=== PATIENT | female | born 1945 | race African-American/Black ===

== ENCOUNTER 2017-06-13 10:01 | Emergency (ER) | payer MEDICARE, MEDICAID, SELFPAY ==
[2017-06-13 10:26] VITALS: BP 194/104; PULSE 96; RESP 18; TEMP 37.4; O2SAT 98; BMI 28.9
--- NOTE | 2017-06-13 10:35 | HMH.EDUTC ---
[facility] [place] Disposition Clinical Impression: Muscle spasm Disposition: Home, Self-Care Condition on Discharge: Good Instructions: DI for Muscle Spasm Additional Instructions: *Ibuprofen monae 6 hours with meal as needed for pain/inflammation *Not additional anti-inflammatory like motrin, aleve, advil with the above amount of ibuprofen. You can still take Tylenol every 4 hours as needed if you need something else for pain *Ice 20 minutes every 2 hours for the first 48 hours after the initial injury followed by moist heat every 20 minutes 3-4 times a day to affected area *Muscle relaxer every 8 hours as needed for muscle spasms but remember, it WILL cause drowsiness You cannot take it and drive, operate machinery or care for small children. *Keep this area active, no movement leads to more stiffness, However take it easy and avoid heavy lifting pushing or pulling Follow up with family doctor in 24-48 hours if no improvement or worsening of symptoms Straight to ER if any life threatening problems such as chest pain, short of breath or any signs of heart problems Return if needed Take medication as prescribed Prescriptions: Methocarbamol [Robaxin 500mg Tab] 500 mg PO BID PRN #30 tab PRN Reason: Muscle Spasm Referrals: Emmanuelle Hackett MD [Primary Care Provider] - Time of Disposition: 11:23 Medical Decision Making - Medical Records Medical records reviewed: Yes: I reviewed the patient's medical records. - Marek Inquiry Pt receiving controlled substance: No Marek was queried for this patient: No Vital Signs: 06/13/17 10:26 Temperature 99.3 F Temperature Source Temporal Artery Scan Pulse Rate [Right Brachial] 96 H Respiratory Rate 18 Blood Pressure [Right Arm] 194/104 Blood Pressure Mean [Right Arm] 134 Blood Pressure Source [Right Arm] Automatic Cuff Blood Pressure Position [Right Arm] Sitting 02 Sat by Pulse Oximetry 98 Oxygen Delivery Method Room Air - Lab Data Lab results reviewed: Yes: I reviewed the patient's lab results. - Reevaluation(s) Time: 11:04 Reevaluation #1: Discussed treatment options and medication with pharmacist and agreed with recommendation of Robaxin 500mg bid [facility] [place] HPI - General Stated complaint: pain in neck area Time Seen by Provider: 06/13/17 10:30 Mode of Arrival: Family Vehicle Source of Information: Patient Limitations: No Limitations Description of Symptoms (Recalled from Triage Doc. by RN): C/O PAIN LEFT SIDE OF NECK X 4 DAYS HEENT Symptoms (Recalled from RN notes): No Resp Symptoms (Recalled from RN notes): No Skin Symptoms (Recalled from RN notes): No MS Symptoms (Recalled from RN notes): Yes Functional Status (Recalled from RN notes): N/A - History of Present Illness Provider Complaint: Patient state that she was recently moving furniture and feels like she may have pulled something in her left neck and shoulder area State that it hurts when she tries to turn her head or move that muscle in her shoulder area. State that she has tried heat pad and aspercreame but not helped and thinks she may need a little something stronger - Related Data Home Medications Medication Instructions Recorded Confirmed Aspirin [Aspir 81] 81 mg PO DAILY 06/13/17 06/13/17 Ferrous Sulfate [Iron] 325 mg PO BID 06/13/17 06/13/17 Levothyroxine Sodium 125 mcg PO DAILY 06/13/17 06/13/17 [Levothyroxine 125mcg (0.125mg) Tab] Lisinopril [Lisinopril 20mg Tab] 20 mg PO DAILY 06/13/17 06/13/17 Metformin HCl [Metformin 500mg 500 mg PO TID 06/13/17 06/13/17 Tablet] Simvastatin [Simvastatin] 10 mg PO DAILY 06/13/17 06/13/17 Verapamil HCl 120 mg PO DAILY 06/13/17 06/13/17 cloNIDine HCl [cloNIDine 0.1mg 0.1 mg PO BID 06/13/17 06/13/17 Tablet] glipiZIDE [Glipizide ER] 10 mg PO BID 06/13/17 06/13/17 hydroCHLOROthiazide [HCTZ 25mg 25 mg PO DAILY 06/13/17 06/13/17 tab] Previous Rx's Medication Instructions Recorded Methocarbamol [Robaxin 500mg Tab] 500 mg PO BID PRN #30 tab 06/13/17
--- NOTE | 2017-06-13 10:46 | ED_ITS ---
[facility] [place] Clinical Impression: Muscle spasm Disposition: Home, Self-Care Condition on Discharge: Good Instructions: DI for Muscle Spasm Additional Instructions: *Ibuprofen monae 6 hours with meal as needed for pain/inflammation *Not additional anti-inflammatory like motrin, aleve, advil with the above amount of ibuprofen. You can still take Tylenol every 4 hours as needed if you need something else for pain *Ice 20 minutes every 2 hours for the first 48 hours after the initial injury followed by moist heat every 20 minutes 3-4 times a day to affected area *Muscle relaxer every 8 hours as needed for muscle spasms but remember, it WILL cause drowsiness You cannot take it and drive, operate machinery or care for small children. *Keep this area active, no movement leads to more stiffness, However take it easy and avoid heavy lifting pushing or pulling Follow up with family doctor in 24-48 hours if no improvement or worsening of symptoms Straight to ER if any life threatening problems such as chest pain, short of breath or any signs of heart problems Return if needed Take medication as prescribed Prescriptions: Methocarbamol [Robaxin 500mg Tab] 500 mg PO BID PRN #30 tab PRN Reason: Muscle Spasm Referrals: Emmanuelle Hackett MD [Primary Care Provider] - Time of Disposition: 11:23 Medical Decision Making - Medical Records Medical records reviewed: Yes: I reviewed the patient's medical records. - Marek Inquiry Pt receiving controlled substance: No Marek was queried for this patient: No Vital Signs: 06/13/17 10:26 Temperature 99.3 F Temperature Source Temporal Artery Scan Pulse Rate [Right Brachial] 96 H Respiratory Rate 18 Blood Pressure [Right Arm] 194/104 Blood Pressure Mean [Right Arm] 134 Blood Pressure Source [Right Arm] Automatic Cuff Blood Pressure Position [Right Arm] Sitting 02 Sat by Pulse Oximetry 98 Oxygen Delivery Method Room Air - Lab Data Lab results reviewed: Yes: I reviewed the patient's lab results. - Reevaluation(s) Time: 11:04 Reevaluation #1: Discussed treatment options and medication with pharmacist and agreed with recommendation of Robaxin 500mg bid [facility] [place] - General Stated complaint: pain in neck area Time Seen by Provider: 06/13/17 10:30 Mode of Arrival: Family Vehicle Source of Information: Patient Limitations: No Limitations Description of Symptoms (Recalled from Triage Doc. by RN): C/O PAIN LEFT SIDE OF NECK X 4 DAYS HEENT Symptoms (Recalled from RN notes): No Resp Symptoms (Recalled from RN notes): No Skin Symptoms (Recalled from RN notes): No MS Symptoms (Recalled from RN notes): Yes Functional Status (Recalled from RN notes): N/A - History of Present Illness Provider Complaint: Patient state that she was recently moving furniture and feels like she may have pulled something in her left neck and shoulder area State that it hurts when she tries to turn her head or move that muscle in her shoulder area. State that she has tried heat pad and aspercreame but not helped and thinks she may need a little something stronger - Related Data Home Medications Medication Instructions Recorded Confirmed Aspirin [Aspir 81] 81 mg PO DAILY 06/13/17 06/13/17 Ferrous Sulfate [Iron] 325 mg PO BID 06/13/17 06/13/17 Levothyroxine Sodium 125 mcg PO DAILY 06/13/17 06/13/17 [Levothyroxine 125mcg (0.125mg) Tab] Lisinopril [Lisinopril 20mg Tab] 20 mg P
[2017-06-13 11:26] VITALS: BP 175/88
[2017-06-13 11:28] VITALS: BP 175/88; PULSE 88; RESP 20; TEMP 37.2; O2SAT 97
== END 2017-06-13 11:30 | disposition home or self-care (01) ==
PROVIDERS: Emergency Provider Nurse Practitioner; PCP Family Medicine
DX: M62.838 Other muscle spasm (principal); M54.2 Cervicalgia; I10 Essential (primary) hypertension; E11.9 Type 2 diabetes mellitus without complications; Z79.84 Long term (current) use of oral hypoglycemic drugs
CPT/HCPCS: G0463; 99201

== ENCOUNTER → 2017-09-13 13:50 | Outpatient (CLI) | payer MEDICARE, MEDICAID, SELFPAY ==
[2017-09-13 15:24] LABS: Free Thyroxine Index 3.5 ug/dL (5.93-13.13); T4 (Thyroxine) 9.4 ug/dl (4.7-13.3); Thyroid Stimulating Hormone 0.58 uIU/ml (0.358-3.740); Triiodothryronine (T3) Uptake 37 % (31-39)
[2017-09-15 07:23] LABS: Thyroid Peroxidase Antibodies 10 IU/mL (0-34)
[2017-09-16 06:03] LABS: Triiodothyronine (T3) Free 2.6 pg/mL (2.0-4.4)
== END ==
PROVIDERS: PCP Family Medicine; Visit Provider Otolaryngology
DX: E03.9 Hypothyroidism, unspecified (principal)
CPT/HCPCS: 36415; 84436; 84443; 84479; 84481; 86376

== ENCOUNTER → 2017-09-17 14:17 | Outpatient (CLI) | payer MEDICARE, MEDICAID, SELFPAY ==
--- NOTE | 2017-09-17 14:19 | US_ITS ---
ULTRASOUND THYROID HISTORY:. Follow-up thyroidectomy COMPARISON: Previous thyroid ultrasound, preoperative 03-09-14 PROCEDURE: Multiple sagittal and transverse ultrasound images of the thyroid. FINDINGS: The patient has had the thyroid totally removed in 2014. No recurrent thyroid mass or nodule evident.. The generous tracheal shadow dominates of midline with vascular structures flank to the right and left. No recurrent mass evident by ultrasound survey. Consider CT neck further evaluate the palpable areas developed IMPRESSION: Total thyroidectomy 2014. Total Removed 2014 as per patient. No evident nor appreciable recurrent nodules or masses.
== END ==
PROVIDERS: PCP Family Medicine; Visit Provider Otolaryngology
DX: E03.9 Hypothyroidism, unspecified (principal)
CPT/HCPCS: 76536

== ENCOUNTER 2017-12-22 23:29 | Observation (INO) ==
[2017-12-22 23:43] LABS: Basophils % 0.5 % (0.1-2.0); Eosinophils # 0.2 K/mm3 (0.0-0.4); Hematocrit 37.4 % (37.0-47.0); Hemoglobin 12.2 g/dL (12.2-16.2); Lymphocytes # 3.1 K/mm3 (0.7-4.5); Lymphocytes % 34.3 K/mm3 (10-50); Mean Corpuscular HGB Conc 32.7 g/dL (31.8-35.4); Mean Corpuscular Volume 88.6 fl (81-99); Mean Platelet Volume 7.8 fl (7.4-10.4); Monocytes # 0.8 K/mm3 (0.1-1.0); Monocytes % 9.2 % (1.7-9.3); Neutrophils # 4.9 K/mm3 (1.8-7.8); Platelet Count 363 K/mm3 (142-424); Red Blood Count 4.22 M/mm3 (4.20-5.40); Red Cell Distribution Width 14.8 % (11.5-17.5)
[2017-12-22 23:56] LABS: Anion Gap 14.6 mEq/L (5-15); Blood Urea Nitrogen 29 mg/dL (7-18); Calcium 9.4 mg/dL (8.5-10.1); Carbon Dioxide 28 mmol/L (21.0-32.0); Chloride 103 mmol/L (98-107); Glucose 96 mg/dL (74-106); Potassium 3.6 mmoL/L (3.5-5.1); Sodium 142 mmol/L (136-145)
[2017-12-23 00:18] LABS: Microscopic, Urine URINE MICROSCOPIC (MICROSCOPIC)
[2017-12-23 00:19] LABS: Appearance,Urine CLEAR (Clear); Bilirubin,Urine Negative (Negative); Blood, Urine Negative (Negative); Color,Urine YELLOW (Yellow); Glucose,Urine (UA) Negative (Negative); Ketones,Urine Negative (Negative); Leukocyte Esterase,Urine Negative (Negative); Protein,Urine Negative (Negative); Urobilinogen,Urine 0.2 EU/dl (0.2)
[2017-12-23 00:26] LABS: Squamous Epithelial Cell,Urine Occasional #/hpf (0-5); WBC,Urine Occasional #/hpf (0-3)
[2017-12-23 00:27] LABS: Bacteria,Urine Trace /lpf
--- NOTE | 2017-12-23 01:30 | Emergency Department Note ---
ED Disposition Clinical Impression: Hypertensive emergency, Renal insufficiency Chest pain Qualifiers: Chest pain type: precordial pain Qualified Code(s): R07.2 - Precordial pain Disposition: Admitted as Observation Condition on Discharge: Good Referrals: Emmanuelle Hackett MD [Primary Care Provider] - - Critical Care Critical Care Time: No Attestation: On 12/22/17, the high probability of a clinically significant, sudden or life threatening deterioration of the following system(s) required my full and direct attention, intervention and personal management. The time I documented below is in addition to time spent performing reported procedures but includes the following listed in this critical care notation. Medical Decision Making - Medical Records Medical records reviewed: Yes: I reviewed the patient's medical records. - Marek Inquiry Pt receiving controlled substance: No Vital Signs: 12/22/17 23:30 12/22/17 23:38 12/23/17 00:00 Temperature 98.6 F 98.5 F Temperature Source Oral Oral Pulse Rate [Right] 94 H 67 73 Respiratory Rate 20 15 15 Blood Pressure [Right Arm] 250/130 H 221/115 H 227/101 H Blood Pressure Mean [Right Arm] 170 150 143 Blood Pressure Source [Right Arm] Manual Cuff/ Doppler Automatic Cuff Blood Pressure Position [Right Arm] Supine 02 Sat by Pulse Oximetry 98 99 100 Oxygen Delivery Method Room Air Room Air Room Air 12/23/17 00:12 12/23/17 00:13 12/23/17 00:37 Temperature Temperature Source Pulse Rate [Right] 65 65 69 Respiratory Rate 20 20 15 Blood Pressure [Right Arm] 233/108 H 230/108 H 224/116 H Blood Pressure Mean [Right Arm] 149 148 152 Blood Pressure Source [Right Arm] Manual Cuff/ Auscultation Manual Cuff/ Auscultation Blood Pressure Position [Right Arm] Sitting 02 Sat by Pulse Oximetry 100 97 97 Oxygen Delivery Method Room Air Room Air Room Air 12/23/17 00:52 12/23/17 01:17 Temperature Temperature Source Pulse Rate [Right] 59 L 61 Respiratory Rate 15 Blood Pressure [Right Arm] 221/120 H 199/99 H Blood Pressure Mean [Right Arm] 153 132 Blood Pressure Source [Right Arm] Blood Pressure Position [Right Arm] 02 Sat by Pulse Oximetry 98 100 Oxygen Delivery Method - Lab Data Lab results reviewed: Yes: I reviewed the patient's lab results. Lab Results 12/22/17 23:30: WBC 9.0, RBC 4.22, Hgb 12.2, Hct 37.4, MCV 88.6, MCH 29.0, MCHC 32.7, RDW 14.8, Plt Count 363, MPV 7.8, Neut % (Auto) 54.0, Lymph % (Auto) 34.3, [place] % (Auto) 9.2, Eos % (Auto) 2.0, Baso % (Auto) 0.5, Neut # (Auto) 4.9, Lymph # (Auto) 3.1, [place] # (Auto) 0.8, Eos # (Auto) 0.2, Baso # (Auto) 0.0 12/22/17 23:30: Sodium 142, Potassium 3.6, Chloride 103, Carbon Dioxide 28, Anion Gap 14.6, BUN 29 H, Creatinine 1.52 H, Estimated Creat Clear 35, Estimated GFR 34 L, Est GFR ( Amer) 41 L, Glucose 96, Calcium 9.4, Troponin I < 0.02 12/23/17 00:15: Urine Color Yellow, Urine Appearance Clear, Urine pH 7.0, Ur Specific [place] 1.010, Urine Protein Negative, Urine Glucose (UA) Negative, Urine Ketones Negative, Urine Blood Negative, Urine Nitrate Negative, Urine Bilirubin Negative, Urine Urobilinogen 0.2, Ur Leukocyte Esterase Negative, Urine WBC Occasional, Ur Squamous Epith Cells Occasional, Urine Bacteria Trace Result diagrams: 12/22/17 23:30 12/22/17 23:30 Orders (Tests/Meds): ED MEDICATIONS Discontinued Medications Generic Name Dose Route Start Last Admin Trade Name Maria Teresa PRN Reason Stop Dose Admin Aspirin 243 mg 12/22/17 23:35 12/22/17 23:37 Aspirin 81mg Chewable Tablet PO 12/22/17 23:36 243 mg ONCE ONE Administration Lisinopril 20 mg 12/23/17 00:59 12/23/17 01:00 Zestril 20mg Tab PO 12/23/17 01:00 20 mg ONCE ONE Administration Metoprolol Tartrate 2.5 mg 12/23/17 00:02 12/23/17 00:03 Metoprolol Tartrate 5mg/5ml Vial IV 12/23/17 00:03 2.5 mg ONCE ONE Administration Metoprolol Tartrate 2.5 mg 12/23/17 00:37 12/23/17 00:38 Metoprolol Tartrate 5mg/5ml Vial IV 12/23/17 00:38 2.5 mg ONCE ONE Administration Nitroglycerin 1 gm 12/22/17 23:35 12/22/17 23:37 Nitroglycerin 1 Inch Oint Udp TD 12/22/17 23:36 1 gm ONCE ONE Administration ORDERS Category Date Time Status CT head/brain wo con Stat Cat Scan 12/23/17 00:10 Taken XR chest 2V Stat Exams 12/22/17 23:35 Taken Urinalysis-Acute [Urinalysis and Microscopic] Stat Lab 12/23/17 00:15 Ordered 12-lead EKG Request [ECG Request by /Breanne] Stat Y 12/22/17 23:35 Ordered - Radiology Data #1 Image(s): Chest Image Reviewed: Yes I reviewed the patient's radiology image Preliminary Findings: Normal/NAD - CT Data CT Scan: Head Time Received: 01:34 Preliminary Findings: Normal/NAD - ECG Data Tracing #1 Normal Sinus Rhythm: Yes Ischemic changes: non-specific ST-T wave changes Chest Pain HPI - General Chief Complaint: Chest Pain Stated Complaint: Chest pain Time Seen by Provider: 12/23/17 00:00 Mode of Arrival: Ambulatory Source of Information: Patient, Relative, Medical Record Limitations: No Limitations Description of Symptoms (Recalled from ER Triage Doc. by RN): Midsternal CP that radiates to left side, denies any other s/s. - History of Present Illness HPI narrative: pt with lt sided chest pain with rad to back which started tonight and reported as new - pt has diabetes and htn - no recent card cath and had shlomo gxt 04/24 complaint: chest pain indicative of cardiac Onset (ago): hour(s) Duration: constant Activity at onset: during rest Pain location: left chest Severity: moderate Associated symptoms: nausea Risk Factors for CAD: Hypertension, Family Hx of CAD, Diabetes Treatments prior to or on arrival for Cardiac Chest Pain: none - MICHAEL Score Non-Stemi Age of patient: 65 yrs or more Number of risk factors for CAD: Presence of 3 or more Prior coronary artery stenosis(seen in coronary angiography): Less than 50% ST-Segment deviation on ECG (more than 1 min): Absent Prior aspirin intake: ASA intake in the last 7 days Severe anginal chest pain: No or one episode in last 24 hours Elevated cardiac markers(CK-MB or troponin): Absent Non-Stemi Risk Score: 3 - Related Data Prior Cardiac Testing/Procedures: Stress Test On Oral Contraceptives: No Home Medications Medication Instructions Recorded Confirmed Aspirin [Aspir 81] 81 mg PO DAILY 06/13/17 12/22/17 Ferrous Sulfate [Iron] 325 mg PO BID 06/13/17 12/22/17 Levothyroxine Sodium 125 mcg PO DAILY 06/13/17 12/22/17 [Levothyroxine 125mcg (0.125mg) Tab] Lisinopril [Lisinopril 20mg Tab] 20 mg PO DAILY 06/13/17 12/22/17 Metformin HCl [Glucophage 500mg 500 mg PO TID 06/13/17 12/22/17 Tablet] Simvastatin 10 mg PO DAILY 06/13/17 12/22/17 Verapamil HCl 120 mg PO DAILY 06/13/17 12/22/17 hydroCHLOROthiazide [HCTZ 25mg 25 mg PO DAILY 06/13/17 12/22/17 tab] cloNIDine HCl [cloNIDine 0.2mg 0.2 mg PO BID 12/22/17 12/22/17 Tablet] glipiZIDE [Glipizide] 10 mg PO BID 12/22/17 12/22/17 Previous Rx's Medication Instructions Recorded Methocarbamol [Robaxin 500mg Tab] 500 mg PO BID PRN #30 tab 06/13/17 Allergies Allergy/AdvReac Type Severity Reaction Status Date / Time No Known Allergies Allergy Verified 09/23/17 13:57 [facility] History I have reviewed the patient's past medical history: Yes Medical History: Reports:: Diabetes Mellitus Type 2 - Social History Smoking Status: Never smoker Alcohol Intake: never Substance Use Type: denies use - Psychiatric History Expresses thoughts of harming self/others: None Suicide Plan Description: No Plan Family Hx:: Hyperlipidemia, Hypertension ROS Obtained: Yes All systems reviewed & no additional complaints - Constitutional Constitutional: Denies fever(s) - Eyes Eyes: Denies change in vision - ENT Ears, Nose, Mouth, and Throat: Denies sore throat - Cardiovascular Cardiovascular: Reports chest pain, Denies dyspnea - Respiratory Respiratory: No cough - Gastrointestinal Gastrointestingal: Denies: abdominal pain - Genitourinary Female Genitourinary: Denies hematuria - Musculoskeletal Musculoskeletal: Denies joint pain - Integumentary/Breasts Skin/Breast: Denies rash - Neurologic Neurologic: Denies seizure-like activity Physical Exam - General General appearance: alert - Head Head exam: normocephalic - Eye Eye exam: Present: PERRL, EOMI - ENT ENT exam: Present: mucous membranes dry - Neck Neck exam: Present: trachea midline - Respiratory Respiratory exam: Present: normal lung sounds bilaterally. Absent: respiratory distress - Cardiovascular Cardiovascular exam: Present: regular rate, systolic murmur, +S4 - Abdominal Exam Abdominal exam: Present: soft - Extremities Exam Extremities exam: Absent: calf tenderness - Neurological Exam Neurological exam: Present: alert, oriented X3, CN II-XII intact - Psychiatric Psychiatric exam: Present: normal affect - Skin Skin exam: Absent: rash
[2017-12-23 02:16] LABS: T4 (Thyroxine) 10.4 ug/dl (4.7-13.3); Thyroid Stimulating Hormone 0.62 uIU/ml (0.358-3.740)
[2017-12-23 05:24] LABS: Basophils % 0.4 % (0.1-2.0); Eosinophils # 0.2 K/mm3 (0.0-0.4); Eosinophils % 2.1 % (0.1-12.0); Hematocrit 37.1 % (37.0-47.0); Hemoglobin 11.9 g/dL (12.2-16.2); Lymphocytes # 2.2 K/mm3 (0.7-4.5); Lymphocytes % 27.6 K/mm3 (10-50); Mean Corpuscular Hemoglobin 28.7 pg (27.0-31.2); Mean Corpuscular Volume 89.6 fl (81-99); Mean Platelet Volume 7.6 fl (7.4-10.4); Monocytes # 0.6 K/mm3 (0.1-1.0); Monocytes % 7.9 % (1.7-9.3); Neutrophils # 4.8 K/mm3 (1.8-7.8); Neutrophils % 61.9 % (37.0-80.0); Platelet Count 348 K/mm3 (142-424); Red Blood Count 4.13 M/mm3 (4.20-5.40); Red Cell Distribution Width 14.8 % (11.5-17.5); White Blood Count 7.8 K/mm3 (4.8-10.8)
[2017-12-23 06:38] LABS: Anion Gap 17.8 mEq/L (5-15); Calcium 9.2 mg/dL (8.5-10.1); Potassium 3.8 mmoL/L (3.5-5.1)
--- NOTE | 2017-12-23 07:14 | History & Physical Report ---
*Admission Date: 12/23/17 *Chief complaint: Chest pain *History of present illness: 72-year-old female with history of diabetes, hypertension, chronic kidney disease stage III presented to the emergency department after onset of chest pain described as being in the upper left pectoral area radiating into the shoulder blade and down the left arm. Patient was found to be hypertensive with a systolic pressure of 230. She was treated with metoprolol, clonidine. Blood pressures were brought down to the low 200s and 190s. Initial EKG and cardiac enzymes were unremarkable. Patient was admitted for serial enzymes as well as further treatment of her hypertensive emergency. Since admission to the floor patient's chest pain has resolved. She admits she feels an aching pain in the left shoulder blade still. There is no pain radiating down the left arm. Patient has a long history of hypertension that has been difficult to control. She has undergone prior cardiac catheterizations in 2005 and 2007 as well as Lexiscan stress test in 2017. She has never been found to have significant obstructive coronary disease. She is also a diabetic. Her last A1c was 6.4. 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 [facility] [place] History I have reviewed the patient's past medical history: Yes Medical History: Reports:: Diabetes Mellitus Type 2, Hypertension Denies:: Cancer, MRSA Other Medical History: Reports: Anemia, Arthritis, Thyroid Disease Other Surgeries: Yes: Colonoscopy, Colostomy, Hysterectomy-Total, Thyroidectomy Amputation: No Fractures: No - *Social History Educational Level: Attended High School Smoking Status: Never smoker Alcohol Intake: never Substance Use Type: denies use Occupational Status: retired Housing: house - Psychiatric History Expresses thoughts of harming self/others: None Suicide Plan Description: No Plan *Family Hx:: Cancer, Heart Attack, Hyperlipidemia, Hypertension Review of Systems - Review of Systems Review of systems:: pertinent systems reviewed and negative unless documented below - *Neurologic Denies seizure-like activity Meds Home Medications Medication Instructions Recorded Confirmed Type Aspirin [Aspir 81] 81 mg PO DAILY 06/13/17 12/22/17 History Ferrous Sulfate [Iron] 325 mg PO BID 06/13/17 12/22/17 History Levothyroxine Sodium 112 mcg PO DAILY 06/13/17 12/23/17 History [Levothyroxine 125mcg (0.125mg) Tab] Lisinopril [Lisinopril 20mg Tab] 20 mg PO DAILY 06/13/17 12/22/17 History Metformin HCl [Glucophage 500mg 500 mg PO TID 06/13/17 12/22/17 History Tablet] Simvastatin 10 mg PO DAILY 06/13/17 12/22/17 History Verapamil HCl 120 mg PO DAILY 06/13/17 12/22/17 History hydroCHLOROthiazide [HCTZ 25mg 25 mg PO DAILY 06/13/17 12/22/17 History tab] cloNIDine HCl [cloNIDine 0.2mg 0.2 mg PO BID 12/22/17 12/22/17 History Tablet] glipiZIDE [Glipizide] 10 mg PO BID 12/22/17 12/22/17 History Allergies Allergy/AdvReac Type Severity Reaction Status Date / Time No Known Allergies Allergy Verified 09/23/17 13:57 Exam Vital signs and Labs for Last 24 Hours: Temp Pulse Resp BP Pulse Ox 98.2 F 62 17 196/86 H 100 12/23/17 04:04 12/23/17 04:04 12/23/17 04:04 12/23/17 04:04 12/23/17 04:04 Laboratory Results - last 24 hr 12/22/17 23:30: WBC 9.0, RBC 4.22, Hgb 12.2, Hct 37.4, MCV 88.6, MCH 29.0, MCHC 32.7, RDW 14.8, Plt Count 363, MPV 7.8, Neut % (Auto) 54.0, Lymph % (Auto) 34.3, [place] % (Auto) 9.2, Eos % (Auto) 2.0, Baso % (Auto) 0.5, Neut # (Auto) 4.9, Lymph # (Auto) 3.1, [place] # (Auto) 0.8, Eos # (Auto) 0.2, Baso # (Auto) 0.0 12/22/17 23:30: Sodium 142, Potassium 3.6, Chloride 103, Carbon Dioxide 28, A nion Gap 14.6, BUN 29 H, Creatinine 1.52 H, Estimated Creat Clear 35, Estimated GFR 34 L, Est GFR ( Amer) 41 L, Glucose 96, Calcium 9.4, Troponin I < 0.02 12/23/17 00:00: TSH 0.62, Thyroxine (T4) 10.4 12/23/17 00:15: Urine Color Yellow, Urine Appearance Clear, Urine pH 7.0, Ur Specific [place] 1.010, Urine Protein Negative, Urine Glucose (UA) Negative, Urine Ketones Negative, Urine Blood Negative, Urine Nitrate Negative, Urine Bilirubin Negative, Urine Urobilinogen 0.2, Ur Leukocyte Esterase Negative, Urine WBC Occasional, Ur Squamous Epith Cells Occasional, Urine Bacteria Trace 12/23/17 04:49: Troponin I 0.04 12/23/17 04:49: WBC 7.8, RBC 4.13 L, Hgb 11.9 L, Hct 37.1, MCV 89.6, MCH 28.7, MCHC 32.0, RDW 14.8, Plt Count 348, MPV 7.6, Neut % (Auto) 61.9, Lymph % (Auto) 27.6, [place] % (Auto) 7.9, Eos % (Auto) 2.1, Baso % (Auto) 0.4, Neut # (Auto) 4.8, Lymph # (Auto) 2.2, [place] # (Auto) 0.6, Eos # (Auto) 0.2, Baso # (Auto) 0.0 12/23/17 04:49: Sodium 144, Potassium 3.8, Chloride 104, Carbon Dioxide 26, Anion Gap 17.8 H, BUN 25 H, Creatinine 1.42 H, Estimated Creat Clear 38, Estimated GFR 37 L, Est GFR ( Amer) 44 L, Glucose 52 L D, Calcium 9.2 I & O for Last 24 hours: Intake & Output 12/20/17 12/21/17 12/22/17 12/23/17 11:59 11:59 11:59 11:59 Intake Total 138 / 138 Output Total 300 / 300 Balance -162 / -162 Weight 143 lb 9.005 oz - Constitutional no acute distress - *Routine Neck Exam Present: full ROM. Absent: JVD, carotid bruit - *Routine Respiratory Exam Present: CTA bilaterally - *Routine Cardiovascular Exam Present: RRR, Normal S1, Normal S2 - *Routine Abdominal Exam Present: soft. Absent: mass - *Routine Extremities Exam Absent: edema Assessment and Plan (1) Hypertensive emergency Current visit: Yes Status: Acute Category: Medical Code(s): I16.1 - Hypertensive emergency (2) Stage III chronic kidney disease Current visit: Yes Status: Acute Category: Medical Code(s): N18.3 - Chronic kidney disease, stage 3 (moderate) (3) Diabetes mellitus type 2 in nonobese Current visit: Yes Status: Acute Category: Medical Code(s): E11.9 - Type 2 diabetes mellitus without complications (4) Chest pain Current visit: Yes Status: Acute Qualifiers: Chest pain type: precordial pain Qualified Code(s): R07.2 - Precordial pain Category: Medical Code(s): R07.9 - Chest pain, unspecified - Assessment and plan all Dx Assessment and Plan for all problems:: 1. Echocardiogram today along with serial troponins 2. Increase verapamil to 3 times daily. Continue clonidine 0.2 mg twice daily. Add isosorbide mononitrate 60 mg. Continue lisinopril 20 mg. Continue HCTZ 25 mg daily.
--- NOTE | 2017-12-23 09:14 | Pharmacy Consult Notes ---
[facility] Pharmacy VTE Monitoring - Patient Demographics Admission date: 12/23/17 Report Date: 12/23/17 Time: 09:14 Allergies/Adverse Reactions: Patient Allergies No Known Allergies Allergy (Verified 09/23/17 13:57) Height: 1.52 m Weight: 65.119 kg Patient Problems: Current Active Problems Chest pain (Acute) Hypertensive emergency (Acute) Renal insufficiency (Acute) Stage III chronic kidney disease (Acute) Diabetes mellitus type 2 in nonobese (Acute) - VTE Risk Labs: VTE Related Lab Results Hgb 11.9 g/dL (12.2-16.2) L 12/23/17 04:49 Hct 37.1 % (37.0-47.0) 12/23/17 04:49 Plt Count 348 K/mm3 (142-424) 12/23/17 04:49 BUN 25 mg/dL (7-18) H 12/23/17 04:49 Creatinine 1.42 mg/dL (0.55-1.02) H 12/23/17 04:49 Estimated Creat Clear 38 mL/min (0-300) 12/23/17 04:49 Was VTE Risk Assessment Performed: Yes VTE Score: 2 VTE Risk Level: Very Low Risk Clinical Trial Participant: No - Prophylaxis VTE Prophylaxis Ordered?: Yes Types of VTE Prophylaxis: TEDS Knee High Location of Applied Device: Bilateral Lower Extremeties
--- NOTE | 2017-12-23 11:40 | Cardiology Report ---
PROCEDURE: 2-D M-mode and color Doppler study INDICATIONS FOR THE TEST: Chest pain X COPD Heart Murmur Tobacco Smoking Palpitations Fatigue Syncope Edema HypertensionXDiabetes Mellitus Rheumatic Fever SOB TOSCANO Obesity HyperlipidemiaX Family History HD Additional History PATIENT INFORMATION HEIGHT: 61 WEIGHT:143 GENDER: Female B/P:227/101 2-D/M-MODE INTERPRETATION: 2-D MEASUREMENTS OBSERVED VALUES IN CMS Right Ventricular Dimension (RVDd) 1.5 Interventricular Septum (Thickness)(IVsd) 1.2 Left Ventricular Internal Dimensions(LVIDd) 5.5 Left Ventricular Posterior Wall (Thickness)(LVPWd) 1.2 Aortic Root 3.0 Aortic Cusp Separation 1.4 Left Atrial Dimensions (LAD) 3.1 2D 1. Left atrium is qualitatively mildly enlarged, left ventricle is normal size, mild concentric left ventricular hypertrophy, visually estimated ejection fraction 50% with no regional wall motion abnormality. 2. The right atrium and right ventricle are normal size and contractility. 3. The aortic valve is minimally thickened and fibrosed. 4. The mitral and tricuspid valve leaflets are minimally thickened. 5. The pulmonic valve is poorly visualized. 6. No significant pericardial effusion noted. DOPPLER INTERROGATION: Doppler interrogation of the aortic, mitral and tricuspid valvular presence of mild mitral and tricuspid regurgitation, tricuspid regurgitation jet velocity is inadequate for calculation of the right ventricular systolic pressure, grade 1 diastolic dysfunction seen with tissue Doppler evidence of raised left atrial pressure. CONCLUSION: 1. Mildly enlarged left atrium, normal left ventricular size, mild concentric left ventricular hypertrophy, visually estimated ejection fraction 50% with no regional wall motion abnormality, grade 1 diastolic dysfunction seen with tissue Doppler evidence of raised left atrial pressure. 2. Mild mitral and tricuspid regurgitation 3. No significant pericardial effusion noted.
[2017-12-24 06:05] LABS: Anion Gap 12.8 mEq/L (5-15); Calcium 8.3 mg/dL (8.5-10.1); Potassium 3.8 mmoL/L (3.5-5.1)
--- NOTE | 2017-12-24 07:13 | Discharge Summary ---
General - General Admission date:: 12/23/17 Discharge date: 12/24/17 HPI HPI: 72-year-old female with history of diabetes, hypertension, chronic kidney disease stage III presented to the emergency department after onset of chest pain described as being in the upper left pectoral area radiating into the shoulder blade and down the left arm. Patient was found to be hypertensive with a systolic pressure of 230. She was treated with metoprolol, clonidine. Blood pressures were brought down to the low 200s and 190s. Initial EKG and cardiac enzymes were unremarkable. Patient was admitted for serial enzymes as well as further treatment of her hypertensive emergency. Since admission to the floor patient's chest pain has resolved. She admits she feels an aching pain in the left shoulder blade still. There is no pain radiating down the left arm. Patient has a long history of hypertension that has been difficult to control. She has undergone prior cardiac catheterizations in 2005 and 2007 as well as Lexiscan stress test in 2017. She has never been found to have significant obstructive coronary disease. She is also a diabetic. Her last A1c was 6.4. Her haunted history tour guide is Dr. Hyman. Hospital Course Hospital Course: Patient's blood pressure was reduced to 200 systolic in the emergency department and patient was admitted for observation, serial troponins, serial blood pressure checks. On the morning of December 23 patient's home medications were restarted and isosorbide 60 mg daily was added. Patient's verapamil was changed to 3 times daily. By the afternoon of December 23 patient's blood pressure had decreased to the 160 systolic. She was monitored overnight and blood pressures remained 160 or less systolic. Patient's chest pain resolved once her blood pressure dropped below 190. Troponins were negative x4. Echocardiogram was performed which showed normal ejection fraction but evidence of grade 1 diastolic dysfunction. Renal function was followed. Creatinine was 1.52 on presentation to the ER. After IV fluids overnight it had decreased to 1.42. By the following morning (December 24) creatinine had risen back to 1.5. Patient was discharged home on December 24 and will follow-up next Wednesday, December 31 with Shelly Munoz APRN. She will have isosorbide 30 mg added to her regimen. Verapamil will be adjusted to 3 times per day. Due to her decreased GFR patient will also need to stop metformin at discharge. She will be continued on her glipizide only. Objective Vital signs: Temp Pulse Resp BP Pulse Ox 97.7 F 66 18 113/61 98 12/24/17 05:30 12/24/17 05:30 12/24/17 05:30 12/24/17 05:30 12/24/17 05:30 Results Labs on day of discharge: Labs from last 24 hours 12/24/17 12/23/17 12/23/17 05:40 20:44 11:50 Sodium 142 Potassium 3.8 Chloride 105 Carbon Dioxide 28 Anion Gap 12.8 BUN 23 H Creatinine 1.52 H Estimated Creat Clear 36 Estimated GFR 34 L Est GFR ( Amer) 41 L Glucose 170 H POC Glucose 242 H 234 H Calcium 8.3 L Troponin I 12/23/17 12/23/17 12/23/17 10:42 07:41 06:24 Sodium Potassium Chloride Carbon Dioxide Anion Gap BUN Creatinine Estimated Creat Clear Estimated GFR Est GFR ( Amer) Glucose POC Glucose 116 H Calcium Troponin I < 0.02 0.03 12/23/17 12/23/17 12/23/17 06:01 05:48 05:38 Sodium Potassium Chloride Carbon Dioxide Anion Gap BUN Creatinine Estimated Creat Clear Estimated GFR Est GFR ( Amer) Glucose POC Glucose 68 L 54 L 53 L Calcium Troponin I DS: Diagnosis - Discharge Diagnosis (1) Hypertensive emergency Status: Acute (2) Stage III chronic kidney disease Status: Chronic (3) Diabetes mellitus type 2 in nonobese Status: Chronic (4) Chest pain Status: Acute (5) Diastolic dysfunction without heart failure Status: Acute Discharge Plan - Patient Discharge Instructions ACTIVITY: Continue current activity DIET: continue same diet - Follow up Plan Follow up with: Shelly Munoz APRN [Nurse Practitioner] - 12/31/17 10:00 am Disposition: Home, Self-[facility] Medications: Home Medications Medication Instructions Recorded Confirmed Type Aspirin [Aspir 81] 81 mg PO DAILY 06/13/17 12/22/17 History Ferrous Sulfate [Iron] 325 mg PO BID 06/13/17 12/22/17 History Levothyroxine Sodium 112 mcg PO DAILY 06/13/17 12/23/17 History [Levothyroxine 125mcg (0.125mg) Tab] Lisinopril [Lisinopril 20mg Tab] 20 mg PO DAILY 06/13/17 12/22/17 History Metformin HCl [Glucophage 500mg 500 mg PO DAILY 06/13/17 12/23/17 History Tablet] Simvastatin 10 mg PO DAILY 06/13/17 12/22/17 History Verapamil HCl 120 mg PO BID 06/13/17 12/23/17 History hydroCHLOROthiazide [HCTZ 25mg 25 mg PO DAILY 06/13/17 12/22/17 History tab] cloNIDine HCl [cloNIDine 0.2mg 0.2 mg PO BID 12/22/17 12/22/17 History Tablet] glipiZIDE [Glipizide] 10 mg PO BID 12/22/17 12/22/17 History Metformin HCl 1,500 mg PO PM 12/23/17 12/23/17 History Prescriptions/Medication Reconciliation: New Verapamil HCl [Verapamil HCl] 120 mg PO TID #90 Isosorbide Mononitrate [Imdur 30mg ER tablet] 30 mg PO DAILY #30 tab.er.24h Continue Ferrous Sulfate [Iron] 325 mg PO BID Lisinopril [Lisinopril 20mg Tab] 20 mg PO DAILY Levothyroxine Sodium [Levothyroxine 125mcg (0.125mg) Tab] 112 mcg PO DAILY Simvastatin 10 mg PO DAILY hydroCHLOROthiazide [HCTZ 25mg tab] 25 mg PO DAILY Aspirin [Aspir 81] 81 mg PO DAILY glipiZIDE [Glipizide] 10 mg PO BID cloNIDine HCl [cloNIDine 0.2mg Tablet] 0.2 mg PO BID Methocarbamol [Robaxin 500mg Tab] 500 mg PO BID PRN #30 tab PRN Reason: Muscle Spasm Discontinued Metformin HCl [Glucophage 500mg Tablet] 500 mg PO DAILY Metformin HCl 1,500 mg PO PM Verapamil HCl 120 mg PO BID
== END 2017-12-24 08:20 | disposition home or self-care (01) ==
LOC: 2ND 23:29 → ER 23:29 → 2ND 12-23 01:57
PROVIDERS: ADMIT Emergency Medicine; ATTEND Family Medicine
CPT/HCPCS: 36415; 70450; 71020; 71046; 80048; 81001; 82962; 84436; 84443; 84484; 85025; 93005; 93306; 96374; 96376; 99285; G0378

== ENCOUNTER → 2018-01-21 06:39 | Outpatient (CLI) | payer MEDICARE, MEDICAID, SELFPAY ==
--- NOTE | 2018-01-21 06:43 | NM_ITS ---
History and Indications: Hypertension, diabetes, hyperlipidemia, family history Procedure: Patient received a 0.4 mg of intravenous Lexiscan, resting heart rate was 49 bpm resting blood pressure 190/86, with Lexiscan maximum heart rate achieved was 94 bpm which is less than 85% of the maximum predicted heart rate and a blood pressure was 154/80. With Lexiscan no symptoms reported. Electrocardiogram: Resting electrocardiogram showed sinus bradycardia, nonspecific ST-T changes, with Lexiscan less than 1.[address] segment depression noted from the baseline EKG, occasional premature ventricular complex present. The EKG portion of the Lexiscan Myoview is nondiagnostic. Cardiac stress and resting SPECT images: Cardiac stress and rest SPECT images were obtained using technetium 99 Myoview 32.2 mCi stress and 10.3 mCi at rest. Gated SPECT further analysis of segmental wall motion and calculation of the ejection fraction also done. Cardiac stress and rest images show a fixed defect in the anterior wall with normal contractility in the gated SPECT is likely secondary to soft tissue attenuation from breast, no reversible ischemia seen. Irregularity ejection fraction 43%, left ventricle is globally hypokinetic. Right ventricle is normal size and contractility. Conclusion: 1. The EKG portion of the Lexiscan Myoview is nondiagnostic. 2. No scintigraphic evidence of reversible ischemia seen, a fixed defect in the anterior wall with normal contractility gated SPECT is likely secondary to soft tissue attenuation from the breast, computer derived ejection fraction is 43% with left ventricle is hypokinetic, right ventricle is normal size and contractility. 3. Abnormal Lexiscan Myoview study.
--- NOTE | 2018-01-21 09:30 | HMH.ITSHM ---
Current Home Medications as stated by this patient Carol Cazares or order entry representative. []asa isosorbide iron glipizide simvastatin levothyroxine lisinopril methocarbamol hydrochlorothiazide
== END ==
PROVIDERS: PCP Family Medicine; Visit Provider Internal Medicine Cardiovascular Disease
DX: E11.9 Type 2 diabetes mellitus without complications (principal); I16.1 Hypertensive emergency; I42.9 Cardiomyopathy, unspecified; I51.89 Other ill-defined heart diseases; M62.838 Other muscle spasm; N18.3 Chronic kidney disease, stage 3 (moderate); N28.9 Disorder of kidney and ureter, unspecified; R07.9 Chest pain, unspecified; R94.31 Abnormal electrocardiogram [ECG] [EKG]
CPT/HCPCS: 78452; 93017; A9502; J2785

== ENCOUNTER → 2018-09-12 14:04 | Outpatient (CLI) | payer MEDICARE, MEDICAID, SELFPAY ==
[2018-09-12 16:53] LABS: Free T4 (Free Thyroxine) 1.24 ng/dl (0.76-1.46); Thyroid Stimulating Hormone 6.97 uIU/ml (0.358-3.740)
[2018-09-14 14:42] LABS: Thyroid Peroxidase Antibodies 9 IU/mL (0-34)
[2018-09-15 18:20] LABS: Thyroid Stimulating Immunoglob <0.10 IU/L (0.00-0.55)
== END ==
PROVIDERS: Visit Provider Otolaryngology
DX: E04.1 Nontoxic single thyroid nodule (principal); Z90.09 Acquired absence of other part of head and neck
CPT/HCPCS: 36415; 84439; 84443; 84445; 86376

== ENCOUNTER → 2018-09-16 10:12 | Outpatient (CLI) | payer MEDICARE, MEDICAID, SELFPAY ==
--- NOTE | 2018-09-16 10:16 | US_ITS ---
US thyroid HISTORY: History of Thyroid disease, prior thyroidectomy ITS.REASON: ho thyroid surgery ORDERING PHYSICIAN: Jesus Dorantes MD PATIENT AGE: 73 years Comparison: 09/17/2017 FINDINGS status post bilateral thyroidectomy. No sonographic visualized residual thyroid tissue evident. No masses within the thyroid bed. IMPRESSION: Status post thyroidectomy as described above
== END ==
PROVIDERS: PCP Family Medicine; Visit Provider Otolaryngology
DX: E04.1 Nontoxic single thyroid nodule (principal); Z90.09 Acquired absence of other part of head and neck
CPT/HCPCS: 76536

== ENCOUNTER → 2019-01-27 10:43 | Outpatient (CLI) | payer MEDICARE, MEDICAID, SELFPAY ==
--- NOTE | 2019-01-27 10:51 | MM_ITS ---
PROCEDURE: MM DIG SCREENING MAMM BI W/CAD CLINICAL INDICATION: SCREENING There is a history of breast cancer patient's paternal aunt. COMPARISON: DMSB DIG MAMM-SCREEN ROB from 12/31/2015 DMDXUAVL DIG MAMM-DX UNI ADD VIEWS-LT from 01/17/2016 DMSB DIG MAMM-SCREEN ROB W/CAD from 12/24/2016 TECHNIQUE: Standard CC and MLO images were obtained. R2 CAD reviewed. FINDINGS: Scattered diffuse fibroglandular densities are seen throughout both breast and the findings are fairly symmetrical bilaterally. There are few benign-appearing microcalcifications in each breast. There is no suspicious lesion and no suspicious microcalcifications. There are fatty replaced nodes in both axilla. IMPRESSION: Fibrofatty parenchyma with no suspicious lesions seen BI-RAD Category: 2 Benign Finding(s) FOLLOW-UP: 1YR 1 Year Follow-up (A letter has been sent to the patient regarding results of the study.) Dictated by: Dr. Addison Wood MD 01/29/2019 10:[address] Addison Wood MD in [place] 01/29/2019 10:28
== END ==
PROVIDERS: PCP Family Medicine; Visit Provider Nurse Practitioner Obstetrics & Gynecology
DX: Z12.31 Encounter for screening mammogram for malignant neoplasm of breast (principal)
CPT/HCPCS: 77067

== ENCOUNTER → 2019-09-15 10:26 | Outpatient (CLI) | payer MEDICARE, MEDICAID, SELFPAY ==
[2019-09-15 11:53] LABS: Free T4 (Free Thyroxine) 2.05 ng/dl (0.78-2.19)
[2019-09-15 12:08] LABS: Thyroid Stimulating Hormone 0.12 uIU/mL (0.465-4.68)
== END ==
PROVIDERS: Visit Provider Otolaryngology
DX: E06.3 Autoimmune thyroiditis (principal)
CPT/HCPCS: 36415; 84439; 84443

== ENCOUNTER → 2019-10-12 08:17 | Outpatient (CLI) | payer MEDICARE, MEDICAID, SELFPAY ==
--- NOTE | 2019-10-12 08:19 | CA_ITS ---
APPROVED REPORT Corporate Security Officer: MAGDY Laterality: Bilateral Study Quality: Good Indications: bilateral carotid bruit,HTN,HLP Doppler Spectral Velocity Analysis dICA (R) 75.60/24.90 cm/s dICA (L) 66.60/19.30 cm/s Luis (R) 101.60/24.80 cm/s Luis (L) 63.40/17.80 cm/s pICA (R) 64.40/19.90 cm/s pICA (L) 50.50/14.20 cm/s dCCA (R) 64.30/16.20 cm/s dCCA (L) 63.10/13.80 cm/s pCCA (R) 58.60/6.00 cm/s pCCA (L) 71.50/12.30 cm/s Vert (R) 57.30/12.50 cm/s Vert (L) 65.20/13.70 cm/s ICA/CCA 1.60 ICA/CCA 1.10 Findings Duplex evaluation demonstrates stenosis of the right proximal internal carotid artery <20% with PSV <140 cm/sec, EDV <100 cm/sec, and IC/CC Ratio <4.0.Duplex evaluation demonstrates stenosis of the left proximal internal carotid artery <20% with PSV <140 cm/sec, EDV <100 cm/sec, and IC/CC Ratio <4.0.Antegrade flow seen bilateral vertebral arteries. Conclusion No increased velocities to suggest hemodynamically significant stenosis in either internal carotid artery. Electronically signed by : Davis Norton MD 10/12/2019 17:18:38
== END ==
PROVIDERS: PCP Family Medicine; Visit Provider Internal Medicine Cardiovascular Disease
DX: R09.89 Other specified symptoms and signs involving the circulatory and respiratory systems (principal)
CPT/HCPCS: 93880

== ENCOUNTER → 2019-10-12 08:56 | Outpatient (CLI) | payer MEDICARE, MEDICAID, SELFPAY ==
[2019-10-12 09:49] LABS: Alanine Aminotransferase 6 U/L (12-78); Albumin Level 4.1 g/dl (3.5-5.0); Alkaline Phosphatase 65 U/L (38-126); Anion Gap 14.4 mEq/L (5-15); Aspartate Amino Transferase 22 U/L (14-36); Bilirubin,Direct 0.1 mg/dl (0.0-0.4); Bilirubin,Indirect 0.2 mg/dL (0.0-0.9); Bilirubin,Total 0.3 mg/dl (0.2-1.3); Bilirubin,Unconjugated 0.2 mg/dL (0.0-1.1); Blood Urea Nitrogen 33 mg/dl (7-17); Calcium 9.9 mg/dl (8.4-10.2); Carbon Dioxide 27 mmol/L (22.0-30.0); Chloride 103 mmol/L (98-107); Chol/HDL Ratio 2.8 (1-3.5); Cholesterol 141 mg/dl (140-200); Estimated Glomerular Filt Rate 32 ml/min (>60); GFR (African American) 38 ML/MIN (>60); Glucose 135 mg/dl (74-100); HDL Cholesterol 50 mg/dl (40-60); Potassium 4.4 mmoL/L (3.5-5.1); Sodium 140 mmol/L (136-145); Total Protein,Serum 6.9 g/dl (6.3-8.2); Triglycerides 87 mg/dl (30-150); VLDL Cholesterol 17 mg/dL (0-40)
[2019-10-12 09:57] LABS: NT Pro Brain Natriuretic Pep. 615 pg/mL (0-125)
[2019-10-12 10:01] LABS: Direct LDL Cholesterol 68.44 mg/dL (100-129)
== END ==
PROVIDERS: Visit Provider Internal Medicine Cardiovascular Disease
DX: R09.89 Other specified symptoms and signs involving the circulatory and respiratory systems (principal); E78.5 Hyperlipidemia, unspecified; R06.00 Dyspnea, unspecified
CPT/HCPCS: 36415; 80048; 80061; 80076; 83880; 93880

== ENCOUNTER → 2019-10-18 09:09 | Outpatient (CLI) | payer MEDICARE, MEDICAID, SELFPAY ==
--- NOTE | 2019-10-18 09:14 | XR_ITS ---
PROCEDURE: XR LUMBAR SPINE MIN 4V CLINICAL INDICATION: LOW BACK PAIN, COMPARISON: CR [id number] LUMBAR SPINE-2 TO 3 VIEWS from 06/02/2013 FINDINGS: No fracture or dislocation. No lytic or blastic change. There is normal mineralization. There is normal alignment. There is mild degenerative disc disease from L1-S1. Facet hypertrophic changes present at L3-L4 L5 and S1. There is mild sclerosis of SI joints. No compression fractures apparent. IMPRESSION: Degenerative changes, no acute finding Dictated b Davis Norton MD 10/18/2019 14:22 Davis Norton MD in [place] 10/18/2019 14:22
== END ==
PROVIDERS: PCP Family Medicine; Visit Provider Family Medicine
DX: M54.5 Low back pain (principal)
CPT/HCPCS: 72110

== ENCOUNTER → 2019-11-09 10:15 | Outpatient (CLI) | payer MEDICARE, MEDICAID, SELFPAY ==
[2019-11-09 11:18] LABS: Anion Gap 13.8 mEq/L (5-15); Blood Urea Nitrogen 55 mg/dl (7-17); Calcium 9.7 mg/dl (8.4-10.2); Carbon Dioxide 29 mmol/L (22.0-30.0); Chloride 100 mmol/L (98-107); Estimated Glomerular Filt Rate 17 ml/min (>60); GFR (African American) 21 ML/MIN (>60); Glucose 117 mg/dl (74-100); Potassium 4.8 mmoL/L (3.5-5.1); Sodium 138 mmol/L (136-145)
[2019-11-09 11:25] LABS: NT Pro Brain Natriuretic Pep. 496 pg/mL (0-125)
== END ==
PROVIDERS: Visit Provider Internal Medicine Cardiovascular Disease
DX: R06.00 Dyspnea, unspecified; E11.9 Type 2 diabetes mellitus without complications; N18.3 Chronic kidney disease, stage 3 (moderate); N28.9 Disorder of kidney and ureter, unspecified; R60.9 Edema, unspecified; R94.31 Abnormal electrocardiogram [ECG] [EKG]; Z79.84 Long term (current) use of oral hypoglycemic drugs
CPT/HCPCS: 36415; 80048; 83880

== ENCOUNTER → 2019-11-16 11:35 | Outpatient (CLI) | payer MEDICARE, MEDICAID, SELFPAY ==
[2019-11-16 12:46] LABS: Anion Gap 16.1 mEq/L (5-15); Blood Urea Nitrogen 54 mg/dl (7-17); Carbon Dioxide 28 mmol/L (22.0-30.0); Chloride 100 mmol/L (98-107); Estimated Glomerular Filt Rate 22 ml/min (>60); GFR (African American) 27 ML/MIN (>60); Glucose 125 mg/dl (74-100); Potassium 5.1 mmoL/L (3.5-5.1); Sodium 139 mmol/L (136-145)
== END ==
PROVIDERS: Visit Provider Internal Medicine Cardiovascular Disease
DX: R06.00 Dyspnea, unspecified (principal); E11.9 Type 2 diabetes mellitus without complications; I10 Essential (primary) hypertension; I51.89 Other ill-defined heart diseases; N18.3 Chronic kidney disease, stage 3 (moderate); N28.9 Disorder of kidney and ureter, unspecified; R60.9 Edema, unspecified; R94.31 Abnormal electrocardiogram [ECG] [EKG]
CPT/HCPCS: 36415; 80048

== ENCOUNTER → 2019-11-23 10:06 | Outpatient (CLI) | payer MEDICARE, MEDICAID, SELFPAY ==
[2019-11-23 11:18] LABS: Anion Gap 16.1 mEq/L (5-15); Blood Urea Nitrogen 45 mg/dl (7-17); Calcium 9.3 mg/dl (8.4-10.2); Carbon Dioxide 27 mmol/L (22.0-30.0); Chloride 102 mmol/L (98-107); Estimated Glomerular Filt Rate 23 ml/min (>60); GFR (African American) 28 ML/MIN (>60); Glucose 121 mg/dl (74-100); Potassium 5.1 mmoL/L (3.5-5.1); Sodium 140 mmol/L (136-145)
== END ==
PROVIDERS: Visit Provider Internal Medicine Cardiovascular Disease
DX: R06.00 Dyspnea, unspecified; R94.31 Abnormal electrocardiogram [ECG] [EKG]; E11.9 Type 2 diabetes mellitus without complications; N18.3 Chronic kidney disease, stage 3 (moderate); N28.9 Disorder of kidney and ureter, unspecified; R60.9 Edema, unspecified; Z79.84 Long term (current) use of oral hypoglycemic drugs
CPT/HCPCS: 36415; 80048

== ENCOUNTER → 2019-12-21 09:49 | Outpatient (CLI) | payer MEDICARE, MEDICAID, SELFPAY ==
[2019-12-21 11:41] LABS: Blood Urea Nitrogen 41 mg/dl (7-17); Calcium 9.3 mg/dl (8.4-10.2); Carbon Dioxide 26 mmol/L (22.0-30.0); Chloride 106 mmol/L (98-107); Estimated Glomerular Filt Rate 24 ml/min (>60); GFR (African American) 30 ML/MIN (>60); Glucose 110 mg/dl (74-100); Sodium 141 mmol/L (136-145)
== END ==
PROVIDERS: Visit Provider Nurse Practitioner Family
DX: E78.5 Hyperlipidemia, unspecified (principal); I10 Essential (primary) hypertension; I11.9 Hypertensive heart disease without heart failure; I25.10 Atherosclerotic heart disease of native coronary artery without angina pectoris; R06.00 Dyspnea, unspecified; R09.89 Other specified symptoms and signs involving the circulatory and respiratory systems; R60.9 Edema, unspecified; R94.31 Abnormal electrocardiogram [ECG] [EKG]
CPT/HCPCS: 36415; 80048

== ENCOUNTER → 2020-01-30 10:35 | Outpatient (CLI) | payer MEDICARE, MEDICAID, SELFPAY ==
--- NOTE | 2020-01-30 10:38 | MM_ITS ---
PROCEDURE: MM DIG SCREENING MAMM BI W/CAD Referring Doctor: Emmanuelle Hackett Patient Age:74Y CLINICAL INDICATION: SCREENING routine screening. No new complaints. No hormones. . Hysterectomy 1992 noted. Family history: Maternal aunt breast cancer but COMPARISON: MG DMSB DIG MAMM-SCREEN ROB from 12/25/2013 MG DMSB DIG MAMM-SCREEN ROB from 12/31/2015 MG DMDXUAVL DIG MAMM-DX UNI ADD VIEWS-LT from 01/17/2016 MG DMSB DIG MAMM-SCREEN ROB W/CAD from 12/24/2016 MG MM DIG SCREENING MAMM BI W/CAD from 01/27/2019 TECHNIQUE: Standard CC and MLO images were obtained. R2 CAD reviewed. Bilateral digital breast tomosynthesis included. FINDINGS: Buhf-bh-dagldyss residual fibroglandular elements. No dominant or suspicious mass. No suspicious new calcifications Right breast no new areas of significant concern Grouping of dense round dermal calcifications medial breast have been seen previously and unchanged left breast: No new areas of concern. Left breast stable appearance with no new areas of concern. Minor areas of asymmetric density appears similar to last year and previous studies IMPRESSION: Stable bilateral mammogram. No new areas of concern Bilateral follow-up 1 year BI-RAD Category: 2 Benign Finding(s) FOLLOW-UP: 1YR 1 Year Follow-up (A letter has been sent to the patient regarding results of the study.) Dictated by: Patrick Garcia MD 02/05/2020 11:09 Patrick Garcia MD in [place] 02/05/2020 11:09
== END ==
PROVIDERS: PCP Family Medicine; Visit Provider Family Medicine
DX: Z12.31 Encounter for screening mammogram for malignant neoplasm of breast (principal)
CPT/HCPCS: 77063; 77067

== ENCOUNTER → 2020-03-26 15:02 | Outpatient (CLI) | payer MEDICARE, MEDICAID, SELFPAY ==
--- NOTE | 2020-03-26 15:16 | US_ITS ---
PROCEDURE: US THYROID CLINICAL INDICATION: thyroid neoplasm thryoid removed in 2015 Follow-up thyroid neoplasm COMPARISON: US THY US thyroid from 09/16/2018 FINDINGS: There has been a prior thyroidectomy. No mass or cyst or fluid collection evident within the thyroid bed. IMPRESSION: Prior thyroidectomy otherwise negative Dictated by: Davis Norton MD 03/27/2020 09:24 Davis Norton MD in [place] 03/27/2020 09:24
[2020-03-26 16:45] LABS: Free T4 (Free Thyroxine) 1.76 ng/dl (0.78-2.19)
[2020-03-26 16:59] LABS: Thyroid Stimulating Hormone 1.54 uIU/mL (0.465-4.68)
== END ==
PROVIDERS: PCP Family Medicine; Visit Provider Otolaryngology
DX: E03.9 Hypothyroidism, unspecified (principal)
CPT/HCPCS: 36415; 76536; 84439; 84443

== ENCOUNTER → 2020-08-20 08:47 | Outpatient (CLI) | payer MEDICARE, MEDICAID, SELFPAY ==
--- NOTE | 2020-08-20 08:48 | CA_ITS ---
APPROVED REPORT EXAM: Comprehensive 2D, Doppler, and color-flow Echocardiogram Senior Credit Analyst: Elizabeth Rand, LATASHA, RVS Ht: 5 ft 0 in Wt: 177lbs BSA: 1.77 HR: 83 bpm BP: 140/60 mmHg Rhythm: Irreguar Indications: Bradycardia, DD, CAD 2D Dimensions IVSd 1.02 cm F: 0.6-1.0 LVEF (Visual) 65.40 % PWd 0.89 cm F: 0.6 - 1.0 LA Volume 64.70 mL LVDd 5.36 cm F: 3.9 - 5.3 LA Volume Index 36.55 mL/m2 (M/F) 16-34 LVDs 3.42 cm F: 2.2 - 3.5 Left Atrium 3.34 cm F: 2.7 - 3.8 LVOT 1.77 cm (M/F) 1.5-2.5 M-Mode Dimensions LA Diam 4.16 cm (1.9-4.0) Ao Diam 2.81 cm (2.0-3.7) EPSs 0.97 cm TAPSE 2.29 (<1.7) LV Diastology E Decel Time 273.00 (160-240 msec) E/A Ratio 1.67 MED E' 7.30 (< 7 cm/sec) MED A' 5.70 cm/s E'/MED E' Ratio 20.15 (>14) LAT E' 7.20 (<10 cm/sec) LAT A' 5.70 cm/s E/LAT E' Ratio 20.43 (>14) Aortic Valve LVOT Max 127.00 (70-110 cm/s) LVOT VTI 31.81 cm AoV Peak Сергей. 290.00 (50-130 cm/s) AO Peak GR. 33.60 mmHg AO Mean GR. 18.40 (<5 mmHg) AO VTI 71.70 (18-25 cm) HERBERTH (VTI) 1.09 (2.5-4.5 cm2) Mitral Valve MV A Velocity 88.00 (40-130 cm/s) E/A Ratio 1.67 MV Decel. Time 273.00 (160-240 ms) Pulmonary Valve PV Peak Velocity 76.00 (50-150 cm/s) Tricuspid Valve TR P. Velocity 368.00 cm/s RAP Estimate 10.00 mmHg RVSP 64.00 mmHg Left Ventricle Left atrium is moderately enlarged, left ventricle is normal size, mild concentric left ventricular hypertrophy, visually estimated ejection fraction 55% with no regional wall motion abnormality, grade 2 diastolic dysfunction seen with tissue Doppler evidence of raise left atrial pressure. Right Ventricle Right atrium and right ventricle are mildly enlarged with normal contractility. Aortic Valve Aortic valve is thickened and calcified, mean gradient across valve is 21 mmHg, valve area is 1.2 cm??? represents moderate aortic stenosis, there is no significant aortic insufficiency. Mitral Valve Mitral valve leaflets are minimally thickened, posterior mitral valve leaflet is redundant, there is no mitral stenosis, there is mild mitral regurgitation. Tricuspid Valve Tricuspid grossly normal, there is mild tricuspid regurgitation, calculated right ventricular systolic pressure 64 mmHg. Pulmonic Valve Pulmonic valve is poorly visualized. Great Vessels Aortic root is normal size. Inferior vena cava is mildly dilated with normal inspiratory collapse. Pericardium No significant pericardial effusion noted. Conclusion 1. Biatrial enlargement, normal left ventricular size, mild concentric left ventricular hypertrophy, visually estimated ejection fraction 55% with no regional wall motion abnormality, grade 2 diastolic dysfunction seen with tissue Doppler evidence of raise left atrial pressure. 2. Thickened and calcified aortic valve with moderate aortic stenosis, valve area is 1.2 cm???, there is no significant aortic insufficiency. 3. Mild mitral and tricuspid regurgitation, calculated right ventricular systolic pressure 64 mmHg. 4. No significant pericardial effusion noted. 5. Inferior vena cava is mildly dilated without significant inspiratory collapse. Electronically signed by : Shahab Yarbrough, 08/20/2020 10:25:44
== END ==
PROVIDERS: PCP Family Medicine; Visit Provider Physician Assistant
DX: E78.2 Mixed hyperlipidemia (principal); I11.9 Hypertensive heart disease without heart failure; I25.10 Atherosclerotic heart disease of native coronary artery without angina pectoris; M79.89 Other specified soft tissue disorders; R06.00 Dyspnea, unspecified; R09.89 Other specified symptoms and signs involving the circulatory and respiratory systems
CPT/HCPCS: 93306

== ENCOUNTER → 2020-09-03 10:22 | Outpatient (CLI) | payer MEDICARE, MEDICAID, SELFPAY ==
[2020-09-03 11:05] LABS: Chloride 110 mmol/L (98-107); Potassium 4.9 mmoL/L (3.5-5.1); Sodium 144 mmol/L (136-145)
[2020-09-03 11:08] LABS: Anion Gap 18.9 mEq/L (5-15); Blood Urea Nitrogen 39 mg/dl (7-17); Calcium 9.5 mg/dl (8.4-10.2); Carbon Dioxide 20 mmol/L (22.0-30.0); Estimated Glomerular Filt Rate 21 ml/min (>60); GFR (African American) 25 ML/MIN (>60)
[2020-09-03 11:18] LABS: NT Pro Brain Natriuretic Pep. 659 pg/mL (0-125)
[2020-09-03 11:20] LABS: Glucose 40 mg/dl (74-100)
== END ==
PROVIDERS: Visit Provider Physician Assistant
DX: R06.02 Shortness of breath; R06.00 Dyspnea, unspecified; I25.10 Atherosclerotic heart disease of native coronary artery without angina pectoris; I11.9 Hypertensive heart disease without heart failure; E78.5 Hyperlipidemia, unspecified; M79.89 Other specified soft tissue disorders; R09.89 Other specified symptoms and signs involving the circulatory and respiratory systems
CPT/HCPCS: 80048; 83880

== ENCOUNTER → 2020-09-17 10:10 | Outpatient (CLI) | payer MEDICARE, MEDICAID, SELFPAY ==
[2020-09-17 10:58] LABS: Chloride 110 mmol/L (98-107); Sodium 139 mmol/L (136-145)
[2020-09-17 11:01] LABS: Anion Gap 14.6 mEq/L (5-15); Blood Urea Nitrogen 50 mg/dl (7-17); Carbon Dioxide 21 mmol/L (22.0-30.0); Estimated Glomerular Filt Rate 16 ml/min (>60); GFR (African American) 19 ML/MIN (>60)
[2020-09-17 11:02] LABS: Calcium 9.1 mg/dl (8.4-10.2); Glucose 129 mg/dl (74-100)
[2020-09-17 11:25] LABS: Potassium 6.6 mmoL/L (3.5-5.1)
[2020-09-17 11:27] LABS: NT Pro Brain Natriuretic Pep. 700 pg/mL (0-125)
== END ==
PROVIDERS: Visit Provider Physician Assistant
DX: I51.89 Other ill-defined heart diseases (principal); R06.02 Shortness of breath; Z51.81 Encounter for therapeutic drug level monitoring; Z79.899 Other long term (current) drug therapy; N18.30 Chronic kidney disease, stage 3 unspecified
CPT/HCPCS: 36415; 80048; 83880

== ENCOUNTER → 2020-09-18 10:18 | Outpatient (CLI) | payer MEDICARE, MEDICAID, SELFPAY ==
[2020-09-18 11:26] LABS: Anion Gap 15.2 mEq/L (5-15); Blood Urea Nitrogen 41 mg/dl (7-17); Calcium 8.8 mg/dl (8.4-10.2); Carbon Dioxide 20 mmol/L (22.0-30.0); Chloride 111 mmol/L (98-107); Estimated Glomerular Filt Rate 20 ml/min (>60); GFR (African American) 24 ML/MIN (>60); Glucose 131 mg/dl (74-100); Potassium 5.2 mmoL/L (3.5-5.1); Sodium 141 mmol/L (136-145)
== END ==
PROVIDERS: Visit Provider Physician Assistant
DX: E87.5 Hyperkalemia (principal)
CPT/HCPCS: 36415; 80048

== ENCOUNTER → 2020-10-03 10:18 | Outpatient (CLI) | payer MEDICARE, MEDICAID, SELFPAY ==
[2020-10-03 11:12] LABS: Anion Gap 14.4 mEq/L (5-15); Blood Urea Nitrogen 56 mg/dl (7-17); Calcium 8.3 mg/dl (8.4-10.2); Carbon Dioxide 23 mmol/L (22.0-30.0); Chloride 106 mmol/L (98-107); Estimated Glomerular Filt Rate 23 ml/min (>60); GFR (African American) 28 ML/MIN (>60); Glucose 136 mg/dl (74-100); Potassium 4.4 mmoL/L (3.5-5.1); Sodium 139 mmol/L (136-145)
== END ==
PROVIDERS: Visit Provider Nurse Practitioner Family
DX: E87.5 Hyperkalemia (principal)
CPT/HCPCS: 36415; 80048

== ENCOUNTER → 2020-10-24 10:13 | Outpatient (CLI) | payer MEDICARE, MEDICAID, SELFPAY ==
[2020-10-24 11:18] LABS: Anion Gap 13.3 mEq/L (5-15); Blood Urea Nitrogen 33 mg/dl (7-17); Calcium 8.8 mg/dl (8.4-10.2); Carbon Dioxide 26 mmol/L (22.0-30.0); Chloride 105 mmol/L (98-107); Estimated Glomerular Filt Rate 23 ml/min (>60); GFR (African American) 28 ML/MIN (>60); Glucose 192 mg/dl (74-100); Potassium 4.3 mmoL/L (3.5-5.1); Sodium 140 mmol/L (136-145)
== END ==
PROVIDERS: Visit Provider Internal Medicine Cardiovascular Disease
DX: E78.5 Hyperlipidemia, unspecified (principal); I11.9 Hypertensive heart disease without heart failure; I25.10 Atherosclerotic heart disease of native coronary artery without angina pectoris; I27.20 Pulmonary hypertension, unspecified; I35.0 Nonrheumatic aortic (valve) stenosis; N18.2 Chronic kidney disease, stage 2 (mild); R06.02 Shortness of breath
CPT/HCPCS: 36415; 80048

== ENCOUNTER → 2021-01-21 10:15 | Outpatient (CLI) | payer MEDICARE, MEDICAID, SELFPAY ==
[2021-01-21 11:16] LABS: Anion Gap 12.1 mEq/L (5-15); Blood Urea Nitrogen 25 mg/dl (7-17); Calcium 9.6 mg/dl (8.4-10.2); Carbon Dioxide 28 mmol/L (22.0-30.0); Chloride 103 mmol/L (98-107); Estimated Glomerular Filt Rate 32 ml/min (>60); GFR (African American) 38 ML/MIN (>60); Glucose 156 mg/dl (74-100); Potassium 4.1 mmoL/L (3.5-5.1); Sodium 139 mmol/L (136-145)
== END ==
PROVIDERS: Visit Provider Internal Medicine Cardiovascular Disease
DX: E78.5 Hyperlipidemia, unspecified (principal); I25.10 Atherosclerotic heart disease of native coronary artery without angina pectoris; I51.89 Other ill-defined heart diseases; M79.89 Other specified soft tissue disorders; R06.00 Dyspnea, unspecified; R09.89 Other specified symptoms and signs involving the circulatory and respiratory systems
CPT/HCPCS: 36415; 80048

== ENCOUNTER → 2021-01-28 10:08 | Outpatient (CLI) | payer MEDICARE, MEDICAID, SELFPAY ==
[2021-01-28 11:17] LABS: Chloride 104 mmol/L (98-107); Sodium 139 mmol/L (136-145)
[2021-01-28 11:18] LABS: Potassium 4.4 mmoL/L (3.5-5.1)
[2021-01-28 11:20] LABS: Blood Urea Nitrogen 29 mg/dl (7-17); Estimated Glomerular Filt Rate 24 ml/min (>60); GFR (African American) 30 ML/MIN (>60)
[2021-01-28 11:21] LABS: Anion Gap 10.4 mEq/L (5-15); Calcium 9.5 mg/dl (8.4-10.2); Carbon Dioxide 29 mmol/L (22.0-30.0); Glucose 129 mg/dl (74-100)
== END ==
PROVIDERS: Urology; Visit Provider Internal Medicine Cardiovascular Disease
DX: E78.5 Hyperlipidemia, unspecified (principal); I11.9 Hypertensive heart disease without heart failure; I25.10 Atherosclerotic heart disease of native coronary artery without angina pectoris; I27.20 Pulmonary hypertension, unspecified; I35.0 Nonrheumatic aortic (valve) stenosis; N18.2 Chronic kidney disease, stage 2 (mild); R06.02 Shortness of breath
CPT/HCPCS: 36415; 80048

== ENCOUNTER → 2021-01-29 11:40 | Outpatient (CLI) | payer MEDICARE, MEDICAID, SELFPAY ==
--- NOTE | 2021-01-29 | CA_ITS ---
APPROVED REPORT Exam: Pharmacologic Technologist: Maria C Mercado Ht: 5 ft 0 in Wt: 177 lbs BSA: 1.77 m2 HR: 80 bpm BP: 208/96 mmHg Indications: Shortness of Air Medical History Medications: Amlodipine,,,,, Lisinopril,,,,, Levothyroxine,,,,, Clonidine,,,,, Isosorbide,,,,, Aspirin,,,,, Simvastatin,,,,, Ferrous sulfate,,,,, Pioglitazone,,,,, Glipizide,,,,, MonONITRATE,,,,, Furosemide,,,,, Stress Test Details Test: LEXISCAN HR Resting HR: 82 bpm Max Heart Rate (APMHR): 147 bpm Max HR Achieved: 110 bpm Target HR (85% APMHR): 124 bpm % of APMHR: 74 Recovery HR: 95 bpm BP Resting BP: 208.0/96.0 mmHg Max BP: 215.0/109.0 mmHg Recovery BP: 197.0/97.0 mmHg ECG Resting ECG: Normal sinus rhythm, PVCs, T wave abnormalities inferiorly and in V6. Clinical Exercise duration: 04:14 min Highest Stage Achieved: Stress ECG Conclusion Symptoms: Shortness of air, malaise, fuzzy headed. No chest pain. Arrhythmias/Ectopy: Occasional PAC, PVC ST-T Changes: No significant changes. Conclusion: Unremarkable Lexiscan stress. Hypertension. Myoview images reported separately. Electronically signed by : Shahab Yarbrough MD 01/29/2021 20:08:37
--- NOTE | 2021-01-29 11:44 | NM_ITS ---
APPROVED REPORT Exam: Nuclear Stress Test Indication: SOB, HTN, DM, High cholesterol, Family history Patient Location: Outpatient Stress Tech: Maria C Mercado [place] Tech:Renetta Baker, ARRT, RT (R)(N) Ht: 5 ft 0 in Wt: 177 lbs Bra Size: 32D HR: 82 bpm BP: 208/96 mmHg BSA: 1.77 m2 History: SOB, HTN, DM, High cholesterol, Family history Procedure: Patient received a 0.4 mg of intravenous Lexiscan, resting heart rate 82 bpm, resting blood pressure 208/96 mmHg, with Lexiscan maximum heart rate achived was 110 bpm which is Less than 85 % of the maximum predicted heart rate and blood pressure was 215/109 mmHg. With Lexiscan, patient denied any complaint of chest pain. Electrocardiogram Resting electrocardiogram showed sinus rhythm, with Lexiscan there is less than 1.[address] segment depression noted from the baseline EKG. The EKG portion of the Lexiscan is nondiagnostic. Cardiac Stress and Resting SPECT Images: Cardiac Stress and Resting SPECT images were obtained using technetium 99m Myoview 31.1 mCi stress and 10.17 mCi at rest. Gated SPECT for analysis of segmental wall motion and calculation of the ejection fraction also done. Cardiac stress and resting SPECT images show uniform myocardial activity without segmental perfusion abnormality, computer derived ejection fraction is 45% with no regional wall motion abnormality, right ventricle is normal size and contractility. Conclusion: 1. The EKG portion of the Lexiscan Myoview is nondiagnostic. 2. No scintigraphic evidence of reversible ischemia seen, computer derived ejection fraction is 45% with no regional wall motion abnormality, right ventricle is normal size and contractility. 3. Normal Lexiscan Myoview study. Electronically signed by : Shahab Yarbrough MD 01/29/2021 21:57:22
--- NOTE | 2021-01-29 13:44 | HMH.ITSHM ---
Current Home Medications as stated by this patient Carol Cazares or maintenance representative. []SIMVASTATIN [PIOGLITAZONE LISINOPRIL LEVOTHYROXINE ISOSORBIDE GLIPIZIDE FUROSEMIDE IRON CLONIDINE AMLODIPINE ASA
== END ==
PROVIDERS: PCP Family Medicine; Visit Provider Urology
DX: R06.02 Shortness of breath; E78.5 Hyperlipidemia, unspecified; I10 Essential (primary) hypertension; I11.9 Hypertensive heart disease without heart failure; I25.10 Atherosclerotic heart disease of native coronary artery without angina pectoris; I27.20 Pulmonary hypertension, unspecified; I35.0 Nonrheumatic aortic (valve) stenosis; N18.2 Chronic kidney disease, stage 2 (mild)
CPT/HCPCS: 78452; 93017; A9502; J2785

== ENCOUNTER 2021-01-29 15:17 | Emergency (ER) | payer MEDICARE, MEDICAID, SELFPAY ==
[2021-01-29] VITALS (26 sets, daily range): BP systolic 129–236; BP diastolic 74–151; PULSE 67–156; RESP 16–23; TEMP 35.4; O2SAT 80–99; BMI 36.6
--- NOTE | 2021-01-29 15:19 | PC.NURSE ---
pt to ed per wheelchair for eval due to c/o sob during stress test. pt would not answer questions, pt assisted to stretcher with 3 staff. while placing pt on vehicle monitor technician she became apneic pulseless cpr started.
--- NOTE | 2021-01-29 15:20 | PC.NURSE ---
cpr started. pt bagged with bvm.
--- NOTE | 2021-01-29 15:22 | PC.NURSE ---
pulse check.no pulse cpr resumed
--- NOTE | 2021-01-29 15:25 | PC.NURSE ---
+pulse. pt apneic continued with assist with bvm
--- NOTE | 2021-01-29 15:30 | PC.NURSE ---
pt intubated per dr drummond with #7.5 ettube at 22corner of mouth. checked with +breath sounds mao. +color change,
--- NOTE | 2021-01-29 15:34 | ECG_ITS ---
APPROVED REPORT Exam: Resting ECG HR:164 bpm ECG Measurements Heart Rate 164 AXES NE 152 P 89 QRSd 100 QRS 18 QT 280 T 168 QTc 462 Conclusion Sinus tachycardia with premature atrial complexes Septal infarct, age undetermined ST & T wave abnormality, consider lateral ischemia Abnormal ECG Electronically signed by : Estuardo Bass MD 01/31/2021 12:13:31
--- NOTE | 2021-01-29 15:39 | PC.NURSE ---
PT Daughter was called
--- NOTE | 2021-01-29 15:51 | XR_ITS ---
PROCEDURE: XR CHEST PORTABLE CLINICAL HISTORY: resp failure, ETT position COMPARISON: CR CXR CHEST(2 VIEWS-NOT PORTABLE) from 01/19/2013 CR CXR2V XR chest 2V from 12/22/2017 FINDINGS: Endotracheal tube is in good position 3 cm above the rabia. A tubular density is noted coming from the abdomen area centrally projecting over the mid aspect and upper aspect of the heart and may represent a femoral venous line with the tip in the pulmonary outflow tract region. Overlying artifact is present from multiple leads and patient's garment. There is near complete whiteout of the right lung with some sparing in the apex and in the lung base. Increased density also present in the left midlung. No evidence of pneumothorax. No acute bony findings. IMPRESSION: Good position of endotracheal tube. Diffuse consolidation of the right lung and left perihilar region. Diffuse bilateral pneumonia is considered. Asymmetric pulmonary edema or pulmonary hemorrhage included in the differential diagnosis. Dictated by: Davis Norton MD 01/29/2021 16:04 Davis Norton MD in [place] 01/29/2021 16:04
--- NOTE | 2021-01-29 15:52 | CT_ITS ---
PROCEDURE INFORMATION: Exam: CT Head Without Contrast Exam date and time: 01/29/2021 3:52 PM Age: 75 years old Clinical indication: Altered mental status/memory loss; Additional info: AMS TECHNIQUE: Imaging protocol: Computed tomography of the head without contrast. Radiation optimization: All CT scans at this facility use at least one of these dose optimization techniques: automated exposure control; mA and/or kV adjustment per patient size (includes targeted exams where dose is matched to clinical indication); or iterative reconstruction. Other technique: STROKE PROTOCOL was implemented. COMPARISON: HEADWO CT head/brain wo con 12/23/2017 12:16 AM FINDINGS: Brain: Age related brain involution is present. No acute intracranial hemorrhage, mass effect, midline shift, or brain herniation. Diffuse subcortical and periventricular white matter hypodensities are most in favor with chronic small vessel disease. Cerebral ventricles: There is ex vacuo ventriculomegaly. Paranasal sinuses: Visualized sinuses are unremarkable. No fluid levels. Mastoid air cells: Visualized mastoid air cells are well aerated. Orbital cavity: Bilateral exophthalmos. Orbits are otherwise unremarkable. Bones/joints: Unremarkable. No acute fracture. Soft tissues: Unremarkable. IMPRESSION: 1. Negative for acute intracranial pathology. 2. Incidental findings as detailed above. ASSESSMENT: ASPECTS ([place] Stroke Program Early CT Score) is 10. COMMENTS: Consider correlation with stroke protocol brain MRI if clinically warranted.
--- NOTE | 2021-01-29 15:56 | HMH.EDGENADL ---
ED Disposition Clinical Impression: Cardiac arrest with pulseless electrical activity, Tachycardia, Hypertensive emergency Respiratory failure with hypoxia Qualifiers: Chronicity: acute Qualified Code(s): J96.01 - Acute respiratory failure with hypoxia Pulmonary edema Qualifiers: Chronicity: acute Qualified Code(s): J81.0 - Acute pulmonary edema Disposition: Xfer Short-Term Hosp Condition on Discharge: Critical - Critical Care Critical Care Time: Yes Attestation: On 01/29/21, the high probability of a clinically significant, sudden or life threatening deterioration of the following system(s) required my full and direct attention, intervention and personal management. The time I documented below is in addition to time spent performing reported procedures but includes the following listed in this critical care notation. Total Critical Care Time: 60 Vital system(s) involved:: Circulatory Failure, Respiratory Failure My critical care processes included: Assessment & monitoring of V/S, Initial and Re-exams, Data Review/Interpretation, Coordinating Care, Medication Orders and management, Documentation Medical Decision Making - Marek Inquiry Pt receiving controlled substance: No Vital Signs: 01/29/21 15:30 01/29/21 15:46 01/29/21 15:53 Pulse Rate 140 H 144 H 148 H Respiratory Rate 18 18 Blood Pressure 220/115 H 236/151 H 222/150 H Blood Pressure Mean 162 171 Blood Pressure Position Sitting 02 Sat by Pulse Oximetry 85 L 87 L Oxygen Delivery Method Mechanical Ventilation 01/29/21 16:00 01/29/21 16:01 01/29/21 16:06 Pulse Rate 75 156 H Respiratory Rate 18 18 22 Blood Pressure 218/144 H 213/142 H Blood Pressure Mean 177 165 Blood Pressure Position 02 Sat by Pulse Oximetry 86 L 92 L 92 L Oxygen Delivery Method Mechanical Ventilation 01/29/21 16:09 01/29/21 16:12 01/29/21 16:16 Pulse Rate 142 H 67 124 H Respiratory Rate 23 18 18 Blood Pressure 129/74 168/93 H 196/106 H Blood Pressure Mean 92 106 128 Blood Pressure Position 02 Sat by Pulse Oximetry 92 L 99 96 Oxygen Delivery Method 01/29/21 16:21 01/29/21 16:26 01/29/21 16:31 Pulse Rate 128 H 136 H 116 H Respiratory Rate 18 18 22 Blood Pressure 185/117 H 196/113 H 187/107 H Blood Pressure Mean 134 140 133 Blood Pressure Position 02 Sat by Pulse Oximetry 90 L 87 L 87 L Oxygen Delivery Method 01/29/21 16:36 01/29/21 16:40 01/29/21 16:46 Pulse Rate 97 H 154 H Respiratory Rate 22 18 Blood Pressure 194/109 H 186/110 H 202/103 H Blood Pressure Mean 140 135 136 Blood Pressure Position 02 Sat by Pulse Oximetry 84 L 95 Oxygen Delivery Method Mechanical Ventilation Mechanical Ventilation 01/29/21 17:06 01/29/21 17:13 01/29/21 17:16 Pulse Rate 78 126 H 120 H Respiratory Rate 16 18 16 Blood Pressure 203/114 H 204/106 H 197/105 H Blood Pressure Mean 144 140 137 Blood Pressure Position 02 Sat by Pulse Oximetry 95 85 L 88 L Oxygen Delivery Method Mechanical Ventilation Mechanical Ventilation Mechanical Ventilation 01/29/21 17:40 01/29/21 17:56 01/29/21 18:07 Pulse Rate 117 H 154 H 123 H Respiratory Rate Blood Pressure 200/117 H 171/120 H 174/102 H Blood Pressure Mean Blood Pressure Position Sitting Sitting Sitting 02 Sat by Pulse Oximetry 80 L 80 L Oxygen Delivery Method 01/29/21 18:15 01/29/21 18:20 01/29/21 18:50 Pulse Rate 110 H 128 H 118 H Respiratory Rate Blood Pressure 168/97 H 172/112 H 151/90 H Blood Pressure Mean Blood Pressure Position Sitting Sitting Sitting 02 Sat by Pulse Oximetry Oxygen Delivery Method 01/29/21 20:01 Pulse Rate Respiratory Rate 20 Blood Pressure Blood Pressure Mean Blood Pressure Position 02 Sat by Pulse Oximetry 97 Oxygen Delivery Method - Lab Data Lab Results 01/29/21 15:47: WBC 11.5 H, RBC 3.67 L, Hgb 11.8 L, Hct 38.3, MCV 104.4 H, MCH 32.0 H, MCHC 30.7 L, RDW 14.9, Plt Count 305, MPV 8.7, Neut % (Auto) 52.4, Lymph
--- NOTE | 2021-01-29 16:00 | PC.NURSE ---
family at bedside
[2021-01-29 16:02] LABS: Basophils # 0.1 K/mm3 (0-0.2); Eosinophils # 0.2 K/mm3 (0.0-0.4); Eosinophils % 1.9 % (0.1-12.0); Hematocrit 38.3 % (37.0-47.0); Hemoglobin 11.8 g/dL (12.2-16.2); Lymphocytes # 4.7 K/mm3 (0.7-4.5); Lymphocytes % 41.1 % (10-50); Mean Corpuscular HGB Conc 30.7 g/dL (31.8-35.4); Mean Corpuscular Volume 104.4 fl (81-99); Mean Platelet Volume 8.7 fl (7.4-10.4); Monocytes # 0.4 K/mm3 (0.1-1.0); Monocytes % 3.7 % (1.7-9.3); Neutrophils % 52.4 % (37.0-80.0); Platelet Count 305 K/mm3 (142-424); Red Blood Count 3.67 M/mm3 (4.20-5.40); Red Cell Distribution Width 14.9 % (11.5-17.5); White Blood Count 11.5 K/mm3 (4.8-10.8)
[2021-01-29 16:08] LABS: Alanine Aminotransferase 16 U/L (12-78); Albumin Level 4.3 g/dl (3.5-5.0); Albumin/Globulin Ratio 1.3 (1.1-1.8); Alkaline Phosphatase 63 U/L (38-126); Anion Gap 22.2 mEq/L (5-15); Aspartate Amino Transferase 40 U/L (14-36); Bilirubin,Total 0.4 mg/dl (0.2-1.3); Blood Urea Nitrogen 23 mg/dl (7-17); Calcium 9.2 mg/dl (8.4-10.2); Carbon Dioxide 17 mmol/L (22.0-30.0); Chloride 106 mmol/L (98-107); Estimated Glomerular Filt Rate 26 ml/min (>60); GFR (African American) 31 ML/MIN (>60); Globulin 3.2 g/dL (1.3-3.2); Glucose 244 mg/dl (74-100); Potassium 3.2 mmoL/L (3.5-5.1); Sodium 142 mmol/L (136-145); Total Protein,Serum 7.5 g/dl (6.3-8.2)
--- NOTE | 2021-01-29 16:13 | ECG_ITS ---
APPROVED REPORT Exam: Resting ECG HR:135 bpm ECG Measurements Heart Rate 135 AXES DC 176 P 67 QRSd 98 QRS 19 QT 300 T 135 QTc 450 Conclusion Sinus tachycardia with fusion complexes Septal infarct, age undetermined ST & T wave abnormality, consider lateral ischemia Abnormal ECG Electronically signed by : Estuardo Bass MD 01/31/2021 12:13:24
--- NOTE | 2021-01-29 16:16 | PC.NURSE ---
Dr Anthony spoke with Dr hirsch
[2021-01-29 16:18] LABS: NT Pro Brain Natriuretic Pep. 1350 pg/mL (0-125)
[2021-01-29 16:19] LABS: Coronavirus 19, PCR Not Detected (NotDetected); Influenza A, PCR Not Detected (NotDetected); Influenza B, PCR Not Detected (NotDetected)
[2021-01-29 16:20] LABS: Troponin I 0.03 ng/ml (0.00-0.034)
--- NOTE | 2021-01-29 16:28 | ECG_ITS ---
APPROVED REPORT Exam: Resting ECG HR:111 bpm ECG Measurements Heart Rate 111 AXES MI 194 P 69 QRSd 104 QRS 10 QT 332 T 114 QTc 451 Conclusion Sinus tachycardia with blocked premature atrial complexes with occasional premature ventricular complexes with junctional escape complexes Septal infarct, age undetermined ST & T wave abnormality, consider lateral ischemia Abnormal ECG Electronically signed by : Estuardo Bass MD 01/31/2021 12:13:16
[2021-01-29 16:51] LABS: Microscopic, Urine URINE MICROSCOPIC (MICROSCOPIC)
[2021-01-29 16:56] LABS: Appearance,Urine CLEAR (Clear); Bilirubin,Urine Negative (Negative); Blood, Urine 1+ (Negative); Color,Urine YELLOW (Yellow); Glucose,Urine (UA) 1+ (Negative); Ketones,Urine Negative (Negative); Leukocyte Esterase,Urine Negative (Negative); Nitrate,Urine Negative (Negative); PH,Urine 6.5 (5.0-8.5); Protein,Urine 2+ (Negative); Urobilinogen,Urine 0.2 EU/dl (0.2)
[2021-01-29 17:00] LABS: ABG Base Excess -14.4 mmol/L (-2.4-2.3); ABG HCO3 13.9 mmhg (22.0-26.0); ABG Oxygen Saturation 78 % (90-100); ABG PCO2 37.1 mmhg (35.0-45.0); ABG PO2 50.7 mmhg (80-100)
--- NOTE | 2021-01-29 17:23 | PC.NURSE ---
Dr Zabala speaking to Dr Thomas
[2021-01-29 17:24] LABS: Bacteria,Urine Trace /lpf
--- NOTE | 2021-01-29 17:24 | XR_ITS ---
PROCEDURE INFORMATION: Exam: XR Chest Exam date and time: 01/29/2021 5:24 PM Age: 75 years old Clinical indication: Other: Dropping 02; Additional info: Dropping o2 sat TECHNIQUE: Imaging protocol: XR of the chest. Views: 1 view. COMPARISON: CR XR CHEST PORTABLE 01/29/2021 3:52 PM FINDINGS: Tubes, catheters and devices: Endotracheal tube located 2.6 cm above the rabia. Lungs: Diffuse bilateral airspace consolidation. This process appears to have worsened slightly on the left compared to the prior examination with slight improvement at the right lung apex. Pleural spaces: Unremarkable. No pleural effusion. No pneumothorax. Heart/Mediastinum: Unremarkable. No cardiomegaly. Bones/joints: Unremarkable. IMPRESSION: Bilateral pneumonia as described.
[2021-01-29 17:44] LABS: ABG PH 7.19 mmol/L (7.35-7.45); Allen's Test Patient Unable; Oxygen 100% %; PEEP 5; Source Right Radial; Tidal Volume 400; Vent Rate 18
[2021-01-29 18:20] LABS: Triiodothryronine (T3) Uptake 31 % (23.5-40.5)
[2021-01-29 18:21] LABS: Free Thyroxine Index 3.9 ug/dL (5.93-13.13); T4 (Thyroxine) 12.6 ug/dl (5.53-11.0)
[2021-01-29 18:34] LABS: Thyroid Stimulating Hormone 3.69 uIU/mL (0.465-4.68)
--- NOTE | 2021-01-29 18:55 | PC.NURSE ---
Dr Thomas called requesting try to transfer pt.
--- NOTE | 2021-01-29 18:55 | PC.NURSE ---
calling [facility] for icu unit transfer
--- NOTE | 2021-01-29 19:01 | PC.NURSE ---
Dr Anthony speaking with [facility]
--- NOTE | 2021-01-29 19:18 | PC.NURSE ---
daughter updated on plan of care
--- NOTE | 2021-01-29 19:43 | PC.NURSE ---
called [facility] [phone], pt placed on waiting list at this time.
--- NOTE | 2021-01-29 19:45 | PC.NURSE ---
Called [facility]. [phone]. Pt placed on waiting list and waiting for call back.
--- NOTE | 2021-01-29 20:00 | PC.NURSE ---
Dr. Anthony speaking to Dr. Escalera at [facility].
--- NOTE | 2021-01-29 20:20 | PC.NURSE ---
pt [facility] [address] CCU bed 4.
[2021-01-29 20:58] LABS: Troponin I 0.26 ng/ml (0.00-0.034)
--- NOTE | 2021-01-29 21:10 | HMH.PHAVTE ---
[facility] Pharmacy VTE Monitoring - Patient Demographics Admission date: 01/29/21 Report Date: 01/29/21 Time: 21:10 Allergies/Adverse Reactions: Patient Allergies No Known Allergies Allergy (Verified 01/23/21 08:50) Height: 1.57 m Weight: 90.718 kg Patient Problems: Current Active Problems Respiratory failure with hypoxia (Acute) Cardiac arrest with pulseless electrical activity (Acute) Tachycardia (Acute) Pulmonary edema (Acute) Hypertensive emergency (Acute) - VTE Risk Labs: VTE Related Lab Results Hgb 11.8 g/dL (12.2-16.2) L 01/29/21 15:47 Hct 38.3 % (37.0-47.0) 01/29/21 15:47 Plt Count 305 K/mm3 (142-424) 01/29/21 15:47 BUN 23 mg/dl (7-17) H 01/29/21 15:47 Creatinine 1.90 mg/dl (0.52-1.04) H 01/29/21 15:47 Clinical Trial Participant: No - Prophylaxis VTE Prophylaxis Ordered?: Yes Types of VTE Prophylaxis: TEDS Knee High
--- NOTE | 2021-01-29 21:18 | HMH.PHAINT ---
home medication list verified using list from [facility]
--- NOTE | 2021-01-29 21:18 | PC.NURSE ---
[facility] [employer] has arrived, RN's at bedside given report.
[2021-02-03 08:50] LABS: Sodium Arterial 136 mmol/L (137-145)
[2021-02-03 08:51] LABS: Chloride, Arterial 106 mmol/L (98-107); Potassium, Arterial 2.4 mmoL/L (3.5-5.1)
[2021-02-03 08:52] LABS: Lactate Arterial 4.6 mmol/L (0.4-2.0); Reflex Lactic Add Lactic Reflex
--- NOTE | 2021-02-03 15:07 | HMH.CARDCON2 ---
History of Present Illness Consult date: 01/29/21 Requesting physician: Edison Anthony Chief complaint: HTN History of present illness: This is a 75 year old female who presented to the ER from the stress test room for HTN. The patient was hypertensive during the stress rest and when she had to lay prone for the second set of images she was having trouble breathing. she was complaining of severe SOB. she became less responsive and was brought to the ER. When brought to the ER she was awake but not verbally responsive. when trying to transfer her from WC to bed in the ER she became unresponsive, pulseless and apneic. CPR was started. PT had PEA. Pt then appeared to be in afib with tachycardia. pt was frothing from the mouth consistent with pulmonary edema. pt was then intubated and put on mechanical ventilation. pt remained very hypertensive. Review of Systems - Review of Systems Review of systems:: pertinent systems reviewed and negative unless documented below - *Cardiovascular Reports shortness of breath, Reports shortness of breath with activity, Denies chest pain, Denies chest pain at rest, Denies chest pain with activity - *Respiratory Reports shortness of breath, Reports shortness of breath with activity [facility] History I have reviewed the patient's past medical history: Yes Medical History: Reports:: Atherosclerotic Heart Disease, Coronary Artery Disease, Diabetes Mellitus Type 2, Hyperlipidemia, Hypertension Denies:: Cancer, Internal Pacemaker, MRSA, Seizures *Have you ever received a pneumonia vaccine?: No *Have you received a flu vaccine this season?: Yes Other Medical History: Reports: Anemia, Arthritis, Thyroid Disease Laterality Cases: Bilateral: Other Other Surgeries: Yes: Cardiac Catheterization, Colonoscopy, Colostomy, Hysterectomy-Total, Thyroidectomy. No: Pacemaker Amputation: No Fractures: No - *Social History Smoking Status: Never smoker Alcohol Intake: never Substance Use Type: denies use *Occupational Status:: retired Housing: house *Travel in the last 8 weeks: None Family Hx:: Cancer, Heart Attack, Hyperlipidemia, Hypertension Meds Home Medications Medication Instructions Recorded Confirmed Type Aspirin [Aspir 81] 81 mg PO DAILY 06/13/17 01/29/21 History pioglitazone 45 mg tablet 45 mg PO DAILY 12/29/18 01/29/21 History glipizide 10 mg tablet, extended 10 mg PO BID tab 03/23/19 01/29/21 History release 24 hr ferrous sulfate 325 mg (65 mg 325 mg PO DAILY tab 10/05/19 01/29/21 History iron) tablet isosorbide mononitrate 60 mg 90 mg PO DAILY tab 08/15/20 01/29/21 History tablet,extended release 24 hr furosemide 40 mg tablet 40 mg PO DAILY tab 09/19/20 01/29/21 History Amlodipine Besylate 2.5 mg PO DAILY 01/29/21 01/29/21 History Levothyroxine Sodium 100 mcg PO DAILY 01/29/21 01/29/21 History [Levothyroxine 100mcg (0.1MG) Tab] Simvastatin 20 mg PO HS 01/29/21 01/29/21 History cloNIDine HCL [Clonidine HCl] 0.3 mg PO BID 01/29/21 01/29/21 History lisinopriL [Lisinopril] 20 mg PO BID 01/29/21 01/29/21 History Allergies Allergy/AdvReac Type Severity Reaction Status Date / Time No Known Allergies Allergy Verified 01/23/21 08:50 Exam Vital signs and Labs for Last 24 Hours: Temp Pulse Resp BP Pulse Ox 95.8 F L 116 H 18 174/99 H 97 01/29/21 21:41 01/29/21 21:41 01/29/21 21:41 01/29/21 21:41 01/29/21 20:01 Laboratory Results - last 24 hr 01/29/21 17:01: ABG Sodium 136 L, ABG Potassium 2.4 L*, ABG Chloride 106, ABG Lactate 4.6 H, Arterial Blood Potassium 2.4 L*, Arterial Blood Chloride 106 Microbiology Reports for the Last 24 Hours: Microbiology 01/29/21 14:00 Sputum - Endotracheal Tube Aspirate Gram Stain - Final 01/29/21 14:00 Sputum - Endotracheal Tube Aspirate Sputum Culture - Final Streptococcus oralis Narrative: EKG is SR with a rate of 164, old septal NE pattern and lateral ST/TWA. - Constit
--- NOTE | 2021-02-03 15:33 | P.PCN_ITS ---
[facility] Procedure Note Procedure Note:: Procedure Date/Time: 01.29.2021 Procedure: Radial arterial line placement Indication: Hypertensive emergency Performed by: Minor Zabala MD Consent: The procedure was performed emergently and permission was implied because of the emergent nature. Procedure summary: Hands were washed prior to starting sterile technique.? A timeout was performed.? Sterile surgical, gown and sterile gloves were used with sterile technique.? The patient was laid supine in the bed.? After an Davis's Test was performed to ensure adequate perfusion, the right wrist was prepped using chlorhexidine scrub and draped in sterile fashion using a sheet drape and sterile towels. The right radial pulse was identified. Anesthesia was achieved using 1% Lidocaine. Using the Radial Aterial Line Kit, a needle was inserted into the radial artery. Arterial blood was seen to pulsate in the flash chamber. The internal guidewire was advanced into the radial artery. The catheter was then advanced over the wire and the needle and guidewire were withdrawn. The catheter was sutured in place. A sterile adhesive dressing was placed over the catheter insertion site. The patient tolerated the procedure well. When the procedure was completed the catheter was connected to the quality assurance monitor and calibrated. Appropriate waveform and blood pressure monitoring was achieved. Estimated blood loss was less than 10 mL. Complications: No apparent complications noted immediately post procedure.
== END 2021-01-29 21:35 | disposition short-term general hospital (02) ==
LOC: ER 18:10 → 2ND 20:13
PROVIDERS: Emergency Provider Emergency Medicine
DX: I46.9 Cardiac arrest, cause unspecified (principal); J96.01 Acute respiratory failure with hypoxia; J81.0 Acute pulmonary edema; I16.1 Hypertensive emergency; I48.0 Paroxysmal atrial fibrillation; I25.10 Atherosclerotic heart disease of native coronary artery without angina pectoris; E11.9 Type 2 diabetes mellitus without complications; R06.09 Other forms of dyspnea
CPT/HCPCS: 31500; 70450; 71045; 78452; 80051; 80053; 81001; 82803; 83605; 83880; 84436; 84443; 84479; 84484; 85025; 87070; 87077; 87186; 87205; 92950; 93005; 93017; 96365; 96375; 99285; A9502; C9803; J0282; J2785; J7060; U0003; U0005

== ENCOUNTER → 2021-05-12 10:54 | Outpatient (POV) | payer MEDICARE, MEDICAID, SELFPAY | PROVIDERS: Visit Provider Internal Medicine Nephrology | DX: Z00.00 Encounter for general adult medical examination without abnormal findings (principal) ==

== ENCOUNTER → 2021-05-26 12:36 | Outpatient (CLI) | payer MEDICARE, MEDICAID, SELFPAY ==
--- NOTE | 2021-05-26 12:42 | US_ITS ---
FINAL REPORT TECHNIQUE: Ultrasound images of the kidneys and bladder were obtained. CLINICAL HISTORY: CKD FINDINGS: The right kidney measures 8 cm in length. It is normal in echogenicity. There is no hydronephrosis. The left kidney measures 8 cm in length. It is normal in echogenicity. There is no hydronephrosis. There is bilateral cortical thinning. The urinary bladder is unremarkable. IMPRESSION: No hydronephrosis. Reviewed, Interpreted and Dictated by Yifan Carl MD Transcribed by Teresa Oneal Authenticated by Yifan Carl MD on 05/26/2021 03:02:12 PM [facility]
== END ==
PROVIDERS: PCP Internal Medicine Cardiovascular Disease; Visit Provider Internal Medicine Nephrology
DX: N18.4 Chronic kidney disease, stage 4 (severe) (principal)
CPT/HCPCS: 76770

== ENCOUNTER → 2021-06-09 13:04 | Outpatient (POV) | payer MEDICARE, MEDICAID, SELFPAY ==
[2021-06-09 14:58] LABS: Basophils % 0.3 % (0.1-2.0); Eosinophils # 0.1 K/mm3 (0.0-0.4); Eosinophils % 1.8 % (0.1-12.0); Hematocrit 34.3 % (37.0-47.0); Lymphocytes # 2.2 K/mm3 (0.7-4.5); Lymphocytes % 27.5 % (10-50); Mean Corpuscular Hemoglobin 29.1 pg (27.0-31.2); Mean Corpuscular Volume 91.1 fl (81-99); Mean Platelet Volume 8.5 fl (7.4-10.4); Monocytes # 0.5 K/mm3 (0.1-1.0); Monocytes % 6.3 % (1.7-9.3); Neutrophils # 5.1 K/mm3 (1.8-7.8); Neutrophils % 64.1 % (37.0-80.0); Platelet Count 367 K/mm3 (142-424); Red Blood Count 3.76 M/mm3 (4.20-5.40); Red Cell Distribution Width 16.1 % (11.5-17.5)
[2021-06-09 15:23] LABS: Creatinine,Urine Random 17 mg/dL (Not Estab.); Microalbumin < 6.000 mg/L (0-16.7)
[2021-06-09 15:52] LABS: Albumin Level 4.1 g/dl (3.5-5.0); Blood Urea Nitrogen 18 mg/dl (7-17); Calcium 8.4 mg/dl (8.4-10.2); Carbon Dioxide 30 mmol/L (22.0-30.0); Chloride 104 mmol/L (98-107); Estimated Glomerular Filt Rate 32 ml/min (>60); GFR (African American) 38 ML/MIN (>60); Glucose 183 mg/dl (74-100); Phosphorous 3.7 mg/dl (2.5-4.5); Sodium 142 mmol/L (136-145)
== END ==
PROVIDERS: Visit Provider Internal Medicine Nephrology
DX: N18.4 Chronic kidney disease, stage 4 (severe) (principal)
CPT/HCPCS: 36415; 80069; 82043; 82570; 85025

== ENCOUNTER → 2022-02-02 13:02 | Outpatient (CLI) | payer MEDICARE, MEDICAID, SELFPAY ==
--- NOTE | 2022-02-02 13:10 | MM_ITS ---
PROCEDURE INFORMATION: Exam: MG Bilateral Screening 3D Mammography Exam date and time: 02/02/2022 1:18 PM Age: 76 years old Clinical indication: Screening examination. A maternal aunt had breast cancer. TECHNIQUE: Imaging protocol: Bilateral Screening tomosynthesis and 2D mammography including computer-aided detection (CAD) when performed. COMPARISON: 1. MG MM DIG SCREENING MAMM BI W/CAD 01/30/2020 11:02 AM 2. MG MM DIG SCREENING MAMM BI W/CAD 01/27/2019 11:14 AM 3. MG DMSB DIG MAMM-SCREEN ROB W/CAD 12/24/2016 9:53 AM 4. MG DMDXUAVL DIG MAMM-DX UNI ADD VIEWS-LT 01/17/2016 3:22 PM MG DMSB DIG MAMM-SCREEN ROB 01/03/2015 9:16 AM FINDINGS: MAMMOGRAPHY: Breast composition: There are scattered areas of fibroglandular density. Mass: No suspicious mass. Architectural distortion: None. Calcifications: No suspicious calcifications. Asymmetric density: None. Skin thickening: None. Axillary adenopathy: None. IMPRESSION: No mammographic evidence of malignancy. Annual screening is recommended unless otherwise clinically indicated. ASSESSMENT: BI-RADS Category 1: Negative
[2022-02-02 15:19] LABS: Albumin Level 3.9 g/dl (3.5-5.0); Anion Gap 19.1 mEq/L (5-15); Blood Urea Nitrogen 37 mg/dl (7-17); Calcium 9.1 mg/dl (8.4-10.2); Carbon Dioxide 26 mmol/L (22.0-30.0); Chloride 99 mmol/L (98-107); Estimated Glomerular Filt Rate 26 ml/min (>60); GFR (African American) 31 ML/MIN (>60); Glucose 228 mg/dl (74-100); Phosphorous 4.2 mg/dl (2.5-4.5); Potassium 4.1 mmoL/L (3.5-5.1); Sodium 140 mmol/L (136-145)
[2022-02-02 15:44] LABS: 25-OH Vitamin D, Total > 126 ng/mL (30-100)
== END ==
PROVIDERS: Internal Medicine Nephrology; PCP Family Medicine; Visit Provider Family Medicine
DX: Z12.31 Encounter for screening mammogram for malignant neoplasm of breast (principal); N18.4 Chronic kidney disease, stage 4 (severe); E55.9 Vitamin D deficiency, unspecified; I10 Essential (primary) hypertension
CPT/HCPCS: 36415; 77063; 77067; 80069; 82306

== ENCOUNTER → 2022-02-09 10:33 | Outpatient (POV) | payer MEDICARE, MEDICAID, SELFPAY | PROVIDERS: Visit Provider Internal Medicine Nephrology | DX: Z00.00 Encounter for general adult medical examination without abnormal findings (principal) ==

== ENCOUNTER → 2022-08-04 10:22 | Outpatient (CLI) | payer MEDICARE, MEDICAID, SELFPAY ==
[2022-08-04 10:57] LABS: Basophils % 0.3 % (0.1-2.0); Eosinophils # 0.2 K/mm3 (0.0-0.4); Eosinophils % 3.3 % (0.1-12.0); Hematocrit 34.1 % (37.0-47.0); Hemoglobin 10.9 g/dL (12.2-16.2); Lymphocytes # 1.5 K/mm3 (0.7-4.5); Lymphocytes % 21.9 % (10-50); Mean Corpuscular Hemoglobin 29.5 pg (27.0-31.2); Mean Corpuscular Volume 92.1 fl (81-99); Monocytes # 0.6 K/mm3 (0.1-1.0); Monocytes % 8.7 % (1.7-9.3); Neutrophils # 4.4 K/mm3 (1.8-7.8); Neutrophils % 65.8 % (37.0-80.0); Platelet Count 329 K/mm3 (142-424); Red Blood Count 3.71 M/mm3 (4.20-5.40); Red Cell Distribution Width 14.4 % (11.5-17.5); White Blood Count 6.8 K/mm3 (4.8-10.8)
[2022-08-04 11:19] LABS: Creatinine,Urine Random 34 mg/dL (Not Estab.); Microalbumin < 6.000 mg/L (0-16.7)
[2022-08-04 11:25] LABS: Chloride 105 mmol/L (98-107); Potassium 4.2 mmoL/L (3.5-5.1); Sodium 140 mmol/L (136-145)
[2022-08-04 11:26] LABS: Albumin Level 3.6 g/dl (3.5-5.0)
[2022-08-04 11:28] LABS: Anion Gap 14.2 mEq/L (5-15); Blood Urea Nitrogen 28 mg/dl (7-17); Carbon Dioxide 25 mmol/L (22.0-30.0); Estimated Glomerular Filt Rate 31 ml/min (>60); GFR (African American) 38 ML/MIN (>60); Phosphorous 4.4 mg/dl (2.5-4.5)
[2022-08-04 11:29] LABS: Calcium 8.4 mg/dl (8.4-10.2); Glucose 172 mg/dl (74-100)
[2022-08-04 12:17] LABS: 25-OH Vitamin D, Total 54.2 ng/mL (30-100)
== END ==
PROVIDERS: PCP Family Medicine; Visit Provider Internal Medicine Nephrology
DX: I10 Essential (primary) hypertension (principal); N18.4 Chronic kidney disease, stage 4 (severe); E67.3 Hypervitaminosis D
CPT/HCPCS: 36415; 80069; 82043; 82306; 82570; 85025

== ENCOUNTER 2022-09-24 02:54 | Observation (INO) | payer MEDICARE, MEDICAID, SELFPAY ==
[2022-09-24] VITALS (11 sets, daily range): BP systolic 103–173; BP diastolic 52–117; PULSE 60–93; RESP 14–20; TEMP 36.5–37.2; O2SAT 97–100; BMI 29.9; BMI 29.1
--- NOTE | 2022-09-24 03:00 | PC.NURSE ---
Dr. Castañeda at [facility]
--- NOTE | 2022-09-24 03:05 | XR_ITS ---
PROCEDURE INFORMATION: Exam: XR Chest Exam date and time: 09/24/2022 4:25 AM Age: 77 years old Clinical indication: Screening exam; Other screening; Additional info: Cva/cad rule out TECHNIQUE: Imaging protocol: Radiologic exam of the chest. Views: 1 view. COMPARISON: CR XR CHEST PORTABLE 01/29/2021 5:44 PM FINDINGS: Lungs: Unremarkable. No consolidation. Pleural spaces: Unremarkable. No pleural effusion. No pneumothorax. Heart/Mediastinum: Unremarkable. No cardiomegaly. Bones/joints: Unremarkable. IMPRESSION: No acute findings.
--- NOTE | 2022-09-24 03:05 | CT_ITS ---
PROCEDURE INFORMATION: Exam: CT Head Without Contrast Exam date and time: 09/24/2022 4:22 AM Age: 77 years old Clinical indication: Injury or trauma; Fall; Additional info: Fall, head trauma TECHNIQUE: Imaging protocol: Computed tomography of the head without contrast. Radiation optimization: All CT scans at this facility use at least one of these dose optimization techniques: automated exposure control; mA and/or kV adjustment per patient size (includes targeted exams where dose is matched to clinical indication); or iterative reconstruction. REPORTING DATA: Count of CT and Cardiac NM exams in prior 12 months: This patient has received 0 known CTs and 0 known cardiac nuclear medicine studies in the 12 months prior to the current study. COMPARISON: CT HEAD/BRAIN WO CON 29/01/2021 16:55 FINDINGS: Brain: Mild chronic brain volume loss and chronic small vessel ischemic changes. Cerebral ventricles: No ventriculomegaly. Paranasal sinuses: Small retention cysts in the paranasal sinuses. Mastoid air cells: Visualized mastoid air cells are well aerated. Bones/joints: Unremarkable. No acute fracture. Soft tissues: Unremarkable. IMPRESSION: No acute intracranial findings.
--- NOTE | 2022-09-24 03:11 | XR_ITS ---
PROCEDURE INFORMATION: Exam: XR Left Hip Exam date and time: 09/24/2022 4:23 AM Age: 77 years old Clinical indication: Injury or trauma; Fall; Blunt trauma (contusions or hematomas); Left; Hip; Additional info: Fall from bed, hip pain TECHNIQUE: Imaging protocol: Radiologic exam of the left hip. Views: 2 or 3 views hip with pelvis when performed. COMPARISON: CR XR LUMBAR SPINE MIN 4V 10/18/2019 9:20 AM FINDINGS: Bones/joints: Unremarkable. No acute fracture. Soft tissues: Unremarkable. IMPRESSION: No acute findings.
--- NOTE | 2022-09-24 03:11 | XR_ITS ---
PROCEDURE INFORMATION: Exam: XR Right Hip Exam date and time: 09/24/2022 4:16 AM Age: 77 years old Clinical indication: Injury or trauma; Fall; Blunt trauma (contusions or hematomas); Right; Hip; Additional info: Fall from bed, hip pain TECHNIQUE: Imaging protocol: Radiologic exam of the right hip. Views: 2 or 3 views hip with pelvis when performed. COMPARISON: CR XR LUMBAR SPINE MIN 4V 02/13/2020 09:20 FINDINGS: Bones/joints: Mild right hip osteoarthrosis. No acute fracture or dislocation. Soft tissues: Mild soft tissue edema overlying the right hip. IMPRESSION: No acute fracture or dislocation.
--- NOTE | 2022-09-24 03:14 | HMH.EDGENADL ---
Discharge Plan Disposition Patient Disposition: Admitted Condition: Fair Clinical Impressions Clinical Impression: Acute non-ST elevation myocardial infarction (NSTEMI), Generalized weakness Acute exacerbation of CHF (congestive heart failure) Qualifiers: Heart failure type: unspecified Qualified Code(s): I50.9 - Heart failure, unspecified Discharge ED Provider: Atilio Castañeda General Adult HPI General Chief complaint: Weakness Stated complaint: ams Time Seen by Provider: 09/24/22 02:55 Mode of Arrival: EMS Source of Information: Patient and Relative Limitations: No Limitations History of Present Illness HPI narrative: This is a 77-year-old female with history of hypertension, hyperlipidemia, diabetes, CKD, CHF, Franklin's hypothyroidism presenting with generalized weakness. Per patient, about 24 hours prior to arrival, she felt as if her sugar had dropped and slid herself out of bed onto the floor. She was there for unknown period of time before neighbor came to her house and helped her get up. Patient states that throughout the day, she has felt generally weak. Daughter came over just shortly prior to arrival and noticed that patient was having difficulty ambulating secondary to generalized weakness, which is not typical. Patient is usually able to ambulate well with walker, but was unable to do that. Because patient lives alone and appears to be weak, patient daughter called EMS to have patient brought to the ER for further evaluation. Patient denies chest pain, nausea, vomiting, fevers, chills, head trauma, neck or back pain, unilateral weakness, bowel or bladder dysfunction, or any other concerns at this time. Related Data Home Medications Medication Instructions Recorded Confirmed aspirin 81 mg tablet,delayed 81 mg PO DAILY Blood thinner 06/13/17 09/24/22 release glipizide 10 mg tablet, extended 10 mg PO BID Diabetes 03/23/19 09/24/22 release 24 hr furosemide 40 mg tablet 40 mg PO DAILY Edema 09/19/20 09/24/22 albuterol 90 mcg/actuation aerosol 90 mcg inhalation DAILY Breathing 04/25/21 09/24/22 inhaler Problems atorvastatin 40 mg tablet 40 mg PO DAILY High Cholesterol 04/25/21 09/24/22 carvedilol 25 mg tablet 25 mg PO BID High Blood Pressure 04/25/21 09/24/22 famotidine 20 mg tablet 20 mg PO DAILY gerd 04/25/21 09/24/22 hydralazine 50 mg tablet 50 mg PO TID High Blood Pressure 04/25/21 09/24/22 torsemide 10 mg tablet 10 mg PO DAILY Fluid 04/25/21 09/24/22 ergocalciferol (vitamin D2) 1,250 1,250 mcg PO Q2W Supplement 05/23/21 09/24/22 mcg (50,000 unit) capsule lisinopril 20 mg tablet 10 mg PO BID High Blood Pressure 11/21/21 09/24/22 amlodipine 10 mg tablet 10 mg PO DAILY High Blood Pressure 05/22/22 09/24/22 clonidine HCl 0.1 mg tablet 0.1 mg PO DAILY High Blood Pressure 05/22/22 09/24/22 levothyroxine 112 mcg tablet 112 mcg PO DAILY thyorid 05/22/22 09/24/22 metformin 500 mg tablet,extended 500 mg PO BID Diabetes 05/22/22 09/24/22 release 24 hr ferrous gluconate 240 mg (27 mg 240 mg PO DAILY Supplement 09/22/22 09/24/22 iron) tablet (Ferate) isosorbide dinitrate 20 mg tablet 20 mg PO TID High Blood Pressure 09/24/22 09/24/22 Allergies Allergy/AdvReac Type Severity Reaction Status Date / Time regadenoson [From Lexiscan] AdvReac Severe cardiac Verified 09/24/22 03:21 arrest [facility] Disclaimer: The information contained in this section may have been updated after the patient was seen, as this information can be updated by other users. Medical History (Updated 09/24/22 @ 04:51 by Atilio Castañeda MD) Abnormal EKG Anemia Arthritis Atherosclerotic heart disease CAD (coronary artery disease) Edema Edema of both lower extremities HLD (hyperlipidemia) HTN (hypertension) T2DM (type 2 diabetes mellitus) Thyroid disease Family History Other Cancer Heart attack Hyperlipidemia Hypertension Social History (Reviewed
--- NOTE | 2022-09-24 03:15 | ECG_ITS ---
APPROVED REPORT Exam: Resting ECG HR:89 bpm ECG Measurements Heart Rate 89 AXES IL 137 P 77 QRSd 81 QRS -9 QT 357 T 80 QTc 404 Conclusion SINUS RHYTHM WITH OCCASIONAL VENTRICULAR PREMATURE COMPLEXES BORDERLINE ECG UNCONFIRMED REPORT Electronically signed by : Estuardo Bass MD 09/24/2022 21:24:23
[2022-09-24 03:27] LABS: Basophils % 0.2 % (0.1-2.0); Eosinophils # 0.2 K/mm3 (0.0-0.4); Eosinophils % 1.9 % (0.1-12.0); Hematocrit 32.5 % (37.0-47.0); Hemoglobin 10.2 g/dL (12.2-16.2); Lymphocytes # 1.4 K/mm3 (0.7-4.5); Lymphocytes % 12.6 % (10-50); Mean Corpuscular HGB Conc 31.5 g/dL (31.8-35.4); Mean Corpuscular Hemoglobin 28.2 pg (27.0-31.2); Mean Corpuscular Volume 89.5 fl (81-99); Mean Platelet Volume 7.2 fl (7.4-10.4); Monocytes # 0.6 K/mm3 (0.1-1.0); Monocytes % 5.1 % (1.7-9.3); Neutrophils % 80.2 % (37.0-80.0); Platelet Count 392 K/mm3 (142-424); Red Blood Count 3.62 M/mm3 (4.20-5.40); Red Cell Distribution Width 14.2 % (11.5-17.5); White Blood Count 11.2 K/mm3 (4.8-10.8)
[2022-09-24 03:37] LABS: Alanine Aminotransferase 14 U/L (12-78); Albumin Level 4.3 g/dl (3.5-5.0); Albumin/Globulin Ratio 1.2 (1.1-1.8); Alkaline Phosphatase 89 U/L (38-126); Aspartate Amino Transferase 28 U/L (14-36); Bilirubin,Total 0.5 mg/dl (0.2-1.3); Blood Urea Nitrogen 26 mg/dl (7-17); Carbon Dioxide 23 mmol/L (22.0-30.0); Chloride 109 mmol/L (98-107); Creatine Kinase 139 U/L (30-135); Creatinine Clearance Estimated 30 mL/min (50-200); Estimated Glomerular Filt Rate 27 ml/min (>60); GFR (African American) 33 ML/MIN (>60); Globulin 3.7 g/dL (1.3-3.2); Glucose 84 mg/dl (74-100); Sodium 144 mmol/L (136-145)
[2022-09-24 03:46] LABS: NT Pro Brain Natriuretic Pep. 1800 pg/mL (0-450)
[2022-09-24 03:50] LABS: Troponin I 0.04 ng/ml (0.00-0.034)
[2022-09-24 03:55] LABS: T4 (Thyroxine) 11.9 ug/dl (5.53-11.0)
--- NOTE | 2022-09-24 04:03 | PC.NURSE ---
Pt ambulatory to bathroom x1 person assist. Urine sample collected. Pt provided with warm blanket and tv remote.
[2022-09-24 04:07] LABS: Microscopic, Urine URINE MICROSCOPIC (MICROSCOPIC)
[2022-09-24 04:08] LABS: Appearance,Urine CLEAR (Clear); Bilirubin,Urine Negative (Negative); Blood, Urine Negative (Negative); Color,Urine YELLOW (Yellow); Glucose,Urine (UA) Negative (Negative); Ketones,Urine TRACE (Negative); Leukocyte Esterase,Urine Negative (Negative); Nitrate,Urine Negative (Negative); Protein,Urine TRACE (Negative); Urobilinogen,Urine 0.2 EU/dl (0.2)
[2022-09-24 04:08] LABS: Thyroid Stimulating Hormone 0.06 uIU/mL (0.465-4.68)
--- NOTE | 2022-09-24 04:24 | PC.NURSE ---
pt transported to xray
[2022-09-24 04:29] LABS: Bacteria,Urine Trace /lpf; WBC,Urine Occasional #/hpf (0-3)
--- NOTE | 2022-09-24 04:41 | PC.NURSE ---
on phone with hospitalist
--- NOTE | 2022-09-24 04:55 | PC.NURSE ---
notified house rn for bed assignment
--- NOTE | 2022-09-24 04:58 | PC.NURSE ---
OBSERVATION ADMISSION TO 207 WITH DX OF CHF AND NSTEMI TO SERVICE OF HOSPITALIST.
--- NOTE | 2022-09-24 05:21 | PC.NURSE ---
pt ambulated to br with assist X1
--- NOTE | 2022-09-24 05:43 | PC.NURSE ---
Report given to Carol Gaffney
--- NOTE | 2022-09-24 05:56 | EXP.HP ---
History of Present Illness *Admission Date: 09/24/22 *Reason for visit:: Weakness *History of present illness: This is a 77-year-old female with history of hypertension, hyperlipidemia, diabetes, CKD, CHF, Franlkin's hypothyroidism presenting with generalized weakness. Per patient, about 24 hours prior to arrival, she felt as if her sugar had dropped and slid herself out of bed onto the floor. She was there for unknown period of time before neighbor came to her house and helped her get up. Patient states that throughout the day, she has felt generally weak. Patient referred to me and has been increasing. Patient admitted for monitor. [facility] Disclaimer: The information contained in this section may have been updated after the patient was seen, as this information can be updated by other users. Medical History (Updated 09/24/22 @ 09:15 by ANA Bruce) Abnormal EKG Anemia Arthritis Atherosclerotic heart disease CAD (coronary artery disease) Edema Edema of both lower extremities HLD (hyperlipidemia) HTN (hypertension) T2DM (type 2 diabetes mellitus) Thyroid disease Troponin level elevated Surgical History (Updated 09/24/22 @ 06:34 by Jannette Padilla RN) H/O right heart catheterization Family History Other Cancer Heart attack Hyperlipidemia Hypertension Social History (Updated 09/24/22 @ 06:42 by Jannette Padilla RN) Smoking Status: Never smoker alcohol intake: never substance use type: denies use current occupational status: retired Travel in the last 8 weeks: Inside the [place] housing: house current occupational exposures/hazards: No caffeine: Yes Review of Systems Review of Systems Review of systems:: pertinent systems reviewed and negative unless documented below Meds Home Medications and Allergies Home Medications Medication Instructions Recorded Confirmed Type glipizide 10 mg tablet, extended 10 mg PO BID Diabetes 03/23/19 09/24/22 History release 24 hr albuterol 90 mcg/actuation aerosol 90 mcg inhalation DAILY Shortness 04/25/21 09/24/22 History inhaler of Breath atorvastatin 40 mg tablet 40 mg PO DAILY Cholesterol 04/25/21 09/24/22 History carvedilol 25 mg tablet 25 mg PO BID Blood Pressure 04/25/21 09/24/22 History famotidine 20 mg tablet 20 mg PO HS GERD 04/25/21 09/24/22 History hydralazine 50 mg tablet 50 mg PO BID Blood Pressure 04/25/21 09/24/22 History torsemide 10 mg tablet 5 mg PO DAILY Fluid 04/25/21 09/24/22 History lisinopril 20 mg tablet 20 mg PO BID Blood Pressure 11/21/21 09/24/22 History amlodipine 10 mg tablet 10 mg PO DAILY Blood Pressure 05/22/22 09/24/22 History levothyroxine 112 mcg tablet 112 mcg PO DAILY Thyroid 05/22/22 09/24/22 History metformin 500 mg tablet,extended 500 mg PO DAILY Diabetes 05/22/22 09/24/22 History release 24 hr ferrous gluconate 240 mg (27 mg 240 mg PO DAILY Supplement 09/22/22 09/24/22 History iron) tablet (Ferate) isosorbide dinitrate 20 mg tablet 20 mg PO TID Blood Pressure 09/24/22 09/24/22 History New Prescriptions to Start Prescriptions: Allergies Allergy/AdvReac Type Severity Reaction Status Date / Time regadenoson [From Orbital Traction] AdvReac Severe cardiac Verified 09/24/22 03:21 arrest Exam Data for Last 24 hours Vital signs and Labs for Last 24 Hours: Temp Pulse Resp BP Pulse Ox O2 Del Method 98.2 F 87 19 149/79 H 97 Room Air 09/24/22 02:54 09/24/22 03:30 09/24/22 03:30 09/24/22 03:30 09/24/22 03:30 09/24/22 03:30 Laboratory Results - last 24 hr 09/24/22 02:55: WBC 11.2 H, RBC 3.62 L, Hgb 10.2 L, Hct 32.5 L, MCV 89.5, MCH 28.2, MCHC 31.5 L, RDW 14.2, Plt Count 392, MPV 7.2 L, Neut % (Auto) 80.2 H, Lymph % (Auto) 12.6, Tyler % (Auto) 5.1, Eos % (Auto) 1.9, Baso % (Auto) 0.2, Neut # (Auto) 9.0 H, Lymph # (Auto) 1.4, Tyler # (Auto) 0.6, Eos # (Auto) 0.2, Baso # (Auto) 0.0, Sodium 144, Potassium 4.0
--- NOTE | 2022-09-24 06:03 | PC.NURSE ---
pt arrived via nayanaer @ 408
--- NOTE | 2022-09-24 06:13 | PC.NURSE ---
Notified [facility] Director that pt had become very somnolent and fatigued- only following some commands. Havin trouble staying awake, wont open eyes. daughter states this is a big change for her based on when she was in the ER. Vital signs stable. NNO at this time.
[2022-09-24 07:23] LABS: Troponin I 0.04 ng/ml (0.00-0.034)
--- NOTE | 2022-09-24 07:57 | PC.NURSE ---
Sugar checked and was 32. amp of d50 given per protocol. Pt immediately started to awaken. Order faxed to pharmacy.
--- NOTE | 2022-09-24 08:22 | HMH.PHAINT1 ---
Pharmacy Intervention Comments: Patient's home medications reviewed and verified with external pharmacy, patient, and patient's daughter. -Jack Saleem, Pharm Student
--- NOTE | 2022-09-24 08:57 | EXP.CARD.CON ---
History of Present Illness History of Present Illness Consult date: 09/24/22 Requesting physician: Salvador Berger Consult reason: shortness of breath Chief complaint: weakness, SOA Additional Medical History:: 1. CAD A. [facility], 02/2018, mild to moderate CAD (proximal LAD, proximal ramus, proximal RCA), EF 55 with LVEDP 20 mmHg, medical management. Singular and normal bilateral renal arteries B. Lexiscan Myoview, 01/29/2021, no ischemia with EF 45% 2. Hypertension/hypertensive heart disease A. Diastolic dysfunction/diastolic heart failure B. Echocardiogram 08/20/2020, biatrial enlargement, normal LV size, mild concentric LVH, EF 55% with no regional WMA, grade 2 DD, thickened and calcified aortic valve with moderate stenosis and valve area 1.2 cm? Mild MR and TR with RVSP of 64 mmHg. 3. Aortic stenosis, moderate A. Echocardiogram, 08/20/2020, HERBERTH of 1.2 cm? consistent with moderate aortic stenosis 4. Carotid artery stenosis A. Less than 20% bilateral stenosis, October 2019 5. Hyperlipidemia A. LDL 68 on 10/12/2019 6. Diabetes mellitus A. Trace proteinuria, 09/24/2022 7. Chronic kidney disease, Stage IV with GFR 27 and creatinine 1.8 on 09/24/2022 A. Chronic anemia with hemoglobin 10-11 B. Renal ultrasound, 05/26/2021, no hydronephrosis with normal kidney 8. Hypothyroidism with prior thyroidectomy in 2014 A. On replacement therapy with TSH of 0.06 on 09/25/2019 9. Chronic small vessel ischemic changes of the brain, CT of the head, 09/24/2022 with no acute change History of present illness: 77-year-old white female admitted through the ER for evaluation of weakness intermittently over the last several days. Patient denies any chest pain, pressure or tightness. Yesterday morning while attempting to get out of bed she was unable to support herself and slid down to the floor. She was able to crawl on all fours to her front door and called her neighbor for help to get up to the couch. Her daughter and granddaughter came later in the evening to help her maneuver around and was unable to help her get up. EMS was contacted and patient was brought to the emergency department for further evaluation. Initial blood work showed glucose at 84 with slightly elevated troponin and BNP of 1800. Patient was given a dose of IV Lasix along with gentle IV fluid due to chronic kidney disease. Chest x-ray did not show overt pulmonary edema but was felt to have cephalization in the periphery. EKG was sinus with no acute ST segment changes. Of note patient relates her metformin was recently reduced due to low blood sugars. Daughter noted that the patient's blood sugar after arriving to the floor last night was in the 30s and patient was experiencing A. Episode of weakness at that time. After being quickly corrected she came back to her baseline status. Cardiology consulted for suspected non-STEMI and heart failure. [facility] Disclaimer: The information contained in this section may have been updated after the patient was seen, as this information can be updated by other users. Medical History (Updated 09/24/22 @ 09:15 by ANA Bruce) Abnormal EKG Anemia Arthritis Atherosclerotic heart disease CAD (coronary artery disease) Edema Edema of both lower extremities HLD (hyperlipidemia) HTN (hypertension) T2DM (type 2 diabetes mellitus) Thyroid disease Troponin level elevated Surgical History (Updated 09/24/22 @ 06:34 by Jannette Padilla, JASS) H/O right heart catheterization Family History Other Cancer Heart attack Hyperlipidemia Hypertension Social History (Updated 09/24/22 @ 06:42 by Jannette Padilla, JASS) Smoking Status: Never smoker alcohol intake: never substance use type: denies use current occupational status: retired Travel in the last 8 weeks: [place] housing[place] house current occupational exposures/hazards: No caffeine: Yes Review o
[2022-09-24 09:42] LABS: Troponin I 0.04 ng/ml (0.00-0.034)
--- NOTE | 2022-09-24 10:17 | PC.NURSE ---
Courtesy Round Patient awake laying in bed with visitor at bedside. Trash and linens emptied. No other needs voiced at this time. Call light within reach
--- NOTE | 2022-09-24 10:44 | HMH.PTEV ---
Physical Therapy Evaluation Rehab PT IP Evaluation Start: 09/24/22 05:55 Freq: ONCE Status: Active Protocol: Document 09/24/22 10:42 LC (Rec: 09/24/22 10:44 LC [id number]) Subjective/History History History 77 yowf adm to [facility] with CHF and NSTEMI. Hx of HTN, DM, HLD , CKD. She reports she lives alone, 1 step to enter the home, and she is generally independent with all ADLs and mobility without AD. Subjective Subjective Pt currently has no c/o other than feeling cold. Rehab PT IP Eval Objective Appearance Patient Behavior Appropriate Patient Orientation Person,Place,Time Difficulty following instructions none Speech Pattern Clear Ambulation Patient Able to Ambulate Yes Ambulation Observation IP General Gait Pattern Observation No Deviations/Normal Ambulation Distance (feet) 40 Ambulation Assistive Device None Ambulation Ability Independent Balance Ability to Arise Able, uses arms to help Sitting Balance Steady, safe Standing Balance Steady, wide stance Dynamic Sitting Balance Ability Good Dynamic Standing Balance Ability Good Transfers Bed Transfer Ability Independent Chair Transfer Ability Independent Sit to Stand Bed Transfer Ability Independent Sit to Stand Chair Transfer Ability Independent ROM All Extremities PT ROM Status WFL MMT All Extremities PT MMT WFL Rehab PT IP prob,goals,plan Problems Date of Evaluation: 09/24/22 Discharge Plan PT Discharge Plan Pt is currently independet with all mobility and is appropriate to return home once medically stable for d/c. G -code Required No Eval Complexity Eval Charge Codes 88224 - High Complexity PHYSICIAN CERTIFICATION: I certify the specified therapy services for Carol Cazares are required, authorized, and reviewed every 30 days.
--- NOTE | 2022-09-24 11:36 | SW/DCPLANNER ---
Addendum entered by Araseli Soto 09/25/22 14:03: Chitra burks/ [facility] stated that services will begin Wednesday09/28/22 for this patient. Original Note: I spoke with this patient regarding plans once medically stable for discharge. PT/OT evaluated patient and recommended home w/ home health services. Patient is agreeable to home health at time of discharge and prefers to use [facility]. Discharge date is unknown at this time. Once ready for discharge patient information/order will be faxed to [facility].
--- NOTE | 2022-09-24 11:57 | HMH.OTEV ---
OT Inpatient Evaluation Rehab OT IP Evaluation Start: 09/24/22 05:55 Freq: ONCE Status: Active Protocol: Document 09/24/22 11:49 YEMI (Rec: 09/24/22 11:56 YEMI [id number]) Rehab OT IP Assessment Subjective History This is a 77-year-old female with history of hypertension, hyperlipidemia, diabetes, CKD, CHF, Franklin's hypothyroidism presenting with generalized weakness. Per patient, about 24 hours prior to arrival, she felt as if her sugar had dropped and slid herself out of bed onto the floor. She was there for unknown period of time before neighbor came to her house and helped her get up. Patient states that throughout the day , she has felt generally weak. Patient referred to me and has been increasing. Patient admitted for monitor. Patient lives alone in 1 story home with 1 REINAL[address]. Patient completed all ADLs and fx'l mobility independently. Patient reported to have a RW for mobility at home when needed. Subjective I can get up. Analysis Patient's fx'l mobility of transfers, bed mobility, and ADLs this date. Patient completed all tasks independently. No LOB noted. Objective Patient Orientation Person,Place,Name,Age,Year Upper Extremity Gross ROM WFL Bed Mobility bed mobility - supine/sit Assist Level Independent Transfer Training Sit/Stand Transfer Assist Level Independent Chair Transfer Ability Independent Chair Transfer Technique Sit to/from Ambulatory Chair Transfer Assistive Devices None Lower Body Dressing Ability Independent Upper Body Dressing Ability Independent Rehab OT IP prob,goals,plan Problems Date of Evaluation: 09/24/22 Rehab Potential Rehab Potential Innapropriate for Skilled Therapy Equipment Needs Assistive Devices None / NA Discharge Plan OT Discharge Plan
[2022-09-24 15:37] LABS: POC Glucose,Bedside 156 (70-110)
[2022-09-24 15:37] LABS: POC Glucose,Bedside 177 (70-110)
[2022-09-24 15:37] LABS: POC Glucose,Bedside 197 (70-110)
[2022-09-24 17:26] LABS: POC Glucose,Bedside 109 (70-110)
--- NOTE | 2022-09-24 19:49 | PC.NURSE ---
Patient has been alert and oriented during shift and remained on room air. Blood sugar stable throughout shift after 1 amp of d50. Patient up to chair for lunch but requested to be back in bed for dinner. Patient able to ambulate with one assist.
[2022-09-24 21:40] LABS: POC Glucose,Bedside 110 (70-110)
[2022-09-25] VITALS: BP 120/59; PULSE 70; RESP 20; TEMP 36.8; O2SAT 99
--- NOTE | 2022-09-25 03:41 | PC.NURSE ---
pt has had c/o right shoulder pain, relieved Tylenol at 0144 - unrelieved - received morphine at 333 - will continue to monitor
--- NOTE | 2022-09-25 03:50 | PC.NURSE ---
pt has slept poorly tonight. denies soa, chest pain, dizziness. ambulated to and from bathroom with standby assist. bed alarm on when family is out of room r/t recent falls hx. 20g RAC NS @ 50. RA. A&Ox4. bed locked and in lowest position with call light in reach.
[2022-09-25 04:00] VITALS: BP 125/63; PULSE 60; PULSE 68; RESP 18; TEMP 37; O2SAT 96
[2022-09-25 05:27] LABS: POC Glucose,Bedside 60 (70-110)
[2022-09-25 05:54] LABS: POC Glucose,Bedside 89 (70-110)
--- NOTE | 2022-09-25 05:59 | PC.NURSE ---
0517 glucose 60. gave 240 ml OJ w/ 1 sugar packet. 0546 glucose 89. pt not symptomatic.
[2022-09-25 07:58] LABS: Hemoglobin A1C 5.6 % (4.0-6.0)
[2022-09-25 08:00] VITALS: BP 99/48; PULSE 57; PULSE 60; RESP 16; TEMP 37; O2SAT 98
--- NOTE | 2022-09-25 08:45 | PC.NURSE ---
TECH NOTE; NOTIFIED NURSE OF BLOOD PRESSURE FOR 0800 VITAL SIGNS Raymundo GAYTAN, SRNA
[2022-09-25 11:03] LABS: POC Glucose,Bedside 219 (70-110)
[2022-09-25 12:00] VITALS: BP 138/72; PULSE 60; RESP 16; TEMP 37.4; O2SAT 100
--- NOTE | 2022-09-25 12:09 | EXP.CARD.PN ---
Subjective Subjective Date: 09/25/22 Time: 12:09 Interval history: 77-year-old black female sitting in bedside chair eating lunch in no acute distress. Patient is anxious to go home. She is feeling better than on admission. Echocardiogram shows preserved ejection fraction and reads there is no evidence of significant aortic stenosis however the echo was reviewed with Dr. Hoyt and there is evidence of moderate aortic stenosis with a valve area of 1.2 cm? which is consistent with previous tracing in 2020. Exam Data for Last 24 hours Vital signs and Labs for Last 24 Hours: Temp Pulse Resp BP Pulse Ox O2 Del Method 98.6 F 60 16 99/48 L 98 Room Air 09/25/22 08:00 09/25/22 08:00 09/25/22 08:00 09/25/22 08:00 09/25/22 08:00 09/25/22 10:00 Laboratory Results - last 24 hr 09/24/22 08:07: POC Glucose 177 H 09/24/22 10:04: POC Glucose 197 H 09/24/22 11:24: POC Glucose 156 H 09/24/22 17:11: POC Glucose 109 09/24/22 21:19: POC Glucose 110 09/25/22 05:17: POC Glucose 60 L 09/25/22 05:46: POC Glucose 89 09/25/22 06:42: Hemoglobin A1c 5.6 09/25/22 10:50: POC Glucose 219 H I & O for Last 24 hours: Intake & Output 09/23/22 09/24/22 09/25/22 09/26/22 11:59 11:59 11:59 11:59 Intake Total 240 / 240 2129 / 2129 Output Total 1000 / 1300 950 / 950 Balance -760 / -1060 1179 / 1179 Weight 148 lb 6 oz 153 lb 4 oz Constitutional Constitutional: no acute distress *Routine Respiratory Exam Respiratory: Present CTA bilaterally *Routine Cardiovascular Exam Cardiovascular: Present RRR and murmur; Absent gallop or rubs *Routine Extremities Exam Extremities: Present edema; Absent cyanosis or clubbing Progress Note: A&P Assessment and plan (1) Generalized weakness: Status: Acute (2) Elevated brain natriuretic peptide (BNP) level: Status: Acute (3) Troponin level elevated: Status: Acute (4) Diabetes mellitus type 2 in nonobese: Status: Chronic (5) Stage III chronic kidney disease: Status: Chronic (6) HLD (hyperlipidemia): Status: Chronic (7) CAD (coronary artery disease): Status: Chronic (8) HTN (hypertension): Status: Chronic (9) Hypothyroidism: Status: Acute Assessment and Plan Assessment and Plan for All Diagnoses:: 1. Episodic weakness likely related to hypoglycemic episodes Defer work-up to hospitalist service 2. Elevated troponin and BNP in the setting of CAD and acute on chronic diastolic congestive heart failure Patient back to baseline after IV diuresis Resume home dose of torsemide Echo shows preserved ejection fraction with moderate aortic stenosis 3. Known aortic stenosis of moderate severity by echo from 2020 Aortic stenosis still moderate by echocardiogram this admission 4. Coronary artery disease Clinically stable at this time Mildly elevated troponin felt secondary to diastolic heart failure 5. CKD, stage IV Patient follows with nephrology 6. Hyperlipidemia Resume statin therapy 7. Lower extremity edema likely related to amlodipine therapy 8. Hypertension Resume home medications of lisinopril, isosorbide, hydralazine, carvedilol Hold amlodipine for now 9. Hypothyroidism with evidence of hyperthyroidism on labs Defer to hospitalist Clinically stable from a cardiac standpoint for discharge home. Home medication recommendations: Torsemide 10 mg 1/2 tablet daily Hydralazine 50 mg twice daily Carvedilol 25 mg twice daily Isosorbide dinitrate 20 mg 3 times daily Atorvastatin 40 mg daily Zestril or lisinopril 10 mg twice daily Discontinue amlodipine due to lower extremity edema Follow-up in our office in 2 weeks.
--- NOTE | 2022-09-25 12:53 | EXP.DC.SUM ---
General Admission date:: 09/24/22 Discharge date: 09/25/22 HPI HPI HPI: This is a 77-year-old female with history of hypertension, hyperlipidemia, diabetes, CKD, CHF, Franklin's hypothyroidism presenting with generalized weakness. Per patient, about 24 hours prior to arrival, she felt as if her sugar had dropped and slid herself out of bed onto the floor. She was there for unknown period of time before neighbor came to her house and helped her get up. Patient states that throughout the day, she has felt generally weak. Patient referred to me and has been increasing. Patient admitted for monitor. Hospital Course Hospital Course Hospital Course: The patient had blood sugars as low as 32 which increased to normal limits after administration of d50w corresponding with resolution of weakness. The patient's a1c was found to 5.6. Her glipizide was discontinued and she is to continue metformin. Her TSH was found to be low at 0.06 and t4 was elevated at 11.9 ng/ml. Her dose of synthroid was decreased from 112mcg daily to 88mcg daily. Cardiology discontinued her amlodipine. She will need to follow up with her PCP in 1 week. Exam Data for Last 24 hours Vital signs and Labs for Last 24 Hours: Temp Pulse Resp BP Pulse Ox O2 Del Method 99.3 F 60 16 138/72 100 Room Air 09/25/22 12:00 09/25/22 12:00 09/25/22 12:00 09/25/22 12:00 09/25/22 12:00 09/25/22 12:00 Laboratory Results - last 24 hr 09/24/22 08:07: POC Glucose 177 H 09/24/22 10:04: POC Glucose 197 H 09/24/22 11:24: POC Glucose 156 H 09/24/22 17:11: POC Glucose 109 09/24/22 21:19: POC Glucose 110 09/25/22 05:17: POC Glucose 60 L 09/25/22 05:46: POC Glucose 89 09/25/22 06:42: Hemoglobin A1c 5.6 09/25/22 10:50: POC Glucose 219 H I & O for Last 24 hours: Intake & Output 09/22/22 09/23/22 09/24/22 09/25/22 23:59 23:59 23:59 23:59 Intake Total 1359 / 1359 1010 / 1010 Output Total 1300 / 1300 850 / 850 Balance 59 / 59 160 / 160 Weight 67.302 kg 69.513 kg Constitutional Constitutional: no acute distress *Routine HEENT Exam Head: Present normocephalic Eye: Present EOMI and PERRL ENT: Present mucous membranes moist *Routine Neck Exam Neck: Present supple; Absent lymphadenopathy *Routine Respiratory Exam Respiratory: Present CTA bilaterally *Routine Cardiovascular Exam Cardiovascular: Present RRR *Routine Abdominal Exam Abdominal: Present soft and normoactive bowel sounds; Absent tenderness *Routine Extremities Exam Extremities: Absent cyanosis, clubbing or edema *Routine Skin Exam Skin: Present warm; Absent rash *Routine Neurological Exam Neurological: Present alert and oriented X3 Results Data Completed and Pending Labs on day of discharge: Labs from last 24 hours 09/25/22 09/25/22 09/25/22 10:50 06:42 05:46 POC Glucose 219 H 89 Hemoglobin A1c 5.6 09/25/22 09/24/22 09/24/22 05:17 21:19 17:11 POC Glucose 60 L 110 109 Hemoglobin A1c 09/24/22 09/24/22 09/24/22 11:24 10:04 08:07 POC Glucose 156 H 197 H 177 H Hemoglobin A1c DS: Diagnosis Discharge Diagnosis (1) Generalized weakness: Status: Acute Code(s): R53.1 - Weakness (2) Elevated brain natriuretic peptide (BNP) level: Status: Acute Code(s): R79.89 - Other specified abnormal findings of blood chemistry (3) Troponin level elevated: Status: Acute Code(s): R77.8 - Other specified abnormalities of plasma proteins (4) Diabetes mellitus type 2 in nonobese: Status: Chronic Code(s): E11.9 - Type 2 diabetes mellitus without complications (5) Stage III chronic kidney disease: Status: Chronic Code(s): N18.3 - Chronic kidney disease, stage 3 (moderate) Qualifiers: Chronic kidney disease stage 3 subtype: stage 3b (GFR 30-44) Qualified Code(s): N18.32 - Chronic kidney disease, stage 3b (6) HLD (hyperlipidemia): Status: Chronic Code(s): E78.5 - Hype
--- NOTE | 2022-09-25 13:37 | HMH.PHAINT1 ---
Pharmacy Intervention Comments: Discharge medications reviewed with patient and patients family member. -levothyroxine switch from 112 to 88mcg. -blood glucose monitor -D/C amlodipine and glipizide -Medications were sent to [facility], PharmD student
--- NOTE | 2022-09-28 14:25 | CARE MANAGER ---
Spoke with patient for post-discharge phone interview, no issues noted.
== END 2022-09-25 14:35 | disposition home health service (06) ==
LOC: ER 04:51 → 2ND 05:33
PROVIDERS: Nurse Practitioner Critical Care Medicine; Admitting Provider Internal Medicine; Emergency Provider Emergency Medicine; PCP Family Medicine; Visit Provider Internal Medicine
DX: I21.4 Non-ST elevation (NSTEMI) myocardial infarction (principal); I35.0 Nonrheumatic aortic (valve) stenosis; E06.3 Autoimmune thyroiditis; E78.2 Mixed hyperlipidemia; I25.10 Atherosclerotic heart disease of native coronary artery without angina pectoris; I50.33 Acute on chronic diastolic (congestive) heart failure; N18.4 Chronic kidney disease, stage 4 (severe); E11.22 Type 2 diabetes mellitus with diabetic chronic kidney disease; I13.10 Hypertensive heart and chronic kidney disease without heart failure, with stage 1 through stage 4 chronic kidney disease, or unspecified chronic kidney disease
CPT/HCPCS: G0378; 36415; 70450; 71045; 73502; 80053; 81001; 82550; 82962; 83036; 83880; 84436; 84443; 84484; 85025; 93005; 93041; 93306; 97163; 97165; 99285

== ENCOUNTER → 2023-02-08 11:58 | Outpatient (CLI) | payer MEDICARE, MEDICAID, SELFPAY ==
[2023-02-08 12:07] LABS: Microscopic, Urine URINE MICROSCOPIC (MICROSCOPIC)
[2023-02-08 12:43] LABS: Basophils % 0.5 % (0.1-2.0); Eosinophils # 0.1 K/mm3 (0.0-0.4); Eosinophils % 1.4 % (0.1-12.0); Hematocrit 32.6 % (37.0-47.0); Hemoglobin 10.5 g/dL (12.2-16.2); Lymphocytes # 0.8 K/mm3 (0.7-4.5); Mean Corpuscular HGB Conc 32.2 g/dL (31.8-35.4); Mean Corpuscular Hemoglobin 28.7 pg (27.0-31.2); Mean Corpuscular Volume 89.1 fl (81-99); Mean Platelet Volume 8.8 fl (7.4-10.4); Monocytes # 0.3 K/mm3 (0.1-1.0); Monocytes % 7.9 % (1.7-9.3); Neutrophils # 3.1 K/mm3 (1.8-7.8); Neutrophils % 71.2 % (37.0-80.0); Platelet Count 247 K/mm3 (142-424); Red Blood Count 3.66 M/mm3 (4.20-5.40); Red Cell Distribution Width 16.1 % (11.5-17.5); White Blood Count 4.3 K/mm3 (4.8-10.8)
[2023-02-08 13:12] LABS: Chloride 106 mmol/L (98-107)
[2023-02-08 13:13] LABS: Sodium 141 mmol/L (136-145)
[2023-02-08 13:15] LABS: Alanine Aminotransferase 14 U/L (12-78); Aspartate Amino Transferase 24 U/L (14-36); Bilirubin,Unconjugated 0.2 mg/dL (0.0-1.1); Blood Urea Nitrogen 16 mg/dl (7-17); Carbon Dioxide 27 mmol/L (22.0-30.0); Estimated Glomerular Filt Rate 34 ml/min (>60); GFR (African American) 41 ML/MIN (>60)
[2023-02-08 13:16] LABS: Albumin Level 3.9 g/dl (3.5-5.0); Alkaline Phosphatase 76 U/L (38-126); Bilirubin,Direct 0.3 mg/dl (0.0-0.4); Bilirubin,Indirect 0.2 mg/dL (0.0-0.9); Bilirubin,Total 0.5 mg/dl (0.2-1.3); Calcium 8.2 mg/dl (8.4-10.2); Chol/HDL Ratio 3.2 (1-3.5); Cholesterol 120 mg/dl (140-200); Glucose 249 mg/dl (74-100); HDL Cholesterol 38 mg/dl (40-60); Magnesium 1.3 mg/dl (1.6-2.3); Total Protein,Serum 6.7 g/dl (6.3-8.2); Triglycerides 52 mg/dl (30-150); VLDL Cholesterol 10 mg/dL (0-40)
[2023-02-08 13:16] LABS: Albumin Level 3.7 g/dl (3.5-5.0); Anion Gap 10.9 mEq/L (5-15); Blood Urea Nitrogen 16 mg/dl (7-17); Calcium 8.1 mg/dl (8.4-10.2); Carbon Dioxide 25 mmol/L (22.0-30.0); Chloride 106 mmol/L (98-107); Estimated Glomerular Filt Rate 37 ml/min (>60); GFR (African American) 44 ML/MIN (>60); Glucose 247 mg/dl (74-100); Phosphorous 3.6 mg/dl (2.5-4.5); Potassium 3.9 mmoL/L (3.5-5.1); Sodium 138 mmol/L (136-145)
[2023-02-08 13:27] LABS: Direct LDL Cholesterol 66.58 mg/dL (100-129)
[2023-02-08 13:29] LABS: Intact Parathyroid Hormone 91.3 pg/mL (7.5-53.5)
[2023-02-08 13:33] LABS: 25-OH Vitamin D, Total 63.9 ng/mL (30-100)
[2023-02-08 13:33] LABS: Free T4 (Free Thyroxine) 1.75 ng/dl (0.78-2.19)
[2023-02-08 14:46] LABS: Appearance,Urine CLEAR (Clear); Bilirubin,Urine Negative (Negative); Blood, Urine Negative (Negative); Color,Urine YELLOW (Yellow); Glucose,Urine (UA) Negative (Negative); Ketones,Urine Negative (Negative); Leukocyte Esterase,Urine Negative (Negative); Nitrate,Urine Negative (Negative); Protein,Urine Negative (Negative); Specific Gravity, Urine 1.015 (1.005-1.030); Urobilinogen,Urine 0.2 EU/dl (0.2)
[2023-02-08 14:54] LABS: Squamous Epithelial Cell,Urine Occasional #/hpf (0-5); WBC,Urine Occasional #/hpf (0-3)
[2023-02-08 15:25] LABS: Creatinine,Urine Random 38 mg/dL (Not Estab.)
[2023-02-08 15:42] LABS: Thyroid Stimulating Hormone 5.22 uIU/mL (0.465-4.68)
== END ==
PROVIDERS: Nurse Practitioner; PCP Family Medicine; Visit Provider Nurse Practitioner
DX: E78.2 Mixed hyperlipidemia (principal); E11.9 Type 2 diabetes mellitus without complications; I11.9 Hypertensive heart disease without heart failure; I25.10 Atherosclerotic heart disease of native coronary artery without angina pectoris; I27.20 Pulmonary hypertension, unspecified; I35.0 Nonrheumatic aortic (valve) stenosis; I50.30 Unspecified diastolic (congestive) heart failure; N18.4 Chronic kidney disease, stage 4 (severe); E78.5 Hyperlipidemia, unspecified; E66.9 Obesity, unspecified; Z68.29 Body mass index [BMI] 29.0-29.9, adult; Z79.84 Long term (current) use of oral hypoglycemic drugs
CPT/HCPCS: 36415; 80048; 80061; 80069; 80076; 81001; 82306; 82570; 83735; 83970; 84155; 84439; 84443; 85025

== ENCOUNTER → 2023-02-12 09:43 | Outpatient (CLI) | payer MEDICARE, MEDICAID, SELFPAY ==
--- NOTE | 2023-02-12 09:50 | MM_ITS ---
PROCEDURE INFORMATION: Exam: MG Bilateral Screening 3D Mammography Exam date and time: 02/12/2023 9:50 AM Age: 77 years old Clinical indication: Screening examination TECHNIQUE: Imaging protocol: Bilateral Screening tomosynthesis and 2D mammography including computer-aided detection (CAD) when performed. COMPARISON: 1. MG MM DIG SCREENING MAMM BI W/CAD 02/02/2022 1:18 PM 2. MG MM DIG SCREENING MAMM BI W/CAD 01/30/2020 11:02 AM FINDINGS: MAMMOGRAPHY: Breast composition: There are scattered areas of fibroglandular density. Mass: None. Architectural distortion: None. Calcifications: No suspicious calcifications. Asymmetric density: None. Skin thickening: None. Axillary adenopathy: None. IMPRESSION: No mammographic evidence of malignancy. Annual screening is recommended unless otherwise clinically indicated. ASSESSMENT: BI-RADS Category 1: Negative
== END ==
PROVIDERS: PCP Family Medicine; Visit Provider Family Medicine
DX: Z12.31 Encounter for screening mammogram for malignant neoplasm of breast (principal)
CPT/HCPCS: 77063; 77067

== ENCOUNTER 2023-08-17 10:15 | Outpatient (CLI) | payer MEDICARE, MEDICAID, SELFPAY ==
--- OUTSIDE RECORDS SUMMARY | 2023-08-17 10:18 | XMS_ITS | Clinical Summary ---
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 Medications No information available. Medications Administered No information available. Allergies, Adverse Reactions, Alerts No information available. Results No information available. Plan of Care No information available. Procedures No information available. Vital Signs No information available. Immunizations No information available. Advance Directives No information available.
[2023-08-17 10:24] LABS: Microscopic, Urine URINE MICROSCOPIC (MICROSCOPIC)
[2023-08-17 11:19] LABS: Appearance,Urine CLEAR (Clear); Bilirubin,Urine Negative (Negative); Blood, Urine Negative (Negative); Color,Urine YELLOW (Yellow); Glucose,Urine (UA) Negative (Negative); Ketones,Urine Negative (Negative); Leukocyte Esterase,Urine Negative (Negative); Nitrate,Urine Negative (Negative); Protein,Urine Negative (Negative); Specific Gravity, Urine <= 1.005 (1.005-1.030); Urobilinogen,Urine 0.2 EU/dl (0.2)
[2023-08-17 11:27] LABS: Hematocrit 31.3 % (37.0-47.0); Mean Corpuscular Volume 90.8 fl (81-99); Platelet Count 329 K/mm3 (142-424); Red Blood Count 3.44 M/mm3 (4.20-5.40); Red Cell Distribution Width 15.4 % (11.5-17.5); White Blood Count 6.5 K/mm3 (4.8-10.8)
[2023-08-17 11:35] LABS: Chloride 101 mmol/L (98-107); Sodium 138 mmol/L (136-145)
[2023-08-17 11:36] LABS: Albumin Level 3.8 g/dl (3.5-5.0); Potassium 4.1 mmoL/L (3.5-5.1)
[2023-08-17 11:38] LABS: Anion Gap 15.1 mEq/L (5-15); Blood Urea Nitrogen 22 mg/dl (7-17); Carbon Dioxide 26 mmol/L (22.0-30.0); Estimated Glomerular Filt Rate 29 ml/min (>60); GFR (African American) 35 ML/MIN (>60); Phosphorous 4.1 mg/dl (2.5-4.5)
[2023-08-17 11:39] LABS: Calcium 8.7 mg/dl (8.4-10.2); Glucose 248 mg/dl (74-100)
[2023-08-17 11:42] LABS: RBC,Urine Occasional #/hpf (0-3)
[2023-08-17 12:27] LABS: Creatinine,Urine Random 28 mg/dL (Not Estab.)
[2023-08-17 12:29] LABS: Microalbumin < 6.000 mg/L (0-16.7)
== END 2023-08-17 23:59 | disposition home or self-care (01) ==
LOC: LAB 10:16
PROVIDERS: PCP Family Medicine; Visit Provider Nurse Practitioner
DX: N18.4 Chronic kidney disease, stage 4 (severe) (principal)
CPT/HCPCS: 36415; 80069; 81001; 82043; 82570; 84156; 85014; 85018; 85048; 85049

== ENCOUNTER 2023-08-23 13:22 | Outpatient (POV) | payer MEDICARE, MEDICAID, SELFPAY ==
--- OUTSIDE RECORDS SUMMARY | 2023-08-23 13:24 | XMS_ITS | Clinical Summary ---
Author Name Unknown Address [address] [place] [address] [address] [place] [address] Phone Organization [facility] Address [address] [place] [address] Phone Care Team Providers Care Scrap Piler Name Role Phone Unavailable Unavailable Conditions or Problems No information available. Medications No information available. Medications Administered No information available. Allergies, Adverse Reactions, Alerts No information available. Results No information available. Plan of Care No information available. Procedures No information available. Vital Signs No information available. Immunizations No information available. Advance Directives No information available.
== END 2023-08-23 23:59 | disposition home or self-care (01) ==
LOC: SC 13:22
PROVIDERS: Visit Provider Nurse Practitioner
DX: Z00.00 Encounter for general adult medical examination without abnormal findings (principal)

== ENCOUNTER 2023-09-06 09:40 | Outpatient (CLI) | payer MEDICARE, MEDICAID, SELFPAY ==
--- NOTE | 2023-09-06 09:41 | CA_ITS ---
APPROVED REPORT EXAM: Comprehensive 2D, Doppler, and color-flow Echocardiogram Custodial Laborer: Cynthia Duncan RDCS Ht: 5 ft 0 in Wt: 137lbs BSA: 1.59 BP: 142/78 mmHg Indications: MURMUR,CAD,HTN,DM,HLP 2D Dimensions LA Volume 67.80 mL LA Volume Index 42.64 mL/m2 (M/F) 16-34 M-Mode Dimensions RVDd 0.88 cm (0.9-2.6) LA Diam 4.11 cm (1.9-4.0) LVDd 5.98 cm (3.5-5.7) LVDs 4.14 cm (3.5-5.7) IVSd 0.94 cm (0.6-1.1) PWd 1.03 cm (0.6-1.1) EF (Teich) 57.50% FS 30.80% EDV (Teich) 178.60 mL ESV (Teich) 75.90 mL LV Diastology E Decel Time 183 (160-240 msec) E/A Ratio 1.5 Aortic Valve HERBERTH Index 1.21 cm2/m2 AoV Peak Сергей. 248.0 (50-130 cm/s) AO Peak GR. 24.50 mmHg AO Mean GR. 12.00 (<5 mmHg) AO VTI 48.4 (18-25 cm) HERBERTH (VTI) 1.97 (2.5-4.5 cm2) Mitral Valve MV E Max Сергей. 121.0 (40-130 cm/s) MV A Velocity 80.0 (40-130 cm/s) E/A Ratio 1.51 MV PHT 54.0 ms Tricuspid Valve TR P. Velocity 376.00 cm/s RAP Estimate 10.00 mmHg RVSP 66.60 mmHg Left Ventricle The left ventricle is normal size. The left ventricular systolic function is normal. The left ventricular ejection fraction is within the normal range. There is increased LV wall thickness. There is normal LV segmental wall motion. The left ventricular diastolic function is normal. LVEF is 60%. Right Ventricle Right ventricle is mildly dilated. The right ventricular systolic function is normal. Atria Left atrium is mildly dilated. Right atrium is moderately dilated. There is no Doppler evidence of interatria shunt. Aortic Valve The aortic valve is mildly thickened. There is aortic sclerosis, but no aortic valvular stenosis. Trace aortic regurgitation. Mitral Valve The mitral valve leaflets are mildly thickened. No evidence of mitral valve stenosis. Mild mitral regurgitation. Tricuspid Valve The tricuspid valve leaflets are thin and pliable. Mild tricuspid regurgitation. RVSP is 40-45 mmHg. Pulmonic Valve The pulmonary valve is normal in structure. Trace pulmonic regurgitation. Great Vessels The aortic root is normal in size. The ascending aorta is not well visualized. IVC is normal in size and collapses >50% with inspiration. Pericardium Trivial, circumferential pericardial effusion is present. No echo indications of tamponade. Other Information Study Quality: Fair Conclusion Normal biventricular systolic function. Mild RV dilation. Biatrial dilation. Aortic sclerosis, but no evidence of aortic stenosis. Mild MR, mild TR. Elevated RVSP 40-45 mmHg. Trivial, circumferential pericardial effusion. Of note, TTE in 2020 had denoted presence of moderate . Subsequent TTEs, including TTE from 09/24/2022 and this current study, demonstrate no evidence of aortic stenosis. Electronically signed by : Miranda Hoyt MD 09/10/2023 15:40:25
--- OUTSIDE RECORDS SUMMARY | 2023-09-06 09:42 | XMS_ITS | Clinical Summary ---
Author Name Unknown Address [address] [place] [address] [address] [place] [address] Phone Organization [facility] Address [address] [facility] [address] [place] [address] Phone Care Team Providers Care Gas Check Pad Maker Name Role Phone Unavailable Unavailable Conditions or Problems No information available. Medications No information available. Medications Administered No information available. Allergies, Adverse Reactions, Alerts No information available. Results No information available. Plan of Care No information available. Procedures No information available. Vital Signs No information available. Immunizations No information available. Advance Directives No information available.
== END 2023-09-06 23:59 | disposition home or self-care (01) ==
LOC: RT 09:41
PROVIDERS: PCP Family Medicine; Visit Provider Nurse Practitioner Family
DX: R01.1 Cardiac murmur, unspecified (principal); I11.0 Hypertensive heart disease with heart failure; I50.33 Acute on chronic diastolic (congestive) heart failure; I35.0 Nonrheumatic aortic (valve) stenosis; I27.20 Pulmonary hypertension, unspecified; I13.0 Hypertensive heart and chronic kidney disease with heart failure and stage 1 through stage 4 chronic kidney disease, or unspecified chronic kidney disease; E11.22 Type 2 diabetes mellitus with diabetic chronic kidney disease; N18.4 Chronic kidney disease, stage 4 (severe)
CPT/HCPCS: 93306

== ENCOUNTER 2024-02-15 10:29 | Outpatient (CLI) | payer MEDICARE, MEDICAID, SELFPAY ==
[2024-02-15 10:40] LABS: Microscopic, Urine URINE MICROSCOPIC (MICROSCOPIC)
[2024-02-15 11:20] LABS: Hematocrit 32.2 % (37.0-47.0); Hemoglobin 10.4 g/dL (12.2-16.2); Mean Corpuscular HGB Conc 32.3 g/dL (31.8-35.4); Mean Corpuscular Hemoglobin 30.4 pg (27.0-31.2); Platelet Count 228 K/mm3 (142-424); Red Blood Count 3.43 M/mm3 (4.20-5.40); Red Cell Distribution Width 17.1 % (11.5-17.5); White Blood Count 3.8 K/mm3 (4.8-10.8)
[2024-02-15 11:40] LABS: Albumin Level 3.9 g/dl (3.5-5.0); Blood Urea Nitrogen 28 mg/dl (7-17); Calcium 8.7 mg/dl (8.4-10.2); Carbon Dioxide 26 mmol/L (22.0-30.0); Chloride 105 mmol/L (98-107); Estimated Glomerular Filt Rate 27 ml/min (>60); GFR (African American) 33 ML/MIN (>60); Glucose 216 mg/dl (74-100); Phosphorous 4.3 mg/dl (2.5-4.5); Potassium 4.2 mmoL/L (3.5-5.1)
[2024-02-15 12:16] LABS: Anion Gap 13.2 mEq/L (5-15); Sodium 140 mmol/L (136-145)
[2024-02-15 12:39] LABS: Appearance,Urine CLEAR (Clear); Bilirubin,Urine Negative (Negative); Blood, Urine Negative (Negative); Color,Urine YELLOW (Yellow); Glucose,Urine (UA) Negative (Negative); Ketones,Urine Negative (Negative); Leukocyte Esterase,Urine Negative (Negative); Nitrate,Urine Negative (Negative); Protein,Urine Negative (Negative); Urobilinogen,Urine 0.2 EU/dl (0.2)
[2024-02-15 12:51] LABS: Bacteria,Urine Trace /lpf; Squamous Epithelial Cell,Urine Occasional #/hpf (0-5)
[2024-02-15 12:54] LABS: Microalbumin/Creatinine Ratio 62.2
[2024-02-15 12:56] LABS: Creatinine,Urine Random 18 mg/dL (Not Estab.)
--- OUTSIDE RECORDS SUMMARY | 2024-02-15 22:59 | XMS_ITS | Encounter Summary ---
Author Organization [facility] Address [address] [place] [address] Care Team Providers Care Planning Technician Name Role Phone Baljeet Hackett MD Primary Care Provider [phone] Encounter Details Date Type Department Care Team (Latest Contact Info) Description 02/08/2023 Travel Social History Tobacco Use Types Packs/Day Years Used Date Smoking Tobacco: Never Passive Smoke Exposure: Never Smokeless Tobacco: Never Alcohol Use Standard Drinks/Week Comments Never 0 (1 standard drink = 0.6 oz pur e alcohol) Comments Unknown Sex and Gender Information Value Date Recorded Sex Assigned at Not on file Legal Sex Female 8:28 PM EDT Gender Identity Not on file Sexual Orientation Not on file documented as of this encounter Plan of Treatment Upcoming Encounters Date Type Department Care Team (Late st Contact Info) Description 02/18/2024 9:40 AM EST Office Visit [facility] [address] [place] [address] Delilah Calderon, AMMONIUM NITRATE NEUTRALIZER [address] [address] documented as of this encounter Visit Diagnoses Not on filedocumented in this encounter Additional Health Concerns Assessment Noted Time A fall risk assessment has been complete d for the patient 02/08/2023 11:44 AM EST A Body Mass Index follow-up plan has been documented for the patient 02/08/2023 11:57 AM EST documented as of this encounter Care Teams Planning Technician Relationship Specialty Start Date End Date Baljeet Hackett MD [address] [place] [address] PCP - General 07/19/20 documented as of this encounter
--- OUTSIDE RECORDS SUMMARY | 2024-02-15 22:59 | XMS_ITS | Encounter Summary ---
Author Organization [facility] Address [address] [place] [address] Care Team Providers Care Toaster Operator Name Role Phone Baljeet Hackett MD Primary Care Provider [phone] Encounter Details Date Type Department Care Team (Latest Contact Info) Description 08/23/2023 Travel Social History Tobacco Use Types Packs/Day [...] Description 02/18/2024 9:40 AM EST Office Visit [facility] [address] [place] [address] Delilah Calderon, ADVISORY SOFTWARE ENGINEER [address] [address] documented as of this encounter Visit Diagnoses Not on filedocumented in this encounter Additional Health Concerns Assessment Noted Time A fall risk assessment has been complete d for the patient 02/08/2023 11:44 AM EST A Body Mass Index follow-up plan has been documented for the patient 08/23/2023 10:36 AM EDT documented as of this encounter Care Teams Toaster Operator Relationship Specialty Start Date End Date Baljeet Hackett MD [address] [place] [address] PCP - General 07/19/20 documented as of this encounter
--- OUTSIDE RECORDS SUMMARY | 2024-02-15 22:59 | XMS_ITS | Clinical Summary ---
Author Organization [facility] Address [address] [place] [address] Care Team Providers Care Prosthetics Assistant Name Role Phone Baljeet Hackett MD Primary Care Provider [phone] Allergies No known active allergies Medications glipiZIDE (Glucotrol) 10 MG tablet Take 10 mg by mouth 2 (two) times a day before meals. Active torsemide (Demadex) 10 MG tablet 0.5 tablets (5 mg) 1 (one) time each day. 2 Active hydrALAZINE (Apresoline) 50 MG tablet Take 1 tablet (50 mg) by mouth 3 (three) times a day. 2 Active carvedilol (Coreg) 25 MG tablet 2 (two) times a day with meals. 2 Active metFORMIN XR (Glucophage-XR) 500 MG 24 hr tablet 2 (two) times a day. 2 Active albuterol 108 (90 Base) MCG/ACT inhaler Inhale 2 puffs every 6 (six) hours if needed for wheezing. Active isosorbide dinitrate (Isordil) 20 MG tablet Take 1 tablet (20 mg) by mouth 3 (three) times a day. 2 Active lisinopril 20 MG tablet Take 0.5 tablets (10 mg) by mouth 2 (two) times a day. 2 Active amLODIPine (Norvasc) 10 MG tabletIndication s:Essential hypertension Take 1 tablet (10 mg) by mouth 1 (one) time each day. 90 tablet 3 3 Active Additional Information Patient not taking.Reported on 02/08/2023 atorvastatin (Lipitor) 40 MG tablet 3 Active amLODIPine (Norvasc) 10 MG tabletIndication s:Essential hypertension Take 1 tablet (10 mg) by mouth 1 (one) time each day. 90 tablet 3 3 Active Additional Information Patient not taking.Reported on 02/08/2023 Ferate 240 (27 Fe) MG tablet 3 Active Contour Next Test test strip USE 1 STRIP TO CHECK GLUCOSE ONCE DAILY 3 Active Microlet Lancets misc USE 1 LANCET TO CHECK GLUCOSE ONCE DAILY DIRECTED 3 Active famotidine (Pepcid) 40 MG tablet 4 Active levothyroxine (Synthroid, Levoxyl) 88 MCG tablet 4 Active Active Problems Problem Noted Date Diagnosed Date Vitamin D deficiency, unspecified 07/13/2023 Iron deficiency anemia, unspecified 07/13/2023 Hypothyroidism, unspecified 07/13/2023 Essential (primary) hypertension 07/13/2023 Type 2 diabetes mellitus without complications 0 07/06/2023 Immunizations Name Administration Dates Next Due Moderna COVID-19 Vaccine (Re d Cap) 12+ years 05/21/2021,05/15/2020,04/17/2020 Td (adult), 5 Lf tetanus tox oid, preservative free, adsorbed 10/28/2006 Tdap 12/01/2011 Family History Medical History Relation Name Comments Heart disease Father Cancer Mother Relation Name Status Comments Father Mother Social History Tobacco Use Types Packs/Day Years Used Date Smoking Tobacco: Never Passive Smoke Exposure: Never Smokeless Tobacco: Never Tobacco Cessation:Counseling Given: Not Answered Alcohol Use Standard Drinks/Week Comments Never 0 (1 standard drink = 0.6 oz pur e alcohol) Comments Unknown Sex and Gender Information Value Date Recorded Sex Assigned at Not on file Legal Sex Female 8:28 PM EDT Gender Identity Not on file Sexual Orientation Not on file Last Filed Vital Signs Vital Sign Reading Time Taken Comments Blood Pressure 120/59 08/23/2023 10:27 AM EDT Pulse 63 08/23/2023 10:27 AM EDT Temperature - - Respiratory Rate 16 02/08/2023 11:36 AM EST Oxygen Saturation 97% 08/23/2023 10:27 AM EDT Inhaled Oxygen Concentration - - Weight 61.7 kg (136 lb) 08/23/2023 10:27 AM EDT Height 149.9 cm (4' 11 ) 09/24/2022 10:57 AM EDT Body Mass Index 27.47 09/24/2022 10:57 AM EDT Plan of Treatment Upcoming Encounters Date Type Department Care Team (Late st Contact Info) Description 02/18/2024 9:40 AM EST Office Visit [facility] [address] [place] [address] Delilah Calderon, SHEEP RANCHER [address] [facility] [address] [place] [address] Health Maintenance Due Date Last Done Comments [facility]-Bone Density Scan 1947 [facility]-Depression Screening 1947 [facility]-Hepatitis C Screening 1945 [facility]-Medicare Annual Wellness (AWV) 1945 [facility]-/Child/Adol SDOH Screenings 1945 [facility]-Pneumococcal Vaccine: 65 + Years (1 of 2 - PCV) 1953 Diabetes: Dental Exam 1957 [facility]- SDOH Screenings 1965 [facility]-Adult SDOH Screenings 1965 [facility]-Zoster Vaccines (1 of 2) 1966 [facility]-Diabetes: Hemoglobin A1C 10/02/2014 04/04/2014 [facility]-DTaP,Tdap,and Td Vaccine s (2 - Td or Tdap) 11/30/2021 12/01/2011, 10/28/2006 [facility]-RSV Vaccine: 60+ Years o r (1 - 1-dose 75+ series) 2022 [id number] Vaccine ( - season) 2023 05/21/2021, 05/15/2020, 04/17/2020 [facility]-Influenza Vaccine (#1) 2023 [facility]-Obesity Intervention Completed 024, 02/08/2023 [facility]-HIB Vaccines Aged Out No longer e ligible based on patient's age to complete this topic [facility]-HPV Vaccines Aged Out No longer e ligible based on patient's age to complete this topic [facility]-Hepatitis A Vaccines Aged Out No longer eligible based on patient's age to complete this topic [facility]-IPV Vaccines Aged Out No longer e ligible based on patient's age to complete this topic [facility]-Rotavirus Vaccines Aged Out No lo nger eligible based on patient's age to complete this topic Procedures Procedure Name Priority Date/Time Associated Diagnosis Comments HEMOGLOBIN A1C Routine 04/04/2014 4:44 PM EST from Last 3 Months or Most Recently Relevant to Health Maintenance Results * (ABNORMAL) Hemoglobin A1c (04/04/2014 4:44 PM EST) Hemoglobin A1c 6.3(H) 4.7 - 6.0 % [facility] Comment: (NOTE) Glycohemoglobin, 0 years and up: ??4.7 - 6.0% . HbA1c assay performed by an ion-exchange chromatography method that is certified traceable to the DCCT. 04/04/2014 4:44 PM EST 04/04/2014 5:35 PM EST us Valentin Batista MD LAB BLOOD ORDERABLES Fin al Result [facility] from Last 3 Months or Most Recently Relevant to Health Maintenance Insurance MEDICARE [place]ICA[place] Care Teams Prosthetics Assistant Relationship Specialty Start Date End Date Baljeet Hackett MD [address] [place] [address] PCP - General 07/19/20
--- OUTSIDE RECORDS SUMMARY | 2024-02-15 22:59 | XMS_ITS | Encounter Summary ---
Author Organization Healthcare Address [address] [place] [address] Care Team Providers Care Shoe Puller Name Role Phone Baljeet Hackett MD Primary Care Provider [phone] Reason for Visit * Reason Comments Follow-up Encounter Details Date Type Department Care Team (Late st Contact Info) Description 08/23/2023 10:20 AM EDT Office Visit [facility] [address] [place] [address] Delilah Calderon, CERTIFIED NURSING ATTENDANT [address] [address] CKD (chronic kidney disease) stage 4, GFR 15-29 ml/min (CMS/HCC) (Primary Dx); Essential hypertension; Chronic kidney disease-mineral and bone disorder; Diabetes mellitus due to underlying condition with diabetic chronic kidney disease, unspecified CKD stage, unspecified whether assisted insulin use (CMS/[facility]) Social History Tobacco Use Types Packs/Day Years [...] on file documented as of this encounter Last Filed Vital Signs Vital Sign Reading Time Taken Comments Blood Pressure 120/59 08/23/2023 10:27 AM EDT Pulse 63 08/23/2023 10:27 AM EDT Temperature - - Respiratory Rate - - Oxygen Saturation 97% 08/23/2023 10:27 AM EDT Inhaled Oxygen Concentration - - Weight 61.7 kg (136 lb) 08/23/2023 10:27 AM EDT Height - - Body Mass Index 27.47 09/24/2022 10:57 AM EDT documented in this encounter Miscellaneous Notes * Progress Notes - Delilah Calderon APRN - 08/23/2023 10:20 AM EDT SUBJECTIVE Carol Cazares is a 78 y.o. female who presents for follow-up. Ms. Cazares is a 77 yo female ho DM2 and HTN here for follow up regarding CKD. She reports DM2 for about 10 years, no known retinopathy or neuropathy. No CAD, no PCI, h/o LHC. No CVA, no CHF. Recent serious illness at [facility] 01/26, pneumonia, required [facility]. No family h/o CKD. No serious infections. No kidney stones. She rarely uses Aleve. She reports compliance using a pill box for the week but has difficulty with understanding the appropriate timing of each medication. No dyspnea, no edema. Has followed Dr. Durham, pharmD closely since last visit, however has declined further since MD visits occur ~monthly. Current Antihypertensive Medication Regimen Current Antihypertensive Medication Regimen Clonidine 0.1mg once daily (stopped) Lisinopril 20mg 1/2 tab (10mg) twice a day Hydralazine 50 mg BID with food (10am, 6:30pm) Carvedilol 25 mg BID - takes with breakfast (10am) and dinner (6:30pm) Isosorbide 20 mg TID - takes at 9am, 3pm, and 8pm Torsemide 10mg 1/2 tab (5mg) daily at 10am Amlodipine 10 mg QAM - (no longer taking) Feels fine, BP at home ~130s/60s No edema Notes she is feeling ok, no concerns. Appetite good, no edema OBJECTIVE Vitals: 08/23/23 1027 BP: 120/59 Pulse: 63 SpO2: 97% PHYSICAL EXAMINATION CONSTITUTIONAL: Conversant, well developed, NAD. EYES: No proptosis or lid-lag. EARS: Normal hearing. RESPIRATORY: Normal respiratory effort. CARDIOVASCULAR: No peripheral edema. EXTREMITIES: No edema. No cyanosis. SKIN: No rash. No lesions. No ulcers. MUSCULOSKELETAL: Normal gait and station. No digital cyanosis. NEURO: Cranial nerves II-XII grossly intact. LAB RESULTS 08/17/23, Na 138, K 4.2, Co2 26, BUN 22, Cr 1.7 egfr 29, Calcium 8.7, albumin 3.8, PO4 4.1 Hgb 10.0 ASSESSMENT/PLAN 1. CKD4, most recent eGFR 29, DM2/HTN,, intermittent NSAIDS all risks 2. HTN, 3. Vitd deficiency, resolved, 4. DM2, on metformin, ok to continue for now -- Patient's BP at goal today. BP at home at goal. BP most recent PCP office good per patient. Encouraged her to keep BP log and return to clinic with her at next visit. Risks of disease progression with uncontrolled HTN reviewed. Patient unclear of most recent A1c, but notes no concern noted from PCP. documented in this encounter Plan of Treatment Upcoming Encounters Date Type Department Care Team (Late st Contact Info) Description 02/18/2024 9:40 AM EST Office Visit [facility] [address] [facility] [address] [place] [address] Delilah Calderon APRN [address] [address] Scheduled Orders Name Type Priority Associated Diagnoses Orde r Schedule Renal Function Panel, Plasma Lab Routine CKD (chronic kidney disease) stage 4, GFR 15-29 ml/min (CMS/HCC) Expected: 08/23/2023 (Approximate), Expires: 02/21/2025 CBC W/O Differential Lab Routine CKD (chronic kidney disease) stage 4, GFR 15-29 ml/min (CMS/HCC) Expected: 08/23/2023 (Approximate), Expires: 02/21/2025 Urinalysis with reflex microscopic (Culture NOT Included) Lab Routine CKD (chronic kidney disease) stage 4, GFR 15-29 ml/min (CMS/HCC) Expected: 08/23/2023 (Approximate), Expires: 02/21/2025 Creatinine, Random, Urine Lab Routine CKD (chronic kidney disease) stage 4, GFR 15-29 ml/min (CMS/HCC) Expected: 08/23/2023 (Approximate), Expires: 02/21/2025 Albumin-creatinine ratio, urine, random Lab Routine CKD (chronic kidney disease) stage 4, GFR 15-29 ml/min (CMS/HCC) Expected: 08/23/2023 (Approximate), Expires: 02/21/2025 Protein, Random, Urine with Creatinine Lab Routine CKD (chronic kidney disease) stage 4, GFR 15-29 ml/min (CMS/HCC) Expected: 08/23/2023 (Approximate), Expires: 02/21/2025 documented as of this encounter Visit Diagnoses Diagnosis CKD (chronic kidney disease) stage 4, GFR 15-29 ml/min (CMS/HCC)- Primary Chronic kidney disease, Stage IV (severe) Essential hypertension Unspecified essential hypertension 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
--- OUTSIDE RECORDS SUMMARY | 2024-02-15 22:59 | XMS_ITS | Encounter Summary ---
Author Organization Healthcare Address [address] [place] [address] Care Team Providers Care Replanting Machine Crew Name Role Phone Baljeet Hackett MD Primary Care Provider [phone] Encounter Details Date Type Department Care Team (Late st Contact Info) Description 02/08/2023 11:40 AM EST Office Visit [facility] [address] [place] [address] Delilah Calderon, ADMIN DIR [address] [address] CKD (chronic kidney disease) stage 4, GFR 15-29 ml/min (CMS/HCC) (Primary Dx); Essential hypertension; Chronic kidney disease-mineral and bone disorder; Diabetes mellitus due to underlying condition with diabetic chronic kidney disease, unspecified CKD stage, unspecified whether manager long term care insulin use (CMS/HCC) Social History Tobacco Use Types Packs/Day Years [...] Sign Reading Time Taken Comments Blood Pressure 150/61 02/08/2023 11:36 AM EST Pulse 74 02/08/2023 11:36 AM EST Temperature - - Respiratory Rate 16 02/08/2023 11:36 AM EST Oxygen Saturation 100% 02/08/2023 11:36 AM EST Inhaled Oxygen Concentration - - Weight 65.3 kg (144 lb) 02/08/2023 11:36 AM EST Height - - Body Mass Index 29.08 09/24/2022 10:57 AM EDT documented in this encounter Miscellaneous Notes * Progress Notes - YumikoDelilahELLA - 02/08/2023 11:40 AM EST SUBJECTIVE Carol Cazares is a 77 y.o. female who presents for follow-up. Ms. Cazares is a 77 yo female ho DM2 and HTN here for follow up regarding CKD. She reports DM2 for about 10 years, no known retinopathy or neuropathy. No CAD, no PCI, h/o LHC. No CVA, no CHF. Recent serious illness at [facility] 01/26, pneumonia, required [facility]. No family h/o [...] at 10am Amlodipine 10 mg QAM - takes at 10am Feels fine, BP at home ~130s/60s No edema Notes she is feeling ok, no concerns. Appetite good, no edema OBJECTIVE Vitals: 02/08/23 1136 BP: (!) 150/61 Pulse: 74 Resp: 16 SpO2: 100% PHYSICAL EXAMINATION CONSTITUTIONAL: Conversant, well developed, NAD. EYES: No proptosis or lid-lag. EARS: Normal hearing. RESPIRATORY: Normal respiratory effort. CARDIOVASCULAR: No peripheral edema. EXTREMITIES: No edema. No cyanosis. SKIN: No rash. No lesions. No ulcers. MUSCULOSKELETAL: Normal gait and station. No digital cyanosis. NEURO: Cranial nerves II-XII grossly intact. LAB RESULTS 08/04/22, Vit D 54.2, Na 140, K 4.2, Co2 25, BUN 28, Cr 1.6 egfr 31, Calcium 8.4, albumin 3.6, PO4 4.4 Hgb 10.9 ASSESSMENT/PLAN 1. CKD4, most recent eGFR 31, DM2/HTN,, intermittent NSAIDS all risks 2. HTN, improved today, following BP at home closely, continue with Dr. Durham phone visits 3. Vitd deficiency, resolved, now hypervitaminosis, hold supplement 4. DM2, on metformin, ok to continue for now -- Patient's BP elevated today, notes she took her medications prior to leaving her house this morning. BP at home at goal. BP most recent PCP office good per patient. Encouraged her to keep BP log and return to clinic with her at next visit. Will have labs today, will call and discuss results as indicated. Risks of disease progression with uncontrolled HTN reviewed. Patient unclear of most recent A1c, but notes no concern noted from PCP. documented in this encounter Plan of Treatment Upcoming Encounters Date Type Department Care Team (Late st Contact Info) Description 02/18/2024 9:40 AM EST Office Visit [place] [id number] [facility] [address] [place] [address] Delilah Calderon APRN [address] [address] documented as of this encounter Visit Diagnoses Diagnosis CKD (chronic kidney disease) stage 4, GFR 15-29 ml/min ([facility])- Primary Chronic kidney disease, Stage IV (severe) Essential hypertension Unspecified essential hypertension 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, unspecified CKD stage, unspecified whether half-way insulin use ([facility]) documented in this encounter Additional Health Concerns Assessment Noted Time A fall risk assessment has been complete d for the patient 02/08/2023 11:44 AM EST A Body Mass Index follow-up plan has been documented for the patient 02/08/2023 11:57 AM EST documented as of this encounter Care Teams Replanting Machine Crew Relationship Specialty Start Date End Date Baljeet Hackett MD [address] [place] [address] PCP - General 07/19/20 documented as of this encounter
--- OUTSIDE RECORDS SUMMARY | 2024-02-15 22:59 | XMS_ITS | Encounter Summary ---
Author Organization Healthcare Address [address] [place] [address] Care Team Providers Care Seam Stay Stitcher Name Role Phone Baljeet Hackett MD Primary Care Provider [phone] Encounter Details Date Type Department Care Team (Late st Contact Info) Description 07/15/2023 Telephone [facility] [address] [address] Meri Wood, RN [facility] Social History Tobacco Use Types Packs/Day Years [...] on file documented as of this encounter Miscellaneous Notes * Telephone Encounter - Meri Wood LPN - 07/15/2023 9:53 AM EDT Mailed out appointment reminder and lab orders. documented in this encounter Plan of Treatment Upcoming Encounters Date Type Department Care Team (Late st Contact Info) Description 02/18/2024 9:40 AM EST Office Visit [facility] [address] [address] Delilah Calderon, [employer]LE [employer] CONSULTANT [address] [address] documented as of this encounter Visit Diagnoses Not on filedocumented in this encounter Additional Health Concerns Assessment Noted Time A fall risk assessment has been complete d for the patient 02/08/2023 11:44 AM EST A Body Mass Index follow-up plan has been documented for the patient 02/08/2023 11:57 AM EST documented as of this encounter Care Teams Seam Stay Stitcher Relationship Specialty Start Date End Date Baljeet Hackett MD [address] [place] [address] PCP - General 07/19/20 documented as of this encounter
--- OUTSIDE RECORDS SUMMARY | 2024-02-15 23:00 | XMS_ITS | Encounter Summary ---
Author Organization [facility] Address [address] [place] [address] Care Team Providers Care Purchase Analyst Name Role Phone Baljeet Hackett MD Primary Care Provider [phone] Reason for Referral * Diagnostic Imaging (Routine) - Closed Specialty Diagnoses / Procedures Referred By Luis M castellanos Referred To Contact Diagnoses Anginal equivalent Procedures Stress Test With Myocardial Perfusion One Day Jg Ferreira PA [facility] [address] [place] [address] Phone: tel: Referral ID Status Reason Start Date Expiration Date Visits Re quested Visits Authorized [id number] Closed 03/31/2016 03/31/2017 1 1 Reason for Visit * Reason Comments Shortness of Breath Encounter Details Date Type Department Care Team (Late st Contact Info) Description 03/31/2016 1:00 PM EST Consult [facility] [address] [place] [address] Sylvie Chairez MD [address] [facility] [address] [facility] [address] [place] [address] Anginal equivalent (Primary Dx); Essential hypertension; Mixed hyperlipidemia Social History Tobacco Use Types Packs/Day Years Used Date Smoking Tobacco: Never Smokeless Tobacco: Never Alcohol Use Standard Drinks/Week Comments No 0 (1 standard drink = 0.6 oz pur e alcohol) Comments Unknown Sex and Gender Information Value Date Recorded Sex Assigned at Not on file Legal Sex Female 11:59 AM EDT Gender Identity Not on file Sexual Orientation Not on file documented as of this encounter Last Filed Vital Signs Vital Sign Reading Time Taken Comments Blood Pressure 148/100 03/31/2016 12:54 PM EST Pulse 84 03/31/2016 12:48 PM EST Temperature - - Respiratory Rate - - Oxygen Saturation - - Inhaled Oxygen Concentration - - Weight 65.8 kg (145 lb) 03/31/2016 12:48 PM EST Height 154.9 cm (5' 1 ) 03/31/2016 12:48 PM EST Body Mass Index 27.4 03/31/2016 12:48 PM EST documented in this encounter Progress Notes * Jg Ferreira PA - 03/31/2016 1:00 PM ESTAssociated Order(s): ECG 12-LEAD [place] [facility] Consultation H&P Carol [place] 1945 VISIT DATE: 03/31/2016 PCP: Baljeet Hackett MD [address] [facility] [address] IDENTIFICATION: A 71 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 CC: Chief Complaint Patient presents with ??? Shortness of Breath PROBLEM LIST: 1. Chest tightness/dyspnea on exertion A. 2004- [facility] x 2, [facility] and [facility], data deficient reportedly normal 2. 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 2015 A1c >7% 3. HTN 4. HLD A. 01/21:163/139/51/84 5. Hypothyroidism secondary to thyroidectomy 2014 6. Iron deficiency anemia 7. Hypokalemia with supplement Past Surgical History Procedure Laterality Date ??? Thyroidectomy ??? Colonoscopy ??? Cardiac catheterization Allergies No Known Allergies Current Medications Current Outpatient Prescriptions: ??? aspirin 81 MG EC tablet, Take 81 mg by mouth Daily., Disp: , Rfl: ??? CloNIDine (CATAPRES) 0.1 MG tablet, 0.1 mg 2 (Two) Times a Day., Disp: , Rfl: 1 ??? glipiZIDE (GLUCOTROL) 10 MG 24 hr tablet, 10 mg 2 (Two) Times a Day., Disp: , Rfl: 0 ??? hydrochlorothiazide (HYDRODIURIL) 25 MG tablet, Take 25 mg by mouth Daily., Disp: , Rfl: 1 ??? IRON PO, Take by mouth 2 (Two) Times a Day., Disp: , Rfl: ??? levothyroxine (SYNTHROID, LEVOTHROID) 100 MCG tablet, Take 100 mcg by mouth Daily., Disp: , Rfl: 0 ??? lisinopril (PRINIVIL,ZESTRIL) 20 MG tablet, Take 20 mg by mouth Daily., Disp: , Rfl: 1 ??? metFORMIN (GLUCOPHAGE) 500 MG tablet, Take 500 mg by mouth 2 (Two) Times a Day With Meals., Disp: , Rfl: 1 ??? potassium chloride (KAYCIEL) 20 MEQ/15ML (10%) solution, 20 mEq Daily., Disp: , Rfl: 1 ??? simvastatin (ZOCOR) 10 MG tablet, Take 10 mg by mouth Every Night., Disp: , Rfl: 0 ??? verapamil (CALAN) 120 MG tablet, Take 120 mg by mouth 2 (Two) Times a Day., Disp: , Rfl: 1 History of Present Illness HPI Patient is a pleasant 71-year-old female with history of dyslipidemia and type 2 diabetes who presents in consultation at the recommendation of Dr. Hackett. She's been having chest tightness nonradiating substernal in location and associated with dyspnea on exertion. No associated nausea or diaphoresis. This is been ongoing for the last 3 months and occurs when walking uphill to pay her rent. Symptoms can last between 5 and 10 minutes before she can fully recover. She has had ischemic evaluationthe past with reportedly normal coronaries in between the years of 2004 and 2007. She has no recentchange in her health history of pneumonia or change in medication dosages. She does not recall her last hemoglobin A1c but knows that it was greater than 7%. She denies orthopnea, PND, palpitations, lower extremity edema. She denies history of CHF, DVT/PE, CVA/TIA, or rheumatic fever. Pt denies any chest pain, dyspnea, dyspnea on exertion, orthopnea, PND, palpitations, lower extremity edema. ROS Review of Systems Constitution: Positive for weakness and malaise/fatigue. Cardiovascular: Positive for chest pain and dyspnea on exertion. All other systems reviewed and are negative. SOCIAL HX Social History Social History ??? Marital status: Unknown Spouse name: N/A ??? Number of children: N/A ??? Years of education: N/A Occupational History ??? Not on file. Social History Main Topics ??? Smoking status: Never Smoker ??? Smokeless tobacco: Never Used ??? Alcohol use No ??? Drug use: No ??? Sexual activity: Defer Other Topics Concern ??? Not on file Social History Narrative ??? No narrative on file FAMILY HX Family History Problem Relation Age of Onset ??? Cancer Mother ??? Heart attack Father Vitals: 03/31/16 1248 03/31/16 1254 BP: 154/100 148/100 BP Location: Right arm Left arm Patient Position: Sitting Sitting Pulse: 84 Weight: 145 lb (65.8 kg) Height: 61 (154.9 cm) PHYSICAL EXAMINATION: Physical Exam Constitutional: She is oriented to person, place, and time. She appears well- developed and well-nourished. No distress. HENT: Head: Normocephalic and atraumatic. Nose: Nose normal. Mouth/Throat: Uvula is midline, oropharynx is clear and moist and mucous membranes are normal. Eyes: Conjunctivae and EOM are normal. Pupils are equal, round, and reactive to light. No scleral icterus. Exophthalmos present Neck: Normal range of motion. Neck supple. No hepatojugular reflux and no JVD present. Carotid bruit is not present. No tracheal deviation present. No thyromegaly present. Cardiovascular: Normal rate, regular rhythm, S1 normal, S2 normal, intact distal pulses and normal pulses. PMI is not displaced. Exam reveals no gallop, no distant heart sounds, no friction rub, no midsystolic click and no opening snap. No murmur heard. Pulses: Radial pulses are 2+ on the right side, and 2+ on the left side. Dorsalis pedis pulses are 2+ on the right side, and 2+ on the left side. Posterior tibial pulses are 2+ on the right side, and 2+ on the left side. Pulmonary/Chest: Effort normal and breath sounds normal. She has no wheezes. She has no rhonchi. She has no rales. Abdominal: Soft. Bowel sounds are normal. She exhibits no mass. There is no tenderness. There is noguarding. Musculoskeletal: She exhibits no edema or tenderness. Lymphadenopathy: She has no cervical adenopathy. Neurological: She is alert and oriented to person, place, and time. Skin: Skin is warm, dry and intact. No rash noted. No cyanosis or erythema. Nails show no clubbing. Psychiatric: She has a normal mood and affect. Her behavior is normal. Nursing note and vitals reviewed. Diagnostic Data: ECG 12 Lead Date/Time: 03/31/2016 2:47 PM Performed by: SYLVIE CHAIREZ Authorized by: SYLVIE CHAIREZ Rhythm: sinus rhythm Clinical impression: normal ECG outside laboratories reviewed and lipid panel as stated above. ASSESSMENT: Diagnosis Plan 1. Anginal equivalent Stress Test With Myocardial Perfusion One Day 2. Essential hypertension 3. Mixed hyperlipidemia PLAN: 1. Anginal equivalent chest pain and dyspnea on exertion in elderly female with multiple risk factors. Normal ECG today in office. Transportation issues to [place] therefore we will set her up for a [facility] stress test at [facility]. Once we receive results we will have further recommendations. 2. Elevated in office today with a record review showing normal pressures at her primary care provider's office visit recently. Continue to monitor and encouraged a low sodium diet and to purchase blood pressure monitor for home monitoring. Continue current regimen otherwise. 3. Elevated triglycerides due to uncontrolled diabetes. I had discussion with her about the importance of dietary discretion of carbohydrates. Continue statin therapy otherwise as her LDL is at goal of less than 100. Follow-up with us in 6 months after stress testing. Scribed for ySlvie Chairez MD by ANA Pascual. 03/31/2016 2:52 PM I, Sylvie Chairez MD, personally performed the services described in this documentation as scribed by the above named individual in my presence, and it is both accurate and complete. 04/02/2016 9:34AM Sylvie Chairez MD, FACC documented in this encounter Plan of Treatment Scheduled Orders Name Type Priority Associated Diagnoses Orde r Schedule Stress Test With Myocardial Perfusion One Day Cardiac Services Routine Anginal equivalent Ordered: 03/31/2016 documented as of this encounter Procedures Procedure Name Priority Date/Time Associated Diagnosis Comments ECG 12-LEAD Routine 04/02/2016 9:34 AM EST Anginal equivalent SCANNED EKG 03/31/2016 documented in this encounter Results * ECG 12-LEAD (04/02/2016 9:34 AM EST) Narrative Sylvie Chairez MD - 04/02/2016 9:34 AM EST Sylvie Chairez MD ? 04/02/2016 ??9:34 AM ECG 12 Lead Date/Time: 03/31/2016 2:47 PM Performed by: SYLVIE CHAIREZ Authorized by: SYLVIE CHAIREZ Rhythm: sinus rhythm Clinical impression: normal ECG us Sylvie Chairez MD ECG ORDERABLES Edited Result - Final * SCANNED EKG (03/31/2016) us Sylvie Chairez MD ECG ORDERABLES Final Result documented in this encounter Visit Diagnoses Diagnosis Anginal equivalent- Primary Essential hypertension Unspecified essential hypertension Mixed hyperlipidemia documented in this encounter Care Teams Purchase Analyst Relationship Specialty Start Date End Date Baljeet Hackett MD [address] [place] [address] PCP - General Family Medicine 02/06/16 documented as of this encounter
--- OUTSIDE RECORDS SUMMARY | 2024-02-15 23:00 | XMS_ITS | Encounter Summary ---
Author Organization [facility] Address [address] [place] [id number] Care Team Providers Care Top Closer Name Role Phone Baljeet Hackett MD Primary Care Provider [phone] Encounter Details Date Type Department Care Team (Late st Contact Info) Description 05/26/2016 External CPT II [facility] Social History Tobacco Use Types Packs/Day Years [...] as of this encounter Plan of Treatment Not on file documented as of this encounter Visit Diagnoses Not on filedocumented in this encounter Care Teams Top Closer Relationship Specialty Start Date End Date Baljeet Hackett MD [address] [place] [id number] PCP - General Family Medicine 02/06/16 documented as of this encounter
--- OUTSIDE RECORDS SUMMARY | 2024-02-15 23:00 | XMS_ITS | Encounter Summary ---
Author Organization [facility] Address [address] [place] [address] Care Team Providers Care Waste Recycler Name Role Phone Baljeet Hackett MD Primary Care Provider [phone] Encounter Details Date Type Department Care Team (Late st Contact Info) Description 04/04/2014 External CPT II TIME STUDY TECHNICIAN - [facility] Social History Tobacco Use Types Packs/Day Years Used Date Smoking Tobacco: Never Assessed Comments Unknown Sex and Gender Information Value Date Recorded Sex Assigned at Not on file Legal Sex Female 11:59 AM EDT Gender Identity Not on file Sexual Orientation Not on file documented as of this encounter Plan of Treatment Not on file documented as of this encounter Visit Diagnoses Not on filedocumented in this encounter Care Teams Waste Recycler Relationship Specialty Start Date End Date Baljeet Hackett MD [address] [place] [address] PCP - General Family Medicine 02/06/16 documented as of this encounter
--- OUTSIDE RECORDS SUMMARY | 2024-02-15 23:00 | XMS_ITS | Referral Summary ---
Author Organization [facility] Address [address] [place] [address] Care Team Providers Care Program Director Air Talent Name Role Phone Unavailable Primary Care Provider Unavailabl e Social History Tobacco Use Types Packs/Day Years Used Date Smoking Tobacco: Never Assessed Comments Unknown Sex and Gender Information Value Date Recorded Sex Assigned at Female 09/02/2021 8:59 PM CDT Legal Sex Female 8:59 PM CDT Gender Identity Female 09/02/2021 8:59 PM CDT Sexual Orientation Not on file Plan of Treatment Not on file
--- OUTSIDE RECORDS SUMMARY | 2024-02-15 23:00 | XMS_ITS | Encounter Summary ---
Author Organization [facility] Address [address] [place] [address] Care Team Providers Care Stamping Die Maker Name Role Phone Baljeet Hackett MD Primary Care Provider [phone] Encounter Details Date Type Department Care Team (Late st Contact Info) Description 10/30/2015 External CPT II DIRECTOR WRITING - [facility] Social History Tobacco Use [...] on filedocumented in this encounter Care Teams Stamping Die Maker Relationship Specialty Start Date End Date Baljeet Hackett MD [address] [place] [address] PCP - General Family Medicine 02/06/16 documented as of this encounter
--- OUTSIDE RECORDS SUMMARY | 2024-02-15 23:00 | XMS_ITS | Encounter Summary ---
Author Organization [facility] Address [address] [place] [address] Care Team Providers Care Food Checkers And Cashiers Supervisor Name Role Phone Baljeet Hackett MD Primary Care Provider [phone] Reason for Visit * Reason Comments Follow-up anginal equivalent Hypertension Encounter Details Date Type Department Care Team (Late st Contact Info) Description 09/29/2016 2:45 PM EDT Office Visit [facility] [address] [facility] [address] [place] [phone] Jayson Chairez MD [facility] [place] [address] Essential hypertension (Primary Dx); Mixed hyperlipidemia; Type 2 diabetes mellitus with hyperglycemia, without long-term current use of insulin Social History Tobacco Use Types Packs/Day Years [...] Sign Reading Time Taken Comments Blood Pressure 180/81 09/29/2016 2:49 PM EDT Pulse 88 09/29/2016 2:49 PM EDT Temperature - - Respiratory Rate - - Oxygen Saturation - - Inhaled Oxygen Concentration - - Weight 68.5 kg (151 lb) 09/29/2016 2:49 PM EDT Height 152.4 cm (5') 09/29/2016 2:49 PM EDT Body Mass Index 29.49 09/29/2016 2:49 PM EDT documented in this encounter Progress Notes * Elizabeth Calderon PA - 09/29/2016 2:45 PM EDT [facility] Office Progress Note Carol Cazares 1945 Visit Date: 09/29/2016 PCP: Baljeet Hackett MD [address] [place] [facility] [place] [address] IDENTIFICATION: 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 Follow-up ??? anginal equivalent ??? Hypertension PROBLEM LIST: 1. Chest tightness/dyspnea on exertion 1. 2004- [facility] x 2, [facility] and [facility], data deficient reportedly normal 2. 04/09/16 [facility]: Normal EKG portion, no evidence of reversible ischemia, fixed defect seen anteriorly which is likely due to breast attenuation, computer derived EF 43% with left ventricular global hypokinesis, LV dilation with stress and rest 2. 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 2015 A1c >7% 3. HTN 4. HLD 1. 01/21:163/139/51/84 5. Hypothyroidism secondary to thyroidectomy 2014 6. Iron deficiency anemia 7. Hypokalemia with supplement Allergies No Known Allergies Current Medications Current [...] levothyroxine (SYNTHROID, LEVOTHROID) 100 MCG tablet, Take 125 mcg by mouth Daily., Disp: , Rfl: [...] , Rfl: 1 History of Present Illness Patient here to follow-up. Chest pain at last visit has subsided and patient had a negative stress test. Still having poor control of diabetes, finding it difficult to limit carbohydrates. Pt denies any chest pain, dyspnea, dyspnea on exertion, orthopnea, PND, palpitations, lower extremity edema, or claudication. ROS: All systems have been reviewed and are negative with the exception of those mentioned in the HPI. OBJECTIVE: Vitals: 09/29/16 1449 BP: 180/81 BP Location: Right arm Patient Position: Sitting Pulse: 88 Weight: 151 lb (68.5 kg) Height: 60 (152.4 cm) 140/78 upon recheck Physical Exam Constitutional: She is oriented to person, place, and time. She appears well- developed and well-nourished. No distress. Neck: Neck supple. No JVD present. Cardiovascular: Normal rate, regular rhythm, normal heart sounds and intact distal pulses. No murmur heard. Pulses: Radial pulses are 2+ on the right side, and 2+ on the left side. Dorsalis pedis pulses are 2+ on the right side, and 2+ on the left side. Posterior tibial pulses are 2+ on the right side, and 2+ on the left side. Pulmonary/Chest: Effort normal and breath sounds normal. She has no wheezes. She has no rales. Abdominal: Soft. Bowel sounds are normal. There is no tenderness. There is no guarding. Musculoskeletal: She exhibits no edema or tenderness. Neurological: She is alert and oriented to person, place, and time. Nursing note and vitals reviewed. Diagnostic Data: Procedures ASSESSMENT: Diagnosis Plan 1. Essential hypertension 2. Mixed hyperlipidemia 3. Type 2 diabetes mellitus with hyperglycemia, without long-term current use of insulin PLAN: 1. Lexiscan Cardiolite negative for reversible ischemia, patient's chest pain symptoms have also subsided. BP was elevated upon arrival but came down significantly upon recheck. Patient states that she checks her blood pressure at the grocery store or even other doctors offices it is better. Continue current antihypertensives 2. Continue statin therapy with simvastatin 3. Poor diabetic control, patient counseled on the importance of portion control and limiting all carbohydrates suite, breads, pasta, and potatoes, corn. Baljeet Hackett MD, thank you for referring Ms. Cazares for evaluation. I have forwarded my electronically generated recommendations to you for review. Please do not hesitate to call with any questions. Scribed for Jayson Chairez MD by Elizabeth Calderon PA-C. 09/29/2016 3:22 PM I, Jayson Chairez MD, personally performed the services described in this documentation as scribed by the above named individual in my presence, and it is both accurate and complete. 09/29/2016 3:32PM Jayson Chairez MD, FACC documented in this encounter Plan of Treatment Not on file documented as of this encounter Visit Diagnoses Diagnosis Essential hypertension- Primary Unspecified essential hypertension Mixed hyperlipidemia Type 2 diabetes mellitus with hyperglycemia, without long-term current use of insulin documented in this encounter Care Teams Food Checkers And Cashiers Supervisor Relationship Specialty Start Date End Date Baljeet Hackett MD [address] [place] [address] PCP - General Family Medicine 02/06/16 documented as of this encounter
--- OUTSIDE RECORDS SUMMARY | 2024-02-15 23:00 | XMS_ITS | Encounter Summary ---
Author Organization [facility] Address [address] [place] [address] Care Team Providers Care Hose Maker Name Role Phone Baljeet Hackett MD Primary Care Provider [phone] Encounter Details Date Type Department Care Team (Late st Contact Info) Description 07/31/2015 External CPT II CONTACT LENS BLOCKER AND CUTTER - [facility] Social History Tobacco Use [...] on filedocumented in this encounter Care Teams Hose Maker Relationship Specialty Start Date End Date Baljeet Hackett MD [address] [place] [address] PCP - General Family Medicine 02/06/16 documented as of this encounter
--- OUTSIDE RECORDS SUMMARY | 2024-02-15 23:00 | XMS_ITS | Encounter Summary ---
Author Organization [facility] Address [address] [place] [address] Care Team Providers Care Anesthesiology Technologist Name Role Phone Baljeet Hackett MD Primary Care Provider [phone] Encounter Details Date Type Department Care Team (Late st Contact Info) Description 11/10/2017 External CPT II MED SURG RN - [facility] Social History Tobacco Use [...] on filedocumented in this encounter Care Teams Anesthesiology Technologist Relationship Specialty Start Date End Date Baljeet Hackett MD [address] [place] [id number] PCP - General Family Medicine 02/06/16 documented as of this encounter
--- OUTSIDE RECORDS SUMMARY | 2024-02-15 23:00 | XMS_ITS | Encounter Summary ---
Author Organization [facility] Address [address] [place] [address] Care Team Providers Care Campus Rep Name Role Phone Baljeet Hackett MD Primary Care Provider [phone] Encounter Details Date Type Department Care Team (Latest Contact Info) Description 06/09/2021 Travel Social History Tobacco Use Types Packs/Day Years Used Date Smoking Tobacco: Never Smokeless Tobacco: Never Alcohol Use Standard Drinks/Week Comments Never 0 (1 standard drink = 0.6 oz pur e alcohol) Comments Unknown Sex and Gender Information Value Date Recorded Sex Assigned at Not on file Legal Sex Female 8:28 PM EDT Gender Identity Not on file Sexual Orientation Not on file COVID-19 Exposure Response Date Recorded In the last month, have you been in contact with someone who was confirmed or suspected to have Coronavirus / COVID-19? No / Unsure 06/09/2021 1:32 PM EDT documented as of this encounter Plan of Treatment Upcoming Encounters Date Type Department Care Team (Late st Contact Info) Description 02/18/2024 9:40 AM EST Office Visit [facility] [address] [place] [address] Delilah Calderon, SAP SD ANALYST [address] [facility] [address] [place] [address] documented as of this encounter Visit Diagnoses Not on filedocumented in this encounter Care Teams Campus Rep Relationship Specialty Start Date End Date Baljeet Hackett MD [address] [place] [address] PCP - General 07/19/20 documented as of this encounter
--- OUTSIDE RECORDS SUMMARY | 2024-02-15 23:00 | XMS_ITS | Encounter Summary ---
Author Organization [facility] Address [address] [place] [address] Care Team Providers Care Software Support Representative Name Role Phone Baljeet Hackett MD Primary Care Provider [phone] Reason for Visit * Reason Comments Follow-up Encounter Details Date Type Department Care Team ([facility] st Contact Info) Description 02/09/2022 11:00 AM EST Office Visit [facility] [address] [place] [address] Robert Hogue MD [address] [address] CKD (chronic kidney disease) stage 4, GFR 15-29 ml/min ([facility]) (Primary Dx); Essential hypertension; Hypervitaminosis D Social History Tobacco Use Types Packs/Day Years Used Date Smoking Tobacco: Never Smokeless Tobacco: Never Tobacco Cessation:Counseling Given: [...] Exposure Response Date Recorded In the last 10 days, have yo u been in contact with someone who was confirmed or suspected to have Coronavirus/COVID-19? No / Unsure 02/09/2022 10:43 AM EST documented as of this encounter Last Filed Vital Signs Vital Sign Reading Time Taken Comments Blood Pressure 121/44 02/09/2022 10:57 AM EST Pulse 66 02/09/2022 10:57 AM EST Temperature - - Respiratory Rate - - Oxygen Saturation - - Inhaled Oxygen Concentration - - Weight 68.4 kg (150 lb 12.8 oz) 022 10:57 AM EST Height - - Body Mass Index - - documented in this encounter Miscellaneous Notes * Progress Notes - Robert Hogue MD - 02/09/2022 11:00 AM EST SUBJECTIVE Carol Cazares is a 76 y.o. female who presents for follow-up. Ms. Cazares is a 76 yo female ho DM2 and HTN here for follow up regarding CKD. She reports DM2 for about 10 years, no known retinopathy or neuropathy. No CAD, no PCI, h/o LHC. No CVA, no CHF. Recent serious illness at [facility] 01/26, pneumonia, required [facility]. No family h/o CKD. No serious infections. No kidney stones. She rarely uses Aleve. She reports compliance using a pill box for the week but has difficulty with understanding the appropriate timing of each medication. No dyspnea, no edema. 06/27 She did not bring BP cuff with her today, not checking at home She did bring meds, some duplicates noted Got renal imaging but not labs, will get after clinic 02/[address] Durham, pharmD closely since last visit Current Antihypertensive Medication Regimen Hydralazine 50 mg BID with food (10am, 6:30pm) Carvedilol 25 mg BID - takes with breakfast (10am) and dinner (6:30pm) Isosorbide 20 mg TID - takes at 9am, 3pm, and 8pm Torsemide 5 mg QAM (1/2 10mg tab) - takes at 10am Amlodipine 10 mg QAM - takes at 10am Clonidine 0.1 mg BID - takes at 10am, 6:30pm Feels fine, brought BP cuff to check, looks great No edema Stopped vitd supplement OBJECTIVE Vitals: 02/09/22 1057 BP: (!) 121/44 Pulse: 66 PHYSICAL EXAMINATION CONSTITUTIONAL: Conversant, well developed, NAD. EYES: No proptosis or lid-lag. EARS: Normal hearing. RESPIRATORY: Normal respiratory effort. CARDIOVASCULAR: No peripheral edema. EXTREMITIES: No edema. No cyanosis. SKIN: No rash. No lesions. No ulcers. MUSCULOSKELETAL: Normal gait and station. No digital cyanosis. NEURO: Cranial nerves II-XII grossly intact. LAB RESULTS Vitamin-D greater than 126 sodium 140 potassium 4.1 bicarbonate 26 urea 37 creatinine 1.9 GFR 26 calcium 9.1 phosphorus 4.2 albumin 3.9 ASSESSMENT/PLAN 1. CKD4, most recent eGFR 26, DM2/HTN, recent acute illness, intermittent NSAIDS all risks 2. HTN, improved today, following BP at home closely, continue with Dr. Durham phone visits 3. Vitd deficiency, resolved, now hypervitaminosis, hold supplement 4. DM2, on metformin, ok to continue for now -- agree with holding vitamind supplement -- no other med changes, continue current regimen RTC 6 mo documented in this encounter Plan of Treatment Upcoming Encounters Date Type Department Care Team (Late st Contact Info) Description 02/18/2024 9:40 AM EST Office Visit [facility] [address] [place] [address] Delilah Calderon, ACID REMOVER [address] [address] documented as of this encounter Visit Diagnoses Diagnosis CKD (chronic kidney disease) stage 4, GFR 15-29 ml/min ([facility])- Primary Chronic kidney disease, Stage IV (severe) Essential hypertension Unspecified essential hypertension Hypervitaminosis D documented in this encounter Care Teams Software Support Representative Relationship Specialty Start Date End Date Baljeet Hackett MD [address] [place] [address] PCP - General 07/19/20 documented as of this encounter
--- OUTSIDE RECORDS SUMMARY | 2024-02-15 23:00 | XMS_ITS | Encounter Summary ---
Author Organization [facility] Address [address] [place] [id number] Care Team Providers Care Photoengraving Helper Name Role Phone Baljeet Hackett MD Primary Care Provider [phone] Encounter Details Date Type Department Care Team (Late st Contact Info) Description 08/12/2016 External CPT II AGRICULTURAL EDUCATION TEACHER - [facility] Social History Tobacco Use [...] on filedocumented in this encounter Care Teams Photoengraving Helper Relationship Specialty Start Date End Date Baljeet Hackett MD [address] [place] [id number] PCP - General Family Medicine 02/06/16 documented as of this encounter
--- OUTSIDE RECORDS SUMMARY | 2024-02-15 23:00 | XMS_ITS | Encounter Summary ---
Author Organization [facility] Address [address] [place] [address] Care Team Providers Care Japanese Tutor Name Role Phone Baljeet Hackett MD Primary Care Provider [phone] Encounter Details Date Type Department Care Team (Late st Contact Info) Description 04/07/2022 Orders Only [facility] [address] [place] [address] Catherine Renteria Essential hypertension (Primary Dx) Social History Tobacco Use Types Packs/Day Years [...] Description 02/18/2024 9:40 AM EST Office Visit [facility] [address] [place] [address] Delilah Calderon, ALLERGY AND IMMUNOLOGY CHIEF [address] [phone] documented as of this encounter Visit Diagnoses Diagnosis Essential hypertension- Primary Unspecified essential hypertension documented in this encounter Care Teams Japanese Tutor Relationship Specialty Start Date End Date Baljeet Hackett MD [address] [place] [address] PCP - General 07/19/20 documented as of this encounter
--- OUTSIDE RECORDS SUMMARY | 2024-02-15 23:00 | XMS_ITS | Encounter Summary ---
Author Organization Healthcare Address [address] [place] [address] Care Team Providers Care Distribution Sales Manager Name Role Phone Baljeet Hackett MD Primary Care Provider Reason for Visit * Reason Comments Consult Encounter Details Date Type Department Care Team ([facility] Contact Info) Description 05/12/2021 11:20 AM EST Consult [facility] [address] [place] [id number] Robert Hogue MD [address] [address] CKD (chronic kidney disease) stage 4, GFR 15-29 ml/min (CMS/HCC) (Primary Dx) Social History Tobacco Use Types [...] have Coronavirus / COVID-19? No / Unsure 05/12/2021 11:07 AM EST documented as of this encounter Last Filed Vital Signs Vital Sign Reading Time Taken Comments Blood Pressure 133/63 05/12/2021 11:20 AM EST Pulse 87 05/12/2021 11:20 AM EST Temperature - - Respiratory Rate - - Oxygen Saturation - - Inhaled Oxygen Concentration - - Weight 68.5 kg (151 lb) 05/12/2021 11:20 AM EST Height - - Body Mass Index - - documented in this encounter Miscellaneous Notes * Progress Notes - Robert Hogue MD - 05/12/2021 11:20 AM EST SUBJECTIVE Carol Cazares presents as a consultation today for advanced CKD. HISTORY OF PRESENT ILLNESS Ms. Cazares is a 76 yo female ho DM2 and HTN here for consultation regarding CKD. She reports DM2 for about 10 years, no known retinopathy or neuropathy. No CAD, no PCI, h/o LHC. No CVA, no CHF. Recent serious illness at [facility] 01/26, pneumonia, required [facility]. No family h/o CKD. No serious infections. No kidney stones. She rarely uses Aleve. She reports compliance using a pill box for the week buthas difficulty with understanding the appropriate timing of each medication. No dyspnea, no edema. Past Medical History: Diagnosis Date ??? Arthritis ??? Coronary artery disease ??? Diabetes mellitus, type 2 (CMS/HCC) ??? Gout ??? Hyperlipidemia ??? Hypertension ??? Hypothyroidism Family History Problem Relation Name Age of Onset ??? Cancer Mother ??? Heart disease Father No past surgical history on file. Social History Tobacco Use ??? Smoking status: Never Smoker ??? Smokeless tobacco: Never Used Substance Use Topics ??? Alcohol use: Never Current Outpatient Medications Medication Sig Dispense Refill ??? albuterol 108 (90 Base) MCG/ACT inhaler Inhale 2 puffs every 6 (six) hours if needed for wheezing. ??? atorvastatin (Lipitor) 40 MG tablet ??? carvedilol (Coreg) 25 MG tablet 2 (two) times a day with meals. ??? cloNIDine (Catapres) 0.1 MG tablet 2 (two) times a day. ??? ergocalciferol 1.25 MG (480[address] UT) capsule 2 (two) times a week. ??? famotidine (Pepcid) 20 MG tablet ??? furosemide (Lasix) 20 MG tablet Take by mouth 1 (one) time each day. ??? glipiZIDE (Glucotrol) 10 MG tablet Take 10 mg by mouth 1 (one) time each day. ??? hydrALAZINE (Apresoline) 50 MG tablet 2 (two) times a day. ??? ISOSORBIDE MONONITRATE ER PO Take 20 mg by mouth 3 (three) times a day. ??? levothyroxine (Synthroid, Levoxyl) 100 MCG tablet ??? metFORMIN XR (Glucophage-XR) 500 MG 24 hr tablet ??? torsemide (Demadex) 10 MG tablet 5 mg 1 (one) time each day. ??? amLODIPine (Norvasc) 2.5 MG tablet Take 2.5 mg by mouth 1 (one) time each day. (Patient not taking: Reported on 05/12/2021) ??? aspirin 81 MG EC tablet Take 81 mg by mouth 1 (one) time each day. (Patient not taking: Reported on 05/12/2021) ??? ferrous sulfate 325 (65 Fe) MG tablet Take 325 mg by mouth 1 (one) time each day with breakfast. (Patient not taking: Reported on 05/12/2021) ??? lisinopril 20 MG tablet Take 20 mg by mouth 2 (two) times a day. (Patient not taking: Reported on 05/12/2021) ??? pioglitazone (Actos) 45 MG tablet Take 45 mg by mouth 1 (one) time each day. (Patient not taking: Reported on 05/12/2021) ??? simvastatin (Zocor) 20 MG tablet Take 20 mg by mouth every night. (Patient not taking: Reportedon 05/12/2021) No current facility-administered medications for this visit. No Known Allergies All medications have been reviewed today. REVIEW OF SYSTEMS Review of Systems Constitutional: Negative. No fever, fatigue, weight loss. Eyes: Negative. No vision changes. HEENT: Negative. No headache, hearing loss, mouth sores. Cardiovascular: Negative. No chest pain or discomfort, lower extremity swelling. Respiratory: Negative. No shortness of breath at rest, cough, hemoptysis. Gastrointestinal: Negative. No heartburn, loss of appetite, nausea, vomiting, bowel disturbance. Genitourinary: Negative. No dysuria, hematuria, incontinence, urinary frequency. Musculoskeletal: Negative. No lower back pain, joint swelling, gait disturbance. Integumentary: Negative. No rash, photosensitivity. Neurological: Negative. No seizure, vertigo, focal weakness, paresthesia. Psychiatric: Negative. No anxiety. No depressed mood. Endocrine: Negative. No polyuria. Libido not decreased. Hematologic/Lymphatic: Negative. No bruising. No prior history of a blood transfusion. OBJECTIVE Vitals: 05/12/21 1120 BP: 133/63 Pulse: 87 PHYSICAL EXAMINATION Physical Exam CONSTITUTIONAL: Conversant, well developed, NAD. EYES: No proptosis or lid-lag. EARS: Normal hearing. No lesions. NECK: supple, no JVD RESPIRATORY: Normal respiratory effort. CARDIOVASCULAR: No peripheral edema. EXTREMITIES: No edema. No cyanosis. SKIN: No rash. No lesions. No ulcers. MUSCULOSKELETAL: Normal gait and station. No digital cyanosis. NEURO: Cranial nerves II-XII grossly intact. Oriented. PSYCH: Pleasant affect, appropriate mood LAB RESULTS 03/29 Hb 8.9 PTH 74 Vitd 10 Ca 7.6 p 3 k 4.5 Cr 1.93 IMAGING REPORT pending ASSESSMENT/PLAN 1. CKD4, most recent eGFR 25, DM2/HTN, recent acute illness, intermittent NSAIDS all risks 2. HTN, on amlodipine/coreg/clonidine/hydralazine/imdur/lisinopril/torsemide, not comfortable with home BP monitoring, will have her bring home BP cuff back to clinic to provide education, no changesfor now; also follows cardiology 3. Vitd deficiency, on supplementation, no changes 4. DM2, likely benefit from sglt2i, on metformin, ok to continue for now -- order renal imaging, repeat labs -- return next month to review and discuss home BP documented in this encounter Plan of Treatment Upcoming Encounters Date Type Department Care Team (Late st Contact Info) Description 02/18/2024 9:40 AM EST Office Visit [facility] [address] [place] [address] Delilah Calderon, PUBLIC RELATIONS PLAYER [address] [address] Scheduled Orders Name Type Priority Associated Diagnoses Orde r Schedule CBC and Differential Lab Routine CKD (chronic kidney disease) stage 4, GFR 15-29 ml/min ([facility]) 1 Occurrences starting 05/12/2021 until 05/12/2022 documented as of this encounter Visit Diagnoses Diagnosis CKD (chronic kidney disease) stage 4, GFR 15-29 ml/min ([facility])- Primary Chronic kidney disease, Stage IV (severe) documented in this encounter Care Teams Distribution Sales Manager Relationship Specialty Start Date End Date Baljeet Hackett MD [address] [place] [address] PCP - General 07/19/20 documented as of this encounter
--- OUTSIDE RECORDS SUMMARY | 2024-02-15 23:00 | XMS_ITS | Encounter Summary ---
Author Organization Healthcare Address [address] [place] [address] Care Team Providers Care Fire Medic Name Role Phone Baljeet Hackett MD Primary Care Provider [phone] Encounter Details Date Type Department Care Team (Latest Contact Info) Description 09/24/2022 10:05 AM EDT Ancillary Procedure [facility] [address] [place] [id number] CAD (coronary artery disease); CHF (congestive heart failure) (CMS/HCC); Edema; Abnormal EKG; HTN (hypertension); DM (diabetes mellitus) (CMS/[facility]); Thyroid disease; Pre-hypertension Social History Tobacco Use Types Packs/Day Years [...] Sign Reading Time Taken Comments Blood Pressure 149/79 09/24/2022 10:57 AM EDT Pulse 87 09/24/2022 10:57 AM EDT Temperature - - Respiratory Rate - - Oxygen Saturation - - Inhaled Oxygen Concentration - - Weight 67.1 kg (148 lb) 09/24/2022 10:57 AM EDT Height 149.9 cm (4' 11 ) 09/24/2022 10:57 AM EDT Body Mass Index 29.89 09/24/2022 10:57 AM EDT documented in this encounter Plan of Treatment Upcoming Encounters Date Type Department Care Team ( Contact Info) Description 02/18/2024 9:40 AM EST Office Visit [facility] [place] [address] [place] [address] Delilah Calderon, ELLA [address] [address] documented as of this encounter Procedures Procedure Name Priority Date/Time Associated Diagnosis Comments ADULT ECHO OUTSIDE READ Routine 09/24/2022 10:57 AM EDT CAD (coronary artery disease) CHF (congestive heart failure) (CMS/HCC) Edema Abnormal EKG HTN (hypertension) DM (diabetes mellitus) (CMS/HCC) Thyroid disease Pre-hypertension documented in this encounter Results * ADULT ECHO OUTSIDE READ (09/24/2022 10:57 AM EDT) BSA 1.62 m2 LILIYA ISCV Height 149.9 LILIYA ISCV Weight 67.1 LILIYA ISCV Heart Rate 67 LILIYA ISCV LVIDd 54 mm LILIYA ISCV IVSd 9 mm LILIYA ISCV LVPWd 10 mm LILIYA ISCV LV RWT 0.35 mm LILIYA ISCV LV EDV(MOD-4ch) 106 mL LILIYA ISCV LV ESV(MOD4ch) 33 mL LILIYA ISCV EF(MOD-sp4) 69 % LILIYA ISCV LV EDV(MOD-2ch) 107 mL LILIYA ISCV LV ESV(MOD2ch) 42 mL LILIYA ISCV EF(MOD-sp2) 61 % LILIYA ISCV EDV(MOD-bp) 107 mL LILIYA ISCV ESV(MOD-bp) 38 mL LILIYA ISCV EF(MOD-bp) 65 % LILIYA ISCV MV E Vmax 128.0 cm/s LILIYA ISCV MV A Vmax 92.0 cm/s LILIYA ISCV MV E/A 1.4 cm/s LILIYA ISCV LV Lat e' Velocity 6.6 cm/s LILIYA ISCV LV Sept e' Сергей 4.6 cm/s LILIYA ISCV Lat E/e' 19.4 LILIYA ISCV Sep E/e' 27.8 LILIYA ISCV Avg E/e' 23.6 LILIYA ISCV TR Vmax 295.0 cm/s LILIYA ISCV LAV(MOD-bp) Indexed 35 mL/m2 LILIYA ISCV LAV(MOD-4ch) 62 mL LILIYA ISCV LAV(MOD-2ch) 50 mL LILIYA ISCV TR Max PG 35 mmHG LILIYA ISCV RVSP 38 mmHg LILIYA ISCV RAP systole 3 mmHg LILIYA ISCV Ao Root Diam 29 mm LILIYA ISCV Baseline Systolic BP 149 LILIYA ISCV Baseline Diastolic BP 79 LILIYA ISCV Anatomical Region Laterality Modality Echocardiography Narrative 09/24/2022 11:56 AM EDT ?Left??Ventricle: The left ventricle is dilated. The left ventricular systolic function is normal. The LVEF is visually estimated at 60 - 65%. The diastolic function is abnormal. There is grade II (moderate) diastolic dysfunction. ?Right??Ventricle: The right ventricle is grossly normal in size. The right ventricular systolic function is normal. The estimated right ventricular systolic pressure is 38 mmHg. ?All cardiac valves were reasonably well visualized with 2D and/or color flow Doppler and there was no significant valve regurgitation or stenosis seen. There is no recent study available for direct [id number] comparison. ?? Left Ventricle The left ventricle is dilated. The left ventricular systolic function is normal. The LVEF is visually estimated at 60 - 65%. The diastolic function is abnormal. There is grade II (moderate) diastolic dysfunction. The left ventricular wall motion is normal. Right Ventricle The right ventricle is grossly normal in size. The right ventricular systolic function is normal. The estimated right ventricular systolic pressure is 38 mmHg. Left Atrium The left atrium is dilated by visual assessment. The interatrial septum is intact with no evidence for an atrial septal defect. Right Atrium The right atrial size is normal. IVC/SVC Based on the IVC size and respiratory variation, the estimated right atrial pressure is 3mmHg. Mitral Valve The mitral valve leaflets are normal in appearance with no evidence of mitral valve prolapse. There is trace mitral regurgitation. There is no mitral stenosis. Tricuspid Valve The tricuspid valve is normal in appearance. There is no tricuspid regurgitation. There is no tricuspid stenosis. Aortic Valve The aortic valve appears to be trileaflet. There is no valvular regurgitation. There is no hemodynamically significant valvular aortic stenosis. Pulmonic Valve The pulmonic valve is normal in appearance. There is trace pulmonic regurgitation. There is no pulmonic stenosis. Pericardium No pericardial effusion. Great Vessels The aortic root is normal in size. The main pulmonary artery is not well visualized. Study Details A complete transthoracic echocardiogram using two-dimensional (2D), m-mode, color and spectral flow Doppler imaging was performed. Overall the study quality was adequate. BP: 149/79 mmHg. Heart Rate: 67 bpm. Heart rate was normal. Height: 149.9 cm. Weight: 67.1 kg. BSA: 1.62 m2. The heart rhythm during this exam was most suggestive of a sinus rhythm. Study Recommendation All cardiac valves were reasonably well visualized with 2D and/or color flow Doppler and there was no significant valve regurgitation or stenosis seen. There is no recent study available for direct [id number] comparison. Parminder PEREZ CV ECHO PROCEDURES Final Result documented in this encounter Visit Diagnoses Diagnosis CAD (coronary artery disease) Coronary atherosclerosis of unspecified type of vessel, [place] or graft CHF (congestive heart failure) (CMS/HCC) Congestive heart failure, unspecified Edema Abnormal EKG Nonspecific abnormal electrocardiogram (ECG) (EKG) HTN (hypertension) Unspecified essential hypertension DM (diabetes mellitus) (CMS/[facility]) Type II or unspecified type diabetes mellitus without mention of complication, not stated as uncontrolled Thyroid disease Unspecified disorder of thyroid Pre-hypertension Elevated blood pressure reading without diagnosis of hypertension documented in this encounter Care Teams Fire Medic Relationship Specialty Start Date End Date Baljeet Hackett MD [address] [place] [address] PCP - General 07/19/20 documented as of this encounter
--- OUTSIDE RECORDS SUMMARY | 2024-02-15 23:00 | XMS_ITS | Encounter Summary ---
Author Organization Healthcare Address [address] [place] [address] Care Team Providers Care Food Or Baggage Handling Rampman Name Role Phone Baljeet Hackett MD Primary Care Provider Encounter Details Date Type Department Care Team (Latest Contact Info) Description 02/09/2022 Travel Social History Tobacco Use Types Packs/Day [...] AM EST documented as of this encounter Plan of Treatment Upcoming Encounters Date Type Department Care Team (Late st Contact Info) Description 02/18/2024 9:40 AM EST Office Visit [facility] [address] [place] [address] Delilah Calderon, DRUG SAFETY ASSOCIATE [address] [facility] [address] [place] [address] documented as of this encounter Visit Diagnoses Not on filedocumented in this encounter Care Teams Food Or Baggage Handling Rampman Relationship Specialty Start Date End Date Baljeet Hackett MD [address] [place] [address] PCP - General 07/19/20 documented as of this encounter
--- OUTSIDE RECORDS SUMMARY | 2024-02-15 23:00 | XMS_ITS | Clinical Summary ---
Author Organization [facility] Address [address] [place] [address] Care Team Providers Care Dragline Mechanic Name Role Phone Baljeet Hackett MD Primary Care Provider [phone] Allergies No known active allergies Medications levothyroxine (SYNTHROID, LEVOTHROID) 100 MCG tablet Take 125 mcg by mouth Daily. 0 03/26/2016 Active hydrochlorothiaz ramirez (HYDRODIURIL) 25 MG tablet Take 25 mg by mouth Daily. 1 03/08/2016 Active metFORMIN (GLUCOPHAGE) 500 MG tablet Take 500 mg by mouth 2 (Two) Times a Day With Meals. 1 03/10/2016 Active verapamil (CALAN) 120 MG tablet Take 120 mg by mouth 2 (Two) Times a Day. 1 03/08/2016 Active lisinopril (PRINIVIL,ZESTRI L) 20 MG tablet Take 20 mg by mouth Daily. 1 03/08/2016 Active glipiZIDE (GLUCOTROL) 10 MG 24 hr tablet 10 mg 2 (Two) Times a Day. 0 03/08/2016 Active simvastatin (ZOCOR) 10 MG tablet Take 10 mg by mouth Every Night. 0 03/08/2016 Active potassium chloride (KAYCIEL) 20 MEQ/15ML (10%) solution 20 mEq Daily. 1 03/26/2016 Active aspirin 81 MG EC tablet Take 81 mg by mouth Daily. Active IRON PO Take by mouth 2 (Two) Times a Day. Active CloNIDine (CATAPRES) 0.2 MG tablet Take 1 tablet by mouth Every 12 (Twelve) Hours. 60 tablet 5 11/02/2017 Active Active Problems No known active problems Family History Medical History Relation Name Comments Heart attack Father Cancer Mother Relation Name Status Comments Father Mother Social History Tobacco Use Types Packs/Day Years Used Date Smoking Tobacco: Never Smokeless Tobacco: Never Alcohol Use Standard Drinks/Week Comments No 0 (1 standard drink = 0.6 oz pur e alcohol) Abuse Screen Answer Date Recorded Unsafe at Home or Work/School Not on file Feels Threatened by Someone? Not on file 11/2022 Does Anyone Keep You from Co ntacting Others or Doint Things Outside the Home? Not on file 12/14/2022 Physical Sign of Abuse Present Not on file 1 Housing Stability Answer Date Recorded Current Living Arrangements Not on file 11/2022 Potentially Unsafe Housing Conditions Not on andreina e 12/14/2022 Family and Community Support Answer Turner e Recorded Help with Day-to-Day Activities Not on file 12/14/2022 Lonely or Isolated Not on file 12/14/2022 Employment Answer Date Recorded Do you want help finding or keeping work or a asha b? Not on file 12/14/2022 Disabilities Answer Date Recorded Concentrating, Remembering, or Making Decisions Difficulty Not on file 12/14/2022 Doing Errands Independently Difficulty Not on fi le 12/14/2022 Education Answer Date Recorded Help with school or training? Not on file Preferred Language Not on file 12/14/2022 Comments Unknown Sex and Gender Information Value Date Recorded Sex Assigned at Not on file Legal Sex Female 11:59 AM EDT Gender Identity Not on file Sexual Orientation Not on file Last Filed Vital Signs Vital Sign Reading Time Taken Comments Blood Pressure 190/102 11/02/2017 1:38 PM EDT Pulse 89 11/02/2017 1:38 PM EDT Temperature - - Respiratory Rate - - Oxygen Saturation - - Inhaled Oxygen Concentration - - Weight 67.1 kg (148 lb) 11/02/2017 1:38 PM EDT Height 152.4 cm (5') 11/02/2017 1:38 PM EDT Body Mass Index 28.9 11/02/2017 1:38 PM EDT Plan of Treatment Health Maintenance Due Date Last Done Comments COLOGUARD 1945 COLON CANCER SCREENING 5 YEAR SIGMOIDOSCOPY 1945 COLONOSCOPY 1947 COLORECTAL CANCER SCREENING 1947 CT COLONOGRAPHY 1947 DXA SCAN 1945 FECAL OCCULT BLOOD TEST 1947 FIT Testing (1 year) 1945 LIPID PANEL 1947 MAMMOGRAM 1947 TDAP/TD VACCINES (1 - Tdap) 1966 ZOSTER VACCINE (1 of 2) 1997 Pneumococcal Vaccine 65+ (1 of 1 - PCV) 02/16/2012 ANNUAL WELLNESS VISIT 09/29/2016 HEPATITIS C SCREENING 09/29/2016 RSV Vaccine - Adults (1 - 1-dose 75+ series) INFLUENZA VACCINE 09/06/2023 COVID-19 Vaccine (1 - 2023-25 season) 2023 Insurance MEDICARE A & B [place]ICAID [place] Care Teams Dragline Mechanic Relationship Specialty Start Date End Date Baljeet Hackett MD [address] [place] [address] PCP - General Family Medicine 02/06/16
--- OUTSIDE RECORDS SUMMARY | 2024-02-15 23:00 | XMS_ITS | Encounter Summary ---
[facility] Organization [facility] Address [address] [place] [id number] Care Team Providers Care Electrical Accessories Ii Assembler Name Role Phone Baljeet Hackett MD Primary Care Provider [phone] Reason for Visit * Reason Onset Date Comments Med Refill 11/02/2017 Encounter Details Date Type Department Care Team (Late st Contact Info) Description 11/02/2017 Refill [facility] [address] [facility] [address] [place] [phone] Felecia Drew, RN Med Refill Social History Tobacco Use Types Packs/Day Years [...] on filedocumented in this encounter Care Teams Electrical Accessories Ii Assembler Relationship Specialty Start Date End Date Baljeet Hackett MD [address] [place] [id number] PCP - General Family Medicine 02/06/16 documented as of this encounter
--- OUTSIDE RECORDS SUMMARY | 2024-02-15 23:00 | XMS_ITS | Encounter Summary ---
[facility] Organization [facility] Address [address] [place] [address] Care Team Providers Care Food Service Name Role Phone Baljeet Hackett MD Primary Care Provider [phone] Encounter Details Date Type Department Care Team (Late st Contact Info) Description 02/09/2017 External CPT II DIRECTOR ENTERPRISE SALES - [facility] Social History Tobacco Use [...] filedocumented in this encounter Care Teams Food Service Relationship Specialty Start Date End Date Baljeet Hackett MD [address] [place] [id number] PCP - General Family Medicine 02/06/16 documented as of this encounter
--- OUTSIDE RECORDS SUMMARY | 2024-02-15 23:00 | XMS_ITS | Encounter Summary ---
Author Organization [facility] Address [address] [place] [address] Care Team Providers Care Hospital Social Worker Name Role Phone Baljeet Hackett MD Primary Care Provider [phone] Encounter Details Date Type Department Care Team (Late st Contact Info) Description 01/16/2015 External CPT II CHERRY PITTER - [facility] Social History Tobacco Use [...] on filedocumented in this encounter Care Teams Hospital Social Worker Relationship Specialty Start Date End Date Baljeet Hackett MD [address] [place] [address] PCP - General Family Medicine 02/06/16 documented as of this encounter
--- OUTSIDE RECORDS SUMMARY | 2024-02-15 23:00 | XMS_ITS | Encounter Summary ---
[facility] Address [address] [place] [id number] Care Team Providers Care Snuff Drier Name Role Phone Baljeet Hackett MD Primary Care Provider [phone] Encounter Details Date Type Department Care Team (Late st Contact Info) Description 05/11/2017 External CPT II ELECTRONIC INDUSTRIAL CONTROLS MECHANIC - [facility] Social History Tobacco Use [...] on filedocumented in this encounter Care Teams Snuff Drier Relationship Specialty Start Date End Date Baljeet Hackett MD [address] [place] [phone] PCP - General Family Medicine 02/06/16 documented as of this encounter
--- OUTSIDE RECORDS SUMMARY | 2024-02-15 23:00 | XMS_ITS | Encounter Summary ---
Author Organization [facility] Address [address] [place] [address] Care Team Providers Care Flex O Writer Operator Name Role Phone Baljeet Hackett MD Primary Care Provider [phone] Reason for Visit * Reason Comments Hypertension Hyperlipidemia Encounter Details Date Type Department Care Team (Late st Contact Info) Description 11/02/2017 1:45 PM EDT Office Visit [facility] [address] [place] [address] Jayson Chairez MD [address] [facility] [address] [place] [address] Coronary artery disease involving elim ira coronary artery of elim ira heart without angina pectoris (Primary Dx); Essential hypertension; Mixed hyperlipidemia; Type 2 diabetes mellitus with [...] Mass Index 28.9 11/02/2017 1:38 PM EDT documented in this encounter Progress Notes * Jayson Chairez MD - 11/02/2017 1:45 PM EDT [facility] Office Progress Note Carol Cazares 1945 Visit Date: 11/02/2017 PCP: Baljeet Hackett MD [address] [facility] [address] IDENTIFICATION: A 72 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 Hypertension ??? Hyperlipidemia PROBLEM LIST: 1. Chest tightness/dyspnea on exertion 1. 2004- [facility] x 2, [facility] and [facility], data deficient reportedly normal 2. 04/09/16 [facility]: Normal EKG portion, no evidence of reversible [...] History of Present Illness Patient here to follow-up.. Still having poor control of diabetes, finding it difficult to limit carbohydrates. Pt denies any chest pain, dyspnea, dyspnea on exertion, orthopnea, PND, palpitations, lower extremity edema, or claudication. ROS: All systems have been reviewed and are negative with the exception of those mentioned in the HPI. OBJECTIVE: Vitals: 11/02/17 1338 BP: (!) 190/102 BP Location: Left arm Patient Position: Sitting Pulse: 89 Weight: 67.1 kg (148 lb) Height: 152.4 cm (60 ) 140/78 upon recheck Physical Exam Constitutional: She [...] Diagnostic Data: Procedures ASSESSMENT: Diagnosis Plan 1. Coronary artery disease involving elim ira coronary artery of elim ira heart without angina pectoris 2. Essential hypertension 3. Mixed hyperlipidemia 4. Type 2 diabetes mellitus with hyperglycemia, without long-term current use of insulin ([facility]) PLAN: 1. .stable angina 2. Continue current antihypertensives w increase of clonidine to 0.2 bid 3. Continue statin therapy with simvastatin 4. Poor diabetic control, patient counseled on the importance of portion control and limiting all carbohydrates suite, breads, pasta, and potatoes, corn. 11/02/2017 1:58 PM Jayson Chairez MD, FACC documented in this encounter Plan of Treatment Not on file documented as of this encounter Visit Diagnoses Diagnosis Coronary artery disease involving elim ira coronary artery of elim ira heart without angina pectoris- Primary Essential hypertension Unspecified essential hypertension Mixed hyperlipidemia Type 2 diabetes mellitus with hyperglycemia, without long-term current use of insulin documented in this encounter Care Teams Flex O Writer Operator Relationship Specialty Start Date End Date Baljeet Hackett MD [address] [place] [address] PCP - General Family Medicine 02/06/16 documented as of this encounter
--- OUTSIDE RECORDS SUMMARY | 2024-02-15 23:00 | XMS_ITS | Encounter Summary ---
Author Organization [facility] Address [address] [place] [address] Care Team Providers Care Account Executive Agribusiness Name Role Phone Baljeet Hackett MD Primary Care Provider [phone] Encounter Details Date Type Department Care Team (Latest Contact Info) Description 05/12/2021 Travel Social History Tobacco Use Types Packs/Day [...] Description 02/18/2024 9:40 AM EST Office Visit [facility] [address] [place] [address] Delilah Calderon, HYBRID CORN BREEDER [address] [facility] [address] [place] [address] documented as of this encounter Visit Diagnoses Not on filedocumented in this encounter Care Teams Account Executive Agribusiness Relationship Specialty Start Date End Date Baljeet Hackett MD [address] [place] [address] PCP - General 07/19/20 documented as of this encounter
--- OUTSIDE RECORDS SUMMARY | 2024-02-15 23:00 | XMS_ITS | Encounter Summary ---
Author Organization [facility] Address [address] [place] [address] Care Team Providers Care Career Technical Supervisor Name Role Phone Baljeet Hackett MD Primary Care Provider [phone] Encounter Details Date Type Department Care Team (Late st Contact Info) Description 05/21/2015 External CPT II STAGE BUILDER - [facility] Social History Tobacco Use [...] on filedocumented in this encounter Care Teams Career Technical Supervisor Relationship Specialty Start Date End Date Baljeet Hackett MD [address] [place] [address] PCP - General Family Medicine 02/06/16 documented as of this encounter
--- OUTSIDE RECORDS SUMMARY | 2024-02-15 23:00 | XMS_ITS | Encounter Summary ---
[facility] Organization [facility] Address [address] [place] [id number] Care Team Providers Care Manual Qa Tester Name Role Phone Baljeet Hackett MD Primary Care Provider [phone] Encounter Details Date Type Department Care Team (Late st Contact Info) Description 06/07/2018 External CPT II PHYSICAL THERAPY NURSE - [facility] Social History Tobacco Use [...] on filedocumented in this encounter Care Teams Manual Qa Tester Relationship Specialty Start Date End Date Baljeet Hackett MD [address] [place] [id number] PCP - General Family Medicine 02/06/16 documented as of this encounter
--- OUTSIDE RECORDS SUMMARY | 2024-02-15 23:00 | XMS_ITS | Encounter Summary ---
Author Organization Healthcare Address [address] [place] [address] Care Team Providers Care Auto Damage Insurance Appraiser Name Role Phone Baljeet Hackett MD Primary Care Provider [phone] Encounter Details Date Type Department Care Team (Late st Contact Info) Description 08/17/2022 Orders Only [facility] [address] [place] [address] Catherine Renteria Essential hypertension Social History Tobacco Use Types Packs/Day Years [...] Description 02/18/2024 9:40 AM EST Office Visit [facility] [address] [place] [address] Delilah Calderon, TRAFFIC INCIDENT MANAGEMENT MANAGER [address] [phone] documented as of this encounter Visit Diagnoses Diagnosis Essential hypertension Unspecified essential hypertension documented in this encounter Care Teams Auto Damage Insurance Appraiser Relationship Specialty Start Date End Date Baljeet Hackett MD [address] [place] [address] PCP - General 07/19/20 documented as of this encounter
--- OUTSIDE RECORDS SUMMARY | 2024-02-15 23:00 | XMS_ITS | Encounter Summary ---
Author Organization [facility] Address [address] [place] [address] Care Team Providers Care Packaging Line Operator Name Role Phone Baljeet Hackett MD Primary Care Provider [phone] Encounter Details Date Type Department Care Team (Late st Contact Info) Description 02/04/2016 External CPT II GREASE PACKER - [facility] Social History Tobacco Use [...] on filedocumented in this encounter Care Teams Packaging Line Operator Relationship Specialty Start Date End Date Baljeet Hackett MD [address] [place] [address] PCP - General Family Medicine 02/06/16 documented as of this encounter
--- OUTSIDE RECORDS SUMMARY | 2024-02-15 23:00 | XMS_ITS | Encounter Summary ---
[facility] Address [address] [place] [id number] Care Team Providers Care Gas Appliance Servicer Name Role Phone Baljeet Hackett MD Primary Care Provider [phone] Encounter Details Date Type Department Care Team (Late st Contact Info) Description 08/11/2017 External CPT II TEENAGE PROGRAM DIRECTOR - [facility] Social History Tobacco Use [...] on filedocumented in this encounter Care Teams Gas Appliance Servicer Relationship Specialty Start Date End Date Baljeet Hackett MD [address] [place] [phone] PCP - General Family Medicine 02/06/16 documented as of this encounter
--- OUTSIDE RECORDS SUMMARY | 2024-02-15 23:00 | XMS_ITS | Encounter Summary ---
Author Organization [facility] Address [address] [place] [address] Care Team Providers Care Handbag Parts Cutter Name Role Phone Baljeet Hackett MD Primary Care Provider [phone] Encounter Details Date Type Department Care Team ([facility] st Contact Info) Description 04/29/2022 Telephone [facility]ph[facility], Bone [facility] Mineral Metabolism [address], [address] [place] [address] Lorelei Durham, PharmD [address] [place] [address] Social History Tobacco Use Types Packs/Day Years [...] encounter Miscellaneous Notes * Telephone Encounter - Lorelei Durham, PharmD - 04/29/2022 10:16 AM EST Spoke with Carol Cazares via telephone to follow-up on home blood pressure readings since last office visit with Dr. Hogue on 02/09/2022. Cuff was validated during visit; however, she states she hasn'tchecked BP at home in the last couple months. Encouraged she resume monitoring a few times per weekto ensure BP within goal range, as BP was low-normal at last visit (121/44). She expressed understanding and is agreeable. She denies any questions or concerns today. Will follow-up via telephone in 4-6 weeks to review home BP log. Lorelei Durham, PharmD, BCACP Clinical Pharmacist [facility] documented in this encounter Plan of Treatment Upcoming Encounters Date Type Department Care Team (Late st Contact Info) Description 02/18/2024 9:40 AM EST Office Visit [facility] [address] [place] [address] Delilah Calderon, LEAD QUALITY TECHNICIAN [address] [address] documented as of this encounter Visit Diagnoses Not on filedocumented in this encounter Care Teams Handbag Parts Cutter Relationship Specialty Start Date End Date Baljeet Hackett MD [address] [place] [address] PCP - General 07/19/20 documented as of this encounter
--- OUTSIDE RECORDS SUMMARY | 2024-02-15 23:00 | XMS_ITS | Encounter Summary ---
Author Organization [facility] Address [address] [place] [address] Care Team Providers Care Cross Country And Track And Field Coach Name Role Phone Baljeet Hackett MD Primary Care Provider [phone] Reason for Visit * Reason Comments Med Refill Encounter Details Date Type Department Care Team (Late st Contact Info) Description 08/07/2022 Refill [facility] [address] [place] [address] Robert Hogue MD [address] [address] Essential hypertension Social History Tobacco Use Types [...] 9:40 AM EST Office Visit [facility] [address] [place] [address] Delilah Calderon APRN [address] [address] documented as of this encounter Visit Diagnoses Diagnosis Essential hypertension Unspecified essential hypertension documented in this encounter Care Teams Cross Country And Track And Field Coach Relationship Specialty Start Date End Date Baljeet Hackett MD [address] [place] [address] PCP - General 07/19/20 documented as of this encounter
--- OUTSIDE RECORDS SUMMARY | 2024-02-15 23:00 | XMS_ITS | Clinical Summary ---
Author Organization [facility] Address [address] [place] [address] Care Team Providers Care Specialty Sales Consultant Name Role Phone Unavailable Primary Care Provider [...]
--- OUTSIDE RECORDS SUMMARY | 2024-02-15 23:00 | XMS_ITS | Encounter Summary ---
Author Organization [facility] Address [address] [place] [address] Care Team Providers Care Formula Maker Name Role Phone Baljeet Hackett MD Primary Care Provider [phone] Encounter Details Date Type Department Care Team (Late Contact Info) Description 07/14/2021 Telephone [facility], Bone & Mineral Metabolism [address] [place] [address] Baljeet Hackett MD [address] [place] [address] Social History Tobacco Use Types Packs/Day Years [...] encounter Miscellaneous Notes * Telephone Encounter - Katelin Stallings - 08/01/2021 2:04 PM EDT Office sent last 2 office notes from Mar 2021. Uploaded into pt chart as requested documented in this encounter Plan of Treatment Upcoming Encounters Date Type Department Care Team (Late Contact Info) Description 02/18/2024 9:40 AM EST Office Visit [facility] [address] [place] [phone] Delilah Calderon, CONFIGURATION MANAGEMENT ANALYST [address] [phone] documented as of this encounter Visit Diagnoses Not on filedocumented in this encounter Care Teams Formula Maker Relationship Specialty Start Date End Date Baljeet Hackett MD [address] [place] [address] PCP - General 07/19/20 documented as of this encounter
--- OUTSIDE RECORDS SUMMARY | 2024-02-15 23:00 | XMS_ITS | Encounter Summary ---
Author Organization [facility] Address [address] [place] [address] Care Team Providers Care Title Searcher Name Role Phone Baljeet Hackett MD Primary Care Provider [phone] Encounter Details Date Type Department Care Team (Late Contact Info) Description 04/10/2021 Orders Only [facility] [address] [place] [address] Catherine Renteria CKD (chronic kidney disease) stage 4, GFR [...] Description 02/18/2024 9:40 AM EST Office Visit [facility] [address] [place] [address] Delilah Calderon, FREIGHT TEAM ASSOCIATE [address] [address] Scheduled Orders Name Type Priority Associated Diagnoses Orde r Schedule Renal Function Panel, Plasma Lab Routine CKD (chronic kidney disease) stage 4, GFR 15-29 ml/min (CMS/HCC) Expected: 05/06/2021 (Approximate), Expires: 04/10/2022 CBC and Differential Lab Routine CKD (chronic kidney disease) stage 4, GFR 15-29 ml/min ([facility]) Expected: 05/06/2021 (Approximate), Expires: 04/10/2022 documented as of this encounter Visit Diagnoses Diagnosis CKD (chronic kidney disease) stage 4, GFR 15-29 ml/min (CMS/HCC)- Primary Chronic kidney disease, Stage IV (severe) documented in this encounter Care Teams Title Searcher Relationship Specialty Start Date End Date Baljeet Hackett MD [address] [place] [address] PCP - General 07/19/20 documented as of this encounter
--- OUTSIDE RECORDS SUMMARY | 2024-02-15 23:00 | XMS_ITS | Encounter Summary ---
Author Organization [facility] Address [address] [place] [address] Care Team Providers Care Duck Operator Name Role Phone Unavailable Primary Care Provider Unavailabl e Encounter Details Date Type Department Care Team (Late st Contact Info) Description 02/05/2021 Historic Encounter [facility] [address] [place] [address] Provider, [facility] Historical Social History Tobacco Use Types Packs/Day Years Used Date Smoking Tobacco: Never Assessed Comments Unknown Sex and Gender Information Value Date Recorded Sex Assigned at Female 09/02/2021 8:59 PM CDT Legal Sex Female 8:59 PM CDT Gender Identity Female 09/02/2021 8:59 PM CDT Sexual Orientation Not on file documented as of this encounter Plan of Treatment Not on file documented as of this encounter Procedures Procedure Name Priority Date/Time Associated Diagnosis Comments CALCIUM IONIZED ([facility] DATA CONV) Routine 02/05/2021 7:21 AM EST documented in this encounter Results * (ABNORMAL) CALCIUM IONIZED ([facility] BK DATA CONV) (02/05/2021 7:21 AM EST) Calcium Ionized 1.07(L) 1.12 - 1.32 mmol/L 02/05/2021 1:19 PM EST [facility] Blood 02/05/2021 7:21 AM EST 02/05/2021 12:35 PM EST us [facility] Historical Provider LAB BLOOD ORDERABLES Fi nal Result [facility] [address] [place], [place] [address] [phone] documented in this encounter Visit Diagnoses Not on filedocumented in this encounter
--- OUTSIDE RECORDS SUMMARY | 2024-02-15 23:00 | XMS_ITS | Encounter Summary ---
Author Organization [facility] Address [address] [place] [address] Care Team Providers Care Lead Systems Engineer Name Role Phone Baljeet Hackett MD Primary Care Provider [phone] Reason for Visit * Reason Comments Follow-up Encounter Details Date Type Department Care Team (Late st Contact Info) Description 06/09/2021 1:20 PM EDT Office Visit [facility] [address] [place] [address] Robert Hogue MD [address] [address] CKD (chronic kidney disease) stage 4, GFR 15-29 ml/min ([facility]) (Primary Dx); Essential hypertension; Vitamin D deficiency Social History Tobacco Use Types Packs/Day Years [...] PM EDT documented as of this encounter Last Filed Vital Signs Vital Sign Reading Time Taken Comments Blood Pressure 174/84 06/09/2021 1:38 PM EDT Pulse 85 06/09/2021 1:38 PM EDT Temperature - - Respiratory Rate - - Oxygen Saturation - - Inhaled Oxygen Concentration - - Weight 66.2 kg (146 lb) 06/09/2021 1:38 PM EDT Height - - Body Mass Index - - documented in this encounter Miscellaneous Notes * Progress Notes - Robert Hogue MD - 06/09/2021 1:20 PM EDT SUBJECTIVE Carol Cazares is a 76 y.o. female who presents for follow-up. Ms. Cazares is a 76 yo female ho DM2 and HTN here for follow up regarding CKD. She reports DM2 for about 10 years, no known retinopathy or neuropathy. No CAD, no PCI, h/o LHC. No CVA, no CHF. Recent serious illness at [facility] 01/26, pneumonia, required [facility]. No [...] but not labs, will get after clinic OBJECTIVE Vitals: 06/09/21 1338 BP: 174/84 Pulse: 85 PHYSICAL EXAMINATION CONSTITUTIONAL: Conversant, well developed, NAD. EYES: No proptosis or lid-lag. EARS: Normal hearing. RESPIRATORY: Normal respiratory effort. CARDIOVASCULAR: No peripheral edema. EXTREMITIES: No edema. No cyanosis. SKIN: No rash. No lesions. No ulcers. MUSCULOSKELETAL: Normal gait and station. No digital cyanosis. NEURO: Cranial nerves II-XII grossly intact. LAB RESULTS 03/29 Hb 8.9 PTH 74 Vitd 10 Ca 7.6 p 3 k 4.5 Cr 1.93 06/27 Creatinine 1.6 Hb 11 UAC negative Renal US right 8cm, left 8cm, bilateral thinnin ASSESSMENT/PLAN 1. CKD4, most recent eGFR 25, [...] on metformin, ok to continue for now ?? -- increase amlodipine to 5mg daily (will attempt renal pharm to discuss home BP monitoring) -- continue vitd replacement -- stopped simvastatin as taking atorvastatin, stopped furosemide as taking torsemide RTC 6 mo documented in this encounter Plan of Treatment Upcoming Encounters Date Type Department Care Team (Late st Contact Info) Description 02/18/2024 9:40 AM EST Office Visit [facility] [address] [place] [address] Delilah Calderon, BALLOON SANDER [address] [address] Scheduled Orders Name Type Priority Associated Diagnoses Orde r Schedule Renal Function Panel, Plasma Lab Routine CKD (chronic kidney disease) stage 4, GFR 15-29 ml/min (CMS/HCC) Essential hypertension Vitamin D deficiency 1 Occurrences starting 06/09/2021 until 06/09/2022 documented as of this encounter Visit Diagnoses Diagnosis CKD (chronic kidney disease) stage 4, GFR 15-29 ml/min (CMS/HCC)- Primary Chronic kidney disease, Stage IV (severe) Essential hypertension Unspecified essential hypertension Vitamin D deficiency documented in this encounter Care Teams Lead Systems Engineer Relationship Specialty Start Date End Date Baljeet Hackett MD [address] [place] [address] PCP - General 07/19/20 documented as of this encounter
--- OUTSIDE RECORDS SUMMARY | 2024-02-15 23:00 | XMS_ITS | Encounter Summary ---
[facility] Address [address] [place] [id number] Care Team Providers Care Vegetable Trimmer Name Role Phone Baljeet Hackett MD Primary Care Provider [phone] Encounter Details Date Type Department Care Team (Late st Contact Info) Description 06/14/2018 External CPT II DITTO MACHINE OPERATOR - [facility] Social History Tobacco Use [...] on filedocumented in this encounter Care Teams Vegetable Trimmer Relationship Specialty Start Date End Date Baljeet Hackett MD [address] [place] [phone] PCP - General Family Medicine 02/06/16 documented as of this encounter
--- OUTSIDE RECORDS SUMMARY | 2024-02-15 23:00 | XMS_ITS | Encounter Summary ---
Author Organization [facility] Address [address] [place] [address] Care Team Providers Care Director Of Infection Prevention Name Role Phone Baljeet Hackett MD Primary Care Provider [phone] Encounter Details Date Type Department Care Team (Late st Contact Info) Description 01/17/2014 External CPT II OLIVER FILTER OPERATOR - [facility] Social History Tobacco [...] on filedocumented in this encounter Care Teams Director Of Infection Prevention Relationship Specialty Start Date End Date Baljeet Hackett MD [address] [place] [address] PCP - General Family Medicine 02/06/16 documented as of this encounter
--- OUTSIDE RECORDS SUMMARY | 2024-02-15 23:00 | XMS_ITS | Encounter Summary ---
Author Organization [facility] Address [address] [place] [phone] Care Team Providers Care Manager Home Improvement Name Role Phone Baljeet Hackett MD Primary Care Provider [phone] Encounter Details Date Type Department Care Team (Late st Contact Info) Description 05/12/2016 External CPT II SHODER FILLER - [facility] Social History Tobacco Use [...] on filedocumented in this encounter Care Teams Manager Home Improvement Relationship Specialty Start Date End Date Baljeet Hackett MD [address] [place] [phone] PCP - General Family Medicine 02/06/16 documented as of this encounter
--- OUTSIDE RECORDS SUMMARY | 2024-02-15 23:00 | XMS_ITS | Encounter Summary ---
Author Organization [employer] Address [address] [place] [address] Care Team Providers Care Saddle Mechanic Name Role Phone Unavailable Primary Care Provider Unavailabl e Encounter Details Date Type Department Care Team (Late st Contact Info) Description 02/10/2021 Transcribed Document [facility] [place] [facility] [place] [address] ProviderDick MD [address] [place] [address] Social History Tobacco Use Types Packs/Day Years Used Date Smoking Tobacco: Never Assessed Comments Unknown Sex and Gender Information Value Date Recorded Sex Assigned at Female 09/02/2021 8:59 PM CDT Legal Sex Female 8:59 PM CDT Gender Identity Female 09/02/2021 8:59 PM CDT Sexual Orientation Not on file documented as of this encounter Miscellaneous Notes * Cerner Conversion Note - Historical ProviderMD - 02/10/2021 12:01 PM CLOTH MERCERIZER BACK TENDER Please Modify Before Signing CLINICAL DOCUMENTATION CLARIFICATION FORM: Dear : Livan David Date / Time: 02/10/2021, 09:01 Please exercise your independent, professional judgment in responding to the clarification form. Clinical indicators are provided on the bottom of this form for your review Please check appropriate box(es) : [ x ] Community-acquired pneumonia [ ] Aspiration pneumonia [ ] Bacterial pneumonia (Please specify organism) [ ] Other Diagnosis [ ] Unable to Determine Physician Signature: Date/Time: For continuity of documentation, please document condition throughout progress notes and discharge summary. Thank You. To be completed by CDI/Coding staff for physician review: Present Clinical Indicators - Signs / Symptoms / Labs Results and Location in Medical Record [ X ] Reasonable to start Zosyn to cover for aspiration pneumonia Documented in Consult note on 01/29/[address] Leti Ge [ X ] Bilateral multifocal pneumonia with bronchitis, CAP vs aspiration vs VAP, usual organisms including Streptococcus, Staphylococcus, gram-negative rods. Less likely Legionella Documented in Consult note on 02/01/[address] Albert Flanagan [ X ] Bilateral infiltrates with consolidation: Probable community-acquired pneumonia Versus aspiration pneumonitis Documented in Progress note on 01/31/[address] Tk [place] [ X ] Shortness of breath Documented in H&P note on 01/29/[address] Bijan Riojas [ X ] Acute respiratory failure, status post intubation/extubation Documented in Discharge summary note on 02/04/[address] Livan David [ X ] Clinical Swallow Evaluation 02/01: Impressions: Signs/Symptoms of Pharyngeal Dysphagia. Documented in clinical swallow evaluation note on 02/01/2021 [ X ] WBC 15.0 Documented in Lab results review on 02/01/2021 Present Risk Factors Results and Location in Medical Record [ X ] Cardiopulmonary arrest Documented in Progress note on 01/30/[address] Skyla David [ X ] Morbid obesity Documented in Discharge summary note on 02/04/[address] Livan David [ X ] Diabetes mellitus Documented in Discharge summary note on 02/04/[address] Livan David [ X ] Hypertension Documented in Discharge summary note on 02/04/[address] Livan David [ X ] Advance age 75 Documented in Discharge summary note on 02/05/[address] Livan David Present Treatments Results and Location in Medical Record [ X ] Consult pulmonary critical care; vent management Documented in H&P note on 01/29/[address] Bijan Riojas [ X ] Doxycycline 100 mg Documented in MAR Summary on 01/30/2021 [ X ] Zosyn 4.5 gm Documented in MAR Summary on 01/30/2021 [ X ] NaCl 250 ml Documented in MAR Summary on 01/30/2021 CDS/Financial Operations Consultant Signature: Sheila Maradiaga Phone #: [phone] EXTN: [id number] Date/Time:02/10/2021, 09:01 This is a permanent part of the Medical Record Q6 2020 [facility] Reviewed: 06/2020 documented in this encounter Plan of Treatment Not on file documented as of this encounter Visit Diagnoses Not on filedocumented in this encounter
--- OUTSIDE RECORDS SUMMARY | 2024-02-15 23:00 | XMS_ITS | Encounter Summary ---
Author Organization Healthcare Address [address] [place] [address] Care Team Providers Care Rig Welder Name Role Phone Baljeet Hackett MD Primary Care Provider [phone] Reason for Visit * Reason Comments Follow-up Encounter Details Date Type Department Care Team (Late st Contact Info) Description 08/10/2022 12:00 PM EDT Office Visit [facility] [address] [place] [address] Delilah Calderon, PLATE MAKER [address] [address] CKD (chronic kidney disease) stage 4, GFR 15-29 ml/min ([facility]) (Primary Dx); Essential hypertension; Hypervitaminosis D Social [...] Sign Reading Time Taken Comments Blood Pressure 128/53 08/10/2022 11:57 AM EDT Pulse 81 08/10/2022 11:57 AM EDT Temperature - - Respiratory Rate - - Oxygen Saturation - - Inhaled Oxygen Concentration - - Weight 68.5 kg (151 lb) 08/10/2022 11:57 AM EDT Height - - Body Mass Index - - documented in this encounter Miscellaneous Notes * Progress Notes - Delilah Calderon, PLATE MAKER - 08/10/2022 12:00 PM EDT SUBJECTIVE Carol Cazares is a 77 y.o. female who presents for follow-up. Ms. Cazares is a 77 yo female ho DM2 and HTN here for follow up regarding CKD. She reports DM2 for about 10 years, no known retinopathy or neuropathy. No CAD, no PCI, h/o LHC. No CVA, no CHF. Recent serious illness at [facility] 01/26, pneumonia, required [facility]. No family h/o [...] concerns. Appetite good, no edema OBJECTIVE Vitals: 08/10/22 1157 BP: 128/53 Pulse: 81 PHYSICAL EXAMINATION CONSTITUTIONAL: Conversant, well developed, NAD. [...] metformin, ok to continue for now -- Agree with discontinuation of Clonidine. Ok to hold vit d for 3 more months. Then would considerrestarting based on lab value. -- no other med changes, continue current regimen RTC 6 mo documented in this encounter Plan of Treatment Upcoming Encounters Date Type Department Care Team (Late st Contact Info) Description 02/18/2024 9:40 AM EST Office Visit [facility] [address] [place] [address] Delilah Calderon APRN [address] [address] documented as of this encounter Visit Diagnoses Diagnosis CKD (chronic kidney disease) stage 4, GFR 15-29 ml/min ([facility])- Primary Chronic kidney disease, Stage IV (severe) Essential hypertension Unspecified essential hypertension Hypervitaminosis D documented in this encounter Care Teams Rig Welder Relationship Specialty Start Date End Date Baljeet Hackett MD [address] [place] [address] PCP - General 07/19/20 documented as of this encounter
--- OUTSIDE RECORDS SUMMARY | 2024-02-15 23:00 | XMS_ITS | Encounter Summary ---
[facility] Address [address] [place] [address] Care Team Providers Care Custom Ski Maker Name Role Phone Baljeet Hackett MD Primary Care Provider [phone] Encounter Details Date Type Department Care Team (Late st Contact Info) Description 11/10/2016 External CPT II QA CONSULTANT - [facility] Social History Tobacco Use [...] on filedocumented in this encounter Care Teams Custom Ski Maker Relationship Specialty Start Date End Date Baljeet Hackett MD [address] [place] [id number] PCP - General Family Medicine 02/06/16 documented as of this encounter
--- OUTSIDE RECORDS SUMMARY | 2024-02-15 23:00 | XMS_ITS | Encounter Summary ---
[facility] Address [address] [place] [id number] Care Team Providers Care Transmitter Engineer Name Role Phone Baljeet Hackett MD Primary Care Provider [phone] Encounter Details Date Type Department Care Team (Late st Contact Info) Description 06/01/2017 External CPT II SLOT FLOOR ATTENDANT - [facility] Social History Tobacco Use [...] on filedocumented in this encounter Care Teams Transmitter Engineer Relationship Specialty Start Date End Date Baljeet Hackett MD [address] [place] [phone] PCP - General Family Medicine 02/06/16 documented as of this encounter
--- OUTSIDE RECORDS SUMMARY | 2024-02-15 23:00 | XMS_ITS | Encounter Summary ---
Author Organization Healthcare Address [address] [place] [address] Care Team Providers Care Glass Melt Operator Name Role Phone Baljeet Hackett MD Primary Care Provider [phone] Encounter Details Date Type Department Care Team (Latest Contact Info) Description 08/10/2022 Travel Social History Tobacco Use Types Packs/Day [...] Description 02/18/2024 9:40 AM EST Office Visit [facility] [address] [place] [address] Delilah Calderon, TETRYL BOILING TUB OPERATOR [address] [address] documented as of this encounter Visit Diagnoses Not on filedocumented in this encounter Care Teams Glass Melt Operator Relationship Specialty Start Date End Date Baljeet Hackett MD [address] [place] [address] PCP - General 07/19/20 documented as of this encounter
--- OUTSIDE RECORDS SUMMARY | 2024-02-15 23:00 | XMS_ITS | Encounter Summary ---
Author Organization Healthcare Address [address] [place] [address] Care Team Providers Care Shift Supervisor Melting Name Role Phone Baljeet Hackett MD Primary Care Provider [phone] Encounter Details Date Type Department Care Team (Late st Contact Info) Description 02/21/2021 Orders Only [facility] [address] [place] [address] Catherine Renteria Stage 3b chronic kidney disease (CMS/HCC) (Primary Dx); Vitamin D deficiency Social History Tobacco Use [...] Description 02/18/2024 9:40 AM EST Office Visit [facility] [address] [place] [address] Delilah Calderon, MAIL READER [address] [address] Scheduled Orders Name Type Priority Associated Diagnoses Orde r Schedule Renal Function Panel, Plasma Lab Routine Stage 3b chronic kidney disease (CMS/HCC) Expected: 03/06/2021 (Approximate), Expires: 02/21/2022 CBC and Differential Lab Routine Stage 3b chronic kidney disease (CMS/HCC) Expected: 03/06/2021 (Approximate), Expires: 02/21/2022 Creatinine, Random, Urine Lab Routine Stage 3b chronic kidney disease (CMS/HCC) Expected: 03/06/2021 (Approximate), Expires: 02/21/2022 Protein, Random, Urine Lab Routine Stage 3b chronic kidney disease (CMS/HCC) Expected: 03/06/2021 (Approximate), Expires: 02/21/2022 Urinalysis with reflex microscopic Lab Routine Stage 3b chronic kidney disease (CMS/HCC) Expected: 03/06/2021 (Approximate), Expires: 02/21/2022 PTH Intact Total Lab Routine Stage 3b chronic kidney disease (CMS/HCC) Expected: 03/06/2021 (Approximate), Expires: 02/21/2022 Vitamin D 25 Hydroxy Lab Routine Stage 3b chronic kidney disease (CMS/HCC) Vitamin D deficiency Expected: 03/06/2021 (Approximate), Expires: 02/21/2022 documented as of this encounter Visit Diagnoses Diagnosis Stage 3b chronic kidney disease (CMS/HCC)- Primary Vitamin D deficiency documented in this encounter Care Teams Shift Supervisor Melting Relationship Specialty Start Date End Date Baljeet Hackett MD [address] [place] [id number] PCP - General 07/19/20 documented as of this encounter
--- OUTSIDE RECORDS SUMMARY | 2024-02-15 23:01 | XMS_ITS | Encounter Summary ---
Author Organization [employer] Address [address] [place] [address] Care Team Providers Care Candy Spreader Helper Name Role Phone Unavailable Primary Care Provider Unavailabl e Encounter Details Date Type Department Care Team (Late st Contact Info) Description 02/04/2021 Transcribed Document [facility] [place] Family Medicine [address] [place] [address] ProviderDick MD [address] [place] [address] Social History Tobacco Use Types [...] Cerner Conversion Note - Historical ProviderMD - 02/04/2021 5:00 PM GLUING PRESSMAN Chart Check - Review Order Profile Entered On: 02/04/2021 16:44 EST Performed On: 02/04/2021 17:00 EST by Donna Boswell RN Chart Check Powerplans Initiated/Discontinued as Appropriate : Yes All Active Orders Reviewed : Yes Donna Boswell RN - 02/04/2021 16:44 EST Electronically signed by [facility] Conversion Chain Offbearer Cerner at 06/22/2022 7:26 PM CDT documented in this encounter Plan of Treatment Not on file documented as of this encounter Visit Diagnoses Not on filedocumented in this encounter
--- OUTSIDE RECORDS SUMMARY | 2024-02-15 23:01 | XMS_ITS | Encounter Summary ---
Author Organization [employer] Address [address] [place] [address] Care Team Providers Care Labor Commissioner Name Role Phone Unavailable Primary Care Provider Unavailabl e Encounter Details Date Type Department Care Team (Late st Contact Info) Description 02/04/2021 Historic Encounter [address] [address] ProviderFredrick Historical Social History Tobacco Use Types Packs/Day [...] Procedure Name Priority Date/Time Associated Diagnosis Comments AUTOMATED DIFFERENTIAL ([facility] DATA CONV) Routine 02/04/2021 5:50 AM EST documented in this encounter Results * (ABNORMAL) AUTOMATED DIFFERENTIAL ([facility] DATA CONV) (02/04/2021 5:50 AM EST) Neut% 73.6(H) 34.0 - 71.0 % 02/04/2021 11:08 AM EST Lymph% 15.3(L) 19.3 - 53.1 % 02/04/2021 11:08 AM EST [place]% 10.2(H) 3.0 - 9.0 % 02/04/2021 11:08 AM EST Eos% 0.1 0.0 - 7.0 % 02/04/2021 11:08 AM EST Baso% 0.1 0.0 - 1.5 % 02/04/2021 11:08 AM EST IG% 0.70(H) 0.00 - 0.60 % 02/04/2021 11:08 AM EST Neut# 6.89(H) 1.56 - 6.13 K/uL 02/04/2021 11:08 AM EST Lymph# 1.43 1.00 - 3.90 x10(3)/uL 02/04/2021 11:08 AM EST [place]# 0.96 0.16 - 1.00 K/uL 02/04/2021 11:08 AM EST Eos# 0.01 0.00 - 0.80 x10(3)/uL 02/04/2021 11:08 AM EST Baso# 0.01 0.00 - 0.20 x10(3)/uL 02/04/2021 11:08 AM EST IG# 0.07(H) 0.00 - 0.05 x10(3)/uL 02/04/2021 11:08 AM EST Blood 02/04/2021 5:50 AM EST 02/04/2021 11:[address] [facility] - 02/04/2021 11:09 AM EST Added by Discern Expert us Sle Historical Provider LAB BLOOD ORDERABLES Fi nal Result Performing Organization Address City/State/[facility] Co de Phone Number [facility] [address] [place] [id number] [phone] documented in this encounter Visit Diagnoses Not on filedocumented in this encounter
--- OUTSIDE RECORDS SUMMARY | 2024-02-15 23:01 | XMS_ITS | Encounter Summary ---
Author Organization [employer] Address [address] [place] [address] Care Team Providers Care Sql Report Writer Name Role Phone Unavailable Primary Care Provider Unavailabl e Encounter Details Date Type Department Care Team (Late st Contact Info) Description 02/05/2021 Historic Encounter [address] [address] Provider, [facility] Historical Social History Tobacco Use Types [...] Procedure Name Priority Date/Time Associated Diagnosis Comments GLUCOSE-POC Routine 02/05/2021 5:53 AM EST documented in this encounter Results * Glucose, Point of Care (02/05/2021 5:53 AM EST) Glucose POC2 105 70 - 110 mg/dL 02/05/2021 10:53 AM EST [facility] Boat Builder And Repairer [id number] 02/05/2021 10:53 AM EST [facility] Device SN [id number] 02/05/2021 10:53 AM EST [facility] Device Comment1 Notified Nurse RBV 02/05/2021 10:53 AM EST [facility] Blood 02/05/2021 5:53 AM EST 02/05/2021 10:55 AM EST [facility] Historical Provider POINT OF CARE TEST ORDE RABLES Final Result [facility] [address] [phone] documented in this encounter Visit Diagnoses Not on filedocumented in this encounter
--- OUTSIDE RECORDS SUMMARY | 2024-02-15 23:01 | XMS_ITS | Encounter Summary ---
Author Organization [employer] Address [address] [place] [address] Care Team Providers Care Botany Technician Name Role Phone Unavailable Primary Care Provider Unavailabl e Encounter Details Date Type Department Care Team (Late st Contact Info) Description 02/05/2021 Transcribed Document [facility] [place] Family Medicine [address] [place] [address] ProviderDick MD [address] [place] [address] Social History Tobacco Use Types [...] Cerner Conversion Note - Historical ProviderMD - 02/05/2021 5:00 AM BLOOD BANK LABORATORY TECHNOLOGIST Chart Check - Review Order Profile Entered On: 02/05/2021 4:47 EST Performed On: 02/05/2021 5:00 EST by Diana Marcelino NON EMP RN - INTERNATIONAL Chart Check Powerplans Initiated/Discontinued as Appropriate : Yes All Active Orders Reviewed : Yes Diana Marcelino NON EMP RN - INTERNATIONAL - 02/05/2021 4:47 EST documented in this encounter Plan of Treatment Not on file documented as of this encounter Visit Diagnoses Not on filedocumented in this encounter
--- OUTSIDE RECORDS SUMMARY | 2024-02-15 23:01 | XMS_ITS | Encounter Summary ---
Author Organization [facility] [employer] [facility] Address [address] [place] [id number] Care Team Providers Care Technical Professional Name Role Phone Unavailable Primary Care Provider Unavailabl e Encounter Details Date Type Department Care Team (Late st Contact Info) Description 02/05/2021 Transcribed Document [facility] [place] [facility] [place] [address] ProviderDick MD Formerly [facility] [place] [address] Social History Tobacco Use Types Packs/Day Years Used Date Smoking Tobacco: Never Assessed Comments Unknown Sex and Gender Information Value Date Recorded Sex Assigned at Female 09/02/2021 8:59 PM CDT Legal Sex Female 8:59 PM CDT Gender Identity Female 09/02/2021 8:59 PM CDT Sexual Orientation Not on file documented as of this encounter Miscellaneous Notes * Cerner Conversion Note - Dick ProviderMD - 02/05/2021 1:26 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 [place] [id number] [address] :1945 Visit Time:01/29/2021 Your Visit Summary Your Care Team Admitting Physician - JAYMIE PAGAN MD-INT Attending Physician - JOLIE PAGAN MD-FAM Primary Care Physician - KULDEEP YOON (REF)LANA Referring Physician - JOLIE PAGAN MD-FAM Your Diagnosis Acute respiratory distress syndrome, Acute respiratory distress syndrome Weakness These Are Your Goals No qualifying data available. Discharge Vitals Temperature 37.3 ??C Heart Rate (Monitored) 65 Respiratory Rate 17 Blood Pressure 153/70 What to do next Instructions From Your Care Team Medical Equipment for Home Use: As provided by [facility] Rehabilitation: As provided by [facility] Discharge Summary: MED Unit at [facility]. RN report # [phone]. Transportation: [facility] wheelchair van at 1430 Follow-Up Appointments Follow Up with Follow up with specialist When Within 1 to 2 weeks Comments nephrology Follow Up with Follow up with specialist When Within 2 to 5 weeks Comments Pulmonary Follow Up with Follow up with specialist When Within 1 to 2 weeks Comments cardiology Follow Up with Follow up with primary care provider When Within 2 to 3 days Medications What How Much When Instructions Next Dose albuterol-ipratropium (DuoNeb 0.5 mg-2.5 mg/ 3 mL inhalation solution) 3 Milliliter(s) Nebulized Inhalation Every Day as needed for Shortness of Breath as needed amLODIPine (amLODIPine 10 mg oral tablet) 1 Tablet(s) Oral Every Day 02/06 in AM atorvastatin (Lipitor 40 mg oral tablet) 1 Tablet(s) Oral At Bedtime 02/05 at bedtime carvedilol (Coreg 25 mg oral tablet) 1 Tablet(s) Oral Two Times A Day 02/05 in PM doxycycline (doxycycline 100 mg injection) 100 Milligram(s) IntraVENous Two Times A Day through then reevaluate per ID enoxaparin (Lovenox) 30 Milligram(s) SubCutaneous Interval Every 24 Hours 02/05 in AM famotidine (Pepcid 20 mg oral tablet) 1 Tablet(s) Oral Every Day 122 in AM hydrALAZINE (hydrALAZINE 50 mg oral tablet) 1 Tablet(s) Oral Every 8 Hours 02/05 at 10 PM hydrOXYzine (hydrOXYzine hydrochloride 10 mg oral tablet) 1 Tablet(s) Oral Every 6 Hours as needed for Anxiety as needed insulin lispro (insulin lispro 100 units/ mL injectable solution) Scale C: SubCutaneous Before Meals and at Bedtime at dinner isosorbide dinitrate (isosorbide dinitrate 10 mg oral tablet) 1 Tablet(s) Oral Every 8 Hours 02/05 at 10 PM lactobacillus acidophilus (lactobacillus acidophilus oral capsule) 1 Capsule(s) Oral Two Times A Day 02/05 in PM piperacillin-tazobactam (Zosyn 2 g-0.25 g intravenous injection) 2.25 Gram(s) IntraVENous Every 8 Hours through predniSONE (predniSONE 10 mg oral tablet) 3 Tablet(s) Oral Every Day Duration: 5 Day(s) 02/06 in AM cloNIDine (clonidine 0.3 mg oral tablet) 1 Tablet(s) Oral Two Times A Day 02/05 in PM furosemide (furosemide 40 mg oral tablet) 1 Tablet(s) Oral Every Day as needed for Other (See Comment) as needed levothyroxine (levothyroxine 100 mcg (0.1 mg) oral tablet) 1 Tablet(s) Oral Every Day 02/06 in AM Take your medications faithfully. Do NOT skip medication. Do NOT stop taking medications without the direction of a physician. Carry a list of your medications with you at all times, and take this medication list with you to your first follow up visit. Report any side effects. Avoid herbal remedies unless discussed with your physician. As part of your treatment plan, your physician may have prescribed a limited course of a controlled substance. This medication may be given to help people with moderate or severe pain or for other medical conditions, but there are risks involved with treatment. Common side effects may include nausea, constipation, drowsiness, sweating, itching, dry mouth, and rash. More serious side effects may include cognitive and motor impairment, like problems with thinking, concentrating, alertness, and movement (e.g. slowed reflexes), and driving and operating heavy machinery can be dangerous. It is important for you to talk to your physician if you have these side effects or questions. These controlled substances can produce physical dependence and be habit-forming if taken for an extended period of time, which means that the body has gotten used to them and may experience withdrawal symptoms if they are abruptly stopped. Withdrawal symptoms can include runny nose, sweating, goose bumps, diarrhea, abdominal cramping, rapid heartbeat, difficulty sleeping, and nervousness. Please dispose of unused and medications per your retail pharmacy guidance. Allergies No Known Allergies Immunizations This Visit No Immunizations Found Education Materials Hypertension, Adult High blood pressure (hypertension) is when the force of blood pumping through the arteries is too strong. The arteries are the blood vessels that carry blood from the heart throughout the body. Hypertension forces the heart to work harder to pump blood and may cause arteries to become narrow or stiff. Untreated or uncontrolled hypertension can cause a heart attack, heart failure, a stroke, kidney disease, and other problems. A blood pressure reading consists of a higher number over a lower number. Ideally, your blood pressure should be below 120/80. The first ( top ) number is called the systolic pressure. It is a measure of the pressure in your arteries as your heart beats. The second ( bottom ) number is called the diastolic pressure. It is a measure of the pressure in your arteries as the heart relaxes. What are the causes? The exact cause of this condition is not known. There are some conditions that result in or are related to high blood pressure. What increases the risk? Some risk factors for high blood pressure are under your control. The following factors may make you more likely to develop this condition: ??? Smoking. ??? Having type 2 diabetes mellitus, high cholesterol, or both. ??? Not getting enough exercise or physical activity. ??? Being overweight. ??? Having too much fat, sugar, calories, or salt (sodium) in your diet. ??? Drinking too much alcohol. Some risk factors for high blood pressure may be difficult or impossible to change. Some of these factors include: ??? Having chronic kidney disease. ??? Having a family history of high blood pressure. ??? Age. Risk increases with age. ??? Race. You may be at higher risk if you are . ??? Gender. Men are at higher risk than women before age 45. After age 65, women are at higher risk than men. ??? Having obstructive sleep apnea. ??? Stress. What are the signs or symptoms? High blood pressure may not cause symptoms. Very high blood pressure (hypertensive crisis) may cause: ??? Headache. ??? Anxiety. ??? Shortness of breath. ??? Nosebleed. ??? Nausea and vomiting. ??? Vision changes. ??? Severe chest pain. ??? Seizures. How is this diagnosed? This condition is diagnosed by measuring your blood pressure while you are seated, with your arm resting on a flat surface, your legs uncrossed, and your feet flat on the floor. The cuff of the blood pressure monitor will be placed directly against the skin of your upper arm at the level of your heart. It should be measured at least twice using the same arm. Certain conditions can cause a difference in blood pressure between your right and left arms. Certain factors can cause blood pressure readings to be lower or higher than normal for a short period of time: ??? When your blood pressure is higher when you are in a health care provider's office than when you are at home, this is called white coat hypertension. Most people with this condition do not need medicines. ??? When your blood pressure is higher at home than when you are in a health care provider's office, this is called masked hypertension. Most people with this condition may need medicines to control blood pressure. If you have a high blood pressure reading during one visit or you have normal blood pressure with other risk factors, you may be asked to: ??? Return on a different day to have your blood pressure checked again. ??? Monitor your blood pressure at home for 1 week or longer. If you are diagnosed with hypertension, you may have other blood or imaging tests to help your health care provider understand your overall risk for other conditions. How is this treated? This condition is treated by making healthy lifestyle changes, such as eating healthy foods, exercising more, and reducing your alcohol intake. Your health care provider may prescribe medicine if lifestyle changes are not enough to get your blood pressure under control, and if: ??? Your systolic blood pressure is above 130. ??? Your diastolic blood pressure is above 80. Your personal target blood pressure may vary depending on your medical conditions, your age, and other factors. Follow these instructions at home: Eating and drinking ??? Eat a diet that is high in fiber and potassium, and low in sodium, added sugar, and fat. An example eating plan is called the DASH (Dietary Approaches to Stop Hypertension) diet. To eat this way: ? Eat plenty of fresh fruits and vegetables. Try to fill one half of your plate at each meal with fruits and vegetables. ? Eat whole grains, such as whole-wheat pasta, brown rice, or whole-grain bread. Fill about one fourth of your plate with whole grains. ? Eat or drink low-fat dairy products, such as skim milk or low-fat yogurt. ? Avoid fatty cuts of meat, processed or cured meats, and poultry with skin. Fill about one fourth of your plate with lean proteins, such as fish, chicken without skin, beans, eggs, or tofu. ? Avoid pre-made and processed foods. These tend to be higher in sodium, added sugar, and fat. ??? Reduce your daily sodium intake. Most people with hypertension should eat less than 1,500 mg of sodium a day. ??? Do not drink alcohol if: ? Your health care provider tells you not to drink. ? You are , may be , or are planning to become . ??? If you drink alcohol: ? Limit how much you use to: ? 0???1 drink a day for women. ? 0???2 drinks a day for men. ? Be aware of how much alcohol is in your drink. In the [place] one drink equals one 12 oz bottle of beer (355 mL), one 5 oz glass of wine (148 mL), or one 1?? oz glass of hard liquor (44 mL). Lifestyle ??? Work with your health care provider to maintain a healthy body weight or to lose weight. Ask what an ideal weight is for you. ??? Get at least 30 minutes of exercise most days of the week. Activities may include walking, swimming, or biking. ??? Include exercise to strengthen your muscles (resistance exercise), such as Pilates or lifting weights, as part of your weekly exercise routine. Try to do these types of exercises for 30 minutes at least 3 days a week. ??? Do not use any products that contain nicotine or tobacco, such as cigarettes, e-cigarettes, and chewing tobacco. If you need help quitting, ask your health care provider. ??? Monitor your blood pressure at home as told by your health care provider. ??? Keep all follow-up visits as told by your health care provider. This is important. Medicines ??? Take wklc-yva-mwpzack and prescription medicines only as told by your health care provider. Follow directions carefully. Blood pressure medicines must be taken as prescribed. ??? Do not skip doses of blood pressure medicine. Doing this puts you at risk for problems and can make the medicine less effective. ??? Ask your health care provider about side effects or reactions to medicines that you should watch for. Contact a health care provider if you: ??? Think you are having a reaction to a medicine you are taking. ??? Have headaches that keep coming back (recurring). ??? Feel dizzy. ??? Have swelling in your ankles. ??? Have trouble with your vision. Get help right away if you: ??? Develop a severe headache or confusion. ??? Have unusual weakness or numbness. ??? Feel faint. ??? Have severe pain in your chest or abdomen. ??? Vomit repeatedly. ??? Have trouble breathing. Summary ??? Hypertension is when the force of blood pumping through your arteries is too strong. If this condition is not controlled, it may put you at risk for serious complications. ??? Your personal target blood pressure may vary depending on your medical conditions, your age, and other factors. For most people, a normal blood pressure is less than 120/80. ??? Hypertension is treated with lifestyle changes, medicines, or a combination of both. Lifestyle changes include losing weight, eating a healthy, low-sodium diet, exercising more, and limiting alcohol. This information is not intended to replace advice given to you by your health care provider. Make sure you discuss any questions you have with your health care provider. Document Revised: 11/02/2018 Document Reviewed: 11/02/2018 [employer] Patient Education ?? 2020 [employer]. Acute Respiratory Distress Syndrome, Adult Acute respiratory distress syndrome (ARDS) is a life-threatening condition. The lungs become swollen and blood vessels leak fluid into the air sacs (alveoli). This prevents the lungs from working well. It also makes it hard to get oxygen into the blood. This can damage other vital organs, such as the heart, kidneys, liver, or brain. You will need intensive care in a hospital. What are the causes? The condition usually develops as a result of a major illness, surgery, injury, or widespread infection (sepsis). Common causes of the condition include: ??? An infection in the blood or lungs. ??? A serious injury to the chest. ??? A serious injury that causes low blood pressure. ??? A major surgery. ??? Breathing in harmful chemicals, smoke, or water. ??? Blood transfusions. ??? Breathing in vomit (aspiration). ??? Inflammation of the pancreas (pancreatitis). What are the signs or symptoms? The main symptoms of this condition are sudden shortness of breath and rapid shallow breathing. Other symptoms may include: ??? A fast or irregular heartbeat. ??? Crackles in the lungs. ??? Skin, lips, or fingernails that look blue (cyanosis). ??? Confusion. ??? Tiredness or loss of energy. ??? Chest pain, particularly while taking a breath. ??? Coughing. ??? Restlessness or anxiety. ??? Fever. This is usually present if there is an underlying infection, such as pneumonia. How is this diagnosed? This condition is diagnosed based on: ??? Medical history, including your symptoms. ??? Physical exam. You may also have other tests, including: ??? A test that measures the percentage of oxygen in your blood (pulse oximetry). This is done with a sensor that is placed on your finger, toe, or earlobe. ??? Blood tests. ??? Chest X-rays or CT scans to look for fluid in the lungs. You may also have tests to rule out other conditions, including: ??? Taking a sample of your sputum to test for infection. ??? Heart tests, such as an echocardiogram or electrocardiogram. These tests check for blood flow and the proper functioning of the heart. ??? Taking a sample of your urine to test for infection or kidney problems. ??? Bronchoscopy. During this test, a thin, flexible tube with a light is passed into the mouth or nose, down the windpipe, and into the lungs. How is this treated? The treatment goal is to support you while your lungs heal and the underlying cause is treated. Treatment may include: ??? Oxygen therapy. ??? Noninvasive ventilation: A device such as a continuous positive airway pressure (CPAP) or bi-level positive airway pressure (BPAP) machine may be used to help you breathe. The device gives you oxygen and pressure through a mask or helmet. ??? Positioning you to lie on your stomach (prone position). ??? A breathing machine (ventilator) may be used to help you breathe. This device gives oxygen and pressure through a tube that is put through your mouth into the windpipe (trachea) to help you breathe. ? If this treatment is needed longer term, a tracheostomy may be placed. A tracheostomy is a breathing tube put through your neck directly into the trachea. ??? Fluid and medicine is given through an IV. ??? Medicines may be given to: ? Help you relax (sedatives). ? Treat blood pressure. ? Treat infection (antibiotics). ? Prevent blood clots (anticoagulants). ? Help get rid of excess fluid (diuretics). ??? In severe cases, extracorporeal life support (ECLS) may be used. This treatment temporarily takes over the function of the heart and lungs, supplying oxygen and removing carbon dioxide. ECLS gives the lungs a chance to rest and recover. Follow these instructions at home: Medicines ??? Take fbpl-wzm-pfiirti and prescription medicines only as told by your health care provider. ??? If you were prescribed an antibiotic medicine, take it as told by your health care provider. Do not stop using the antibiotic even if you start to feel better. ??? If you are taking blood thinners: ? Talk with your health care provider before you take any medicines that contain aspirin or NSAIDs, such as ibuprofen. These medicines increase your risk for dangerous bleeding. ? Take your medicine exactly as told, at the same time every day. ? Avoid activities that could cause injury or bruising, and follow instructions about how to prevent falls. ? Wear a medical alert bracelet or carry a card that lists what medicines you take. Lifestyle ??? Do not use any products that contain nicotine or tobacco, such as cigarettes, e-cigarettes, and chewing tobacco. If you need help quitting, ask your health care provider. ??? Do not drink alcohol if your health care provider tells you not to drink. ??? Rest and return to your normal activities as told by your health care provider. Ask your health care provider what activities are safe for you. ??? It may take a while for you to get back to your normal activities and routine. ? Ask friends and family to help you if daily activities make you tired. ? Attend any physical or pulmonary rehabilitation as told by your health care provider. This can help with muscle weakness and shortness of breath. ? You may feel depressed, anxious or have trouble with memory and concentration. Talk with your health care provider about ways to help you feel better. General instructions ??? Wear compression stockings as told by your health care provider. These stockings help to prevent blood clots and reduce swelling in your legs. ??? Keep all follow-up visits as told by your health care provider. This is important. Where to find more information ??? [place] [employer]: https://www.lung.org/ ??? ARDS Foundation: https://ardsglobal.org/ ??? National Institutes of Health: https://www.nhlbi.nih.gov/ Contact a health care provider if: ??? You become short of breath during activity or while resting. ??? You develop a cough that does not go away. ??? You have a fever. ??? Your symptoms do not get better or they get worse. ??? You become anxious or depressed. Get help right away if: ??? You have trouble breathing. ??? You develop a rapid heart rate. ??? You develop sudden chest pain that does not go away. ??? You develop swelling or pain in one of your legs. ??? You cough up blood. ??? Your skin, lips, or fingernails turn blue. These symptoms may represent a serious problem that is an emergency. Do not wait to see if the symptoms will go away. Get medical help right away. Call your local emergency services (911 in the [place] Do not drive yourself to the hospital. Summary ??? Acute respiratory distress syndrome is a life-threatening condition in which fluid collects in the lungs. This can cause the lungs and other vital organs to fail. ??? The condition usually develops following a major illness, surgery, injury or widespread infection (sepsis). ??? If you were prescribed an antibiotic medicine, take it as told by your health care provider. Do not stop using the antibiotic even if you start to feel better. ??? Do not use any products that contain nicotine or tobacco, such as cigarettes, e-cigarettes, and chewing tobacco. If you need help quitting, ask your health care provider. This information is not intended to replace advice given to you by your health care provider. Make sure you discuss any questions you have with your health care provider. Document Revised: 04/08/2020 Document Reviewed: 03/21/2020 [employer] Patient Education ?? 2020 [employer] Weakness Weakness is a lack of strength. You may feel weak all over your body (generalized), or you may feel weak in one specific part of your body (focal). Common causes of weakness include: ??? Infection and immune system disorders. ??? Physical exhaustion. ??? Internal bleeding or other blood loss that results in a lack of red blood cells (anemia). ??? Dehydration. ??? An imbalance in mineral (electrolyte) levels, such as potassium. ??? Heart disease, circulation problems, or stroke. Other causes include: ??? Some medicines or cancer treatment. ??? Stress, anxiety, or depression. ??? Nervous system disorders. ??? Thyroid disorders. ??? Loss of muscle strength because of age or inactivity. ??? Poor sleep quality or sleep disorders. The cause of your weakness may not be known. Some causes of weakness can be serious, so it is important to see your health care provider. Follow these instructions at home: Activity ??? Rest as needed. ??? Try to get enough sleep. Most adults need 7???8 hours of quality sleep each night. Talk to your health care provider about how much sleep you need each night. ??? Do exercises, such as arm curls and leg raises, for 30 minutes at least 2 days a week or as told by your health care provider. This helps build muscle strength. ??? Consider working with a physical therapist or horse trainer who can develop an exercise plan to help you gain muscle strength. General instructions ??? Take jlku-gmo-ekvowms and prescription medicines only as told by your health care provider. ??? Eat a healthy, well-balanced diet. This includes: ? Proteins to build muscles, such as lean meats and fish. ? Fresh fruits and vegetables. ? Carbohydrates to boost energy, such as whole grains. ??? Drink enough fluid to keep your urine pale yellow. ??? Keep all follow-up visits as told by your health care provider. This is important. Contact a health care provider if your weakness: ??? Does not improve or gets worse. ??? Affects your ability to think clearly. ??? Affects your ability to do your normal daily activities. Get help right away if you: ??? Develop sudden weakness, especially on one side of your face or body. ??? Have chest pain. ??? Have trouble breathing or shortness of breath. ??? Have problems with your vision. ??? Have trouble talking or swallowing. ??? Have trouble standing or walking. ??? Are light-headed or lose consciousness. Summary ??? Weakness is a lack of strength. You may feel weak all over your body or just in one specific part of your body. ??? Weakness can be caused by a variety of things. In some cases, the cause may be unknown. ??? Rest as needed, and try to get enough sleep. Most adults need 7???8 hours of quality sleep each night. ??? Eat a healthy, well-balanced diet. This information is not intended to replace advice given to you by your health care provider. Make sure you discuss any questions you have with your health care provider. Document Revised: 09/28/2018 Document Reviewed: 09/28/2018 [employer] Patient Education ?? 2020 [employer] Acute Respiratory Failure, Adult Acute respiratory failure is a condition that is a medical emergency. It can develop quickly, and it should be treated right away. There are two types of acute respiratory failure: ??? Type I respiratory failure is when the lungs are not able to get enough oxygen into the blood. This causes the blood oxygen level to drop. ??? Type II respiratory failure is when carbon dioxide is not passing from the lungs out of the body. This causes carbon dioxide to build up in the blood. A person may have one type of acute respiratory failure or have both types at the same time. What are the causes? Common causes of type I respiratory failure include: ??? Trauma to the lung, chest, ribs, or tissues around the lung. ??? Pneumonia. ??? Lung diseases, such as pulmonary fibrosis or asthma. ??? Smoke, chemical, or water inhalation. ??? A blood clot in the lungs (pulmonary embolism). ??? A blood infection (sepsis). ??? Heart attack. Common causes of type II respiratory failure include: ??? Stroke. ??? A spinal cord injury. ??? A drug or alcohol overdose. ??? A blood infection (sepsis). ??? Cardiac arrest. What increases the risk? This condition is more likely to develop in people who have: ??? Lung diseases such as asthma or chronic obstructive pulmonary disease (COPD). ??? A condition that damages or weakens the muscles, nerves, bones, or tissues that are involved in breathing, such as myasthenia gravis or Guillain???Crandall?? syndrome. ??? A serious infection. ??? A health problem that blocks the unconscious reflex that is involved in breathing, such as hypothyroidism or sleep apnea. What are the signs or symptoms? Trouble breathing is the main symptom of acute respiratory failure. Symptoms may also include: ??? Fast breathing. ??? Restlessness or anxiety. ??? Breathing loudly (wheezing) and grunting. ??? Fast or irregular heartbeats (palpitations). ??? Confusion or changes in behavior. ??? Feeling tired (fatigue), sleeping more than normal, or being hard to wake. ??? Skin, lips, or fingernails that appear blue (cyanosis). How is this diagnosed? This condition may be diagnosed based on: ??? Your medical history and a physical exam. Your health care provider will listen to your heart and lungs to check for abnormal sounds. ??? Tests to confirm the diagnosis and determine the cause of respiratory failure. These tests may include: ? Measuring the amount of oxygen in your blood (pulse oximetry). The measurement comes from a small device that is placed on your finger, earlobe, or toe. ? Blood tests to measure blood oxygen and carbon dioxide and to look for signs of infection. ? Tests on a sample of the fluid that surrounds the spinal cord (cerebrospinal fluid) or a sample of fluid that is drawn from the windpipe (trachea) to check for infections. ? Chest X-ray. ? Electrocardiogram (ECG) to look at the heart's electrical activity. How is this treated? Treatment for this condition usually takes place in a hospital intensive care unit (ICU). Treatment depends on what is causing the condition. It may include one or more of these treatments: ??? Oxygen may be given through your nose or a face mask. ??? A device such as a continuous positive airway pressure (CPAP) machine or bi-level positive airway pressure (BPAP) machine may be used to help you breathe. The device gives you oxygen and pressure. ??? Breathing treatments, fluids, and other medicines may be given. ??? A ventilator may be used to help you breathe. The machine gives you oxygen and pressure. A tube is put into your mouth and trachea to connect the ventilator. ? If this treatment is needed longer term, a tracheostomy may be placed. A tracheostomy is a breathing tube put through your neck into your trachea. ??? In extreme cases, extracorporeal life support (ECLS) may be used. This treatment temporarily takes over the function of the heart and lungs, supplying oxygen and removing carbon dioxide. ECLS gives the lungs a chance to recover. Follow these instructions at home: Medicines ??? Take fcvc-gqw-tyopvbn and prescription medicines only as told by your health care provider. ??? If you were prescribed an antibiotic medicine, take it as told by your health care provider. Do not stop using the antibiotic even if you start to feel better. ??? If you are taking blood thinners: ? Talk with your health care provider before you take any medicines that contain aspirin or NSAIDs, such as ibuprofen. These medicines increase your risk for dangerous bleeding. ? Take your medicine exactly as told, at the same time every day. ? Avoid activities that could cause injury or bruising, and follow instructions about how to prevent falls. ? Wear a medical alert bracelet or carry a card that lists what medicines you take. General instructions ??? Return to your normal activities as told by your health care provider. Ask your health care provider what activities are safe for you. ??? Do not use any products that contain nicotine or tobacco, such as cigarettes, e-cigarettes, and chewing tobacco. If you need help quitting, ask your health care provider. ??? Do not drink alcohol if: ? Your health care provider tells you not to drink. ? You are , may be , or are planning to become . ??? Wear compression stockings as told by your health care provider. These stockings help to prevent blood clots and reduce swelling in your legs. ??? Attend any physical therapy and pulmonary rehabilitation as told by your health care provider. ??? Keep all follow-up visits as told by your health care provider. This is important. How is this prevented? If you have an infection or a medical condition that may lead to acute respiratory failure, make sure you get proper treatment. Contact a health care provider if: ??? You have a fever. ??? Your symptoms do not improve or they get worse. Get help right away if: ??? You are having trouble breathing. ??? You lose consciousness. ??? You develop a fast heart rate. ??? Your fingers, lips, or other areas turn blue. ??? You are confused. These symptoms may represent a serious problem that is an emergency. Do not wait to see if the symptoms will go away. Get medical help right away. Call your local emergency services (911 in the .[place] Do not drive yourself to the hospital. Summary ??? Acute respiratory failure is a medical emergency. It can develop quickly, and it should be treated right away. ??? Treatment for this condition usually takes place in a hospital intensive care unit (ICU). Treatment may include oxygen, fluids, and medicines. A device may be used to help you breathe, such as a ventilator. ??? Take zmot-jql-cbkxils and prescription medicines only as told by your health care provider. ??? Contact a health care provider if your symptoms do not improve or if they get worse. This information is not intended to replace advice given to you by your health care provider. Make sure you discuss any questions you have with your health care provider. Document Revised: 02/09/2020 Document Reviewed: 02/09/2020 [employer] Patient Education ?? 2020 [employer]. Emergency Awareness and Preventative Care STROKE is an EMERGENCY Every Minute Counts Act FAST and Check for these signs: FACE Does the face look uneven? ARM Does one arm drift down? SPEECH Does their speech sound strange? TIME Call at any sign of stroke Stroke Risk Factors Atrial Fibrillation (irregular heartbeat) Diabetes Family history of stroke Heart Disease Heavy alcohol use High Blood Pressure High Cholesterol Physical inactivity and obesity Smoking Cigarette Smoking The facts are clear, cigarette smoking will shorten your life. Smoking can cause many illnesses along the way. As a healthcare provider, we recommend that you stop smoking. Assistance with quitting is available by contacting 3-511-ZFCQ-NOW. This is a free resource providing counseling, support, and referral. Or you may contact your personal physician. National Suicide Prevention Lifeline: The National Suicide Prevention Lifeline is a national network of local crisis centers that provides free and confidential emotional support to people in suicidal crisis or emotional distress 24 hours a day, 7 days a week. Don't Wait! Stop a Heart Attack Before it Starts What is a heart attack? A heart attack is damage or to a part of the heart from severely decreased or lack of blood flow to the heart. Over time, arteries can become narrow from the buildup of fat and cholesterol, which is called plaque. The plaque can rupture causing a blood clot to form. When the blood clot forms, the artery can become severely narrowed or completely blocked, causing a heart attack. Heart attack is the leading cause of in the [place]. 85% of muscle damage occurs within the first 2 hours. Delay in the recognition of heart attack symptoms increases the chances of . Know the early symptoms of a heart attack: Nausea Feeling of fullness in chest Jaw Pain Pain that travels down one or both arms Fatigue/being tired Anxiety Back Pain Chest pressure, squeezing, or discomfort Shortness of breath Sweating, or a cold sweat Feeling of impending doom There are unusual signs of a heart attack, too! Women, the elderly, and diabetics may present with atypical symptoms: Fainting/dizziness Weakness Confusion Risk Factors for a Heart Attack Some heart disease risk factors, such as age and family history, cannot be changed. Others, like smoking and lack of exercise, can be changed. Smoking High Cholesterol High Blood Pressure Family History Obesity Age Gender (Males are at higher risk) Lack of Exercise Diabetes Diet Stress Excessive Alcohol Intake If you or someone you know is experiencing the signs and symptoms of a heart attack, DON???T DELAY. Call immediately and seek help. If someone collapses, perform CPR! Do not attempt to drive if you are having symptoms of heart attack. Hands-Only CPR Why Hands-Only CPR? Hands-Only CPR has been shown to be as effective as conventional CPR for cardiac arrests that occur outside of a hospital. Survival depends on immediately receiving CPR from someone nearby. How do you perform Hands-Only CPR? There are two easy steps: Call if you see a teen or adult collapse Push hard and fast in the center of the chest at a beat of 100 beats per minute. Save a life! 4 WAYS TO GET AHEAD OF SEPSIS SEPSIS is a MEDICAL EMERGENCY. Time matters! Infections put you and your family at risk for a life-threatening condition called sepsis. Sepsis is the body's extreme response to an infection. It is life-threatening, and without timely treatment, sepsis can rapidly lead to tissue damage, organ failure, and . Sepsis happens when an infection you already have-in your skin, lungs, urinary tract or somewhere else-triggers a chain reaction throughout your body. 1 PREVENT INFECTIONS Take good care of chronic conditions. Talk to your doctor about getting the recommended vaccines. 2 PRACTICE GOOD HYGIENE Wash your hands frequently. Keep cuts or open sores clean and covered until they are healed. 3 KNOW THE SYMPTOMS Confusion or disorientation Shortness of breath High heart rate Fever, shivering, or feeling very cold Extreme pain or discomfort Clammy or sweaty skin 4 ACT FAST Get medical care IMMEDIATELY if you suspect sepsis or if you have an infection that is not getting better or is getting worse. To learn more about sepsis and how to prevent infections, visit www.cdc.gov/sepsis. Test Results Laboratory or Other Results This Visit (last charted value for your 01/29/2021 visit) Blood Gases 02/01/2021 6:31 AM HCO3 Art: 22.1 mmol/L -- Normal range between ( 20.0 and 26.0 ) sO2 Art: >99.1 % -- Normal range between ( 95.0 and 100.0 ) pCO2 Art: 34.8 mmHg -- Normal range between ( 35.0 and 45.0 ) pH Art: 7.41 -- Normal range between ( 7.35 and 7.45 ) pO2 Art: 132.0 mmHg -- Normal range between ( 80.0 and 100.0 ) ABG Num of Draw Attempts: 1 Acceptable Davis's Test Art: Not Applicable BE Art: -2.2 mmol/L Oxygen Flow Rate Art: 3.0 Liter Delivery Device Type Art: Cannula tHb Art: 8.9 Gram/dL -- Normal range between ( 12.0 and 18.0 ) Ventilator Mode Art: N/A Temperature, F Art: 98.6 Deg F FHHb: <2.4 % Art Blood Gas (ABG) Site: Arterial Line 01/31/2021 10:57 AM Comment Art: supine FIO2 Art: 50 Pressure Support Art: 10.0 cmH2O Respiratory Rate Art: 19.0 CPAP/PEEP Art: 5.0 cmH2O PaO2/FiO2 calculated: 390 01/31/2021 6:11 AM Set Rate Art: 16.0 Tidal Volume Set Art: 400.0 mL 01/30/2021 5:57 AM ctO2: 11.7 mmol/L Hematology 02/05/2021 7:21 AM WBC: 9.8 K/uL -- Normal range between ( 4.5 and 10.5 ) RBC: 3.12 Million/uL -- Normal range between ( 3.93 and 5.22 ) Hct: 28.8 % -- Normal range between ( 34.1 and 44.9 ) Hgb: 9.7 g/dL -- Normal range between ( 11.2 and 15.7 ) Platelet Count: 230 K/uL -- Normal range between ( 163 and 369 ) MCH: 31.1 pg -- Normal range between ( 25.6 and 32.2 ) MCHC: 33.7 Gram/dL -- Normal range between ( 32.2 and 36.5 ) MCV: 92.3 fL -- Normal range between ( 79.0 and 94.8 ) Slide Review: No Eos %: 0.7 % -- Normal range between ( 0.0 and 7.0 ) Mcdonough #: 1.39 K/uL -- Normal range between ( 0.16 and 1.00 ) Eos #: 0.07 x10(3)/uL -- Normal range between ( 0.00 and 0.80 ) Mcdonough %: 14.2 % -- Normal range between ( 3.0 and 9.0 ) Baso %: 0.1 % -- Normal range between ( 0.0 and 1.5 ) Baso #: 0.01 x10(3)/uL -- Normal range between ( 0.00 and 0.20 ) RDW: 16.2 % -- Normal range between ( 11.7 and 14.9 ) Neut %: 62.3 % -- Normal range between ( 34.0 and 71.0 ) Neut #: 6.12 K/uL -- Normal range between ( 1.56 and 6.13 ) Lymph %: 21.8 % -- Normal range between ( 19.3 and 53.1 ) Lymph #: 2.14 x10(3)/uL -- Normal range between ( 1.00 and 3.90 ) MPV: 10.9 fL -- Normal range between ( 9.4 and 12.4 ) IG#: 0.09 x10(3)/uL -- Normal range between ( 0.00 and 0.05 ) IG%: 0.90 % -- Normal range between ( 0.00 and 0.60 ) nRBC: 0.070 -- Normal range between ( 0.000 and 0.012 ) 02/03/2021 2:45 AM Band Percent Man: 1 % -- Normal range between ( 5 and 11 ) Hypochromia: 1+ RBC Morphology: Abnormal Mcdonough Percent Man: 6 % -- Normal range between ( 4 and 5 ) Ovalocytes: 1+ Baso Percent Man: 0 % -- Normal range between ( 0 and 1 ) Neutrophil Percent Man: 87 % -- Normal range between ( 50 and 65 ) Eos Percent Man: 0 % -- Normal range between ( 0 and 3 ) Anisocytosis: 1+ Platelet Ct Estimate: Adequate Poikilocytosis: 1+ Lymph Percent Man: 6 % -- Normal range between ( 24 and 44 ) 02/02/2021 3:24 AM Sed Rate Auto: 34 mm/Hr -- Normal range between ( 0 and 30 ) 01/30/2021 0:12 AM Macrocytosis: 1+ Microbiology 02/01/2021 9:49 AM MRSA Surveillance: See Result 01/30/2021 10:46 AM Culture Bronch Wash and Stain: See Result Specimen Source: RLL Micro Comments: sero sang 01/30/2021 8:56 AM SARS-CoV-2 (COVID19 PCR): Negative 01/30/2021 3:30 AM Sputum Culture: See Result 01/30/2021 0:14 AM Blood Culture: See Result General Chemistry 02/05/2021 10:54 AM Glucose POC2: 297 mg/dL -- Normal range between ( 70 and 110 ) Device Comment 1: Device Comment 1 02/05/2021 7:21 AM Creatinine Level: 2.00 mg/dL -- Normal range between ( 0.55 and 1.02 ) Sodium Level: 143 mmol/L -- Normal range between ( 136 and 146 ) Potassium Level: 3.9 mmol/L -- Normal range between ( 3.5 and 5.1 ) Chloride Level: 115 mmol/L -- Normal range between ( 102 and 112 ) Carbon Dioxide Level: 22 mmol/L -- Normal range between ( 21 and 32 ) Anion Gap: 10 -- Normal range between ( 9 and 20 ) Bilirubin Total: 0.5 mg/dL -- Normal range between ( 0.2 and 1.2 ) A/G Ratio: 0.7 -- Normal range between ( 1.1 and 2.5 ) ALT: 19 Units/Liter -- Normal range between ( 13 and 56 ) AST: 21 Units/Liter -- Normal range between ( 5 and 37 ) Globulin: 3.3 Gram/dL -- Normal range between ( 1.5 and 4.5 ) Alk Phos: 40 Units/Liter -- Normal range between ( 27 and 136 ) Bun/Creatinine: 21.0 -- Normal range between ( 8.0 and 20.0 ) Calcium Ionized: 1.07 mmol/L -- Normal range between ( 1.12 and 1.32 ) Calcium Level: 7.9 mg/dL -- Normal range between ( 8.4 and 10.1 ) eGFR : 30 mL/min/1.73m2 eGFR NonAfrican: 24 mL/min/1.73m2 Glucose Level: 109 mg/dL -- Normal range between ( 74 and 106 ) Magnesium Level: 2.0 mg/dL -- Normal range between ( 1.5 and 2.4 ) Blood Urea Nitrogen: 42 mg/dL -- Normal range between ( 7 and 22 ) Protein Total: 5.6 Gram/dL -- Normal range between ( 6.4 and 8.2 ) Albumin Level: 2.3 Gram/dL -- Normal range between ( 3.4 and 5.0 ) 02/04/2021 8:00 AM Lactic Acid Level: 0.9 mmol/L -- Normal range between ( 0.4 and 2.0 ) 02/04/2021 5:50 AM CRP: 1.70 mg/dL -- Normal range between ( 0.00 and 0.30 ) Lactate Dehydrogenase: 264 Units/Liter -- Normal range between ( 84 and 246 ) Phosphorus: 2.5 mg/dL -- Normal range between ( 2.5 and 4.9 ) 01/31/2021 3:19 AM Hgb A1C: 7.7 % eAVG Glucose: 174 mg/dL 01/30/2021 0:12 AM Ammonia Level: 23.0 uMol/L -- Normal range between ( 11.0 and 32.0 ) Body Fluid 01/30/2021 10:46 AM Body Fluid Type: BAL Fl Neutrophils Body Fluid: 95 % -- Normal range between ( 0 and 25 ) Color BF: Yellow Appearance BF: Cloudy UMCs Body Fluid: 3 % Monocytes Body Fluid: 2 % -- Normal range between ( 0 and 65 ) WBC/Nucleated Cells BF: 1213 /uL -- Normal range between ( 0 and 09788 ) RBC Count BF: 1150 /uL -- Normal range between ( 0 and 12150 ) Body Fluid Review for Pathologist: Body Fluid Review for Pathologist Cardiac Specific Markers 01/29/2021 10:54 PM Troponin I Ultra: 0.771 ng/mL -- Normal range between ( 0.015 and 0.045 ) ProBNP: 2987 pg/mL -- Normal range between ( 0 and 125 ) Coagulation 02/04/2021 5:50 AM Fibrinogen Level: 339 mg/dL -- Normal range between ( 220 and 440 ) 01/29/2021 10:54 PM INR: 1.2 -- Normal range between ( 0.9 and 1.2 ) PTT: 31.8 Second(s) -- Normal range between ( 22.0 and 33.0 ) PT: 12.5 Second(s) -- Normal range between ( 9.2 and 12.0 ) Endocrinology 02/04/2021 5:50 AM Procalcitonin: 4.31 ng/mL -- Normal range between ( 0.00 and 2.00 ) 01/30/2021 10:53 AM FT4: 1.69 ng/dL -- Normal range between ( 0.76 and 1.46 ) 01/29/2021 10:54 PM TSH: 1.910 mcInt Units/mL -- Normal range between ( 0.358 and 3.740 ) Infectious Disease 02/02/2021 5:14 PM Legionella Urine Ag: Negative 02/01/2021 9:49 AM Strep pneumoniae Direct Antigen: Negative Computed Tomography 01/30/2021 2:[address] Chest WO: CT Chest WO Diagnostic Radiology 02/05/2021 8:10 AM CR Chest 1 Vw Portable: CR Chest 1 Vw Portable 02/01/2021 8:30 PM CR Abdomen 1 Vw Portable: CR Abdomen 1 Vw Portable Echo 01/30/2021 6:59 AM EC Echo Complete: EC Echo Complete Patient Name:CISCO CAZARES I have received and understand this information and was given the opportunity to ask questions. Patient/Straddle Carrier Operator Name: Patient/Straddle Carrier Operator Signature: Relationship to Patient: Clinician/Hospital Straddle Carrier Operator Signature: Date: documented in this encounter Plan of Treatment Not on file documented as of this encounter Visit Diagnoses Not on filedocumented in this encounter
--- OUTSIDE RECORDS SUMMARY | 2024-02-15 23:01 | XMS_ITS | Encounter Summary ---
Author Organization [employer] [employer] Address [address] [place] [id number] Care Team Providers Care Death Claim Clerk Name Role Phone Unavailable Primary Care Provider Unavailabl e Encounter Details Date Type Department Care Team (Late st Contact Info) Description 02/05/2021 Transcribed Document [facility] [address] [place] [address] ProviderDick MD [address] [place], [place] [id number] Social History Tobacco Use Types Packs/Day Years [...] Conversion Note - Historical ProviderMD - 02/05/2021 1:23 PM [employer] HATCH[employer] MAN Stroke/Warfarin Instructions Entered On: 02/05/2021 13:23 EST Performed On: 02/05/2021 13:23 EST by Donna Boswell RN Stroke/Warfarin Instructions Stroke/TIA Discharge Ins : N/A Warfarin Discharge Ins : N/A Donna Boswell RN - 02/05/2021 13:23 EST documented in this encounter Plan of Treatment Not on file documented as of this encounter Visit Diagnoses Not on filedocumented in this encounter
--- OUTSIDE RECORDS SUMMARY | 2024-02-15 23:01 | XMS_ITS | Encounter Summary ---
Author Organization [employer] [facility] [employer] Address [address] [place] [address] Care Team Providers Care Executive Assistant To General Counsel Name Role Phone Unavailable Primary Care Provider Unavailabl e Encounter Details Date Type Department Care Team (Late st Contact Info) Description 02/05/2021 Historic Encounter [address] [id number] ProviderFredrick Historical Social History Tobacco [...] Priority Date/Time Associated Diagnosis Comments AUTOMATED DIFFERENTIAL ([facility] DATA CONV) Routine 02/05/2021 7:21 AM EST documented in this encounter Results * (ABNORMAL) AUTOMATED DIFFERENTIAL ([facility] DATA CONV) (02/05/2021 7:21 AM EST) Neut% 62.3 34.0 - 71.0 % 02/05/2021 12:41 PM EST Lymph% 21.8 19.3 - 53.1 % 02/05/2021 12:41 PM EST [place]% 14.2(H) 3.0 - 9.0 % 02/05/2021 12:41 PM EST Eos% 0.7 0.0 - 7.0 % 02/05/2021 12:41 PM EST Baso% 0.1 0.0 - 1.5 % 02/05/2021 12:41 PM EST IG% 0.90(H) 0.00 - 0.60 % 02/05/2021 12:41 PM EST Neut# 6.12 1.56 - 6.13 K/uL 02/05/2021 12:41 PM EST Lymph# 2.14 1.00 - 3.90 x10(3)/uL 02/05/2021 12:41 PM EST [place]# 1.39(H) 0.16 - 1.00 K/uL 02/05/2021 12:41 PM EST Eos# 0.07 0.00 - 0.80 x10(3)/uL 02/05/2021 12:41 PM EST Baso# 0.01 0.00 - 0.20 x10(3)/uL 02/05/2021 12:41 PM EST IG# 0.09(H) 0.00 - 0.05 x10(3)/uL 02/05/2021 12:41 PM EST Blood 02/05/2021 7:21 AM EST 02/05/2021 12:35 PM EST Narrative [facility] - 02/05/2021 12:43 PM EST Added by Discern Expert us Sle Historical Provider LAB BLOOD ORDERABLES Fi nal Result Performing Organization Address City/State/[facility] Co de Phone Number [facility] [address] [place] [address], [facility] [phone] documented in this encounter Visit Diagnoses Not on filedocumented in this encounter
--- OUTSIDE RECORDS SUMMARY | 2024-02-15 23:01 | XMS_ITS | Encounter Summary ---
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 No complaints of chest pain or SOA. No new cardiac issues. Health Status Allergies: Allergies (1) Active Reaction No Known Allergies None Documented Current medications: Home Medications (9) Active amLODIPine 2.5 mg oral tablet 2.5 mg = 1 Tab, Oral, Daily clonidine 0.3 mg oral tablet 0.3 mg = 1 Tab, Oral, BID furosemide 40 mg oral tablet 40 mg = 1 Tab, Oral, Daily glipiZIDE 10 mg oral tablet, extended release 10 mg = 1 Tab, Oral, BID With Meals isosorbide mononitrate 60 mg oral tablet, extended release 90 mg = 1.5 Tab, Oral, Daily levothyroxine 100 mcg (0.1 mg) oral tablet 100 mcg = 1 Tab, Oral, Daily lisinopril 20 mg oral tablet 20 mg = 1 Tab, Oral, BID pioglitazone 45 mg oral tablet 45 mg = 1 Tab, Oral, Daily simvastatin 20 mg oral tablet 20 mg = 1 Tab, Oral, At Bedtime , Medications (34) Active Scheduled: (16) #NaCl 0.9% *FLUSH* inj 10 mL 10 mL, IV Push, Q12H amLODIPine 10 mg tab 10 mg 1 Tab, Oral, Daily atorvastatin 40 mg tab 40 mg 1 Tab, Oral, At Bedtime carvedilol 25 mg tab 25 mg 1 Tab, Oral, BID cloNIDine 0.1 mg tab 0.1 mg 1 Tab, Oral, Q8H docusate sodium 100 mg cap 100 mg 1 Cap, Oral, BID doxycycline hyclate + NaCl 0.9% 100 mL 100 mg, IV Piggyback, [id number] enoxaparin 30 mg/0.3 ml inj 30 mg 0.3 mL, SubCutaneous, [id number] famotidine 20 mg tab 20 mg 1 Tab, Oral, Daily insulin lispro 1 unit/0.01 mL inj Scale C:, SubCutaneous, AC and at Bedtime isosorbide MONOnitrate ER 30 mg tab 90 mg 3 Tab, Oral, Daily lactobacillus acidophilus cap 1 Cap, Oral, BID levothyroxine 100 mcg tab 100 mcg 1 Tab, Oral, Daily methylPREDNISolone SUCCinate 40 mg inj 40 mg, IV Push, [id number] piperacillin-tazobactam + NaCl 0.9% 50 mL 2.25 Gram, IV Piggyback, Q8HInt senna 8.6 mg tab 8.6 mg 1 Tab, Oral, BID Continuous: (2) niCARdipine 25 mg + NaCl 0.9% T ITRATE 250 mL 250 mL, IntraVENous NORepinephrine 8 mg + NaCl 0.9% T ITRATE 250 mL 250 mL, IntraVENous PRN: (16) #NaCl 0.9% *FLUSH* inj 10 mL 10 mL, IV Push, See Comment acetaminophen 325 mg tab 650 mg 2 Tab, Oral, Q4H albuterol-ipratropium inh 3 mL 3 mL, Nebulized Inhalation, RT_Daily dextrose 50% 25 g/50 mL inj syr 25 Gram 50 mL, IV Push, Q15Min dextrose 50% 25 g/50 mL inj syr 25 Gram 50 mL, IV Push, Q15Min dextrose 50% 25 g/50 mL inj syr 25 Gram 50 mL, IV Push, Q15Min dextrose 50% 25 g/50 mL inj syr 12.5 Gram 25 mL, IV Push, Q15Min glucagon 1 mg/1 mL inj 1 mg 1 mL, IntraMuscular, Q15Min glucose 4 g tab 16 Gram 4 Tab, Chew, Q15Min glucose 40% gel 15 g 15 Gram 37.5 mL, Oral, Q15Min hydrALAZINE 20 mg/1 mL inj 10 mg 0.5 mL, IV Push, Q3H hydrOXYzine hcl 10 mg tab 10 mg 1 Tab, Oral, Q6H labetalol 100 mg/20 mL inj 10 mg 2 mL, IV Push, Q1H ondansetron 4 mg/2 mL inj 4 mg 2 mL, IV Push, Q4H phenol 1.4% throat spray 1 Prosperity, Oral, Q2H polyethylene glycol 3350 pwd 17 g pkt 17 Gram 1 Packet, Oral, Daily Problem list: Active Problems (1) Hypertension Objective Intake and Output 24 hour intake: Total 420 ml 24 hour output: Total 1,000 ml VS/Measurements Vitals Signs (last 24 hrs) Last Charted Minimum Maximum Temp 97.6 (FEB 04:) 97.6 (FEB 04:) 98.7 (FEB 03 08:00) Apical HR 78 (FEB 03 21:27) 78 (FEB 03 21:27) 85 (FEB 03 13:52) Mon HR 65 (FEB 04:54) 63 (FEB 04:38) 104 (FEB 03 23:10) Resp Rate 18 (FEB 04:54) 17 (FEB 03 10:00) H 48 (FEB 03 15:07) SBP 134 (FEB 04:) 134 (FEB 04:) H 190 (FEB 03 20:13) DBP 83 (FEB 04:) L 55 (FEB 03 23:10) H 118 (FEB 03 17:00) MAP 112 (FEB 04:38) 75 (FEB 03 23:10) 130 (FEB 03 17:00) SpO2 98 (FEB 04 05:54) 97 (FEB 03 20:13) 100 (FEB 03 07:00) General: Alert and oriented, No acute distress. Eye: Pupils are equal, round and reactive to light. HENT: Normocephalic. Neck: Supple, No carotid bruit, No jugular venous distention. Respiratory: Breath sounds are equal, Symmetrical chest wall expansion. Breath sounds: Bilateral, Diminished. Support: Oxygen ( 2 L/min ), Oxygen delivery method ( Nasal cannula ). Cardiovascular: Normal rate, Regular rhythm, S1, S2, Good pulses equal in all extremities, Normal peripheral perfusion. Gastrointestinal: Soft, Normal bowel sounds. Musculoskeletal: No deformity. Integumentary: Warm, Dry, No rash. Neurologic: Alert, Oriented. Psychiatric: Cooperative, Appropriate mood & affect. Results Review FEB 04 05:50 \ L 9.3 / 9.4 231 / L 28.5 \ Radiology Results (Last 48 hours) [id number] -- 01/29/2021 22:07 CR Chest 1 Vw Portable (02/03/2021 07:05) Result: PORTABLE CHEST; HISTORY: Pneumonia.COMPARISON: 1 day prior.FINDINGS: The nasogastric tube has been removed. The right IJ centralline is unchanged in position. The heart is stable in size. There aremild worsening opacities in the right lung. There is a stable appearanceto the left lung. There is no pleural effusion. There is nopneumothorax. IMPRESSION: Mild worsening pneumonia.Images reviewed, interpreted, and dictated by Dr. Austin Contreras.Transcribed by Tricia Peck PA-C.I have personally viewed, interpreted and dictated the examination. Ihave read and agree with the above final transcribed report. ECHO 01/30/2021 Impression: Mild left ventricular hypertrophy. Measured ejection fraction 38%. Mild aortic valve stenosis. Peak/Mean 39/22mmHg Elevated central venous pressure (>15mmHg). No masses or thrombi are seen. Measurements Summary: LVEDd: 5.08 cm LVESd: 4 cm IVSEd: 1.21 cm AO Root:2.76 cm LVPWd: 0.86 cm Impression and Plan IMPRESSION: PEA cardiopulmonary arrest during stress test at [facility] 01/29/21 ROSC unknown (brief per report) Pressor support Initial rhythm atrial fibrillation post cardiopulmonary arrest, now SR. Amio drip Heart failure with reduced EF/systolic dysfunction EF calculated at 38%, unclear etiology Uncontrolled hypertension Acute hypoxic respiratory failure secondary underlying pneumonia plus minus HF Ventilation support - extubated 02/01/21 Bilateral infiltrates TAYLOR PLAN: 02/04/2021 We will add Hydralazine 25mg Q8 and Isosorbide Dinitrate 10mg Q8 with holding parameters for better BP control and for GDT of heart failure. Continue other current cardiac medications. Eventual Ischemic evaluation with [facility] once renal function recovers. 02/03/2021 Blood pressure improving. Keep off nicardipine drip. We will increase her carvedilol to 25 mg p.o. twice daily. Continue withholding REJI inhibitor or ARB in light of her TAYLOR. Continue with other antihypertensive regimen. Plans for ischemic evaluation once kidney function improves. 02/02/2021 Patient remains hypertensive and tachycardic. Possible FVO. Agree with IV diuresis and metolazone. Antihypertensive medications increased this morning by CC. Wean Cardene off. Ischemic evaluation pending clinical course 02/01/2021 We will initiate carvedilol for better blood pressure control as part of guideline directed heart failure therapy. Increase amlodipine for better blood pressure control. Wean off nicardipine once blood pressure under control. Restricted on the use of an REJI inhibitor or ARB in the setting of TAYLOR. Ischemic evaluation once creatinine is stable, possibly on Wednesday. 01/31/2021 Continue critical care support. Wean Levophed. Will consider Ischemic evaluation pending clinical improvement. 01/30/2021 Continue supportive care. Restart/modify home meds when appropriate. Consider coronary assessment when more stable. documented in this encounter Plan of Treatment Not on file documented as of this encounter Visit Diagnoses Not on filedocumented in this encounter
--- OUTSIDE RECORDS SUMMARY | 2024-02-15 23:01 | XMS_ITS | Encounter Summary ---
Author Organization [employer] Address [address] [place] [address] Care Team Providers Care Motorcycle Mechanic Apprentice Name Role Phone Unavailable Primary Care Provider Unavailabl e Encounter Details Date Type Department Care Team (Late st Contact Info) Description 02/05/2021 Transcribed Document [facility] [place] Family Medicine [facility] [place] [address] ProviderDick MD [facility] [place] [address] Social History Tobacco Use Types [...] Conversion Note - Historical ProviderMD - 02/05/2021 10:22 AM 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 02/05/21 awake not in distress Health Status Allergies: Allergic Reactions (Selected) No Known Allergies, Allergies (1) Active Reaction No Known Allergies None Documented Current medications: (Selected) Inpatient Medications Ordered Chloraseptic Menthol 1.4% topical spray: 1 Gillett, Oral, Q2H, PRN: Sore Throat Core mg, Oral, BID Dextrose 50% injection: 12.5 Gram, IV Push, Q15Min, PRN: Other (See Comment) Dextrose 50% injection: 25 Gram, IV Push, Q15Min, PRN: Other (See Comment) Dextrose 50% injection: 25 Gram, IV Push, Q15Min, PRN: Other (See Comment) Dextrose 50% injection: 25 Gram, IV Push, Q15Min, PRN: Other (See Comment) DuoNeb 0.5 mg-2.5 mg/3 mL inhalation solution: 3 mL, Nebulized Inhalation, RT_Daily, PRN: Shortness of Breath Lipitor: 40 mg, Oral, At Bedtime Lovenox: 30 mg, SubCutaneous, [id number] MiraLax: 17 Gram, Oral, Daily, PRN: Constipation Normal Saline Flush: 10 mL, IV Push, Q12H Normal Saline Flush: 10 mL, IV Push, See Comment, PRN: IV Use Pepcid: 20 mg, Oral, Daily Senokot: 8.6 mg, Oral, BID Tylenol: 650 mg, Oral, Q4H, PRN: Fever Zofran: 4 mg, IV Push, Q4H, PRN: Nausea Zosyn + Sodium Chloride 0.9% intravenous solution 50 mL: 2.25 Gram, 16.67 mL/Hr, IV Piggyback, Q8HInt amLODIPine: 10 mg, Oral, Daily calcium gluconate: 2 Gram, IV Piggyback, 1-Time cloNIDine: 0.1 mg, Oral, Q8H docusate sodium: 100 mg, Oral, BID doxycycline + Sodium Chloride 0.9% intravenous solution 100 mL: 100 mg, 50 mL/Hr, IV Piggyback, [id number] glucagon: 1 mg, IntraMuscular, Q15Min, PRN: Other (See Comment) glucose 4 g oral tablet, chewable: 16 Gram, 4 Tab, Chew, Q15Min, PRN: Other (See Comment) glucose 40% oral gel: 15 Gram, 37.5 mL, Oral, Q15Min, PRN: Other (See Comment) hydrALAZINE: 10 mg, IV Push, Q3H, PRN: Hypertension hydrALAZINE: 50 mg, Oral, Q8H hydrOXYzine hydrochloride: 10 mg, Oral, Q6H, PRN: Anxiety insulin lispro sliding scale: Scale C:, SubCutaneous, AC and at Bedtime isosorbide dinitrate: 10 mg, Oral, Q8H labetalol: 10 mg, IV Push, Q1H, PRN: Hypertension lactobacillus acidophilus: 1 Cap, Oral, BID levothyroxine: 100 mcg, Oral, Daily predniSONE: 30 mg, Oral, Daily Documented Medications Documented Coreg 25 mg oral tablet: 1 Tab, Oral, BID, 0 Refill(s) DuoNeb 0.5 mg-2.5 mg/3 mL inhalation solution: 3 mL, Nebulized Inhalation, RT_Daily, PRN: Shortness of Breath, 0 Refill(s) Lipitor 40 mg oral tablet: 1 Tab, Oral, At Bedtime, 0 Refill(s) Lovenox: 30 mg, SubCutaneous, [id number], 0 Refill(s) Pepcid 20 mg oral tablet: 1 Tab, Oral, Daily, 0 Refill(s) amLODIPine 2.5 mg oral tablet: 1 Tab, Oral, Daily, 0 Refill(s) clonidine 0.3 mg oral tablet: 1 Tab, Oral, BID, 0 Refill(s) furosemide 40 mg oral tablet: 1 Tab, Oral, Daily, 0 Refill(s) hydrALAZINE 50 mg oral tablet: 1 Tab, Oral, Q8H, 0 Refill(s) hydrOXYzine hydrochloride 10 mg oral tablet: 1 Tab, Oral, Q6H, PRN: Anxiety, 0 Refill(s) insulin lispro 100 units/mL injectable solution: Scale C:, SubCutaneous, AC and at Bedtime, 0 Refill(s) isosorbide dinitrate 10 mg oral tablet: 1 Tab, Oral, Q8H, 0 Refill(s) lactobacillus acidophilus oral capsule: Oral, BID, 0 Refill(s) levothyroxine 100 mcg (0.1 mg) oral tablet: 1 Tab, Oral, Daily, 60 Tab, 0 Refill(s) predniSONE 10 mg oral tablet: 3 Tab, Oral, Daily, 0 Refill(s), Home Medications (15) Active amLODIPine 2.5 mg oral tablet 2.5 mg = 1 Tab, Oral, Daily clonidine 0.3 mg oral tablet 0.3 mg = 1 Tab, Oral, BID Coreg 25 mg oral tablet 25 mg = 1 Tab, Oral, BID DuoNeb 0.5 mg-2.5 mg/3 mL inhalation solution 3 mL, PRN, Nebulized Inhalation, RT_Daily furosemide 40 mg oral tablet 40 mg = 1 Tab, Oral, Daily hydrALAZINE 50 mg oral tablet 50 mg = 1 Tab, Oral, Q8H hydrOXYzine hydrochloride 10 mg oral tablet 10 mg = 1 Tab, PRN, Oral, Q6H insulin lispro 100 units/mL injectable solution Scale C:, SubCutaneous, AC and at Bedtime isosorbide dinitrate 10 mg oral tablet 10 mg = 1 Tab, Oral, Q8H lactobacillus acidophilus oral capsule , Oral, BID levothyroxine 100 mcg (0.1 mg) oral tablet 100 mcg = 1 Tab, Oral, Daily Lipitor 40 mg oral tablet 40 mg = 1 Tab, Oral, At Bedtime Lovenox 30 mg = 0.3 mL, SubCutaneous, [id number] Pepcid 20 mg oral tablet 20 mg = 1 Tab, Oral, Daily predniSONE 10 mg oral tablet 30 mg = 3 Tab, Oral, Daily , Medications (34) Active Scheduled: (18) #NaCl 0.9% *FLUSH* inj 10 mL 10 mL, IV Push, Q12H amLODIPine 10 mg tab 10 mg 1 Tab, Oral, Daily atorvastatin 40 mg tab 40 mg 1 Tab, Oral, At Bedtime calcium gluconate 2 Gram, IV Piggyback, 1-Time carvedilol 25 mg tab 25 mg 1 Tab, Oral, BID cloNIDine 0.1 mg tab 0.1 mg 1 Tab, Oral, Q8H docusate sodium 100 mg cap 100 mg 1 Cap, Oral, BID doxycycline hyclate + NaCl 0.9% 100 mL 100 mg, IV Piggyback, [id number] enoxaparin 30 mg/0.3 ml inj 30 mg 0.3 mL, SubCutaneous, [id number] famotidine 20 mg tab 20 mg 1 Tab, Oral, Daily hydrALAZINE 50 mg tab 50 mg 1 Tab, Oral, Q8H insulin lispro 1 unit/0.01 mL inj Scale C:, SubCutaneous, AC and at Bedtime isosorbide dinitrate 10 mg tab 10 mg 1 Tab, Oral, Q8H lactobacillus acidophilus cap 1 Cap, Oral, BID levothyroxine 100 mcg tab 100 mcg 1 Tab, Oral, Daily piperacillin-tazobactam + NaCl 0.9% 50 mL 2.25 Gram, IV Piggyback, Q8HInt predniSONE 10 mg tab 30 mg 3 Tab, Oral, Daily senna 8.6 mg tab 8.6 mg 1 Tab, Oral, BID Continuous: (0) PRN: (16) #NaCl 0.9% *FLUSH* inj 10 [...] Push, Q4H phenol 1.4% throat spray 1 Gillett, Oral, Q2H polyethylene glycol 3350 pwd 17 g pkt 17 Gram 1 Packet, Oral, Daily Problem list: Medical Hypertension / SNOMED CT 92188655 / Confirmed At risk for sleep apnea / IMO [id number] / Confirmed, Active Problems (2) At risk for sleep apnea Hypertension Objective VS/Measurements Vitals Signs (last 24 hrs) Last Charted Minimum Maximum Temp 98.6 (FEB 05 06:20) 98.6 (FEB 05 06:20) 99.3 (FEB 04 14:31) Apical HR 70 (FEB 05 06:32) 62 (FEB 05 02:00) 87 (FEB 04 14:54) Mon HR 70 (FEB 05 06:20) 62 (FEB 04 14:31) 71 (FEB 04 21:26) Resp Rate 18 (FEB 05 06:20) 16 (FEB 04 10:26) 18 (FEB 05 02:00) SBP H 179 (FEB 05 06:20) 135 (FEB 05 02:) H 179 (FEB 05:20) DBP 81 (FEB 05:20) L 58 (FEB 05:) 81 (FEB 04 14:31) MAP 127 (FEB 05 06:20) 78 (FEB 05 02:) 136 (FEB 04 14:31) SpO2 100 (FEB 05 08:17) L 93 (FEB 04 10:26) 100 (FEB 04:) General: Alert and oriented, No acute distress. Eye: Pupils are equal, round and reactive to light, Normal conjunctiva. HENT: Normocephalic. Neck: Supple. Respiratory: Lungs are clear to auscultation, Respirations are non-labored. Cardiovascular: Normal rate, Regular rhythm. Gastrointestinal: Soft, Non-tender. Musculoskeletal: Normal range of motion, Normal strength. Integumentary: Warm. Neurologic: Alert, Oriented. Psychiatric: Not cooperative, Not appropriate mood & affect. Results Review FEB 05 07:21 143 H 115 H 42 / H 109 3.9 22 H 2.00 \ FEB 05 07:21 \ L 9.7 / 9.8 230 / L 28.8 \ FEB 05 07:21 143 H 115 H 42 / H 109 3.9 22 H 2.00 \ FEB 05 07:21 \ L 9.7 / 9.8 230 / L 28.8 \ Impression and Plan PEA cardiopulmonary arrest -Occurred at [facility] during a Stress Test with Dr. Zabala -Patient required amio for reported A.Fib after ROSC, now off -Transferred intubated and sedated -Chest CT: Bilateral infiltrates -ECHO 01/30: EF 38%, mild LVH, abnormal systolic function -Cardiology consulted: will continue to follow with more further coronary assessment once more stable. Acute hypoxic respiratory failure requiring intubation with Bilateral Pneumonia Septic Shock -Intubated, arousable to name 01/30 AM. Currently on Precedex, fentanyl, and Norepi -Chest CT 01/30: Bilateral infiltrates with bilateral pleural effusions -COVID negative -Pulm/CC managing vent. -Zosyn, Zyvox, and Doxy -Sputum cultures and Resp PCR sent extubated SOA with exertion -Spoke to daughter 01/30. She states patient had stress test because of SOA with exertion. -Worse in the last 2 weeks prior to stress test. Hypertension -At outside facility patient was in HTN Emergency , was on NTG drip, now off -Patient actually became hypotensive. Will restart at home medicines as tolerated -Patient was on Norvasc, clonidine, Imdur, and lisinopril Unresponsive upon admission -Possibly anoxic brain injury -CT brain at outlying facility -Neurology consulted since patient became responsive there is low concern for anoxic brain injury -Can reconsult Neuro for any issues. Diabetes mellitus 2 -Hold at home oral -Currently on sliding scale. -A1c in the a.m. TAYLOR vs. CKD -Spoke to daughter and she is unaware of her mother having CKD -Will continue to monitor Hypothyroidism -Continue at home Synthroid DVT prophylaxis: Lovenox GI Prophylaxis:Pepcid COVID negative Full Code plan oral steroidsn labs in am extubated awake BP control d/w RN disposition patient weak needs PT/OT SNF today CM for DC plan time spent 40 min documented in this encounter Plan of Treatment Not on file documented as of this encounter Visit Diagnoses Not on filedocumented in this encounter
--- OUTSIDE RECORDS SUMMARY | 2024-02-15 23:01 | XMS_ITS | Encounter Summary ---
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 Name Role Phone Unavailable Primary Care Provider Unavailabl e Encounter Details Date Type Department Care Team (Late st Contact Info) Description 02/04/2021 Historic Encounter [address] [id number] ProviderBronwyn Historical Social History Tobacco Use Types Packs/Day [...] Priority Date/Time Associated Diagnosis Comments GLUCOSE-POC Routine 02/04/2021 4:37 PM EST documented in this encounter Results * (ABNORMAL) Glucose, Point of Care (02/04/2021 4:37 PM EST) Glucose POC2 275(H) 70 - 110 mg/dL 02/04/2021 9:37 PM EST [facility] Printer Maintainer [id number] 02/04/2021 9:37 PM EST [facility] Device SN [id number] 02/04/2021 9:37 PM EST [facility] Device Comment1 Notified Nurse RBV 02/04/2021 9:37 PM EST [facility] Blood 02/04/2021 4:37 PM EST 02/04/2021 9:39 PM EST [facility] Historical Provider POINT OF CARE TEST JEFFREY MERIDA Final Result [facility] [address] [phone] documented in this encounter Visit Diagnoses Not on filedocumented in this encounter
--- OUTSIDE RECORDS SUMMARY | 2024-02-15 23:01 | XMS_ITS | Encounter Summary ---
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 [place] [address] [address] [...] Cardinal Marinelli Discharge Summary: MED Unit at [facility]. RN report # [phone]. Transportation: [facility] wheelchair van at 1430 Follow-Up Appointments [...] Day as needed for Shortness of Breath amLODIPine (amLODIPine 10 mg oral tablet) 1 Tablet(s) Oral Every Day atorvastatin (Lipitor 40 mg oral tablet) 1 Tablet(s) Oral At Bedtime carvedilol (Coreg 25 mg oral tablet) 1 Tablet(s) Oral Two Times A Day doxycycline (doxycycline 100 mg injection) 100 Milligram(s) IntraVENous Two Times A Day through then reevaluate per ID enoxaparin (Lovenox) 30 Milligram(s) SubCutaneous Interval Every 24 Hours famotidine (Pepcid 20 mg oral tablet) 1 Tablet(s) Oral Every Day hydrALAZINE (hydrALAZINE 50 mg oral tablet) 1 Tablet(s) Oral Every 8 Hours hydrOXYzine (hydrOXYzine hydrochloride 10 mg oral tablet) 1 Tablet(s) Oral Every 6 Hours as needed for Anxiety insulin lispro (insulin lispro 100 units/ mL injectable solution) Scale C: SubCutaneous Before Meals and at Bedtime isosorbide dinitrate (isosorbide dinitrate 10 mg oral tablet) 1 Tablet(s) Oral Every 8 Hours lactobacillus acidophilus (lactobacillus acidophilus oral capsule) 1 Capsule(s) Oral Two Times A Day piperacillin-tazobactam (Zosyn 2 g-0.25 g intravenous injection) 2.25 Gram(s) IntraVENous Every 8 Hours through predniSONE (predniSONE 10 mg oral tablet) 3 Tablet(s) Oral Every Day Duration: 5 Day(s) cloNIDine (clonidine 0.3 mg oral tablet) 1 Tablet(s) Oral Two Times A Day furosemide (furosemide 40 mg oral tablet) 1 Tablet(s) Oral Every Day as needed for Other (See Comment) levothyroxine (levothyroxine 100 mcg (0.1 mg) oral tablet) 1 Tablet(s) Oral Every Day Take your medications faithfully. Do NOT skip [...] provider. This is important. Medicines ??? Take euwv-pno-awwcffm and prescription medicines only as told by [...] provider. Document Revised: 11/02/2018 Document Reviewed: 11/02/2018 [employer] Patient Education ?? 2020 [employer]. Acute Respiratory Distress Syndrome, Adult Acute respiratory [...] these instructions at home: Medicines ??? Take kabh-qnf-ctzckso and prescription medicines only as told by [...] important. Where to find more information ??? [place] [employer]: https://www.lung.org/ ??? ARDS Foundation: https://ardsglobal.org/ [...] provider. Document Revised: 04/08/2020 Document Reviewed: 03/21/2020 [employer] Patient Education ?? 2020 [employer] Weakness Weakness is a lack of [...] gain muscle strength. General instructions ??? Take rfjc-fem-qhtwowg and prescription medicines only as told by [...] provider. Document Revised: 09/28/2018 Document Reviewed: 09/28/2018 [employer] Patient Education ?? 2020 [employer] Acute Respiratory Failure, Adult Acute respiratory [...] these instructions at home: Medicines ??? Take mjbd-kna-eovrycr and prescription medicines only as told by [...] breathe, such as a ventilator. ??? Take hklu-cqz-ixextje and prescription medicines only as told by your health care provider. ??? Contact a health care provider if your symptoms do not improve or if they get worse. This information is not intended to replace advice given to you by your health care provider. Make sure you discuss any questions you have with your health care provider. Document Revised: 02/09/2020 Document Reviewed: 02/09/2020 [employer] Patient Education ?? 2020 [employer]. Emergency Awareness and Preventative Care STROKE is [...] Assistance with quitting is available by contacting 3-556-NBDP-NOW. This is a free resource providing counseling, [...] range between ( 0.0 and 7.0 ) [place] #: 1.39 K/uL -- Normal range between ( 0.16 and 1.00 ) Eos #: 0.07 x10(3)/uL -- Normal range between ( 0.00 and 0.80 ) [place] %: 14.2 % -- Normal range between [...] 11 ) Hypochromia: 1+ RBC Morphology: Abnormal [place] Percent Man: 6 % -- Normal range [...] -- Normal range between ( 0 and [address] ) RBC Count BF: 1150 /uL -- Normal range between ( 0 and [address] ) Body Fluid Review for Pathologist: Body [...] was given the opportunity to ask questions. Patient/Condenser Tester Name: Patient/Condenser Tester Signature: Relationship to Patient: Clinician/Hospital Condenser Tester Signature: Date: documented in this encounter Plan of Treatment Not on file documented as of this encounter Visit Diagnoses Not on filedocumented in this encounter
--- OUTSIDE RECORDS SUMMARY | 2024-02-15 23:01 | XMS_ITS | Encounter Summary ---
Author Organization [employer] Address [address] [place] [address] Care Team Providers Care Director Hematology Name Role Phone Unavailable Primary Care Provider Unavailabl e Encounter Details Date Type Department Care Team (Late st Contact Info) Description 02/05/2021 Transcribed Document [facility] [place] [facility] [place] [address] ProviderDick MD [facility] [place] [address] Social History Tobacco Use Types [...] Conversion Note - Historical ProviderMD - 02/05/2021 4:44 PM NEUROPSYCHIATRIC AIDE Discharge Summary, PT Entered On: 02/05/2021 16:46 EST Performed On: 02/05/2021 16:44 EST by ROBERTA HILL, PT Discharge Summary Discharge Summary Provider Notified : Physical Therapy Reason for Discharge : Discharged from hospital Discharged to, Therapy : Unit, [facility] Discharge Summary Comment, PT : pt last had PTx 02/04 and noted to amb 240 ft on 2 L O2 at 99% O2 sats supervision for all mobility 3/3 STGs met 0/2 LTGs met ROBERTA HILL, PT - 02/05/2021 16:44 EST Short Term Goals Mobility/Bed Mobility STG PT Grid Goal #1 Goal #2 Activity : Supine to sit Sit to stand Assist : Supervision or set-up Assist, minimal Equipment : Rail, bed Walker, front wheel Date to Meet : 02/09/2021 EST 02/09/2021 EST Goal Status : Goal met Goal met Date Met : 02/04/2021 EST 02/04/2021 EST ROBERTA HILL, PT - 02/05/2021 16:44 EST ROBERTA HILL, PT - 02/05/2021 16:44 EST Ambulation STG Grid Goal #1 Device : Walker, front wheel Distance : 50'[ Assist : Assist, minimal Date to Meet : 02/09/2021 EST Goal Status : Goal met Date Met : 02/04/2021 EST ROBERTA HILL, PT - 02/05/2021 16:44 EST Residential Goals Mobility/Bed Mobility LTG PT Grid Goal #1 Activity : Sit to stand Assist : Independent, modified Equipment : Walker, front wheel Date to Meet : 02/16/2021 EST Goal Status : Not met ROBERTA HILL, PT - 02/05/2021 16:44 EST Ambulation LTG Grid Goal #1 Device : Walker, front wheel Distance : 375' Assist : Supervision or set-up Date to Meet : 02/16/2021 EST Goal Status : Not met ROBERTA HILL, PT - 02/05/2021 16:44 EST documented in this encounter Plan of Treatment Not on file documented as of this encounter Visit Diagnoses Not on filedocumented in this encounter
--- OUTSIDE RECORDS SUMMARY | 2024-02-15 23:01 | XMS_ITS | Encounter Summary ---
Author Organization [employer] Address [address] [place] [address] Care Team Providers Care Caddy/Caddie Supervisor Name Role Phone Unavailable Primary Care Provider Unavailabl e Encounter Details Date Type Department Care Team (Late st Contact Info) Description 02/05/2021 Historic Encounter [address] [address] ProviderFredrick Historical Social History Tobacco [...] Procedure Name Priority Date/Time Associated Diagnosis Comments CBC W/ AUTO DIFF ([facility] DATA CONV) Routine 02/05/2021 7:21 AM EST documented in this encounter Results * (ABNORMAL) CBC W/ AUTO DIFF ([facility] BKR DATA CONV) (02/05/2021 7:21 AM EST) WBC 9.8 4.5 - 10.5 K/uL 02/05/2021 12:41 PM EST RBC 3.12(L) 3.93 - 5.22 Million/uL 02/05/2021 12:41 PM EST Hgb 9.7(L) 11.2 - 15.7 g/dL 02/05/2021 12:41 PM EST Hct 28.8(L) 34.1 - 44.9 % 02/05/2021 12:41 PM EST MCV 92.3 79.0 - 94.8 fL 02/05/2021 12:41 PM EST MCH 31.1 25.6 - 32.2 pg 02/05/2021 12:41 PM EST MCHC 33.7 32.2 - 36.5 Gram/dL 02/05/2021 12:41 PM EST RDW 16.2(H) 11.7 - 14.9 % 02/05/2021 12:41 PM EST Platelet Count 230 163 - 369 K/uL 02/05/2021 12:41 PM EST MPV 10.9 9.4 - 12.4 fL 02/05/2021 12:41 PM EST Slide Review No 02/05/2021 12:43 PM EST nRBC 0.070(H) 0.000 - 0.012 02/05/2021 12:41 PM EST Blood 02/05/2021 7:21 AM EST 02/05/2021 12:35 PM EST Narrative [facility] - 02/05/2021 12:43 PM EST line draw [facility] Historical Provider LAB BLOOD ORDERABLES Fi nal Result [facility] [address] [phone] documented in this encounter Visit Diagnoses Not on filedocumented in this encounter
--- OUTSIDE RECORDS SUMMARY | 2024-02-15 23:01 | XMS_ITS | Encounter Summary ---
Author Organization [employer] Address [address] [place] [address] Care Team Providers Care Photoengraving Proofer Name Role Phone Unavailable Primary Care Provider Unavailabl e Encounter Details Date Type Department Care Team (Late st Contact Info) Description 02/04/2021 Historic Encounter [facility] [address] [place] [address] Provider, [facility] Historical Social History Tobacco Use Types [...] Procedure Name Priority Date/Time Associated Diagnosis Comments LACTIC ACID LEVEL ([facility] DATA CONV) Routine 02/04/2021 8:00 AM EST documented in this encounter Results * LACTIC ACID LEVEL ([facility] DATA CONV) (02/04/2021 8:00 AM EST) Lactic Acid Level 0.9 0.4 - 2.0 mmol/L 02/04/2021 1:32 PM EST Blood 02/04/2021 8:00 AM EST 02/04/2021 1:10 PM EST [facility] Historical Provider LAB BLOOD ORDERABLES Fi nal Result [facility] [address] [place], [place] [address] [phone] documented in this encounter Visit Diagnoses Not on filedocumented in this encounter
--- OUTSIDE RECORDS SUMMARY | 2024-02-15 23:01 | XMS_ITS | Encounter Summary ---
Author Organization [employer] Address [address] [place] [address] Care Team Providers Care Senior C Developer Name Role Phone Unavailable Primary Care Provider Unavailabl e Encounter Details Date Type Department Care Team (Late st Contact Info) Description 02/04/2021 Historic Encounter [address] [address] ProviderFredrick Historical Social History Tobacco [...] Procedure Name Priority Date/Time Associated Diagnosis Comments CMP COMPREHENSIVE METABOLIC PANEL ([facility] DATA CONV) Routine 02/04/2021 5:50 AM EST documented in this encounter Results * (ABNORMAL) CMP COMPREHENSIVE METABOLIC PANEL ([facility] BK DATA CONV) (02/04/2021 5:50 AM EST) Sodium Level 146 136 - 146 mmol/L 02/04/2021 11:58 AM EST Potassium Level 4.7 3.5 - 5.1 mmol/L 02/04/2021 11:58 AM EST Chloride Level 114(H) 102 - 112 mmol/L 02/04/2021 11:58 AM EST Carbon Dioxide Level 21 21 - 32 mmol/L 02/04/2021 11:58 AM EST Anion Gap 16 9 - 20 02/04/2021 11:58 AM EST Calcium Level 7.8(L) 8.4 - 10.1 mg/dL 02/04/2021 11:58 AM EST Glucose Level 92 74 - 106 mg/dL 02/04/2021 11:58 AM EST Comment: [employer] has become aware of sulfasalazine and sulfapyridine drug interference in the assays ALT, AST, T4, CKMB, glucose, and ammonia. The probability of misinterpretation of results for the assays is remote and would be limited to scenarios where a patient has taken the drug and had a blood sample drawn before clearance of the drug to a level that does not interfere with laboratory testing. Venipuncture should occur prior to administration of the drug. Blood Urea Nitrogen 45(H) 7 - 22 mg/dL 02/04/2021 11:58 AM EST Creatinine Level 2.10(H) 0.55 - 1.02 mg/dL 02/04/2021 11:58 AM EST Bun/Creatinine 21.4(H) 8.0 - 20.0 02/04/2021 11:58 AM EST Albumin Level 2.2(L) 3.4 - 5.0 Gram/dL 02/04/2021 11:58 AM EST Protein, Total 5.4(L) 6.4 - 8.2 Gram/dL 02/04/2021 11:58 AM EST A/G Ratio 0.7(L) 1.1 - 2.5 02/04/2021 11:58 AM EST Alk Phos 38 27 - 136 Units/Lit er 02/04/2021 11:58 AM EST ALT 17 13 - 56 Units/Lit er 02/04/2021 11:58 AM EST Comment: [employer] has become aware of sulfasalazine and sulfapyridine drug interference in the assays ALT, AST, T4, CKMB, glucose, and ammonia. The probability of misinterpretation of results for the assays is remote and would be limited to scenarios where a patient has taken the drug and had a blood sample drawn before clearance of the drug to a level that does not interfere with laboratory testing. Venipuncture should occur prior to administration of the drug. AST 22 5 - 37 Units/Lit er 02/04/2021 11:58 AM EST Comment: [employer] has become aware of sulfasalazine and sulfapyridine drug interference in the assays ALT, AST, T4, CKMB, glucose, and ammonia. The probability of misinterpretation of results for the assays is remote and would be limited to scenarios where a patient has taken the drug and had a blood sample drawn before clearance of the drug to a level that does not interfere with laboratory testing. Venipuncture should occur prior to administration of the drug. Bilirubin, Total 0.5 0.2 - 1.2 mg/dL 02/04/2021 11:58 AM EST Comment: Total bilirubin results may be falsely elevated in patients undergoing treatment with eltrombopag (Promacta). Results should be correlated to clinical symptomology and additional laboratory testing including other markers for liver function, e.g., alanine aminotransferase, aspartate aminotransferase, alkaline phosphatase, and/or lactate dehydrogenase. Globulin 3.2 1.5 - 4.5 Gram/dL 02/04/2021 11:58 AM EST eGFR 28(L) >=60 mL/min/1. 73m2 02/04/2021 11:59 AM EST Comment: GFR <60 suggests chronic kidney disease, if found over 3 month period. GFR <15 indicates renal failure. eGFR NonAfrican 23(L) >=60 mL/min/1. 73m2 02/04/2021 11:59 AM EST Comment: GFR <60 suggests chronic kidney disease, if found over 3 month period. GFR <15 indicates renal failure. Blood 02/04/2021 5:50 AM EST 02/04/2021 11:02 AM EST [facility] Historical Provider LAB BLOOD ORDERABLES Fi nal Result [facility] [address] [phone] documented in this encounter Visit Diagnoses Not on filedocumented in this encounter
--- OUTSIDE RECORDS SUMMARY | 2024-02-15 23:01 | XMS_ITS | Encounter Summary ---
Author Organization [employer] Address [address] [place] [address] Care Team Providers Care Investigator Internal Affairs Name Role Phone Unavailable Primary Care Provider Unavailabl e Encounter Details Date Type Department Care Team (Late st Contact Info) Description 02/04/2021 Transcribed Document [facility] [place] [address] ProviderDick MD [address] [place] [address] Social History Tobacco Use Types [...] Conversion Note - Historical ProviderMD - 02/04/2021 2:00 AM DIRECTOR SEARCH MARKETING STRATEGIES Water Resources Technical Officer Details Entered On: 02/04/2021 3:19 EST Performed On: 02/04/2021 2:00 EST by JOELLEN BURK RN Order Details Transport Mode Order Detail : Stretcher/Gurney Isolation Precautions Order Detail : Standard Precautions Order Detail : N/A Oxygen Order Detail : 1 Nurse Collect Order Detail : 1 Lift/Transfer : Moderate assist Central Line Order Detail : Yes Room Service : Not Appropriate Arterial Line : No Patient Needs Meds Crushed/Liquid : No JOELLEN BURK RN - 02/04/2021 3:19 EST Electronically signed by Parv[facility] Conversion Convenience Recycle Center Tech Cerner at 06/22/2022 7:34 PM CDT documented in this encounter Plan of Treatment Not on file documented as of this encounter Visit Diagnoses Not on filedocumented in this encounter
--- OUTSIDE RECORDS SUMMARY | 2024-02-15 23:01 | XMS_ITS | Encounter Summary ---
Author Organization [employer] Address [address] [place] [address] Care Team Providers Care Wafer Fabricator Name Role Phone Unavailable Primary Care Provider Unavailabl e Encounter Details Date Type Department Care Team (Late st Contact Info) Description 02/04/2021 Transcribed Document [facility] [place] [facility] [place] [address] ProviderDick MD [facility] [place] [address] Social History Tobacco Use Types [...] Conversion Note - Historical ProviderMD - 02/04/2021 4:12 PM MID TEACHER On Going Discharge Planning Entered On: 02/04/2021 16:13 EST Performed On: 02/04/2021 16:12 EST by Wong Teague, TECHNICAL SERVICES ANALYST NON-EXEMPT Care Management Progress Note Discharge Arrangements : Patient Post-Acute Information Patient Name: CISCO CAZARES Gender: Female : 49 Age: 75 Years No Post-Acute Placement(s) Listed No Post-Acute Service(s) Listed No [place] Referral(s) Listed Discharge Options Discussed with Patient : Acute rehabilitation, Home Health, long term Barriers to Discharge Identified : Clinical Condition of Patient Barriers to Discharge Unresolved : Clinical Condition of Patient Patient Offered Choice/Affiliations Explained : Yes Designation of Choice Signed : Yes List/Info Provided Pt/Fam/Support Person : Inpatient rehabilitation facility, [facility] facilities Were Referrals Sent to Post Acute Providers : Yes Is the Patient Meeting Medical Necessity : Yes Physician Agreeable to Move Forward with D/C Plan? : Yes Discharge Plan Comment : SNF vs HH Did you Attend Multidisciplinary Rounds? : Yes Wong Teague TECHNICAL SERVICES ANALYST NON-EXEMPT - 02/04/2021 16:12 EST Narrative Progress Note Narrative Progress Note : Day 6 of 5 ELOS Moderate readmission risk Pt originally wants HH, but now considering [facility] Possible [facility] tomorrow if she accepts [facility] has presented to their MD for review [facility] wheelchair van once approved Pt & daughter were updated CM will continue to follow Wong Teague SOCIAL WORKER NON-EXEMPT - 02/04/2021 16:18 EST Historical Progress Note : HD# 5. elos: 5. RAR: moderate 55 pea arrest during stress test. acute hypoxic resp failure. irene. htn. diabetes. covid 19: negative 01-30 extubated 01-31. bipap 40%/02 2L nc. doxycycline/zosyn iv. solu medrol iv. PT/OT: to chair. ST: taking po. pt resides in [facility]. she lives alone. adl independent. no dme, hh or rehab stays dcp: spoke with Ms. Cazares. discussed rehab: she is agreeable to referrals to [facility]. he ultimate goal would be home with home health. no poa/hcs. single. 1 child. Eunice, daughter, legal next of kin: [phone] spoke with lisseth Moy RN. JANET MADRID, RN-Commercial Lines Manager - 02/03/21 09:27:16 Wong Teague TECHNICAL SERVICES ANALYST NON-EXEMPT - 02/04/2021 16:12 EST documented in this encounter Plan of Treatment Not on file documented as of this encounter Visit Diagnoses Not on filedocumented in this encounter
--- OUTSIDE RECORDS SUMMARY | 2024-02-15 23:01 | XMS_ITS | Encounter Summary ---
Author Organization [employer] Address [address] [place] [address] Care Team Providers Care Receiving And Processing Supervisor Name Role Phone Unavailable Primary Care Provider Unavailabl e Encounter Details Date Type Department Care Team (Late st Contact Info) Description 02/04/[address] [facility] Family Medicine [place] [address] ProviderDick MD [address] [place] [address] Social History Tobacco Use Types Packs/Day [...] Conversion Note - Historical ProviderMD - 02/04/2021 1:06 PM EPILEPSY PHYSICIAN Patient: CISCO CAZARES Age: 75 years Sex: Female : 1945 Associated Diagnoses: None Author: WINSTON NUÑEZ MD-INF Basic Information CC: Sepsis, probable aspiration pneumonia History of Present Illness 75 yo female with h/o T2DM, HLD, hypothyroidism, and HTN who presented to [facility] on 01/29/21 by transfer from [facility] for cardiology evaluation. The patient was getting cardiac stress test at radiology on 01/29/21. She began to complain of shortness of breath and went into PEA arrest. CPR and ACLS were done with pulse regained and afib. The amount of time for the code was not in document accompanying the patient. She was intubated to protect airways and placed on mechanical ventilation. She was placed on nitroglycerin and amiodarone. She was found to have creatinine of 1.9. She was transferred to [facility]. On arrival on 01/29, her Tlow was 91.9. She was on sedated on mechanical ventilation on 100% FiO2. She was weaned from the vent and extubated on 01/31. She is currently on 4L O2 nasal cannula. Her creatinine was 2.3 on arrival and worsened to 2.6 on 01/31 and is now 2.3 on 02/01. Her lactic acid was 5.0 on arrival and is now in normal range of 1.7. Her PCT was 8.38 on arrival. Her WBC was 9700 on arrival and jumped to 21,000 with 84% neutrophils on 01/31 with improvement to 15,000 on 02/01. A CT scan of chest on 01/30 showed extensive diffuse bilateral consolidative opacities with small to moderate bilateral pleural effusion c/w multifocal pneumonia. A COVID-19 PCR was negative. She underwent a bronchoscopy on 01/30 and found to have thickened mucopurulent secretion in bilateral lower lobes and trachea and was diagnosed with severe bronchitis and pneumonia. Cultures from bronch on 01/30 are pending but negative for significant growth to date. An EKG on 01/31 showed sinus rhythm with some marked arrhythmia and 1st degree AV block with QTc 487. A TTE on 01/30 showed LVEF 38% with mild aortic stenosis. She was started on SoluMedrol, IV doxycycline, IV Zyvox, and Zosyn since 01/30. ID was asked by Dr. Praful Davdi on 02/01 to evaluate and manage her antibiotic therapy. The patient is unable to give history secondary to mental status. 02/02/2021 history reviewed. Still with some shortness of breath in the ICU. No high fever, is producing some sputum. Tolerating piperacillin tazobactam and doxycycline along with steroids until 02/06 and reassess. 02/03/2021 history reviewed. Breathing improved. No fever. On piperacillin tazobactam and doxycycline until 02/06 and reassess. Continues on steroids. 02/04/2021 history reviewed. Moved out of the ICU. No fever. On piperacillin tazobactam and doxycycline until 02/06. Review of Systems Constitutional: Weakness, No fever, No chills, No sweats. Eye Ear/Nose/Mouth/Throat Respiratory: Shortness of breath, Cough, No sputum production, No hemoptysis. Cardiovascular: Tachycardia, No chest pain, No palpitations, No bradycardia. Gastrointestinal: No nausea, No vomiting, No diarrhea, No abdominal pain. Genitourinary: No dysuria, No hematuria, No change in urine stream. Hematology/Lymphatics Endocrine Immunologic Musculoskeletal: No back pain, No neck pain, No joint pain, No muscle pain, No claudication, No decreased range of motion. Integumentary: No rash, No abrasions. Neurologic: Alert and oriented X4, No confusion, No headache. Psychiatric: No anxiety, No depression. All other systems. Health Status Current medications: Medications by Classification Antimicrobials piperacillin-tazobactam + Sodium Chloride 0.9% intravenous s - 2.25 Gram, IV Piggyback, Inj, Q8HInt, infuse over 3 Hour(s), order duration: 7 Day(s), Routine doxycycline + Sodium Chloride 0.9% intravenous solution 100 - 100 mg, IV Piggyback, Inj, [id number], infuse over 2 Hour(s), order duration: 7 Day(s), Routine Immunology methylPREDNISolone (methylPREDNISolone sodium succinate) - 40 mg, IV Push, Inj, Daily, Routine Anticoagulant enoxaparin (Lovenox) - 30 mg, SubCutaneous, Inj, [id number] Cardiovascular isosorbide mononitrate - 90 mg, Oral, ER Tab, Daily, Routine carvedilol (Coreg) - 25 mg, Oral, Tab, BID, Routine labetalol - 10 mg, IV Push, Inj, Q1H, PRN for Hypertension, Routine amLODIPine - 10 mg, Oral, Tab, Daily, Routine cloNIDine - 0.1 mg, Oral, Tab, Q8H, Routine atorvastatin (Lipitor) - 40 mg, Oral, Tab, At Bedtime, Routine Respiratory albuterol-ipratropium (DuoNeb 0.5 mg-2.5 mg/3 mL inhalation - 3 mL, Nebulized Inhalation, Inh, RT_Daily, PRN for Shortness of Breath, Routine GI ondansetron (Zofran) - 4 mg, IV Push, Inj, Q4H, PRN for Nausea, Routine famotidine (Pepcid) - 20 mg, Oral, Tab, Daily docusate (docusate sodium) - 100 mg, Oral, Cap, BID polyethylene glycol 3350 (MiraLax) - 17 Gram, Oral, Powder, Daily, PRN for Constipation, Routine senna (Senokot) - 8.6 mg, Oral, Tab, BID lactobacillus acidophilus - 1 Cap, Oral, Cap, BID, Routine Endocrine insulin lispro (insulin lispro sliding scale) - Scale C:, SubCutaneous, Inj, AC and at Bedtime, Routine glucose (Dextrose 50% injection) - 25 Gram, IV Push, Inj, Q15Min, PRN for Other (See Comment), Routine glucose (Dextrose 50% injection) - 25 Gram, IV Push, Inj, Q15Min, PRN for Other (See Comment), Routine glucose (Dextrose 50% injection) - 25 Gram, IV Push, Inj, Q15Min, PRN for Other (See Comment), Routine glucose (Dextrose 50% injection) - 12.5 Gram, IV Push, Inj, Q15Min, PRN for Other (See Comment), Routine glucose (glucose 4 g oral tablet, chewable) - 16 Gram, 4 Tab, Chew, Tab, Q15Min, PRN for Other (See Comment), Routine glucose (glucose 40% oral gel) - 15 Gram 37.5 mL, Oral, Gel, Q15Min, PRN for Other (See Comment), Routine levothyroxine - 100 mcg, Oral, Tab, Daily, Routine Pain Meds acetaminophen (Tylenol) - 650 mg, Oral, Tab, Q4H, PRN for Fever, Routine Sedatives hydrOXYzine (hydrOXYzine hydrochloride) - 10 mg, Oral, Tab, Q6H, PRN for Anxiety, Routine Topical phenol topical (Chloraseptic Menthol 1.4% topical spray) - 1 Era, Oral, Era, Q2H, PRN for Sore Throat, Routine Vitamins sodium chloride (Normal Saline Flush) - 10 mL, IV Push, Inj, Q12H, Routine sodium chloride (Normal Saline Flush) - 10 mL, IV Push, Inj, See Comment, PRN for IV Use, Routine Undefined Medications glucagon - 1 mg, IntraMuscular, Inj, Q15Min, PRN for Other (See Comment), Routine hydrALAZINE - 10 mg, IV Push, Inj, Q3H, PRN for Hypertension, Routine Physical Examination VS/Measurements Vital Measurements 02/04/2021 9:00 EST Oxygen Flow Rate 2 Liter/Min , Vitals Signs (last 24 hrs) Last Charted Minimum Maximum Temp 98.4 (FEB 04 10:07) 97.6 (FEB 04 05:38) 98.7 (FEB 03 16:00) Apical HR 63 (FEB 04 06:45) 63 (FEB 04 06:45) 85 (FEB 03 13:52) Mon HR 67 (FEB 04 10:) 63 (FEB 04 05:38) 104 (FEB 03 23:10) Resp Rate 16 (FEB 04:) 16 (FEB 04:) H 48 (FEB 03 15:07) SBP H 151 (FEB 04 10:) 134 (FEB 04 05:38) H 190 (FEB 03 20:13) DBP H 118 (FEB 04 10:) L 55 (FEB 03 23:10) H 118 (FEB 03 17:00) MAP 131 (FEB 04:) 75 (FEB 03 23:10) 131 (FEB 04 10:) SpO2 L 93 (FEB 04:) L 93 (FEB 04:) 100 (FEB 03 14:00) General: Moderate distress, Alert, not oriented, appears stated age resting in bed in the ICU. Eye: Extraocular movements are intact, Normal conjunctiva. HENT: Normocephalic, Normal hearing, Oral mucosa is moist, No pharyngeal erythema. Neck: Supple, Non-tender, No jugular venous distention, No lymphadenopathy. Respiratory: Respirations are non-labored, Breath sounds are equal, No chest wall tenderness, diminished at lung bases bilaterally with a few crackles. Cardiovascular: No gallop, Normal peripheral perfusion, No edema, tachycardia. Gastrointestinal: Soft, Non-tender, Non-distended, Normal bowel sounds, No organomegaly. Lymphatics: No lymphadenopathy neck, axilla, groin. Musculoskeletal: Normal range of motion, Normal strength, No tenderness, No deformity. Integumentary: Warm, Dry, [place], No rash. Neurologic: Alert, No focal deficits, Not oriented. Cognition and Speech: Speech clear and coherent. Psychiatric: Cooperative, Appropriate mood & affect. Review / Management Results review: Labs (Last four charted values) WBC 9.4 (NOV 30) 7.7 (NOV 29) H 11.6 (NOV ) H 15.0 (NOV ) HB L 9.3 (NOV 30) L 8.4 (NOV 29) L 8.7 (NOV ) L 8.9 (NOV ) HCT L 28.5 (NOV 30) L 26.1 (NOV 29) L 26.3 (NOV 28) L 26.3 (NOV ) Plt 231 (NOV 30) 214 (NOV 29) 233 (NOV ) 216 (NOV ) Na 146 (NOV 30) 144 (NOV ) 146 (NOV ) 141 (NOV ) K 4.7 (NOV ) 4.1 (NOV ) 3.8 (NOV ) 3.7 (NOV ) Cl H 114 (NOV ) H 118 (NOV ) H 118 (NOV ) 112 (NOV ) CO2 21 (NOV ) 21 (NOV ) 21 (NOV ) 23 (NOV ) BUN H 45 (NOV ) H 43 (NOV ) H 35 (NOV ) H 32 (NOV ) Cr H 2.10 (NOV ) H 2.30 (NOV ) H 2.20 (NOV ) H 2.30 (NOV ) Glu R 92 (NOV ) H 143 (NOV ) H 203 (NOV ) H 177 (NOV ) Ca L 7.8 (NOV ) L 7.6 (NOV ) L 7.6 (NOV ) L 7.9 (NOV ) Lactic 0.9 (NOV ) 0.7 (NOV ) 1.2 (NOV ) 1.7 (NOV 25) PT H 12.5 (NOV 24) INR 1.2 (NOV 24) PTT 31.8 (NOV 24) AST 22 (NOV 30) 23 (NOV 29) 28 (NOV 28) 28 (NOV 27) ALT 17 (NOV 30) 14 (NOV 29) 17 (NOV 28) 13 (NOV 27) ALK P 38 (NOV 30) 43 (NOV 29) 53 (NOV 28) 50 (NOV 27) T Bili 0.5 (NOV 30) 0.5 (NOV 29) 0.5 (NOV ) 0.5 (NOV ) PTN L 5.4 (NOV 30) L 5.2 (NOV 29) L 5.8 (NOV ) L 5.5 (FEB 01) ALB L 2.2 (FEB 04) L 2.4 (FEB 03) L 2.6 (FEB 02) L 2.4 (FEB 01) Troponin C 0.771 (JAN 29) , ACC: [id number] ORDER: Culture Blood DATE: 01/29/2021 22:39 SOURCE: Blood SITE: Reports Final 02/04/2021 06:01 No growth at 5 days. Pre 02/03/2021 06:01 No growth at 4 days. Pre 02/02/2021 06:02 No growth at 3 days. Pre 02/01/2021 06:02 No growth at 2 days. Pre 01/31/2021 06:01 No growth at 1 day. Pre 01/30/2021 16:01 Culture less than 24 Hrs old == ACC: [id number] ORDER: Culture Blood DATE: 01/29/2021 22:39 SOURCE: Blood SITE: Reports Final 02/04/2021 06:01 No growth at 5 days. Pre 02/03/2021 06:01 No growth at 4 days. Pre 02/02/2021 06:02 No growth at 3 days. Pre 02/01/2021 06:02 No growth at 2 days. Pre 01/31/2021 06:01 No growth at 1 day. Pre 01/30/2021 16:01 Culture less than 24 Hrs old == ACC: [id number] ORDER: Culture MRSA Surveillance DATE: 02/01/2021 09:11 SOURCE: Nasal SITE: Reports Final 02/02/2021 12:55 No MRSA isolated For Infection Control surveillance only. == ACC: [id number] ORDER: Culture Bronch Wash and Stain DATE: 01/30/2021 10:46 SOURCE: Right Lower Lobe SITE: Reports Final 02/01/2021 09:52 No growth Pre 01/31/2021 07:02 No growth GS 01/30/2021 14:00 No organisms seen. Few White Blood Cells == ACC: [id number] ORDER: Culture Sputum and Stain DATE: 01/29/2021 23:26 SOURCE: Tracheal Aspirate SITE: Reports Final 02/01/2021 09:26 Light respiratory georgina isolated No Staph aureus or MRSA isolated. Pre 01/31/2021 06:54 Light respiratory georgina isolated GS 01/30/2021 06:17 <25 Epithelial cells/LPF >25 WBC/LPF Rare Gram Positive Cocci in pairs == ACC: [id number] ORDER: Culture AFB and Stain DATE: 01/30/2021 10:46 SOURCE: Bronchial Alveolar Lavage SITE: Lung R Reports AFB Stain Concentrate 01/31/2021 14:05 No Acid Fast Bacilli seen == ACC: [id number] ORDER: Culture Fungus DATE: 01/30/2021 10:46 SOURCE: Bronchial Alveolar Lavage SITE: Lung R Reports EMMY 01/30/2021 14:00 No Fungal elements seen == . Impression and Plan 1. Severe sepsis/cardiogenic shock on initial presentation with hypothermia, acute respiratory failure, ARF, lactic acidosis, and elevated procalcitonin after PEA arrest and bilateral pneumonia. 2. Bilateral multifocal pneumonia with bronchitis, CAP vs aspiration vs VAP, usual organisms including Streptococcus, Staphylococcus, gram-negative rods. Less likely Legionella. Covid negative on 01/30. 3. PEA arrest/coded with CPR and ACLS 01/29/21 during stress test. 4. Acute hypoxic respiratory failure/intubated 01/29 and extubated 01/31/21. On 2 L/min on 02/04. 5. Acute renal failure, ATN/pre-renal azotemia after cardiac arrest. 6. Lactic acidosis, likely from cardiogenic shock, and hypoperfusion. 7. Elevated procalcitonin, likely secondary to above. 8. Leukocytosis/neutrophilia, may be steroid induced, was normal value on admission, also related to cardiac arrest. 9. Hypothermia, improved. 10. Anemia, acute ?ABL vs chronic disease. 11. Hypocalcemia. 12. Hypoalbuminemia, mild malnutrition. Slightly worse. 13. Type 2 diabetes mellitus, with increased risk for infection. 14. Essential hypertension, dyslipidemia. 15. Hypothyroidism. Making progress on current regimen. Plan: 1. Diagnostically, follow blood and bronchoscopy cultures, physical examination, imaging, CBC, CMP, ESR, CRP, lactic acid, procalcitonin. Check Legionella and Strep pneumo UAg. Check MRSA surveillance culture. 2. Therapeutically, continue Zosyn renally dosed, doxycycline. Will need at least 7-10 days of antibiotics until 02/06 and then reassess. 3. Continue O2 support, 40% BiPAP on 02/02, worse. 2 L/min on 02/03, 02/04. Plan has been discussed with patient including side effects of medications and line. At increased risk for side effects of abx and line, readmission, and . documented in this encounter Plan of Treatment Not on file documented as of this encounter Visit Diagnoses Not on filedocumented in this encounter
--- OUTSIDE RECORDS SUMMARY | 2024-02-15 23:01 | XMS_ITS | Encounter Summary ---
Author Organization [employer] Address [address] [place] [id number] Care Team Providers Care Master Steam Yacht Name Role Phone Unavailable Primary Care Provider Unavailabl e Encounter Details Date Type Department Care Team (Late st Contact Info) Description 02/05/2021 Historic Encounter [facility] [address] [place] [address] Provider, [facility] Historical Social History Tobacco Use Types Packs/Day [...] Procedure Name Priority Date/Time Associated Diagnosis Comments MAGNESIUM LEVEL ([facility] DATA CONV) Routine 02/05/2021 7:21 AM EST documented in this encounter Results * MAGNESIUM LEVEL ([facility] DATA CONV) (02/05/2021 7:21 AM EST) Magnesium Level 2.0 1.5 - 2.4 mg/dL 02/05/2021 2:23 PM EST Blood 02/05/2021 7:21 AM EST 02/05/2021 12:35 PM EST [facility] Historical Provider LAB BLOOD ORDERABLES Fi nal Result [facility] [address] [place], [place] [address] [phone] documented in this encounter Visit Diagnoses Not on filedocumented in this encounter
--- OUTSIDE RECORDS SUMMARY | 2024-02-15 23:01 | XMS_ITS | Encounter Summary ---
Author Organization [employer] Address [address] [place] [address] Care Team Providers Care Client Program Manager Name Role Phone Unavailable Primary Care Provider Unavailabl e Encounter Details Date Type Department Care Team (Late st Contact Info) Description 02/04/2021 Historic Encounter [facility] [address] [place] [address] Provider, [facility] Historical Social History Tobacco Use Types Packs/Day [...] Priority Date/Time Associated Diagnosis Comments CALCIUM IONIZED ([facility] DATA CONV) Routine 02/04/2021 5:50 AM EST documented in this encounter Results * CALCIUM IONIZED ([facility] DATA CONV) (02/04/2021 5:50 AM EST) Calcium Ionized 1.15 1.12 - 1.32 mmol/L 02/04/2021 11:32 AM EST [facility] Blood 02/04/2021 5:50 AM EST 02/04/2021 11:02 AM EST [facility] Historical Provider LAB BLOOD ORDERABLES Fi nal Result [facility] [address] [phone] documented in this encounter Visit Diagnoses Not on filedocumented in this encounter
--- OUTSIDE RECORDS SUMMARY | 2024-02-15 23:01 | XMS_ITS | Encounter Summary ---
Author Organization [employer] Address [address] [place] [address] Care Team Providers Care Catalogue Illustrator Name Role Phone Unavailable Primary Care Provider Unavailabl e Encounter Details Date Type Department Care Team (Late st Contact Info) Description 02/04/2021 Transcribed Document [facility] [place] [facility] [place] [address] ProviderDick MD [facility] [place] [address] Social History Tobacco Use Types [...] Conversion Note - Historical ProviderMD - 02/04/2021 3:00 AM SUPERVISOR PROPELLANT CHARGE LOADING Nutrition Assessment Entered On: 02/04/2021 11:01 EST Performed On: 02/04/2021 15:23 EST by TAYLOR HERNANDEZ RD, LD Nutrition Assessment Current Nutrition Regimen Comment : 02/04: High f/u. [facility] with pt; [facility]t no teeth, but says she is eating >50% meals. Pt ok with adding Tuyet Glucerna. Pt to go to acute rehab on d/c. 01/31: c/s- EN recs, BMI >40. Pt is a 75 y/o female admitted to an OSH for a stress test. During test, pt became unresponsive and went into PEA. She required intubation and was transferred to this facility. Pt did not undergo hypothermia protocol. Discussed pt with pulmonary this morning. She will have a SBT today with possible extubation. Pt has an OGT. Will place a corpak and start EN if she remains intubated. Pt requiring pressor support. Dx: acute respiratory failure, PEA arrest, TAYLOR, septic shock, acute encephalopathy PMH: DM, HTN, colostomy Labs: BUN 45, Crea 2.1, Alb 2.2, FSB, 87, 94 Meds: docusate, abx, Pepcid, SSI, probiotic, steroid, senna LBM: + (02/02) Skin: No breakdown noted Diet; 60 gram CHO, cardiac PO intake: 40-50% meals Ht: 5'2 Wt: 78.2kg/172#, no new wt (02/04) BMI: 31.5 IBW: 110#, 156% Est nutrient needs: 4298-5064 kcals (14-16 kcal/kg), 90-100g pro (1.2 g/kg ABW vs 2.0 g/kg IBW) TAYLOR HERNANDEZ RD, ELLA - 02/04/2021 15:20 EST Nutrition Assessment Reason : Follow Up TAYLOR HERNANDEZ RD, ELLA - 02/04/2021 11:01 EST Nutrition Diagnoses Oral or Nutrition Support Intake : Inadequate oral intake Oral or Nutr Support Intake Related To : clinical condition Oral or Nutr Support Intake Evidenced by : 40-50% meals Oral or Nutrition Support Intake Status : Active TAYLOR HERNANDEZ RD, ELLA - 02/04/2021 15:20 EST Nutrition Interventions Meals and Snacks : Easy to chew diet Nutrition Supplement Therapy : Commercial beverage TAYLOR HERNANDEZ RD, - 02/04/2021 15:20 EST Nutrition Recommendations Dietitian Recommendations : 1. Encourage po intake. RD to add mech soft to diet order. RD to send Tuyet Glucerna BID. goal: >50% meals/ONS 2. Monitor weight 2x weekly Goal: prevent unintentional wt changes moderate nutrition risk TAYLOR HERNANDEZ RD, - 02/04/2021 15:20 EST documented in this encounter Plan of Treatment Not on file documented as of this encounter Visit Diagnoses Not on filedocumented in this encounter
--- OUTSIDE RECORDS SUMMARY | 2024-02-15 23:01 | XMS_ITS | Encounter Summary ---
Author Organization [employer] Address [address] [place] [address] Care Team Providers Care Middleware Administrator Name Role Phone Unavailable Primary Care Provider Unavailabl e Encounter Details Date Type Department Care Team (Late st Contact Info) Description 02/04/2021 Historic Encounter [facility] [address] [place] [address] Provider, [facility] Historical Social History Tobacco Use Types [...] Procedure Name Priority Date/Time Associated Diagnosis Comments CRP C-REACTIVE PROTEIN ([facility] DATA CONV) Routine 02/04/2021 5:50 AM EST documented in this encounter Results * (ABNORMAL) CRP C-REACTIVE PROTEIN ([facility] DATA CONV) (02/04/2021 5:50 AM EST) CRP 1.70(H) 0.00 - 0.30 mg/dL 02/04/2021 11:58 AM EST Blood 02/04/2021 5:50 AM EST 02/04/2021 11:02 AM EST us [facility] Historical Provider LAB BLOOD ORDERABLES Fi nal Result [facility] [address] [place], [place] [address] [phone] documented in this encounter Visit Diagnoses Not on filedocumented in this encounter
--- OUTSIDE RECORDS SUMMARY | 2024-02-15 23:01 | XMS_ITS | Encounter Summary ---
Author Organization [employer] Address [address] [place] [address] Care Team Providers Care Mail Distribution Clerk Name Role Phone Unavailable Primary Care Provider Unavailabl e Encounter Details Date Type Department Care Team (Late st Contact Info) Description 02/04/2021 Transcribed Document [facility] [place] Family Medicine [address] [place] [address] ProviderDick MD [address] [place] [address] Social History Tobacco Use Types [...] Note - Historical ProviderMD - 02/04/2021 5:00 AM HEALTH EDUCATION ASSISTANT Chart Check - Review Order Profile Entered On: 02/04/2021 3:22 EST Performed On: 02/04/2021 5:00 EST by JOELLEN BURK RN Chart Check Powerplans Initiated/Discontinued as Appropriate : Yes All Active Orders Reviewed : Yes Chart Reviewed With : JOELLEN BURK RN WINKLER, TERESA, RN - 02/04/2021 3:21 EST documented in this encounter Plan of Treatment Not on file documented as of this encounter Visit Diagnoses Not on filedocumented in this encounter
--- OUTSIDE RECORDS SUMMARY | 2024-02-15 23:01 | XMS_ITS | Encounter Summary ---
Author Organization [employer] Address [address] [place] [id number] Care Team Providers Care Caustic Strength Inspector Name Role Phone Unavailable Primary Care Provider Unavailabl e Encounter Details Date Type Department Care Team (Late st Contact Info) Description 02/04/2021 Transcribed Document [facility] [place] [facility] [place] [address] ProviderDick MD [address] [place] [address] Social History Tobacco Use Types [...] Conversion Note - Historical ProviderMD - 02/04/2021 6:11 PM DIRECTOR OF EPIDEMIOLOGY Patient: CISCO CAZARES Age: 75 Years Sex: Female : 1945 Subjective At the time of nephrology rounds, she is feeling better. She is breathing comfortably. She denies chest pain, palpitations or lightheadedness. She denies fever or sweats. She reports good appetite. Vital Signs T: 36.9 ??C TMIN: 36.4 ??C TMAX: 37.4 ??C HR: 62(Monitored) HR: 62 RR: 18 BP: 135/58 SpO2: 100% Oxygen Settings (Last) Oxygen Therapy Mode: Nasal cannula (02/05/21 04:39:00) Oxygen Flow Rate: 2 Liter/Min (02/05/21 04:39:00) Intake & Output Totals Last 24 Hours (7a-7a) Input Total: 981.03 mL Output Total: 1000 mL Balance: -18.97 mL Physical Exam Gen.: Alert, no acute distress, obese, sitting up in a chair Cardiovascular: Normal S1-S2, regular rhythm, normal rate no rub no gallop Pulmonary: Clear to auscultation bilaterally no wheezes or rhonchi, on oxygen per nasal cannula Genitourinary: Sanchez catheter draining clear alireza urine Musculoskeletal good muscle tone no significant lower extremity edema Skin: No lesions, rashes or ecchymoses, I did not examine the sacral area Assessment and plan: Acute kidney injury, improved-probable chronic kidney disease stage III Diabetes mellitus with diabetic nephropathy Hypertension Hyperkalemia-resolved Cardiac arrest, improved Acute kidney injury on chronic kidney disease stage III: Her clearance continues to improve. She is globally improving also. I suspect she has chronic kidney disease related to diabetes, hypertension. She reports that she lives in [place] and she can do outpatient nephrology clinic follow-up in [facility]. She reports good progress with physical therapy. -Recommend avoiding REJI inhibitor until her kidney function stabilizes especially with her history of hyperkalemia. -I've asked the nursing staff to coordinate outpatient nephrology follow-up with [facility] nephrology in [facility]. Or she can follow-up with me in [place]. Franck Huang MD -Nephrology Note dictated with [employer] voice recognition system Partner with Dr. Razo, Dr. Rodriguez and Dr. Shay Medications amLODIPine, 10 mg= 1 Tab, Oral, Daily Chloraseptic Menthol 1.4% topical spray, 1 Stanley, Oral, Q2H, PRN cloNIDine, 0.1 mg= 1 Tab, Oral, Q8H Coreg, 25 mg= 1 Tab, Oral, BID Dextrose 50% injection, 25 Gram= 50 mL, IV Push, Q15Min, PRN Dextrose 50% injection, 25 Gram= 50 mL, IV Push, Q15Min, PRN Dextrose 50% injection, 25 Gram= 50 mL, IV Push, Q15Min, PRN Dextrose 50% injection, 12.5 Gram= 25 mL, IV Push, Q15Min, PRN docusate sodium, 100 mg= 1 Cap, Oral, BID doxycycline + Sodium Chloride 0.9% intravenous solution 100 mL DuoNeb 0.5 mg-2.5 mg/3 mL inhalation solution, 3 mL, Nebulized Inhalation , RT_Daily, PRN glucagon, 1 mg= 1 mL, IntraMuscular, Q15Min, PRN glucose 4 g oral tablet, chewable, 16 Gram= 4 Tab, Chew, Q15Min, PRN glucose 40% oral gel, 15 Gram= 37.5 mL, Oral, Q15Min, PRN hydrALAZINE, 10 mg= 0.5 mL, IV Push, Q3H, PRN hydrALAZINE, 25 mg= 1 Tab, Oral, Q8H hydrOXYzine hydrochloride, 10 mg= 1 Tab, Oral, Q6H, PRN insulin lispro sliding scale, Scale C:, SubCutaneous, AC and at Bedtime isosorbide dinitrate, 10 mg= 1 Tab, Oral, Q8H labetalol, 10 mg= 2 mL, IV Push, Q1H, PRN lactobacillus acidophilus, 1 Cap, Oral, BID levothyroxine, 100 mcg= 1 Tab, Oral, Daily Lipitor, 40 mg= 1 Tab, Oral, At Bedtime Lovenox, 30 mg= 0.3 mL, SubCutaneous, U50UWol methylPREDNISolone sodium succinate, 40 mg= 1 mL, IV Push, Daily MiraLax, 17 Gram= 1 Packet, Oral, Daily, PRN Normal Saline Flush, 10 mL, IV Push, Q12H Normal Saline Flush, 10 mL, IV Push, See Comment, PRN Pepcid, 20 mg= 1 Tab, Oral, Daily Senokot, 8.6 mg= 1 Tab, Oral, BID Tylenol, 650 mg= 2 Tab, Oral, Q4H, PRN Zofran, 4 mg= 2 mL, IV Push, Q4H, PRN Zosyn + Sodium Chloride 0.9% intravenous solution 50 mL Lab Results Test Name Test Result Date/Time Sodium Level 146 mmol/L 02/04/2021 05:50 EST Potassium Level 4.7 mmol/L 02/04/2021 05:50 EST Chloride Level 114 mmol/L (High) 02/04/2021 05:50 EST Carbon Dioxide Level 21 mmol/L 02/04/2021 05:50 EST Anion Gap 16 02/04/2021 05:50 EST Glucose Level 92 mg/dL 02/04/2021 05:50 EST Blood Urea Nitrogen 45 mg/dL (High) 02/04/2021 05:50 EST Creatinine Level 2.10 mg/dL (High) 02/04/2021 05:50 EST eGFR 28 mL/min/1.73m2 (Low) 02/04/2021 05:50 EST eGFR NonAfrican 23 mL/min/1.73m2 (Low) 02/04/2021 05:50 EST Bun/Creatinine 21.4 (High) 02/04/2021 05:50 EST Calcium Level 7.8 mg/dL (Low) 02/04/2021 05:50 EST Protein Total 5.4 Gram/dL (Low) 02/04/2021 05:50 EST Albumin Level 2.2 Gram/dL (Low) 02/04/2021 05:50 EST Globulin 3.2 Gram/dL 02/04/2021 05:50 EST A/G Ratio 0.7 (Low) 02/04/2021 05:50 EST Bilirubin Total 0.5 mg/dL 02/04/2021 05:50 EST Alk Phos 38 Units/Liter 02/04/2021 05:50 EST AST 22 Units/Liter 02/04/2021 05:50 EST ALT 17 Units/Liter 02/04/2021 05:50 EST Magnesium Level 2.2 mg/dL 02/04/2021 05:50 EST Phosphorus 2.5 mg/dL 02/04/2021 05:50 EST Device Comment 1 Notified Nurse RBV 02/04/2021 20:43 EST Device Comment 1 Notified Nurse RBV 02/04/2021 16:37 EST Device Comment 1 Notified Nurse RBV 02/04/2021 10:13 EST Glucose POC2 319 mg/dL (High) 02/04/2021 20:43 EST Glucose POC2 275 mg/dL (High) 02/04/2021 16:37 EST Glucose POC2 99 mg/dL 02/04/2021 10:13 EST CRP 1.70 mg/dL (High) 02/04/2021 05:50 EST Lactate Dehydrogenase 264 Units/Liter (High) 02/04/2021 05:50 EST Lactic Acid Level 0.9 mmol/L 02/04/2021 08:00 EST Calcium Ionized 1.15 mmol/L 02/04/2021 05:50 EST WBC 9.4 K/uL 02/04/2021 05:50 EST RBC 3.04 Million/uL (Low) 02/04/2021 05:50 EST Hgb 9.3 g/dL (Low) 02/04/2021 05:50 EST Hct 28.5 % (Low) 02/04/2021 05:50 EST MCV 93.8 fL 02/04/2021 05:50 EST MCH 30.6 pg 02/04/2021 05:50 EST MCHC 32.6 Gram/dL 02/04/2021 05:50 EST Platelet Count 231 K/uL 02/04/2021 05:50 EST MPV 10.8 fL 02/04/2021 05:50 EST RDW 16.4 % (High) 02/04/2021 05:50 EST Neut % 73.6 % (High) 02/04/2021 05:50 EST Neut # 6.89 K/uL (High) 02/04/2021 05:50 EST Lymph % 15.3 % (Low) 02/04/2021 05:50 EST Lymph # 1.43 x10(3)/uL 02/04/2021 05:50 EST [place] % 10.2 % (High) 02/04/2021 05:50 EST [place] # 0.96 K/uL 02/04/2021 05:50 EST Eos % 0.1 % 02/04/2021 05:50 EST Eos # .01 x10(3)/uL 02/04/2021 05:50 EST Baso % 0.1 % 02/04/2021 05:50 EST Baso # .01 x10(3)/uL 02/04/2021 05:50 EST Slide Review No 02/04/2021 05:50 EST IG# 0.07 x10(3)/uL (High) 02/04/2021 05:50 EST IG% 0.70 % (High) 02/04/2021 05:50 EST Fibrinogen Level 339 mg/dL 02/04/2021 05:50 EST Procalcitonin 4.31 ng/mL (High) 02/04/2021 05:50 EST Electronically signed by [facility], [facility] Conversion Quilt Sewer Cerner at 06/22/2022 7:35 PM CDT documented in this encounter Plan of Treatment Not on file documented as of this encounter Visit Diagnoses Not on filedocumented in this encounter
--- OUTSIDE RECORDS SUMMARY | 2024-02-15 23:01 | XMS_ITS | Encounter Summary ---
Author Organization [email or web address] Address [address] [place] [address] Care Team Providers Care Fire Captain Name Role Phone Unavailable Primary Care Provider Unavailabl e Encounter Details Date Type Department Care Team (Late st Contact Info) Description 02/05/2021 Transcribed Document [facility] [place] [address] ProviderDick MD [address] [place] [address] Social History Tobacco Use Types [...] - Historical ProviderMD - 02/05/2021 1:23 PM DIRECTOR VALIDATION Patient Education Materials Follows: Hypertension, Adult High blood pressure (hypertension) is [...] Limit how much you use to: ? 0?1 drink a day for women. ? 0?2 drinks a day for men. ? Be aware of how much alcohol is in your drink. In the [place] one drink equals one 12 oz bottle of beer (355 mL), one 5 oz glass of wine (148 mL), or one 1? oz glass of hard liquor (44 mL). [...] provider. This is important. Medicines ??? Take bhut-suh-xsjkeor and prescription medicines only as told by [...] provider. Document Revised: 11/02/2018 Document Reviewed: 11/02/2018 [employer] Patient Education ? 2020 [employer] Neurology Weakness Weakness is a lack of strength. [...] to get enough sleep. Most adults need 7?8 hours of quality sleep each night. Talk to your health care provider about how much sleep you need each night. ??? Do exercises, such as arm curls and leg raises, for 30 minutes at least 2 days a week or as told by your health care provider. This helps build muscle strength. ??? Consider working with a physical therapist or sap trainer who can develop an exercise plan to help you gain muscle strength. General instructions ??? Take ssaf-jns-xbwgtfs and prescription medicines only as told by [...] to get enough sleep. Most adults need 7?8 hours of quality sleep each night. ??? Eat a healthy, well-balanced diet. This information is not intended to replace advice given to you by your health care provider. Make sure you discuss any questions you have with your health care provider. Document Revised: 09/28/2018 Document Reviewed: 09/28/2018 [employer] Patient Education ? 2020 [employer]. Pulmonary Medicine Acute Respiratory Distress Syndrome, Adult Acute respiratory [...] these instructions at home: Medicines ??? Take sgno-qyi-hctmrak and prescription medicines only as told by [...] important. Where to find more information ??? [place] [employer]: https://www.lung.org/ ??? ARDS Foundation: https://ardsglobal.org/ [...] provider. Document Revised: 04/08/2020 Document Reviewed: 03/21/2020 [employer] Patient Education ? 2020 [employer]. Acute Respiratory Failure, Adult Acute respiratory failure [...] in breathing, such as myasthenia gravis or Guillain?Crandall? syndrome. ??? A serious infection. ??? A [...] these instructions at home: Medicines ??? Take aphe-icz-qtsixur and prescription medicines only as told by [...] breathe, such as a ventilator. ??? Take xhhd-tnb-vknbfgn and prescription medicines only as told by your health care provider. ??? Contact a health care provider if your symptoms do not improve or if they get worse. This information is not intended to replace advice given to you by your health care provider. Make sure you discuss any questions you have with your health care provider. Document Revised: 02/09/2020 Document Reviewed: 02/09/2020 [employer] Patient Education ? 2020 [employer]. documented in this encounter Plan of Treatment Not on file documented as of this encounter Visit Diagnoses Not on filedocumented in this encounter
--- OUTSIDE RECORDS SUMMARY | 2024-02-15 23:01 | XMS_ITS | Encounter Summary ---
Author Organization [employer] Address [address] [place] [id number] Care Team Providers Care Jd Edwards Developer Name Role Phone Unavailable Primary Care Provider Unavailabl e Encounter Details Date Type Department Care Team (Late st Contact Info) Description 02/04/2021 Transcribed Document [facility] [place] [facility] [place] [address] [place] [address] Social History Tobacco Use Types Packs/Day Years Used Date Smoking Tobacco: Never Assessed Comments Unknown Sex and Gender Information Value Date Recorded Sex Assigned at Female 09/02/2021 8:59 PM CDT Legal Sex Female 8:59 PM CDT Gender Identity Female 09/02/2021 8:59 PM CDT Sexual Orientation Not on file documented as of this encounter Miscellaneous Notes * Cerner Conversion Note - Historical Provider, - 02/04/2021 4:46 PM HOME TEACHING GRADES 9 THRU 12 TEACHER Admission History, Adult Entered On: 01/29/2021 23:44 EST Performed On: 02/04/2021 16:46 EST by Eamon Gonzales Non Emp RN Advance Directive Patient has Advance Directive *Q : Unable to obtain Reason AD Information Not Obtained : Patient unresponsive Eamon Gonzales Non Emp RN - 01/29/2021 23:43 EST Anesthesia/Transfusion History Family History of Anesthesia Reaction : No prior transfusion(s) Transfusion History : Unknown Family History of Anesthesia Reaction : Unknown Donna Boswell RN - 02/04/2021 16:45 EST Functional Assessment Living Situation : Home Patient Lives With : Alone Persons Assisting Patient at Home : Alone Current Home Treatments : None Professional Skilled Services : None Donna Boswell RN - 02/04/2021 16:45 EST General Info Want Family/Rep/Phys Notified of Admit : No Emergency Contact #2 : na Emergency Contact #2 Phone Number : parth Emergency Contact #2 Relationship : parth Information Obtained From : Patient Primary Language : Eritrean Communication Barrier : None Cable Machine Operator Needed : No Donna Boswell RN - 02/04/2021 16:45 EST Unable to Assess Patient History : Patient unresponsive Patient Arrival Date/Time : 01/29/2021 22:00 EST Legal Guardian : market specialist Zakia GonzalesMacrina cloud RN - 01/29/2021 23:47 EST Contact Password : Lili Jenkins Non Emp RN - 02/02/2021 19:04 EST Emergency Contact #1 : Eunice Cazares Emergency Contact #1 Emergency Contact #1 Relationship : Daughter Eamon Gonzales, Macrina Duran RN - 01/29/2021 23:47 EST Fall Risk Scales ABCs Fall Injury Risk Identification : Age ABC Fall Injury Risk : Moderate to high injury risk Injury Moderate to High Risk Interventions : Transport methods appropriate to patient, Visual cues in place CALLAHAN Hx Falls Immediate/Within 3 Months : No Callahan Secondary Diagnosis : Yes CALLAHAN Use of Ambulatory Aid : Bed rest/Nurse assist CALLAHAN IV Therapy or IV Access : Yes Jodie Gait/Transferring : Weak Callahan Mental Status : Oriented to own ability [place]ahan Fall Risk Score : 45 CALLAHAN Fall Scale Risk Level : 25-45 Medium Risk [place] Fall Interventions : Adequate lighting, Assistive devices within reach, Bed in low position, Call device within reach, Frequent orientation to call device, Frequent orientation to surroundings, Hourly comfort/safety rounds, Room free of clutter/spills, Upper side-rails up, Wheels locked, Wires/Cords secured Fall Moderate to High Risk Interventions : Transport methods appropriate to patient, Visual cues in place Donna Boswell RN - 02/04/2021 16:45 EST Fall Risk Education Grid Alarms : Verbalizes understanding Call light use : Verbalizes understanding Fall Prevention Protocol : Verbalizes understanding Transfer/Mobility Techniques : Verbalizes understanding Wait for Assistance : Verbalizes understanding Donna Boswell RN - 02/04/2021 16:45 EST Barriers to Learning : None evident Individuals Taught : Patient Readiness to Learn : Cooperative Baseline Knowledge of Topic : None Teaching Method : Explanation Learning Style Preferences Family : Verbal explanation Learning Style Preferences Patient : Verbal explanation Fall Risk Scale Calc Temp : 0 Donna Boswell RN - 02/04/2021 16:45 EST Health Histories Smoking Status : Never (less than 100 in lifetime; none in last 30 days) Smokeless Tobacco Status : Never Donna Boswell RN - 02/04/2021 16:45 EST Social History (As Of: 02/04/2021 16:50:55 EST) Height and Weight, Clinical Dosing Height Source : Measured Height Entry Format : Metric Height, Centimeters : 122.5 cm(Converted to: 4 ft 0 Inch, 48.23 Inch) Clinical Height : 122.5 cm Weight Source : Bed scale Weight Entry Format : Metric, kilograms Weight, Kilograms : 78.2 kg(Converted to: 172 lb 6 oz) Clinical Dosing Weight : 78.2 kg Body Surface Area (BSA) : 1.5 m2 Body Mass Index : 52.1 kg/m2 (>HHI) [place] Body Weight : 18 kg Eamon Gonzales Non Emp RN - 01/30/2021 0:23 EST Infectious Disease History Does patient have symptoms of COVID-19? : No Has the Patient Been Tested for COVID-19 in the last 14 days? : No, Patient stated Does the Patient state known exposure to a COVID-19 positive case in the last 14 days? : No Patient Vaccinated for COVID-19 : Partially vaccinated or need booster Does Patient want a COVID-19 Vaccine? : Unable to obtain or unsure Donna Boswell RN - 02/04/2021 16:45 EST Infectious Disease Risk Screening Grid Cough < 2 wks of unknown origin : NO Cough > 2 weeks : NO Blood in Sputum : NO Fever or self-reported Fever : NO Rash of unknown origin : NO Headache : NO Stiff neck : NO Night Sweats : NO Unexplained Weight Loss : NO Diarrhea (3 episode per day) : NO Donna Boswell RN - 02/04/2021 16:45 EST Physical contact outside [place] in the last 30 days : No Hospitalized in Foreign Country : No Infectious Disease History : None INF Disease TB Screening Calc : 0 INF Disease Recent Travel Calc : 0 Donna Boswell RN - 02/04/2021 16:45 EST Influenza Vaccine Asmt, Adult Previous Vaccines from Immunization Schedule : No qualifying data available. Influenza Immunization, Current Season : Yes Influenza Immunization Date : 12/25/2020 EDT Donna Boswell RN - 02/04/2021 16:45 EST Pneumococcal Vaccine Previous Vaccines from Immunization Schedule : No qualifying data available. Pneumonia Immunization Received : Unknown Pneumococcal Risk Assessment < Age 65 : N/A- Patient 65 years of age or older Pneumococcal Vaccine Contraindications : No contraindications to pneumococcal vaccine Transplant Workup/Recent Transplant : No Order for Pneumococcal Vaccine : Declined Vaccination Donna Boswell RN - 02/04/2021 16:45 EST Order Details Transport Mode Order Detail : Stretcher/Gurney Isolation Precautions Order Detail : Standard Precautions Order Detail : N/A IV Order Detail : 1 Oxygen Order Detail : 1 Nurse Collect Order Detail : 0 Lift/Transfer : Moderate assist Central Line Order Detail : Yes Room Service : Not Appropriate Arterial Line : No Patient Needs Meds Crushed/Liquid : No Donna Boswell RN - 02/04/2021 16:45 EST Nutrition History Eating Poorly Due to Decreased Appetite : No Unplanned Weight Loss in Past 3-6 Months : No Malnutrition Screening Tool Total(mal) : 0 Malnutrition Screening Tool Risk Level : Patient not at risk Donna Boswell RN - 02/04/2021 16:45 EST [place] Suicide Severity Rating Scale (C-SSRS) CSSRS Past Month Wish to be : No CSSRS Past Month Suicidal Thoughts : No CSSRS Lifetime Suicide Behavior : No Suicide Severity Rating Score : 0 Suicide Severity Rating : No Additional Care Required at this time Thoughts of Harming/Killing Others : No Donna Boswell RN - 02/04/2021 16:45 EST Psychosocial History Currently in Unsafe Situation : No Donna Boswell RN - 02/04/2021 16:45 EST Sleep Apnea Risk Assmt Hx of Obstructive Sleep Apnea Diagnosis : No Snore Loudly : No Tired, Fatigued, or Sleepy During Day : No Observed Stopping Breathing During Sleep : No Have/Are Being Treated for Hypertension : Yes BMI Greater Than 35 kg/m2 : Yes Age over 50 Years Old : Yes Neck Circumference Greater Than 40 cm : Yes Gender Male : No STOP-BANG Sleep Apnea Risk Level Score : 4 Donna Boswell RN - 02/04/2021 16:45 EST Valuables and Belongings Valuables and Belongings : Personal devices Personal Device Disposition : Bedside, With patient Personal Devices : Hair piece/wig Donna Boswell RN - 02/04/2021 16:45 EST Electronically signed by [facility], [facility] Conversion Nanotechnology Engineering Technician Cerner at 06/22/2022 7:20 PM CDT documented in this encounter Plan of Treatment Not on file documented as of this encounter Visit Diagnoses Not on filedocumented in this encounter
--- OUTSIDE RECORDS SUMMARY | 2024-02-15 23:01 | XMS_ITS | Encounter Summary ---
Author Organization [employer] Address [address] [place] [address] Care Team Providers Care Management Engineer Name Role Phone Unavailable Primary Care Provider Unavailabl e Encounter Details Date Type Department Care Team (Late st Contact Info) Description 02/04/2021 Transcribed Document [facility] [place] [address] ProviderDick MD [address] [place] [id number] Social History Tobacco Use Types Packs/Day [...] Conversion Note - Historical ProviderMD - 02/04/2021 10:37 AM UPHOLSTERER [facility]OUSINE [facility] HEARSE Patient: CISCO NIELSEN Age: 75 years Sex: Female : 1945 Associated Diagnoses: None Author: MARCY FORMAN MD Basic Information Date of consult: 01/29/21 Date of admission: 01/29/21 Requesting physician: Dr Riojas Reason for consult: Vent/critical care management Chief complaint: Unable to obtain, sedated on ventilator History of present illness: History is very limited at this time to chart review. Apparently patient was at outlying facility receiving a stress test. She was laid in prone position and began complaining of shortness of breath. She became less responsive. Patient subsequently went unresponsive and pulseless. She was found to have pulseless electrical activity. CPR and ACLS was started promptly. The length of the code is not documented. Time of documentation of the code was 1517. Patient did regain a perfusing rhythm which was found to be atrial fibrillation by their documentation. She had ineffective respirations and was intubated and placed on mechanical ventilation. She was apparently hypertensive and placed on nitroglycerin infusion as well as amiodarone infusion for atrial fibrillation. Patient was transferred to [facility] for further evaluation and higher level of care. Patient was admitted to the ICU pulmonary/critical care was consulted for vent and critical care management. At time of evaluation patient is on the ventilator with settings TV 400, rate 16, PEEP 12, FiO2 100%. She is currently not on sedation, not arousing or following any commands, no response to painful stimuli. Hemodynamically stable and not on vasopressors. Currently afebrile. No failure present at bedside. Per documentation Past medical history: Diabetes mellitus type 2 Hypertension Surgical history: Cardiac catheterization Colonoscopy Colostomy Hysterectomy Thyroidectomy Family history: Cancer, heart attack, hyperlipidemia, hypertension Social history: Never smoker. No drug or alcohol use documented 01/30: Patient in the ICU on the ventilator, PEEP 8, FiO2 75%. Patient was initially unresponsive however she did arouse and follow commands overnight, added Precedex and fentanyl for sedation. Currently sedated but will arouse, occasion follow hand grasp commands, RASS 0, -1. Patient initially was hemodynamically stable however developed hypotension overnight, added norepinephrine to maintain mean arterial pressure greater than 65, currently 0.3 mcg/kg/min. Urine output 400 cc overnight, renal function slightly improved. Obtained CT scan of the chest overnight which I reviewed and showed bilateral significant consolidations consistent with pneumonia. Currently afebrile 01/31: Patient remains in the ICU on the ventilator, PEEP 10, FiO2 75% (decreased FiO2 to 60%), saturation 100%. She is sedated with Precedex and fentanyl, she will grimace to physical stimuli but not following commands, RASS -4. Urine output 500 cc overnight, fluid balance +2600 cc in last 24 hours, renal function worsening. Few secretions from endotracheal tube. Hemodynamically remains on norepinephrine 0.1 mcg/kg/min-weaning down. Currently afebrile. Post fiberoptic bronchoscopy with BAL yesterday. Reviewed portable chest x-ray: Good improvement in aeration in the lungs bilaterally. on trial this am , cuff leak + , ABG is good , awake , and following commands, mild secretions , proceed to extubate 02/01: . Overnight, RN reports that patient became hypertensive and tachycardic and was started on precedex drip, patient had required Cardene drip earlier , and she is not be giiven meds po , thus NG tube was ordered , Patient seen and examined on 3L NC. She is awake and alert, and answering orientation questions appropriately, which remains on at time of exam. Currently, she is afebrile. No other new events noted per RN. She is currently on NS at 75ml/hr. Serum creatinine 2.3 which is trending down today. Leukocytosis improving today as well. Patient failed speech eval today. She has had 1.5L of UOP for overall fluid balance of +605ml. 02/02: Patient in bed, awake and follows commands, weak. Denies chest pain,, fever, chills. Patient had tachypnea and increased work of breathing overnight. Patient did have a couple of vomiting episodes yesterday therefore NG tube was placed and patient was placed on BiPAP. currently on BiPAP 19/10, FiO2 50%. hemodynamically she remains on Cardene for hypertensive control. Good urine output, renal function improving. Currently afebrile. Chest x-ray reviewed, left lung infiltrates slightly worse 02/03: Patient awake, follows commands. Remains very weak. No chest pain or fever. She does have a mild cough occasionally productive of phlegm. Tachypnea and work of breathing has resolved. On 2 L O2 with adequate saturation. Good urine output however renal function worse today. Hemodynamically stable and afebrile. 02/04: Awake and alert, follows all commands. Sitting up eating breakfast. On 2L NC, 97%. Wore NIPPV 40% overnight. CXR improved today. Cr 2.10. Hemodynamically stable. No new complaints. Normal WBC, decreasing Procalcitonin. Intake & Output Totals Last 24 Hours (7a-7a) Intake (22 Events) Medications (421.03 mL) Output (1 Events) Sanchez Catheter (1000 mL) Input Total: 421.03 mL Output Total: 1000 mL Balance: -578.97 mL ICU day: 7 TLDL: 01/30/2021 Review of Systems Constitutional: Weakness, Fatigue, No fever, No chills, No sweats. Eye: No recent visual problem, No visual disturbances. Ear/Nose/Mouth/Throat: No nasal congestion, No sore throat. Respiratory: Cough, Sputum production, No shortness of breath. Cardiovascular: No chest pain. Gastrointestinal: No nausea, No vomiting. Genitourinary: No change in urine stream. Hematology/Lymphatics: No bruising tendency, No bleeding tendency. Endocrine: No cold intolerance, No heat intolerance. Musculoskeletal: No muscle pain. Integumentary: No rash, No breakdown. Neurologic: Alert and oriented X4. Psychiatric: No anxiety. reviewed, evaluated, and updated Health Status Allergies: Allergic Reactions (Selected) No Known Allergies, Allergies (1) Active Reaction No Known Allergies None Documented Current medications: (Selected) Inpatient Medications Ordered Chloraseptic Menthol 1.4% topical spray: 1 [place], Oral, Q2H, PRN: Sore Throat Core mg, [...] Oral, At Bedtime Lovenox: 30 mg, SubCutaneous, [id number] MiraLax: 17 Gram, Oral, Daily, PRN: Constipation Normal Saline Flush: 10 mL, IV Push, Q12H Normal Saline Flush: 10 mL, IV Push, See Comment, PRN: IV Use Pepcid: 20 mg, Oral, Daily SOLU-Medrol: 40 mg, IV Push, [id number] Senokot: 8.6 mg, Oral, BID Tylenol: 650 mg, Oral, Q4H, PRN: Fever Zofran: 4 mg, IV Push, Q4H, PRN: Nausea Zosyn + Sodium Chloride 0.9% intravenous solution 50 mL: 2.25 Gram, 16.67 mL/Hr, IV Piggyback, Q8HInt amLODIPine: 10 mg, Oral, Daily cloNIDine: 0.1 mg, Oral, Q8H docusate sodium: 100 mg, Oral, BID doxycycline + Sodium Chloride 0.9% intravenous solution 100 mL: 100 mg, 50 mL/Hr, IV Piggyback, [id number] glucagon: 1 mg, IntraMuscular, Q15Min, PRN: Other (See Comment) glucose 4 g oral tablet, chewable: 16 Gram, 4 Tab, Chew, Q15Min, PRN: Other (See Comment) glucose 40% oral gel: 15 Gram, 37.5 mL, Oral, Q15Min, PRN: Other (See Comment) hydrALAZINE: 10 mg, IV Push, Q3H, PRN: Hypertension hydrOXYzine hydrochloride: 10 mg, Oral, Q6H, PRN: Anxiety insulin lispro sliding scale: Scale C:, SubCutaneous, AC and at Bedtime isosorbide mononitrate: 90 mg, Oral, Daily labetalol: 10 mg, IV Push, Q1H, PRN: Hypertension lactobacillus acidophilus: 1 Cap, Oral, BID levothyroxine: 100 mcg, Oral, Daily Documented Medications Documented amLODIPine 2.5 mg oral tablet: 1 Tab, Oral, Daily, 0 Refill(s) clonidine 0.3 mg oral tablet: 1 Tab, Oral, BID, 0 Refill(s) furosemide 40 mg oral tablet: 1 Tab, Oral, Daily, 0 Refill(s) glipiZIDE 10 mg oral tablet, extended release: 1 Tab, Oral, BID With Meals, 0 Refill(s) isosorbide mononitrate 60 mg oral tablet, extended release: 1.5 Tab, Oral, Daily, 0 Refill(s) levothyroxine 100 mcg (0.1 mg) oral tablet: 1 Tab, Oral, Daily, 60 Tab, 0 Refill(s) lisinopril 20 mg oral tablet: 1 Tab, Oral, BID, 0 Refill(s) pioglitazone 45 mg oral tablet: 1 Tab, Oral, Daily, 0 Refill(s) simvastatin 20 mg oral tablet: 1 Tab, Oral, At Bedtime, 0 Refill(s), Medications (32) Active Scheduled: (16) #NaCl 0.9% *FLUSH* inj [...] 0.9% 100 mL 100 mg, IV Piggyback, [id number] enoxaparin 30 mg/0.3 ml inj 30 mg 0.3 mL, SubCutaneous, [id number] famotidine 20 mg tab 20 mg 1 Tab, Oral, Daily insulin lispro 1 unit/0.01 mL inj Scale C:, SubCutaneous, AC and at Bedtime isosorbide MONOnitrate ER 30 mg tab 90 mg 3 Tab, Oral, Daily lactobacillus acidophilus cap 1 Cap, Oral, BID levothyroxine 100 mcg tab 100 mcg 1 Tab, Oral, Daily methylPREDNISolone SUCCinate 40 mg inj 40 mg, IV Push, [id number] piperacillin-tazobactam + NaCl 0.9% 50 mL 2.25 [...] Push, Q4H phenol 1.4% throat spray 1 [place], Oral, Q2H polyethylene glycol 3350 pwd 17 g pkt 17 Gram 1 Packet, Oral, Daily Problem list: All Problems Hypertension / SNOMED CT [id number] / Confirmed, Active Problems (1) Hypertension Physical Examination VS/Measurements Vitals Signs (last 24 hrs) Last Charted Minimum Maximum Temp 97.6 (FEB 04 05:38) 97.6 (FEB 04 05:38) 98.6 (FEB 03 12:00) Apical HR 63 (FEB 04 06:45) 63 (FEB 04 06:45) 85 (FEB 03 13:52) Mon HR 67 (FEB 04 10:26) 63 (FEB 04 05:38) 104 (FEB 03 23:10) Resp Rate 16 (FEB 04 10:) 16 (FEB 04:) H 48 (FEB 03 15:07) SBP 134 (FEB 04 05:38) 134 (FEB 04 05:38) H 190 (FEB 03 20:13) DBP 83 (FEB 04 05:38) L 55 (FEB 03 23:10) H 118 (FEB 03 17:00) MAP 112 (FEB 04 05:38) 75 (FEB 03 23:10) 130 (FEB 03 17:00) SpO2 L 93 (FEB 04 10:26) L 93 (FEB 04 10:26) 100 (FEB 03 11:00) General: Alert and oriented, No acute distress, on 2L NC. Eye: Pupils are equal, round and reactive to light, Normal conjunctiva, Exophthalmos. HENT: Normocephalic, Oral mucosa is moist. Neck: Supple, Non-tender, No carotid bruit, No lymphadenopathy. Respiratory: Breath sounds are equal, course BS right lung . Cardiovascular: Normal rate, Regular rhythm, S1, S2, Good pulses equal in all extremities, Normal peripheral perfusion. Gastrointestinal: Soft, Non-tender, Non-distended, Normal bowel sounds. Genitourinary: Support: Urinary catheter ( Indwelling ). Musculoskeletal: No swelling, No deformity. Integumentary: Warm, Intact. Neurologic: Alert, Oriented, No focal deficits. Psychiatric: Cooperative, Appropriate mood & affect. Review / Management JAN 31 03:19 140 110 H 32 / H 182 4.4 22 H 2.60 \ Results review: Labs (Last four charted values) WBC 9.4 (NOV 30) 7.7 (NOV 29) H 11.6 (NOV ) H 15.0 (NOV ) HB L 9.3 (NOV 30) L 8.4 (NOV 29) L 8.7 (NOV 28) L 8.9 (NOV ) HCT L 28.5 (NOV 30) L 26.1 (NOV 29) L 26.3 (NOV ) L 26.3 (NOV ) Plt 231 (NOV 30) 214 (NOV 29) 233 (NOV ) 216 (NOV ) Na 146 (NOV 30) 144 (NOV 29) 146 (NOV ) 141 (NOV ) K 4.7 (NOV 30) 4.1 (NOV 29) 3.8 (NOV ) 3.7 (NOV ) Cl H 114 (NOV 30) H 118 (NOV 29) H 118 (NOV ) 112 (NOV ) CO2 21 (NOV 30) 21 (NOV 29) 21 (NOV ) 23 (NOV ) BUN H 45 (NOV 30) H 43 (NOV 29) H 35 (NOV ) H 32 (NOV ) Cr H 2.10 (NOV 30) H 2.30 (NOV 29) H 2.20 (NOV ) H 2.30 (NOV ) Glu R 92 (NOV 30) H 143 (NOV 29) H 203 (NOV ) H 177 (NOV ) Ca L 7.8 (NOV 30) L 7.6 (NOV 29) L 7.6 (NOV 28) L 7.9 (NOV ) Lactic 0.9 (NOV 30) 0.7 (NOV 29) 1.2 (NOV ) 1.7 (NOV 25) PT H 12.5 (NOV 24) INR 1.2 (NOV 24) PTT 31.8 (NOV 24) AST 22 (NOV 30) 23 (NOV 29) 28 (NOV 28) 28 (NOV 27) ALT 17 (NOV 30) 14 (NOV 29) 17 (NOV 28) 13 (NOV 27) ALK P 38 (NOV 30) 43 (FEB 03) 53 (FEB 02) 50 (FEB 01) T Bili 0.5 (FEB 04) 0.5 (FEB 03) 0.5 (FEB 02) 0.5 (FEB 01) PTN L 5.4 (FEB 04) L 5.2 (FEB 03) L 5.8 (FEB 02) L 5.5 (FEB 01) ALB L 2.2 (FEB 04) L 2.4 (FEB 03) L 2.6 (FEB 02) L 2.4 (FEB 01) Troponin C 0.771 (JAN 29) . Radiology Results (Last 48 hours) [id number] -- 01/29/2021 22:07 CR Chest 1 Vw [...] agree with the above final transcribed report. CR Chest 1 Vw Portable (02/04/2021 06:55) Result: PORTABLE CHEST; HISTORY: Pneumonia.COMPARISON: February 03, 2021.FINDINGS: There is a right IJ central line. The heart is enlarged andstable in size. The mediastinum is unremarkable. There are decreasedpulmonary opacities. There is improved aeration. There is nopneumothorax. IMPRESSION: Improved aeration with decreased pulmonary opacities. Images reviewed, interpreted, and dictated by Dr. Austin Contreras.Transcribed by Tricia Peck PA-C.I have personally viewed, interpreted and dictated the examination. Ihvince read and agree with the above final transcribed report. CT scan of the chest done 01/30/2021 reviewed and visualized and patient has extensive bilateral opacities/consolidations very minimal pleural effusions (I disagree with the blood moderate) ET tube in appropriate place. Patient has a right internal jugular ending in SVC. CXR 01/31: improvement in aeration and decreased infiltrates ETT in good place no pneumo Chest x-ray 02/01/2021 reviewed and visualized and patient has increased infiltrates bilaterally no pneumothorax right pleural effusion however his chest x-ray have improved compared to previous x-rays prior to 1125. CXR 02/02 : worse : compared to previous CXR althea in the right reviewed Microbiology 02/01 MRSA surveillance is pending 01/30 bronch cultures negative 01/30 blood culture is pending Antibiotics Zosyn/Zyvox/doxycycline we will stop Zyvox at this time Impression and Plan Acute hypoxemic respiratory failure; improved extubated 01/31 Intubated sec to CP arrest/unclear time to ROSC Patient stated that she was doing some kind of testing and she was placed in her prone positioning, she developed worsening shortness of breath probably related to aspiration Unclear if the patient had aspiration in outside hospital during arrest However patient has dense consolidations mid to lower lungs bilaterally highly likely aspiration pneumonitis versus bacterial pneumonia Bilateral infiltrates on cxr: Right lung field greater than left S/p bronch 01/30, s/p therapeutic aspiration of secretions/ mucopurulent / mod erythema Obtain and reviewed CT chest WO: Bilateral infiltrates with severe consolidation. Likely community-acquired pneumonia vs aspiration Non smoker Cardiovascular PEA arrest at [facility], unknown time, brief - most probable respiratory arrest vs other History of hypertension required cardene , on multiple meds Renal Acute kidney injury, non-oliguric, now improving Infectious disease Septic shock; resolved Bilateral infiltrates with consolidation: Probable community-acquired pneumonia Versus aspiration pneumonitis impoved Leukocytosis, now improving Endocrinology Type 2 diabetes mellitus Hypothyroidism on levothyroxine at home Exophthalmus GI/Nutrition Stable NPO per speech , will place NG tube for TF and meds , repeat speech eval in am Hem/Onc No leukocytosis Mild anemia Neurology Awake and alert Post CP arrest CT head with no acute abnormalities at [facility] 01/29 1600 Acute encephalopathy/resolved . PLAN: Supplemental O2 to maintain sats >94% NIPPV prn and with Sleep Optimized BP management; Nrovasc change to 10 mg daily clonidine 0.1mg TID coreg 12.5 mg bid continue isosorbide monitrite May use hydroxyzine 10mg PO q6H PRN for anxiety Solumerol 40 daily --will taper over 1 to 2 weeks Blood culture pending -NGTD Sputum culture Follow BAL--NEG MRSA screen --NEG Antibiotics: -On Zosyn 2.25g IV q8, doxycycline 100mg IV q12 Renal is following Will have PT/OT Speech therapy following, passed Glycemic control: SSIq6 Levothyroxine 100mcg daily (home dose) Prophylaxis: Pepcid/Lovenox sq Patient likely suffered from aspiration pneumonia. Prior CT scan on admission showed bilateral dense consolidation consistent with pneumonia. Patient likely has also pulmonary edema. Chest x-ray significantly improved. Continue current therapy. I have personally evaluated the patient; history and review of systems, physical examination, laboratory studies and radiology data. I have actively directed the medical care, formulated diagnosis and plan and discussed it with our team. Chest imaging reviewed independent of the radiologist report Full code Discussed with the patient Complex case documented in this encounter Plan of Treatment Not on file documented as of this encounter Visit Diagnoses Not on filedocumented in this encounter
--- OUTSIDE RECORDS SUMMARY | 2024-02-15 23:01 | XMS_ITS | Encounter Summary ---
Author Organization [employer] Address [address] [place] [address] Care Team Providers Care Senior Foreman Name Role Phone Unavailable Primary Care Provider Unavailabl e Encounter Details Date Type Department Care Team (Late st Contact Info) Description 02/05/2021 Historic Encounter [address] [address] ProviderBronwyn Historical Social History Tobacco [...] Date/Time Associated Diagnosis Comments GLUCOSE-POC Routine 02/05/2021 10:54 AM EST documented in this encounter Results * (ABNORMAL) Glucose, Point of Care (02/05/2021 10:54 AM EST) Glucose POC2 297(H) 70 - 110 mg/dL 02/05/2021 3:54 PM EST [facility] Hand Therapist [id number] 02/05/2021 3:54 PM EST [facility] Device SN [id number] 02/05/2021 3:54 PM EST [facility] Device Comment1 Notified Nurse RBV 02/05/2021 3:54 PM EST [facility] Blood 02/05/2021 10:5 4 AM EST 02/05/2021 3:55 PM EST [facility] Historical Provider POINT OF CARE TEST JEFFREY MERIDA Final Result [facility] [address] [phone] documented in this encounter Visit Diagnoses Not on filedocumented in this encounter
--- OUTSIDE RECORDS SUMMARY | 2024-02-15 23:01 | XMS_ITS | Encounter Summary ---
Author Organization [employer] Address [address] [place] [address] Care Team Providers Care Visual Merchandiser Name Role Phone Unavailable Primary Care Provider Unavailabl e Encounter Details Date Type Department Care Team (Late st Contact Info) Description 02/04/2021 Historic Encounter [facility] [address] [place] [address] Provider, [facility] Historical Social History Tobacco Use Types Packs/Day [...] Procedure Name Priority Date/Time Associated Diagnosis Comments FIBRINOGEN Routine 02/04/2021 5:50 AM EST documented in this encounter Results * Fibrinogen (02/04/2021 5:50 AM EST) Fibrinogen Level 339 220 - 440 mg/dL 02/04/2021 11:15 AM EST Blood 02/04/2021 5:50 AM EST 02/04/2021 11:03 AM EST [facility] Historical Provider LAB BLOOD ORDERABLES Fi nal Result [facility] [address] [place] [address], [facility] [phone] documented in this encounter Visit Diagnoses Not on filedocumented in this encounter
--- OUTSIDE RECORDS SUMMARY | 2024-02-15 23:01 | XMS_ITS | Encounter Summary ---
Author Organization [employer] Address [address] [place] [address] Care Team Providers Care Corporate Trainer Name Role Phone Unavailable Primary Care Provider Unavailabl e Encounter Details Date Type Department Care Team (Late st Contact Info) Description 02/04/2021 Historic Encounter [facility] [address] [place] [address] Provider, [facility] Historical Social History Tobacco Use Types Packs/Day [...] Procedure Name Priority Date/Time Associated Diagnosis Comments PROCALCITONIN ([facility] BKR DATA CONV Routine 02/04/2021 5:50 AM EST documented in this encounter Results * (ABNORMAL) PROCALCITONIN ([facility] BKR DATA CONV (02/04/2021 5:50 AM EST) Procalcitonin 4.31(H) 0.00 - 2.00 ng/mL 02/04/2021 2:11 PM EST Blood 02/04/2021 5:50 AM EST 02/04/2021 11:02 AM EST Narrative [facility] - 02/04/2021 2:11 PM EST line draw [facility] Historical Provider LAB BLOOD ORDERABLES Fi nal Result [facility] [address] [phone] documented in this encounter Visit Diagnoses Not on filedocumented in this encounter
--- OUTSIDE RECORDS SUMMARY | 2024-02-15 23:01 | XMS_ITS | Encounter Summary ---
Author Organization [email or web address] Address [address] [place] [address] Care Team Providers Care Research Consultant Name Role Phone Unavailable Primary Care Provider Unavailabl e Encounter Details Date Type Department Care Team (Late st Contact Info) Description 02/05/2021 Transcribed Document [facility] [place] Family [facility] [place] [address] ProviderDick MD [address] [place] [address] Social History Tobacco Use Types Packs/Day [...] Conversion Note - Historical ProviderMD - 02/05/2021 10:08 AM 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 The patient was getting [...] creatinine of 1.9. She was transferred to [facility]. On arrival on 01/29, her Tlow was [...] 01/30. ID was asked by Dr. Praful David on 02/01 to evaluate and manage her [...] On piperacillin tazobactam and doxycycline until 02/06. 02/05/2021 history reviewed. Continues on piperacillin tazobactam and doxycycline until 02/06. Low-grade fever. General weakness. Review of Systems Constitutional: Weakness, No fever, [...] Alert and oriented X4, No confusion, No numbness, No headache. Psychiatric: No anxiety, No depression. All other systems. Health Status Current medications: Medications by Classification Antimicrobials piperacillin-tazobactam + Sodium Chloride 0.9% intravenous s - 2.25 Gram, IV Piggyback, Inj, Q8HInt, infuse over 3 Hour(s), order duration: 7 Day(s), Routine doxycycline + Sodium Chloride 0.9% intravenous solution 100 - 100 mg, IV Piggyback, Inj, [id number], infuse over 2 Hour(s), order duration: 7 Day(s), Routine Immunology predniSONE - 30 mg, Oral, Tab, Daily, order duration: 5 Day(s), Routine Anticoagulant enoxaparin (Lovenox) - 30 mg, SubCutaneous, Inj, [id number] Cardiovascular hydrALAZINE - 50 mg, Oral, Tab, Q8H, Routine isosorbide dinitrate - 10 mg, Oral, Tab, Q8H, Routine carvedilol (Coreg) - 25 mg, Oral, [...] (Chloraseptic Menthol 1.4% topical spray) - 1 [place], Oral, [place], Q2H, PRN for Sore Throat, Routine Vitamins [...] Hypertension, Routine Physical Examination VS/Measurements Vital Measurements 02/05/2021 8:17 EST Oxygen Flow Rate 1 Liter/Min , Vitals Signs (last 24 hrs) Last Charted Minimum Maximum Temp 98.6 (FEB 05 06:20) 98.6 (FEB 05:20) 99.3 (FEB 04:) Apical HR 70 (FEB 05:32) 62 (FEB 05 02:00) 87 (FEB 04 14:54) Mon HR 70 (FEB 05:20) 62 (FEB 04 14:) 71 (FEB 04:26) Resp Rate 18 (FEB 05:20) 16 (FEB 04:) 18 (FEB 05:) SBP H 179 (FEB 05:20) 135 (FEB 05:) H 179 (FEB 05:20) DBP 81 (FEB 05:20) L 58 (FEB 05:) 81 (FEB 04:) MAP 127 (FEB 05:20) 78 (FEB 05:) 136 (FEB 04:) SpO2 100 (FEB 05 08:17) L 93 (FEB 04:) 100 (FEB 04:) General: Moderate distress, Alert, not oriented, appears stated age resting in bed in the ICU. Eye: Extraocular movements are intact, Normal conjunctiva. HENT: Normocephalic, Normal hearing, Oral mucosa is moist. Neck: Supple, Non-tender, No jugular venous distention, No lymphadenopathy, No thyromegaly. Respiratory: Respirations are non-labored, Breath sounds are equal, No chest wall tenderness, Scattered crackle bases. Cardiovascular: No gallop, Normal peripheral perfusion, No edema, tachycardia. Gastrointestinal: Soft, Non-tender, Non-distended, Normal bowel sounds, No organomegaly. Lymphatics: No lymphadenopathy neck, axilla, groin. Musculoskeletal: Normal range of motion, Normal strength, No tenderness, No deformity. Integumentary: Warm, Dry, [place], No rash. Neurologic: Alert, No focal deficits, Not oriented. Cognition and Speech: Speech clear and coherent. Psychiatric: Cooperative, Appropriate mood & affect. Review / Management Results review: Labs (Last four charted values) WBC 9.8 (FEB 05) 9.4 (FEB 04) 7.7 (FEB 03) H 11.6 (FEB 02) HB L 9.7 (FEB 05) L 9.3 (FEB 04) L 8.4 (FEB 03) L 8.7 (FEB 02) HCT L 28.8 (FEB 05) L 28.5 (FEB 04) L 26.1 (FEB 03) L 26.3 (FEB 02) Plt 230 (FEB 05) 231 (FEB 04) 214 (FEB 03) 233 (FEB 02) Na 143 (FEB 05) 146 (FEB 04) 144 (FEB 03) 146 (FEB 02) K 3.9 (FEB 05) 4.7 (FEB 04) 4.1 (FEB 03) 3.8 (FEB 02) Cl H 115 (FEB 05) H 114 (FEB 04) H 118 (FEB 03) H 118 (FEB 02) CO2 22 (FEB 05) 21 (FEB 04) 21 (FEB 03) 21 (FEB 02) BUN H 42 (FEB 05) H 45 (FEB 04) H 43 (FEB 03) H 35 (FEB 02) Cr H 2.00 (FEB 05) H 2.10 (FEB 04) H 2.30 (FEB 03) H 2.20 (FEB 02) Glu R H 109 (FEB 05) 92 (FEB 04) H 143 (FEB 03) H 203 (FEB 02) Ca L 7.9 (FEB 05) L 7.8 (FEB 04) L 7.6 (FEB 03) L 7.6 (FEB 02) Lactic 0.9 (FEB 04) 0.7 (FEB 03) 1.2 (FEB 02) 1.7 (JAN 30) PT H 12.5 (JAN 29) INR 1.2 (JAN 29) PTT 31.8 (JAN 29) AST 21 (FEB 05) 22 (FEB 04) 23 (FEB 03) 28 (FEB 02) ALT 19 (FEB 05) 17 (FEB 04) 14 (FEB 03) 17 (FEB 02) ALK P 40 (FEB 05) 38 (FEB 04) 43 (FEB 03) 53 (FEB 02) T Bili 0.5 (FEB 05) 0.5 (FEB 04) 0.5 (FEB 03) 0.5 (FEB 02) PTN L 5.6 (FEB 05) L 5.4 (FEB 04) L 5.2 (FEB 03) L 5.8 (FEB 02) ALB L 2.3 (FEB 05) L 2.2 (FEB 04) L 2.4 (FEB 03) L 2.6 (FEB 02) Troponin C 0.771 (JAN 29) , ACC: [id number] ORDER: Culture Blood DATE: 01/29/2021 22:39 SOURCE: Blood SITE: Reports Final 02/04/2021 06:01 No growth at 5 days. Pre 02/03/2021 06:01 No growth at 4 days. Pre 02/02/2021 06:02 No growth at 3 days. Pre 02/01/2021 06:02 No growth at 2 days. Pre 01/31/2021 06:01 No growth at 1 day. Pre 01/30/2021 16:01 Culture less than 24 Hrs old == ACC: [id number] ORDER: Culture Blood DATE: 01/29/2021 22:39 SOURCE: Blood SITE: Reports Final 02/04/2021 06:01 No growth at 5 days. Pre 02/03/2021 06:01 No growth at 4 days. Pre 02/02/2021 06:02 No growth at 3 days. Pre 02/01/2021 06:02 No growth at 2 days. Pre 01/31/2021 06:01 No growth at 1 day. Pre 01/30/2021 16:01 Culture less than 24 Hrs old == ACC: [id number] ORDER: Culture MRSA Surveillance DATE: 02/01/2021 09:11 SOURCE: Nasal SITE: Reports Final 02/02/2021 12:55 No MRSA isolated For Infection Control surveillance only. == ACC: [id number] ORDER: Culture Bronch Wash and Stain DATE: 01/30/2021 10:46 SOURCE: Right Lower Lobe SITE: Reports Final 02/01/2021 09:52 No growth Pre 01/31/2021 07:02 No growth GS 01/30/2021 14:00 No organisms seen. Few White Blood Cells == ACC: [id number] ORDER: Culture Sputum and Stain DATE: 01/29/2021 23:26 SOURCE: Tracheal Aspirate SITE: Reports Final 02/01/2021 09:26 Light respiratory georgina isolated No Staph aureus or MRSA isolated. Pre 01/31/2021 06:54 Light respiratory georgina isolated GS 01/30/2021 06:17 <25 Epithelial cells/LPF >25 WBC/LPF Rare Gram Positive Cocci in pairs == ACC: [id number] ORDER: Culture AFB and Stain DATE: 01/30/2021 10:46 SOURCE: Bronchial Alveolar Lavage SITE: Lung R Reports AFB Stain Concentrate 01/31/2021 14:05 No Acid Fast Bacilli seen == ACC: [id number] ORDER: Culture Fungus DATE: 01/30/2021 10:46 SOURCE: Bronchial Alveolar Lavage SITE: Lung R Reports EMMY 01/30/2021 14:00 No Fungal elements seen == . Chest x-ray results Radiology Results (Last 48 hours) [id number] -- 01/29/2021 22:07 CR Chest 1 Vw Portable (02/04/2021 06:55) [...] transcribed report. CR Chest 1 Vw Portable (02/05/2021 08:10) Result: PORTABLE CHEST 02/05/2021 6:00 AM HISTORY: Dyspnea.COMPARISON: February 04, 2021.FINDINGS: The cardiomediastinal silhouette is stable in size . Thelung deleon demonstrate no significant change . There is nopneumothorax . The support devices are stable in position .IMPRESSION: There has been no significant interval change .Images reviewed, interpreted, and dictated by Dr. Austin Contreras.Transcribed by Amanda Whitfield PA-C. Impression and Plan 1. Severe sepsis/cardiogenic shock [...] extubated 01/31/21. On 2 L/min on 02/04. 1 L/min on 02/05. 5. Acute renal failure, ATN/pre-renal azotemia after cardiac arrest. 6. Lactic acidosis, likely from cardiogenic shock, and hypoperfusion. Resolved. 7. Elevated procalcitonin, likely secondary to above. 8. Leukocytosis/neutrophilia, may be steroid induced, was normal value on admission, also related to cardiac arrest. Resolved. 9. Hypothermia, improved. 10. Anemia, acute ?ABL vs chronic disease. 11. Hypocalcemia. Continues. 12. Hypoalbuminemia, mild malnutrition. Ongoing. 13. Type 2 diabetes mellitus, with increased risk for infection. 14. Essential hypertension, dyslipidemia. 15. Hypothyroidism. Making progress on current regimen. Plan: 1. Diagnostically, follow exam, CBC, CMP, ESR, CRP, lactic acid, procalcitonin. Radiographic studies. 2. Therapeutically, continue Zosyn renally dosed, doxycycline. Will need at least 7-10 days of antibiotics until 02/06 and then reassess. 3. Continue O2 support, 40% BiPAP on 02/02, worse. 2 L/min on 02/03, 02/04. 1 L/min on 02/05. Plan has been discussed with patient including side effects of medications and line. At increased risk for side effects of abx and line, readmission, and . documented in this encounter Plan of Treatment Not on file documented as of this encounter Visit Diagnoses Not on filedocumented in this encounter
--- OUTSIDE RECORDS SUMMARY | 2024-02-15 23:01 | XMS_ITS | Encounter Summary ---
Author Organization [employer] Address [address] [place] [address] Care Team Providers Care Sap Bw Architect Name Role Phone Unavailable Primary Care Provider Unavailabl e Encounter Details Date Type Department Care Team (Late st Contact Info) Description 02/04/2021 Historic Encounter [address] [address] ProviderFredrick Historical Social History Tobacco [...] Date/Time Associated Diagnosis Comments GLUCOSE-POC Routine 02/04/2021 8:43 PM EST documented in this encounter Results * (ABNORMAL) Glucose, Point of Care (02/04/2021 8:43 PM EST) Glucose POC2 319(H) 70 - 110 mg/dL 02/05/2021 1:43 AM EST [facility] Global Logistics Manager [id number] 02/05/2021 1:43 AM EST [facility] Device SN [id number] 02/05/2021 1:43 AM EST [facility] Device Comment1 Notified Nurse RBV 02/05/2021 1:43 AM EST [facility] Blood 02/04/2021 8:43 PM EST 02/05/2021 1:45 AM EST [facility] Historical Provider POINT OF CARE TEST JEFFREY MERIDA Final Result [facility] [address] [phone] documented in this encounter Visit Diagnoses Not on filedocumented in this encounter
--- OUTSIDE RECORDS SUMMARY | 2024-02-15 23:01 | XMS_ITS | Encounter Summary ---
Author Organization [employer] [facility] [employer] Address [address] [place] [address] Care Team Providers Care Production Control Specialist Name Role Phone Unavailable Primary Care Provider Unavailabl e Encounter Details Date Type Department Care Team (Late st Contact Info) Description 02/05/2021 Historic Encounter [address] [address] ProviderFredrick Historical Social History Tobacco [...] Associated Diagnosis Comments CMP COMPREHENSIVE METABOLIC PANEL ([facility] DATA CONV) Routine 02/05/2021 7:21 AM EST documented in this encounter Results * (ABNORMAL) CMP COMPREHENSIVE METABOLIC PANEL ([facility] DATA CONV) (02/05/2021 7:21 AM EST) Sodium Level 143 136 - 146 mmol/L 02/05/2021 2:23 PM EST Potassium Level 3.9 3.5 - 5.1 mmol/L 02/05/2021 2:23 PM EST Chloride Level 115(H) 102 - 112 mmol/L 02/05/2021 2:23 PM EST Carbon Dioxide Level 22 21 - 32 mmol/L 02/05/2021 2:23 PM EST Anion Gap 10 9 - 20 02/05/2021 2:23 PM EST Calcium Level 7.9(L) 8.4 - 10.1 mg/dL 02/05/2021 2:23 PM EST Glucose Level 109(H) 74 - 106 mg/dL 02/05/2021 2:23 PM EST Comment: [facility] has become aware of sulfasalazine and sulfapyridine [...] administration of the drug. Blood Urea Nitrogen 42(H) 7 - 22 mg/dL 02/05/2021 2:23 PM EST Creatinine Level 2.00(H) 0.55 - 1.02 mg/dL 02/05/2021 2:23 PM EST Bun/Creatinine 21.0(H) 8.0 - 20.0 02/05/2021 2:23 PM EST Albumin Level 2.3(L) 3.4 - 5.0 Gram/dL 02/05/2021 2:23 PM EST Protein, Total 5.6(L) 6.4 - 8.2 Gram/dL 02/05/2021 2:23 PM EST A/G Ratio 0.7(L) 1.1 - 2.5 02/05/2021 2:23 PM EST Alk Phos 40 27 - 136 Units/Lit er 02/05/2021 2:23 PM EST ALT 19 13 - 56 Units/Lit er 02/05/2021 2:23 PM EST Comment: [facility] has become aware of sulfasalazine and sulfapyridine [...] prior to administration of the drug. AST 21 5 - 37 Units/Lit er 02/05/2021 2:23 PM EST Comment: [facility] has become aware of sulfasalazine and sulfapyridine [...] Bilirubin, Total 0.5 0.2 - 1.2 mg/dL 02/05/2021 2:23 PM EST Comment: Total bilirubin results may be falsely elevated in patients undergoing treatment with eltrombopag (Promacta). Results should be correlated to clinical symptomology and additional laboratory testing including other markers for liver function, e.g., alanine aminotransferase, aspartate aminotransferase, alkaline phosphatase, and/or lactate dehydrogenase. Globulin 3.3 1.5 - 4.5 Gram/dL 02/05/2021 2:23 PM EST eGFR 30(L) >=60 mL/min/1. 73m2 02/05/2021 2:30 PM EST Comment: GFR <60 suggests chronic kidney disease, if found over 3 month period. GFR <15 indicates renal failure. eGFR NonAfrican 24(L) >=60 mL/min/1. 73m2 02/05/2021 2:30 PM EST Comment: GFR <60 suggests chronic kidney disease, if found over 3 month period. GFR <15 indicates renal failure. Blood 02/05/2021 7:21 AM EST 02/05/2021 12:35 PM EST [facility] Historical Provider LAB BLOOD ORDERABLES Fi nal Result [facility] [address] [place], [place] [address] [phone] documented in this encounter Visit Diagnoses Not on filedocumented in this encounter
--- OUTSIDE RECORDS SUMMARY | 2024-02-15 23:01 | XMS_ITS | Encounter Summary ---
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 No complaints of chest pain or SOA. No new cardiac issues. Health Status Allergies: Allergic Reactions (Selected) No Known Allergies Current medications: (Selected) Inpatient Medications Ordered Chloraseptic Menthol 1.4% topical spray: 1 [place], Oral, Q2H, PRN: Sore Throat Core mg, [...] Oral, At Bedtime Lovenox: 30 mg, SubCutaneous, [id number] MiraLax: 17 Gram, Oral, Daily, PRN: Constipation [...] mL: 100 mg, 50 mL/Hr, IV Piggyback, L71KGpi glucagon: 1 mg, IntraMuscular, Q15Min, PRN: Other (See Comment) glucose 4 g oral tablet, chewable: 16 Gram, 4 Tab, Chew, Q15Min, PRN: Other (See Comment) glucose 40% oral gel: 15 Gram, 37.5 mL, Oral, Q15Min, PRN: Other (See Comment) hydrALAZINE: 10 mg, IV Push, Q3H, PRN: Hypertension hydrALAZINE: 25 mg, Oral, Q8H hydrOXYzine hydrochloride: 10 mg, Oral, Q6H, PRN: Anxiety insulin lispro sliding scale: Scale C:, SubCutaneous, AC and at Bedtime isosorbide dinitrate: 10 mg, Oral, Q8H labetalol: 10 mg, IV Push, Q1H, PRN: Hypertension lactobacillus acidophilus: 1 Cap, Oral, BID levothyroxine: 100 mcg, Oral, Daily methylPREDNISolone sodium succinate: 40 mg, IV Push, Daily, Home Medications (9) Active amLODIPine 2.5 mg [...] 1 Tab, Oral, At Bedtime , Medications (33) Active Scheduled: (17) #NaCl 0.9% *FLUSH* inj 10 mL 10 [...] 0.9% 100 mL 100 mg, IV Piggyback, [id number] enoxaparin 30 mg/0.3 ml inj 30 mg 0.3 mL, SubCutaneous, [id number] famotidine 20 mg tab 20 mg 1 Tab, Oral, Daily hydrALAZINE 25 mg tab 25 mg 1 Tab, Oral, Q8H insulin lispro 1 unit/0.01 mL inj Scale C:, SubCutaneous, AC and at Bedtime isosorbide dinitrate 10 mg tab 10 mg 1 Tab, Oral, Q8H lactobacillus acidophilus cap 1 Cap, Oral, BID levothyroxine 100 mcg tab 100 mcg 1 Tab, Oral, Daily methylPREDNISolone SUCCinate 40 mg/1 mL inj PF 40 mg 1 mL, IV Push, Daily piperacillin-tazobactam + NaCl 0.9% 50 mL [...] Push, Q4H phenol 1.4% throat spray 1 [place], Oral, Q2H polyethylene glycol 3350 pwd 17 g pkt 17 Gram 1 Packet, Oral, Daily Problem list: Active Problems (2) At risk for sleep apnea Hypertension Objective Intake and Output 24 hour intake: Total 980 ml 24 hour output: Total 1,000 ml VS/Measurements Vitals Signs (last 24 hrs) Last Charted Minimum Maximum Temp 98.5 (FEB 05 02:00) 98.5 (FEB 05 02:00) 99.3 (FEB 04 14:31) Apical HR 62 (FEB 05 02:00) 62 (FEB 05 02:00) 87 (FEB 04 14:54) Mon HR 62 (FEB 05 02:00) 62 (FEB 04 14:31) 71 (FEB 04 21:26) Resp Rate 18 (FEB 05 02:00) 16 (FEB 04 10:26) 18 (DEC 01 02:00) SBP 135 (FEB 05:) 135 (FEB 05:) H 173 (FEB 04 21:26) DBP L 58 (FEB 05:) L 58 (FEB 05:) H 118 (FEB 04 10:07) MAP 78 (FEB 05 02:) 78 (FEB 05:) 136 (FEB 04 14:31) SpO2 100 (FEB 05:) L 93 (FEB 04 10:26) 100 (FEB 04 07:56) General: Alert and oriented, No acute distress. [...] Cooperative, Appropriate mood & affect. Results Review No qualifying data available Radiology Results (Last 48 hours) [id number] -- 01/29/2021 22:07 CR Chest 1 Vw [...] PEA cardiopulmonary arrest during stress test at [facility] 01/29/21 ROSC unknown (brief per report) Pressor support Initial rhythm atrial fibrillation post cardiopulmonary arrest, now SR. Amio drip Heart failure with reduced EF/systolic dysfunction EF calculated at 38%, unclear etiology Uncontrolled hypertension Acute hypoxic respiratory failure secondary underlying pneumonia plus minus HF Ventilation support - extubated 02/01/21 Bilateral infiltrates TAYLOR PLAN: 02/05/2021 Uptitrate hydralazine and isosorbide for better blood pressure control and part of guideline directed heart failure therapy. No REJI inhibitor or ARB in the setting of her TAYLOR. Will hold off cardiac catheterization since she is completely recovering from her kidney injury. May have to perform as outpatient, or inpatient if her kidney functions returned to baseline prior to discharge. Appreciate nephrology's recommendations and guidance on this matter. 02/04/2021 We will add Hydralazine 25mg Q8 and Isosorbide Dinitrate 10mg Q8 with holding parameters for better BP control and for GDT of heart failure. Continue other current cardiac medications. Eventual Ischemic evaluation with [facility] once renal function recovers. 02/03/2021 Blood [...]
--- OUTSIDE RECORDS SUMMARY | 2024-02-15 23:01 | XMS_ITS | Encounter Summary ---
Author Organization [email or web address] Address [address] [place] [address] Care Team Providers Care Manufacturing Maintenance Mechanic Name Role Phone Unavailable Primary Care Provider Unavailabl e Encounter Details Date Type Department Care Team (Late st Contact Info) Description 02/04/2021 Historic Encounter [facility] [address] [place] [address] Provider, [facility] [...] Procedure Name Priority Date/Time Associated Diagnosis Comments PHOSPHORUS Routine 02/04/2021 5:50 AM EST documented in this encounter Results * PHOSPHORUS (02/04/2021 5:50 AM EST) Phosphorus 2.5 2.5 - 4.9 mg/dL 02/04/2021 11:58 AM EST Blood 02/04/2021 5:50 AM EST 02/04/2021 11:02 AM EST [facility] Historical Provider MICROBIOLOGY - GENERAL ORDERABLES Final Result [facility] [address] [phone] documented in this encounter Visit Diagnoses Not on filedocumented in this encounter
--- OUTSIDE RECORDS SUMMARY | 2024-02-15 23:01 | XMS_ITS | Encounter Summary ---
Author Organization [employer] Address [address] [place] [address] Care Team Providers Care Pipe Stripper Name Role Phone Unavailable Primary Care Provider Unavailabl e Encounter Details Date Type Department Care Team (Late st Contact Info) Description 02/05/2021 Transcribed Document [facility] [place] [facility] [place] [address] ProviderDick MD [address] [place] [address] Social History Tobacco Use Types [...] Conversion Note - Historical ProviderMD - 02/05/2021 11:27 AM PANEL GLUER Final Discharge Planning Entered On: 02/05/2021 11:29 EST Performed On: 02/05/2021 11:27 EST by Wong Teague, RADIOGRAPHER TECHNOLOGIST NON-EXEMPT Final Discharge Planning Discharge Arrangements : Patient Post-Acute Information Patient Name: CISCO CAZARES Gender: Female : [birth year] Age: 75 Years [place] Referral(s): Service: Organization: Business Address: Phone Number: Acute Rehab [facility] [address] [place], [address] Patient Offered Choice/Affiliations Explained : Yes Designation of Choice Signed : Yes Important Medicare Message Reviewed With : Patient Important Medicare Message Reviewed D/T : 02/05/2021 11:20 EST Transportation Needs : Wheelchair van Discharge Transportation Arrangement Cmt : [facility] wheelchair van at 1430 Follow Up Appointment Scheduled : Yes Is Patient High/Moderate Readmission Risk? : Yes Moderate Readmission Risk - SNF : Notify liaison that patient is moderate risk for readmission, request patient be assessed 1-3 days after D/C and frequent evaluations occur next 1-2 weeks Patient/Family Notified of Plan : Yes Support Person/Pt Rep Notified of Plan : Yes Patient/Family Notified : Yes Is Patient Ready for Discharge? : Yes Physician Notified Patient is Ready for Discharge? : Yes Discharge To Care Management : [facility] -Inpatient [facility] Wong Teague RADIOGRAPHER TECHNOLOGIST NON-EXEMPT - 02/05/2021 11:27 EST Final Narrative Note Final Narrative Note : Day 7 of 5 ELOS Moderate readmission risk DC order DC to [facility] for acute rehab [facility] wheelchair van at 1430 Admitted to MED Unit DC Summary will be sent Pt, family, & RN updated has cleared for DC Wong Teague RADIOGRAPHER TECHNOLOGIST NON-EXEMPT - 02/05/2021 11:27 EST documented in this encounter Plan of Treatment Not on file documented as of this encounter Visit Diagnoses Not on filedocumented in this encounter
--- OUTSIDE RECORDS SUMMARY | 2024-02-15 23:01 | XMS_ITS | Encounter Summary ---
Author Organization [employer] Address [address] [place] [address] Care Team Providers Care Panel Assembler Name Role Phone Unavailable Primary Care Provider Unavailabl e Encounter Details Date Type Department Care Team (Late st Contact Info) Description 02/05/2021 Transcribed Document [facility] [place] Family Medicine [facility] [place] [address] ProviderDick MD [facility] [place] [address] Social History Tobacco Use Types [...] Conversion Note - Historical ProviderMD - 02/05/2021 2:00 AM PROPAGATION MANAGER Assistant Director Of Financial Aid Details Entered On: 02/05/2021 4:48 EST Performed On: 02/05/2021 2:00 EST by Diana Marcelino NON EMP RN - INTERNATIONAL Order Details Transport Mode Order Detail : Stretcher/Gurney Isolation Precautions Order Detail : Standard Precautions Order Detail : N/A IV Order Detail : 1 Oxygen Order Detail : 1 Nurse Collect Order Detail : 0 Lift/Transfer : Moderate assist Central Line Order Detail : Yes Room Service : Not Appropriate Arterial Line : No Patient Needs Meds Crushed/Liquid : No Diana Marcelino NON EMP RN - INTERNATIONAL - 02/05/2021 4:48 EST documented in this encounter Plan of Treatment Not on file documented as of this encounter Visit Diagnoses Not on filedocumented in this encounter
--- OUTSIDE RECORDS SUMMARY | 2024-02-15 23:01 | XMS_ITS | Encounter Summary ---
Author Organization [employer] Address [address] [place] [address] Care Team Providers Care Machine Cementer And Folder Name Role Phone Unavailable Primary Care Provider Unavailabl e Encounter Details Date Type Department Care Team (Late st Contact Info) Description 02/04/2021 Historic Encounter [address] [address] ProviderFredrick Historical Social History Tobacco [...] Associated Diagnosis Comments CBC W/ AUTO DIFF ([facility] DATA CONV) Routine 02/04/2021 5:50 AM EST documented in this encounter Results * (ABNORMAL) CBC W/ AUTO DIFF ([facility] DATA CONV) (02/04/2021 5:50 AM EST) WBC 9.4 4.5 - 10.5 K/uL 02/04/2021 11:08 AM EST RBC 3.04(L) 3.93 - 5.22 Million/uL 02/04/2021 11:08 AM EST Hgb 9.3(L) 11.2 - 15.7 g/dL 02/04/2021 11:08 AM EST Hct 28.5(L) 34.1 - 44.9 % 02/04/2021 11:08 AM EST MCV 93.8 79.0 - 94.8 fL 02/04/2021 11:08 AM EST MCH 30.6 25.6 - 32.2 pg 02/04/2021 11:08 AM EST MCHC 32.6 32.2 - 36.5 Gram/dL 02/04/2021 11:08 AM EST RDW 16.4(H) 11.7 - 14.9 % 02/04/2021 11:08 AM EST Platelet Count 231 163 - 369 K/uL 02/04/2021 11:08 AM EST MPV 10.8 9.4 - 12.4 fL 02/04/2021 11:08 AM EST Slide Review No 02/04/2021 11:09 AM EST Blood 02/04/2021 5:50 AM EST 02/04/2021 11:03 AM EST [facility] Historical Provider LAB BLOOD ORDERABLES Fi nal Result [facility] [address] [phone] documented in this encounter Visit Diagnoses Not on filedocumented in this encounter
--- OUTSIDE RECORDS SUMMARY | 2024-02-15 23:01 | XMS_ITS | Encounter Summary ---
Author Organization [employer] Address [address] [place] [address] Care Team Providers Care Porter Sample Case Name Role Phone Unavailable Primary Care Provider Unavailabl e Encounter Details Date Type Department Care Team (Late st Contact Info) Description 02/04/2021 Transcribed Document [facility] [place] [facility] [place] [address] ProviderDick MD [address] [place] [id number] Social History Tobacco Use Types Packs/Day Years [...] Conversion Note - Historical ProviderMD - 02/04/2021 10:18 AM ASTRONAUT MISSION SPECIALIST DATE OF DISCHARGE: DISCHARGING DIAGNOSES: 1. Acute respiratory failure, status post intubation/extubation. 2. Status post pulseless electrical activity arrest. 3. Sepsis/septic shock. 4. Acute renal failure. 5. Altered mental status/acute encephalopathy. 6. Diabetes mellitus type 2. 7. Morbid obesity. 8. Weakness. DISCHARGE INSTRUCTIONS: Diet, according to [employer] [employer]. Activities, as per physical therapy recommendation. Followup appointment with primary care physician in 3 to 4 days. Followup appointment with Pulmonary in 1 to 2 weeks. Followup appointment with Cardiology in 1 to 2 weeks. DISPOSITION: [facility] facility. HISTORY AND HOSPITAL COURSE: This is a 75-year-old female, admitted to the hospital with respiratory failure and cardiac arrest. 1. Acute respiratory failure. The patient was intubated, admitted to intensive care unit, seen by Pulmonary. The patient improving, extubated. The patient is on nasal cannula, improving. 2. Status post PEA arrest. The patient was in ICU, started on Cardene drip for hypertension, improving. Cardiology was following. Medication adjusted as per Cardiology. 3. Sepsis/septic shock. The patient is on IV Zosyn now, seen by Infectious Disease. 4. Weakness. Start physical therapy. Recommend the patient to go to rehab. 5. Diabetes mellitus, on sliding scale. 6. Hypertension. Medication adjusted as mentioned. 7. Obesity. Recommend diet and exercise. The patient is medically stable, work with the physical therapy. bakery and deli sales manager is working on discharge plan. Disposition, rehab soon. Plan discussed with the patient. Chart was reviewed. Time spent, 45 minutes. /[id number] MD YOUSIF Guerra/SUMEET / YOUSIF / MARIA ALEJANDRAL /[id number] Electronically signed by Parivz [facility] Conversion Oral And Maxillofacial Pathologist Cerner at 06/22/2022 7:31 PM CDT documented in this encounter Plan of Treatment Not on file documented as of this encounter Visit Diagnoses Not on filedocumented in this encounter
--- OUTSIDE RECORDS SUMMARY | 2024-02-15 23:01 | XMS_ITS | Encounter Summary ---
Author Organization [employer] Address [address] [place] [address] Care Team Providers Care Upholstery Technician Name Role Phone Unavailable Primary Care Provider Unavailabl e Encounter Details Date Type Department Care Team (Late st Contact Info) Description 02/04/2021 Historic Encounter [address] [address] Provider, [facility] Historical Social History Tobacco Use Types [...] Date/Time Associated Diagnosis Comments GLUCOSE-POC Routine 02/04/2021 10:13 AM EST documented in this encounter Results * Glucose, Point of Care (02/04/2021 10:13 AM EST) Glucose POC2 99 70 - 110 mg/dL 02/04/2021 3:13 PM EST [facility] Bladder Tier [id number] 02/04/2021 3:13 PM EST [facility] Device SN [id number] 02/04/2021 3:13 PM EST [facility] Device Comment1 Notified Nurse RBV 02/04/2021 3:13 PM EST [facility] Blood 02/04/2021 10:1 3 AM EST 02/04/2021 3:16 PM EST [facility] Historical Provider POINT OF CARE TEST ORDE RABLES Final Result [facility] [address] [phone] documented in this encounter Visit Diagnoses Not on filedocumented in this encounter
--- OUTSIDE RECORDS SUMMARY | 2024-02-15 23:01 | XMS_ITS | Encounter Summary ---
Author Organization [employer] Address [address] [place] [address] Care Team Providers Care Plush Dresser Name Role Phone Unavailable Primary Care Provider Unavailabl e Encounter Details Date Type Department Care Team (Late st Contact Info) Description 02/04/2021 Historic Encounter [facility] [address] [place] [address] Provider, [facility] Historical Social History Tobacco Use Types [...] Priority Date/Time Associated Diagnosis Comments MAGNESIUM LEVEL ([facility] DATA CONV) Routine 02/04/2021 5:50 AM EST documented in this encounter Results * MAGNESIUM LEVEL ([facility] DATA CONV) (02/04/2021 5:50 AM EST) Magnesium Level 2.2 1.5 - 2.4 mg/dL 02/04/2021 11:46 AM EST Blood 02/04/2021 5:50 AM EST 02/04/2021 11:02 AM EST [facility] Historical Provider LAB BLOOD ORDERABLES Fi nal Result [facility] [address] [place], [place] [address] [phone] documented in this encounter Visit Diagnoses Not on filedocumented in this encounter
--- OUTSIDE RECORDS SUMMARY | 2024-02-15 23:01 | XMS_ITS | Encounter Summary ---
Author Organization [employer] Address [address] [place] [address] Care Team Providers Care Sharepoint Admin Name Role Phone Unavailable Primary Care Provider Unavailabl e Encounter Details Date Type Department Care Team (Late st Contact Info) Description 02/05/2021 Transcribed Document [facility] [place] [facility] [address] ProviderDick [place] [address] Social History Tobacco Use Types [...] Conversion Note - Historical ProviderMD - 02/05/2021 9:00 AM HEAD CHARRER Patient: CISCO CAZARES Age: 75 years Sex: Female : 1945 Associated Diagnoses: None Author: MINGO CORONA MD-NEP Subjective Patient is sitting up in bed, eating her breakfast, improving appetite, denies shortness of air and having good urine output according to her. Health Status Allergies: Allergic Reactions (Selected) No Known Allergies, Allergies (1) Active Reaction No Known Allergies None Documented Current medications: (Selected) Inpatient Medications Ordered Chloraseptic Menthol 1.4% topical spray: 1 [place], Oral, Q2H, PRN: Sore Throat Core mg, [...] Oral, At Bedtime Lovenox: 30 mg, SubCutaneous, [id number] MiraLax: 17 Gram, Oral, Daily, PRN: Constipation [...] mL: 100 mg, 50 mL/Hr, IV Piggyback, [id number] glucagon: 1 mg, IntraMuscular, Q15Min, PRN: Other [...] Bedtime, 0 Refill(s) Lovenox: 30 mg, SubCutaneous, [id number], 0 Refill(s) Pepcid 20 mg oral tablet: [...] Lovenox 30 mg = 0.3 mL, SubCutaneous, [id number] Pepcid 20 mg oral tablet 20 mg = 1 Tab, Oral, Daily predniSONE 10 mg oral tablet 30 mg = 3 Tab, Oral, Daily , Medications (33) Active Scheduled: (17) #NaCl [...] 0.9% 100 mL 100 mg, IV Piggyback, [id number] enoxaparin 30 mg/0.3 ml inj 30 mg 0.3 mL, SubCutaneous, [id number] famotidine 20 mg tab 20 mg 1 [...] Push, Q4H phenol 1.4% throat spray 1 [place], Oral, Q2H polyethylene glycol 3350 pwd 17 g pkt 17 Gram 1 Packet, Oral, Daily Problem list: Medical At risk for sleep apnea / IMO [id number] / Confirmed Hypertension / SNOMED CT 18534352 / Confirmed, Active Problems (2) At risk for sleep apnea Hypertension Objective Intake and Output 24 hour intake VS/Measurements Vitals Signs (last 24 hrs) Last [...] H 179 (FEB 05 06:20) 135 (FEB 05:) H 179 (FEB 05 06:20) DBP 81 (FEB 05 06:20) L 58 (FEB 05:) H 118 (FEB 04 10:07) MAP 127 (FEB 05 06:20) 78 (FEB 05:) 136 (FEB 04 14:31) SpO2 100 (FEB 05 08:17) L 93 (FEB 04 10:26) 100 (FEB 04 14:31) General: Alert and oriented, No acute distress, Morbidly obese. Eye: Normal conjunctiva. HENT: Normocephalic, Normal hearing. Neck: Supple, Non-tender, No jugular venous distention, No lymphadenopathy, No thyromegaly. Respiratory: Lungs are clear to auscultation, Respirations are non-labored, Breath sounds are equal, Symmetrical chest wall expansion. Cardiovascular: No murmur, No gallop. Gastrointestinal: Soft, Non-distended, Normal bowel sounds, No organomegaly. Integumentary: Intact, No rash. Neurologic: Alert, Oriented. Psychiatric: Cooperative, Appropriate mood & affect, Normal judgment, Non-suicidal. Results Review Intake & Output Totals Last 24 Hours (7a-7a) Intake (23 Events) Medications (361.03 mL) Oral Intake (620 mL) Output (4 Events) Urine Voided (Volume) (1400 mL) Input Total: 981.03 mL Output Total: 1400 mL Balance: -418.97 mL Labs (Last four charted values) WBC 9.8 [...] 214 (FEB 03) 233 (FEB 02) Na 146 (FEB 04) 144 (FEB 03) 146 (FEB 02) 141 (FEB 01) K 4.7 (FEB 04) 4.1 (FEB 03) 3.8 (FEB 02) 3.7 (FEB 02) Cl H 114 (FEB 04) H 118 (FEB 03) H 118 (FEB 02) 112 (FEB 01) CO2 21 (FEB 04) 21 (FEB 03) 21 (FEB 02) 23 (FEB 01) BUN H 45 (FEB 04) H 43 (FEB 03) H 35 (FEB 02) H 32 (FEB 01) Cr H 2.10 (FEB 04) H 2.30 (FEB 03) H 2.20 (FEB 02) H 2.30 (FEB 01) Glu R 92 (FEB 04) H 143 (FEB 03) H 203 (FEB 02) H 177 (FEB 01) Ca L 7.8 (FEB 04) L 7.6 (FEB 03) L 7.6 (FEB 02) L 7.9 (FEB 01) Lactic 0.9 (FEB 04) 0.7 (FEB 03) 1.2 (FEB 02) 1.7 (JAN 30) PT H 12.5 (JAN 29) INR 1.2 (JAN 29) PTT 31.8 (JAN 29) AST 22 (FEB 04) 23 (FEB 03) 28 (FEB 02) 28 (FEB 01) ALT 17 (FEB 04) 14 (FEB 03) 17 (FEB 02) 13 (FEB 01) ALK P 38 (FEB 04) 43 (FEB 03) 53 (FEB 02) 50 (FEB 01) T Bili 0.5 (FEB 04) 0.5 (FEB 03) 0.5 (FEB 02) 0.5 (FEB 01) PTN L 5.4 (FEB 04) L 5.2 (FEB 03) L 5.8 (FEB 02) L 5.5 (FEB 01) ALB L 2.2 (FEB 04) L 2.4 (FEB 03) L 2.6 (FEB 02) L 2.4 (FEB 01) Troponin C 0.771 (JAN 29) Impression and Plan Assessment and plan: Acute kidney injury, improved-probable chronic kidney disease stage III Diabetes mellitus with diabetic nephropathy Hypertension Hyperkalemia-resolved Cardiac arrest, improved Acute kidney injury on chronic kidney disease stage III: Her clearance continues to improve. She is globally improving also. I suspect she has chronic kidney disease related to diabetes, hypertension. She reports that she lives in [place] and she can do outpatient nephrology clinic follow-up in [facility]. She reports good progress with physical therapy. -Recommend avoiding REJI inhibitor until her kidney function stabilizes especially with her history of hyperkalemia. -I've asked the nursing staff to coordinate outpatient nephrology follow-up with [facility] nephrology in [facility]. Or she can follow-up with Dr. Huang in [place]. From the renal point of view the patient can be discharged at any time. documented in this encounter Plan of Treatment Not on file documented as of this encounter Visit Diagnoses Not on filedocumented in this encounter
--- OUTSIDE RECORDS SUMMARY | 2024-02-15 23:01 | XMS_ITS | Encounter Summary ---
Author Organization [employer] Address [address] [place] [address] Care Team Providers Care Small Business Sales Representative Name Role Phone Unavailable Primary Care Provider Unavailabl e Encounter Details Date Type Department Care Team (Late st Contact Info) Description 02/05/2021 Transcribed Document [facility] [place] [facility] [place] [address] ProviderDick MD [address] [place] [address] Social History Tobacco Use Types Packs/Day [...] Conversion Note - Historical ProviderMD - 02/05/2021 3:03 PM DROP WIRE OPERATOR Nursing Discharge Summary Entered On: 02/05/2021 15:04 EST Performed On: 02/05/2021 15:03 EST by Donna Boswell RN Discharge Documentation Discharge Date/Time : 02/05/2021 14:15 EST Transporter Signature : Flaca Lin Patient Track Supervisor Lorenza Patient Disposition, General : Discharge Discharge To : Rehabilitation unit/facility Name of Receiving Facility[facility]Provider : [facility] Mode Of Departure, General Discharge : Other: [facility] [place] IV Discontinued : Yes Personal Belongings With Patient : Yes Pt's Own Supply of Medications Returned : No patient supply of medications to return Prescriptions Given to Patient : No Medications Given to Patient : No Discharge Instructions Reviewed With, Opportunity For Questions Given : Patient, Daughter Patient Education Completed : Yes Teaching Method : Explanation, Printed materials Teaching Evaluation : Verbalizes understanding Nurse Report w/Opportunity for Questions : Called Discharge, Comment : hand-off report called to Tevin at [facility] Donna Boswell RN - 02/05/2021 15:03 EST Electronically signed by Parviz, [facility] Conversion Dispatcher Chief Coal Slurry Cerner at 06/22/2022 7:38 PM CDT documented in this encounter Plan of Treatment Not on file documented as of this encounter Visit Diagnoses Not on filedocumented in this encounter
--- OUTSIDE RECORDS SUMMARY | 2024-02-15 23:01 | XMS_ITS | Encounter Summary ---
Author Organization [employer] Address [address] [place] [address] Care Team Providers Care Bank Operations Officer Name Role Phone Unavailable Primary Care Provider Unavailabl e Encounter Details Date Type Department Care Team (Late st Contact Info) Description 02/05/2021 Transcribed Document [facility] [place] [facility] [place] [address] ProviderDick MD [facility] [place] [address] Social History Tobacco Use Types [...] Conversion Note - Historical ProviderMD - 02/05/2021 10:24 AM CHIEF SOLUTION ARCHITECT Patient: CAROL CAZARES Age: 75 Years Sex: Female : 1945 Admit Date 01/29/2021 22:07 Discharge Date No Discharge Date on Record Primary Care Provider KULDEEP YOON MD Discharge Diagnosis Weakness 02/05/2021 R53.1 ICD-10-CM 1. Acute respiratory failure, status post intubation/extubation. 2. Status post pulseless electrical activity arrest. 3. Sepsis/septic shock. 4. Acute renal failure. 5. Altered mental status/acute encephalopathy. 6. Diabetes mellitus type 2. 7. Morbid obesity. 8. Weakness. Hospital Course needs to have Heart cath as outpatient as Per Cardiology This is a 75-year-old female, admitted to [...] medically stable, work with the physical therapy. 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 Disposition, rehab soon. Vital Signs T: 37 ??C TMIN: 36.9 ??C TMAX: 37.4 ??C HR: 70 HR: 70 RR: 18 BP: 179/81 SpO2: 100% Oxygen Settings (Last) Oxygen Therapy Mode: Nasal cannula (02/05/21 08:17:00) Oxygen Flow Rate: 1 Liter/Min (02/05/21 08:17:00) Discharge Disposition [facility] unit/facility Discharge Follow Up Follow up with primary care provider - Within 2 to 3 days Follow up with specialist - Within 1 to 2 weeks Follow up with specialist - Within 2 to 5 weeks Follow up with specialist - Within 1 to 2 weeks Discharge Medications (17) Active amLODIPine 10 mg oral tablet 10 mg = 1 Tab, Oral, Daily clonidine 0.3 mg oral tablet 0.3 mg = 1 Tab, Oral, BID Coreg 25 mg oral tablet 25 mg = 1 Tab, Oral, BID doxycycline 100 mg injection 100 mg, IntraVENous, BID through 02/06/21, then reassess per ID DuoNeb 0.5 mg-2.5 mg/3 mL inhalation solution 3 mL, PRN, Nebulized Inhalation, RT_Daily furosemide 40 mg oral tablet 40 mg = 1 Tab, PRN, Oral, Daily hydrALAZINE 50 mg oral tablet 50 mg = 1 Tab, Oral, Q8H hydrOXYzine hydrochloride 10 mg oral tablet 10 mg = 1 Tab, PRN, Oral, Q6H insulin lispro 100 units/mL injectable solution Scale C:, SubCutaneous, AC and at Bedtime isosorbide dinitrate 10 mg oral tablet 10 mg = 1 Tab, Oral, Q8H lactobacillus acidophilus oral capsule 1 Cap, Oral, BID levothyroxine 100 mcg (0.1 mg) oral tablet 100 mcg = 1 Tab, Oral, Daily Lipitor 40 mg oral tablet 40 mg = 1 Tab, Oral, At Bedtime Lovenox 30 mg = 0.3 mL, SubCutaneous, [id number] Pepcid 20 mg oral tablet 20 mg = 1 Tab, Oral, Daily predniSONE 10 mg oral tablet 30 mg = 3 Tab, Oral, Daily x 5 days Zosyn 2 g-0.25 g intravenous injection 2.25 Gram, IntraVENous, Q8H through 02/06/21, then reassess per ID Code Status Start: 01/29/21 22:39:00 EST, Full Code, Continuous Order Condition on Discharge stable Consulting Physicians MODESTO LUI MD - cardiac arrest with resp fail on vent LUIS THURMAN MD-CAR - Post cardiac arrest MENDEZ ATKINS MD-SHANE BIANKA AG MD [facility], MD MINGO-NEP - Worsening TAYLOR in septic shock LUIS LEIVA MD-INF (Infectious Disease) - sepsis LEW ROJAS MD-NEP WINSTON NUÑEZ MD-INF NARENDRA JACOBSON MD EDRISS, [place], MD Current Diet Order Diet, Adult - Ordered -- Start: 02/04/21 15:02:00 EST, Food Consistency: Mechanical soft, Cardiac Diet, 60 gm carbs:[id number] [place] Pending Labs In Process CYTOLOGY REPORT [id number], [id number], RT - Routine, 01/30/21 10:46:00 EST Pathology Non-Family Service Caseworker Request (Cytology Non-Family Service Caseworker Request) [id number], [id number], 01/30/21 10:46:00 EST, Collected, RT - Routine, 01/31/21 8:33:12 EST, TREVOR GRAVES Histmonicach, Specimen Type: AP Specimen, Specimen Desc: RLLbronchial lavage Viral Culture, Reflexive, Sendout Specimen Type: Bronchial Alveolar Lavage, Stat collect, 01/30/21 10:46:00 EST, 1-Time, Stop: 01/30/21 10:46:00 EST, Nurse Collect, Instructions: RLL resp failure, Specimen Source: RLL, Print Label By Order Location, Comments: [facility]o sang Scheduled Magnesium Level Specimen Type: Blood, AM Draw collect, 02/06/21 4:00:00 EST, 1-Time, Stop: 02/06/21 4:00:00 EST, Lab Collect CBC no Diff (Hemogram) Specimen Type: Blood, AM Draw collect, 02/06/21 4:00:00 EST, 1-Time, Stop: 02/06/21 4:00:00 EST, Lab Collect Calcium Ionized Specimen Type: Blood, AM Draw collect, 02/06/21 4:00:00 EST, 1-Time, Stop: 02/06/21 4:00:00 EST, Lab Collect BMP Basic Metabolic Panel Specimen Type: Blood, AM Draw collect, 02/06/21 4:00:00 EST, 1-Time, Stop: 02/06/21 4:00:00 EST, Lab Collect Stain Culture AFB and Stain Specimen Type: Bronchial Alveolar Lavage, From: Lung R, Stat collect, 01/30/21 10:46:00 EST, 1-Time, Stop: 01/30/21 10:46:00 EST, Nurse Collect, Specimen Desc: cloudy Culture Fungus Specimen Type: Bronchial Alveolar Lavage, From: Lung R, Stat collect, 01/30/21 10:46:00 EST, 1-Time, Stop: 01/30/21 10:46:00 EST, Nurse Collect, Specimen Desc: BAL RLL Time Spent on Discharge 40 min documented in this encounter Plan of Treatment Not on file documented as of this encounter Visit Diagnoses Not on filedocumented in this encounter
--- OUTSIDE RECORDS SUMMARY | 2024-02-15 23:01 | XMS_ITS | Encounter Summary ---
Author Organization [employer] Address [address] [place] [address] Care Team Providers Care Programs Director Name Role Phone Unavailable Primary Care Provider Unavailabl e Encounter Details Date Type Department Care Team (Late st Contact Info) Description 02/04/2021 Transcribed Document [facility] [place] [address] [place] [address] ProviderDick MD [address] [place] [address] Social History Tobacco Use Types [...] Conversion Note - Historical ProviderMD - 02/04/2021 2:21 PM TRAFFIC SIGN ERECTION SUPERVISOR Meds to Bed Enrollment Entered On: 02/04/2021 14:21 EST Performed On: 02/04/2021 14:21 EST by Louise Smith, PHARMACIST-SPECIALIST CLINICAL Meds to Bed Enrollment Patient Enrollment Decision: : Yes/enroll in meds to bed program Louise Smith PHARMACIST-SPECIALIST CLINICAL - 02/04/2021 14:21 EST documented in this encounter Plan of Treatment Not on file documented as of this encounter Visit Diagnoses Not on filedocumented in this encounter
--- OUTSIDE RECORDS SUMMARY | 2024-02-15 23:01 | XMS_ITS | Encounter Summary ---
Author Organization [employer] Address [address] [place] [address] Care Team Providers Care Personal Financial Planner Name Role Phone Unavailable Primary Care Provider Unavailabl e Encounter Details Date Type Department Care Team (Late st Contact Info) Description 02/04/2021 Historic Encounter [facility] [address] [place] [address] Provider, [facility] Historical Social History Tobacco Use Types Packs/Day [...] Procedure Name Priority Date/Time Associated Diagnosis Comments LDH Routine 02/04/2021 5:50 AM EST documented in this encounter Results * (ABNORMAL) LDH (02/04/2021 5:50 AM EST) Lactate Dehydrogenase 264(H) 84 - 246 Units/Lite r 02/04/2021 11:58 AM EST Blood 02/04/2021 5:50 AM EST 02/04/2021 11:02 AM EST [facility] Historical Provider PATHOLOGY/CYTOLOGY ORDE MAGNOLIA Final Result [facility] [address] [phone] documented in this encounter Visit Diagnoses Not on filedocumented in this encounter
--- OUTSIDE RECORDS SUMMARY | 2024-02-15 23:01 | XMS_ITS | Encounter Summary ---
Author Organization [employer] Address [address] [place] [address] Care Team Providers Care Drywall Foreman Name Role Phone Unavailable Primary Care Provider Unavailabl e Encounter Details Date Type Department Care Team (Late st Contact Info) Description 02/04/2021 Historic Encounter [address] [address] Provider, [facility] Historical Social History Tobacco Use Types [...] Date/Time Associated Diagnosis Comments GLUCOSE-POC Routine 02/04/2021 5:17 AM EST documented in this encounter Results * Glucose, Point of Care (02/04/2021 5:17 AM EST) Glucose POC2 87 70 - 110 mg/dL 02/04/2021 10:17 AM EST [facility] Software Engineer [id number] 02/04/2021 10:17 AM EST [facility] Device SN [id number] 02/04/2021 10:17 AM EST [facility] Device Comment1 Notified Nurse RBV 02/04/2021 10:17 AM EST [facility] Blood 02/04/2021 5:17 AM EST 02/04/2021 10:18 AM EST [facility] Historical Provider POINT OF CARE TEST ORDE RABLES Final Result [facility] [address] [phone] documented in this encounter Visit Diagnoses Not on filedocumented in this encounter
--- OUTSIDE RECORDS SUMMARY | 2024-02-15 23:02 | XMS_ITS | Encounter Summary ---
Author Organization [employer] Address [address] [place] [address] Care Team Providers Care Military Cook Name Role Phone Unavailable Primary Care Provider Unavailabl e Encounter Details Date Type Department Care Team (Late st Contact Info) Description 02/02/2021 Historic Encounter [address] [address] ProviderFredrick Historical Social History Tobacco [...] Procedure Name Priority Date/Time Associated Diagnosis Comments RBC MORPHOLOGY Routine 02/02/2021 3:24 AM EST documented in this encounter Results * (ABNORMAL) Smear morphology (02/02/2021 3:24 AM EST) RBC Morphology Abnormal 02/02/2021 10:[address] Estimate Adequate Adequate 02/02/2021 10:30 AM EST Anisocytosis 1+(A) 02/02/2021 10:30 AM EST Poikilocytosis 1+(A) 02/02/2021 10:30 AM EST Hypochromia 1+(A) 02/02/2021 10:30 AM EST Ovalocytes 1+(A) 02/02/2021 10:30 AM EST Blood 02/02/2021 3:24 AM EST 02/02/2021 8:32 AM EST Sle Historical Provider LAB BLOOD ORDERABLES Fi nal Result [facility] [address] [phone] documented in this encounter Visit Diagnoses Not on filedocumented in this encounter
--- OUTSIDE RECORDS SUMMARY | 2024-02-15 23:02 | XMS_ITS | Encounter Summary ---
Author Organization [email or web address] Address [address] [place] [address] Care Team Providers Care Pot Firer Name Role Phone Unavailable Primary Care Provider Unavailabl e Encounter Details Date Type Department Care Team (Late st Contact Info) Description 02/02/2021 Historic Encounter [address] [address] Provider, [facility] Historical Social History Tobacco Use Types [...] Priority Date/Time Associated Diagnosis Comments GLUCOSE-POC Routine 02/02/2021 5:15 PM EST documented in this encounter Results * (ABNORMAL) Glucose, Point of Care (02/02/2021 5:15 PM EST) Glucose POC2 252(H) 70 - 110 mg/dL 02/02/2021 10:15 PM EST [facility] Academic Support Specialist [phone] 02/02/2021 10:15 PM EST [facility] Device SN [id number] 02/02/2021 10:15 PM EST [facility] Blood 02/02/2021 5:15 PM EST 02/02/2021 10:18 PM EST [facility] Historical Provider POINT OF CARE TEST ORDE MAGNOLIA Final Result [facility] [address] [phone] documented in this encounter Visit Diagnoses Not on filedocumented in this encounter
--- OUTSIDE RECORDS SUMMARY | 2024-02-15 23:02 | XMS_ITS | Encounter Summary ---
Author Organization [employer] Address [address] [place] [address] Care Team Providers Care Public Employment Mediator Name Role Phone Unavailable Primary Care Provider Unavailabl e Encounter Details Date Type Department Care Team (Late st Contact Info) Description 02/03/2021 Transcribed Document [facility] [place] [facility] [place] [address] ProviderDick MD [facility] [place] [address] Social History Tobacco Use Types [...] Cerner Conversion Note - Historical ProviderMD - 02/03/2021 5:54 PM MULTIMEDIA TEACHER Patient: CISCO CAZARES Age: 75 years Sex: Female : 1945 Associated Diagnoses: None Author: JOLIE PAGAN MD-[facility] Subjective Chief complaint. 02/03/21 awake not in distress Health Status Allergies: Allergic Reactions (Selected) No Known Allergies, Allergies (1) Active Reaction No Known Allergies None Documented Current medications: (Selected) Inpatient Medications Ordered Chloraseptic Menthol 1.4% topical spray: 1 [place], Oral, Q2H, PRN: Sore Throat Core mg, [...] Oral, At Bedtime Lovenox: 30 mg, SubCutaneous, [id number] MiraLax: 17 Gram, Oral, Daily, PRN: Constipation NORepinephrine injection 8 mg + NaCl 0.9% for drip 250 mL: TITRATE, IntraVENous Normal Saline Flush: 10 mL, IV Push, Q12H Normal Saline Flush: 10 mL, IV Push, See Comment, PRN: IV Use Pepcid: 20 mg, Oral, Daily SOLU-Medrol: 40 mg, IV Push, [id number] Senokot: 8.6 mg, Oral, BID Tylenol: 650 [...] mL: 100 mg, 50 mL/Hr, IV Piggyback, [id number] glucagon: 1 mg, IntraMuscular, Q15Min, PRN: Other [...] Oral, BID levothyroxine: 100 mcg, Oral, Daily niCARdipine injection 25 mg + NaCl 0.9% for drip 250 mL: TITRATE, IntraVENous Documented Medications Documented amLODIPine 2.5 mg oral [...] 1 Tab, Oral, At Bedtime, 0 Refill(s), Home Medications (9) Active amLODIPine 2.5 mg [...] 0.9% 100 mL 100 mg, IV Piggyback, [id number] enoxaparin 30 mg/0.3 ml inj 30 mg 0.3 mL, SubCutaneous, [id number] famotidine 20 mg tab 20 mg 1 Tab, Oral, Daily insulin lispro 1 unit/0.01 mL inj Scale C:, SubCutaneous, AC and at Bedtime isosorbide MONOnitrate ER 30 mg tab 90 mg 3 Tab, Oral, Daily lactobacillus acidophilus cap 1 Cap, Oral, BID levothyroxine 100 mcg tab 100 mcg 1 Tab, Oral, Daily methylPREDNISolone SUCCinate 40 mg inj 40 mg, IV Push, [id number] piperacillin-tazobactam + NaCl 0.9% 50 mL 2.25 [...] Push, Q4H phenol 1.4% throat spray 1 [place], Oral, Q2H polyethylene glycol 3350 pwd 17 g pkt 17 Gram 1 Packet, Oral, Daily Problem list: Medical Hypertension / SNOMED CT [id number] / Confirmed, Active Problems (1) Hypertension Objective VS/Measurements Vitals Signs (last 24 hrs) Last Charted Minimum Maximum Temp 98.5 (FEB 03:) 98.5 (FEB 03:13) 98.2 (FEB 03 00:00) Apical HR 78 (FEB 03 21:27) 78 (FEB 03 21:27) 85 (FEB 03 13:52) Mon HR 86 (FEB 03 20:46) 51 (FEB 02 23:00) 87 (FEB 03 07:00) Resp Rate 18 (FEB 03 20:46) 17 (FEB 03 10:00) H 50 (FEB 03 01:45) SBP H 190 (FEB 03 20:13) 122 (FEB 02 22:30) H 190 (FEB 03 20:13) DBP 87 (FEB 03 20:13) 60 (FEB 02 22:30) H 118 (FEB 03 17:00) MAP 102 (FEB 03 20:13) 53 (FEB 02 22:45) 130 (FEB 03 17:00) SpO2 98 (FEB 03 20:46) 97 (FEB 03 20:13) 100 (FEB 02 22:30) General: Alert and oriented, No acute distress. Eye: Pupils are equal, round and reactive to light, Normal conjunctiva. HENT: Normocephalic. Neck: Supple. Respiratory: Lungs are clear to auscultation, Respirations are non-labored. Cardiovascular: Normal rate, Regular rhythm. Gastrointestinal: Soft, Non-tender. Musculoskeletal: Normal range of motion, Normal strength. Integumentary: Warm. Neurologic: Alert, Oriented. Psychiatric: Not cooperative, Not appropriate mood & affect. Results Review FEB 03 03:07 144 H 118 H 43 / H 143 4.1 21 H 2.30 \ FEB 03 03:07 \ L 8.4 / 7.7 214 / L 26.1 \ FEB 03 03:07 144 H 118 H 43 / H 143 4.1 21 H 2.30 \ FEB 03 03:07 \ L 8.4 / 7.7 214 / L 26.1 \ Impression and Plan PEA cardiopulmonary arrest -Occurred at [facility] during a Stress Test with Dr. [...] GI Prophylaxis:Pepcid COVID negative Full Code plan on vent intubated IV steroids IV zosyn labs in am extubated aak BP control d/w RN disposition tele today home wednesday time spent 28 min Electronically signed by Parviz, [facility] Conversion Hair Blender Cerner at 06/22/2022 7:32 PM CDT documented in this encounter Plan of Treatment Not on file documented as of this encounter Visit Diagnoses Not on filedocumented in this encounter
--- OUTSIDE RECORDS SUMMARY | 2024-02-15 23:02 | XMS_ITS | Encounter Summary ---
Author Organization [email or web address] Address [address] [place] [address] Care Team Providers Care Healthcare Liaison Name Role Phone Unavailable Primary Care Provider Unavailabl e Encounter Details Date Type Department Care Team (Late st Contact Info) Description 02/03/2021 Historic Encounter [address] [address] ProviderBronwyn Historical Social History Tobacco [...] Priority Date/Time Associated Diagnosis Comments GLUCOSE-POC Routine 02/03/2021 5:58 AM EST documented in this encounter Results * (ABNORMAL) Glucose, Point of Care (02/03/2021 5:58 AM EST) Glucose POC2 142(H) 70 - 110 mg/dL 02/03/2021 10:58 AM EST [facility] Manager Line [phone] 02/03/2021 10:58 AM EST [facility] Device SN [id number] 02/03/2021 10:58 AM EST [facility] Device Comment1 Notified Nurse RBV 02/03/2021 10:58 AM EST [facility] Blood 02/03/2021 5:58 AM EST 02/03/2021 10:59 AM EST [facility] Historical Provider POINT OF CARE TEST JEFFREY MERIDA Final Result [facility] [address] [phone] documented in this encounter Visit Diagnoses Not on filedocumented in this encounter
--- OUTSIDE RECORDS SUMMARY | 2024-02-15 23:02 | XMS_ITS | Encounter Summary ---
Author Organization [employer] Address [address] [place] [address] Care Team Providers Care Safekeeping Clerk Name Role Phone Unavailable Primary Care Provider Unavailabl e Encounter Details Date Type Department Care Team (Late st Contact Info) Description 02/02/2021 Historic Encounter [facility] [address] [place] [address] Provider, [facility] Historical Social History Tobacco Use Types [...] Priority Date/Time Associated Diagnosis Comments PHOSPHORUS Routine 02/02/2021 3:24 AM EST documented in this encounter Results * (ABNORMAL) PHOSPHORUS (02/02/2021 3:24 AM EST) Phosphorus 2.4(L) 2.5 - 4.9 mg/dL 02/02/2021 9:05 AM EST Blood 02/02/2021 3:24 AM EST 02/02/2021 8:32 AM EST [facility] Historical Provider MICROBIOLOGY - GENERAL ORDERABLES Final Result [facility] [address] [id number] [phone] documented in this encounter Visit Diagnoses Not on filedocumented in this encounter
--- OUTSIDE RECORDS SUMMARY | 2024-02-15 23:02 | XMS_ITS | Encounter Summary ---
Author Organization [email or web address] Address [address] [place] [address] Care Team Providers Care Demolition Worker Name Role Phone Unavailable Primary Care Provider Unavailabl e Encounter Details Date Type Department Care Team (Late st Contact Info) Description 02/02/2021 Historic Encounter [address] [address] ProviderFredrick Historical Social History Tobacco [...] Associated Diagnosis Comments CBC W/ AUTO DIFF ([facility] DATA CONV) Routine 02/02/2021 3:24 AM EST documented in this encounter Results * (ABNORMAL) CBC W/ AUTO DIFF ([facility] BKR DATA CONV) (02/02/2021 3:24 AM EST) WBC 11.6(H) 4.5 - 10.5 K/uL 02/02/2021 8:37 AM EST RBC 2.79(L) 3.93 - 5.22 Million/uL 02/02/2021 8:37 AM EST Hgb 8.7(L) 11.2 - 15.7 g/dL 02/02/2021 8:37 AM EST Hct 26.3(L) 34.1 - 44.9 % 02/02/2021 8:37 AM EST MCV 94.3 79.0 - 94.8 fL 02/02/2021 8:37 AM EST MCH 31.2 25.6 - 32.2 pg 02/02/2021 8:37 AM EST MCHC 33.1 32.2 - 36.5 Gram/dL 02/02/2021 8:37 AM EST RDW 16.5(H) 11.7 - 14.9 % 02/02/2021 8:37 AM EST Platelet Count 233 163 - 369 K/uL 02/02/2021 8:37 AM EST MPV 10.9 9.4 - 12.4 fL 02/02/2021 8:37 AM EST Slide Review No 02/02/2021 8:40 AM EST nRBC 0.030(H) 0.000 - 0.012 02/02/2021 8:37 AM EST Blood 02/02/2021 3:24 AM EST 02/02/2021 8:32 AM EST Sle Historical Provider LAB BLOOD ORDERABLES Fi nal Result [facility] [address] [phone] documented in this encounter Visit Diagnoses Not on filedocumented in this encounter
--- OUTSIDE RECORDS SUMMARY | 2024-02-15 23:02 | XMS_ITS | Encounter Summary ---
Author Organization [employer] Address [address] [place] [address] Care Team Providers Care Brim Pouncing Machine Operator Name Role Phone Unavailable Primary Care Provider Unavailabl e Encounter Details Date Type Department Care Team (Late st Contact Info) Description 02/03/2021 Transcribed Document [facility] [place] [facility] [place] [address] ProviderDick MD [address] [place] [address] Social History Tobacco Use Types Packs/Day [...] Conversion Note - Historical ProviderMD - 02/03/2021 9:05 AM COMMUNICATIONS CLERK Patient: CISCO CAZARES Age: 75 years Sex: Female : 1945 Associated Diagnoses: None Author: WINSTON NUÑEZ MD-INF Basic Information CC: Sepsis, probable aspiration pneumonia History of Present Illness 75 yo female with h/o T2DM, HLD, hypothyroidism, and HTN who presented to [facility] on 01/29/21 by transfer from [facility] for cardiology evaluation. The patient was getting [...] creatinine of 1.9. She was transferred to [facility]. On arrival on 01/29, her Tlow [...] until 02/06 and reassess. Continues on steroids. Review of Systems Constitutional: Weakness, No fever, No chills, No sweats. Eye: No recent visual problem, No icterus, No blurring, No visual disturbances. Ear/Nose/Mouth/Throat: No decreased hearing, No sore throat. Respiratory: Shortness of breath, Cough, No sputum production, No hemoptysis. Cardiovascular: No chest pain, No palpitations, No bradycardia. Gastrointestinal: No nausea, No vomiting, No diarrhea, No abdominal pain. Genitourinary: No dysuria, No hematuria, No change in urine stream. Hematology/Lymphatics: No bruising tendency, No bleeding tendency, No swollen lymph glands. Endocrine: No excessive thirst, No polyuria, No cold intolerance. Immunologic: Not immunocompromised, No recurrent fevers, No recurrent infections. Musculoskeletal: No back pain, No neck pain, [...] 100 - 100 mg, IV Piggyback, Inj, [id number], infuse over 2 Hour(s), order duration: 7 Day(s), Routine Immunology methylPREDNISolone (SOLU-Medrol) - 40 mg, IV Push, Inj, [id number], Routine Anticoagulant enoxaparin (Lovenox) - 30 mg, SubCutaneous, Inj, [id number] Cardiovascular NORepinephrine 8 mg + Sodium Chloride 0.9% intravenous solut - Bag Volume (mL) = 250, Initial Rate: 0.05 mcg/kg/Min, IntraVENous, TITRATE, MAP Greater Than or Equal To 65 mmHg *Duplicate* isosorbide mononitrate - 90 mg, Oral, ER Tab, Daily, Routine carvedilol (Coreg) - 25 mg, Oral, Tab, BID, Routine labetalol - 10 mg, IV Push, Inj, Q1H, PRN for Hypertension, Routine amLODIPine - 10 mg, Oral, Tab, Daily, Routine niCARdipine 25 mg + Sodium Chloride 0.9% intravenous solutio - Bag Volume (mL) = 250, Initial Rate: 5 mg/Hr, IntraVENous, TITRATE, SBP Less Than 160 mmHg *Duplicate* cloNIDine - 0.1 mg, Oral, Tab, Q8H, [...] (Chloraseptic Menthol 1.4% topical spray) - 1 [place], Oral, [place], Q2H, PRN for Sore Throat, Routine Vitamins [...] Push, Inj, Q3H, PRN for Hypertension, Routine niCARdipine 25 mg + Sodium Chloride 0.9% intravenous solutio - Bag Volume (mL) = 250, Initial Rate: 5 mg/Hr, IntraVENous, TITRATE, SBP Less Than 160 mmHg NORepinephrine 8 mg + Sodium Chloride 0.9% intravenous solut - Bag Volume (mL) = 250, Initial Rate: 0.05 mcg/kg/Min, IntraVENous, TITRATE, MAP Greater Than or Equal To 65 mmHg Physical Examination VS/Measurements Vital Measurements 02/03/2021 8:03 EST Oxygen Saturation 100 % Oxygen Therapy Mode Nasal cannula Oxygen Flow Rate 2 Liter/Min , Vitals Signs (last 24 hrs) Last Charted Minimum Maximum Temp 98.7 (FEB 03 08:00) 97.8 (FEB 02 20:00) 98.2 (FEB 03 00:00) Apical HR 83 (FEB 03 06:23) 69 (FEB 02 20:47) H 111 (FEB 02 09:42) Mon HR 85 (FEB 03 08:03) 51 (FEB 02 22:00) 116 (FEB 02 10:07) Resp Rate H 33 (FEB 03 08:03) 14 (FEB 02 12:00) H 83 (FEB 02 13:15) SBP 122 (FEB 02 22:45) 122 (FEB 02 22:30) 122 (FEB 02 22:30) DBP 60 (FEB 02 22:45) 60 (FEB 02 22:30) 60 (FEB 02 22:30) MAP 92 (FEB 03 08:00) 53 (FEB 02 22:00) 106 (FEB 02 18:00) SpO2 100 (FEB 03 08:03) 96 (FEB 02 10:15) 100 (FEB 02 11:29) General: Moderate distress, Alert, not oriented, appears stated age resting in bed in the ICU. Eye: Pupils are equal, round and reactive to light, Extraocular movements are intact, Normal conjunctiva. HENT: Normocephalic, Normal hearing, Oral mucosa is moist, No pharyngeal erythema, Ears externally normal, nose externally normal. Neck: Supple, Non-tender, No jugular venous distention, [...] No tenderness, No deformity. Integumentary: Warm, Dry, [place], No rash. Neurologic: Alert, No focal deficits, Not oriented. Cognition and Speech: Speech clear and coherent. Psychiatric: Cooperative, Appropriate mood & affect. Review / Management Results review: Labs (Last four charted values) WBC 7.7 (FEB 03) H 11.6 (FEB 02) H 15.0 (FEB 01) H 20.8 (JAN 31) HB L 8.4 (FEB 03) L 8.7 (FEB 02) L 8.9 (FEB 01) L 10.6 (JAN 31) HCT L 26.1 (FEB 03) L 26.3 (FEB 02) L 26.3 (FEB 01) L 30.9 (JAN 31) Plt 214 (FEB 03) 233 (FEB 02) 216 (FEB 01) 272 (JAN 31) Na 144 (FEB 03) 146 (FEB 02) 141 (FEB 01) 140 (JAN 31) K 4.1 (FEB 03) 3.8 (FEB 02) 3.7 (FEB 02) 4.1 (FEB 01) Cl H 118 (FEB 03) H 118 (FEB 02) 112 (FEB 01) 110 (JAN 31) CO2 21 (FEB 03) 21 (FEB 02) 23 (FEB 01) 22 (JAN 31) BUN H 43 (FEB 03) H 35 (FEB 02) H 32 (FEB 01) H 32 (JAN 31) Cr H 2.30 (FEB 03) H 2.20 (FEB 02) H 2.30 (FEB 01) H 2.60 (JAN 31) Glu R H 143 (FEB 03) H 203 (FEB 02) H 177 (FEB 01) H 182 (JAN 31) Ca L 7.6 (FEB 03) L 7.6 (FEB 02) L 7.9 (FEB 01) 9.0 (JAN 31) Lactic 0.7 (FEB 03) 1.2 (FEB 02) 1.7 (JAN 30) C 3.3 (JAN 30) PT H 12.5 (JAN 29) INR 1.2 (JAN 29) PTT 31.8 (JAN 29) AST 23 (FEB 03) 28 (FEB 02) 28 (FEB 01) 29 (JAN 30) ALT 14 (FEB 03) 17 (FEB 02) 13 (FEB 01) L 11 (JAN 30) ALK P 43 (FEB 03) 53 (FEB 02) 50 (FEB 01) 55 (JAN 30) T Bili 0.5 (FEB 03) 0.5 (FEB 02) 0.5 (FEB 01) 0.5 (JAN 30) PTN L 5.2 (FEB 03) L 5.8 (FEB 02) L 5.5 (FEB 01) L 6.1 (JAN 30) ALB L 2.4 (FEB 03) L 2.6 (FEB 02) L 2.4 (FEB 01) L 2.8 (JAN 30) Troponin C 0.771 (JAN 29) , Radiology Results (Last 48 hours) [id number] -- 01/29/2021 22:07 CR Abdomen 1 Vw Portable (02/01/2021 20:30) Result: EXAMINATION TECHNIQUE:AP abdomen.CLINICAL HISTORY:Tube placement.COMPARISON:None.FINDINGS:The nasogastric tube terminates in the stomach. Nonobstructive bowel gaspattern.IMPRESSION:The nasogastric tube terminates in the stomach.Images personally reviewed, interpreted and dictated by Sienna De La Garza CR Chest 1 Vw Portable (02/02/2021 05:23) Result: PORTABLE CHEST HISTORY: Dyspnea.COMPARISON: February 01, 2021.FINDINGS: The right internal jugular catheter tip is in the SVC. Thenasogastric tube coursing below the diaphragm. The heart is normal insize. The mediastinum is unremarkable. There are patchy bilateralairspace opacities, slightly worse on the right, most consistent withatypical viral pneumonia such as COVID 19. There is no pneumothorax. IMPRESSION: Patchy bilateral airspace opacities, slightly worse on theright.Images reviewed, interpreted, and dictated by Dr. Samson Motta.Transcribed by Brooke Bucio PA-C.I have personally viewed, interpreted and dictated the examination. Ihave read and agree with the above final transcribed report. CR Chest 1 Vw Portable (02/03/2021 07:05) [...] by Dr. Austin Contreras.Transcribed by Tricia Peck PA-C. , ACC: [id number] ORDER: Culture MRSA Surveillance DATE: 02/01/2021 09:11 SOURCE: Nasal SITE: Reports Final 02/02/2021 12:55 No MRSA isolated For Infection Control surveillance only. == ACC: [id number] ORDER: Culture Bronch Wash and Stain DATE: 01/30/2021 10:46 SOURCE: Right Lower Lobe SITE: Reports Final 02/01/2021 09:52 No growth Pre 01/31/2021 07:02 No growth GS 01/30/2021 14:00 No organisms seen. Few White Blood Cells == ACC: [id number] ORDER: Culture Sputum and Stain DATE: 01/29/2021 23:26 SOURCE: Tracheal Aspirate SITE: Reports Final 02/01/2021 09:26 Light respiratory georigna isolated No Staph aureus or MRSA isolated. Pre 01/31/2021 06:54 Light respiratory georgina isolated GS 01/30/2021 06:17 <25 Epithelial cells/LPF >25 WBC/LPF Rare Gram Positive Cocci in pairs == ACC: [id number] ORDER: Culture AFB and Stain DATE: 01/30/2021 10:46 SOURCE: Bronchial Alveolar Lavage SITE: Lung R Reports AFB Stain Concentrate 01/31/2021 14:05 No Acid Fast Bacilli seen == ACC: [id number] ORDER: Culture Blood DATE: 01/29/2021 22:39 SOURCE: Blood SITE: Reports Pre 02/03/2021 06:01 No growth at 4 days. Pre 02/02/2021 06:02 No growth at 3 days. Pre 02/01/2021 06:02 No growth at 2 days. Pre 01/31/2021 06:01 No growth at 1 day. Pre 01/30/2021 16:01 Culture less than 24 Hrs old == ACC: [id number] ORDER: Culture Blood DATE: 01/29/2021 22:39 SOURCE: Blood SITE: Reports Pre 02/03/2021 06:01 No growth at 4 days. Pre 02/02/2021 06:02 No growth at 3 days. Pre 02/01/2021 06:02 No growth at 2 days. Pre 01/31/2021 06:01 No growth at 1 day. Pre 01/30/2021 16:01 Culture less than 24 Hrs old == ACC: [id number] ORDER: Culture Fungus DATE: 01/30/2021 10:46 SOURCE: [...] hypoxic respiratory failure/intubated 01/29 and extubated 01/31/21. 5. Acute renal failure, ATN/pre-renal azotemia after cardiac arrest. Worse. 6. Lactic acidosis, likely from cardiogenic shock, and hypoperfusion. 7. Elevated procalcitonin, likely secondary to above. 8. Leukocytosis/neutrophilia, may be steroid induced, was normal value on admission, also related to cardiac arrest. 9. Hypothermia, improved. 10. Anemia, acute ?ABL vs chronic disease. Worse. 11. Hypocalcemia. 12. Hypoalbuminemia, mild malnutrition. Worse. 13. Type 2 diabetes mellitus, with increased risk for infection. 14. Essential hypertension, dyslipidemia. 15. Hypothyroidism. Plan: 1. Diagnostically, follow blood and bronchoscopy cultures, physical examination, imaging, CBC, CMP, ESR, CRP, lactic acid, procalcitonin. Check Legionella and Strep pneumo UAg. Check MRSA surveillance culture. 2. Therapeutically, Continue Zosyn renally dosed, doxycycline, and Zyvox. Will need at least 7-10 days of antibiotics until 02/06 and then reassess. 3. Continue O2 support in ICU, 40% BiPAP on 02/02, worse. 2 L/min on 02/03. Plan has been discussed with patient including side effects of medications and line. At increased risk for side effects of abx and line, readmission, and . documented in this encounter Plan of Treatment Not on file documented as of this encounter Visit Diagnoses Not on filedocumented in this encounter
--- OUTSIDE RECORDS SUMMARY | 2024-02-15 23:02 | XMS_ITS | Encounter Summary ---
Author Organization [employer] Address [address] [place] [address] Care Team Providers Care Buffer Chrome Name Role Phone Unavailable Primary Care Provider Unavailabl e Encounter Details Date Type Department Care Team (Late st Contact Info) Description 02/04/2021 Transcribed Document [facility] [facility] [place] [address] ProviderDick MD [facility] [place] [address] Social History Tobacco Use Types [...] Conversion Note - Historical ProviderMD - 02/04/2021 10:03 AM [employer]CHO[employer] CUSTODIAN Patient: CISCO CAZARES Age: 75 years Sex: Female : 1945 Associated Diagnoses: None Author: JOLIE PAGAN MD-[facility] Subjective Chief complaint. 02/04/21 awake not in distress Health Status Allergies: Allergic Reactions (Selected) No Known Allergies, Allergies (1) Active Reaction No Known Allergies None Documented Current medications: (Selected) Inpatient Medications Ordered Chloraseptic Menthol 1.4% topical spray: 1 [place], Oral, Q2H, PRN: Sore Throat Core mg, [...] Oral, At Bedtime Lovenox: 30 mg, SubCutaneous, [id number] MiraLax: 17 Gram, Oral, Daily, PRN: Constipation Normal Saline Flush: 10 mL, IV Push, Q12H Normal Saline Flush: 10 mL, IV Push, See Comment, PRN: IV Use Pepcid: 20 mg, Oral, Daily SOLU-Medrol: 40 mg, IV Push, [id number] Senokot: 8.6 mg, Oral, BID Tylenol: 650 [...] mL: 100 mg, 50 mL/Hr, IV Piggyback, [id number] glucagon: 1 mg, IntraMuscular, Q15Min, PRN: Other [...] 1 Tab, Oral, At Bedtime , Medications (32) Active Scheduled: (16) #NaCl 0.9% [...] 0.9% 100 mL 100 mg, IV Piggyback, [id number] enoxaparin 30 mg/0.3 ml inj 30 mg 0.3 mL, SubCutaneous, [id number] famotidine 20 mg tab 20 mg 1 Tab, Oral, Daily insulin lispro 1 unit/0.01 mL inj Scale C:, SubCutaneous, AC and at Bedtime isosorbide MONOnitrate ER 30 mg tab 90 mg 3 Tab, Oral, Daily lactobacillus acidophilus cap 1 Cap, Oral, BID levothyroxine 100 mcg tab 100 mcg 1 Tab, Oral, Daily methylPREDNISolone SUCCinate 40 mg inj 40 mg, IV Push, [id number] piperacillin-tazobactam + NaCl 0.9% 50 mL 2.25 [...] Push, Q4H phenol 1.4% throat spray 1 [place], Oral, Q2H polyethylene glycol 3350 pwd 17 g pkt 17 Gram 1 Packet, Oral, Daily Problem list: Medical Hypertension / SNOMED CT [id number] / Confirmed, Active Problems (1) Hypertension Objective VS/Measurements Vitals Signs (last 24 hrs) Last Charted Minimum Maximum Temp 97.6 (FEB 04 05:38) 97.6 (FEB 04 05:38) 98.6 (FEB 03 12:00) Apical HR 63 (FEB 04 06:45) 63 (FEB 04 06:45) 85 (FEB 03 13:52) Mon HR 65 (FEB 04 05:54) 63 (FEB 04 05:38) 104 (FEB 03 23:10) Resp Rate 18 (FEB 04 05:54) 18 (FEB 03 20:46) H 48 (FEB 03 15:07) SBP 134 (FEB 04 05:38) 134 (FEB 04 05:38) H 190 (FEB 03 20:13) DBP 83 (FEB 04 05:38) L 55 (FEB 03 23:10) H 118 (FEB 03 17:00) MAP 112 (FEB 04 05:38) 75 (FEB 03 23:10) 130 (FEB 03 17:00) SpO2 97 (FEB 04 07:57) 97 (FEB 03 20:13) 100 (FEB 03 11:00) General: Alert and oriented, No acute distress. Eye: Pupils are equal, round and reactive to light, Normal conjunctiva. HENT: Normocephalic. Neck: Supple. Respiratory: Lungs are clear to auscultation, Respirations are non-labored. Cardiovascular: Normal rate, Regular rhythm. Gastrointestinal: Soft, Non-tender. Musculoskeletal: Normal range of motion, Normal strength. Integumentary: Warm. Neurologic: Alert, Oriented. Psychiatric: Not cooperative, Not appropriate mood & affect. Results Review FEB 04 05:50 146 H 114 H 45 / 92 4.7 21 H 2.10 \ FEB 04 05:50 \ L 9.3 / 9.4 231 / L 28.5 \ FEB 04 05:50 146 H 114 H 45 / 92 4.7 21 H 2.10 \ FEB 04 05:50 \ L 9.3 / 9.4 231 / L 28.5 \ Impression and Plan PEA cardiopulmonary arrest -Occurred at [facility] during a Stress Test with Dr. [...] GI Prophylaxis:Pepcid COVID negative Full Code plan IV steroids IV zosyn labs in am extubated awake BP control d/w RN disposition patient weak needs PT/OT SNF when bed available PT/OT evaluating for possbile home CM for DC plan time spent 40 min documented in this encounter Plan of Treatment Not on file documented as of this encounter Visit Diagnoses Not on filedocumented in this encounter
--- OUTSIDE RECORDS SUMMARY | 2024-02-15 23:02 | XMS_ITS | Encounter Summary ---
Author Organization [employer] Address [address] [place] [address] Care Team Providers Care Medical Assistant Cardiology Name Role Phone Unavailable Primary Care Provider Unavailabl e Encounter Details Date Type Department Care Team (Late st Contact Info) Description 02/02/2021 Historic Encounter [address] [address] Provider, [facility] Historical Social History Tobacco Use Types [...] Date/Time Associated Diagnosis Comments GLUCOSE-POC Routine 02/02/2021 5:18 AM EST documented in this encounter Results * (ABNORMAL) Glucose, Point of Care (02/02/2021 5:18 AM EST) Glucose POC2 176(H) 70 - 110 mg/dL 02/02/2021 10:18 AM EST [facility] Automat Watcher [id number] 02/02/2021 10:18 AM EST [facility] Device SN [id number] 02/02/2021 10:18 AM EST [facility] Device Comment1 Notified Nurse RBV 02/02/2021 10:18 AM EST [facility] Blood 02/02/2021 5:18 AM EST 02/02/2021 4:29 PM EST [facility] Historical Provider POINT OF CARE TEST JEFFREY MERIDA Final Result [facility] [address] [phone] documented in this encounter Visit Diagnoses Not on filedocumented in this encounter
--- OUTSIDE RECORDS SUMMARY | 2024-02-15 23:02 | XMS_ITS | Encounter Summary ---
Author Organization [employer] Address [address] [place] [address] Care Team Providers Care Tower Hand Name Role Phone Unavailable Primary Care Provider Unavailabl e Encounter Details Date Type Department Care Team (Late st Contact Info) Description 02/02/2021 Transcribed Document [facility] [place] [facility] [place] [address] ProviderDick MD [facility] [address] Social History Tobacco Use Types [...] Cerner Conversion Note - Historical ProviderMD - 02/02/2021 10:31 PM 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 She is doing a crossword puzzle. She is calm and conversant. She is breathing comfortably on nasal cannula. She denies worsening sputum production, chest pain, palpitations or fevers. Vital Signs T: 36.6 ??C TMIN: 36.6 ??C TMAX: 37.1 ??C HR: 52(Monitored) RR: 28 BP: 88/38(Line) SpO2: 100% Oxygen Settings (Last) Oxygen Therapy Mode: Nasal cannula (02/02/21 20:46:00) Oxygen Flow Rate: 2 Liter/Min (02/02/21 20:46:00) Intake & Output Totals Last 24 Hours (7a-7a) Input Total: 972.02 mL Output Total: 650 mL Balance: 322.02 mL Physical Exam Gen.: Alert, no acute distress, Sitting up in a chair, doing a crossword puzzle Cardiovascular: Normal S1-S2, regular rhythm, normal rate no rub no gallop Pulmonary: Coarse breath sounds bilaterally, fair air movement, on oxygen per nasal cannula Gastrointestinal: Abdomen is soft, nontender, nondistended, no guarding Genitourinary: Sanchez catheter draining large amount of alireza urine Musculoskeletal good muscle tone no significant lower extremity edema Neuro/psych: Mood and affect are appropriate, thoughts are fluent, moves all extremities spontaneously, no focal deficits Skin: No lesions, rashes or ecchymoses, I did not examine the sacral area Assessment and plan: Acute kidney injury versus chronic kidney disease stage III Diabetes mellitus Hypertension Cardiac arrest, improved Hyperkalemia, resolved Respiratory failure, improving Acute kidney injury versus chronic kidney disease stage III: Her clearance continues to improve. I suspect she has chronic kidney disease at baseline in the setting of her diabetes and hypertension. -I'm reassured that she is globally improving. Her potassium has normalized. Her blood pressure is . Her modestly elevated kidney function continues to stabilize. We will continue to monitor her kidney function. I am reassured that she is globally improving. We should avoid REJI inhibitor until her kidney function reaches its clinical baseline. Franck Hunag MD -Nephrology Note dictated with [employer] voice recognition system Partner with Dr. Razo, Dr. Rodriguez and Dr. Shay - Medications amLODIPine, 10 mg= 1 Tab, Oral, Daily carvedilol, 12.5 mg= 1 Tab, Oral, BID Chloraseptic Menthol 1.4% topical spray, 1 [place], Oral, Q2H, PRN cloNIDine, 0.1 mg= 1 Tab, Oral, Q8H Dextrose 50% injection, 25 Gram= 50 mL, [...] mg= 0.5 mL, IV Push, Q3H, PRN hydrOXYzine hydrochloride, 10 mg= 1 Tab, Oral, Q6H, PRN insulin lispro sliding scale, Scale C:, SubCutaneous, AC and at Bedtime isosorbide mononitrate, 90 mg= 3 Tab, Oral, Daily labetalol, 10 mg= 2 mL, IV Push, Q1H, PRN lactobacillus acidophilus, 1 Cap, Oral, BID levothyroxine, 100 mcg= 1 Tab, Oral, Daily Lipitor, 40 mg= 1 Tab, Oral, At Bedtime Lovenox, 30 mg= 0.3 mL, SubCutaneous, [id number] MiraLax, 17 Gram= 1 Packet, Oral, Daily, PRN niCARdipine injection 25 mg + NaCl 0.9% for drip 250 mL NORepinephrine injection 8 mg + NaCl 0.9% for drip 250 mL Normal Saline Flush, 10 mL, IV Push, Q12H Normal Saline Flush, 10 mL, IV Push, See Comment, PRN Pepcid, 20 mg= 1 Tab, Oral, Daily Senokot, 8.6 mg= 1 Tab, Oral, BID SOLU-Medrol, 40 mg, IV Push, [id number] Tylenol, 650 mg= 2 Tab, Oral, Q4H, PRN Zofran, 4 mg= 2 mL, IV Push, Q4H, PRN Zosyn + Sodium Chloride 0.9% intravenous solution 50 mL Lab Results Test Name Test Result Date/Time Sodium Level 146 mmol/L 02/02/2021 03:24 EST Potassium Level 3.8 mmol/L 02/02/2021 17:14 EST Potassium Level 3.7 mmol/L 02/02/2021 03:24 EST Chloride Level 118 mmol/L (High) 02/02/2021 03:24 EST Carbon Dioxide Level 21 mmol/L 02/02/2021 03:24 EST Anion Gap 11 02/02/2021 03:24 EST Glucose Level 203 mg/dL (High) 02/02/2021 03:24 EST Blood Urea Nitrogen 35 mg/dL (High) 02/02/2021 03:24 EST Creatinine Level 2.20 mg/dL (High) 02/02/2021 03:24 EST eGFR 27 mL/min/1.73m2 (Low) 02/02/2021 03:24 EST eGFR NonAfrican 22 mL/min/1.73m2 (Low) 02/02/2021 03:24 EST Bun/Creatinine 15.9 02/02/2021 03:24 EST Calcium Level 7.6 mg/dL (Low) 02/02/2021 03:24 EST Protein Total 5.8 Gram/dL (Low) 02/02/2021 03:24 EST Albumin Level 2.6 Gram/dL (Low) 02/02/2021 03:24 EST Globulin 3.2 Gram/dL 02/02/2021 03:24 EST A/G Ratio 0.8 (Low) 02/02/2021 03:24 EST Bilirubin Total 0.5 mg/dL 02/02/2021 03:24 EST Alk Phos 53 Units/Liter 02/02/2021 03:24 EST AST 28 Units/Liter 02/02/2021 03:24 EST ALT 17 Units/Liter 02/02/2021 03:24 EST Magnesium Level 2.1 mg/dL 02/02/2021 03:24 EST Phosphorus 2.4 mg/dL (Low) 02/02/2021 03:24 EST Device Comment 1 Notified Nurse RBV 02/02/2021 05:18 EST Device Comment 1 Notified Nurse RBV 02/01/2021 23:21 EST Glucose POC2 207 mg/dL (High) 02/02/2021 20:46 EST Glucose POC2 252 mg/dL (High) 02/02/2021 17:15 EST Glucose POC2 210 mg/dL (High) 02/02/2021 11:47 EST Glucose POC2 176 mg/dL (High) 02/02/2021 05:18 EST Glucose POC2 217 mg/dL (High) 02/01/2021 23:21 EST CRP 7.09 mg/dL (High) 02/02/2021 03:24 EST Lactic Acid Level 1.2 mmol/L 02/02/2021 03:24 EST Calcium Ionized 1.13 mmol/L 02/02/2021 03:24 EST WBC 11.6 K/uL (High) 02/02/2021 03:24 EST RBC 2.79 Million/uL (Low) 02/02/2021 03:24 EST Hgb 8.7 g/dL (Low) 02/02/2021 03:24 EST Hct 26.3 % (Low) 02/02/2021 03:24 EST MCV 94.3 fL 02/02/2021 03:24 EST MCH 31.2 pg 02/02/2021 03:24 EST MCHC 33.1 Gram/dL 02/02/2021 03:24 EST Platelet Count 233 K/uL 02/02/2021 03:24 EST MPV 10.9 fL 02/02/2021 03:24 EST RDW 16.5 % (High) 02/02/2021 03:24 EST Neut % 89.3 % (High) 02/02/2021 03:24 EST Neut # 10.31 K/uL (High) 02/02/2021 03:24 EST Lymph % 4.7 % (Low) 02/02/2021 03:24 EST Lymph # 0.54 x10(3)/uL (Low) 02/02/2021 03:24 EST Medina % 3.5 % 02/02/2021 03:24 EST [place]ina # 0.41 K/uL 02/02/2021 03:24 EST Eos % 0.0 % 02/02/2021 03:24 EST Eos # 0.00 x10(3)/uL 02/02/2021 03:24 EST Baso % 0.1 % 02/02/2021 03:24 EST Baso # .01 x10(3)/uL 02/02/2021 03:24 EST nRBC 0.030 (High) 02/02/2021 03:24 EST RBC Morphology Abnormal 02/02/2021 03:24 EST Anisocytosis 1+ (Abnormal) 02/02/2021 03:24 EST Poikilocytosis 1+ (Abnormal) 02/02/2021 03:24 EST Hypochromia 1+ (Abnormal) 02/02/2021 03:24 EST Ovalocytes 1+ (Abnormal) 02/02/2021 03:[address] Estimate Adequate 02/02/2021 03:24 EST Sed Rate Auto 34 mm/Hr (High) 02/02/2021 03:24 EST Slide Review No 02/02/2021 03:24 EST IG# 0.28 x10(3)/uL (High) 02/02/2021 03:24 EST IG% 2.40 % (High) 02/02/2021 03:24 EST Procalcitonin 18.87 ng/mL (High) 02/02/2021 03:24 EST Electronically signed by Parviz, [facility] Conversion Polls Or Surveys Interviewer Cerner at 06/22/2022 7:21 PM CDT documented in this encounter Plan of Treatment Not on file documented as of this encounter Visit Diagnoses Not on filedocumented in this encounter
--- OUTSIDE RECORDS SUMMARY | 2024-02-15 23:02 | XMS_ITS | Encounter Summary ---
Author Organization [employer] Address [address] [place] [address] Care Team Providers Care International Banker Name Role Phone Unavailable Primary Care Provider Unavailabl e Encounter Details Date Type Department Care Team (Late st Contact Info) Description 02/01/2021 Historic Encounter [facility] [address] [place] [address] Provider, [facility] Historical Social History Tobacco Use Types [...] Priority Date/Time Associated Diagnosis Comments CALCIUM IONIZED ([facility] DATA CONV) Routine 02/01/2021 2:40 AM EST documented in this encounter Results * CALCIUM IONIZED ([facility] DATA CONV) (02/01/2021 2:40 AM EST) Calcium Ionized 1.14 1.12 - 1.32 mmol/L 02/01/2021 8:[address] [facility] Blood 02/01/2021 2:40 AM EST 02/01/2021 8:00 AM EST us [facility] Historical Provider LAB BLOOD ORDERABLES Fi nal Result [facility] [address] [phone] documented in this encounter Visit Diagnoses Not on filedocumented in this encounter
--- OUTSIDE RECORDS SUMMARY | 2024-02-15 23:02 | XMS_ITS | Encounter Summary ---
Author Organization [employer] Address [address] [place] [address] Care Team Providers Care Sprinkler Inspector Name Role Phone Unavailable Primary Care Provider Unavailabl e Encounter Details Date Type Department Care Team (Late st Contact Info) Description 02/02/2021 Historic Encounter [facility] [address] [place] [address] Provider, [facility] Historical Social History Tobacco Use Types Packs/Day [...] Name Priority Date/Time Associated Diagnosis Comments PROCALCITONIN ([facility]K DATA CONV Routine 02/02/2021 3:24 AM EST documented in this encounter Results * (ABNORMAL) PROCALCITONIN ([facility] BKR DATA CONV (02/02/2021 3:24 AM EST) Procalcitonin 18.87(H) 0.00 - 2.00 ng/mL 02/02/2021 9:23 AM EST Blood 02/02/2021 3:24 AM EST 02/02/2021 8:32 AM EST us [facility] Historical Provider LAB BLOOD ORDERABLES Fi nal Result [facility] [address] [place], [place] [address] [phone] documented in this encounter Visit Diagnoses Not on filedocumented in this encounter
--- OUTSIDE RECORDS SUMMARY | 2024-02-15 23:02 | XMS_ITS | Encounter Summary ---
Author Organization [employer] Address [address] [place] [address] Care Team Providers Care Forestry Aid Name Role Phone Unavailable Primary Care Provider Unavailabl e Encounter Details Date Type Department Care Team (Late st Contact Info) Description 02/03/2021 Historic Encounter [address] [address] Provider [facility] Historical Social History Tobacco Use Types Packs/Day [...] Date/Time Associated Diagnosis Comments GLUCOSE-POC Routine 02/03/2021 4:24 PM EST documented in this encounter Results * (ABNORMAL) Glucose, Point of Care (02/03/2021 4:24 PM EST) Glucose POC2 269(H) 70 - 110 mg/dL 02/03/2021 9:[address] [facility] Crew Team Member [id number] 02/03/2021 9:[address] [facility] Device SN [id number] 02/03/2021 9:[address] [facility] Device Comment1 Protocols Followed 02/03/2021 9:[address] [facility] Blood 02/03/2021 4:24 PM EST 02/03/2021 10:34 PM EST [facility] Historical Provider POINT OF CARE TEST JEFFREY MERIDA Final Result [facility] [address] [place] [address], [facility] [phone] documented in this encounter Visit Diagnoses Not on filedocumented in this encounter
--- OUTSIDE RECORDS SUMMARY | 2024-02-15 23:02 | XMS_ITS | Encounter Summary ---
Author Organization [employer] Address [address] [place] [address] Care Team Providers Care Legislative Correspondent Name Role Phone Unavailable Primary Care Provider Unavailabl e Encounter Details Date Type Department Care Team (Late st Contact Info) Description 02/02/2021 Transcribed Document [facility] [place] [facility] [place] [address] ProviderDick MD [address] [place] [address] Social History Tobacco Use Types Packs/Day [...] Conversion Note - Historical ProviderMD - 02/02/2021 9:51 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 on 01/29/21 by transfer from [facility] for cardiology evaluation. The patient was getting [...] creatinine of 1.9. She was transferred to [facility]. On arrival on 01/29, her Tlow was [...] along with steroids until 02/06 and reassess. Review of Systems Constitutional: Weakness, No fever, No chills, No sweats. Eye: No recent visual problem, No icterus, No blurring, No visual disturbances. Ear/Nose/Mouth/Throat: No decreased hearing, No sore throat. Respiratory: Shortness of breath, Cough, No sputum production. Cardiovascular: No chest pain, No palpitations, No [...] No headache. Psychiatric: No anxiety, No depression. Unable to obtain: Due to clinical condition. Health Status Current medications: Medications by Classification Antimicrobials piperacillin-tazobactam + Sodium Chloride 0.9% intravenous s - 2.25 Gram, IV Piggyback, Inj, Q8HInt, infuse over 3 Hour(s), order duration: 7 Day(s), Routine doxycycline + Sodium Chloride 0.9% intravenous solution 100 - 100 mg, IV Piggyback, Inj, [id number], infuse over 2 Hour(s), order duration: 7 Day(s), Routine Immunology methylPREDNISolone (SOLU-Medrol) - 40 mg, IV Push, Inj, [id number], Routine Anticoagulant enoxaparin (Lovenox) - 30 mg, SubCutaneous, Inj, [id number] Cardiovascular NORepinephrine 8 mg + Sodium Chloride 0.9% intravenous solut - Bag Volume (mL) = 250, Initial Rate: 0.05 mcg/kg/Min, IntraVENous, TITRATE, MAP Greater Than or Equal To 65 mmHg *Duplicate* isosorbide mononitrate - 90 mg, Oral, ER Tab, Daily, Routine carvedilol - 12.5 mg, Oral, Tab, BID, Routine labetalol - 10 mg, IV Push, Inj, Q1H, PRN for Hypertension, Routine amLODIPine - 10 mg, Oral, Tab, Daily, Routine niCARdipine 25 mg + Sodium Chloride 0.9% intravenous solutio - Bag Volume (mL) = 250, Initial Rate: 5 mg/Hr, IntraVENous, TITRATE, SBP Less Than 160 mmHg *Duplicate* cloNIDine - 0.1 mg, Oral, Tab, Q8H, Routine bumetanide (Bumex) - 2 mg, IV Push, Inj, 1-Time, Routine atorvastatin (Lipitor) - 40 mg, Oral, [...] 1 Cap, Oral, Cap, BID, Routine Endocrine glucose (Dextrose 50% injection) - 25 Gram, [...] (Chloraseptic Menthol 1.4% topical spray) - 1 [place], Oral, [place], Q2H, PRN for Sore Throat, Routine Vitamins [...] Push, Inj, Q3H, PRN for Hypertension, Routine insulin regular (insulin regular sliding scale) - Scale B, SubCutaneous, Inj, Q6H, Routine niCARdipine 25 mg + Sodium Chloride 0.9% intravenous solutio - Bag Volume (mL) = 250, Initial Rate: 5 mg/Hr, IntraVENous, TITRATE, SBP Less Than 160 mmHg NORepinephrine 8 mg + Sodium Chloride 0.9% intravenous solut - Bag Volume (mL) = 250, Initial Rate: 0.05 mcg/kg/Min, IntraVENous, TITRATE, MAP Greater Than or Equal To 65 mmHg Physical Examination VS/Measurements Vital Measurements 02/02/2021 7:20 EST Oxygen Therapy Mode BiPAP FiO2 40 % , Vitals Signs (last 24 hrs) Last Charted Minimum Maximum Temp 98.3 (FEB 02 04:00) 98.3 (FEB 02 04:00) 98.8 (FEB 01 12:00) Apical HR H 111 (FEB 02 09:42) 97 (FEB 01 16:10) H 119 (FEB 01 13:41) Mon HR 113 (FEB 02 07:20) 68 (FEB 01 10:00) 121 (FEB 02 07:00) Resp Rate H 36 (FEB 02 07:20) 20 (FEB 01 14:17) H 53 (FEB 02 04:00) MAP 86 (FEB 02 07:00) 83 (FEB 01 23:00) 105 (FEB 01 11:00) SpO2 97 (FEB 02 07:20) L 83 (FEB 01 18:00) 98 (FEB 01 10:00) General: Moderate distress, Alert, not oriented, appears [...] Non-tender, Non-distended, Normal bowel sounds, No organomegaly. Genitourinary: No genital lesions, back straight, no CVA tenderness, breasts symmetric, rectal per history of present illness. Lymphatics: No lymphadenopathy neck, axilla, groin. Musculoskeletal: Normal range of motion, Normal strength, No tenderness, No deformity. Integumentary: Warm, Dry, [place], No rash. Neurologic: Alert, Normal sensory, Normal motor function, No focal deficits, Cranial Nerves II-XII are grossly intact, Normal deep tendon reflexes, Not oriented. Cognition and Speech: Speech clear and coherent. Psychiatric: Cooperative, Appropriate mood & affect. Review / Management Results review: Labs (Last four charted values) WBC H 11.6 (FEB 02) H 15.0 (FEB 01) H 20.8 (JAN 31) 7.8 (JAN 30) HB L 8.7 (FEB 02) L 8.9 (FEB 01) L 10.6 (JAN 31) L 10.9 (JAN 30) HCT L 26.3 (FEB 02) L 26.3 (FEB 01) L 30.9 (JAN 31) L 33.4 (JAN 30) Plt 233 (FEB 02) 216 (FEB 01) 272 (JAN 31) 262 (JAN 30) Na 146 (FEB 02) 141 (FEB 01) 140 (JAN 31) 138 (JAN 30) K 3.7 (FEB 02) 4.1 (FEB 01) 4.4 (JAN 31) H 5.3 (JAN 30) Cl H 118 (FEB 02) 112 (FEB 01) 110 (JAN 31) 111 (JAN 30) CO2 21 (FEB 02) 23 (FEB 01) 22 (JAN 31) L 18 (JAN 30) BUN H 35 (FEB 02) H 32 (FEB 01) H 32 (JAN 31) H 30 (JAN 30) Cr H 2.20 (FEB 02) H 2.30 (FEB 01) H 2.60 (JAN 31) H 2.50 (JAN 30) Glu R H 203 (FEB 02) H 177 (FEB 01) H 182 (JAN 31) H 222 (JAN 30) Ca L 7.6 (FEB 02) L 7.9 (FEB 01) 9.0 (JAN 31) 8.4 (JAN 30) Lactic 1.2 (FEB 02) 1.7 (JAN 30) C 3.3 (JAN 30) C 5.0 (JAN 29) PT H 12.5 (JAN 29) INR 1.2 (JAN 29) PTT 31.8 (JAN 29) AST 28 (NOV ) 28 (FEB 01) 29 (JAN 30) 21 (JAN 30) ALT 17 (FEB 02) 13 (FEB 01) L 11 (JAN 30) L 11 (JAN 30) ALK P 53 (FEB 02) 50 (FEB 01) 55 (JAN 30) 64 (JAN 30) T Bili 0.5 (FEB 02) 0.5 (FEB 01) 0.5 (JAN 30) 0.6 (JAN 30) PTN L 5.8 (FEB 02) L 5.5 (FEB 01) L 6.1 (JAN 30) L 5.9 (JAN 30) ALB L 2.6 (FEB 02) L 2.4 (FEB 01) L 2.8 (JAN 30) L 2.8 (JAN 30) Troponin C 0.771 (JAN 29) , ACC: [id number] ORDER: Culture Bronch Wash and Stain DATE: 01/30/2021 10:46 SOURCE: Right Lower Lobe SITE: Reports Final 02/01/2021 09:52 No growth Pre 01/31/2021 07:02 No growth GS 01/30/2021 14:00 No organisms seen. Few White Blood Cells == ACC: [id number] ORDER: Culture Sputum and Stain DATE: 01/29/2021 23:26 SOURCE: Tracheal Aspirate SITE: Reports Final 02/01/2021 09:26 Light respiratory georgina isolated No Staph aureus or MRSA isolated. Pre 01/31/2021 06:54 Light respiratory georgina isolated GS 01/30/2021 06:17 <25 Epithelial cells/LPF >25 WBC/LPF Rare Gram Positive Cocci in pairs == ACC: [id number] ORDER: Culture AFB and Stain DATE: 01/30/2021 10:46 SOURCE: Bronchial Alveolar Lavage SITE: Lung R Reports AFB Stain Concentrate 01/31/2021 14:05 No Acid Fast Bacilli seen == ACC: [id number] ORDER: Culture Blood DATE: 01/29/2021 22:39 SOURCE: Blood SITE: Reports Pre 02/02/2021 06:02 No growth at 3 days. Pre 02/01/2021 06:02 No growth at 2 days. Pre 01/31/2021 06:01 No growth at 1 day. Pre 01/30/2021 16:01 Culture less than 24 Hrs old == ACC: [id number] ORDER: Culture Blood DATE: 01/29/2021 22:39 SOURCE: Blood SITE: Reports Pre 02/02/2021 06:02 No growth at 3 days. Pre 02/01/2021 06:02 No growth at 2 days. Pre 01/31/2021 06:01 No growth at 1 day. Pre 01/30/2021 16:01 Culture less than 24 Hrs old == ACC: [id number] ORDER: Culture Fungus DATE: 01/30/2021 10:46 SOURCE: Bronchial Alveolar Lavage SITE: Lung R Reports EMMY 01/30/2021 14:00 No Fungal elements seen == . Chest x-ray results Radiology Results (Last 48 hours) [id number] -- 01/29/2021 22:07 CR Chest 1 Vw Portable (02/01/2021 04:55) Result: PORTABLE CHEST 02/01/2021 5:00 AM HISTORY: Pneumonia.COMPARISON: 1 day prior.FINDINGS: Mild cardiomegaly. Moderate diffuse lung opacities areunchanged. Trace right pleural effusion. No pneumothorax. Right IJcentral, tip in SVC. Interval extubation and NG tube removal. IMPRESSION: Interval extubation and NG tube removal. Otherwise unchanged.Images reviewed, interpreted, and dictated by Yifan Pozo DO CR Abdomen 1 Vw Portable (02/01/2021 20:30) [...] agree with the above final transcribed report. Impression and Plan 1. Severe sepsis/cardiogenic shock [...] disease. 11. Hypocalcemia. 12. Hypoalbuminemia, mild malnutrition. 13. Type 2 diabetes mellitus, with increased [...] in ICU, 40% BiPAP on 02/02, worse. Plan has been discussed with patient including side effects of medications and line. At increased risk for side effects of abx and line, readmission, and . Time > 30 min. 6-6:33 am. documented in this encounter Plan of Treatment Not on file documented as of this encounter Visit Diagnoses Not on filedocumented in this encounter
--- OUTSIDE RECORDS SUMMARY | 2024-02-15 23:02 | XMS_ITS | Encounter Summary ---
Author Organization [employer] Address [address] [place] [address] Care Team Providers Care Health Data Administrator Name Role Phone Unavailable Primary Care Provider Unavailabl e Encounter Details Date Type Department Care Team (Late st Contact Info) Description 02/03/2021 Transcribed Document [facility] [place] Family Medicine [address] [place] [address] ProviderDick MD [address] [place] [address] Social History Tobacco Use Types [...] Conversion Note - Historical ProviderMD - 02/03/2021 5:00 AM WELDER TECH Chart Check - Review Order Profile Entered On: 02/03/2021 5:32 EST Performed On: 02/03/2021 5:00 EST by Eli Ballesteros Non Emp RN Chart Check Powerplans Initiated/Discontinued as Appropriate : Yes Eli Ballesteros Non Emp RN - 02/03/2021 5:32 EST documented in this encounter Plan of Treatment Not on file documented as of this encounter Visit Diagnoses Not on filedocumented in this encounter
--- OUTSIDE RECORDS SUMMARY | 2024-02-15 23:02 | XMS_ITS | Encounter Summary ---
Author Organization [employer] Address [address] [place] [address] Care Team Providers Care 911 Dispatcher Name Role Phone Unavailable Primary Care Provider Unavailabl e Encounter Details Date Type Department Care Team (Late st Contact Info) Description 02/04/2021 Transcribed Document [facility] Family Medicine [facility] [address] ProviderDick MD [facility] [place] [address] Social History Tobacco Use Types [...] Cerner Conversion Note - Dick ProviderMD - 02/04/2021 4:15 PM ARCHAEOLOGIST Patient Resource Center Entered On: 02/04/2021 16:16 EST Performed On: 02/04/2021 16:15 EST by Tamica Aguilar, Vendor Relationship Manager Patient Resource Center Provider Status : EST Other Established Provider Name : ELLIE YOON Patient Phone Number : [phone] Patient Insurance Type : Medicare Source of Referral : Patient recently visited- No need to visit patient- No new updates Location of Patient : Non ED patient Primary Care Scheduled : No Specialty Care Scheduled : No Qualify for Diabetes and/or Nutrition Referral : No Wound Care Appointment Made : No Why Patient Visited ED- Specialty spent : Other How Patient Arrived at ED : Other Patient Resource Center Comment : No PCP audit. Patient is established with ELLIE Yoon ([place]) Follow Up Needed : No Tamica Aguilar, Vendor Relationship Manager - 02/04/2021 16:15 EST Electronically signed by Parviz, [facility] Conversion Power Chisel Operator Cerner at 06/22/2022 7:17 PM CDT documented in this encounter Plan of Treatment Not on file documented as of this encounter Visit Diagnoses Not on filedocumented in this encounter
--- OUTSIDE RECORDS SUMMARY | 2024-02-15 23:02 | XMS_ITS | Encounter Summary ---
Author Organization [employer] Address [address] [place] [address] Care Team Providers Care Target Man Name Role Phone Unavailable Primary Care Provider Unavailabl e Encounter Details Date Type Department Care Team (Late st Contact Info) Description 02/02/2021 Historic Encounter [address] [address] ProviderBronwyn Historical Social History Tobacco [...] Date/Time Associated Diagnosis Comments GLUCOSE-POC Routine 02/02/2021 11:47 AM EST documented in this encounter Results * (ABNORMAL) Glucose, Point of Care (02/02/2021 11:47 AM EST) Glucose POC2 210(H) 70 - 110 mg/dL 02/02/2021 4:47 PM EST [facility] Valet Service Attendant [phone] 02/02/2021 4:47 PM EST [facility] Device SN [id number] 02/02/2021 4:47 PM EST [facility] Blood 02/02/2021 11:4 7 AM EST 02/02/2021 4:51 PM EST [facility] Historical Provider POINT OF CARE TEST ORDE MAGNOLIA Final Result [facility] [address] [phone] documented in this encounter Visit Diagnoses Not on filedocumented in this encounter
--- OUTSIDE RECORDS SUMMARY | 2024-02-15 23:02 | XMS_ITS | Encounter Summary ---
Author Organization [employer] Address [address] [place] [address] Care Team Providers Care Industrial Tractor Driver Name Role Phone Unavailable Primary Care Provider Unavailabl e Encounter Details Date Type Department Care Team (Late st Contact Info) Description 02/03/2021 Historic Encounter [facility] [address] [place] [address] Provider, [facility] Historical Social History Tobacco Use Types [...] Date/Time Associated Diagnosis Comments LACTIC ACID LEVEL ([facility] DATA CONV) Routine 02/03/2021 2:45 AM EST documented in this encounter Results * LACTIC ACID LEVEL ([facility] DATA CONV) (02/03/2021 2:45 AM EST) Lactic Acid Level 0.7 0.4 - 2.0 mmol/L 02/03/2021 8:20 AM EST Blood 02/03/2021 2:45 AM EST 02/03/2021 7:55 AM EST [facility] Historical Provider LAB BLOOD ORDERABLES Fi nal Result [facility] [address] [place], [place] [address] [phone] documented in this encounter Visit Diagnoses Not on filedocumented in this encounter
--- OUTSIDE RECORDS SUMMARY | 2024-02-15 23:02 | XMS_ITS | Encounter Summary ---
Author Organization [employer] Address [address] [place] [address] Care Team Providers Care Head Animal Trainer Name Role Phone Unavailable Primary Care Provider Unavailabl e Encounter Details Date Type Department Care Team (Late st Contact Info) Description 02/03/2021 Historic Encounter [facility] [address] [place] [address] Provider, [facility] Historical Social History Tobacco Use Types [...] Priority Date/Time Associated Diagnosis Comments MAGNESIUM LEVEL ([facility] DATA CONV) Routine 02/03/2021 3:07 AM EST documented in this encounter Results * MAGNESIUM LEVEL ([facility] DATA CONV) (02/03/2021 3:07 AM EST) Magnesium Level 2.2 1.5 - 2.4 mg/dL 02/03/2021 8:21 AM EST Blood 02/03/2021 3:07 AM EST 02/03/2021 8:07 AM EST [facility] Historical Provider LAB BLOOD ORDERABLES Fi nal Result [facility] [address] [place], [place] [address] [phone] documented in this encounter Visit Diagnoses Not on filedocumented in this encounter
--- OUTSIDE RECORDS SUMMARY | 2024-02-15 23:02 | XMS_ITS | Encounter Summary ---
Author Organization [employer] Address [address] [place] [address] Care Team Providers Care Manager Banquet Name Role Phone Unavailable Primary Care Provider Unavailabl e Encounter Details Date Type Department Care Team (Late st Contact Info) Description 02/02/2021 Historic Encounter [facility] [address] [place] [address] Provider, [facility] Historical Social History Tobacco Use Types Packs/Day [...] Date/Time Associated Diagnosis Comments LACTIC ACID LEVEL ([facility] DATA CONV) Routine 02/02/2021 3:24 AM EST documented in this encounter Results * LACTIC ACID LEVEL ([facility] DATA CONV) (02/02/2021 3:24 AM EST) Lactic Acid Level 1.2 0.4 - 2.0 mmol/L 02/02/2021 8:58 AM EST Blood 02/02/2021 3:24 AM EST 02/02/2021 8:32 AM EST [facility] Historical Provider LAB BLOOD ORDERABLES Fi nal Result [facility] [address] [place], [place] [address] [phone] documented in this encounter Visit Diagnoses Not on filedocumented in this encounter
--- OUTSIDE RECORDS SUMMARY | 2024-02-15 23:02 | XMS_ITS | Encounter Summary ---
Author Organization [employer] Address [address] [place] [address] Care Team Providers Care Welding Process Specialist Name Role Phone Unavailable Primary Care Provider Unavailabl e Encounter Details Date Type Department Care Team (Late st Contact Info) Description 02/02/[address] [facility] [place] Family Medicine [facility] [place] [address] ProviderDick MD [facility] [place] [address] Social History Tobacco Use Types [...] Cerner Conversion Note - Historical Provider, - 02/02/2021 12:45 PM ARMATURE BALANCER Treatment Intervention, OT Entered On: 02/03/2021 15:10 EST Performed On: 02/03/2021 9:53 EST by KYLE LAND, OTR/Dieter General Information, OT Visit Type, OT : Treatment Note Patient Orders : Order Date Order Ordering 01/29/2021 22:39 OT Evaluation and Treatment Ordered By: CHRISTIANO CABEZAS DO-INT 02/01/2021 09:20 OT Evaluation and Treatment Ordered By: CRISTINE RAMEY APRN 02/02/2021 12:45 OT Additional Tx Ordered By: Active Diagnoses : No Qualifying Diagnoses Therapy Diagnosis, OT : decreased indpendence secondary to generalized weakness Admission Date : 01/29/2021 22:07 Co-treated by, OT : Physical Therapist Personal Devices : Personal Devices No Devices Recorded Assistive Devices : Assistive Devices No Devices Recorded Precautions in Place : Fall prevention measures KYLE LAND, OTR/L - 02/03/2021 15:06 EST General Status Patient Received Status : Supine in bed Treatment Start Time : 02/03/2021 9:30 EST Patient Left Status : Up in chair, RN/PCT informed, All needs met and within reach RN/PCT Informed Comment : JASS Ramirez Treatment End Time : 02/03/2021 9:53 EST Treatment Time : 23 Minute(s) KYLE LAND, OTR/L - 02/03/2021 15:06 EST Self Care/Home Management, OT Toileting Assist Level : Assist, maximal Toilet Transfer Assist Level : Assist, minimal KYLE LAND OTR/L - 02/03/2021 15:06 EST Functional Mobility Mobility Grid Sit to Stand : Rehab Minimal assistance (Comment: x2 [KYLE LAND, OTR/L - 02/03/2021 15:06 EST] ) Bed to Chair : Rehab Minimal assistance (Comment: x2 [KYLE LAND, OTR/L - 02/03/2021 15:06 EST] ) Stand to Sit : Rehab Minimal assistance (Comment: x2 [KYLE LAND, OTR/L - 02/03/2021 15:06 EST] ) KYLE LAND OTR/L - 02/03/2021 15:06 EST Plan of Care, OT OT Tx Plan/Goals Established w Patient : Yes KYLE LAND, OTR/L - 02/03/2021 15:06 EST Halfway Goals, OT Grooming LTG Grid Goal #1 Activity : Grooming Assist : Independent, modified Date to Meet : 02/16/2021 EST Goal Status : Initial goal KYLE LAND OTR/L - 02/03/2021 15:06 EST Dressing, Lower Body LTG Grid Goal #1 Activity : Dressing, Lower Body Assist : Independent, modified Date to Meet : 02/16/2021 EST Goal Status : Initial goal KYLE LAND OTR/L - 02/03/2021 15:06 EST Toilet Transfer LTG Grid Goal #1 Activity : Toilet Transfer, Ambulatory Assist : Independent, modified Date to Meet : 02/16/2021 EST Goal Status : Progressing, continue KYLE LAND OTR/Dieter - 02/03/2021 15:06 EST Bed Mobility/ Bed Transfer LTG Grid Goal #1 Activity : Bed Mobility/Bed Transfer Assist : Independent, modified Date to Meet : 02/16/2021 EST Goal Status : Progressing, continue KYLE LAND OTR/Dieter - 02/03/2021 15:06 EST Treatment Note Subjective Comment : pt agreeable to tx. Patient's Response to Treatment : pt tolerated session well. Additional Objective Information : pt supine in bed upon arrival requesting bed gillis upon arrival. Pt agreeable to use BSC. Pt min a for bed mobility to EOB. pt min a X2 VIRTUALIZATION ARCHITECT for tx to BSC. Increased needed for pt to have BM. Pt min a to stand and max a for toileting hygiene. Pt min x2 VIRTUALIZATION ARCHITECT for transfer to recliner. Pt educated on UE exericeses to complete in all planes. Left with call light in reach and all other needs met. Assessment : pt progressing. Will continue to benefit from skilled OT> Plan for Treatment : cont per poc. KYLE LAND OTR/Dieter - 02/03/2021 15:06 EST Anticipated Discharge Needs, OT/PT Anticipated Discharge to : Home, with home health, Unit, rehabilitation KYLE LAND OTR/Dieter - 02/03/2021 15:[address] [facility] OT Charges OT Selfcare/Hm Mgmt Ea 15 Min : 1 OT Ther Activities Ea 15 Min : 1 KYLE LAND OTR/Dieter - 02/03/2021 15:06 EST documented in this encounter Plan of Treatment Not on file documented as of this encounter Visit Diagnoses Not on filedocumented in this encounter
--- OUTSIDE RECORDS SUMMARY | 2024-02-15 23:02 | XMS_ITS | Encounter Summary ---
Author Organization [employer] Address [address] [place] [address] Care Team Providers Care Veterinary Laboratory Diagnostician Name Role Phone Unavailable Primary Care Provider Unavailabl e Encounter Details Date Type Department Care Team (Late st Contact Info) Description 02/03/2021 Transcribed Document [facility] [place] [facility] [place] [address] ProviderDick MD [address] [place] [address] Social History Tobacco Use Types [...] Conversion Note - Historical ProviderMD - 02/03/2021 5:05 PM CHILD LIFE ASSISTANT Patient: CISCO CAZARES Age: 75 Years Sex: Female : 1945 Subjective At the time of nephrology rounds, she is feeling much better. She is alert and cooperative. She has no active physical complaints. She denies worsening shortness of breath or fevers. She denies chest pain or palpitations. Vital Signs T: 37 ??C TMIN: 36.6 ??C TMAX: 37 ??C HR: 65(Monitored) RR: 28 BP: 154/78 BP: 169/64(Line) SpO2: 100% Oxygen Settings (Last) Oxygen Therapy Mode: Nasal cannula (02/03/21 15:07:00) Oxygen Flow Rate: 2 Liter/Min (02/03/21 15:07:00) Intake & Output Totals Last 24 Hours (7a-7a) Input Total: 2531.1766 mL Output Total: 2475 mL Balance: 56.1766 mL Physical Exam Gen.: Alert, no acute [...] diabetic nephropathy Hypertension Hyperkalemia-resolved Cardiac arrest, improved Chronic kidney disease stage III secondary to diabetic nephropathy and hypertension Her clearance has improved and is probably near her baseline. She reports that she has had updates from her primary care provider that her kidney function was not normal. However, she is never seen nephrology as an outpatient. We will continue to monitor her clearance, electrolytes and the metabolic sequelae of reduced kidney function. I will defer to pulmonary/hospital medicine regarding her steroid therapy, diabetes control and blood pressure management. Reassured that her electrolytes are stable and she is globally improving. -From a nephrology standpoint, she is okay to leave the critical care setting. Franck Huang M.D. Nephrology Partner with , Dr. Rodriguez and Dr. Malin Note dictated with Zoomph recognition system Medications amLODIPine, 10 mg= 1 Tab, Oral, Daily Chloraseptic Menthol 1.4% topical spray, 1 [place], Oral, Q2H, PRN cloNIDine, 0.1 mg= 1 [...] Bedtime Lovenox, 30 mg= 0.3 mL, SubCutaneous, [id number] MiraLax, 17 Gram= 1 Packet, Oral, Daily, [...] Oral, BID SOLU-Medrol, 40 mg, IV Push, [id number] Tylenol, 650 mg= 2 Tab, Oral, Q4H, PRN Zofran, 4 mg= 2 mL, IV Push, Q4H, PRN Zosyn + Sodium Chloride 0.9% intravenous solution 50 mL Lab Results Test Name Test Result Date/Time Sodium Level 144 mmol/L 02/03/2021 03:07 EST Potassium Level 4.1 mmol/L 02/03/2021 03:07 EST Potassium Level 3.8 mmol/L 02/02/2021 17:14 EST Chloride Level 118 mmol/L (High) 02/03/2021 03:07 EST Carbon Dioxide Level 21 mmol/L 02/03/2021 03:07 EST Anion Gap 9 02/03/2021 03:07 EST Glucose Level 143 mg/dL (High) 02/03/2021 03:07 EST Blood Urea Nitrogen 43 mg/dL (High) 02/03/2021 03:07 EST Creatinine Level 2.30 mg/dL (High) 02/03/2021 03:07 EST eGFR 25 mL/min/1.73m2 (Low) 02/03/2021 03:07 EST eGFR NonAfrican 21 mL/min/1.73m2 (Low) 02/03/2021 03:07 EST Bun/Creatinine 18.7 02/03/2021 03:07 EST Calcium Level 7.6 mg/dL (Low) 02/03/2021 03:07 EST Protein Total 5.2 Gram/dL (Low) 02/03/2021 03:07 EST Albumin Level 2.4 Gram/dL (Low) 02/03/2021 03:07 EST Globulin 2.8 Gram/dL 02/03/2021 03:07 EST A/G Ratio 0.9 (Low) 02/03/2021 03:07 EST Bilirubin Total 0.5 mg/dL 02/03/2021 03:07 EST Alk Phos 43 Units/Liter 02/03/2021 03:07 EST AST 23 Units/Liter 02/03/2021 03:07 EST ALT 14 Units/Liter 02/03/2021 03:07 EST Magnesium Level 2.2 mg/dL 02/03/2021 03:07 EST Device Comment 1 Notified Nurse RBV 02/03/2021 05:58 EST Glucose POC2 142 mg/dL (High) 02/03/2021 05:58 EST Glucose POC2 207 mg/dL (High) 02/02/2021 20:46 EST Glucose POC2 252 mg/dL (High) 02/02/2021 17:15 EST Lactic Acid Level 0.7 mmol/L 02/03/2021 02:45 EST Calcium Ionized 1.08 mmol/L (Low) 02/03/2021 02:45 EST WBC 7.7 K/uL 02/03/2021 02:45 EST RBC 2.77 Million/uL (Low) 02/03/2021 02:45 EST Hgb 8.4 g/dL (Low) 02/03/2021 02:45 EST Hct 26.1 % (Low) 02/03/2021 02:45 EST MCV 94.2 fL 02/03/2021 02:45 EST MCH 30.3 pg 02/03/2021 02:45 EST MCHC 32.2 Gram/dL 02/03/2021 02:45 EST Platelet Count 214 K/uL 02/03/2021 02:45 EST MPV 10.9 fL 02/03/2021 02:45 EST RDW 16.3 % (High) 02/03/2021 02:45 EST Neutrophil Percent Man 87 % (High) 02/03/2021 02:45 EST Band Percent Man 1 % (Low) 02/03/2021 02:45 EST Lymph Percent Man 6 % (Low) 02/03/2021 02:45 EST Victoria Percent Man 6 % (High) 02/03/2021 02:45 EST Eos Percent Man 0 % 02/03/2021 02:45 EST Baso Percent Man 0 % 02/03/2021 02:45 EST RBC Morphology Abnormal 02/03/2021 02:45 EST Anisocytosis 1+ (Abnormal) 02/03/2021 02:45 EST Poikilocytosis 1+ (Abnormal) 02/03/2021 02:45 EST Hypochromia 1+ (Abnormal) 02/03/2021 02:45 EST Ovalocytes 1+ (Abnormal) 02/03/2021 02:[address] Estimate Adequate 02/03/2021 02:45 EST Procalcitonin 9.29 ng/mL (High) 02/03/2021 03:07 EST Electronically signed by [facility] Conversion Castings Trimmer Cerner at 06/22/2022 7:33 PM CDT documented in this encounter Plan of Treatment Not on file documented as of this encounter Visit Diagnoses Not on filedocumented in this encounter
--- OUTSIDE RECORDS SUMMARY | 2024-02-15 23:02 | XMS_ITS | Encounter Summary ---
Author Organization [employer] Address [address] [place] [address] Care Team Providers Care Blocker Heated Metal Forms Name Role Phone Unavailable Primary Care Provider Unavailabl e Encounter Details Date Type Department Care Team (Late st Contact Info) Description 02/02/2021 Historic Encounter [facility] [address] [place] [address] Provider, [facility] Historical Social History Tobacco Use [...] Procedure Name Priority Date/Time Associated Diagnosis Comments POTASSIUM, SERUM Routine 02/02/2021 5:14 PM EST documented in this encounter Results * POTASSIUM, SERUM (02/02/2021 5:14 PM EST) Potassium Level 3.8 3.5 - 5.1 mmol/L 02/02/2021 10:32 PM EST Blood 02/02/2021 5:14 PM EST 02/02/2021 10:20 PM EST [facility] Historical Provider PATHOLOGY/CYTOLOGY JEFFREY MERIDA Final Result [facility] [address] [phone] documented in this encounter Visit Diagnoses Not on filedocumented in this encounter
--- OUTSIDE RECORDS SUMMARY | 2024-02-15 23:02 | XMS_ITS | Encounter Summary ---
Author Organization [employer] Address [address] [place] [address] Care Team Providers Care Helper Electrical Name Role Phone Unavailable Primary Care Provider Unavailabl e Encounter Details Date Type Department Care Team (Late st Contact Info) Description 02/02/2021 Transcribed Document [facility] Family Medicine [facility] [place] [address] ProviderDick MD [address] [place] [address] Social History Tobacco Use Types Packs/Day [...] Conversion Note - Historical Provider, - 02/02/2021 1:43 PM RURAL MAIL CARRIER Treatment Intervention, PT Entered On: 02/04/2021 17:13 EST Performed On: 02/04/2021 11:04 EST by ROBERTA HILL PT General Information, PT Visit Type, PT : Treatment Note Patient Orders : Order Date Order Ordering 01/29/2021 22:39 PT Evaluation and Treatment Ordered By: CHRISTIANO CABEZAS DO-INT 02/01/2021 09:20 PT Evaluation and Treatment Ordered By: CRISTINE RAMEY APRN 02/02/2021 13:43 PT Additional Treatment Ordered By: LUCIANO GOMEZ, LUISANA Active Diagnoses : No Qualifying Diagnoses Therapy Diagnosis, PT : Decreased mobility due to cardiac arrest while doing cardiac stress test. Admission Date : 01/29/2021 22:07 Co-treated by, PT : Occupational Therapist Personal Devices : Personal Devices Hair piece/wig Assistive Devices : Assistive Devices No Devices Recorded Precautions in Place : Fall prevention measures SERGIO ROBERTA, PT - 02/04/2021 17:06 EST General Status Patient Received Status : Supine in bed Treatment Start Time : 02/04/2021 10:36 EST Patient Left Status : Up in chair, RN/PCT informed, Communication board completed, All needs met and within reach RN/PCT Informed Comment : yes per RN Donna Treatment End Time : 02/04/2021 11:04 EST Treatment Time : 28 Minute(s) Actual Treatment Time : 28 Minute(s) ROBERTA HILL, PT - 02/04/2021 17:06 EST Therapeutic Activities Transfer Activities Grid Activity #1 Activities : Transfer, commode (Comment: supervision for supine to sit to stand and pivot to BSC, independent with self cleansing [ROBERAT HILL, PT - 02/04/2021 17:06 EST] ) ROBERTA HILL, PT - 02/04/2021 17:06 EST Functional Mobility Mobility Grid Bed Roll Right : Supervision/set-up Bed Scooting : Supervision/set-up Supine to Sit : Supervision/set-up Sit to Stand : Supervision/set-up Stand to Sit : Supervision/set-up ROBERTA HILL, PT - 02/04/2021 17:06 EST Bed Mobility Scooting Device : Rails Supine to Sit Device : Rails Sit to Stand Device : Belt, gait, Walker, front wheel Stand to Sit Device : Belt, gait, Rails, Walker, front wheel ROBERTA HILL, PT - 02/04/2021 17:06 EST Gait Training/Assessment, PT Weight Bearing Status : Full Gait Assistance Level : Supervision Walking Distance : approx 240 ft Ambulatory Devices : Gait belt, Walker, front wheel, Other: IV, O2 at 2 L Gait Deviations : Yes Left Lower Gait Deviation : Wendy, decreased Right Lower Gait Deviation : Wendy, decreased Gait Training Comment : followed by chair for safety ROBERTA HILL, PT - 02/04/2021 17:06 EST Cognitive Treatment, PT Orientation : Oriented x 4 Safety/Judgment Findings, PT : good Follows Basic Command Findings, PT : yes Attention Findings, PT : alert/present ROBERTA HILL, PT - 02/04/2021 17:06 EST Edu Topics Physical Therapy Education Grid Balance Training : Returns demonstration Bed Mobility Training : Returns demonstration Gait Training : Returns demonstration, Needs reinforcement Role of Physical Therapy : Verbalizes understanding Safety : Returns demonstration Therapeutic Exercises : Verbalizes understanding, Needs reinforcement Transfer Training : Returns demonstration Use of Assistive Device : Returns demonstration ROBERTA HILL, PT - 02/04/2021 17:06 EST Plan of Care, PT PT Tx Plan/Goals Established w Patient : Yes SERGIO ROBERTA, PT - 02/04/2021 17:06 EST Short Term Goals Mobility/Bed Mobility STG PT Grid Goal #1 Goal #2 Activity : Supine to sit Sit to stand Assist : Supervision or set-up Assist, minimal Equipment : Rail, bed Walker, front wheel Date to Meet : 02/09/2021 EST 02/09/2021 EST Goal Status : Goal met Goal met Date Met : 02/04/2021 EST 02/04/2021 EST ROBERTA HILL, PT - 02/04/2021 17:06 EST ROBERTA HILL, PT - 02/04/2021 17:06 EST Ambulation STG Grid Goal #1 Device : Walker, front wheel Distance : 50'[ Assist : Assist, minimal Date to Meet : 02/09/2021 EST Goal Status : Goal met Date Met : 02/04/2021 EST ROBERTA HILL, PT - 02/04/2021 17:06 EST [facility] Goals Mobility/Bed Mobility LTG PT Grid Goal #1 Activity : Sit to stand Assist : Independent, modified Equipment : Walker, front wheel Date to Meet : 02/16/2021 EST Goal Status : Progressing, continue ROBERTA HILL, PT - 02/04/2021 17:06 EST Ambulation LTG Grid Goal #1 Device : Walker, front wheel Distance : 375' Assist : Supervision or set-up Date to Meet : 02/16/2021 EST Goal Status : Progressing, continue ROBERTA HILL, PT - 02/04/2021 17:06 EST Treatment Note Subjective Comment : agreed to PTx/OTx I need to go to the bathroom Patient's Response to Treatment : good Assessment : good effort and katherine for first walk at >200 ft !!! all STGs met as of today working on LTGs for mod independent mobility good candidate for home with home health IF family can stay with her a few days as she normally lives alone Plan for Treatment : cont POC ROBERTA HILL, PT - 02/04/2021 17:06 EST Pain Assessment Pain Scaled Used : 0-10 Pain scale Pain Score Pre-Intervention : 0 ROBERTA HILL, PT - 02/04/2021 17:06 EST Image 1 - Images currently included in the form version of this document have not been included in the text rendition version of the form. Anticipated Discharge Needs, OT/PT Anticipated Discharge to : Home, with home health Recommend Continued Therapy at Discharge : Yes ROBERTA HILL, PT - 02/04/2021 17:06 EST [place] PT Charges PT Therap. Exercise 15 min : 1 PT Ther Activities Ea 15 Min : 1 ROBERTA HILL, PT - 02/04/2021 17:06 EST Electronically signed by [facility] Conversion Geology Professor Cerner at 06/28/2022 1:08 PM CDT documented in this encounter Plan of Treatment Not on file documented as of this encounter Visit Diagnoses Not on filedocumented in this encounter
--- OUTSIDE RECORDS SUMMARY | 2024-02-15 23:02 | XMS_ITS | Encounter Summary ---
Author Organization [employer] Address [address] [place] [address] Care Team Providers Care Sql Programmer Analyst Name Role Phone Unavailable Primary Care Provider Unavailabl e Encounter Details Date Type Department Care Team (Late st Contact Info) Description 02/02/2021 Historic Encounter [facility] [address] [place] [address] Provider, [facility] Historical Social History Tobacco Use [...] Priority Date/Time Associated Diagnosis Comments MAGNESIUM LEVEL ([facility] DATA CONV) Routine 02/02/2021 3:24 AM EST documented in this encounter Results * MAGNESIUM LEVEL ([facility] DATA CONV) (02/02/2021 3:24 AM EST) Magnesium Level 2.1 1.5 - 2.4 mg/dL 02/02/2021 9:05 AM EST Blood 02/02/2021 3:24 AM EST 02/02/2021 8:32 AM EST [facility] Historical Provider LAB BLOOD ORDERABLES Fi nal Result [facility] [address] [place], [place] [address] [phone] documented in this encounter Visit Diagnoses Not on filedocumented in this encounter
--- OUTSIDE RECORDS SUMMARY | 2024-02-15 23:02 | XMS_ITS | Encounter Summary ---
Author Organization [employer] Address [address] [place] [address] Care Team Providers Care Family And Consumer Sciences Teacher Name Role Phone Unavailable Primary Care Provider Unavailabl e Encounter Details Date Type Department Care Team (Late st Contact Info) Description 02/02/2021 Historic Encounter [address] [address] ProviderFredrick Historical Social History Tobacco [...] Associated Diagnosis Comments CMP COMPREHENSIVE METABOLIC PANEL ([facility] DATA CONV) Routine 02/02/2021 3:24 AM EST documented in this encounter Results * (ABNORMAL) CMP COMPREHENSIVE METABOLIC PANEL ([facility] BK DATA CONV) (02/02/2021 3:24 AM EST) Sodium Level 146 136 - 146 mmol/L 02/02/2021 9:05 AM EST Potassium Level 3.7 3.5 - 5.1 mmol/L 02/02/2021 9:05 AM EST Chloride Level 118(H) 102 - 112 mmol/L 02/02/2021 9:05 AM EST Carbon Dioxide Level 21 21 - 32 mmol/L 02/02/2021 9:05 AM EST Anion Gap 11 9 - 20 02/02/2021 9:05 AM EST Calcium Level 7.6(L) 8.4 - 10.1 mg/dL 02/02/2021 9:05 AM EST Glucose Level 203(H) 74 - 106 mg/dL 02/02/2021 9:05 AM EST Comment: [facility] has become aware of sulfasalazine and sulfapyridine [...] administration of the drug. Blood Urea Nitrogen 35(H) 7 - 22 mg/dL 02/02/2021 9:05 AM EST Creatinine Level 2.20(H) 0.55 - 1.02 mg/dL 02/02/2021 9:05 AM EST Bun/Creatinine 15.9 8.0 - 20.0 02/02/2021 9:05 AM EST Albumin Level 2.6(L) 3.4 - 5.0 Gram/dL 02/02/2021 9:05 AM EST Protein, Total 5.8(L) 6.4 - 8.2 Gram/dL 02/02/2021 9:05 AM EST A/G Ratio 0.8(L) 1.1 - 2.5 02/02/2021 9:05 AM EST Alk Phos 53 27 - 136 Units/Lit er 02/02/2021 9:05 AM EST ALT 17 13 - 56 Units/Lit er 02/02/2021 9:05 AM EST Comment: [facility] has become aware of sulfasalazine and sulfapyridine [...] prior to administration of the drug. AST 28 5 - 37 Units/Lit er 02/02/2021 9:05 AM EST Comment: [facility] has become aware of sulfasalazine and sulfapyridine [...] Bilirubin, Total 0.5 0.2 - 1.2 mg/dL 02/02/2021 9:05 AM EST Comment: Total bilirubin results may be falsely elevated in patients undergoing treatment with eltrombopag (Promacta). Results should be correlated to clinical symptomology and additional laboratory testing including other markers for liver function, e.g., alanine aminotransferase, aspartate aminotransferase, alkaline phosphatase, and/or lactate dehydrogenase. Globulin 3.2 1.5 - 4.5 Gram/dL 02/02/2021 9:05 AM EST eGFR 27(L) >=60 mL/min/1. 73m2 02/02/2021 9:07 AM EST Comment: GFR <60 suggests chronic kidney disease, if found over 3 month period. GFR <15 indicates renal failure. eGFR NonAfrican 22(L) >=60 mL/min/1. 73m2 02/02/2021 9:07 AM EST Comment: GFR <60 suggests chronic kidney disease, if found over 3 month period. GFR <15 indicates renal failure. Blood 02/02/2021 3:24 AM EST 02/02/2021 8:32 AM EST [facility] Historical Provider LAB BLOOD ORDERABLES Fi nal Result [facility] [address] [phone] documented in this encounter Visit Diagnoses Not on filedocumented in this encounter
--- OUTSIDE RECORDS SUMMARY | 2024-02-15 23:02 | XMS_ITS | Encounter Summary ---
Author Organization [employer] Address [address] [place] [address] Care Team Providers Care Mint Wafer Depositor Name Role Phone Unavailable Primary Care Provider Unavailabl e Encounter Details Date Type Department Care Team (Late st Contact Info) Description 02/03/2021 Historic Encounter [address] [address] Provider [facility] Historical Social History Tobacco [...] Date/Time Associated Diagnosis Comments GLUCOSE-POC Routine 02/03/2021 1:47 PM EST documented in this encounter Results * (ABNORMAL) Glucose, Point of Care (02/03/2021 1:47 PM EST) Glucose POC2 311(H) 70 - 110 mg/dL 02/03/2021 6:47 PM EST [facility] Neonatal Pediatric Nurse [phone] 02/03/2021 6:47 PM EST [facility] Device SN [id number] 02/03/2021 6:47 PM EST [facility] Device Comment1 Protocols Followed 02/03/2021 6:47 PM EST [facility] Blood 02/03/2021 1:47 PM EST 02/03/2021 10:34 PM EST [facility] Historical Provider POINT OF CARE TEST JEFFREY MERIDA Final Result [facility] [address] [place] [address], [facility] [phone] documented in this encounter Visit Diagnoses Not on filedocumented in this encounter
--- OUTSIDE RECORDS SUMMARY | 2024-02-15 23:02 | XMS_ITS | Encounter Summary ---
Author Organization [employer] Address [address] [place] [address] Care Team Providers Care Outside Installer Apprentice Name Role Phone Unavailable Primary Care Provider Unavailabl e Encounter Details Date Type Department Care Team (Late st Contact Info) Description 02/01/2021 Historic Encounter [address] [address] Provider, [facility] Historical Social History Tobacco Use Types [...] Priority Date/Time Associated Diagnosis Comments GLUCOSE-POC Routine 02/01/2021 1:01 PM EST documented in this encounter Results * (ABNORMAL) Glucose, Point of Care (02/01/2021 1:01 PM EST) Glucose POC2 202(H) 70 - 110 mg/dL 02/01/2021 6:01 PM EST [facility] Weatherization Crew Leader [phone] 02/01/2021 6:01 PM EST [facility] Device SN [id number] 02/01/2021 6:01 PM EST [facility] Blood 02/01/2021 1:01 PM EST 02/01/2021 6:19 PM EST [facility] Historical Provider POINT OF CARE TEST ORDSamuel MERIDA Final Result [facility] [address] [phone] documented in this encounter Visit Diagnoses Not on filedocumented in this encounter
--- OUTSIDE RECORDS SUMMARY | 2024-02-15 23:02 | XMS_ITS | Encounter Summary ---
Author Organization [email or web address] Address [address] [place] [address] Care Team Providers Care Change Management Expert Name Role Phone Unavailable Primary Care Provider Unavailabl e Encounter Details Date Type Department Care Team (Late st Contact Info) Description 02/03/2021 Historic Encounter [address] [address] Provider [facility] Historical Social History Tobacco Use [...] Date/Time Associated Diagnosis Comments GLUCOSE-POC Routine 02/03/2021 8:37 PM EST documented in this encounter Results * Glucose, Point of Care (02/03/2021 8:37 PM EST) Glucose POC2 94 70 - 110 mg/dL 02/04/2021 1:37 AM EST [facility] Business Intelligence Consultant [phone] 02/04/2021 1:37 AM EST [facility] Device SN [id number] 02/04/2021 1:37 AM EST [facility] Device Comment1 Notified Nurse RBV 02/04/2021 1:37 AM EST [facility] Blood 02/03/2021 8:37 PM EST 02/04/2021 10:03 AM EST [facility] Historical Provider POINT OF CARE TEST ORDE RABLES Final Result [facility] [address] [phone] documented in this encounter Visit Diagnoses Not on filedocumented in this encounter
--- OUTSIDE RECORDS SUMMARY | 2024-02-15 23:02 | XMS_ITS | Encounter Summary ---
Author Organization [employer] Address [address] [place] [address] Care Team Providers Care Oceanic Sciences Professor Name Role Phone Unavailable Primary Care Provider Unavailabl e Encounter Details Date Type Department Care Team (Late st Contact Info) Description 02/03/2021 Historic Encounter [facility] [address] [place] [address] Provider, [facility] Historical Social History Tobacco Use Types Packs/Day [...] Priority Date/Time Associated Diagnosis Comments CALCIUM IONIZED ([facility] DATA CONV) Routine 02/03/2021 2:45 AM EST documented in this encounter Results * (ABNORMAL) CALCIUM IONIZED ([facility] BK DATA CONV) (02/03/2021 2:45 AM EST) Calcium Ionized 1.08(L) 1.12 - 1.32 mmol/L 02/03/2021 8:06 AM EST [facility] Blood 02/03/2021 2:45 AM EST 02/03/2021 7:53 AM EST us [facility] Historical Provider LAB BLOOD ORDERABLES Fi nal Result [facility] [address] [place], [place] [address] [phone] documented in this encounter Visit Diagnoses Not on filedocumented in this encounter
--- OUTSIDE RECORDS SUMMARY | 2024-02-15 23:02 | XMS_ITS | Encounter Summary ---
Author Organization [employer] Address [address] [place] [address] Care Team Providers Care Mobile Lounge Driver Name Role Phone Unavailable Primary Care Provider Unavailabl e Encounter Details Date Type Department Care Team (Late st Contact Info) Description 02/01/2021 Historic Encounter [address] [address] ProviderFredrick Historical Social History Tobacco [...] Priority Date/Time Associated Diagnosis Comments AUTOMATED DIFFERENTIAL ([facility] DATA CONV) Routine 02/01/2021 2:40 AM EST documented in this encounter Results * (ABNORMAL) AUTOMATED DIFFERENTIAL ([facility] DATA CONV) (02/01/2021 2:40 AM EST) Neut% 90.5(H) 34.0 - 71.0 % 02/01/2021 8:03 AM EST Comment:Smear reviewed by te chnologist. Lymph% 4.0(L) 19.3 - 53.1 % 02/01/2021 8:03 AM EST Blair% 4.1 3.0 - 9.0 % 02/01/2021 8:03 AM EST Eos% 0.0 0.0 - 7.0 % 02/01/2021 8:03 AM EST Baso% 0.2 0.0 - 1.5 % 02/01/2021 8:03 AM EST IG% 1.20(H) 0.00 - 0.60 % 02/01/2021 8:03 AM EST Neut# 13.60(H) 1.56 - 6.13 K/uL 02/01/2021 8:03 AM EST Lymph# 0.60(L) 1.00 - 3.90 x10(3)/uL 02/01/2021 8:03 AM EST Blair# 0.62 0.16 - 1.00 K/uL 02/01/2021 8:03 AM EST Eos# 0.00 0.00 - 0.80 x10(3)/uL 02/01/2021 8:03 AM EST Baso# 0.03 0.00 - 0.20 x10(3)/uL 02/01/2021 8:03 AM EST IG# 0.18(H) 0.00 - 0.05 x10(3)/uL 02/01/2021 8:03 AM EST Blood 02/01/2021 2:40 AM EST 02/01/2021 8:01 AM EST Narrative [facility] - 02/01/2021 8:30 AM EST Added by Discern Expert us Sle Historical Provider LAB BLOOD ORDERABLES Fi nal Result [facility] [address] [place] [address], [facility] [phone] documented in this encounter Visit Diagnoses Not on filedocumented in this encounter
--- OUTSIDE RECORDS SUMMARY | 2024-02-15 23:02 | XMS_ITS | Encounter Summary ---
Author Organization [employer] Address [address] [place] [address] Care Team Providers Care Family Protection Specialist Name Role Phone Unavailable Primary Care Provider Unavailabl e Encounter Details Date Type Department Care Team (Late st Contact Info) Description 02/02/2021 Transcribed Document [facility] Pulm & Critical Care Medicine [address] [place] [address] [address] [place] [address] Bianka Birmingham MD [address] [facility] [address] [place] [address] Social History Tobacco Use Types Packs/Day Years Used Date Smoking Tobacco: Never Assessed Comments Unknown Sex and Gender Information Value Date Recorded Sex Assigned at Female 09/02/2021 8:59 PM CDT Legal Sex Female 8:59 PM CDT Gender Identity Female 09/02/2021 8:59 PM CDT Sexual Orientation Not on file documented as of this encounter Miscellaneous Notes * Cerner Conversion Note - Bianka Birmingham MD - 02/02/2021 3:50 PM EST Patient: CISCO CAZARES Age: 75 years Sex: Female : 1945 Associated Diagnoses: None Author: BIANKA BIRMINGHAM MD Basic Information Date of consult: 01/29/21 [...] Time of documentation of the code was 1516. Patient did regain a perfusing rhythm which was found to be atrial fibrillation by their documentation. She had ineffective respirations and was intubated and placed on mechanical ventilation. She was apparently hypertensive and placed on nitroglycerin infusion as well as amiodarone infusion for atrial fibrillation. Patient was transferred to [facility] for further evaluation and higher level of [...] function improving. Currently afebrile. Chest x-ray reviewed, no significant change in bilateral infiltrates. CXR is worse, passed FEES ICU day: 6 TLDL: 01/30 Intake & Output Totals Last 24 Hours (7a-7a) Intake (29 Events) Medications (972.02 mL) Output (2 Events) Sanchez Catheter (650 mL) Input Total: 972.02 mL Output Total: 650 mL Balance: 322.02 mL Review of Systems Constitutional: Weakness, Fatigue, No fever, No chills, No sweats. Eye: No recent visual problem. Ear/Nose/Mouth/Throat: No nasal congestion, No sore throat. Respiratory: Shortness of breath, Cough, Sputum production, needding bipap . Cardiovascular: No chest pain. Gastrointestinal: No nausea, [...] Ordered Chloraseptic Menthol 1.4% topical spray: 1 [place], Oral, Q2H, PRN: Sore Throat Dextrose 50% injection: 12.5 Gram, IV Push, [...] Oral, At Bedtime Lovenox: 30 mg, SubCutaneous, [id number] MiraLax: 17 Gram, Oral, Daily, PRN: Constipation NORepinephrine injection 8 mg + NaCl 0.9% for drip 250 mL: TITRATE, IntraVENous Normal Saline Flush: 10 mL, IV Push, Q12H Normal Saline Flush: 10 mL, IV Push, See Comment, PRN: IV Use Pepcid: 20 mg, Oral, Daily SOLU-Medrol: 40 mg, IV Push, [id number] Senokot: 8.6 mg, Oral, BID Tylenol: 650 mg, Oral, Q4H, PRN: Fever Zofran: 4 mg, IV Push, Q4H, PRN: Nausea Zosyn + Sodium Chloride 0.9% intravenous solution 50 mL: 2.25 Gram, 16.67 mL/Hr, IV Piggyback, Q8HInt amLODIPine: 10 mg, Oral, Daily carvedilol: 12.5 mg, Oral, BID cloNIDine: 0.1 mg, Oral, Q8H docusate sodium: 100 mg, Oral, BID doxycycline + Sodium Chloride 0.9% intravenous solution 100 mL: 100 mg, 50 mL/Hr, IV Piggyback, [id number] glucagon: 1 mg, IntraMuscular, Q15Min, PRN: Other (See Comment) glucose 4 g oral tablet, chewable: 16 Gram, 4 Tab, Chew, Q15Min, PRN: Other (See Comment) glucose 40% oral gel: 15 Gram, 37.5 mL, Oral, Q15Min, PRN: Other (See Comment) hydrALAZINE: 10 mg, IV Push, Q3H, PRN: Hypertension hydrOXYzine hydrochloride: 10 mg, Oral, Q6H, PRN: Anxiety insulin regular sliding scale: Scale B, SubCutaneous, Q6H isosorbide mononitrate: 90 mg, Oral, Daily labetalol: 10 mg, IV Push, Q1H, PRN: Hypertension lactobacillus acidophilus: 1 Cap, Oral, BID levothyroxine: 100 mcg, Oral, Daily niCARdipine injection 25 mg + NaCl 0.9% for drip 250 mL: TITRATE, IntraVENous Documented Medications Documented amLODIPine 2.5 mg oral tablet: 0 Refill(s) clonidine 0.3 mg oral tablet: 0 Refill(s) furosemide 40 mg oral tablet: 0 Refill(s) glipiZIDE 10 mg oral tablet, extended release: 0 Refill(s) isosorbide mononitrate 60 mg oral tablet, extended release: 0 Refill(s) levothyroxine 100 mcg (0.1 mg) oral tablet: 1 Tab, Oral, Daily, 60 Tab, 0 Refill(s) lisinopril 20 mg oral tablet: Oral, BID, 0 Refill(s) pioglitazone 45 mg oral tablet: 0 Refill(s) simvastatin 20 mg oral tablet: Oral, At Bedtime, 0 Refill(s) sodium polystyrene sulfonate 15 g/60 mL oral and rectal suspension: 0 Refill(s), Medications (34) Active Scheduled: (16) #NaCl 0.9% *FLUSH* inj 10 mL 10 mL, IV Push, Q12H amLODIPine 10 mg tab 10 mg 1 Tab, Oral, Daily atorvastatin 40 mg tab 40 mg 1 Tab, Oral, At Bedtime carvedilol 12.5 mg tab 12.5 mg 1 Tab, Oral, BID cloNIDine 0.1 mg tab 0.1 mg 1 Tab, Oral, Q8H docusate sodium 100 mg cap 100 mg 1 Cap, Oral, BID doxycycline hyclate + NaCl 0.9% 100 mL 100 mg, IV Piggyback, [id number] enoxaparin 30 mg/0.3 ml inj 30 mg 0.3 mL, SubCutaneous, [id number] famotidine 20 mg tab 20 mg 1 Tab, Oral, Daily insulin regular 1 unit/0.01 mL inj 3mL Scale B, SubCutaneous, Q6H isosorbide MONOnitrate ER 30 mg tab 90 mg 3 Tab, Oral, Daily lactobacillus acidophilus cap 1 Cap, Oral, BID levothyroxine 100 mcg tab 100 mcg 1 Tab, Oral, Daily methylPREDNISolone SUCCinate 40 mg inj 40 mg, IV Push, [id number] piperacillin-tazobactam + NaCl 0.9% 50 mL 2.25 [...] Push, Q4H phenol 1.4% throat spray 1 [place], Oral, Q2H polyethylene glycol 3350 pwd 17 g pkt 17 Gram 1 Packet, Oral, Daily Problem list: Medical Hypertension / SNOMED CT [id number] / Confirmed, Active Problems (1) Hypertension Physical Examination VS/Measurements Vitals Signs (last 24 hrs) Last Charted Minimum Maximum Temp 98.3 (FEB 02 04:00) 98.3 (FEB 02 04:00) 98.2 (FEB 01 16:00) Apical HR H 111 (FEB 02 09:42) 97 (FEB 01 16:10) H 111 (FEB 02 09:42) Mon HR 81 (FEB 02 13:30) 78 (FEB 02 12:15) 121 (FEB 02 07:00) Resp Rate H 83 (FEB 02 13:30) 14 (FEB 02 12:00) H 83 (FEB 02 13:15) MAP 80 (FEB 02 13:30) 69 (FEB 02 11:30) 103 (FEB 01 18:00) SpO2 98 (FEB 02 13:30) L 83 (FEB 01 18:00) 100 (FEB 02 11:29) General: Alert and oriented, Mild distress, bipap . Eye: Pupils are equal, round and reactive to light, Normal conjunctiva, Exophthalmos. HENT: Normocephalic, Oral mucosa is moist. Neck: Supple, Non-tender, No carotid bruit, No lymphadenopathy. Respiratory: course BS right lung . Cardiovascular: Normal [...] 02) H 15.0 (FEB 01) H 20.8 (NOV ) 7.8 (NOV ) HB L 8.7 (NOV ) L 8.9 (NOV ) L 10.6 (NOV ) L 10.9 (NOV ) HCT L 26.3 (NOV ) L 26.3 (NOV ) L 30.9 (NOV ) L 33.4 (NOV ) Plt 233 (NOV ) 216 (NOV ) 272 (NOV ) 262 (NOV ) Na 146 (NOV ) 141 (NOV ) 140 (NOV ) 138 (NOV ) K 3.7 (FEB 02) 4.1 (NOV ) 4.4 (NOV ) H 5.3 (NOV ) Cl H 118 (FEB 02) 112 (NOV ) 110 (NOV ) 111 (JAN 30) CO2 21 (FEB 02) 23 (NOV ) 22 (NOV ) L 18 (JAN 30) BUN H 35 (FEB 02) H 32 (FEB 01) H 32 (JAN 31) H 30 (JAN 30) Cr H 2.20 (FEB 02) H 2.30 (FEB 01) H 2.60 (NOV ) H 2.50 (NOV ) Glu R H 203 (FEB 02) H 177 (FEB 01) H 182 (JAN 31) H 222 (JAN 30) Ca L 7.6 (FEB 02) L 7.9 (NOV ) 9.0 (NOV ) 8.4 (NOV ) Lactic 1.2 (FEB 02) 1.7 (JAN 30) C 3.3 (JAN 30) C 5.0 (NOV ) PT H 12.5 (NOV ) INR 1.2 (NOV 24) PTT 31.8 (NOV ) AST 28 (NOV ) 28 (NOV ) 29 (NOV ) 21 (NOV ) ALT 17 (NOV ) 13 (NOV ) L 11 (NOV ) L 11 (NOV ) ALK P 53 (NOV ) 50 (NOV ) 55 (NOV ) 64 (NOV ) T Bili 0.5 (NOV ) 0.5 (NOV ) 0.5 (NOV ) 0.6 (NOV ) PTN L 5.8 (NOV ) L 5.5 (NOV ) L 6.1 (NOV ) L 5.9 (NOV ) ALB L 2.6 (FEB 02) L 2.4 (FEB 01) L 2.8 (JAN 30) L 2.8 (JAN 30) Troponin C 0.771 (JAN 29) . Radiology Results (Last 48 hours) [id number] -- 01/29/2021 22:07 CR Chest 1 Vw [...] sec to CP arrest/unclear time to ROSC Unclear if the patient had aspiration in [...] aspiration Non smoker Cardiovascular PEA arrest at [facility], unknown time, brief - most probable respiratory [...] CT head with no acute abnormalities at [facility] 01/29 1600 Acute encephalopathy/resolved . Plan: Pulm and CCM Attending Note: I have performed personally face to face diagnostic evaluation of this patient, I reviewed Labs as well as Radiology data and Medications, I discussed with allied staff patient???s condition and discussed findings, I formulated above diagnoses/impression and plan . Patient requires a high complexity of decision making for assessment. Overall my opinion and recommendations are: Patient experienced brief cardiopulmonary arrest at [facility]. I believe given the provided information this was most likely a hypoxemic/respiratory arrest. The code was documented at approximately 1500. Patient had CT scan of the head that was negative for intracranial abnormality. She does have bilateral infiltrates consistent with pneumonia probable aspiration. Patient was transferred to [facility] for further evaluation. Patient was extubated successfully 01/31, her bilateral infiltrate has improved on chest x-ray. BAL culture was negative continue Zosyn/doxy pending cultures we will stop Zyvox.. Supplemental O2 to maintain sats >94% Hemodynamics: Stable off pressors, hypertensive at times Will have RN verify patient's home medications and restart today (will hold lisinopril in setting of TAYLOR) wean Cardene to off Nrovasc change to 10 mg daily clonidine 0.1mg TID coreg increase to 12.5 mg bid continue isosorbide monitrite May use hydroxyzine 10mg PO q6H PRN for anxiety Solumerol 40mg IV q12 ->> decrease to 40 daily Blood culture pending -NGTD Sputum culture Follow BAL MRSA screen pending Antibiotics: On Zosyn 2.25g IV q8, doxycycline 100mg IV q12 and stop Zyvox continue will deescalate per cx start free water 200 ml q 4 x 1 day stop IVF bumex 2 mg IV x 1 and metolazone 5 mg x 1 Renal is following Will have PT/OT see patient today Speech therapy following, passed Dietary following Glycemic control: SSIq6 Levothyroxine 100mcg daily (home dose) Prophylaxis: Pepcid/Lovenox sq Keep in ICU CODE STATUS: Full Disposition: ICU prog : guarded cct 45 mins documented in this encounter Plan of Treatment Not on file documented as of this encounter Visit Diagnoses Not on filedocumented in this encounter
--- OUTSIDE RECORDS SUMMARY | 2024-02-15 23:02 | XMS_ITS | Encounter Summary ---
Author Organization [employer] Address [address] [place] [address] Care Team Providers Care Historical Guide Name Role Phone Unavailable Primary Care Provider Unavailabl e Encounter Details Date Type Department Care Team (Late st Contact Info) Description 02/03/2021 Historic Encounter [address] [address] ProviderFredrick Historical Social History Tobacco [...] Procedure Name Priority Date/Time Associated Diagnosis Comments DIFFERENTIAL MANUAL ([facility] DATA CONV) Routine 02/03/2021 2:45 AM EST documented in this encounter Results * (ABNORMAL) DIFFERENTIAL MANUAL ([facility] DATA CONV) (02/03/2021 2:45 AM EST) RBC Morphology Abnormal 02/03/2021 8:[address] Estimate Adequate Adequate 02/03/2021 8:30 AM EST Neutrophil Percent Man 87(H) 50 - 65 % 02/03/2021 8:30 AM EST Band Percent Man 1(L) 5 - 11 % 02/04/20 21 8:30 AM EST Lymph Percent Man 6(L) 24 - 44 % 021 8:30 AM EST [place] Percent Man 6(H) 4 - 5 % 02/04/20 21 8:30 AM EST Eos Percent Man 0 0 - 3 % 8:30 AM EST Baso Percent Man 0 0 - 1 % 02/04/20 8:30 AM EST Anisocytosis 1+(A) 02/03/2021 8:30 AM EST Poikilocytosis 1+(A) 02/03/2021 8:30 AM EST Hypochromia 1+(A) 02/03/2021 8:30 AM EST Ovalocytes 1+(A) 02/03/2021 8:30 AM EST Blood 02/03/2021 2:45 AM EST 02/03/2021 7:53 AM EST Narrative [facility] - 02/03/2021 8:30 AM EST Added by Discern Expert [facility] Historical Provider LAB BLOOD ORDERABLES Fi nal Result [facility] [address] [phone] documented in this encounter Visit Diagnoses Not on filedocumented in this encounter
--- OUTSIDE RECORDS SUMMARY | 2024-02-15 23:02 | XMS_ITS | Encounter Summary ---
Author Organization [employer] Address [address] [place] [address] Care Team Providers Care Sales Service Promoter Name Role Phone Unavailable Primary Care Provider Unavailabl e Encounter Details Date Type Department Care Team (Late st Contact Info) Description 02/03/2021 Historic Encounter [address] [address] Fredrick Spivey Historical Social History Tobacco Use Types Packs/Day [...] Name Priority Date/Time Associated Diagnosis Comments CBC W/MANUAL DIFF ([facility]) Routine 02/03/2021 2:45 AM EST documented in this encounter Results * (ABNORMAL) CBC w Manual Diff ([facility]) (02/03/2021 2:45 AM EST) WBC 7.7 4.5 - 10.5 K/uL 02/03/2021 7:57 AM EST Comment:Released without rep eat. RBC 2.77(L) 3.93 - 5.22 Million/uL 02/03/2021 7:57 AM EST Hgb 8.4(L) 11.2 - 15.7 g/dL 02/03/2021 7:57 AM EST Hct 26.1(L) 34.1 - 44.9 % 02/03/2021 7:57 AM EST MCV 94.2 79.0 - 94.8 fL 02/03/2021 7:57 AM EST MCH 30.3 25.6 - 32.2 pg 02/03/2021 7:57 AM EST MCHC 32.2 32.2 - 36.5 Gram/dL 02/03/2021 7:57 AM EST RDW 16.3(H) 11.7 - 14.9 % 02/03/2021 7:57 AM EST Platelet Count 214 163 - 369 K/uL 02/03/2021 7:57 AM EST MPV 10.9 9.4 - 12.4 fL 02/03/2021 7:57 AM EST Man Diff Req Yes 02/03/2021 7:58 AM EST Blood 02/03/2021 2:45 AM EST 02/03/2021 7:53 AM EST [facility] Historical Provider LAB BLOOD ORDERABLES Fi nal Result [facility] [address] [phone] documented in this encounter Visit Diagnoses Not on filedocumented in this encounter
--- OUTSIDE RECORDS SUMMARY | 2024-02-15 23:02 | XMS_ITS | Encounter Summary ---
Author Organization [employer] Address [address] [place] [address] Care Team Providers Care Director Marketing Name Role Phone Unavailable Primary Care Provider Unavailabl e Encounter Details Date Type Department Care Team (Late st Contact Info) Description 02/03/2021 Transcribed Document [facility] [address] ProviderDick MD [address] [place] [address] Social History Tobacco Use Types [...] Conversion Note - Historical ProviderMD - 02/03/2021 9:20 AM VAT OPERATOR On Going Discharge Planning Entered On: 02/03/2021 9:27 EST Performed On: 02/03/2021 9:20 EST by JANET MADRID, RN-Drug Enforcement AgentBlow Torch Operator Progress Note Discharge Arrangements : Patient Post-Acute Information Patient Name: CISCO CAZARES Gender: Female : [birth year] Age: 75 Years No Post-Acute Placement(s) Listed No Post-Acute Service(s) Listed No [place] Referral(s) Listed Discharge Options Discussed with Patient : Acute rehabilitation, Home Health, [facility] JANET MADRID, RN-Drug Enforcement Agent - 02/03/2021 9:20 EST Narrative Progress Note Narrative Progress Note : HD# 5. elos: 5. RAR: moderate 57 pea arrest during stress test. acute hypoxic resp failure. irene. htn. diabetes. covid 19: negative 01-30 extubated 01-31. bipap 40%/02 2L nc. doxycycline/zosyn iv. solu medrol iv. PT/OT: to chair. ST: taking po. pt resides in [facility]. she lives alone. adl independent. no dme, hh or rehab stays dcp: spoke with Ms. Cazares. discussed rehab: she is agreeable to referrals to [facility]. he ultimate goal would be home with home health. no poa/hcs. single. 1 child. Eunice, daughter, legal next of kin: [phone] spoke with lisseth Moy RN. JANET MADRID, RN-Drug Enforcement Agent - 02/03/2021 9:20 EST Electronically signed by [facility] Conversion Social Services Aide Cerner at 06/22/2022 7:14 PM CDT documented in this encounter Plan of Treatment Not on file documented as of this encounter Visit Diagnoses Not on filedocumented in this encounter
--- OUTSIDE RECORDS SUMMARY | 2024-02-15 23:02 | XMS_ITS | Encounter Summary ---
Author Organization [employer] Address [address] [place] [address] Care Team Providers Care Services Manager Name Role Phone Unavailable Primary Care Provider Unavailabl e Encounter Details Date Type Department Care Team (Late st Contact Info) Description 02/02/2021 Historic Encounter [facility] [address] [place] [address] Provider, [facility] Historical Social History Tobacco Use Types [...] Procedure Name Priority Date/Time Associated Diagnosis Comments LEGIONELLA ANTIGEN, URINE Routine 02/02/2021 5:14 PM EST documented in this encounter Results * Legionella antigen, urine (02/02/2021 5:14 PM EST) Legionella Urine Ag Negative Negative 02/04/2021 1:36 AM EST Internal QC Lot No. [id number]/04/2021 1:36 AM EST Internal QC Result PASS 02/04/2021 1:36 AM EST Urine 02/02/2021 5:14 PM EST 02/03/2021 3:[address] [facility] Historical Provider URINE ORDERABLES Final Result [facility] [address] [place], [place] [address] [place] [address] documented in this encounter Visit Diagnoses Not on filedocumented in this encounter
--- OUTSIDE RECORDS SUMMARY | 2024-02-15 23:02 | XMS_ITS | Encounter Summary ---
Author Organization [employer] Address [address] [place] [address] Care Team Providers Care Loftsman Name Role Phone Unavailable Primary Care Provider Unavailabl e Encounter Details Date Type Department Care Team (Late st Contact Info) Description 02/02/2021 Transcribed Document [facility] [place] [facility] [place] [address] ProviderDick MD [address] [place] [address] Social History Tobacco Use Types [...] Conversion Note - Historical ProviderMD - 02/02/2021 8:24 AM BOILER RELINER Discharge Summary, DOCK BUILDER Entered On: 02/02/2021 8:25 EST Performed On: 02/02/2021 8:24 EST by MADELYN COLORADO, DOCK BUILDER Discharge Notation. DOCK BUILDER Dysphagia Treatment After Discharge : No Discharge Diet : Regular Discharge Liquids : Thin Discharge Compensatory Strategies : Slow rate Repeat Instrumental Prior To : Not applicable Discharge Summary Comment, DOCK BUILDER : Pt appears ready to initiate a regular diet. ST to sign off. MADELYN COLORADO SLP - 02/02/2021 8:24 EST Swallow Plan/Goals Swallow LTG Grid DOCK BUILDER Television Engineering Teacher Goal #1 DOCK BUILDER Television Engineering Teacher Goal #2 Swallow LTG : Establish safe oral diet without aspiration Other: Pt goal: home Status : Goal met Date Met : 02/02/2021 EST MADELYN COLORADO SLP - 02/02/2021 8:24 EST MADELYN COLORADO, DOCK BUILDER - 02/02/2021 8:24 EST Swallow Goals Grid Goal #1 Swallow STG : Other: Reeval Related To : Aspiration prevention, Return to oral intake Date to Meet : 02/02/2021 EST Status : Goal met Date Met : 02/02/2021 MADELYN OSORIO, DOCK BUILDER - 02/02/2021 8:24 EST Electronically signed by [facility] Conversion Intermediate Teacher Cerner at 06/22/2022 7:26 PM CDT documented in this encounter Plan of Treatment Not on file documented as of this encounter Visit Diagnoses Not on filedocumented in this encounter
--- OUTSIDE RECORDS SUMMARY | 2024-02-15 23:02 | XMS_ITS | Encounter Summary ---
Author Organization [employer] Address [address] [place] [address] Care Team Providers Care Grades 9 12 Tutor Name Role Phone Unavailable Primary Care Provider Unavailabl e Encounter Details Date Type Department Care Team (Late st Contact Info) Description 02/02/2021 Transcribed Document [facility] [place] [facility] [place] [address] ProviderDick MD [facility] [place] [address] Social History Tobacco Use Types [...] Conversion Note - Historical ProviderMD - 02/02/2021 3:02 PM FULL STACK WEB DEVELOPER Patient: CISCO CAZARES Age: 75 years Sex: Female : 1945 Associated Diagnoses: None Author: JOLIE PAGAN MD-[facility] Subjective Chief complaint. 02/02/21 extubated aake not in distress Health Status Allergies: Allergic Reactions (Selected) No Known Allergies, Allergies (1) Active Reaction No Known Allergies None Documented Current medications: (Selected) Inpatient Medications Ordered Chloraseptic Menthol 1.4% topical spray: 1 [place], Oral, Q2H, PRN: Sore Throat Dextrose 50% [...] Oral, At Bedtime Lovenox: 30 mg, SubCutaneous, [id number] MiraLax: 17 Gram, Oral, Daily, PRN: Constipation NORepinephrine injection 8 mg + NaCl 0.9% for drip 250 mL: TITRATE, IntraVENous Normal Saline Flush: 10 mL, IV Push, Q12H Normal Saline Flush: 10 mL, IV Push, See Comment, PRN: IV Use Pepcid: 20 mg, Oral, Daily SOLU-Medrol: 40 mg, IV Push, [id number] Senokot: 8.6 mg, Oral, BID Tylenol: 650 [...] mL: 100 mg, 50 mL/Hr, IV Piggyback, K29NLin glucagon: 1 mg, IntraMuscular, Q15Min, PRN: Other [...] mL oral and rectal suspension: 0 Refill(s), Home Medications (10) Active amLODIPine 2.5 mg oral tablet clonidine 0.3 mg oral tablet furosemide 40 mg oral tablet glipiZIDE 10 mg oral tablet, extended release isosorbide mononitrate 60 mg oral tablet, extended release levothyroxine 100 mcg (0.1 mg) oral tablet 100 mcg = 1 Tab, Oral, Daily lisinopril 20 mg oral tablet , Oral, BID pioglitazone 45 mg oral tablet simvastatin 20 mg oral tablet , Oral, At Bedtime sodium polystyrene sulfonate 15 g/60 mL oral and rectal suspension , Medications (34) Active Scheduled: (16) #NaCl [...] 0.9% 100 mL 100 mg, IV Piggyback, [id number] enoxaparin 30 mg/0.3 ml inj 30 mg 0.3 mL, SubCutaneous, O77JKgd famotidine 20 mg tab 20 mg 1 Tab, Oral, Daily insulin lispro 1 unit/0.01 mL inj Scale C:, SubCutaneous, AC and at Bedtime isosorbide MONOnitrate ER 30 mg tab 90 mg 3 Tab, Oral, Daily lactobacillus acidophilus cap 1 Cap, Oral, BID levothyroxine 100 mcg tab 100 mcg 1 Tab, Oral, Daily methylPREDNISolone SUCCinate 40 mg inj 40 mg, IV Push, F63ADql piperacillin-tazobactam + NaCl 0.9% 50 mL 2.25 [...] Push, Q4H phenol 1.4% throat spray 1 [place], Oral, Q2H polyethylene glycol 3350 pwd 17 g pkt 17 Gram 1 Packet, Oral, Daily Problem list: Medical Hypertension / SNOMED CT [id number] / Confirmed, Active Problems (1) Hypertension Objective VS/Measurements Vitals Signs (last 24 hrs) Last Charted Minimum Maximum Temp 97.8 (FEB 02 20:00) 97.8 (FEB 02 20:00) 98.7 (FEB 02 00:00) Apical HR 69 (FEB 02 20:47) 69 (FEB 02 20:47) H 111 (FEB 02 09:42) Mon HR 53 (FEB 02 23:15) 51 (FEB 02 22:00) 121 (FEB 02 07:00) Resp Rate H 21 (FEB 02 23:15) 14 (FEB 02 12:00) H 83 (FEB 02 13:15) SBP 122 (FEB 02 22:45) 122 (FEB 02 22:30) 122 (FEB 02 22:30) DBP 60 (FEB 02 22:45) 60 (FEB 02 22:30) 60 (FEB 02 22:30) MAP 61 (FEB 02 23:15) 53 (FEB 02 22:00) 106 (FEB 02 18:00) SpO2 100 (FEB 02 23:15) L 88 (FEB 02 04:00) 100 (FEB 02 11:29) General: Alert and oriented, No acute distress. Eye: Pupils are equal, round and reactive to light, Normal conjunctiva. HENT: Normocephalic. Neck: Supple. Respiratory: Lungs are clear to auscultation, Respirations are non-labored. Cardiovascular: Normal rate, Regular rhythm. Gastrointestinal: Soft, Non-tender. Musculoskeletal: Normal range of motion, Normal strength. Integumentary: Warm. Neurologic: Alert, Oriented. Psychiatric: Not cooperative, Not appropriate mood & affect. Results Review FEB 02 03:24 146 H 118 H 35 / H 203 3.8 21 H 2.20 \ FEB 02 03:24 \ L 8.7 / H 11.6 233 / L 26.3 \ FEB 02 03:24 146 H 118 H 35 / H 203 3.8 21 H 2.20 \ FEB 02 03:24 \ L 8.7 / H 11.6 233 / L 26.3 \ Impression and Plan PEA cardiopulmonary arrest -Occurred at [facility] during a Stress Test with Dr. [...] aak BP control d/w RN disposition tele in am home wednesday time spent 35 min documented in this encounter Plan of Treatment Not on file documented as of this encounter Visit Diagnoses Not on filedocumented in this encounter
--- OUTSIDE RECORDS SUMMARY | 2024-02-15 23:02 | XMS_ITS | Encounter Summary ---
Author Organization [employer] Address [address] [place] [address] Care Team Providers Care Middle School Music Teacher Name Role Phone Unavailable Primary Care Provider Unavailabl e Encounter Details Date Type Department Care Team (Late st Contact Info) Description 02/02/2021 Historic Encounter [address] [address] Provider, [facility] Historical Social History Tobacco Use Types [...] Date/Time Associated Diagnosis Comments GLUCOSE-POC Routine 02/02/2021 8:46 PM EST documented in this encounter Results * (ABNORMAL) Glucose, Point of Care (02/02/2021 8:46 PM EST) Glucose POC2 207(H) 70 - 110 mg/dL 02/03/2021 1:[address] [facility] Vice President Of Consulting Services [id number] 02/03/2021 1:[address] [facility] Device SN [id number] 02/03/2021 1:[address] [facility] Blood 02/02/2021 8:46 PM EST 02/03/2021 1:59 AM EST [facility] Historical Provider POINT OF CARE TEST ORDE MAGNOLIA Final Result [facility] [address] [phone] documented in this encounter Visit Diagnoses Not on filedocumented in this encounter
--- OUTSIDE RECORDS SUMMARY | 2024-02-15 23:02 | XMS_ITS | Encounter Summary ---
Author Organization [employer] Address [address] [place] [address] Care Team Providers Care Tool Grinder Name Role Phone Unavailable Primary Care Provider Unavailabl e Encounter Details Date Type Department Care Team (Late st Contact Info) Description 02/03/2021 Transcribed Document [facility] Pulm & Critical Care Medicine [address] [place] [address] [address] [place] [address] Modesto Lui MD [address] [facility] [address] [place] [address] Social History Tobacco Use Types Packs/Day Years Used Date Smoking Tobacco: Never Assessed Comments Unknown Sex and Gender Information Value Date Recorded Sex Assigned at Female 09/02/2021 8:59 PM CDT Legal Sex Female 8:59 PM CDT Gender Identity Female 09/02/2021 8:59 PM CDT Sexual Orientation Not on file documented as of this encounter Miscellaneous Notes * Cerner Conversion Note - Modesto Lui MD - 02/03/2021 10:22 AM EST Patient: CISCO CAZARES Age: 75 years Sex: Female : 1945 Associated Diagnoses: None Author: MODESTO LUI MD Basic Information Date of consult: 01/29/21 [...] Time of documentation of the code was 151. Patient did regain a perfusing rhythm which was found to be atrial fibrillation by their documentation. She had ineffective respirations and was intubated and placed on mechanical ventilation. She was apparently hypertensive and placed on nitroglycerin infusion as well as amiodarone infusion for atrial fibrillation. Patient was transferred to [facility] for further evaluation and higher level of [...] function worse today. Hemodynamically stable and afebrile. Intake & Output Totals Last 24 Hours (7a-7a) Intake (42 Events) Continuous Infusions (456.6666 mL) Medications (934.51 mL) Oral Intake (1140 mL) Output (8 Events) Sanchez Catheter (2475 mL) Input Total: 2531.1766 mL Output Total: 2475 mL Balance: 56.1766 mL ICU day: 7 TLDL: 01/30/2021 Review [...] Ordered Chloraseptic Menthol 1.4% topical spray: 1 [place], Oral, Q2H, PRN: Sore Throat Core mg, [...] Oral, At Bedtime Lovenox: 30 mg, SubCutaneous, [id number] MiraLax: 17 Gram, Oral, Daily, PRN: Constipation NORepinephrine injection 8 mg + NaCl 0.9% for drip 250 mL: TITRATE, IntraVENous Normal Saline Flush: 10 mL, IV Push, Q12H Normal Saline Flush: 10 mL, IV Push, See Comment, PRN: IV Use Pepcid: 20 mg, Oral, Daily SOLU-Medrol: 40 mg, IV Push, [id number] Senokot: 8.6 mg, Oral, BID Tylenol: 650 [...] mL: 100 mg, 50 mL/Hr, IV Piggyback, F27BXal glucagon: 1 mg, IntraMuscular, Q15Min, PRN: Other [...] 0.9% 100 mL 100 mg, IV Piggyback, G33EJsg enoxaparin 30 mg/0.3 ml inj 30 mg 0.3 mL, SubCutaneous, V62EAnz famotidine 20 mg tab 20 mg 1 Tab, Oral, Daily insulin lispro 1 unit/0.01 mL inj Scale C:, SubCutaneous, AC and at Bedtime isosorbide MONOnitrate ER 30 mg tab 90 mg 3 Tab, Oral, Daily lactobacillus acidophilus cap 1 Cap, Oral, BID levothyroxine 100 mcg tab 100 mcg 1 Tab, Oral, Daily methylPREDNISolone SUCCinate 40 mg inj 40 mg, IV Push, I99HCus piperacillin-tazobactam + NaCl 0.9% 50 mL 2.25 [...] Push, Q4H phenol 1.4% throat spray 1 [place], Oral, Q2H polyethylene glycol 3350 pwd 17 g pkt 17 Gram 1 Packet, Oral, Daily Problem list: Medical Hypertension / SNOMED CT [id number] / Confirmed, Active Problems (1) Hypertension Physical [...] 02 10:15) 100 (FEB 02 11:29) General: Alert and [...] (JAN 31) Plt 214 (FEB 03) 233 (NOV ) 216 (NOV ) 272 (NOV ) Na 144 (FEB 03) 146 (FEB 02) 141 (NOV ) 140 (NOV ) K 4.1 (FEB 03) 3.8 (FEB 02) 3.7 (FEB 02) 4.1 (NOV ) Cl H 118 (FEB 03) H 118 (FEB 02) 112 (NOV ) 110 (NOV ) CO2 21 (FEB 03) 21 (NOV ) 23 (NOV ) 22 (NOV ) BUN H 43 (FEB 03) H 35 (FEB 02) H 32 (FEB 01) H 32 (JAN 31) Cr H 2.30 (FEB 03) H 2.20 (FEB 02) H 2.30 (NOV ) H 2.60 (NOV ) Glu R H 143 (FEB 03) H 203 (FEB 02) H 177 (FEB 01) H 182 (JAN 31) Ca L 7.6 (FEB 03) L 7.6 (FEB 02) L 7.9 (FEB 01) 9.0 (JAN 31) Lactic 0.7 (FEB 03) 1.2 (NOV ) 1.7 (NOV ) C 3.3 (NOV ) PT H 12.5 (NOV ) INR 1.2 (NOV ) PTT 31.8 (JAN 29) AST 23 (FEB [...] 29) . Radiology Results (Last 48 hours) [id number] -- 01/29/2021 22:07 CR Abdomen 1 Vw [...] Dr. Austin Contreras.Transcribed by Tricia Peck PA-C. CT scan of the chest done 01/30/2021 [...] aspiration Non smoker Cardiovascular PEA arrest at [facility], unknown time, brief - most probable respiratory [...] head with no acute abnormalities at [facility] 01/29 1600 Acute encephalopathy/resolved . PLAN: Supplemental O2 to maintain sats >94% Hemodynamics: Stable off pressors, hypertensive at times Will have RN verify patient's home medications and restart today (will hold lisinopril in setting of TAYLOR) wean Cardene to off Nrovasc change to 10 mg daily clonidine 0.1mg TID coreg 12.5 mg bid continue isosorbide monitrite May use hydroxyzine 10mg PO q6H PRN for anxiety Solumerol 40 daily Blood culture pending -NGTD Sputum culture Follow BAL MRSA screen pending Antibiotics: On Zosyn 2.25g IV q8, doxycycline 100mg IV q12 start free water 200 ml q 4 x 1 day stop IVF Renal is following Will have PT/OT see patient Speech therapy following, passed Dietary following Glycemic control: SSIq6 Levothyroxine 100mcg daily (home dose) Prophylaxis: Pepcid/Lovenox sq FULL CODE. Prognosis: Guarded. I saw and examined the patient at bedside, obtained medical history, reviewed labs, diagnostics and chest imaging data. I personally and independently visualized and interpreted chest imaging data on PACS. I formulated diagnosis and treatment plans. I made all medical decisions as above. Complex case and requires high level of medical decision making for management. documented in this encounter Plan of Treatment Not on file documented as of this encounter Visit Diagnoses Not on filedocumented in this encounter
--- OUTSIDE RECORDS SUMMARY | 2024-02-15 23:02 | XMS_ITS | Encounter Summary ---
Author Organization [employer] Address [address] [place] [address] Care Team Providers Care Biomedical Technician Name Role Phone Unavailable Primary Care Provider Unavailabl e Encounter Details Date Type Department Care Team (Late st Contact Info) Description 02/02/2021 Historic Encounter [address] [address] ProviderFredrick Historical Social History Tobacco [...] Priority Date/Time Associated Diagnosis Comments [facility] Routine 02/02/2021 3:24 AM EST documented in this encounter Results * (ABNORMAL) AUTOMATED DIFFERENTIAL ([facility] BKR DATA CONV) (02/02/2021 3:24 AM EST) Neut% 89.3(H) 34.0 - 71.0 % 02/02/2021 8:37 AM EST Lymph% 4.7(L) 19.3 - 53.1 % 02/02/2021 8:37 AM EST [place]% 3.5 3.0 - 9.0 % 02/02/2021 8:37 AM EST Eos% 0.0 0.0 - 7.0 % 02/02/2021 8:37 AM EST Baso% 0.1 0.0 - 1.5 % 02/02/2021 8:37 AM EST IG% 2.40(H) 0.00 - 0.60 % 02/02/2021 8:37 AM EST Neut# 10.31(H) 1.56 - 6.13 K/uL 02/02/2021 8:37 AM EST Lymph# 0.54(L) 1.00 - 3.90 x10(3)/uL 02/02/2021 8:37 AM EST [place]# 0.41 0.16 - 1.00 K/uL 02/02/2021 8:37 AM EST Eos# 0.00 0.00 - 0.80 x10(3)/uL 02/02/2021 8:37 AM EST Baso# 0.01 0.00 - 0.20 x10(3)/uL 02/02/2021 8:37 AM EST IG# 0.28(H) 0.00 - 0.05 x10(3)/uL 02/02/2021 8:37 AM EST Blood 02/02/2021 3:24 AM EST 02/02/2021 8:32 AM EST Narrative [facility] - 02/02/2021 8:40 AM EST Smear reviewed by technologist.Added by Discern Expert us Sleh Historical Provider LAB BLOOD ORDERABLES Fi nal Result [facility] [address] [place] [address], [facility] [phone] documented in this encounter Visit Diagnoses Not on filedocumented in this encounter
--- OUTSIDE RECORDS SUMMARY | 2024-02-15 23:02 | XMS_ITS | Encounter Summary ---
Author Organization [email or web address] Address [address] [place] [address] Care Team Providers Care Medical Records Supervisor Name Role Phone Unavailable Primary Care Provider Unavailabl e Encounter Details Date Type Department Care Team (Late st Contact Info) Description 02/02/2021 Historic Encounter [facility] [address] [place] [address] Provider, [facility] Historical Social History Tobacco Use [...] Date/Time Associated Diagnosis Comments CRP C-REACTIVE PROTEIN ([facility] DATA CONV) Routine 02/02/2021 3:24 AM EST documented in this encounter Results * (ABNORMAL) CRP C-REACTIVE PROTEIN ([facility] BKR DATA CONV) (02/02/2021 3:24 AM EST) CRP 7.09(H) 0.00 - 0.30 mg/dL 02/02/2021 9:06 AM EST Blood 02/02/2021 3:24 AM EST 02/02/2021 8:32 AM EST us [facility] Historical Provider LAB BLOOD ORDERABLES Fi nal Result [facility] [address] [place], [place] [address] [phone] documented in this encounter Visit Diagnoses Not on filedocumented in this encounter
--- OUTSIDE RECORDS SUMMARY | 2024-02-15 23:02 | XMS_ITS | Encounter Summary ---
Author Organization [employer] Address [address] [place] [address] Care Team Providers Care Marketing Development Manager Name Role Phone Unavailable Primary Care Provider Unavailabl e Encounter Details Date Type Department Care Team (Late st Contact Info) Description 02/03/2021 Transcribed Document [facility] [place] [address] ProviderDick MD [address] [place] [address] Social History Tobacco Use Types [...] Conversion Note - Historical ProviderMD - 02/03/2021 7:14 AM PROTECTION ENGINEER Patient: CISCO CAZARES Age: 75 years Sex: Female : 1945 Associated Diagnoses: None Author: NARENDRA JACOBOSN MD Subjective Resting in bed. Off nicardipine drip. No acute overnight events. Health Status Allergies: Allergies (1) Active Reaction No Known Allergies None Documented Current medications: Home Medications (10) Active amLODIPine 2.5 mg [...] 0.9% 100 mL 100 mg, IV Piggyback, T45FJaw enoxaparin 30 mg/0.3 ml inj 30 mg 0.3 mL, SubCutaneous, M42NJbw famotidine 20 mg tab 20 mg 1 Tab, Oral, Daily insulin lispro 1 unit/0.01 mL inj Scale C:, SubCutaneous, AC and at Bedtime isosorbide MONOnitrate ER 30 mg tab 90 mg 3 Tab, Oral, Daily lactobacillus acidophilus cap 1 Cap, Oral, BID levothyroxine 100 mcg tab 100 mcg 1 Tab, Oral, Daily methylPREDNISolone SUCCinate 40 mg inj 40 mg, IV Push, W25LJsu piperacillin-tazobactam + NaCl 0.9% 50 mL 2.25 [...] Push, Q4H phenol 1.4% throat spray 1 [place], Oral, Q2H polyethylene glycol 3350 pwd 17 g pkt 17 Gram 1 Packet, Oral, Daily Problem list: Active Problems (1) Hypertension Objective Intake and Output 24 hour intake: Total 2,530 ml 24 hour output: Total 2,475 ml VS/Measurements Vitals Signs (last 24 hrs) Last Charted Minimum Maximum Temp 98.2 (FEB 03 00:00) 97.8 (FEB 02 20:00) 98.2 (FEB 03 00:00) Apical HR 83 (FEB 03 06:23) 69 (FEB 02 20:47) H 111 (FEB 02 09:42) Mon HR 72 (FEB 03 05:30) 51 (FEB 02 22:00) 116 (FEB 02 10:07) Resp Rate H 41 (FEB 03 05:30) 14 (FEB 02 12:00) H 83 (FEB 02 13:15) SBP 122 (FEB 02 22:45) 122 (FEB 02 22:30) 122 (FEB 02 22:30) DBP 60 (FEB 02 22:45) 60 (FEB 02 22:30) 60 (FEB 02 22:30) MAP 83 (FEB 03 05:30) 53 (FEB 02 22:00) 106 (FEB 02 18:00) SpO2 99 (FEB 03 05:30) 95 (FEB 02 08:15) 100 (FEB 02 11:29) General: Alert and [...] Appropriate mood & affect. Results Review FEB 03 03:07 144 H 118 H 43 / H 143 4.1 21 H 2.30 \ FEB 03 03:07 \ L 8.4 / 7.7 214 / L 26.1 \ Radiology Results (Last 48 hours) [id number] -- 01/29/2021 22:07 CR Abdomen 1 Vw [...] PEA cardiopulmonary arrest during stress test at [facility] 01/29/21 ROSC unknown (brief per report) Pressor support Initial rhythm atrial fibrillation post cardiopulmonary arrest, now SR. Amio drip Heart failure with reduced EF/systolic dysfunction EF calculated at 38%, unclear etiology Uncontrolled hypertension Acute hypoxic respiratory failure secondary underlying pneumonia plus minus HF Ventilation support - extubated 02/01/21 Bilateral infiltrates TAYLOR PLAN; 02/03/2021 Blood pressure improving. Keep off nicardipine [...]
--- OUTSIDE RECORDS SUMMARY | 2024-02-15 23:02 | XMS_ITS | Encounter Summary ---
Author Organization [employer] Address [address] [place] [address] Care Team Providers Care Lap Checker Name Role Phone Unavailable Primary Care Provider Unavailabl e Encounter Details Date Type Department Care Team (Late st Contact Info) Description 02/03/2021 Transcribed Document [facility] Family Medicine formerly [facility] [place] [address] ProviderDick MD formerly [facility] [place] [address] Social History Tobacco Use Types [...] Conversion Note - Historical ProviderMD - 02/03/2021 6:36 PM LAW RESEARCHER Event Note Entered On: 02/03/2021 18:37 EST Performed On: 02/03/2021 18:36 EST by Miri Mosqueda RN-Resource Event Note Event Date/Time : 02/03/2021 18:30 EST Event Location : Assigned room Description of Event : transported pt from CCU via wc with all patients personal belongings to room on 3b; oriented pt to room and floor, call light in reach, 3b phone in reach, wheels of bed locked and bed low; tray table and belongings in reach; pt verbalized understanding; RN agrees with Nohemi REGAN's assessment of pt earlier in shift; no changes. Miri Mosquead RN-Resource - 02/03/2021 18:36 EST documented in this encounter Plan of Treatment Not on file documented as of this encounter Visit Diagnoses Not on filedocumented in this encounter
--- OUTSIDE RECORDS SUMMARY | 2024-02-15 23:02 | XMS_ITS | Encounter Summary ---
Author Organization [employer] Address [address] [place] [address] Care Team Providers Care Business Developer Name Role Phone Unavailable Primary Care Provider Unavailabl e Encounter Details Date Type Department Care Team (Late st Contact Info) Description 02/02/2021 Historic Encounter [facility] [address] [place] [address] Provider, [facility] Historical Social History Tobacco [...] Procedure Name Priority Date/Time Associated Diagnosis Comments ESR SEDIMENTATION RATE AUTO ([facility] BKR DATA CONV) Routine 02/02/2021 3:24 AM EST documented in this encounter Results * (ABNORMAL) ESR SEDIMENTATION RATE AUTO ([facility] BKR DATA CONV) (02/02/2021 3:24 AM EST) Sed Rate Auto 34(H) 0 - 30 mm/Hr 02/02/2021 8:45 AM EST Blood 02/02/2021 3:24 AM EST 02/02/2021 8:32 AM EST us [facility] Historical Provider LAB BLOOD ORDERABLES Fi nal Result [facility] [address] [place], [place] [address] [phone] documented in this encounter Visit Diagnoses Not on filedocumented in this encounter
--- OUTSIDE RECORDS SUMMARY | 2024-02-15 23:02 | XMS_ITS | Encounter Summary ---
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 Patient: CISCO CAZARES Age: 75 years Sex: Female : 1945 Associated Diagnoses: None Author: NARENDRA JACOBSON MD Subjective Resting in bed Health Status Allergies: Allergic Reactions (Selected) No Known Allergies, Allergies (1) Active Reaction No Known Allergies None Documented Current medications: (Selected) Inpatient Medications Ordered Bumex: 2 mg, IV Push, 1-Time Chloraseptic Menthol 1.4% topical spray: 1 [place], Oral, Q2H, PRN: Sore Throat Dextrose 50% [...] Oral, At Bedtime Lovenox: 30 mg, SubCutaneous, [id number] MiraLax: 17 Gram, Oral, Daily, PRN: Constipation NORepinephrine injection 8 mg + NaCl 0.9% for drip 250 mL: TITRATE, IntraVENous Normal Saline Flush: 10 mL, IV Push, Q12H Normal Saline Flush: 10 mL, IV Push, See Comment, PRN: IV Use Pepcid: 20 mg, IV Push, Q12H SOLU-Medrol: 40 mg, IV Push, [id number] Tylenol: 650 mg, Oral, Q4H, PRN: Fever [...] mL: 100 mg, 50 mL/Hr, IV Piggyback, [id number] glucagon: 1 mg, IntraMuscular, Q15Min, PRN: Other [...] Oral, BID levothyroxine: 100 mcg, Oral, Daily metOLazone: 5 mg, Oral, 1-Time niCARdipine injection 25 mg + NaCl 0.9% for drip 250 mL: TITRATE, IntraVENous potassium chloride 10 mEq oral tablet, extended release: 20 mEq, 1 Tab, Oral, 1-Time potassium phosphate: 15 mMole, 5 mL, 63.75 mL/Hr, IV Piggyback, 1-Time senna: 8.8 mg, Oral, BID Documented Medications Documented amLODIPine 2.5 mg oral [...] mL oral and rectal suspension , Medications (38) Active Scheduled: (20) #NaCl 0.9% *FLUSH* inj 10 mL 10 mL, IV Push, Q12H amLODIPine 10 mg tab 10 mg 1 Tab, Oral, Daily atorvastatin 40 mg tab 40 mg 1 Tab, Oral, At Bedtime bumetanide 2.5 mg/10 mL inj 2 mg 8 mL, IV Push, 1-Time carvedilol 12.5 mg tab 12.5 mg 1 Tab, Oral, BID cloNIDine 0.1 mg tab 0.1 mg 1 Tab, Oral, Q8H docusate sod 100 mg/10 mL liq 100 mg 10 mL, Oral, BID doxycycline hyclate + NaCl 0.9% 100 mL 100 mg, IV Piggyback, [id number] enoxaparin 30 mg/0.3 ml inj 30 mg 0.3 mL, SubCutaneous, [id number] famotidine 20 mg/2 mL inj 20 mg 2 mL, IV Push, Q12H insulin regular 1 unit/0.01 mL inj 3mL Scale B, SubCutaneous, Q6H isosorbide MONOnitrate ER 30 mg tab 90 mg 3 Tab, Oral, Daily lactobacillus acidophilus cap 1 Cap, Oral, BID levothyroxine 100 mcg tab 100 mcg 1 Tab, Oral, Daily methylPREDNISolone SUCCinate 40 mg inj 40 mg, IV Push, [id number] metolazone 2.5 mg tab 5 mg 2 Tab, Oral, 1-Time piperacillin-tazobactam + NaCl 0.9% 50 mL 2.25 Gram, IV Piggyback, Q8HInt potassium chloride CR 20 mEq tab 20 mEq 1 Tab, Oral, 1-Time potassium phosphate 15 mMole 5 mL, IV Piggyback, 1-Time senna 8.8 mg/5 mL liq 15 mL 8.8 mg 5 mL, Oral, BID Continuous: (2) niCARdipine 25 mg [...] Push, Q4H phenol 1.4% throat spray 1 [place], Oral, Q2H polyethylene glycol 3350 pwd 17 g pkt 17 Gram 1 Packet, Oral, Daily Problem list: All Problems Hypertension / SNOMED CT 23817191 / Confirmed, Active Problems (1) Hypertension Objective Intake and Output 24 hour intake, 24 hour output VS/Measurements Vitals Signs (last 24 hrs) Last Charted Minimum Maximum Temp 98.3 (FEB 02 04:00) 98.3 (FEB 02 04:00) 98.8 (FEB 01 12:00) Apical HR H 105 (FEB 02 07:59) 97 (FEB 01 16:10) H 119 (FEB [...] 01 18:00) 98 (FEB 01 10:00) General: Intubated and sedated. Eye: Pupils are equal, round and reactive to light. HENT: Normocephalic. Neck: Supple, No carotid bruit. Respiratory: Breath sounds are equal, Symmetrical chest wall expansion. Support: Ventilator. Cardiovascular: Normal rate, Regular rhythm. Gastrointestinal: Soft, Non-distended. Musculoskeletal: No deformity. Integumentary: Warm, Dry. Neurologic: Intubated and sedated. Psychiatric: Intubated and sedated. Results Review NOV 28 03:24 146 H 118 H 35 / H 203 3.7 21 H 2.20 \ FEB 02 03:24 \ L 8.7 / H 11.6 233 / L 26.3 \ Cardiac Markers (Current Encounter/Past 24 Hours) No Cardiac Marker Results Found (Past 24 Hours) Radiology Results (Last 48 hours) [id number] -- 01/29/2021 22:07 CR Chest 1 Vw [...] and dictated by Sienna De La Garza Impression and Plan IMPRESSION: PEA cardiopulmonary arrest during stress test at [facility]. ROSC unknown (brief per report) Pressor support Initial rhythm atrial fibrillation post cardiopulmonary arrest, now SR. Amio drip Heart failure with reduced EF/systolic dysfunction EF calculated at 38%, unclear etiology Uncontrolled hypertension Acute hypoxic respiratory failure Ventilation support Bilateral infiltrates TAYLOR PLAN; 02/02/2021 Patient remains hypertensive and tachycardic. Possible [...]
--- OUTSIDE RECORDS SUMMARY | 2024-02-15 23:02 | XMS_ITS | Encounter Summary ---
Author Organization [employer] Address [address] [place] [address] Care Team Providers Care Day Spa Manager Name Role Phone Unavailable Primary Care Provider Unavailabl e Encounter Details Date Type Department Care Team (Late st Contact Info) Description 02/03/2021 Historic Encounter [address] [address] ProviderFredrick Historical Social History Tobacco [...] Associated Diagnosis Comments CMP COMPREHENSIVE METABOLIC PANEL ([facility] DATA CONV) Routine 02/03/2021 3:07 AM EST documented in this encounter Results * (ABNORMAL) CMP COMPREHENSIVE METABOLIC PANEL ([facility] DATA CONV) (02/03/2021 3:07 AM EST) Sodium Level 144 136 - 146 mmol/L 02/03/2021 8:21 AM EST Potassium Level 4.1 3.5 - 5.1 mmol/L 02/03/2021 8:21 AM EST Chloride Level 118(H) 102 - 112 mmol/L 02/03/2021 8:21 AM EST Carbon Dioxide Level 21 21 - 32 mmol/L 02/03/2021 8:21 AM EST Anion Gap 9 9 - 20 02/03/2021 8:21 AM EST Calcium Level 7.6(L) 8.4 - 10.1 mg/dL 02/03/2021 8:21 AM EST Glucose Level 143(H) 74 - 106 mg/dL 02/03/2021 8:21 AM EST Comment: [employer] has become aware of sulfasalazine and sulfapyridine [...] administration of the drug. Blood Urea Nitrogen 43(H) 7 - 22 mg/dL 02/03/2021 8:21 AM EST Creatinine Level 2.30(H) 0.55 - 1.02 mg/dL 02/03/2021 8:21 AM EST Bun/Creatinine 18.7 8.0 - 20.0 02/03/2021 8:21 AM EST Albumin Level 2.4(L) 3.4 - 5.0 Gram/dL 02/03/2021 8:21 AM EST Protein, Total 5.2(L) 6.4 - 8.2 Gram/dL 02/03/2021 8:21 AM EST A/G Ratio 0.9(L) 1.1 - 2.5 02/03/2021 8:21 AM EST Alk Phos 43 27 - 136 Units/Lit er 02/03/2021 8:21 AM EST ALT 14 13 - 56 Units/Lit er 02/03/2021 8:21 AM EST Comment: [employer] has become aware of sulfasalazine and sulfapyridine [...] prior to administration of the drug. AST 23 5 - 37 Units/Lit er 02/03/2021 8:21 AM EST Comment: [employer] has become aware of sulfasalazine and sulfapyridine [...] Bilirubin, Total 0.5 0.2 - 1.2 mg/dL 02/03/2021 8:21 AM EST Comment: Total bilirubin results may be falsely elevated in patients undergoing treatment with eltrombopag (Promacta). Results should be correlated to clinical symptomology and additional laboratory testing including other markers for liver function, e.g., alanine aminotransferase, aspartate aminotransferase, alkaline phosphatase, and/or lactate dehydrogenase. Globulin 2.8 1.5 - 4.5 Gram/dL 02/03/2021 8:21 AM EST eGFR 25(L) >=60 mL/min/1. 73m2 02/03/2021 8:22 AM EST Comment: GFR <60 suggests chronic kidney disease, if found over 3 month period. GFR <15 indicates renal failure. eGFR NonAfrican 21(L) >=60 mL/min/1. 73m2 02/03/2021 8:22 AM EST Comment: GFR <60 suggests chronic kidney disease, if found over 3 month period. GFR <15 indicates renal failure. Blood 02/03/2021 3:07 AM EST 02/03/2021 8:07 AM EST [facility] Historical Provider LAB BLOOD ORDERABLES Fi nal Result [facility] [address] [phone] documented in this encounter Visit Diagnoses Not on filedocumented in this encounter
--- OUTSIDE RECORDS SUMMARY | 2024-02-15 23:02 | XMS_ITS | Encounter Summary ---
Author Organization [employer] Address [address] [place] [address] Care Team Providers Care Chain Testing Machine Operator Name Role Phone Unavailable Primary Care Provider Unavailabl e Encounter Details Date Type Department Care Team (Late st Contact Info) Description 02/03/2021 Historic Encounter [facility] [address] [place] [address] Provider, [facility] Historical Social History Tobacco Use Types Packs/Day [...] Name Priority Date/Time Associated Diagnosis Comments PROCALCITONIN ([facility] BK DATA CONV Routine 02/03/2021 3:07 AM EST documented in this encounter Results * (ABNORMAL) PROCALCITONIN ([facility] BKR DATA CONV (02/03/2021 3:07 AM EST) Procalcitonin 9.29(H) 0.00 - 2.00 ng/mL 02/03/2021 9:37 AM EST Blood 02/03/2021 3:07 AM EST 02/03/2021 8:07 AM EST us [facility] Historical Provider LAB BLOOD ORDERABLES Fi nal Result [facility] [address] [place], [place] [address] [phone] documented in this encounter Visit Diagnoses Not on filedocumented in this encounter
--- OUTSIDE RECORDS SUMMARY | 2024-02-15 23:02 | XMS_ITS | Encounter Summary ---
Author Organization [employer] Address [address] [place] [address] Care Team Providers Care General Road Production Manager Name Role Phone Unavailable Primary Care Provider Unavailabl e Encounter Details Date Type Department Care Team (Late st Contact Info) Description 02/01/2021 Historic Encounter [address] [address] ProviderFredrick Historical Social History Tobacco [...] Associated Diagnosis Comments CMP COMPREHENSIVE METABOLIC PANEL ([facility] DATA CONV) Routine 02/01/2021 2:40 AM EST documented in this encounter Results * (ABNORMAL) CMP COMPREHENSIVE METABOLIC PANEL ([facility] BK DATA CONV) (02/01/2021 2:40 AM EST) Sodium Level 141 136 - 146 mmol/L 02/01/2021 8:27 AM EST Potassium Level 4.1 3.5 - 5.1 mmol/L 02/01/2021 8:27 AM EST Chloride Level 112 102 - 112 mmol/L 02/01/2021 8:27 AM EST Carbon Dioxide Level 23 21 - 32 mmol/L 02/01/2021 8:27 AM EST Anion Gap 10 9 - 20 02/01/2021 8:27 AM EST Calcium Level 7.9(L) 8.4 - 10.1 mg/dL 02/01/2021 8:27 AM EST Glucose Level 177(H) 74 - 106 mg/dL 02/01/2021 8:27 AM EST Comment: [employer] has become aware of sulfasalazine and sulfapyridine [...] administration of the drug. Blood Urea Nitrogen 32(H) 7 - 22 mg/dL 02/01/2021 8:27 AM EST Creatinine Level 2.30(H) 0.55 - 1.02 mg/dL 02/01/2021 8:27 AM EST Bun/Creatinine 13.9 8.0 - 20.0 02/01/2021 8:27 AM EST Albumin Level 2.4(L) 3.4 - 5.0 Gram/dL 02/01/2021 8:27 AM EST Protein, Total 5.5(L) 6.4 - 8.2 Gram/dL 02/01/2021 8:27 AM EST A/G Ratio 0.8(L) 1.1 - 2.5 02/01/2021 8:27 AM EST Alk Phos 50 27 - 136 Units/Lit er 02/01/2021 8:27 AM EST ALT 13 13 - 56 Units/Lit er 02/01/2021 8:27 AM EST Comment: [employer] has become aware of sulfasalazine and sulfapyridine [...] AST 28 5 - 37 Units/Lit er 02/01/2021 8:27 AM EST Comment: [employer] has become aware of sulfasalazine and sulfapyridine [...] Bilirubin, Total 0.5 0.2 - 1.2 mg/dL 02/01/2021 8:27 AM EST Comment: Total bilirubin results may be falsely elevated in patients undergoing treatment with eltrombopag (Promacta). Results should be correlated to clinical symptomology and additional laboratory testing including other markers for liver function, e.g., alanine aminotransferase, aspartate aminotransferase, alkaline phosphatase, and/or lactate dehydrogenase. Globulin 3.1 1.5 - 4.5 Gram/dL 02/01/2021 8:27 AM EST eGFR 25(L) >=60 mL/min/1. 73m2 02/01/2021 8:27 AM EST Comment: GFR <60 suggests chronic kidney disease, if found over 3 month period. GFR <15 indicates renal failure. eGFR NonAfrican 21(L) >=60 mL/min/1. 73m2 02/01/2021 8:27 AM EST Comment: GFR <60 suggests chronic kidney disease, if found over 3 month period. GFR <15 indicates renal failure. Blood 02/01/2021 2:40 AM EST 02/01/2021 8:00 AM EST [facility] Historical Provider LAB BLOOD ORDERABLES Fi nal Result [facility] [address] [phone] documented in this encounter Visit Diagnoses Not on filedocumented in this encounter
--- OUTSIDE RECORDS SUMMARY | 2024-02-15 23:02 | XMS_ITS | Encounter Summary ---
Author Organization [employer] Address [address] [place] [address] Care Team Providers Care Lens Polisher Hand Name Role Phone Unavailable Primary Care Provider Unavailabl e Encounter Details Date Type Department Care Team (Late st Contact Info) Description 02/02/2021 Historic Encounter [facility] [address] [place] [address] Provider, [facility] Historical Social History Tobacco Use Types [...] Priority Date/Time Associated Diagnosis Comments CALCIUM IONIZED ([facility] DATA CONV) Routine 02/02/2021 3:24 AM EST documented in this encounter Results * CALCIUM IONIZED ([facility] DATA CONV) (02/02/2021 3:24 AM EST) Calcium Ionized 1.13 1.12 - 1.32 mmol/L 02/02/2021 8:38 AM EST [facility] Blood 02/02/2021 3:24 AM EST 02/02/2021 8:32 AM EST us [facility] Historical Provider LAB BLOOD ORDERABLES Fi nal Result [facility] [address] [phone] documented in this encounter Visit Diagnoses Not on filedocumented in this encounter
--- OUTSIDE RECORDS SUMMARY | 2024-02-15 23:03 | XMS_ITS | Encounter Summary ---
Author Organization [employer] Address [address] [place] [address] Care Team Providers Care Bedspring Assembler Name Role Phone Unavailable Primary Care Provider Unavailabl e Encounter Details Date Type Department Care Team (Late st Contact Info) Description 01/30/2021 Historic Encounter [address] [address] ProviderFredrick Historical Social History Tobacco [...] Procedure Name Priority Date/Time Associated Diagnosis Comments BLOOD GAS ARTERIAL (ABG) ([facility] DATA CONV) Routine 01/30/2021 5:57 AM EST documented in this encounter Results * (ABNORMAL) BLOOD GAS ARTERIAL (ABG) ([facility] DATA CONV) (01/30/2021 5:57 AM EST) $ABG Puncture No 01/30/2021 10:58 AM EST pH Art 7.40 7.35 - 7.45 01/30/2021 11:09 AM EST pCO2 Art 31.5(L) 35.0 - 45.0 mmHg 01/30/2021 11:09 AM EST pO2 Art 81.4 80.0 - 100.0 mmHg 01/30/2021 11:09 AM EST HCO3 Art 19.4(L) 20.0 - 26.0 mmol/L 01/30/2021 11:09 AM EST BE Art -4.8(L) -2.0 - 2.0 mmol/L 01/30/2021 11:09 AM EST sO2 Art 97.4 95.0 - 100.0 % 01/30/2021 11:09 AM EST tHb Art 8.6(L) 12.0 - 18.0 Gram/dL 01/30/2021 11:09 AM EST FH Hb 2.5 % 01/30/2021 11:09 AM EST ctO2 11.7 mmol/L 01/30/2021 11:09 AM EST FIO2 Art 75 01/30/2021 11:09 AM EST Delivery Device Type Art Ventilator 01/30/2021 10:58 AM EST Temperature,F Art 98.6 Deg F 01/30/2021 11:09 AM EST Art Blood Gas (ABG) Site Arterial Line 01/30/2021 10:58 AM EST Acceptable Advis's Test Art Acceptable Acceptable 01/30/2021 10:58 AM EST Ventilator Mode Art Assist Control Ventilation 01/30/2021 10:58 AM EST Tidal Volume Set Art 400.0 mL 01/30/2021 10:58 AM EST Set Rate Art 16.0 01/30/2021 10:58 AM EST Respiratory Rate Art 16.0 01/30/2021 10:58 AM EST CPAP/PEEP Art 8.0 cmH2O 01/30/2021 10:58 AM EST Comment Art supine 01/30/2021 10:58 AM EST ABG Num of Draw Attempts 1 01/30/2021 10:58 AM EST PaO2/FiO2 calculated 109 01/30/2021 11:09 AM EST 01/30/2021 5:57 AM EST 01/30/2021 10:58 AM EST us [facility] Historical Provider LAB BLOOD ORDERABLES Fi nal Result [facility] 1 [place], [place] [address] [phone] documented in this encounter Visit Diagnoses Not on filedocumented in this encounter
--- OUTSIDE RECORDS SUMMARY | 2024-02-15 23:03 | XMS_ITS | Encounter Summary ---
Author Organization [employer] Address [address] [place] [address] Care Team Providers Care Front End Software Engineer Name Role Phone Unavailable Primary Care Provider Unavailabl e Encounter Details Date Type Department Care Team (Late st Contact Info) Description 01/30/2021 Historic Encounter [facility] [address] [place] [address] Provider, [facility] Historical Social History Tobacco Use [...] Date/Time Associated Diagnosis Comments POTASSIUM, SERUM Routine 01/30/2021 7:35 PM EST documented in this encounter Results * (ABNORMAL) POTASSIUM, SERUM (01/30/2021 7:35 PM EST) Potassium Level 5.3(H) 3.5 - 5.1 mmol/L 01/31/2021 1:11 AM EST Blood 01/30/2021 7:35 PM EST 01/31/2021 12:39 AM EST [facility] Historical Provider PATHOLOGY/CYTOLOGY BRANDYE MAGNOLIA Final Result [facility] [address] [place] [id number] [phone] documented in this encounter Visit Diagnoses Not on filedocumented in this encounter
--- OUTSIDE RECORDS SUMMARY | 2024-02-15 23:03 | XMS_ITS | Encounter Summary ---
Author Organization [employer] Address [address] [place] [address] Care Team Providers Care Equities Analyst Name Role Phone Unavailable Primary Care Provider Unavailabl e Encounter Details Date Type Department Care Team (Late st Contact Info) Description 01/31/2021 Historic Encounter [address] [address] Provider, [place] Historical Social History Tobacco Use Types Packs/Day [...] Priority Date/Time Associated Diagnosis Comments GLUCOSE-POC Routine 01/31/2021 11:46 AM EST documented in this encounter Results * (ABNORMAL) Glucose, Point of Care (01/31/2021 11:46 AM EST) Glucose POC2 155(H) 70 - 110 mg/dL 01/31/2021 4:46 PM EST [facility] Optical Instrument Inspector [id number] 01/31/2021 4:46 PM EST [facility] Device SN [id number] 01/31/2021 4:46 PM EST [facility] Device Comment1 Notified Nurse RBV 01/31/2021 4:46 PM EST [facility] Blood 01/31/2021 11:4 6 AM EST 01/31/2021 4:48 PM EST [facility] Historical Provider POINT OF CARE TEST ORDE MAGNOLIA Final Result [facility] [address] [phone] documented in this encounter Visit Diagnoses Not on filedocumented in this encounter
--- OUTSIDE RECORDS SUMMARY | 2024-02-15 23:03 | XMS_ITS | Encounter Summary ---
Author Organization [employer] Address [address] [place] [address] Care Team Providers Care Lockstitch Sleeve Setter Name Role Phone Unavailable Primary Care Provider Unavailabl e Encounter Details Date Type Department Care Team (Late st Contact Info) Description 01/30/2021 Historic Encounter [address] [place] [address] Provider, [facility] Historical Social [...] Procedure Name Priority Date/Time Associated Diagnosis Comments CULTURE, FUNGAL(SENDOUT) Routine 01/30/2021 10:46 AM EST documented in this encounter Results * Culture, Fungal(SENDOUT) (01/30/2021 10:46 AM EST) Final No fungus isolated at 6 weeks. Final Pre No fungus isolated at 5 weeks. Pre Pre No fungus isolated at 4 weeks. Pre Pre No fungus isolated at 3 weeks. Pre Pre No fungus isolated at 2 weeks. Pre Pre No fungus isolated at 1 week. Pre EMMY No Fungal elements seen BAL 01/30/2021 10:4 6 AM EST 01/30/2021 6:33 PM EST Comment:BILL RLL Narrative [facility] - 03/18/2021 9:01 PM EST With fungal prep and stain RLL [facility] Historical Provider MICROBIOLOGY - GENERAL ORDERABLES Final Result [facility] [address] [place] [address], [facility] [phone] documented in this encounter Visit Diagnoses Not on filedocumented in this encounter
--- OUTSIDE RECORDS SUMMARY | 2024-02-15 23:03 | XMS_ITS | Encounter Summary ---
Author Organization [employer] Address [address] [place] [address] Care Team Providers Care Supervisor Boat Outfitting Name Role Phone Unavailable Primary Care Provider Unavailabl e Encounter Details Date Type Department Care Team (Late st Contact Info) Description 02/01/2021 Transcribed Document [facility] [place] [facility] [place] [address] ProviderDick MD [facility] [place] [address] Social History Tobacco Use Types [...] Cerner Conversion Note - Historical Provider, - 02/01/2021 9:20 AM MAT MACHINE TENDER Evaluation, Occupational Therapy Entered On: 02/02/2021 12:45 EST Performed On: 02/02/2021 11:01 EST by KYLE LAND OTR/Dieter General Information, OT Visit Type, OT : Initial evaluation Patient Orders : Order Date Order Ordering 01/29/2021 22:39 OT Evaluation and Treatment Ordered By: CHRISTIANO CABEZAS DO-INT 02/01/2021 09:20 OT Evaluation and Treatment Ordered By: CRISTINE RAMEY APRN Active Diagnoses : No Qualifying Diagnoses Therapy Diagnosis, OT : decreased indpendence secondary to generalized weakness Onset of Problem, OT : 02/02/2021 EST Admission Date : 01/29/2021 22:07 Co-treated by, OT : Physical Therapist Personal Devices : Personal Devices No Devices Recorded Assistive Devices : Assistive Devices No Devices Recorded Precautions in Place : Fall prevention measures General Information Comment, OT : Pt went into cardiac arrest s/p stress test at outside facility and was intubated due to respiratory distress. Pt now on 6L. PMH: HTN, HLD, DM KYLE LAND OTR/Dieter - 02/02/2021 12:30 EST General Status Patient Received Status : Supine in bed Treatment Start Time : 02/02/2021 10:47 EST Patient Left Status : Up in chair, RN/PCT informed, Family/Visitors at bedside, All needs met and within reach RN/PCT Informed Comment : JASS Ramirez Treatment End Time : 02/02/2021 11:01 EST Treatment Time : 14 Minute(s) KYLE LAND OTR/Dieter - 02/02/2021 12:30 EST History and Environment, OT Living Situation, Therapy : Home Patient Lives With : Alone Home Equipment, Therapy : Bar, grab Home Setup : One story Bathroom #1 Features : Tub/Shower Stairs : Yes Stair Location(s) : Outside Outside Stairs, Number of Steps : 1 Railing Outside : Yes Outside Railing Position : Left, going up KYLE LAND OTR/Dieter - 02/02/2021 12:30 EST Prior LOF Bathing, OT : Independent Prior LOF Bed Mobility : Independent Prior LOF Upper Body Dressing, OT : Independent Prior LOF Lower Body Dressing, OT : Independent Prior LOF Toileting : Independent Prior LOF Transfer : Independent Prior LOF Grooming, OT : Independent Prior LOF for IADLs, OT : Independent KYLE LAND OTR/Dieter - 02/02/2021 12:30 EST Upper Extremity Upper Extremity Dominance : Right Right UE Active ROM : WFL Right UE Strength : WFL Left UE Active ROM : WFL Left UE Strength : WFL KYLE LAND OTR/Dieter - 02/02/2021 12:30 EST Self Care/Home Management, OT Self Feeding Assist Level, OT : Independent, complete Grooming Assist Level, OT : Assist, minimal Bathing Assist Level, OT : Assist, moderate Upper Body Dressing Assist Level, OT : Supervision or set-up Lower Body Dressing Assist Level, OT : Assist, maximal Toileting Assist Level : Assist, minimal Toilet Transfer Assist Level : Assist, moderate KYLE LAND OTR/Dieter - 02/02/2021 12:30 EST Functional Mobility Mobility Grid Supine to Sit : Rehab Minimal assistance Sit to Stand : Rehab Minimal assistance (Comment: x2 [KYLE LAND OTR/Dieter - 02/02/2021 12:30 EST] ) Bed to Chair : Rehab Minimal assistance (Comment: x2 [KYLE LAND OTR/L - 02/02/2021 12:30 EST] ) Stand to Sit : Rehab Minimal assistance KYLE LAND OTR/Dieter - 02/02/2021 12:30 EST Cognition Assessment, OT Orientation : Oriented x 4 KYLE LAND OTR/L - 02/02/2021 12:30 EST Indication Assessment, OT Occupational Therapy Indicated : Yes Problem List, OT : Impaired, bed mobility, Impaired, activities daily living, Impaired, endurance tolerance, Impaired functional mobility, Impaired, standing balance, Impaired, strength, Impaired, transfers Potential Barriers, OT : None evident Rehabilitation Potential, OT : Good KYLE LAND OTR/Dieter - 02/02/2021 12:30 EST Plan of Care, OT OT Tx Plan/Goals Established w Patient : Yes OT Frequency Rehab : Five days per week OT Duration Rehab : Fourteen days OT Treatments Planned : Activities of daily living, Balance training, Functional mobility training, Safety education, Therapeutic activities, Therapeutic exercises KYLE LAND OTR/L - 02/02/2021 12:30 EST Correction Goals, OT Grooming LTG Grid Goal #1 Activity : Grooming Assist : Independent, modified Date to Meet : 02/16/2021 EST Goal Status : Initial goal KYLE LAND OTR/Dieter - 02/02/2021 12:30 EST Dressing, Lower Body LTG Grid Goal #1 Activity : Dressing, Lower Body Assist : Independent, modified Date to Meet : 02/16/2021 EST Goal Status : Initial goal KYLE LAND OTR/Dieter - 02/02/2021 12:30 EST Toilet Transfer LTG Grid Goal #1 Activity : Toilet Transfer, Ambulatory Assist : Independent, modified Date to Meet : 02/16/2021 EST Goal Status : Initial goal KYLE LAND OTR/Dieter - 02/02/2021 12:30 EST Bed Mobility/ Bed Transfer LTG Grid Goal #1 Activity : Bed Mobility/Bed Transfer Assist : Independent, modified Date to Meet : 02/16/2021 EST Goal Status : Initial goal KYLE LAND OTR/L - 02/02/2021 12:30 EST Treatment Note Subjective Comment : pt agreeable to tx. pt goal to return home. Patient's Response to Treatment : pt tolerated session well. Additional Objective Information : pt supine in bed upon arrival on 6L of O2. Pt alert and oriented x4. Pt min a for bed mobility to EOB. pt Full ROM B UE. MMT 4/5. Pt min a x2 FIELD SERVICE COORDINATOR for transfer to chair. pt left upright in chair with lunch tray set up. Pt O2 dropped to low 90s, but rebounded quckly. Left upright in chair with call light in reach and all other needs met. Assessment : pt will benefit from skilled OT during hospitalization. Plan for Treatment : See LTG/POC. KYLE LAND OTR/L - 02/02/2021 12:30 EST Pain Assessment Pain Scaled Used : 0-10 Pain scale Pain Score During-Intervention : 0 KYLE LAND OTR/L - 02/02/2021 12:30 EST Image 1 - Images currently included in the form version of this document have not been included in the text rendition version of the form. Anticipated Discharge Needs, OT/PT Anticipated Discharge to : Home, with home health KYLE LAND OTR/L - 02/02/2021 12:[address] [facility] OT Charges OT Eval Moderate Complexity : 1 KLYE LAND OTR/L - 02/02/2021 12:30 EST documented in this encounter Plan of Treatment Not on file documented as of this encounter Visit Diagnoses Not on filedocumented in this encounter
--- OUTSIDE RECORDS SUMMARY | 2024-02-15 23:03 | XMS_ITS | Encounter Summary ---
Author Organization [facility] [employer] Address [address] [place] [address] Care Team Providers Care Mineral Resources Inspector Name Role Phone Unavailable Primary Care Provider Unavailabl e Encounter Details Date Type Department Care Team (Late st Contact Info) Description 01/31/2021 Transcribed Document [facility] [place] [facility] [place] [address] ProviderDick MD [facility] [place] [address] Social History Tobacco Use Types [...] Cerner Conversion Note - Historical ProviderMD - 01/31/2021 10:48 AM DIRECTOR COMPLIANCE Patient: CISCO CAZARES Age: 75 years Sex: Female : 1945 Associated Diagnoses: None Author: JOLIE PAGAN MD-[facility] Subjective Chief complaint. 01/31/21 on vent intubated Health Status Allergies: Allergic Reactions (Selected) No Known Allergies, Allergies (1) Active Reaction No Known Allergies None Documented Current medications: (Selected) Inpatient Medications Ordered Dextrose 50% injection: 12.5 Gram, IV Push, Q15Min, PRN: Other (See Comment) Dextrose 50% injection: 25 Gram, IV Push, Q15Min, PRN: Other (See Comment) Dextrose 50% injection: 25 Gram, IV Push, Q15Min, PRN: Other (See Comment) Dextrose 50% injection: 25 Gram, IV Push, Q15Min, PRN: Other (See Comment) Lipitor: 40 mg, Oral, At Bedtime Lovenox: 30 mg, SubCutaneous, [id number] MiraLax: 17 Gram, Oral, Daily, PRN: Constipation NORepinephrine injection 8 mg + NaCl 0.9% for drip 250 mL: TITRATE, IntraVENous Normal Saline 1,000 mL: 75 mL/Hr, IntraVENous Normal Saline Flush: 10 mL, IV Push, Q12H Normal Saline Flush: 10 mL, IV Push, See Comment, PRN: IV Use Pepcid: 20 mg, IV Push, Q12H SOLU-Medrol: 40 mg, IV Push, Q12H Tylenol: 650 mg, Oral, Q4H, PRN: Fever Zosyn + Sodium Chloride 0.9% intravenous solution 50 mL: 2.25 Gram, 16.67 mL/Hr, IV Piggyback, Q8HInt Zyvox: 600 mg, 300 mL, 300 mL/Hr, IV Piggyback, [id number] dexmedeTOMIDine injection 400 mcg + NaCl 0.9% for drip 100 mL: TITRATE, IntraVENous docusate sodium: 100 mg, Oral, BID doxycycline + Sodium Chloride 0.9% intravenous solution 100 mL: 100 mg, 50 mL/Hr, IV Piggyback, [id number] fentaNYL injection 2,000 mcg + Dextrose 5% in Water for Drip 60 mL: TITRATE, IntraVENous glucagon: 1 mg, IntraMuscular, Q15Min, PRN: Other (See Comment) glucose 4 g oral tablet, chewable: 16 Gram, 4 Tab, Chew, Q15Min, PRN: Other (See Comment) glucose 40% oral gel: 15 Gram, 37.5 mL, Oral, Q15Min, PRN: Other (See Comment) insulin regular sliding scale: Scale B, SubCutaneous, Q6H lactobacillus acidophilus: 1 Cap, Oral, BID levothyroxine: 100 mcg, Oral, Daily senna: 8.8 mg, Oral, BID vasopressin injection 20 Units [0.03 Units/min] + Dextrose 5% in Water for Drip 100 mL: 9 mL/Hr, IntraVENous Documented Medications Documented amLODIPine 2.5 mg [...] 0 Refill(s) lisinopril 20 mg oral tablet: 0 Refill(s) pioglitazone 45 mg oral tablet: 0 Refill(s) simvastatin 20 mg oral tablet: 0 Refill(s) sodium polystyrene sulfonate 15 g/60 [...] Oral, Daily lisinopril 20 mg oral tablet pioglitazone 45 mg oral tablet simvastatin 20 mg oral tablet sodium polystyrene sulfonate 15 g/60 mL oral and rectal suspension , Medications (28) Active Scheduled: (13) #NaCl 0.9% *FLUSH* inj 10 mL 10 mL, IV Push, Q12H atorvastatin 40 mg tab 40 mg 1 Tab, Oral, At Bedtime docusate sod 100 mg/10 mL liq 100 mg 10 mL, Oral, BID doxycycline hyclate + NaCl 0.9% 100 mL 100 mg, IV Piggyback, [id number] enoxaparin 30 mg/0.3 ml inj 30 mg 0.3 mL, SubCutaneous, [id number] famotidine 20 mg/2 mL inj 20 mg 2 mL, IV Push, Q12H insulin regular 1 unit/0.01 mL inj 3mL Scale B, SubCutaneous, Q6H lactobacillus acidophilus cap 1 Cap, Oral, BID levothyroxine 100 mcg tab 100 mcg 1 Tab, Oral, Daily linezolid *PREMIX* 600 mg 300 mL, IV Piggyback, [id number] methylPREDNISolone SUCCinate 40 mg inj 40 mg, IV Push, Q12H piperacillin-tazobactam + NaCl 0.9% 50 mL 2.25 Gram, IV Piggyback, Q8HInt senna 8.8 mg/5 mL liq 59 mL 8.8 mg 5 mL, Oral, BID Continuous: (5) dexmedeTOMIDine 400 mcg + NaCl 0.9% TITRATE 100 mL 100 mL, IntraVENous fentaNYL 2,000 mcg + Dextrose 5% in Water TITRATE 60 mL 60 mL, IntraVENous NaCl 0.9% 1,000 mL 1,000 mL, IntraVENous, 75 mL/Hr NORepinephrine 8 mg + NaCl 0.9% T ITRATE 250 mL 250 mL, IntraVENous vasopressin 20 Units [0.03 Units/min] + Dextrose 5% in Water TITRATE 100 mL 100 mL, IntraVENous, 9 mL/Hr PRN: (10) #NaCl 0.9% *FLUSH* inj 10 mL 10 mL, IV Push, See Comment acetaminophen 325 mg tab 650 mg 2 Tab, Oral, Q4H dextrose 50% 25 g/50 mL inj syr [...] g 15 Gram 37.5 mL, Oral, Q15Min polyethylene glycol 3350 pwd 17 g pkt 17 Gram 1 Packet, Oral, Daily Problem list: Medical Hypertension / SNOMED CT 27001377 / Confirmed, Active Problems (1) Hypertension Objective VS/Measurements Vitals Signs (last 24 hrs) Last Charted Minimum Maximum Temp 98.3 (JAN 31 04:00) 98 (JAN 31 00:00) H 99.9 (JAN 30 12:00) Mon HR 64 (JAN 31 10:00) 56 (JAN 31 00:30) 96 (JAN 31 03:15) Resp Rate 20 (JAN 31 08:31) 20 (JAN 31 08:31) H 28 (JAN 30 23:40) SBP H 144 (JAN 31 10:00) 113 (JAN 30 14:00) H 173 (JAN 31 06:00) DBP 65 (JAN 31 10:00) L 56 (JAN 31 08:00) 75 (JAN 31 06:00) MAP 88 (JAN 31 10:00) 69 (JAN 30 11:45) 114 (JAN 31 06:30) SpO2 100 (JAN 31 10:00) 98 (JAN 31 07:00) 100 (JAN 30 11:00) General: Mild distress, Not alert and oriented. Eye: Pupils are equal, round and reactive to light, Normal conjunctiva. HENT: Normocephalic. Respiratory: Respirations are non-labored. Cardiovascular: Normal rate, Regular rhythm. Gastrointestinal: Soft, Non-tender. Integumentary: Warm. Neurologic: Not alert, Not oriented. Psychiatric: Not cooperative, Not appropriate mood & affect. Results Review JAN 31 03:19 140 110 H 32 / H 182 4.4 22 H 2.60 \ JAN 31 03:19 \ L 10.6 / H 20.8 272 / L 30.9 \ JAN 31 03:19 140 110 H 32 / H 182 4.4 22 H 2.60 \ JAN 31 03:19 \ L 10.6 / H 20.8 272 / L 30.9 \ Impression and Plan PEA cardiopulmonary arrest -Occurred at [facility] during a Stress Test with Dr. [...] Doxy -Sputum cultures and Resp PCR sent SOA with exertion -Spoke to daughter 01/30. [...] IV steroids IV zosyn labs in am d/w RN disposition still in ICU sick time spent 35 min documented in this encounter Plan of Treatment Not on file documented as of this encounter Visit Diagnoses Not on filedocumented in this encounter
--- OUTSIDE RECORDS SUMMARY | 2024-02-15 23:03 | XMS_ITS | Encounter Summary ---
Author Organization [employer] Address [address] [place] [address] Care Team Providers Care Fish Hatchery Specialist Name Role Phone Unavailable Primary Care Provider Unavailabl e Encounter Details Date Type Department Care Team (Late st Contact Info) Description 02/01/2021 Historic Encounter [address] [phone] Fredrick Spivey Historical Social History [...] Associated Diagnosis Comments CBC W/ AUTO DIFF ([facility] DATA CONV) Routine 02/01/2021 2:40 AM EST documented in this encounter Results * (ABNORMAL) CBC W/ AUTO DIFF ([facility] DATA CONV) (02/01/2021 2:40 AM EST) WBC 15.0(H) 4.5 - 10.5 K/uL 02/01/2021 8:03 AM EST Comment:Released without rep eat. RBC 2.80(L) 3.93 - 5.22 Million/uL 02/01/2021 8:03 AM EST Hgb 8.9(L) 11.2 - 15.7 g/dL 02/01/2021 8:03 AM EST Hct 26.3(L) 34.1 - 44.9 % 02/01/2021 8:03 AM EST MCV 93.9 79.0 - 94.8 fL 02/01/2021 8:03 AM EST MCH 31.8 25.6 - 32.2 pg 02/01/2021 8:03 AM EST MCHC 33.8 32.2 - 36.5 Gram/dL 02/01/2021 8:03 AM EST RDW 16.0(H) 11.7 - 14.9 % 02/01/2021 8:03 AM EST Platelet Count 216 163 - 369 K/uL 02/01/2021 8:03 AM EST MPV 11.0 9.4 - 12.4 fL 02/01/2021 8:03 AM EST Blood 02/01/2021 2:40 AM EST 02/01/2021 8:01 AM EST [facility] Historical Provider LAB BLOOD ORDERABLES Fi nal Result [facility] [address] [phone] documented in this encounter Visit Diagnoses Not on filedocumented in this encounter
--- OUTSIDE RECORDS SUMMARY | 2024-02-15 23:03 | XMS_ITS | Encounter Summary ---
Author Organization [employer] Address [address] [place] [address] Care Team Providers Care Municipal Maintenance Worker Name Role Phone Unavailable Primary Care Provider Unavailabl e Encounter Details Date Type Department Care Team (Late st Contact Info) Description 01/31/2021 Historic Encounter [address] [phone] Fredrick Spivey Historical Social History [...] Associated Diagnosis Comments CBC W/ AUTO DIFF ([facility] DATA CONV) Routine 01/31/2021 3:19 AM EST documented in this encounter Results * (ABNORMAL) CBC W/ AUTO DIFF ([facility] DATA CONV) (01/31/2021 3:19 AM EST) WBC 20.8(H) 4.5 - 10.5 K/uL 01/31/2021 8:25 AM EST Comment:Released without rep eat. RBC 3.38(L) 3.93 - 5.22 Million/u L 01/31/2021 8:25 AM EST Hgb 10.6(L) 11.2 - 15.7 g/dL 01/31/2021 8:25 AM EST Hct 30.9(L) 34.1 - 44.9 % 01/31/2021 8:25 AM EST MCV 91.4 79.0 - 94.8 fL 01/31/2021 8:25 AM EST MCH 31.4 25.6 - 32.2 pg 01/31/2021 8:25 AM EST MCHC 34.3 32.2 - 36.5 Gram/dL 01/31/2021 8:25 AM EST RDW 15.5(H) 11.7 - 14.9 % 01/31/2021 8:25 AM EST Platelet Count 272 163 - 369 K/uL 01/31/2021 8:25 AM EST MPV 10.5 9.4 - 12.4 fL 01/31/2021 8:25 AM EST Slide Review Technologist 01/31/2021 3:13 PM EST nRBC 0.030(H) 0.000 - 0.012 01/31/2021 8:25 AM EST Blood 01/31/2021 3:19 AM EST 01/31/2021 8:23 AM EST [facility] Historical Provider LAB BLOOD ORDERABLES Fi nal Result [facility] [address] [phone] documented in this encounter Visit Diagnoses Not on filedocumented in this encounter
--- OUTSIDE RECORDS SUMMARY | 2024-02-15 23:03 | XMS_ITS | Encounter Summary ---
Author Organization [employer] Address [address] [place] [address] Care Team Providers Care Clinical Registered Nurse Name Role Phone Unavailable Primary Care Provider Unavailabl e Encounter Details Date Type Department Care Team (Late st Contact Info) Description 01/31/2021 Historic Encounter [address] [phone] Provider, [place] Historical Social History [...] Date/Time Associated Diagnosis Comments GLUCOSE-POC Routine 01/31/2021 11:32 PM EST documented in this encounter Results * (ABNORMAL) Glucose, Point of Care (01/31/2021 11:32 PM EST) Glucose POC2 170(H) 70 - 110 mg/dL 02/01/2021 4:32 AM EST [facility] Battery Hand [id number] 02/01/2021 4:32 AM EST [facility] Device SN [id number] 02/01/2021 4:32 AM EST [facility] Device Comment1 Notified Nurse RBV 02/01/2021 4:32 AM EST [facility] Blood 01/31/2021 11:3 2 PM EST 02/01/2021 4:33 AM EST [facility] Historical Provider POINT OF CARE TEST ORDE MAGNOLIA Final Result [facility] [address] [phone] documented in this encounter Visit Diagnoses Not on filedocumented in this encounter
--- OUTSIDE RECORDS SUMMARY | 2024-02-15 23:03 | XMS_ITS | Encounter Summary ---
Author Organization [employer] Address [address] [place] [address] Care Team Providers Care Speech Lang Path Name Role Phone Unavailable Primary Care Provider Unavailabl e Encounter Details Date Type Department Care Team (Late st Contact Info) Description 01/30/2021 Historic Encounter [address] [phone] Fredrick Spivey Historical Social History [...] Procedure Name Priority Date/Time Associated Diagnosis Comments [facility] BASIC METABOLIC PANEL ([facility] DATA CONV) Routine 01/30/2021 12:12 AM EST documented in this encounter Results * (ABNORMAL) [facility] MET[facility]OLIC [facility] ([facility] DATA CONV) (01/30/2021 12:12 AM EST) Glucose Level 234(H) 74 - 106 mg/dL 01/30/2021 6:04 AM EST Comment: [employer] has become aware of sulfasalazine and sulfapyridine [...] administration of the drug. Blood Urea Nitrogen 29(H) 7 - 22 mg/dL 01/30/2021 6:04 AM EST Creatinine Level 2.20(H) 0.55 - 1.02 mg/dL 01/30/2021 6:04 AM EST Sodium Level 140 136 - 146 mmol/L 01/30/2021 6:04 AM EST Potassium Level 3.0(L) 3.5 - 5.1 mmol/L 01/30/2021 6:04 AM EST Chloride Level 107 102 - 112 mmol/L 01/30/2021 6:04 AM EST Carbon Dioxide Level 23 21 - 32 mmol/L 01/30/2021 6:04 AM EST Anion Gap 13 9 - 20 01/30/2021 6:04 AM EST Calcium Level 8.9 8.4 - 10.1 mg/dL 01/30/2021 6:04 AM EST Bun/Creatinine 12.6 8.0 - 20.0 01/30/2021 6:04 AM EST eGFR NonAfrican 22(L) >=60 mL/min/1. 73m2 01/30/2021 6:09 AM EST Comment: GFR <60 suggests chronic kidney disease, if found over 3 month period. GFR <15 indicates renal failure. eGFR 27(L) >=60 mL/min/1. 73m2 01/30/2021 6:09 AM EST Comment: GFR <60 suggests chronic kidney disease, if found over 3 month period. GFR <15 indicates renal failure. Blood 01/30/2021 12:1 2 AM EST 01/30/2021 5:30 AM EST [facility] Historical Provider LAB BLOOD ORDERABLES Fi nal Result [facility] [address] [place] [address], [facility] [phone] documented in this encounter Visit Diagnoses Not on filedocumented in this encounter
--- OUTSIDE RECORDS SUMMARY | 2024-02-15 23:03 | XMS_ITS | Encounter Summary ---
Author Organization [employer] Address [address] [place] [address] Care Team Providers Care Rippler Name Role Phone Unavailable Primary Care Provider Unavailabl e Encounter Details Date Type Department Care Team (Late st Contact Info) Description 01/31/2021 Historic Encounter [address] [phone] ProviderFredrick Historical Social History Tobacco [...] Associated Diagnosis Comments BLOOD GAS ARTERIAL (ABG) ([facility] DATA CONV) Routine 01/31/2021 6:11 AM EST documented in this encounter Results * (ABNORMAL) BLOOD GAS ARTERIAL (ABG) ([facility] DATA CONV) (01/31/2021 6:11 AM EST) $ABG Puncture No 01/31/2021 11:27 AM EST pH Art 7.45 7.35 - 7.45 01/31/2021 11:26 AM EST pCO2 Art 34.0(L) 35.0 - 45.0 mmHg 01/31/2021 11:26 AM EST pO2 Art 257.0(H) 80.0 - 100.0 mmHg 01/31/2021 11:26 AM EST HCO3 Art 23.6 20.0 - 26.0 mmol/L 01/31/2021 11:26 AM EST BE Art .0 -2.0 - 2.0 mmol/L 01/31/2021 3:30 PM EST sO2 Art >100.0 95.0 - 100.0 % 01/31/2021 11:26 AM EST tHb Art 10.8(L) 12.0 - 18.0 Gram/dL 01/31/2021 11:26 AM EST FH Hb <2.4 % 01/31/2021 11:26 AM EST FIO2 Art 60 01/31/2021 11:26 AM EST Delivery Device Type Art Ventilator 01/31/2021 11:26 AM EST Temperature,F Art 98.6 Deg F 01/31/2021 11:26 AM EST Art Blood Gas (ABG) Site Arterial Line 01/31/2021 11:27 AM EST Acceptable Davis's Test Art Non-Applicable 01/31/2021 11:26 AM EST Ventilator Mode Art AC 01/31/2021 11:26 AM EST Tidal Volume Set Art 400.0 mL 01/31/2021 11:26 AM EST Set Rate Art 16.0 01/31/2021 11:26 AM EST Respiratory Rate Art 17.0 01/31/2021 11:26 AM EST CPAP/PEEP Art 10.0 cmH2O 01/31/2021 11:26 AM EST Comment Art supine 01/31/2021 11:27 AM EST ABG Num of Draw Attempts 1 01/31/2021 11:27 AM EST PaO2/FiO2 calculated 428 01/31/2021 11:27 AM EST 01/31/2021 6:11 AM EST 01/31/2021 11:12 AM EST [facility] Historical Provider LAB BLOOD ORDERABLES Fi nal Result [facility] [address] [place] [address], [facility] [phone] documented in this encounter Visit Diagnoses Not on filedocumented in this encounter
--- OUTSIDE RECORDS SUMMARY | 2024-02-15 23:03 | XMS_ITS | Encounter Summary ---
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 Living Situation : Home Patient Lives With : Alone Emergency Contact #1 : Eunice Cazares Emergency Contact #1 Emergency Contact #1 Relationship : Daughter Emergency Contact #2 : - Emergency Contact #2 Phone Number : - Emergency Contact #2 Relationship : - Enter Doctors Name : ELLIE wood MD Does Patient have PCP Listed? : Yes Medical Durable Power of Meal Temperer Name : no Legal Guardian : No Is Guardianship Needed : No JANET MDARID RN-Public Health Nutritionist - 01/31/2021 9:09 EST Initial Assessment II Sensory and Motor Deficits : Weakness Current Home Treatments and Equipment : None Does the Patient have a Floor to SNF Benefit? : Yes JANET MADRID, RN-Public Health Nutritionist - 01/31/2021 9:09 EST Discharge Needs I Anticipated Discharge Date : 02/03/2021 EST Anticipated Discharge To, CM : Home with home health, Rehabilitation Unit, custodial facility Current Home Treatment/Equipment : Current Home Treatment/Equipment No qualifying data available. Post Acute/Home Treatments : None Documentation Status Complete : Yes JANET MADRID RN-Public Health Nutritionist - 01/31/2021 9:09 EST Discharge Needs II Professional Skilled Services : Professional Skilled Services No qualifying data available. Needs Assistance with Transportation : Maybe Discharge Options Discussed with Patient : Acute rehabilitation, Home Health, [facility] JANET MADRID, RN-Public Health Nutritionist - 01/31/2021 9:09 EST Narrative Note Narrative Note : HD# 2. elos: not reported. RAR: moderate 57 from [facility]. pea arrest during stress test. acute hypoxic resp failure. irene. htn. diabetes. covid 19: negative 01-30 mechancial ventilation. precedex gtt. fentanyl gtt. levophed gtt to off. doxycycline/zyvox/zosyn iv. solu medrol iv. spoke with pt's daughter, Eunice, by phone. pt resides in [facility]. she lives alone. adl independent. no dme, hh or rehab stays dcp: rehab vs hh depending on progress. no poa/hcs. single. 1 child. Eunice, daughter, legal next of kin: [phone] spoke with Bao bedside RN. JANET MADRID, RN-Public Health Nutritionist - 01/31/2021 9:09 EST Electronically signed by Parviz [facility] Conversion A Auxiliary Cerner at 06/22/2022 7:37 PM CDT documented in this encounter Plan of Treatment Not on file documented as of this encounter Visit Diagnoses Not on filedocumented in this encounter
--- OUTSIDE RECORDS SUMMARY | 2024-02-15 23:03 | XMS_ITS | Encounter Summary ---
Author Organization [employer] Address [address] [place] [address] Care Team Providers Care Respiratory Care Program Director Name Role Phone Unavailable Primary Care Provider Unavailabl e Encounter Details Date Type Department Care Team (Late st Contact Info) Description 01/31/2021 Historic Encounter [address] [phone] Fredrick Spivey Historical Social History [...] Date/Time Associated Diagnosis Comments HEMOGLOBIN A1C Routine 01/31/2021 3:19 AM EST documented in this encounter Results * HEMOGLOBIN A1C (01/31/2021 3:19 AM EST) HgbA1C 7.7 % 01/31/2021 4:52 PM EST Comment: Ranges for Diabetic Adults(Diagnosed/Non-) Hemoglobin A1c(%) ??Glycemic Index <8 ?Less Stringent Goal <7 ? General Goal <6.5 ?More Stringent Goal Ranges to Aid in Diagnosis of Diabetes Hemoglobin A1c(%) ??Suggested Diagnosis ? > or = 6.5 ? Diabetic ?5.7 - 6.4 ?Pre-Diabetic <5.7 ? Non-Diabetic eAVG Glucose 174 mg/dL 01/31/2021 4:52 PM EST Blood 01/31/2021 3:19 AM EST 01/31/2021 8:23 AM EST Sle Historical Provider LAB BLOOD ORDERABLES Fi nal Result [facility] [address] [place] [address], [facility] [phone] documented in this encounter Visit Diagnoses Not on filedocumented in this encounter
--- OUTSIDE RECORDS SUMMARY | 2024-02-15 23:03 | XMS_ITS | Encounter Summary ---
Author Organization [employer] Address [address] [place] [address] Care Team Providers Care Electronic Health Records Specialist Name Role Phone Unavailable Primary Care Provider Unavailabl e Encounter Details Date Type Department Care Team (Late st Contact Info) Description 01/31/2021 Historic Encounter [address] [phone] Fredrick Spivey Historical Social History [...] Associated Diagnosis Comments BLOOD GAS ARTERIAL (ABG) ([facility] DATA CONV) Routine 01/31/2021 10:57 AM EST documented in this encounter Results * (ABNORMAL) BLOOD GAS ARTERIAL (ABG) ([facility] DATA CONV) (01/31/2021 10:57 AM EST) $ABG Puncture No 01/31/2021 3:58 PM EST pH Art 7.37 7.35 - 7.45 01/31/2021 4:00 PM EST pCO2 Art 39.4 35.0 - 45.0 mmHg 01/31/2021 4:00 PM EST pO2 Art 195.0(H) 80.0 - 100.0 mmHg 01/31/2021 4:00 PM EST HCO3 Art 22.6 20.0 - 26.0 mmol/L 01/31/2021 4:00 PM EST BE Art -2.5(L) -2.0 - 2.0 mmol/L 01/31/2021 4:00 PM EST sO2 Art >99.1 95.0 - 100.0 % 01/31/2021 4:00 PM EST tHb Art 10.3(L) 12.0 - 18.0 Gram/dL 01/31/2021 4:00 PM EST FH Hb <2.4 % 01/31/2021 4:00 PM EST FIO2 Art 50 01/31/2021 4:00 PM EST Delivery Device Type Art Ventilator 01/31/2021 3:58 PM EST Temperature,F Art 98.6 Deg F 01/31/2021 4:00 PM EST Art Blood Gas (ABG) Site Arterial Line 01/31/2021 3:58 PM EST Acceptable Davis's Test Art Not Applicable Acceptable 01/31/2021 3:58 PM EST Ventilator Mode Art Spontaneous 01/31/2021 3:58 PM EST Respiratory Rate Art 19.0 01/31/2021 3:58 PM EST CPAP/PEEP Art 5.0 cmH2O 01/31/2021 3:58 PM EST Pressure Support Art 10.0 cmH2O 01/31/2021 3:58 PM EST Comment Art supine 01/31/2021 3:58 PM EST ABG Num of Draw Attempts 1 01/31/2021 3:58 PM EST PaO2/FiO2 calculated 390 01/31/2021 4:00 PM EST 01/31/2021 10:5 7 AM EST 01/31/2021 3:57 PM EST [facility] Historical Provider LAB BLOOD ORDERABLES Fi nal Result [facility] [address] [phone] documented in this encounter Visit Diagnoses Not on filedocumented in this encounter
--- OUTSIDE RECORDS SUMMARY | 2024-02-15 23:03 | XMS_ITS | Encounter Summary ---
Author Organization [employer] Address [address] [place] [address] Care Team Providers Care Field Liability Generalist Name Role Phone Unavailable Primary Care Provider Unavailabl e Encounter Details Date Type Department Care Team (Late st Contact Info) Description 02/01/2021 Transcribed Document [facility] [facility] [place] [address] ProviderDick MD [facility] [place] [address] Social History Tobacco Use Types [...] Cerner Conversion Note - Historical ProviderMD - 02/01/2021 9:43 AM 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 Patient: CISCO CAZARES Age: 75 years Sex: Female : 1945 Associated Diagnoses: None Author: NARENDRA JACOBSON MD Subjective intubated Health Status Allergies: Allergic Reactions (Selected) [...] Oral, At Bedtime Lovenox: 30 mg, SubCutaneous, [id number] MiraLax: 17 Gram, Oral, Daily, PRN: Constipation [...] mg, 300 mL, 300 mL/Hr, IV Piggyback, [id number] docusate sodium: 100 mg, Oral, BID doxycycline + Sodium Chloride 0.9% intravenous solution 100 mL: 100 mg, 50 mL/Hr, IV Piggyback, [id number] glucagon: 1 mg, IntraMuscular, Q15Min, PRN: Other (See Comment) glucose 4 g oral tablet, chewable: 16 Gram, 4 Tab, Chew, Q15Min, PRN: Other (See Comment) glucose 40% oral gel: 15 Gram, 37.5 mL, Oral, Q15Min, PRN: Other (See Comment) hydrALAZINE: 10 mg, IV Push, Q3H, PRN: Hypertension hydrOXYzine hydrochloride: 10 mg, Oral, Q6H, PRN: Anxiety insulin regular sliding scale: Scale B, SubCutaneous, Q6H labetalol: 10 mg, IV Push, Q1H, PRN: Hypertension lactobacillus acidophilus: 1 Cap, Oral, BID levothyroxine: 100 mcg, Oral, Daily niCARdipine injection 25 mg + NaCl 0.9% for drip 250 mL: TITRATE, IntraVENous senna: 8.8 mg, Oral, BID Documented Medications [...] mL oral and rectal suspension , Medications (29) Active Scheduled: (13) #NaCl 0.9% *FLUSH* inj 10 mL 10 mL, IV Push, Q12H atorvastatin 40 mg tab 40 mg 1 Tab, Oral, At Bedtime docusate sod 100 mg/10 mL liq 100 mg 10 mL, Oral, BID doxycycline hyclate + NaCl 0.9% 100 mL 100 mg, IV Piggyback, [id number] enoxaparin 30 mg/0.3 ml inj 30 mg 0.3 mL, SubCutaneous, [id number] famotidine 20 mg/2 mL inj 20 mg 2 mL, IV Push, Q12H insulin regular 1 unit/0.01 mL inj 3mL Scale B, SubCutaneous, Q6H lactobacillus acidophilus cap 1 Cap, Oral, BID levothyroxine 100 mcg tab 100 mcg 1 Tab, Oral, Daily linezolid *PREMIX* 600 mg 300 mL, IV Piggyback, [id number] methylPREDNISolone SUCCinate 40 mg inj 40 mg, IV Push, Q12H piperacillin-tazobactam + NaCl 0.9% 50 mL 2.25 Gram, IV Piggyback, Q8HInt senna 8.8 mg/5 mL liq 15 mL 8.8 mg 5 mL, Oral, BID Continuous: (3) NaCl 0.9% 1,000 mL 1,000 mL, IntraVENous, 75 mL/Hr niCARdipine 25 mg + NaCl 0.9% T ITRATE 250 mL 250 mL, IntraVENous NORepinephrine 8 mg + NaCl 0.9% T ITRATE 250 mL 250 mL, IntraVENous PRN: (13) #NaCl 0.9% *FLUSH* inj 10 mL [...] 10 mg 2 mL, IV Push, Q1H polyethylene glycol 3350 pwd 17 g pkt 17 Gram 1 Packet, Oral, Daily Problem list: All Problems Hypertension / SNOMED CT 21263644 / Confirmed, Active Problems (1) Hypertension Objective Intake and Output 24 hour intake, 24 hour output VS/Measurements Vitals Signs (last 24 hrs) Last Charted Minimum Maximum Temp 98 (FEB 01 04:00) 98 (FEB 01 04:00) 98.8 (JAN 31 12:00) Apical HR H 120 (JAN 31 19:45) H 101 (JAN 31 15:15) H 127 (JAN 31 16:28) Mon HR 69 (FEB 01 08:16) 64 (JAN 31 10:00) 121 (JAN 31 16:00) Resp Rate 20 (FEB 01 08:16) 20 (JAN 31 12:07) 20 (JAN 31 12:07) SBP 126 (FEB 01 03:00) 126 (FEB 01 03:00) H 195 (JAN 31 16:00) DBP 75 (FEB 01 03:00) 60 (FEB 01 00:00) H 91 (JAN 31 16:00) MAP 75 (FEB 01 06:00) 70 (FEB 01 01:30) 130 (JAN 31 16:00) SpO2 100 (FEB 01 08:16) L 90 (JAN 31 19:00) 100 (JAN 31 10:00) General: Intubated and sedated. Eye: Pupils are equal, round and reactive to light. HENT: Normocephalic. Neck: Supple, No carotid bruit. Respiratory: Breath sounds are equal, Symmetrical chest wall expansion. Support: Ventilator. Cardiovascular: Normal rate, Regular rhythm. Gastrointestinal: Soft, Non-distended. Musculoskeletal: No deformity. Integumentary: Warm, Dry. Neurologic: Intubated and sedated. Psychiatric: Intubated and sedated. Results Review FEB 01 02:40 141 112 H 32 / H 177 4.1 23 H 2.30 \ FEB 01 02:40 \ L 8.9 / H 15.0 216 / L 26.3 \ Cardiac Markers (Current Encounter/Past 24 Hours) No Cardiac Marker Results Found (Past 24 Hours) Radiology Results (Last 48 hours) [id number] -- 01/29/2021 22:07 CR Chest 1 Vw Portable (01/31/2021 03:17) Result: CLINICAL INDICATION: Pneumonia EXAMINATION TECHNIQUE: CR Chest 1 Vw PortableCOMPARISON:CT chest 01/30/2021. Chest radiograph 01/29/2021FINDINGS:Endotracheal tube tip approximately 4 cm above the rabia, inappropriate position. Nasogastric tube coursing over the esophagus andpassing below the hemidiaphragms with the tip beyond the field of view.Right IJ central line tip at the superior cavoatrial junction.No pneumothorax. Probable trace bilateral pleural effusions. Improvedaeration and decreased bilateral pulmonary opacities. Stablecardiomediastinal silhouette.IMPRESSION:Decreased bilateral pulmonary opacities with improved aeration.Images personally reviewed, interpreted and dictated by ASHLEE Jenkins. Impression and Plan IMPRESSION: PEA cardiopulmonary arrest during stress test at [facility]. ROSC unknown (brief per report) Pressor support Initial rhythm atrial fibrillation post cardiopulmonary arrest, now SR. Amio drip Heart failure with reduced EF/systolic dysfunction EF calculated at 38%, unclear etiology Uncontrolled hypertension Acute hypoxic respiratory failure Ventilation support Bilateral infiltrates TAYLOR PLAN; 02/01/2021 We will initiate carvedilol for better [...]
--- OUTSIDE RECORDS SUMMARY | 2024-02-15 23:03 | XMS_ITS | Encounter Summary ---
Author Organization [employer] Address [address] [place] [id number] Care Team Providers Care Insurance Risk Surveyor Name Role Phone Unavailable Primary Care Provider Unavailabl e Encounter Details Date Type Department Care Team (Late st Contact Info) Description 02/01/2021 Transcribed Document [facility] Family Medicine [facility] [place] [address] ProviderDick MD [address] [place] [address] Social History Tobacco Use Types [...] Conversion Note - Historical ProviderMD - 02/01/2021 8:34 AM ADMINISTRATIVE SERVICES ASSISTANT ACCOUNT MANAGER TRAINEE Note Entered On: 02/02/2021 8:24 EST Performed On: 02/02/2021 8:00 EST by MADELYN COLORADO SLP Pain Assessment Pain Scaled Used : 0-10 Pain scale Pain Score Pre-Intervention : 0 MADELYN COLORADO SLP - 02/02/2021 8:20 EST Image 1 - Images currently included in the form version of this document have not been included in the text rendition version of the form. Dysphagia Exercise Technique Dysphagia Therapy/Treatment Type #1 : Other: Reeval. No overt patterns of oropharyngeal dysphagia with thin, pudding or solids today. MADELYN COLORADO SLP - 02/02/2021 8:20 EST PO Trials Dysphagia Exercise Technique PO Trial #1 PO Trial #2 PO Trial #3 Consistency Trialed : Thin Pureed Regular solids Oral Symptoms : None observed None observed None observed Pharyngeal Signs : None observed None observed None observed MADELYN COLORADO, RAQUEL - 02/02/2021 8:20 EST MADELYN COLORADO, ACCOUNT MANAGER TRAINEE - 02/02/2021 8:20 EST MADELYN COLORADO, ACCOUNT MANAGER TRAINEE - 02/02/2021 8:20 EST Swallow Plan/Goals Swallow LTG Grid ACCOUNT MANAGER TRAINEE Detention Goal #1 ACCOUNT MANAGER TRAINEE Detention Goal #2 Swallow LTG : Establish safe oral diet without aspiration Other: Pt goal: home Status : Goal met Date Met : 02/02/2021 EST MADELYN COLORADO, ACCOUNT MANAGER TRAINEE - 02/02/2021 8:20 EST MADELYN COLORADO, ACCOUNT MANAGER TRAINEE - 02/02/2021 8:20 EST Swallow Goals Grid Goal #1 Swallow STG : Other: Reeval Related To : Aspiration prevention, Return to oral intake Date to Meet : 02/02/2021 EST Status : Goal met Date Met : 02/02/2021 MADELYN OSORIO, ACCOUNT MANAGER TRAINEE - 02/02/2021 8:20 EST Subjective/Assessment/Plan ACCOUNT MANAGER TRAINEE Patient Concern : Patient awake in bed. NG in place. Agreeable to reeval. Per RN, patient with increased O2 requirements over night. ACCOUNT MANAGER TRAINEE Therapy/Treatment Asmt Cmnt : Patient seen for reeval. Voice and volitional cough remain strong. No overt patterns of oropharyngeal dysphagia with any consistency. She is more SOA today. Recommend initiate a regular diet with pacing, and meds per RN. ACCOUNT MANAGER TRAINEE Plan : Regular diet. ST to sign off. MADELYN COLORADO SLP - 02/02/2021 8:20 EST Education Barriers To Learning : None evident Individuals Taught : Patient Readiness to Learn : Cooperative Readiness to Learn : Explanation MADELYN COLORADO SLP - 02/02/2021 8:20 EST ACCOUNT MANAGER TRAINEE Education Assessment Grid 1 Diet Recommendation : Verbalizes understanding Dysphagia : Verbalizes understanding Evaluation Results : Verbalizes understanding MADELYN COLORADO SLP - 02/02/2021 8:20 EST ACCOUNT MANAGER TRAINEE Education Assessment Grid 2 Swallowing, Strategies : Verbalizes understanding MADELYN COLORADO ACCOUNT MANAGER TRAINEE - 02/02/2021 8:[address] [facility] ACCOUNT MANAGER TRAINEE Charges Treatment-Swallowing : 1 MADELYN COLORADO, ACCOUNT MANAGER TRAINEE - 02/02/2021 8:20 EST Anticipated Discharge Needs, ACCOUNT MANAGER TRAINEE Anticipated Discharge to : Extended Care Facility, Rehab, high intensity Recommend Continued Therapy at Discharge : No MADELYN COLORADO, ACCOUNT MANAGER TRAINEE - 02/02/2021 8:20 EST Electronically signed by Parviz, [facility] Conversion Punching Machine Operator Cerner at 06/22/2022 7:29 PM CDT documented in this encounter Plan of Treatment Not on file documented as of this encounter Visit Diagnoses Not on filedocumented in this encounter
--- OUTSIDE RECORDS SUMMARY | 2024-02-15 23:03 | XMS_ITS | Encounter Summary ---
Author Organization [email or web address] Address [address] [place] [address] Care Team Providers Care Waterworks Supervisor Name Role Phone Unavailable Primary Care Provider Unavailabl e Encounter Details Date Type Department Care Team (Late st Contact Info) Description 02/01/2021 Transcribed Document [facility] [place] [facility] [place] [address] ProviderDick MD [address] [place] [address] Social History Tobacco Use Types Packs/Day [...] Conversion Note - Historical ProviderMD - 02/01/2021 8:25 AM TABLE COVER FOLDER Patient: CISCO CAZARES Age: 75 years Sex: Female : 1945 Associated Diagnoses: None Author: WINSTON MORENO MD-INF Basic Information CC: Sepsis, probable aspiration pneumonia History of Present Illness 75 yo female with h/o T2DM, HLD, hypothyroidism, and HTN who presented to [facility] on 01/29/21 by transfer from [facility] for cardiology evaluation. The patient was [...] creatinine of 1.9. She was transferred to [facility]. On arrival on 01/29, her Tlow [...] to give history secondary to mental status. Review of Systems Constitutional: Weakness, No fever, [...] obtain: Due to clinical condition. Health Status Allergies: Allergic Reactions (Selected) No Known Allergies Current medications: Medications by Classification Antimicrobials piperacillin-tazobactam + Sodium Chloride 0.9% intravenous s - 2.25 Gram, IV Piggyback, Inj, Q8HInt, infuse over 3 Hour(s), order duration: 7 Day(s), Routine doxycycline + Sodium Chloride 0.9% intravenous solution 100 - 100 mg, IV Piggyback, Inj, [id number], infuse over 2 Hour(s), order duration: 7 Day(s), Routine linezolid (Zyvox) - 600 mg, IV Piggyback, Inj, [id number], infuse over 1 Hour(s), order duration: 7 Day(s), Routine Immunology methylPREDNISolone (SOLU-Medrol) - 40 mg, IV Push, Inj, Q12H, Routine Anticoagulant enoxaparin (Lovenox) - 30 mg, SubCutaneous, Inj, [id number] Cardiovascular NORepinephrine 8 mg + Sodium Chloride 0.9% intravenous solut - Bag Volume (mL) = 250, Initial Rate: 0.05 mcg/kg/Min, IntraVENous, TITRATE, MAP Greater Than or Equal To 65 mmHg *Duplicate* labetalol - 10 mg, IV Push, Inj, Q1H, PRN for Hypertension, Routine niCARdipine 25 mg + Sodium Chloride 0.9% intravenous solutio - Bag Volume (mL) = 250, Initial Rate: 5 mg/Hr, IntraVENous, TITRATE, SBP Less Than 160 mmHg *Duplicate* atorvastatin (Lipitor) - 40 mg, Oral, Tab, At Bedtime, Routine GI famotidine (Pepcid) - 20 mg, IV Push, Inj, Q12H, Routine docusate (docusate sodium) - 100 mg, Oral, Liquid, BID, Routine polyethylene glycol 3350 (MiraLax) - 17 Gram, Oral, Powder, Daily, PRN for Constipation, Routine senna - 8.8 mg, Oral, Liquid, BID, Routine lactobacillus acidophilus - 1 Cap, Oral, Cap, [...] Tab, Q4H, PRN for Fever, Routine Sedatives dexmedeTOMIDine 400 mcg + Sodium Chloride 0.9% intravenous s - Bag Volume (mL) = 100, Initial Rate: 0.2 mcg/kg/Hr, IntraVENous, TITRATE, RASS Equal to 0 to -2 Vitamins sodium chloride (Normal Saline Flush) - [...] Greater Than or Equal To 65 mmHg Problem list: All Problems Hypertension / SNOMED CT 10404516 / Confirmed, Active Problems (1) Hypertension Histories Past Medical History: Active Hypertension ([id number]), T2DM Hypothyroidism HLD Family History: Unable to obtain., Cancer, heart attack, hyperlipidemia, hypertension Procedure history: No active procedure history items have been selected or recorded., Cardiac catheterization Colonoscopy Colostomy Hysterectomy Thyroidectomy Social History Social & Psychosocial Habits No Data Available . Single, lives in [place], [place]. Denies tobacco, alcohol, or illicit drug use.. EXPOSURE HX: VACCINES: Physical Examination VS/Measurements Vitals Signs (last 24 hrs) Last Charted Minimum Maximum Temp 98 (FEB 01 04:00) 98 (FEB 01 04:00) 98.8 (JAN 31 12:00) Apical HR H 120 (JAN 31 19:45) H 101 (JAN 31 15:15) H 127 (JAN 31 16:28) Mon HR 69 (FEB 01 08:16) 58 (JAN 31 09:00) 121 (JAN 31 16:00) Resp Rate 20 (FEB 01 08:16) 20 (JAN 31 08:31) 20 (JAN 31 08:31) SBP 126 (FEB 01 03:00) 126 (FEB 01 03:00) H 195 (JAN 31 16:00) DBP 75 (FEB 01 03:00) 60 (FEB 01 00:00) H 91 (JAN 31 16:00) MAP 75 (FEB 01 06:00) 70 (FEB 01 01:30) 130 (JAN 31 16:00) SpO2 100 (FEB 01 08:16) L 90 (JAN 31 19:00) 100 (JAN 31 08:31) General: Mild distress, Alert, not oriented, appears stated age resting in bed in the ICU, Not alert and oriented. Eye: Pupils are equal, round and reactive to light, Extraocular movements are intact, Normal conjunctiva. HENT: Normocephalic, Normal hearing, Oral mucosa is moist, No pharyngeal erythema, Ears externally normal, nose externally normal. Neck: Supple, Non-tender, No jugular venous distention, No lymphadenopathy. Respiratory: Respirations are non-labored, Breath sounds are equal, diminished at lung bases bilaterally with a [...] No tenderness, No deformity. Integumentary: Warm, Dry, Dearing, No rash. Neurologic: Alert, Normal sensory, Normal motor function, No focal deficits, Cranial Nerves II-XII are grossly intact, Normal deep tendon reflexes, Not oriented. Cognition and Speech: Speech clear and coherent. Psychiatric: Cooperative, Appropriate mood & affect. Review / Management Results review: Labs (Last four charted values) WBC H 15.0 (FEB 01) H 20.8 (JAN 31) 7.8 (JAN 30) 9.7 (JAN 29) HB L 8.9 (FEB 01) L 10.6 (JAN 31) L 10.9 (JAN 30) 11.7 (JAN 29) HCT L 26.3 (FEB 01) L 30.9 (JAN 31) L 33.4 (JAN 30) 35.3 (JAN 29) Plt 216 (FEB 01) 272 (JAN 31) 262 (JAN 30) 290 (JAN 29) Na 141 (FEB 01) 140 (JAN 31) 138 (JAN 30) 137 (JAN 30) K 4.1 (FEB 01) 4.4 (JAN 31) H 5.3 (JAN 30) H 6.0 (JAN 30) Cl 112 (FEB 01) 110 (JAN 31) 111 (JAN 30) 109 (JAN 30) CO2 23 (FEB 01) 22 (JAN 31) L 18 (JAN 30) 21 (JAN 30) BUN H 32 (FEB 01) H 32 (JAN 31) H 30 (JAN 30) H 29 (JAN 30) Cr H 2.30 (FEB 01) H 2.60 (JAN 31) H 2.50 (JAN 30) H 2.50 (JAN 30) Glu R H 177 (FEB 01) H 182 (JAN 31) H 222 (JAN 30) H 208 (JAN 30) Ca L 7.9 (FEB 01) 9.0 (JAN 31) 8.4 (JAN 30) L 8.3 (JAN 30) Lactic 1.7 (JAN 30) C 3.3 (JAN 30) C 5.0 (JAN 29) PT H 12.5 (JAN 29) INR 1.2 (JAN 29) PTT 31.8 (JAN 29) AST 28 (FEB 01) 29 (JAN 30) 21 (JAN 30) ALT 13 (FEB 01) L 11 (JAN 30) L 11 (JAN 30) ALK P 50 (FEB 01) 55 (JAN 30) 64 (JAN 30) T Bili 0.5 (FEB 01) 0.5 (JAN 30) 0.6 (JAN 30) PTN L 5.5 (FEB 01) L 6.1 (JAN 30) L 5.9 (JAN 30) ALB L 2.4 (FEB 01) L 2.8 (JAN 30) L 2.8 (JAN 30) Troponin C 0.771 (JAN 29) . Radiology results Radiology Results (Last 48 hours) [id number] -- 01/29/2021 22:07 CR Chest 1 Vw [...] reviewed, interpreted and dictated by ASHLEE Jenkins. Diagnostic Findings: ACC: [id number] ORDER: Culture AFB and Stain DATE: 01/30/2021 10:46 SOURCE: Bronchial Alveolar Lavage SITE: Lung R Reports AFB Stain Concentrate 01/31/2021 14:05 No Acid Fast Bacilli seen == ACC: [id number] ORDER: Culture Bronch Wash and Stain DATE: 01/30/2021 10:46 SOURCE: Right Lower Lobe SITE: Reports Pre 01/31/2021 07:02 No growth GS 01/30/2021 14:00 No organisms seen. Few White Blood Cells == ACC: [id number] ORDER: Culture Sputum and Stain DATE: 01/29/2021 23:26 SOURCE: Tracheal Aspirate SITE: Reports Pre 01/31/2021 06:54 Light respiratory georgina isolated GS 01/30/2021 06:17 <25 Epithelial cells/LPF >25 WBC/LPF Rare Gram Positive Cocci in pairs == ACC: [id number] ORDER: Culture Blood DATE: 01/29/2021 22:39 SOURCE: Blood SITE: Reports Pre 02/01/2021 06:02 No growth at 2 days. Pre 01/31/2021 06:01 No growth at 1 day. Pre 01/30/2021 16:01 Culture less than 24 Hrs old == ACC: [id number] ORDER: Culture Blood DATE: 01/29/2021 22:39 SOURCE: Blood SITE: Reports Pre 02/01/2021 06:02 No growth at 2 days. Pre 01/31/2021 06:01 No growth at 1 day. Pre 01/30/2021 16:01 Culture less than 24 Hrs old == ACC: [id number] ORDER: Culture Fungus DATE: 01/30/2021 10:46 SOURCE: Bronchial Alveolar Lavage SITE: Lung R Reports EMMY 01/30/2021 14:00 No Fungal elements seen == . Creatinine Clearance (Current Encounter/Past 24 Hours) Creatinine Level 2.30 mg/dL LA 02/01/2021 04:26 Bun/Creatinine 13.9 02/01/2021 03:27 Estimated Creatinine Clearance 6.34 mL/Min 02/01/2021 03:27 Impression and Plan 1. Severe sepsis/cardiogenic shock on initial presentation with hypothermia, acute respiratory failure, ARF, lactic acidosis, and elevated procalcitonin after PEA arrest and bilateral pneumonia. 2. Bilateral multifocal pneumonia with bronchitis, CAP vs aspiration vs VAP, usual organisms including Streptococcus, Staphylococcus, gram-negative rods. Less likely Legionella. 3. PEA arrest/coded with CPR and ACLS [...] infection. 14. Essential hypertension, dyslipidemia. 15. Hypothyroidism. REC: Thank you for asking us to see Cisco Sage. I recommend the followin. Diagnostically, follow blood and bronchoscopy cultures, physical examination, imaging, CBC, CMP, ESR, CRP, lactic acid, procalcitonin. Check Legionella and Strep pneumo UAg. Check MRSA surveillance culture. 2. Therapeutically, Continue Zosyn renally dosed, doxycycline, and Zyvox. Will need at least 7-10 days of antibiotics until 02/06 and then reassess. 3. Continue O2 support in ICU Plan has been discussed with patient including side effects of medications and line. At increased risk for side effects of abx and line, readmission, and . Winston Moreno MD saw and examined patient, verified findings, reviewed labs and radiographic data, formulated diagnosis, plan for treatment, and all medical decision making. Amari Ennis PA-C/for Dr. Winston Moreno. documented in this encounter Plan of Treatment Not on file documented as of this encounter Visit Diagnoses Not on filedocumented in this encounter
--- OUTSIDE RECORDS SUMMARY | 2024-02-15 23:03 | XMS_ITS | Encounter Summary ---
Author Organization [employer] Address [address] [place] [address] Care Team Providers Care Implementation Technician Name Role Phone Unavailable Primary Care Provider Unavailabl e Encounter Details Date Type Department Care Team (Late st Contact Info) Description 02/01/2021 Transcribed Document [facility] [place] [facility] [place] [address] ProviderDick [place] [address] Social History Tobacco Use Types [...] Conversion Note - Historical ProviderMD - 02/01/2021 6:52 PM LOSS PREVENTION AUDITOR Patient: CISCO CAZARES Age: 75 years Sex: Female : 1945 Associated Diagnoses: None Author: JOLIE PAGAN [facility] Subjective Chief complaint. extubated aake not in distress Health Status [...] Oral, At Bedtime Lovenox: 30 mg, SubCutaneous, [id number] MiraLax: 17 Gram, Oral, Daily, PRN: Constipation [...] mg, 300 mL, 300 mL/Hr, IV Piggyback, T07NFmg amLODIPine: 5 mg, Oral, Daily carvedilol: 6.25 mg, Oral, BID cloNIDine: 0.1 mg, Oral, BID docusate sodium: 100 mg, Oral, BID doxycycline + Sodium Chloride 0.9% intravenous solution 100 mL: 100 mg, 50 mL/Hr, IV Piggyback, [id number] glucagon: 1 mg, IntraMuscular, Q15Min, PRN: Other [...] rectal suspension , Medications (34) Active Scheduled: (17) #NaCl 0.9% *FLUSH* inj 10 mL 10 mL, IV Push, Q12H amLODIPine 5 mg tab 5 mg 1 Tab, Oral, Daily atorvastatin 40 mg tab 40 mg 1 Tab, Oral, At Bedtime carvedilol 6.25 mg tab 6.25 mg 1 Tab, Oral, BID cloNIDine 0.1 mg tab 0.1 mg 1 Tab, Oral, BID docusate sod 100 mg/10 mL liq 100 mg 10 mL, Oral, BID doxycycline hyclate + NaCl 0.9% 100 mL 100 mg, IV Piggyback, [id number] enoxaparin 30 mg/0.3 ml inj 30 mg 0.3 mL, SubCutaneous, [id number] famotidine 20 mg/2 mL inj 20 mg 2 mL, IV Push, Q12H insulin regular 1 unit/0.01 mL inj 3mL Scale B, SubCutaneous, Q6H isosorbide MONOnitrate ER 30 mg tab 90 mg 3 Tab, Oral, Daily lactobacillus acidophilus cap 1 Cap, Oral, BID levothyroxine 100 mcg tab 100 mcg 1 Tab, Oral, Daily linezolid *PREMIX* 600 mg 300 mL, IV Piggyback, O04JPpy methylPREDNISolone SUCCinate 40 mg inj 40 mg, [...] ITRATE 250 mL 250 mL, IntraVENous PRN: (14) #NaCl 0.9% *FLUSH* inj 10 mL 10 [...] Problem list: Medical Hypertension / SNOMED CT 70257576 / Confirmed, Active Problems (1) Hypertension Objective VS/Measurements Vitals Signs (last 24 hrs) Last Charted Minimum Maximum Temp 98.2 (FEB 01 16:00) 98 (FEB 01 04:00) 98.3 (FEB 01 00:00) Apical HR H 110 (FEB 01 18:01) 97 (FEB 01 16:10) H 119 (FEB 01 13:41) Mon HR 110 (FEB 01 18:00) 64 (FEB 01 09:00) 110 (FEB 01 18:00) Resp Rate 20 (FEB 01 14:17) 20 (FEB 01 08:16) 20 (FEB 01 08:16) SBP 126 (FEB 01 03:00) 126 (FEB 01 03:00) H 143 (JAN 31 22:00) DBP 75 (FEB 01 03:00) 60 (FEB 01 00:00) 75 (FEB 01 03:00) MAP 103 (FEB 01 18:00) 70 (FEB 01 01:30) 105 (FEB 01 11:00) SpO2 95 (FEB 01 20:42) L 83 (FEB 01 18:00) 100 (FEB 01 00:30) General: Alert and oriented, No acute distress. Eye: Pupils are equal, round and reactive to light, Normal conjunctiva. HENT: Normocephalic. Neck: Supple. Respiratory: Lungs are clear to auscultation, Respirations are non-labored. Cardiovascular: Normal rate, Regular rhythm. Gastrointestinal: Soft, Non-tender. Musculoskeletal: Normal range of motion, Normal strength. Integumentary: Warm. Neurologic: Alert, Oriented. Psychiatric: Not cooperative, Not appropriate mood & affect. Results Review FEB 01 02:40 141 112 H 32 / H 177 4.1 23 H 2.30 \ FEB 01 02:40 \ L 8.9 / H 15.0 216 / L 26.3 \ FEB 01 02:40 141 112 H 32 / H 177 4.1 23 H 2.30 \ FEB 01 02:40 \ L 8.9 / H 15.0 216 / L 26.3 \ Impression and Plan PEA cardiopulmonary arrest -Occurred at [facility] during a Stress Test with Dr. [...] control d/w RN disposition tele in am still in ICU sick time spent 35 min documented in this encounter Plan of Treatment Not on file documented as of this encounter Visit Diagnoses Not on filedocumented in this encounter
--- OUTSIDE RECORDS SUMMARY | 2024-02-15 23:03 | XMS_ITS | Encounter Summary ---
Author Organization [employer] Address [address] [place] [address] Care Team Providers Care Addiction Social Worker Name Role Phone Unavailable Primary Care Provider Unavailabl e Encounter Details Date Type Department Care Team (Late st Contact Info) Description 01/31/2021 Historic Encounter [address] [phone] ProviderBronwyn Historical Social History Tobacco [...] Date/Time Associated Diagnosis Comments GLUCOSE-POC Routine 01/31/2021 5:57 PM EST documented in this encounter Results * (ABNORMAL) Glucose, Point of Care (01/31/2021 5:57 PM EST) Glucose POC2 132(H) 70 - 110 mg/dL 01/31/2021 10:57 PM EST [facility] Aws Software Development Engineer [id number] 01/31/2021 10:57 PM EST [facility] Device SN [id number] 01/31/2021 10:57 PM EST [facility] Device Comment1 Notified Nurse RBV 01/31/2021 10:57 PM EST [facility] Blood 01/31/2021 5:57 PM EST 01/31/2021 10:58 PM EST [facility] Historical Provider POINT OF CARE TEST JEFFREY MERIDA Final Result [facility] [address] [phone] documented in this encounter Visit Diagnoses Not on filedocumented in this encounter
--- OUTSIDE RECORDS SUMMARY | 2024-02-15 23:03 | XMS_ITS | Encounter Summary ---
Author Organization [employer] Address [address] [place] [id number] Care Team Providers Care Data Collector Name Role Phone Unavailable Primary Care Provider Unavailabl e Encounter Details Date Type Department Care Team (Late st Contact Info) Description 02/01/2021 Transcribed Document [facility] [place] Family Medicine [facility] [place] [address] ProviderDick MD [address] [place] [address] Social History Tobacco Use Types Packs/Day [...] Conversion Note - Historical ProviderMD - 02/01/2021 9:20 AM MARINE ENGINE DRIVER Evaluation, Physical Therapy Entered On: 02/02/2021 13:43 EST Performed On: 02/02/2021 11:02 EST by LUCIANO GOMEZ, LUISANA General Information, PT Visit Type, PT : Initial evaluation Patient Orders : Order Date Order Ordering 01/29/2021 22:39 PT Evaluation and Treatment Ordered By: CHRISTIANO CABEZAS DO-INT 02/01/2021 09:20 PT Evaluation and Treatment Ordered By: CRISTINE RAMEY APRN Active Diagnoses : No Qualifying Diagnoses Therapy Diagnosis, PT : Decreased mobility due to cardiac arrest while doing cardiac stress test. Onset of Problem, PT : 01/29/2021 EST Admission Date : 01/29/2021 22:07 Co-treated by, PT : Occupational Therapist Personal Devices : Personal Devices No Devices Recorded Assistive Devices : Assistive Devices No Devices Recorded Precautions in Place : Fall prevention measures General Information Comment, PT : Pt admitted after having a cardiac arrest while doing cardiac stress test at outside hospital. She has a history of HTN, HLD, DM. LUCIANO GOMEZ, PT - 02/02/2021 13:35 EST General Status Patient Received Status : Supine in bed Treatment Start Time : 02/02/2021 10:47 EST Patient Left Status : Up in chair, RN/PCT informed, Family/Visitors at bedside, All needs met and within reach (Comment: Daughter comes at end of session [LUCIANO GOMEZ, PT - 02/02/2021 13:35 EST] ) Treatment End Time : 02/02/2021 11:02 EST Treatment Time : 15 Minute(s) Actual Treatment Time : 15 Minute(s) LUCIANO GOMEZ, PT - 02/02/2021 13:35 EST History and Environment Living Situation, Therapy : Home Patient Lives With : Alone Persons Assisting Patient at Home : Alone Professional Skilled Services : None Persons Providing Information : Patient Home Equipment Therapy, PT : None Home Setup : One story Bathroom #1 Features : Tub/Shower Stairs : Yes Stair Location(s) : Outside Outside Stairs, Number of Steps : 1 Railing Outside : Yes Outside Railing Position : Left, going up LUCIANO GOMEZ, PT - 02/02/2021 13:35 EST Prior Level of Function PT GRID Prior LOF Ambulation, Household : Independent Prior LOF Ambulation, Community : Independent Prior LOF Bed Mobility : Independent Prior LOF Toileting : Independent Prior LOF Transfer : Independent LUCIANO GOMEZ, PT - 02/02/2021 13:35 EST Upper Extremity Upper Extremity Dominance : Right Right UE Active ROM : WFL Right UE Strength : WFL Left UE Active ROM : WFL Left UE Strength : WFL LUCIANO GOMEZ, PT - 02/02/2021 13:35 EST Lower Extremity RLE Active ROM : WFL Right LE Strength : WFL LLE Active ROM : WFL Left LE Strength : WFL LUCIANO GOMEZ, PT - 02/02/2021 13:35 EST Functional Mobility Mobility Grid Supine to Sit : Rehab Minimal assistance Sit to Stand : Rehab Minimal assistance Bed to Chair : Rehab Minimal assistance Stand to Sit : Rehab Minimal assistance (Comment: of 2 [LUCIANO GOMEZ, PT - 02/02/2021 13:35 EST] ) Supine to Sit Device : Rails Sit to Stand Device : Belt, gait LUCIANO GOMEZ, PT - 02/02/2021 13:35 EST Gait Training/Assessment, PT Weight Bearing Status Maintained : Yes Weight Bearing Status : Full Gait Assistance Level : Assist, minimal (Comment: of 2 [LUCIANO GOMEZ, PT - 02/02/2021 13:35 EST] ) Walking Distance : 4 steps from bed to chair. Ambulatory Devices : Gait belt Gait Deviations : No LUCIANO GOMEZ, PT - 02/02/2021 13:35 EST Activity Tolerance, PT Activity Comment : Pt was able to get to EOB with Min A and then step to recliner with min A of 2. LUCIANO GOMEZ, PT - 02/02/2021 13:35 EST Cognition Assessment, PT Orientation : Oriented x 4 Safety/Judgment Comment : Good Follows Basic Command Assessment : Yes LUCIANO GOMEZ, PT - 02/02/2021 13:35 EST Edu Topics Physical Therapy Education Grid Balance Training : Needs further teaching Bed Mobility Training : Needs further teaching Gait Training : Needs further teaching Role of Physical Therapy : Verbalizes understanding Therapeutic Exercises : Needs further teaching Transfer Training : Needs further teaching LUCIANO GOMEZ, PT - 02/02/2021 13:35 EST Indication Assesessment, PT Physical Therapy Indicated : Yes PT Problem List : Impaired, bed mobility, Impaired, coordination/proprioception, Impaired, endurance tolerance, Impaired, gait, Impaired, standing balance, Impaired, transfers Potential Barriers To Therapy : None evident Rehabilitation Potential : Good LUCIANO GOMEZ, PT - 02/02/2021 13:35 EST Plan of Care, PT PT Tx Plan/Goals Established w Patient : Yes PT Frequency Rehab : Five days per week PT Duration Rehab : Fourteen days PT Treatments Planned : Balance training, Bed mobility training, Gait training, Therapeutic exercises, Transfer training LUCIANO GOMEZ, PT - 02/02/2021 13:35 EST Short Term Goals Mobility/Bed Mobility STG PT Grid Goal #1 Goal #2 Activity : Supine to sit Sit to stand Assist : Supervision or set-up Assist, minimal Equipment : Rail, bed Walker, front wheel Date to Meet : 02/09/2021 EST 02/09/2021 EST Goal Status : Initial goal Initial goal LUCIANO GOMEZ, PT - 02/02/2021 13:35 EST LUCIANO GOMEZ, PT - 02/02/2021 13:35 EST Ambulation STG Grid Goal #1 Device : Walker, front wheel Distance : 50'[ Assist : Assist, minimal Date to Meet : 02/09/2021 EST Goal Status : Intial Goal LUCIANO GOMEZ, PT - 02/02/2021 13:35 EST Assisted Goals Mobility/Bed Mobility LTG PT Grid Goal #1 Activity : Sit to stand Assist : Independent, modified Equipment : Walker, front wheel Date to Meet : 02/16/2021 EST Goal Status : Intial Goal LUCIANO GOMEZ, PT - 02/02/2021 13:35 EST Ambulation LTG Grid Goal #1 Device : Walker, front wheel Distance : 375' Assist : Supervision or set-up Date to Meet : 02/16/2021 EST Goal Status : Intial Goal LUCIANO GOMEZ, PT - 02/02/2021 13:35 EST Treatment Note Subjective Comment : Pt is eager to get OOB to the chair. Daughter comes to visit at end of session and lunch tray arrives. Pt says he was completely ind prior to admit. Assessment : Good effort to do as much for herself as possible. Had good balance on her feet for transfer. Plan for Treatment : Cont PTx JASONJOMAREN, PT - 02/02/2021 13:35 EST Pain Assessment Pain Scaled Used : 0-10 Pain scale Pain Score During-Intervention : 0 JASONJOMAREN, PT - 02/02/2021 13:35 EST Image 1 - Images currently included in the form version of this document have not been included in the text rendition version of the form. Anticipated Discharge Needs, OT/PT Anticipated Discharge to : Home, with home health (Comment: S1 [LUCIANO GOMEZ, PT - 02/02/2021 13:35 EST] ) LUCIANO GOMEZ, PT - 02/02/2021 13:[address] [facility] Charges PT Eval Low Complexity : 1 JASON LUCIANO, PT - 02/02/2021 13:35 EST Electronically signed by Parv[facility] Conversion Map Compiler Cerner at 06/22/2022 7:19 PM CDT documented in this encounter Plan of Treatment Not on file documented as of this encounter Visit Diagnoses Not on filedocumented in this encounter
--- OUTSIDE RECORDS SUMMARY | 2024-02-15 23:03 | XMS_ITS | Encounter Summary ---
Author Organization [employer] Address [address] [place] [address] Care Team Providers Care Barking Machine Feeder Name Role Phone Unavailable Primary Care Provider Unavailabl e Encounter Details Date Type Department Care Team (Late st Contact Info) Description 02/01/2021 Historic Encounter [address] [phone] ProviderFredrick Historical Social History Tobacco [...] Date/Time Associated Diagnosis Comments RBC MORPHOLOGY Routine 02/01/2021 2:40 AM EST documented in this encounter Results * (ABNORMAL) Smear morphology (02/01/2021 2:40 AM EST) RBC Morphology Abnormal 02/01/2021 8:[address] Estimate Adequate Adequate 02/01/2021 8:31 AM EST Anisocytosis 1+(A) 02/01/2021 8:31 AM EST Poikilocytosis 1+(A) 02/01/2021 8:31 AM EST Hypochromia 1+(A) 02/01/2021 8:31 AM EST Ovalocytes 1+(A) 02/01/2021 8:31 AM EST Blood 02/01/2021 2:40 AM EST 02/01/2021 8:01 AM EST Narrative [facility] - 02/01/2021 8:31 AM EST Ordered By Discern Expert Rule us Sleh Historical Provider LAB BLOOD ORDERABLES Fi nal Result Performing Organization Address City/State/[facility] Co de Phone Number [facility] [address] [place] [address] documented in this encounter Visit Diagnoses Not on filedocumented in this encounter
--- OUTSIDE RECORDS SUMMARY | 2024-02-15 23:03 | XMS_ITS | Encounter Summary ---
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
--- OUTSIDE RECORDS SUMMARY | 2024-02-15 23:03 | XMS_ITS | Encounter Summary ---
Author Organization [employer] Address [address] [place] [address] Care Team Providers Care Manager Digital Ad Operations Name Role Phone Unavailable Primary Care Provider Unavailabl e Encounter Details Date Type Department Care Team (Late st Contact Info) Description 02/01/2021 Historic Encounter [address] [address] Provider [facility] Historical Social History Tobacco Use [...] Date/Time Associated Diagnosis Comments GLUCOSE-POC Routine 02/01/2021 5:57 PM EST documented in this encounter Results * (ABNORMAL) Glucose, Point of Care (02/01/2021 5:57 PM EST) Glucose POC2 142(H) 70 - 110 mg/dL 02/01/2021 10:[address] [facility] Clinical Psychologist [phone] 02/01/2021 10:[address] [facility] Device SN [id number] 02/01/2021 10:[address] [facility] Device Comment1 Protocols Followed 02/01/2021 10:[address] [facility] Blood 02/01/2021 5:57 PM EST 02/01/2021 10:58 PM EST [facility] Historical Provider POINT OF CARE TEST JEFFREY MERIDA Final Result [facility] [address] [place] [address], [facility] [phone] documented in this encounter Visit Diagnoses Not on filedocumented in this encounter
--- OUTSIDE RECORDS SUMMARY | 2024-02-15 23:03 | XMS_ITS | Encounter Summary ---
Author Organization [employer] Address [address] [place] [address] Care Team Providers Care Animal Surgeon Name Role Phone Unavailable Primary Care Provider Unavailabl e Encounter Details Date Type Department Care Team (Late st Contact Info) Description 01/30/2021 Historic Encounter [address] [address] Provider, Jessee Jennings MD Social History Tobacco Use Types Packs/Day Years [...] Associated Diagnosis Comments BLOOD GAS ARTERIAL (ABG) ([facility] DATA CONV) Routine 01/30/2021 12:10 AM EST documented in this encounter Results * (ABNORMAL) BLOOD GAS ARTERIAL (ABG) ([facility] BK DATA CONV) (01/30/2021 12:10 AM EST) $ABG Puncture No 01/30/2021 5:16 AM EST pH Art 7.43 7.35 - 7.45 01/30/2021 5:14 AM EST pCO2 Art 24.1(AA) 35.0 - 45.0 mmHg 01/30/2021 5:14 AM EST Comment:Eamon ERGAN notified pO2 Art 160.0(H) 80.0 - 100.0 mmHg 01/30/2021 5:14 AM EST HCO3 Art 15.9(L) 20.0 - 26.0 mmol/L 01/30/2021 5:14 AM EST BE Art -7.1(L) -2.0 - 2.0 mmol/L 01/30/2021 5:14 AM EST sO2 Art >99.1 95.0 - 100.0 % 01/30/2021 5:14 AM EST tHb Art 10.0(L) 12.0 - 18.0 Gram/dL 01/30/2021 5:14 AM EST FH Hb <2.4 % 01/30/2021 5:14 AM EST FIO2 Art 100 01/30/2021 5:14 AM EST Delivery Device Type Art Ventilator 01/30/2021 5:14 AM EST Temperature,F Art 98.6 Deg F 01/30/2021 5:14 AM EST Art Blood Gas (ABG) Site Arterial Line 01/30/2021 5:14 AM EST Acceptable Davis's Test Art Non-Applicable 01/30/2021 5:14 AM EST Ventilator Mode Art AC 01/30/2021 5:14 AM EST Tidal Volume Set Art 400.0 mL 01/30/2021 5:14 AM EST Set Rate Art 16.0 01/30/2021 5:14 AM EST Respiratory Rate Art 16.0 01/30/2021 5:14 AM EST CPAP/PEEP Art 8.0 cmH2O 01/30/2021 5:14 AM EST Comment Art supine 01/30/2021 5:16 AM EST ABG Num of Draw Attempts 1 01/30/2021 5:16 AM EST PaO2/FiO2 calculated 160 01/30/2021 5:16 AM EST 01/30/2021 12:1 0 AM EST 01/30/2021 5:12 AM EST [facility] Historical Provider LAB BLOOD ORDERABLES Final Result [facility] [address] [place], [place] [address] [phone] documented in this encounter Visit Diagnoses Not on filedocumented in this encounter
--- OUTSIDE RECORDS SUMMARY | 2024-02-15 23:03 | XMS_ITS | Encounter Summary ---
Author Organization [employer] Address [address] [place] [address] Care Team Providers Care School Business Administrator Name Role Phone Unavailable Primary Care Provider Unavailabl e Encounter Details Date Type Department Care Team (Late st Contact Info) Description 02/01/2021 Transcribed Document [facility] Pulm & Critical Care Medicine [address] [place] [address] [address] [place] [address] Bianka Birmingham MD [address] [facility] [address] [place] [address] Social History Tobacco Use Types [...] Conversion Note - Bianka Birmingham MD - 02/01/2021 7:06 PM EST Patient: CISCO CAZARES Age: 75 [...] for atrial fibrillation. Patient was transferred to [facility] for further evaluation and higher level [...] UOP for overall fluid balance of +605ml. ICU day: 4 TLDL: 01/30 Infusion Precedex stopped Cardene stop Intake & Output Totals Last 24 Hours (7a-7a) Intake (66 Events) Continuous Infusions (1104.55 mL) Medications (1000.51 mL) Output (2 Events) Sanchez Catheter (1500 mL) Input Total: 2105.06 mL Output Total: 1500 mL Balance: 605.06 mL Review of Systems Constitutional: Weakness, Fatigue, [...] Oral, At Bedtime Lovenox: 30 mg, SubCutaneous, [id number] MiraLax: 17 Gram, Oral, Daily, PRN: Constipation [...] mg, 300 mL, 300 mL/Hr, IV Piggyback, [id number] amLODIPine: 5 mg, Oral, Daily carvedilol: 6.25 mg, Oral, BID cloNIDine: 0.1 mg, Oral, BID docusate sodium: 100 mg, Oral, BID doxycycline + Sodium Chloride 0.9% intravenous solution 100 mL: 100 mg, 50 mL/Hr, IV Piggyback, [id number] glucagon: 1 mg, IntraMuscular, Q15Min, PRN: Other [...] suspension: 0 Refill(s), Medications (34) Active Scheduled: (17) #NaCl 0.9% [...] 0.9% 100 mL 100 mg, IV Piggyback, [id number] enoxaparin 30 mg/0.3 ml inj 30 mg 0.3 mL, SubCutaneous, [id number] famotidine 20 mg/2 mL inj 20 mg 2 mL, IV Push, Q12H insulin regular 1 unit/0.01 mL inj 3mL Scale B, SubCutaneous, Q6H isosorbide MONOnitrate ER 30 mg tab 90 mg 3 Tab, Oral, Daily lactobacillus acidophilus cap 1 Cap, Oral, BID levothyroxine 100 mcg tab 100 mcg 1 Tab, Oral, Daily linezolid *PREMIX* 600 mg 300 mL, IV Piggyback, [id number] methylPREDNISolone SUCCinate 40 mg inj 40 mg, [...] Problem list: Medical Hypertension / SNOMED CT [id number] / Confirmed, Active Problems (1) Hypertension Physical Examination VS/Measurements Vitals Signs (last 24 hrs) Last Charted Minimum Maximum Temp 98.8 (FEB 01 12:00) 98 (FEB 01 04:00) 98.3 (FEB 01 00:00) Apical HR H 110 (FEB 01 18:01) 97 (FEB 01 16:10) H 120 (JAN 31 19:45) Mon HR 97 (FEB 01 16:00) 64 (FEB 01 09:00) 117 (JAN 31 19:15) Resp Rate 20 (FEB 01 14:17) 20 (FEB 01 08:16) 20 (FEB 01 08:16) SBP 126 (FEB 01 03:00) 126 (FEB 01 03:00) H 155 (JAN 31 19:45) DBP 75 (FEB 01 03:00) 60 (FEB 01 00:00) 77 (JAN 31 19:45) MAP 89 (FEB 01 16:00) 70 (FEB 01 01:30) 108 (JAN 31 18:30) SpO2 96 (FEB 01 16:00) L 90 (JAN 31 19:00) 100 (FEB 01 00:30) General: Alert and oriented, Mild distress, On precedex drip, turned off during exam. Eye: Pupils are equal, round and reactive to light, Normal conjunctiva, Exophthalmos. HENT: Normocephalic, Oral mucosa is moist. Neck: Supple, Non-tender, No carotid bruit, No lymphadenopathy. Respiratory: Breath sounds are equal, Symmetrical chest wall expansion, Breath sounds generally clear with diminished breath souns in bilateral bases. . Cardiovascular: Normal rate, Regular rhythm, S1, [...] 01) L 10.6 (JAN 31) L 10.9 (NOV ) 11.7 (NOV ) HCT L 26.3 (FEB 01) L 30.9 (NOV ) L 33.4 (NOV ) 35.3 (NOV ) Plt 216 (NOV ) 272 (NOV ) 262 (NOV ) 290 (NOV ) Na 141 (FEB 01) 140 (NOV ) 138 (NOV ) 137 (JAN 30) K 4.1 (FEB 01) [...] 29) . Radiology Results (Last 48 hours) [id number] -- 01/29/2021 22:07 CR Chest 1 Vw [...] reviewed, interpreted and dictated by ASHLEE Jenkins. CR Chest 1 Vw Portable (02/01/2021 04:55) Result: PORTABLE CHEST 02/01/2021 5:00 AM HISTORY: Pneumonia.COMPARISON: 1 day prior.FINDINGS: Mild cardiomegaly. Moderate diffuse lung opacities areunchanged. Trace right pleural effusion. No pneumothorax. Right IJcentral, tip in SVC. Interval extubation and NG tube removal. IMPRESSION: Interval extubation and NG tube removal. Otherwise unchanged.Images reviewed, interpreted, and dictated by Yifan Pozo DO CT scan of the chest done 01/30/2021 [...] compared to previous x-rays prior to 1125. Microbiology 02/01 MRSA surveillance is pending 01/30 [...] aspiration Non smoker Cardiovascular PEA arrest at [facility], unknown time, brief - most probable respiratory [...] CT head with no acute abnormalities at [facility] 01/29 1600 Acute encephalopathy/resolved . Plan: Pulm [...] are: Patient experienced brief cardiopulmonary arrest at [facility]. I believe given the provided information this was most likely a hypoxemic/respiratory arrest. The code was documented at approximately 1500. Patient had CT scan of the head that was negative for intracranial abnormality. She does have bilateral infiltrates consistent with pneumonia probable aspiration. Patient was transferred to [facility] for further evaluation. Patient was extubated successfully 01/31, her bilateral infiltrate has improved on chest x-ray. BAL culture was negative continue Zosyn/doxy pending cultures we will stop Zyvox.. Supplemental O2 to maintain sats >94% Hemodynamics: Stable off pressors, hypertensive at times Will have RN verify patient's home medications and restart today (will hold lisinopril in setting of TAYLOR) Will restart isosorbide 90mg daily, Nrovasc 2.5mg daily And clonidine 0.1mg TID (patient takes dose of 0.3mg at home) Sedation: DISCONTINUED May use hydroxyzine 10mg PO q6H PRN for anxiety Solumerol 40mg IV q12 ---decrease to 40 q 24 in am Blood culture pending -NGTD Sputum culture Follow BAL MRSA screen pending Antibiotics: On Zosyn 2.25g IV q8, doxycycline 100mg IV q12 and stop Zyvox continue will deescalate per cx Renal is following Will have PT/OT see patient today Speech therapy following, failed bedside eval today, recommend to leave patient NPO Will have RN place small bore NG tube for medications and TF Dietary following Glycemic control: SSIq6 Levothyroxine 100mcg daily (home dose) Prophylaxis: Pepcid/Lovenox sq Will continue to monitor in ICU today. May consider transfer in AM CODE STATUS: Full Disposition: ICU prog : guarded cct 32 mins documented in this encounter Plan of Treatment Not on file documented as of this encounter Visit Diagnoses Not on filedocumented in this encounter
--- OUTSIDE RECORDS SUMMARY | 2024-02-15 23:03 | XMS_ITS | Encounter Summary ---
Author Organization [employer] Address [address] [place] [address] Care Team Providers Care Automotive Repair Technician Name Role Phone Unavailable Primary Care Provider Unavailabl e Encounter Details Date Type Department Care Team (Late st Contact Info) Description 01/31/2021 Transcribed Document [facility] Pulm & Critical Care Medicine [address] [place] [address] [address] [place] [address] Bianka Chow MD [address] [facility] [address] [place] [address] Social History Tobacco Use Types Packs/Day Years Used Date Smoking Tobacco: Never Assessed Comments Unknown Sex and Gender Information Value Date Recorded Sex Assigned at Female 09/02/2021 8:59 PM CDT Legal Sex Female 8:59 PM CDT Gender Identity Female 09/02/2021 8:59 PM CDT Sexual Orientation Not on file documented as of this encounter Miscellaneous Notes * Cerner Conversion Note - Bianka Chow MD - 01/31/2021 2:16 PM EST Patient: CISCO CAZARES Age: 75 years Sex: Female : 1945 Associated Diagnoses: None Author: BIANKA CHOW MD Basic Information Date of consult: 01/29/21 [...] for atrial fibrillation. Patient was transferred to [facility] for further evaluation and higher level [...] commands, mild secretions , proceed to extubate infusions: - levo weaning - Precedex to off - fentanyl off Review of Systems limnited no abnd pain and no chest pain , and she is writing on papers while on vent Health Status Allergies: Allergic Reactions (Selected) No [...] Oral, At Bedtime Lovenox: 30 mg, SubCutaneous, [id number] MiraLax: 17 Gram, Oral, Daily, PRN: Constipation [...] mg, 300 mL, 300 mL/Hr, IV Piggyback, [id number] dexmedeTOMIDine injection 400 mcg + NaCl 0.9% for drip 100 mL: TITRATE, IntraVENous docusate sodium: 100 mg, Oral, BID doxycycline + Sodium Chloride 0.9% intravenous solution 100 mL: 100 mg, 50 mL/Hr, IV Piggyback, [id number] fentaNYL injection 2,000 mcg + Dextrose 5% [...] oral and rectal suspension: 0 Refill(s), Medications (28) Active Scheduled: (13) #NaCl 0.9% *FLUSH* inj 10 mL 10 mL, IV Push, Q12H atorvastatin 40 mg tab 40 mg 1 Tab, Oral, At Bedtime docusate sod 100 mg/10 mL liq 100 mg 10 mL, Oral, BID doxycycline hyclate + NaCl 0.9% 100 mL 100 mg, IV Piggyback, Y76XMms enoxaparin 30 mg/0.3 ml inj 30 mg 0.3 mL, SubCutaneous, [id number] famotidine 20 mg/2 mL inj 20 mg 2 mL, IV Push, Q12H insulin regular 1 unit/0.01 mL inj 3mL Scale B, SubCutaneous, Q6H lactobacillus acidophilus cap 1 Cap, Oral, BID levothyroxine 100 mcg tab 100 mcg 1 Tab, Oral, Daily linezolid *PREMIX* 600 mg 300 mL, IV Piggyback, [id number] methylPREDNISolone SUCCinate 40 mg inj 40 mg, [...] Problem list: Medical Hypertension / SNOMED CT [id number] / Confirmed, Active Problems (1) Hypertension Physical Examination VS/Measurements Vitals Signs (last 24 hrs) Last Charted Minimum Maximum Temp 98.3 (JAN 31 04:00) 98 (JAN 31 00:00) 98.3 (JAN 30 20:00) Mon HR 85 (JAN 31 12:38) 56 (JAN 31 00:30) 96 (JAN 31 03:15) Resp Rate 20 (JAN 31 12:38) 20 (JAN 31 08:31) H 28 (JAN 30 23:40) SBP H 144 (JAN 31 10:00) 113 (JAN 30 14:00) H 173 (JAN 31 06:00) DBP 65 (JAN 31 10:00) L 56 (JAN 31 08:00) 75 (JAN 31 06:00) MAP 88 (JAN 31 10:00) 73 (JAN 30 14:00) 114 (JAN 31 06:30) SpO2 98 (JAN 31 12:38) 94 (JAN 31 12:09) 100 (JAN 30 13:30) General: was Sedated on the ventilator, now in SAT and SBT rass 0 cam neg . Eye: Pupils are equal, round and reactive to light, Normal conjunctiva, Exophthalmos. HENT: Normocephalic. Neck: Supple, Non-tender, No carotid bruit. Respiratory: Breath sounds are equal, On ventilator, breath sounds decreased in the bases, no rhonchi or wheezing. Cardiovascular: Normal rate, Regular rhythm, S1, S2, Good pulses equal in all extremities, Normal peripheral perfusion. Gastrointestinal: Soft, nondistended, hypoactive bowel sounds. Genitourinary: Support: Urinary catheter ( Indwelling ). Musculoskeletal: No swelling, No deformity. Integumentary: Warm, Intact. Neurologic: was Sedated on the ventilator, now in SAT and SBT rass 0 cam neg . Review / Management JAN 31 03:19 140 110 H 32 / H 182 4.4 22 H 2.60 \ Results review: Labs (Last four charted values) WBC H 20.8 (JAN 31) 7.8 (JAN 30) 9.7 (JAN 29) HB L 10.6 (JAN 31) L 10.9 (JAN 30) 11.7 (JAN 29) HCT L 30.9 (JAN 31) L 33.4 (JAN 30) 35.3 (JAN 29) Plt 272 (JAN 31) 262 (JAN 30) 290 (JAN 29) Na 140 (JAN 31) 138 (JAN 30) 137 (JAN 30) 137 (JAN 30) K 4.4 (JAN 31) H 5.3 (JAN 30) H 6.0 (JAN 30) C 6.4 (JAN 30) Cl 110 (JAN 31) 111 (JAN 30) 109 (JAN 30) 108 (JAN 30) CO2 22 (JAN 31) L 18 (JAN 30) 21 (JAN 30) 21 (JAN 30) BUN H 32 (JAN 31) H 30 (JAN 30) H 29 (JAN 30) H 29 (JAN 30) Cr H 2.60 (JAN 31) H 2.50 (JAN 30) H 2.50 (JAN 30) H 2.40 (JAN 30) Glu R H 182 (JAN 31) H 222 (JAN 30) H 208 (JAN 30) H 218 (JAN 30) Ca 9.0 (JAN 31) 8.4 (JAN 30) L 8.3 (JAN 30) 8.5 (JAN 30) Lactic 1.7 (JAN 30) C 3.3 (JAN 30) C 5.0 (JAN 29) PT H 12.5 (JAN 29) INR 1.2 (JAN 29) PTT 31.8 (JAN 29) AST 29 (JAN 30) 21 (JAN 30) ALT L 11 (JAN 30) L 11 (JAN 30) ALK P 55 (JAN 30) 64 (JAN 30) T Bili 0.5 (JAN 30) 0.6 (JAN 30) PTN L 6.1 (JAN 30) L 5.9 (JAN 30) ALB L 2.8 (JAN 30) L 2.8 (JAN 30) Troponin C 0.771 (JAN 29) . Radiology Results (Last 48 hours) [id number] -- 01/29/2021 22:07 CR Chest 1 Vw Portable (01/29/2021 23:21) Result: AP PORTABLE CHESTCLINICAL HISTORY: Endotracheal tube placement.COMPARISON: None.FINDINGS: An AP portable view of the chest was obtained. Theendotracheal tube ends at level of the clavicles. An NG tube ends in thestomach. The heart is within the upper limits of normal in size. Thereare bilateral near diffuse airspace opacities with sparing of the apicesthat may represent pulmonary edema, pneumonia or ARDS. There is nopneumothorax.IMPRESSION: Endotracheal tube appropriately positioned. Bilateral neardiffuse lung opacities.Images reviewed, interpreted, and dictated by Dr. Jayson Mao.Transcribed by Alec Gonzalez.I have personally viewed, interpreted and dictated the examination. Ihave read and agree with the above final transcribed report. CT Chest WO (01/30/2021 02:31) Result: CT SCAN OF THE CHEST WITHOUT CONTRAST 01/30/2021 12:19 AM HISTORY: Cough.COMPARISON: None.PROCEDURE: The patient was injected with IV contrast. Axial images wereobtained from the lung apex to the mid abdomen by computed tomography.This study was performed with techniques to keep radiation doses as lowas reasonably achievable, (ALARA). Individualized dose reductiontechniques using automated exposure control or adjustment of mA and/orkV according to the patient size were employed.FINDINGS: CHEST:Patient is intubated, with the ET tube terminating below the thoracicinlet. Right internal jugular central venous catheter terminates at thesuperior cavoatrial junction. An enteric tube terminates in the gastricpylorus.Heart is normal in size. No pericardial effusion. Scattered multivesselcoronary artery calcifications. Thoracic aorta is normal in caliber andcourse.Basilar predominant extensive bilateral consolidative airspaceopacities. Fekhx-pw-irojfewa bilateral pleural effusions. Nopneumothorax.No mediastinal or axillary lymphadenopathy.No acuteAbdomen findings. Colonic diverticulosis without evidence ofdiverticulitis.IMPRESSION:1. Extensive diffuse bilateral consolidative opacities is consistentmultifocal pneumonia.2. Oaeke-ht-qzmrpvbw bilateral pleural effusions. CR Chest 1 Vw Portable (01/31/2021 03:17) [...] reviewed, interpreted and dictated by ASHLEE Jenkins. CT scan of the chest done 01/30/2021 reviewed and visualized and patient has extensive bilateral opacities/consolidations very minimal pleural effusions (I disagree with the blood moderate) ET tube in appropriate place. Patient has a right internal jugular ending in SVC. CXR 01/31: improvement in aeration and decreased infiltrates ETT in good place no pneumo COVID-19 is negative Blood cultures pending Sputum culture is pending BAL is pending. Impression and Plan Acute hypoxemic respiratory failure Intubated sec to CP arrest/unclear time to ROSC Unclear if the patient had aspiration in outside hospital However patient has dense consolidations mid to lower lungs bilaterally highly likely aspiration pneumonitis versus bacterial pneumonia Bilateral infiltrates on cxr: Right lung field greater than left. Obtain and reviewed CT chest WO: Bilateral infiltrates with severe consolidation. Likely community-acquired pneumonia vs aspiration Non smoker Cardiovascular PEA arrest at [facility], unknown time, brief - most probable respiratory arrest vs other History of hypertension Renal Acute kidney injury, non-oliguric Infectious disease Septic shock Bilateral infiltrates with consolidation: Probable community-acquired pneumonia Versus aspiration pneumonitis Endocrinology Type 2 diabetes mellitus Hypothyroidism on levothyroxine at home exophthalmus GI/Nutrition Stable Hem/Onc No leukocytosis Mild anemia Neurology Post CP arrest. On ventilator without sedation, unresponsive - patient now arouses and follows commands 01/30 CT head with no acute abnormalities at [facility] 01/29 1600 Acute encephalopathy/improved patient is responding. Plan: Pulm and CCM Attending Note: I [...] are: Patient experienced brief cardiopulmonary arrest at [facility]. I believe given the provided information this was most likely a hypoxemic/respiratory arrest. The code was documented at approximately 1500. Patient had CT scan of the head that was negative for intracranial abnormality. She does have bilateral infiltrates consistent with pneumonia probable aspiration. Patient was transferred to [facility] for further evaluation. pt is following commands and now in SAT and SBT rass 0 cam ICU neg Will extend antibiotic coverage to include Zosyn, doxycycline, Zyvox. Patient had diagnostic bronchoscopy with BAL/cultures.01/30 pending will proceed to extubate Vent bundle Vent settings: TV 400, rate 16, PEEP 8 Wean FiO2 for spO2>94% Hemodynamically on norepinephrine, maintain MAP greater than 65 Will add vasopressin 0.03 units/min in conjunction with norepinephrine exceeding 0.15 mcg/kg/min Patient woke up and followed commands. Will discontinue neurology consult Sedation: Precedex and fentanyl, goal RASS -2/-1 Glycemic control: SSIq6 levothyroxine 100mcg daily (home dose) Prophylaxis: Pepcid/Lovenox sq Blood culture Sputum culture Follow BAL Obtain pneumonia panel Antibiotics: On Zosyn 2.25g IV q8, doxycycline 100mg IV q12 and Zyvox 600mg IV q12 continue will deescalate per cx , continue for now Solumerol 40mg IV q12 Consult dietitian, start tube feeding via corpak Will have nephrology evaluate for worsening acute kidney injury in setting of septic shock, appreciate input CODE STATUS: Full Disposition: ICU prog : guarded discussed with daughter at bed side serina chow cct 40 mins documented in this encounter Plan of Treatment Not on file documented as of this encounter Visit Diagnoses Not on filedocumented in this encounter
--- OUTSIDE RECORDS SUMMARY | 2024-02-15 23:03 | XMS_ITS | Encounter Summary ---
Author Organization [employer] Address [address] [place] [address] Care Team Providers Care Technology Sales Representative Name Role Phone Unavailable Primary Care Provider Unavailabl e Encounter Details Date Type Department Care Team (Late st Contact Info) Description 02/01/2021 Transcribed Document [facility] Family Medicine On license of [facility] [place] [address] ProviderDick MD [address] [place] [address] Social History Tobacco Use Types [...] Conversion Note - Historical ProviderMD - 02/01/2021 10:08 AM MODEL MAKING SUPERVISOR Clinical Dietitian Note Entered On: 02/01/2021 10:09 EST Performed On: 02/01/2021 10:08 EST by Arianna Jack Dietitipedro luis Clinical Dietitian Note Clinical Dietitian Note : 02/01: Check on. Discussed pt with nursing. Pt was extubated yesterday and had a ASSISTANT TRACK AND FIELD COACH eval this morning. She will remain NPO at this time. Plans for NGT placement and EN initiation per pulmonary. ASSISTANT TRACK AND FIELD COACH to re-eval tomorrow morning as they suspect a quick recovery. Est nutrient needs: [id number] kcals (14-16 kcal/kg), 90-100g pro (1.2 g/kg ABW vs 2.0 g/kg IBW) Recommendations: 1. Place NGT per pulmonary and initiate Vital HP @ 10ml/hr. AAT to a goal rate of 55ml/hr (1210 kcals, 106g pro). FW per MD. Goal: meet est needs 2. Once feasible, advance diet per MD and ASSISTANT TRACK AND FIELD COACH + cardiac, 60g CHO. RD to assess for supplements Goal: tolerate PO diet advancement 3. Monitor weight 2x weekly Goal: prevent unintentional wt changes 4. Optimize Glucose level Goal: glu 100-180 High nutrition risk Arianna Jack, Dietitian - 02/01/2021 10:08 EST documented in this encounter Plan of Treatment Not on file documented as of this encounter Visit Diagnoses Not on filedocumented in this encounter
--- OUTSIDE RECORDS SUMMARY | 2024-02-15 23:03 | XMS_ITS | Encounter Summary ---
Author Organization [employer] Address [address] [place] [address] Care Team Providers Care Nuclear Medicine Technician Name Role Phone Unavailable Primary Care Provider Unavailabl e Encounter Details Date Type Department Care Team (Late st Contact Info) Description 01/30/2021 Historic Encounter [facility] [address] [place] [address] ProviderBronwyn Historical Social History Tobacco Use [...] Priority Date/Time Associated Diagnosis Comments GLUCOSE-POC Routine 01/30/2021 5:20 AM EST documented in this encounter Results * (ABNORMAL) Glucose, Point of Care (01/30/2021 5:20 AM EST) Glucose POC2 150(H) 70 - 110 mg/dL 01/30/2021 10:20 AM EST [facility] Material Yard Clerk [id number] 01/30/2021 10:20 AM EST [facility] Device SN [id number] 01/30/2021 10:20 AM EST [facility] Device Comment1 Notified Nurse RBV 01/30/2021 10:20 AM EST [facility] Blood 01/30/2021 5:20 AM EST 01/30/2021 10:21 AM EST [facility] Historical Provider POINT OF CARE TEST JEFFREY MERIDA Final Result [facility] [address] [phone] documented in this encounter Visit Diagnoses Not on filedocumented in this encounter
--- OUTSIDE RECORDS SUMMARY | 2024-02-15 23:03 | XMS_ITS | Encounter Summary ---
Author Organization [employer] Address [address] [place] [address] Care Team Providers Care Pest Control Applicator Name Role Phone Unavailable Primary Care Provider Unavailabl e Encounter Details Date Type Department Care Team (Late st Contact Info) Description 01/31/2021 Transcribed Document [facility] Family Medicine [facility] [place] [address] ProviderDick MD [address] [place] [address] Social History Tobacco Use Types Packs/Day [...] Conversion Note - Historical ProviderMD - 01/31/2021 5:11 PM SHIPPING SUPERVISOR Patient: CISCO CAZARES Age: 75 Years Sex: Female : 1945 Chief Complaint Cardiac arrest Reason for Consultation Hyperkalemia, elevated serum creatinine, acute kidney injury versus chronic kidney disease History of Present Illness Ms. Cazares is a 75-year-old -[place] woman with a past medical history significant for diabetes mellitus who had sudden cardiac arrest during stress testing. Laboratory data show that she had severe hyperkalemia and abnormal kidney function. At the time of my examination, she is intubated but fully awake. She communicates with me by writing notes. Her daughter is also at the bedside and provide some history. She has a history of hypertension. She is unaware of pre-existing kidney disease. She's not been seen by nephrology as an outpatient. She is unaware of any previous kidney dysfunction and she's never had urologic surgery. She received medical therapy for her hyperkalemia but her kidney function remained elevated. Her serum creatinine has ranged between 2.2-2.6 mg/dL during this hospitalization. I do not have access to previous outpatient laboratory results. Currently, she is anticipating extubation. She is on a spontaneous breathing trial. She has good urine output and her Sanchez collection bag. She denies active physical complaints such as chest pain or fevers. She is breathing comfortably on the ventilator. Review of Systems It was difficult to collect a comprehensive review of systems due to her intubation and mechanical ventilator support Vital Signs T: 36.7 ??C TMIN: 36.7 ??C TMAX: 37.1 ??C HR: 68(Monitored) RR: 20 BP: 126/75 BP: 116/54(Line) SpO2: 100% Oxygen Settings (Last) Oxygen Therapy Mode: Nasal cannula (02/01/21 04:00:00) Oxygen Flow Rate: 4 Liter/Min (01/31/21 20:15:00) Physical Exam General: Alert, Intubated, awake, communicative, and cooperative HEENT: No temporal wasting, no scleral icterus, no conjunctival erythema Neck: Supple, no masses, normal range of motion Cardiovascular: S1-S2, regular rhythm, normal rate Pulmonary: Lungs clear to auscultation bilaterally, no wheezes rales or rhonchi, Intubated on spontaneous breathing trial Gastrointestinal: Abdomen is soft, nontender, no guarding, nondistended Genitourinary: Sanchez catheter draining Amanda urine Musculoskeletal: Good muscle tone, no lower extremity edema Neuro/psych: Moves all extremities spontaneously, alert and oriented, thoughts are fluent and appropriate Skin: No lesions, rashes or ecchymoses Assessment/Plan Acute kidney injury versus chronic kidney disease stage III Diabetes mellitus Hypertension Hyperkalemia, resolved Cardiopulmonary arrest, improved Shock, improved Acute kidney injury versus chronic kidney disease stage III: She has multiple factors which could have contributed to chronic kidney disease such as diabetes and hypertension. I suspect that her hyperkalemia was a significant factor in her cardiopulmonary arrest. She is globally improving and I anticipate that she'll be extubated soon. Her blood pressure is stable. Her urine output is good and her electrolytes have stabilized also. Hopefully, with supportive care, blood pressure control, diabetes control and pulmonary management, her kidney function will stabilize to her baseline. We can check for factor such as renal cortical echogenicity on ultrasound to assess for signs of chronic kidney disease. We will also screen for the metabolic sequelae of chronic kidney disease. I'm reassured that she is globally stabilizing. I've made no changes to her treatment plan today. We will continue to monitor her clearance, electrolytes, volume status, blood pressure and the metabolic sequelae of reduced kidney function. Franck Huang MD -Nephrology Note dictated with [employer] recognition system Partner with Dr. Razo, Dr. Rodriguez and Dr. Shay Problem List/Past Medical History Diabetes mellitus type 2 Hypertension Chronic kidney disease stage III? Hypercholesterolemia Medications Inpatient dexmedeTOMIDine injection 400 mcg + NaCl 0.9% for drip 100 mL Dextrose 50% injection, 25 Gram= 50 mL, IV Push, Q15Min, PRN Dextrose 50% injection, 25 Gram= 50 mL, IV Push, Q15Min, PRN Dextrose 50% injection, 25 Gram= 50 mL, IV Push, Q15Min, PRN Dextrose 50% injection, 12.5 Gram= 25 mL, IV Push, Q15Min, PRN docusate sodium, 100 mg= 10 mL, Oral, BID doxycycline + Sodium Chloride 0.9% intravenous solution 100 mL fentaNYL injection 2,000 mcg + Dextrose 5% in Water for Drip 60 mL glucagon, 1 mg= 1 mL, IntraMuscular, Q15Min, PRN glucose 4 g oral tablet, chewable, 16 Gram= 4 Tab, Chew, Q15Min, PRN glucose 40% oral gel, 15 Gram= 37.5 mL, Oral, Q15Min, PRN hydrALAZINE, 10 mg= 0.5 mL, IV Push, Q3H, PRN insulin regular sliding scale, Scale B, SubCutaneous, Q6H labetalol, 10 mg= 2 mL, IV Push, Q1H, PRN lactobacillus acidophilus, 1 Cap, Oral, BID levothyroxine, 100 mcg= 1 Tab, Oral, Daily Lipitor, 40 mg= 1 Tab, Oral, At Bedtime Lovenox, 30 mg= 0.3 mL, SubCutaneous, [id number] MiraLax, 17 Gram= 1 Packet, Oral, Daily, PRN niCARdipine injection 25 mg + NaCl 0.9% for drip 250 mL NORepinephrine injection 8 mg + NaCl 0.9% for drip 250 mL Normal Saline 1,000 mL, 1000 mL, IntraVENous Normal Saline Flush, 10 mL, IV Push, Q12H Normal Saline Flush, 10 mL, IV Push, See Comment, PRN Pepcid, 20 mg= 2 mL, IV Push, Q12H senna, 8.8 mg= 5 mL, Oral, BID SOLU-Medrol, 40 mg, IV Push, Q12H Tylenol, 650 mg= 2 Tab, Oral, Q4H, PRN vasopressin injection 20 Units [0.03 Units/min] + Dextrose 5% in Water for Drip 100 mL Zosyn + Sodium Chloride 0.9% intravenous solution 50 mL Zyvox, 600 mg= 300 mL, IV Piggyback, [id number] Home amLODIPine 2.5 mg oral tablet clonidine 0.3 mg oral tablet furosemide 40 mg oral tablet glipiZIDE 10 mg oral tablet, extended release isosorbide mononitrate 60 mg oral tablet, extended release levothyroxine 100 mcg (0.1 mg) oral tablet, 100 mcg= 1 Tab, Oral, Daily lisinopril 20 mg oral tablet pioglitazone 45 mg oral tablet simvastatin 20 mg oral tablet sodium polystyrene sulfonate 15 g/60 mL oral and rectal suspension Allergies No Known Allergies Lab Results Test Name Test Result Date/Time pH Art 7.37 01/31/2021 10:57 EST pH Art 7.45 01/31/2021 06:11 EST pCO2 Art 39.4 mmHg 01/31/2021 10:57 EST pCO2 Art 34.0 mmHg (Low) 01/31/2021 06:11 EST pO2 Art 195.0 mmHg (High) 01/31/2021 10:57 EST pO2 Art 257.0 mmHg (High) 01/31/2021 06:11 EST HCO3 Art 22.6 mmol/L 01/31/2021 10:57 EST HCO3 Art 23.6 mmol/L 01/31/2021 06:11 EST BE Art -2.5 mmol/L (Low) 01/31/2021 10:57 EST BE Art 0.0 mmol/L 01/31/2021 06:11 EST sO2 Art >99.1 % 01/31/2021 10:57 EST sO2 Art >100.0 % 01/31/2021 06:11 EST tHb Art 10.3 Gram/dL (Low) 01/31/2021 10:57 EST tHb Art 10.8 Gram/dL (Low) 01/31/2021 06:11 EST FHHb <2.4 % 01/31/2021 10:57 EST FHHb <2.4 % 01/31/2021 06:11 EST FIO2 Art 50 01/31/2021 10:57 EST FIO2 Art 60 01/31/2021 06:11 EST Delivery Device Type Art Ventilator 01/31/2021 10:57 EST Delivery Device Type Art Ventilator 01/31/2021 06:11 EST Temperature, F Art 98.6 Deg F 01/31/2021 10:57 EST Temperature, F Art 98.6 Deg F 01/31/2021 06:11 EST Art Blood Gas (ABG) Site Arterial Line 01/31/2021 10:57 EST Art Blood Gas (ABG) Site Arterial Line 01/31/2021 06:11 EST Acceptable Davis's Test Art NA 01/31/2021 10:57 EST Acceptable Davis's Test Art Non-Applicable 01/31/2021 06:11 EST Ventilator Mode Art Spontaneous 01/31/2021 10:57 EST Ventilator Mode Art AC 01/31/2021 06:11 EST Tidal Volume Set Art 400.0 mL 01/31/2021 06:11 EST Set Rate Art 16.0 01/31/2021 06:11 EST Respiratory Rate Art 19.0 01/31/2021 10:57 EST Respiratory Rate Art 17.0 01/31/2021 06:11 EST CPAP/PEEP Art 5.0 cmH2O 01/31/2021 10:57 EST CPAP/PEEP Art 10.0 cmH2O 01/31/2021 06:11 EST Pressure Support Art 10.0 cmH2O 01/31/2021 10:57 EST Comment Art supine 01/31/2021 10:57 EST Comment Art supine 01/31/2021 06:11 EST ABG Num of Draw Attempts 1 01/31/2021 10:57 EST ABG Num of Draw Attempts 1 01/31/2021 06:11 EST PaO2/FiO2 calculated 390 01/31/2021 10:57 EST PaO2/FiO2 calculated 428 01/31/2021 06:11 EST Sodium Level 141 mmol/L 02/01/2021 02:40 EST Potassium Level 4.1 mmol/L 02/01/2021 02:40 EST Chloride Level 112 mmol/L 02/01/2021 02:40 EST Carbon Dioxide Level 23 mmol/L 02/01/2021 02:40 EST Anion Gap 10 02/01/2021 02:40 EST Glucose Level 177 mg/dL (High) 02/01/2021 02:40 EST Blood Urea Nitrogen 32 mg/dL (High) 02/01/2021 02:40 EST Creatinine Level 2.30 mg/dL (High) 02/01/2021 02:40 EST eGFR 25 mL/min/1.73m2 (Low) 02/01/2021 02:40 EST eGFR NonAfrican 21 mL/min/1.73m2 (Low) 02/01/2021 02:40 EST Bun/Creatinine 13.9 02/01/2021 02:40 EST Calcium Level 7.9 mg/dL (Low) 02/01/2021 02:40 EST Protein Total 5.5 Gram/dL (Low) 02/01/2021 02:40 EST Albumin Level 2.4 Gram/dL (Low) 02/01/2021 02:40 EST Globulin 3.1 Gram/dL 02/01/2021 02:40 EST A/G Ratio 0.8 (Low) 02/01/2021 02:40 EST Bilirubin Total 0.5 mg/dL 02/01/2021 02:40 EST Alk Phos 50 Units/Liter 02/01/2021 02:40 EST AST 28 Units/Liter 02/01/2021 02:40 EST ALT 13 Units/Liter 02/01/2021 02:40 EST Magnesium Level 2.0 mg/dL 02/01/2021 02:40 EST Device Comment 1 Notified Nurse RBV 01/31/2021 23:32 EST Device Comment 1 Notified Nurse RBV 01/31/2021 17:57 EST Device Comment 1 Notified Nurse RBV 01/31/2021 11:46 EST Device Comment 1 Notified Nurse RBV 01/31/2021 05:35 EST Glucose POC2 170 mg/dL (High) 01/31/2021 23:32 EST Glucose POC2 132 mg/dL (High) 01/31/2021 17:57 EST Glucose POC2 155 mg/dL (High) 01/31/2021 11:46 EST Glucose POC2 126 mg/dL (High) 01/31/2021 05:35 EST Calcium Ionized 1.14 mmol/L 02/01/2021 02:40 EST WBC 15.0 K/uL (High) 02/01/2021 02:40 EST RBC 2.80 Million/uL (Low) 02/01/2021 02:40 EST Hgb 8.9 g/dL (Low) 02/01/2021 02:40 EST Hct 26.3 % (Low) 02/01/2021 02:40 EST MCV 93.9 fL 02/01/2021 02:40 EST MCH 31.8 pg 02/01/2021 02:40 EST MCHC 33.8 Gram/dL 02/01/2021 02:40 EST Platelet Count 216 K/uL 02/01/2021 02:40 EST MPV 11.0 fL 02/01/2021 02:40 EST RDW 16.0 % (High) 02/01/2021 02:40 EST Neut % 90.5 % (High) 02/01/2021 02:40 EST Neut # 13.60 K/uL (High) 02/01/2021 02:40 EST Lymph % 4.0 % (Low) 02/01/2021 02:40 EST Lymph # 0.60 x10(3)/uL (Low) 02/01/2021 02:40 EST [place] % 4.1 % 02/01/2021 02:40 EST [place] # 0.62 K/uL 02/01/2021 02:40 EST Eos % 0.0 % 02/01/2021 02:40 EST Eos # 0.00 x10(3)/uL 02/01/2021 02:40 EST Baso % 0.2 % 02/01/2021 02:40 EST Baso # 0.03 x10(3)/uL 02/01/2021 02:40 EST RBC Morphology Abnormal 02/01/2021 02:40 EST Anisocytosis 1+ (Abnormal) 02/01/2021 02:40 EST Poikilocytosis 1+ (Abnormal) 02/01/2021 02:40 EST Hypochromia 1+ (Abnormal) 02/01/2021 02:40 EST Ovalocytes 1+ (Abnormal) 02/01/2021 02:[address] Estimate Adequate 02/01/2021 02:40 EST IG# 0.18 x10(3)/uL (High) 02/01/2021 02:40 EST IG% 1.20 % (High) 02/01/2021 02:40 EST Electronically signed by Parviz, [facility] Conversion Traveler Changer Cerner at 06/22/2022 7:39 PM CDT documented in this encounter Plan of Treatment Not on file documented as of this encounter Visit Diagnoses Not on filedocumented in this encounter
--- OUTSIDE RECORDS SUMMARY | 2024-02-15 23:03 | XMS_ITS | Encounter Summary ---
Author Organization [employer] Address [address] [place] [address] Care Team Providers Care Coater Smoking Pipe Name Role Phone Unavailable Primary Care Provider Unavailabl e Encounter Details Date Type Department Care Team (Late st Contact Info) Description 01/31/2021 Historic Encounter [address] [address] ProviderBronwyn Historical Social History Tobacco [...] Date/Time Associated Diagnosis Comments GLUCOSE-POC Routine 01/31/2021 5:35 AM EST documented in this encounter Results * (ABNORMAL) Glucose, Point of Care (01/31/2021 5:35 AM EST) Glucose POC2 126(H) 70 - 110 mg/dL 01/31/2021 10:[address] [facility] Civil Attorney [id number] 01/31/2021 10:[address] [facility] Device SN [id number] 01/31/2021 10:[address] [facility] Device Comment1 Notified Nurse RBV 01/31/2021 10:[address] [facility] Blood 01/31/2021 5:35 AM EST 01/31/2021 10:37 AM EST [facility] Historical Provider POINT OF CARE TEST JEFFREY MERIDA Final Result [facility] [address] [phone] documented in this encounter Visit Diagnoses Not on filedocumented in this encounter
--- OUTSIDE RECORDS SUMMARY | 2024-02-15 23:03 | XMS_ITS | Encounter Summary ---
Author Organization [employer] Address [address] [place] [address] Care Team Providers Care Space And Missile Operations Name Role Phone Unavailable Primary Care Provider Unavailabl e Encounter Details Date Type Department Care Team (Late st Contact Info) Description 01/30/2021 Historic Encounter [address] [address] Fredrick Spivey Historical Social History [...] Name Priority Date/Time Associated Diagnosis Comments CULTURE, ACID FAST BACILLI(SENDOUT) Routine 01/30/2021 10:46 AM EST documented in this encounter Results * Culture, Acid Fast Bacilli(SENDOUT) (01/30/2021 10:46 AM EST) Final No Acid Fast Bacilli isolated at 6 weeks. at 6 Weeks Final Pre No Acid Fast Bacilli isolated at 5 weeks. Pre Pre No Acid Fast Bacilli isolated at 4 weeks. Pre Pre No Acid Fast Bacilli isolated at 3 weeks. Pre Pre No Acid Fast Bacilli isolated at 2 weeks. Pre Pre No Acid Fast Bacilli isolated at 1 week. Pre AFB Stain Concentrate No Acid Fast Bacilli seen BAL 01/30/2021 10:4 6 AM EST 01/30/2021 6:34 PM EST Comment:cloudy Narrative [facility] - 03/17/2021 9:01 PM EST [facility] Historical Provider MICROBIOLOGY - GENERAL ORDERABLES Final Result [facility] [address] [phone] documented in this encounter Visit Diagnoses Not on filedocumented in this encounter
--- OUTSIDE RECORDS SUMMARY | 2024-02-15 23:03 | XMS_ITS | Encounter Summary ---
Author Organization [employer] Address [address] [place] [address] Care Team Providers Care Chief Embalmer Name Role Phone Unavailable Primary Care Provider Unavailabl e Encounter Details Date Type Department Care Team (Late st Contact Info) Description 01/31/2021 Historic Encounter [facility] [address] [place] [address] Provider, [facility] Historical Social History Tobacco Use Types [...] Date/Time Associated Diagnosis Comments RBC MORPHOLOGY Routine 01/31/2021 3:19 AM EST documented in this encounter Results * (ABNORMAL) Smear morphology (01/31/2021 3:19 AM EST) RBC Morphology Abnormal 01/31/2021 3:[address] Estimate Adequate Adequate 01/31/2021 3:14 PM EST Anisocytosis 1+(A) 01/31/2021 3:14 PM EST Blood 01/31/2021 3:19 AM EST 01/31/2021 8:23 AM EST Narrative [facility] - 01/31/2021 3:14 PM EST Ordered By Discern Expert Rule [facility] Historical Provider LAB BLOOD ORDERABLES Fi nal Result [facility] [address] [place] [address] documented in this encounter Visit Diagnoses Not on filedocumented in this encounter
--- OUTSIDE RECORDS SUMMARY | 2024-02-15 23:03 | XMS_ITS | Encounter Summary ---
Author Organization [employer] Address [address] [place] [address] Care Team Providers Care Cotton Grower Name Role Phone Unavailable Primary Care Provider Unavailabl e Encounter Details Date Type Department Care Team (Late st Contact Info) Description 01/30/2021 Historic Encounter [facility] [address] [place] [address] Provider, [facility] [...] Procedure Name Priority Date/Time Associated Diagnosis Comments PATH REVIEW, FLUID Routine 01/30/2021 10 :46 AM EST documented in this encounter Results * Path review, fluid (01/30/2021 10:46 AM EST) Body Fluid Review for Pathologist NUMEROUS NEUTROPHILS. NO EVIDENCE OF MALIGNANCY. DR. JATIN CASTILLO 02/03/2021 4:13 PM EST 01/30/2021 10:4 6 AM EST 01/30/2021 7:15 PM EST Narrative [facility] - 02/03/2021 4:13 PM EST Order added by Discern Expert rule [facility] Historical Provider PATHOLOGY/CYTOLOGY ORDE MAGNOLIA Final Result [facility] [address] [place], [place] [address] [phone] documented in this encounter Visit Diagnoses Not on filedocumented in this encounter
--- OUTSIDE RECORDS SUMMARY | 2024-02-15 23:03 | XMS_ITS | Encounter Summary ---
Author Organization [employer] Address [address] [place] [address] Care Team Providers Care Co Op Name Role Phone Unavailable Primary Care Provider Unavailabl e Encounter Details Date Type Department Care Team (Late st Contact Info) Description 01/30/2021 Historic Encounter [address] [address] Provider, Jessee Jennings MD Social [...] Procedure Name Priority Date/Time Associated Diagnosis Comments [facility] BASIC METABOLIC PANEL ([facility] BK DATA CONV) Routine 01/30/2021 3:41 PM EST documented in this encounter Results * (ABNORMAL) [facility] BASIC METABOLIC PANEL ([facility] BK DATA CONV) (01/30/2021 3:41 PM EST) Glucose Level 208(H) 74 - 106 mg/dL 01/30/2021 9:07 PM EST Comment: [employer] has become aware of sulfasalazine and sulfapyridine [...] Nitrogen 29(H) 7 - 22 mg/dL 01/30/2021 9:07 PM EST Creatinine Level 2.50(H) 0.55 - 1.02 mg/dL 01/30/2021 9:07 PM EST Sodium Level 137 136 - 146 mmol/L 01/30/2021 9:07 PM EST Potassium Level 6.4(AA) 3.5 - 5.1 mmol/L 01/30/2021 9:07 PM EST Comment: CALLED TO:romario reyes DATE/TIME CALLED:01/30/2021 16:08:44 EST READ BACK AND VERIFIED:y CALLED BY: wes Chloride Level 109 102 - 112 mmol/L 01/30/2021 9:07 PM EST Carbon Dioxide Level 21 21 - 32 mmol/L 01/30/2021 9:07 PM EST Anion Gap 13 9 - 20 01/30/2021 9:07 PM EST Calcium Level 8.3(L) 8.4 - 10.1 mg/dL 01/30/2021 9:07 PM EST Bun/Creatinine 11.6 8.0 - 20.0 01/30/2021 9:07 PM EST eGFR NonAfrican 19(L) >=60 mL/min/1. 73m2 01/30/2021 9:09 PM EST Comment: GFR <60 suggests chronic kidney disease, if found over 3 month period. GFR <15 indicates renal failure. eGFR 23(L) >=60 mL/min/1. 73m2 01/30/2021 9:09 PM EST Comment: GFR <60 suggests chronic kidney disease, if found over 3 month period. GFR <15 indicates renal failure. Blood 01/30/2021 3:41 PM EST 01/30/2021 8:47 PM EST [facility] Historical Provider LAB BLOOD ORDERABLES Final Result [facility] [address] [place] [address], [facility] [phone] documented in this encounter Visit Diagnoses Not on filedocumented in this encounter
--- OUTSIDE RECORDS SUMMARY | 2024-02-15 23:03 | XMS_ITS | Encounter Summary ---
Author Organization [employer] Address [address] [place] [address] Care Team Providers Care Project Management Consultant Name Role Phone Unavailable Primary Care Provider Unavailabl e Encounter Details Date Type Department Care Team (Late st Contact Info) Description 02/01/2021 Historic Encounter [address] [address] ProviderFredrick Historical Social History [...] Associated Diagnosis Comments BLOOD GAS ARTERIAL (ABG) ([facility] DATA CONV) Routine 02/01/2021 6:31 AM EST documented in this encounter Results * (ABNORMAL) BLOOD GAS ARTERIAL (ABG) ([facility] DATA CONV) (02/01/2021 6:31 AM EST) $ABG Puncture No 02/01/2021 11:32 AM EST pH Art 7.41 7.35 - 7.45 02/01/2021 11:48 AM EST pCO2 Art 34.8(L) 35.0 - 45.0 mmHg 02/01/2021 11:48 AM EST pO2 Art 132.0(H) 80.0 - 100.0 mmHg 02/01/2021 11:48 AM EST HCO3 Art 22.1 20.0 - 26.0 mmol/L 02/01/2021 11:48 AM EST BE Art -2.2(L) -2.0 - 2.0 mmol/L 02/01/2021 11:48 AM EST sO2 Art >99.1 95.0 - 100.0 % 02/01/2021 11:48 AM EST tHb Art 8.9(L) 12.0 - 18.0 Gram/dL 02/01/2021 11:48 AM EST FH Hb <2.4 % 02/01/2021 11:48 AM EST Delivery Device Type Art Cannula 02/01/2021 11:32 AM EST Temperature,F Art 98.6 Deg F 02/01/2021 11:48 AM EST Art Blood Gas (ABG) Site Arterial Line 02/01/2021 11:32 AM EST Acceptable Davis's Test Art Not Applicable Acceptable 02/01/2021 11:32 AM EST Ventilator Mode Art N/A 02/01/2021 11:48 AM EST Oxygen Flow Rate Art 3.0 Liter 02/01/2021 11:32 AM EST ABG Num of Draw Attempts 1 02/01/2021 11:32 AM EST 02/01/2021 6:31 AM EST 02/01/2021 11:31 AM EST us Sle Historical Provider LAB BLOOD ORDERABLES Fi nal Result [facility] [address] [place], [place] [address] [phone] documented in this encounter Visit Diagnoses Not on filedocumented in this encounter
--- OUTSIDE RECORDS SUMMARY | 2024-02-15 23:03 | XMS_ITS | Encounter Summary ---
Author Organization [employer] Address [address] [place] [address] Care Team Providers Care Html Developer Name Role Phone Unavailable Primary Care Provider Unavailabl e Encounter Details Date Type Department Care Team (Late st Contact Info) Description 01/30/2021 Historic Encounter [facility] [address] [place] [address] Provider, [facility] Historical Social History Tobacco Use [...] Name Priority Date/Time Associated Diagnosis Comments CULTURE, BLOOD ([facility] DATA CONV) Routine 01/30/2021 12:12 AM EST documented in this encounter Results * CULTURE, BLOOD ([facility] DATA CONV) (01/30/2021 12:12 AM EST) Final No growth at 5 days. Final Pre No growth at 4 days. Pre Pre No growth at 3 days. Pre Pre No growth at 2 days. Pre Pre No growth at 1 day. Pre Pre Culture less than 24 Hrs old Pre Blood 01/30/2021 12:1 2 AM EST 01/30/2021 5:30 AM EST [facility] Historical Provider LAB BLOOD ORDERABLES Fi nal Result [facility] 1 [place] [address], [facility] [phone] documented in this encounter Visit Diagnoses Not on filedocumented in this encounter
--- OUTSIDE RECORDS SUMMARY | 2024-02-15 23:03 | XMS_ITS | Encounter Summary ---
Author Organization [employer] Address [address] [place] [address] Care Team Providers Care Rock Duster Name Role Phone Unavailable Primary Care Provider Unavailabl e Encounter Details Date Type Department Care Team (Late st Contact Info) Description 02/01/2021 Historic Encounter [facility] [address] [place] [address] Provider, [facility] [...] Procedure Name Priority Date/Time Associated Diagnosis Comments MRSA SCREEN Routine 02/01/2021 9:49 AM EST documented in this encounter Results * MRSA Screen (02/01/2021 9:49 AM EST) Final No MRSA isolated For Infection Control surveillance only. Final Nasal 02/01/2021 9:49 AM EST 02/01/2021 2:58 PM EST [facility] Historical Provider MICROBIOLOGY - GENERAL ORDERABLES Final Result [facility] [address] [place] [id number] [phone] documented in this encounter Visit Diagnoses Not on filedocumented in this encounter
--- OUTSIDE RECORDS SUMMARY | 2024-02-15 23:03 | XMS_ITS | Encounter Summary ---
Author Organization [employer] Address [address] [place] [address] Care Team Providers Care Crane Hooker Name Role Phone Unavailable Primary Care Provider Unavailabl e Encounter Details Date Type Department Care Team (Late st Contact Info) Description 01/31/2021 Historic Encounter [address] [address] ProviderFredrick Historical Social History [...] Priority Date/Time Associated Diagnosis Comments [facility]ATED DIFFERENTIAL [facility] Routine 01/31/2021 3:19 AM EST documented in this encounter Results * (ABNORMAL) AUTOMATED DIFFERENTIAL ([facility] DATA CONV) (01/31/2021 3:19 AM EST) Neut% 84.3(H) 34.0 - 71.0 % 01/31/2021 8:25 AM EST Lymph% 3.8(L) 19.3 - 53.1 % 01/31/2021 8:25 AM EST Faulkner% 10.1(H) 3.0 - 9.0 % 01/31/2021 8:25 AM EST Eos% 0.0 0.0 - 7.0 % 01/31/2021 8:25 AM EST Baso% 0.2 0.0 - 1.5 % 01/31/2021 8:25 AM EST IG% 1.60(H) 0.00 - 0.60 % 01/31/2021 8:25 AM EST Neut# 17.49(H) 1.56 - 6.13 K/uL 01/31/2021 8:25 AM EST Lymph# 0.80(L) 1.00 - 3.90 x10(3)/uL 01/31/2021 8:25 AM EST Faulkner# 2.10(H) 0.16 - 1.00 K/uL 01/31/2021 8:25 AM EST Eos# 0.00 0.00 - 0.80 x10(3)/uL 01/31/2021 8:25 AM EST Baso# 0.05 0.00 - 0.20 x10(3)/uL 01/31/2021 8:25 AM EST IG# 0.34(H) 0.00 - 0.05 x10(3)/uL 01/31/2021 8:25 AM EST Blood 01/31/2021 3:19 AM EST 01/31/2021 8:23 AM EST Narrative [facility] - 01/31/2021 3:13 PM EST Added by Discern Expert us Sle Historical Provider LAB BLOOD ORDERABLES Fi nal Result [facility] 1 [place] [address], [facility] [phone] documented in this encounter Visit Diagnoses Not on filedocumented in this encounter
--- OUTSIDE RECORDS SUMMARY | 2024-02-15 23:03 | XMS_ITS | Encounter Summary ---
Author Organization [employer] Address [address] [place] [address] Care Team Providers Care Sales And Production Manager Name Role Phone Unavailable Primary Care Provider Unavailabl e Encounter Details Date Type Department Care Team (Late st Contact Info) Description 01/30/2021 Historic Encounter [address] [address] Provider, Jessee Jennings MD Social [...] Procedure Name Priority Date/Time Associated Diagnosis Comments [facility] BASIC METABOLIC PANEL ([facility] DATA CONV) Routine 01/30/2021 2:07 PM EST documented in this encounter Results * (ABNORMAL) [facility] BASIC METABOLIC PANEL ([facility] BK DATA CONV) (01/30/2021 2:07 PM EST) Glucose Level 218(H) 74 - 106 mg/dL 01/30/2021 8:26 PM EST Comment: ulike has become aware of sulfasalazine and sulfapyridine [...] Nitrogen 29(H) 7 - 22 mg/dL 01/30/2021 8:26 PM EST Creatinine Level 2.40(H) 0.55 - 1.02 mg/dL 01/30/2021 8:26 PM EST Sodium Level 137 136 - 146 mmol/L 01/30/2021 8:26 PM EST Potassium Level 6.4(AA) 3.5 - 5.1 mmol/L 01/30/2021 8:26 PM EST Comment: CALLED TO:romario reyes DATE/TIME CALLED:01/30/2021 15:30:28 EST READ BACK AND VERIFIED:y CALLED BY: wes Chloride Level 108 102 - 112 mmol/L 01/30/2021 8:26 PM EST Carbon Dioxide Level 21 21 - 32 mmol/L 01/30/2021 8:26 PM EST Anion Gap 14 9 - 20 01/30/2021 8:26 PM EST Calcium Level 8.5 8.4 - 10.1 mg/dL 01/30/2021 8:26 PM EST Bun/Creatinine 12.1 8.0 - 20.0 01/30/2021 8:26 PM EST eGFR NonAfrican 20(L) >=60 mL/min/1. 73m2 01/30/2021 8:30 PM EST Comment: GFR <60 suggests chronic kidney disease, if found over 3 month period. GFR <15 indicates renal failure. eGFR 24(L) >=60 mL/min/1. 73m2 01/30/2021 8:30 PM EST Comment: GFR <60 suggests chronic kidney disease, if found over 3 month period. GFR <15 indicates renal failure. Blood 01/30/2021 2:07 PM EST 01/30/2021 7:12 PM EST [facility] Historical Provider LAB BLOOD ORDERABLES Final Result [facility] [address] [place] [address], [facility] [phone] documented in this encounter Visit Diagnoses Not on filedocumented in this encounter
--- OUTSIDE RECORDS SUMMARY | 2024-02-15 23:03 | XMS_ITS | Encounter Summary ---
Author Organization [employer] Address [address] [place] [address] Care Team Providers Care Do All Operator Name Role Phone Unavailable Primary Care Provider Unavailabl e Encounter Details Date Type Department Care Team (Late st Contact Info) Description 02/01/2021 Historic Encounter [address] [address] ProviderBronwyn Historical Social History Tobacco [...] Date/Time Associated Diagnosis Comments GLUCOSE-POC Routine 02/01/2021 5:18 AM EST documented in this encounter Results * (ABNORMAL) Glucose, Point of Care (02/01/2021 5:18 AM EST) Glucose POC2 166(H) 70 - 110 mg/dL 02/01/2021 10:18 AM EST [facility] Punch Hand [id number] 02/01/2021 10:18 AM EST [facility] Device SN [id number] 02/01/2021 10:18 AM EST [facility] Device Comment1 Notified Nurse RBV 02/01/2021 10:18 AM EST [facility] Blood 02/01/2021 5:18 AM EST 02/01/2021 10:18 AM EST [facility] Historical Provider POINT OF CARE TEST JEFFREY MERIDA Final Result [facility] [address] [phone] documented in this encounter Visit Diagnoses Not on filedocumented in this encounter
--- OUTSIDE RECORDS SUMMARY | 2024-02-15 23:03 | XMS_ITS | Encounter Summary ---
Author Organization [employer] Address [address] [place] [address] Care Team Providers Care Sharemilker Name Role Phone Unavailable Primary Care Provider Unavailabl e Encounter Details Date Type Department Care Team (Late st Contact Info) Description 02/01/2021 Historic Encounter [facility] [address] [place] [address] Provider, [facility] Historical Social History Tobacco Use [...] Procedure Name Priority Date/Time Associated Diagnosis Comments STREP PNEUMONIAE URINE ANTIGEN Routine 02/01/2021 9:49 AM EST documented in this encounter Results * Strep pneumoniae urine antigen (02/01/2021 9:49 AM EST) Strep pneumoniae Direct Antigen Negative Negative 02/02/2021 8:41 PM EST Internal QC Lot No. [id number] 02/02/2021 8:41 PM EST Internal QC Result PASS 02/02/2021 8:41 PM EST Expiration Date. 2022040402/02/2021 8:41 PM EST Urine 02/01/2021 9:49 AM EST 02/02/2021 6:43 PM EST [facility] Historical Provider MICROBIOLOGY - GENERAL ORDERABLES Final Result [facility] [address] [place] [address] documented in this encounter Visit Diagnoses Not on filedocumented in this encounter
--- OUTSIDE RECORDS SUMMARY | 2024-02-15 23:03 | XMS_ITS | Encounter Summary ---
Author Organization [employer] Address [address] [place] [address] Care Team Providers Care Cylinder Block Mechanic Name Role Phone Unavailable Primary Care Provider Unavailabl e Encounter Details Date Type Department Care Team (Late st Contact Info) Description 02/01/2021 Historic Encounter [facility] [address] [place] [address] Provider, [facility] Historical Social History Tobacco Use [...] Associated Diagnosis Comments LEGIONELLA ANTIGEN, URINE Routine 02/01/2021 9:49 AM EST documented in this encounter Results * Legionella antigen, urine (02/01/2021 9:49 AM EST) Legionella Urine Ag Negative Negative 02/02/2021 8:41 PM EST Internal QC Lot No. [id number]/0402/02/2021 8:41 PM EST Internal QC Result PASS 02/02/2021 8:41 PM EST Urine 02/01/2021 9:49 AM EST 02/02/2021 6:43 PM EST [facility] Historical Provider URINE ORDERABLES Final Result [facility] [address] [place], [place] [address] [place] [address] documented in this encounter Visit Diagnoses Not on filedocumented in this encounter
--- OUTSIDE RECORDS SUMMARY | 2024-02-15 23:03 | XMS_ITS | Encounter Summary ---
Author Organization [employer] Address [address] [place] [address] Care Team Providers Care Receiving Team Member Name Role Phone Unavailable Primary Care Provider Unavailabl e Encounter Details Date Type Department Care Team (Late st Contact Info) Description 01/31/2021 Transcribed Document [facility] Cardiology [address] [place] [address] Josue Fischer MD [address] [place] [id number] Social History Tobacco Use Types Packs/Day Years Used Date Smoking Tobacco: Never Assessed Comments Unknown Sex and Gender Information Value Date Recorded Sex Assigned at Female 09/02/2021 8:59 PM CDT Legal Sex Female 8:59 PM CDT Gender Identity Female 09/02/2021 8:59 PM CDT Sexual Orientation Not on file documented as of this encounter Miscellaneous Notes * Cerner Conversion Note - Josue Fischer MD - 01/31/2021 9:11 AM EST Patient: CISCO CAZARES Age: 75 years Sex: Female : 1945 Associated Diagnoses: None Author: JOSUE FISCHER MD-CAR BASIC PCP: Primary Slubber Machine Operator: None Subjective NAD Health Status Allergies: Allergic Reactions (Selected) No [...] Push, Q15Min, PRN: Other (See Comment) Lipitor: 10 mg, Oral, At Bedtime Lovenox: 30 mg, SubCutaneous, [id number] MiraLax: 17 Gram, Oral, Daily, PRN: Constipation [...] mg, 300 mL, 300 mL/Hr, IV Piggyback, [id number] dexmedeTOMIDine injection 400 mcg + NaCl 0.9% for drip 100 mL: TITRATE, IntraVENous docusate sodium: 100 mg, Oral, BID doxycycline + Sodium Chloride 0.9% intravenous solution 100 mL: 100 mg, 50 mL/Hr, IV Piggyback, S40PAly fentaNYL injection 2,000 mcg + Dextrose 5% [...] mL 10 mL, IV Push, Q12H atorvastatin 10 mg tab 10 mg 1 Tab, Oral, At Bedtime docusate sod 100 mg/10 mL liq 100 mg 10 mL, Oral, BID doxycycline hyclate + NaCl 0.9% 100 mL 100 mg, IV Piggyback, [id number] enoxaparin 30 mg/0.3 ml inj 30 mg 0.3 mL, SubCutaneous, T80FTws famotidine 20 mg/2 mL inj 20 mg 2 mL, IV Push, Q12H insulin regular 1 unit/0.01 mL inj 3mL Scale B, SubCutaneous, Q6H lactobacillus acidophilus cap 1 Cap, Oral, BID levothyroxine 100 mcg tab 100 mcg 1 Tab, Oral, Daily linezolid *PREMIX* 600 mg 300 mL, IV Piggyback, V74FDmr methylPREDNISolone SUCCinate 40 mg inj 40 mg, [...] list: All Problems Hypertension / SNOMED CT 48037098 / Confirmed, Active Problems (1) Hypertension Objective Intake and Output 24 hour intake, 24 hour output VS/Measurements Vitals Signs (last 24 hrs) Last Charted Minimum Maximum Temp 98.3 (JAN 31 04:00) 98 (JAN 31 00:00) H 99.9 (JAN 30 12:00) Mon HR 91 (JAN 31 06:30) 56 (JAN 31 00:30) 96 (JAN 31 03:15) Resp Rate H 28 (JAN 30 23:40) H 28 (JAN 30 23:40) H 28 (JAN 30 23:40) SBP H 173 (JAN 31 06:30) 113 (JAN 30 14:00) H 173 (JAN 31 06:00) DBP 75 (JAN 31 06:30) L 57 (JAN 30 08:45) 75 (JAN 31 06:00) MAP 108 (JAN 31 06:30) 60 (JAN 30 08:15) 114 (JAN 31 06:30) SpO2 100 (JAN 31 06:30) 100 (JAN 30 08:15) 100 (JAN 30 08:15) General: Intubated and sedated. Eye: Pupils are equal, round and reactive to light. HENT: Normocephalic. Neck: Supple, No carotid bruit. Respiratory: Breath sounds are equal, Symmetrical chest wall expansion. Support: Ventilator. Cardiovascular: Normal rate, Regular rhythm. Gastrointestinal: Soft, Non-distended. Musculoskeletal: No deformity. Integumentary: Warm, Dry. Neurologic: Intubated and sedated. Psychiatric: Intubated and sedated. Results Review JAN 31 03:19 140 110 H 32 / H 182 4.4 22 H 2.60 \ JAN 31 03:19 \ L 10.6 / H 20.8 272 / L 30.9 \ Cardiac Markers (Current Encounter/Past 24 Hours) ProBNP 2987 pg/mL [place] 01/30/2021 07:24 Radiology Results (Last 48 hours) [id number] -- 01/29/2021 22:07 CR Chest 1 Vw [...] caliber andcourse.Basilar predominant extensive bilateral consolidative airspaceopacities. Hizje-lf-fxuyqagh bilateral pleural effusions. Nopneumothorax.No mediastinal or axillary lymphadenopathy.No acuteAbdomen findings. Colonic diverticulosis without evidence ofdiverticulitis.IMPRESSION:1. Extensive diffuse bilateral consolidative opacities is consistentmultifocal pneumonia.2. Sldiz-tk-hrjtuwyd bilateral pleural effusions. CR Chest 1 Vw [...] PEA cardiopulmonary arrest during stress test at [facility]. ROSC unknown (brief per report) Pressor support Initial rhythm atrial fibrillation post cardiopulmonary arrest, now SR. Amio drip Acute hypoxic respiratory failure Ventilation support Bilateral infiltrates TAYLOR PLAN; 01/31/2021 Continue critical care support. Wean Levophed. Will consider Ischemic evaluation pending clinical improvement. 01/30/2021 Continue supportive care. Restart/modify home meds when appropriate. Consider coronary assessment when more stable. documented in this encounter Plan of Treatment Not on file documented as of this encounter Visit Diagnoses Not on filedocumented in this encounter
--- OUTSIDE RECORDS SUMMARY | 2024-02-15 23:03 | XMS_ITS | Encounter Summary ---
Author Organization [employer] Address [address] [place] [address] Care Team Providers Care Internal Corrosion Specialist Name Role Phone Unavailable Primary Care Provider Unavailabl e Encounter Details Date Type Department Care Team (Late st Contact Info) Description 02/01/2021 Historic Encounter [facility] [address] [place] [address] Provider, [facility] Historical Social [...] Priority Date/Time Associated Diagnosis Comments MAGNESIUM LEVEL ([facility] DATA CONV) Routine 02/01/2021 2:40 AM EST documented in this encounter Results * MAGNESIUM LEVEL ([facility] DATA CONV) (02/01/2021 2:40 AM EST) Magnesium Level 2.0 1.5 - 2.4 mg/dL 02/01/2021 8:26 AM EST Blood 02/01/2021 2:40 AM EST 02/01/2021 8:00 AM EST [facility] Historical Provider LAB BLOOD ORDERABLES Fi nal Result [facility] 1 [place], [place] [address] [phone] documented in this encounter Visit Diagnoses Not on filedocumented in this encounter
--- OUTSIDE RECORDS SUMMARY | 2024-02-15 23:03 | XMS_ITS | Encounter Summary ---
Author Organization [employer] Address [address] [place] [address] Care Team Providers Care Information Assurance Officer Name Role Phone Unavailable Primary Care Provider Unavailabl e Encounter Details Date Type Department Care Team (Late st Contact Info) Description 02/01/2021 Transcribed Document [facility] [place] [address] ProviderDick MD [facility] [place] [address] Social History Tobacco Use Types [...] Conversion Note - Historical ProviderMD - 02/01/2021 4:48 PM POLICY INTERN Patient: CISCO CAZARES Age: 75 Years Sex: Female : 1945 Subjective At the time of nephrology rounds, she has been extubated. She continues to complain about purulent sputum production and some shortness of breath. She is breathing comfortably otherwise with nasal cannula. She denies fever sweats. She denies chest pain, palpitations or lightheadedness. She is tolerating oral nutrition. Review of her laboratory data shows that her serum creatinine has improved slightly. She is unaware of her baseline kidney function. Her potassium is stable. In general she is feeling better. Vital Signs T: 37.1 ??C TMIN: 36.7 ??C TMAX: 37.1 ??C HR: 97 RR: 20 BP: 126/75 BP: 142/59(Line) SpO2: 95% Oxygen Settings (Last) Oxygen Therapy Mode: Nasal cannula (02/01/21 14:17:00) Oxygen Flow Rate: 3 Liter/Min (02/01/21 14:17:00) Intake & Output Totals Last 24 Hours (7a-7a) Input Total: 2105.06 mL Output Total: 1500 mL Balance: 605.06 mL Physical Exam Gen.: Alert, no acute distress, chronically ill-appearing, conversant, cooperative Cardiovascular: Normal S1-S2, regular rhythm, normal rate no rub no gallop Pulmonary: Clear to auscultation bilaterally no wheezes or rhonchi, fair air movement Gastrointestinal: Abdomen is soft, nontender, nondistended, no [...] Hyperkalemia, resolved Respiratory failure, improving Acute kidney injury, nonoliguric: Her clearance continues to improve. I suspect she probably has some pre-existing chronic kidney disease in the setting of her diabetes and hypertension. I am reassured that she has good urine output, improved blood pressure and her pulmonary status is stabilizing. She has mild anemia. As she recovers from her critical illness, we can evaluate for manifestations of chronic kidney disease. We will check a renal ultrasound on Wednesday and we can screen for the metabolic sequelae of reduced kidney function such as secondary hyperparathyroidism, hyperphosphatemia, renal anemia/iron deficiency anemia. Franck Huang M.D. Nephrology Partner with , Dr. Rodriguez and Dr. Malin Note dictated with [employer] recognition system Medications amLODIPine, 2.5 mg= 1 Tab, Oral, Daily cloNIDine, 0.1 mg= 1 Tab, Oral, TID Dextrose 50% injection, 25 Gram= 50 mL, [...] mg= 1 Tab, Oral, Q6H, PRN insulin regular sliding scale, Scale B, SubCutaneous, Q6H isosorbide mononitrate, 90 mg= 3 Tab, Oral, Daily labetalol, 10 mg= 2 mL, IV Push, Q1H, PRN lactobacillus acidophilus, 1 Cap, Oral, BID levothyroxine, 100 mcg= 1 Tab, Oral, Daily Lipitor, 40 mg= 1 Tab, Oral, At Bedtime Lovenox, 30 mg= 0.3 mL, SubCutaneous, [id number] MiraLax, 17 Gram= 1 Packet, Oral, Daily, [...] 650 mg= 2 Tab, Oral, Q4H, PRN Zosyn + Sodium Chloride 0.9% intravenous solution 50 mL Zyvox, 600 mg= 300 mL, IV Piggyback, [id number] Lab Results Test Name Test Result Date/Time pH Art 7.41 02/01/2021 06:31 EST pCO2 Art 34.8 mmHg (Low) 02/01/2021 06:31 EST pO2 Art 132.0 mmHg (High) 02/01/2021 06:31 EST HCO3 Art 22.1 mmol/L 02/01/2021 06:31 EST BE Art -2.2 mmol/L (Low) 02/01/2021 06:31 EST sO2 Art >99.1 % 02/01/2021 06:31 EST tHb Art 8.9 Gram/dL (Low) 02/01/2021 06:31 EST FHHb <2.4 % 02/01/2021 06:31 EST Delivery Device Type Art Cannula 02/01/2021 06:31 EST Temperature, F Art 98.6 Deg F 02/01/2021 06:31 EST Art Blood Gas (ABG) Site Arterial Line 02/01/2021 06:31 EST Acceptable Davis's Test Art NA 02/01/2021 06:31 EST Ventilator Mode Art N/A 02/01/2021 06:31 EST Oxygen Flow Rate Art 3.0 Liter 02/01/2021 06:31 EST ABG Num of Draw Attempts 1 02/01/2021 06:31 EST Sodium Level 141 mmol/L 02/01/2021 02:40 [...] Device Comment 1 Notified Nurse RBV 02/01/2021 05:18 EST Device Comment 1 Notified Nurse RBV 01/31/2021 23:32 EST Device Comment 1 Notified Nurse RBV 01/31/2021 17:57 EST Glucose POC2 202 mg/dL (High) 02/01/2021 13:01 EST Glucose POC2 166 mg/dL (High) 02/01/2021 05:18 EST Glucose POC2 170 mg/dL (High) 01/31/2021 23:32 EST Glucose POC2 132 mg/dL (High) 01/31/2021 17:57 EST Calcium Ionized 1.14 mmol/L 02/01/2021 02:40 [...] # 0.60 x10(3)/uL (Low) 02/01/2021 02:40 EST Warren % 4.1 % 02/01/2021 02:40 EST Warren # 0.62 K/uL 02/01/2021 02:40 EST Eos [...] 02/01/2021 02:40 EST Electronically signed by Parviz, [facility] Conversion Casing Runner Cerner at 06/22/2022 7:37 PM CDT documented in this encounter Plan of Treatment Not on file documented as of this encounter Visit Diagnoses Not on filedocumented in this encounter
--- OUTSIDE RECORDS SUMMARY | 2024-02-15 23:03 | XMS_ITS | Encounter Summary ---
Author Organization [employer] Address [address] [place] [address] Care Team Providers Care Wire Steward Name Role Phone Unavailable Primary Care Provider Unavailabl e Encounter Details Date Type Department Care Team (Late st Contact Info) Description 02/01/2021 Transcribed Document [facility] [facility] [place] [address] ProviderDick MD [facility] [place] [address] Social History Tobacco Use Types [...] Conversion Note - Historical ProviderMD - 02/01/2021 8:00 AM BOOKKEEPING TEACHER Swallow Evaluation Entered On: 02/01/2021 8:42 EST Performed On: 02/01/2021 8:15 EST by MADELYN COLORADO, PULPWOOD BUYER General Information Visit Type, PULPWOOD BUYER : Initial evaluation Patient Orders : Speech Language Pathology Additional Tx -111 Start: 02/01/21 8:34:00 EST, For Dysphagia, Continuous Order - Speech Language Pathology Swallow Evaluation and Treatment - Start: 02/01/21 8:00:00 EST, Routine, For Swallow Eval and Treat -111 CRISTINE RAMEY APRN Admission Date : Admission Date/Time: 01/29/21 22:07:00 Medical Chart Reviewed, PULPWOOD BUYER : Yes Personal Devices : Personal Devices No Devices Recorded Assistive Devices : Assistive Devices No Devices Recorded Active Diagnoses : No Qualifying Diagnoses Therapy Diagnosis, PULPWOOD BUYER : Overt patterns of pharyngeal dysphagia with both thin liquids and pudding. Not yet ready for PO. Suspect quick recovery. Recs: 1. Continue NPO with ice ok after oral care 2. Non-oral meds 3. ST to reeval tomorrow a.m. Previous Swallow Precautions : None in EMR Diet/Intake Prior to Current Admission : regular Diet/Intake During Current Admission : NPO Intubation Comment, PULPWOOD BUYER : 01/29-01/31 less than 48 hours Vital Signs RTF : Vitals Temp BP Pulse RR SpO2 FIO2 Date Wt(kg) Wt(lb) 02/01 08:16 ---- ----- --- 20 100 --- 01/29 78.2 172 02/01 06:00 ---- ----- --- -- 100 --- 02/01 05:00 ---- ----- --- -- 100 --- 02/01 04:00 ---- ----- --- -- 100 --- 02/01 03:00 ---- 126/75 --- -- 100 --- 24 Hr Tmax: No Data Available 36 Hr Tmax: No Data Available Vital Signs are the last 5 in the past 48 hours. Weights display the last 5 within 7 days. Initial Wt: 01/29 78.2 kg 172 lb Respiratory Assessment Comment : nasal 02 MADELYN COLORADO SLP - 02/01/2021 8:34 EST General Status Patient Received Status, PULPWOOD BUYER : Long sitting in bed Patient Left Status, PULPWOOD BUYER : Long sitting in bed MADELYN COLORADO SLP - 02/01/2021 8:34 EST Pain Assessment Pain Scaled Used : 0-10 Pain scale Pain Score Pre-Intervention : 0 MADELYN COLORADO SLP - 02/01/2021 8:34 EST Image 1 - Images currently included in the form version of this document have not been included in the text rendition version of the form. Oral Mechanism Dysarthria : No Resonance Types : Appropriate Oral Mechanism for Daily Living : Intact PULPWOOD BUYER Cough : Strong Facial Appearance: : Symmetrical Labial Appearance : Symmetrical Labial Function : All function intact Dental/Orthodontia : Dentures (unavailable), Edentulous Lingual Appearance : Deviated, left (Comment: slight [MADELYN COLORADO SLP - 02/01/2021 8:34 EST] ) Lingual Function : All function intact Hard Palate Appearance/ Structure : Structure intact Mandible Appearance/Structure : Intact Mandibular Function : All function intact MADELYN COLORADO SLP - 02/01/2021 8:34 EST Bedside Swallow Swallow Outcome BS Swallow : Impaired Head Control BS Swallow : Neutral head position Presentation Style BS Swallow : Clinician Swallow Position BS Swallow : Upright 90 degrees Trunk Control BS Swallow : Upright centered position Consistencies Trialed BS Swallow : Ice chips, Thin by straw, Pudding MADELYN COLORADO, PULPWOOD BUYER - 02/01/2021 8:34 EST Swallow Impressions Impressions, BS Swallow : Signs/Symptoms of pharyngeal dysphagia Swallowing Outcome Measures : Functional Oral Intake Scale (FOIS) Functional Oral Intake Scale (FOIS) : Level I Bedside Swallow Overall Impressions : Patient was transferred to [facility] after PEA cardiac arrest during a stress test. She was intubated upon arrival. She is being treated for acute hypoxic respiratory failure, TAYLOR, HTN emergency, and ? aspiration PNA. Her PMH is significant for: HTN, HLD, hypothyroid, and DM. Patient was sleeping upon my arrival though roused easily. She alert and oriented to person, place and time. Her voice and volitional cough are both strong. She has overt patterns of pharyngeal dysphagia including multiple swallows with both thin and pudding (7+ rapid), as well as cough with water. She does not yet appear ready for PO, though do suspect quick recovery. Recommend ongoing NPO with ice ok after oral care, non-oral meds, and ST to reeval first thing Wednesday. D/w patient, RN, and pulmonary. MADELYN COLORADO SLP - 02/01/2021 8:34 EST Swallow Recommendations Recommended Diet Type, SwRec : NPO, OK for ice (Comment: after oral care [MADELYN COLORADO SLP - 02/01/2021 8:34 EST] ) Recommended Med Present, SwRec : Non-oral Recommended Exam, Sw Rec : Repeat Bedside Swallow Repeat Swallow Exam Timeframe : 1-3 days MADELYN COLORADO SLP - 02/01/2021 8:34 EST Therapy Indication Assessment PULPWOOD BUYER Indicated : Yes PULPWOOD BUYER Problem List : Impaired, Swallowing Potential Barriers to PULPWOOD BUYER : None evident PULPWOOD BUYER Rehabilitation Potential : Good MADELYN COLORADO SLP - 02/01/2021 8:34 EST Swallow Plan/Goals Treatment Frequency, PULPWOOD BUYER : 1 time per wk Treatment Plan Est w/Pt/Caregvr, Swallow : Yes Treatment Duration, PULPWOOD BUYER : One day Therapy at Next Level of Care, PULPWOOD BUYER : None anticipated MADELYN COLORADO SLP - 02/01/2021 8:34 EST Swallow LTG Grid PULPWOOD BUYER Usp Goal #1 PULPWOOD BUYER Usp Goal #2 Swallow LTG : Establish safe oral diet without aspiration Other: Pt goal: home Status : Initial MADELYN COLORADO SLP - 02/01/2021 8:34 EST MADELYN COLORADO SLP - 02/01/2021 8:34 EST Swallow Goals Grid Goal #1 Swallow STG : Other: Reeval Related To : Aspiration prevention, Return to oral intake Date to Meet : 02/02/2021 EST Status : Initial goal MADELYN COLORADO SLP - 02/01/2021 8:34 EST Education Barriers To Learning : None evident Individuals Taught : Patient Readiness to Learn : Cooperative Readiness to Learn : Explanation MADELYN COLORADO SLP - 02/01/2021 8:34 EST PULPWOOD BUYER Education Assessment Grid 1 Aspiration : Verbalizes understanding Dysphagia : Verbalizes understanding Dysphagia, Effects of Impairment : Verbalizes understanding Evaluation Results : Verbalizes understanding Ice Chips : Verbalizes understanding NPO : Verbalizes understanding Oral Care : Verbalizes understanding MADELYN COLORADO SLP - 02/01/2021 8:34 EST PULPWOOD BUYER Education Assessment Grid 2 Treatment Plan : Verbalizes understanding MADELYN COLORADO SLP - 02/01/2021 8:[address] [facility] PULPWOOD BUYER Charges Evaluation Swallowing Function : 1 MADELYN COLORADO SLP - 02/01/2021 8:34 EST Anticipated Discharge Needs, PULPWOOD BUYER Anticipated Discharge to : Home, with home health Recommend Continued Therapy at Discharge : No MADELYN COLORADO SLP - 02/01/2021 8:34 EST Electronically signed by [facility], [facility] Conversion Case Monitor Cerner at 06/22/2022 7:35 PM CDT documented in this encounter Plan of Treatment Not on file documented as of this encounter Visit Diagnoses Not on filedocumented in this encounter
--- OUTSIDE RECORDS SUMMARY | 2024-02-15 23:03 | XMS_ITS | Encounter Summary ---
Author Organization [employer] Address [address] [place] [address] Care Team Providers Care Format Proofreader Name Role Phone Unavailable Primary Care Provider Unavailabl e Encounter Details Date Type Department Care Team (Late st Contact Info) Description 01/30/2021 Historic Encounter [address] [address] Provider, genaro Jennings MD Social History Tobacco Use Types [...] Comments LACTIC ACID LEVEL ([facility] DATA CONV) Routine 01/30/2021 3:30 AM EST documented in this encounter Results * (ABNORMAL) LACTIC ACID LEVEL ([facility] BK DATA CONV) (01/30/2021 3:30 AM EST) Lactic Acid Level 3.3(AA) 0.4 - 2.0 mmol/L 01/30/2021 9:20 AM EST Comment: CALLED TO:ALEXANDR RIOS DATE/TIME CALLED:01/30/2021 04:25:00 EST READ BACK AND VERIFIED:JUAN CALLED BY: Blood 01/30/2021 3:30 AM EST 01/30/2021 8:52 AM EST [facility] Historical Provider LAB BLOOD ORDERABLES Final Result [facility] [address] [phone] documented in this encounter Visit Diagnoses Not on filedocumented in this encounter
--- OUTSIDE RECORDS SUMMARY | 2024-02-15 23:03 | XMS_ITS | Encounter Summary ---
Author Organization [employer] Address [address] [place] [address] Care Team Providers Care Router Operator Name Role Phone Unavailable Primary Care Provider Unavailabl e Encounter Details Date Type Department Care Team (Late st Contact Info) Description 01/31/2021 Historic Encounter [address] [address] Fredrick Spivey Historical Social History [...] Procedure Name Priority Date/Time Associated Diagnosis Comments [facility] BASIC METABOLIC PANEL ([facility]KR DATA CONV) Routine 01/31/2021 3:19 AM EST documented in this encounter Results * (ABNORMAL) [facility] BASIC METABOLIC PANEL ([facility]KR DATA CONV) (01/31/2021 3:19 AM EST) Glucose Level 182(H) 74 - 106 mg/dL 01/31/2021 8:53 AM EST Comment: [email or web address] has become aware of sulfasalazine and sulfapyridine [...] Urea Nitrogen 32(H) 7 - 22 mg/dL 01/31/2021 8:53 AM EST Creatinine Level 2.60(H) 0.55 - 1.02 mg/dL 01/31/2021 8:53 AM EST Sodium Level 140 136 - 146 mmol/L 01/31/2021 8:53 AM EST Potassium Level 4.4 3.5 - 5.1 mmol/L 01/31/2021 8:53 AM EST Chloride Level 110 102 - 112 mmol/L 01/31/2021 8:53 AM EST Carbon Dioxide Level 22 21 - 32 mmol/L 01/31/2021 8:53 AM EST Anion Gap 12 9 - 20 01/31/2021 8:53 AM EST Calcium Level 9.0 8.4 - 10.1 mg/dL 01/31/2021 8:53 AM EST Bun/Creatinine 12.3 8.0 - 20.0 01/31/2021 8:53 AM EST eGFR NonAfrican 18(L) >=60 mL/min/1. 73m2 01/31/2021 8:54 AM EST Comment: GFR <60 suggests chronic kidney disease, if found over 3 month period. GFR <15 indicates renal failure. eGFR 22(L) >=60 mL/min/1. 73m2 01/31/2021 8:54 AM EST Comment: GFR <60 suggests chronic kidney disease, if found over 3 month period. GFR <15 indicates renal failure. Blood 01/31/2021 3:19 AM EST 01/31/2021 8:41 AM EST [facility] Historical Provider LAB BLOOD ORDERABLES Fi nal Result [facility] [address] [phone] documented in this encounter Visit Diagnoses Not on filedocumented in this encounter
--- OUTSIDE RECORDS SUMMARY | 2024-02-15 23:03 | XMS_ITS | Encounter Summary ---
Author Organization [employer] Address [address] [place] [address] Care Team Providers Care Health Care Recruiter Name Role Phone Unavailable Primary Care Provider Unavailabl e Encounter Details Date Type Department Care Team (Late st Contact Info) Description 02/01/2021 Historic Encounter [address] [address] ProviderBronwyn Historical Social History Tobacco [...] Date/Time Associated Diagnosis Comments GLUCOSE-POC Routine 02/01/2021 11:21 PM EST documented in this encounter Results * (ABNORMAL) Glucose, Point of Care (02/01/2021 11:21 PM EST) Glucose POC2 217(H) 70 - 110 mg/dL 02/02/2021 4:21 AM EST [facility] Charge Aide [id number] 02/02/2021 4:21 AM EST [facility] Device SN [id number] 02/02/2021 4:21 AM EST [facility] Device Comment1 Notified Nurse RBV 02/02/2021 4:21 AM EST [facility] Blood 02/01/2021 11:2 1 PM EST 02/02/2021 4:26 AM EST [facility] Historical Provider POINT OF CARE TEST JEFFREY MERIDA Final Result [facility] [address] [phone] documented in this encounter Visit Diagnoses Not on filedocumented in this encounter
--- OUTSIDE RECORDS SUMMARY | 2024-02-15 23:04 | XMS_ITS | Encounter Summary ---
Author Organization [employer] Address [address] [place] [address] Care Team Providers Care Oxygen Therapist Name Role Phone Unavailable Primary Care Provider Unavailabl e Encounter Details Date Type Department Care Team (Late st Contact Info) Description 01/29/2021 Transcribed Document [facility] [place] [facility] [place] [address] ProviderDick MD [address] [place] [address] Social History Tobacco Use Types Packs/Day [...] Cerner Conversion Note - Historical ProviderMD - 01/29/2021 10:00 PM VALVE 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 History of Present Illness Patient is a 75-year-old female with past medical history of hypertension, hyperlipidemia, hypothyroidism, diabetes mellitus 2, who presents via transfer for evaluation after PEA cardiac arrest with acute hypoxic respiratory failure. Per report, patient was at radiology getting a cardiac stress test performed. Patient began having shortness of breath and had a PEA cardiac arrest. Patient underwent CPR/ACLS 1517 and regained pulse with atrial fibrillation after unknown amount of time. Patient was intubated and placed on mechanical ventilation. Patient was initiated on nitroglycerin and amiodarone for hypertension and atrial fibrillation. Patient had SBP of 220. Patient also found to have acute renal failure with creatinine 1.9. Transferred here for evaluation by cardiology, pulmonary critical care. Patient arrives intubated on no sedation. Review of Systems Unable to obtain ROS: due to clinical condition, due to altered mental status. Unable to obtain: Due to clinical condition, Due to altered mental status. Health Status Allergies: No active allergies have been recorded., No qualifying data available Current medications: (Selected) Inpatient Medications Ordered amiodarone injection 450 mg + Dextrose 5% in Water intravenous solution 250 mL: Titrate, IntraVENous Documented Medications Documented amLODIPine 2.5 mg [...] oral and rectal suspension: 0 Refill(s), Medications (1) Active Scheduled: (0) Continuous: (1) amiodarone 450 mg + Dextrose 5% in Water 250 mL 250 mL, IntraVENous PRN: (0) , Home Medications (10) Active amLODIPine 2.5 mg [...] 15 g/60 mL oral and rectal suspension Problem list: No qualifying data available Histories Past Medical History: Past medical history reviewed., Hypertension, hyperlipidemia, hypothyroidism, diabetes mellitus 2 Family History: Family history reviewed., Unable to obtain, altered mental status Procedure history: No active procedure history items have been selected or recorded. Social History Social & Psychosocial Habits No Data Available . Physical Examination VS/Measurements No qualifying data available General: Intubated on mechanical ventilation, off sedation unresponsive. Eye: Pupils are equal, round and reactive to light, Extraocular movements are intact, Normal conjunctiva. HENT: Normocephalic, Oral mucosa is moist, Atraumatic. Neck: Supple, Non-tender, No lymphadenopathy, No thyromegaly. Respiratory: Lungs are clear to auscultation, Respirations are non-labored, Breath sounds are equal, Symmetrical chest wall expansion, No chest wall tenderness, Intubated on ventilator, vent settings reviewed. Cardiovascular: Normal rate, Regular rhythm, No murmur, Good pulses equal in all extremities, No edema. Gastrointestinal: Soft, Non-distended, Normal bowel sounds, No organomegaly. Musculoskeletal: No swelling, No deformity, Atraumatic. Integumentary: Warm, Dry, Intact. Neurologic: Unresponsive off sedation, intubated on ventilator. Psychiatric: Unable to obtain. Review / Management Results review: No qualifying data available, No qualifying data available. Radiology results No Radiology Results Found Impression and Plan 01/29/2021 Chart reviewed, Lovenox DVT prophylaxis, Pepcid GI prophylaxis, n.p.o. Full code PEA cardiao pulmonary arrest Intubated on vent, off sedation Chest x-ray bilateral infiltrates EKG/telemetry reviewed Echocardiogram a.m. Amiodarone 4 atrial fibrillation Consult cardiology Consult neurology for evaluation Acute hypoxic respiratory failure requiring intubation 2/2 above Intubated on mechanical ventilation Chest x-ray bilateral infiltrates Off sedation, unresponsive Respiratory panel culture Zosyn Oxygen supplementation titration Respiratory care assessment Consult pulmonary critical care; vent management Hypertensive emergency On nitro, amiodarone Hydralazine as needed Unresponsive, likely anoxic brain injury CT brain unremarkable at outside facility Neurochecks Consult neurology for evaluation Diabetes mellitus 2 Insulin, insulin sliding scale, hold any home p.o. medications A1c Hypothyroidism Levothyroxine IV TSH documented in this encounter Plan of Treatment Not on file documented as of this encounter Visit Diagnoses Not on filedocumented in this encounter
--- OUTSIDE RECORDS SUMMARY | 2024-02-15 23:04 | XMS_ITS | Encounter Summary ---
Author Organization [employer] Address [address] [place] [address] Care Team Providers Care Senior Benefits Analyst Name Role Phone Unavailable Primary Care Provider Unavailabl e Encounter Details Date Type Department Care Team (Late st Contact Info) Description 01/29/2021 Transcribed Document [facility] Pulm & Critical Care Medicine [address] [place] [address] [address] [place] [address] Leti Varela MD [address] [facility] [address] [place] [address] Social History Tobacco Use Types Packs/Day Years Used Date Smoking Tobacco: Never Assessed Comments Unknown Sex and Gender Information Value Date Recorded Sex Assigned at Female 09/02/2021 8:59 PM CDT Legal Sex Female 8:59 PM CDT Gender Identity Female 09/02/2021 8:59 PM CDT Sexual Orientation Not on file documented as of this encounter Miscellaneous Notes * Cerner Conversion Note - Leti Varela MD - 01/29/2021 11:38 PM EST Patient: CISCO CAZARES Age: 75 years Sex: Female : 1945 Associated Diagnoses: None Author: VALENTINA BURNS PA-C Basic Information Date of consult: 01/29/21 Date [...] for atrial fibrillation. Patient was transferred to [facility] for further evaluation and higher level of [...] smoker. No drug or alcohol use documented Review of Systems Constitutional Respiratory Cardiovascular Gastrointestinal Genitourinary Immunologic Musculoskeletal Neurologic Unable to obtain: Due to clinical condition, Sedated on ventilator. Health Status Allergies: No active allergies have [...] g/60 mL oral and rectal suspension: 0 Refill(s) Physical Examination VS/Measurements No qualifying data available General: On the ventilator, currently no sedation, does not arouse or follow commands, no response to painful stimuli. Eye: Pupils are equal, round and reactive [...] swelling, No deformity. Integumentary: Warm, Intact. Neurologic: On ventilator, no sedation, not arousing or following commands, no response to painful stimuli, RASS -5. Review / Management No qualifying data available Results review: No qualifying data available. No Radiology Results Found Impression and Plan Acute hypoxemic respiratory failure Intubated sec to CP arrest Bilateral infiltrates: Right lung field greater than left. Ddx? Infectious versus edema. Cannot rule out aspiration Non smoker Cardiovascular PEA arrest at [facility], unknown time, brief - most probable respiratory arrest vs other History of hypertension Renal Acute kidney injury, non-oliguric Endocrinology Type 2 diabetes mellitus Hypothyroidism on levothyroxine at home GI/Nutrition Stable Hem/Onc No leukocytosis Neurology Post CP arrest. On ventilator without sedation, unresponsive CT head with no acute abnormalities at [facility] 01/29 1600 High risk for anoxic injury Plan: Vent bundle Vent settings: TV 400, rate 16, PEEP 8 Wean FiO2 for spO2>94% Hemodynamically stable Patient unresponsive, will hold off for sedation now. Neurochecks Consult neurology for post arrest unresponsiveness. Possible anoxic brain injury Glycemic control: SSIq6 Start levothyroxine Prophylaxis: Pepcid/Lovenox sq Blood culture Sputum culture Antibiotics: Given pulmonary infiltrates and cardiac arrest reasonable to start Zosyn to cover for aspiration pneumonia. Zosyn 4.5g x 1 then 3.375g IV q6 hrs. Obtain CT chest wo CODE STATUS: Full Disposition: ICU Patient experienced brief cardiopulmonary arrest at [facility]. I believe given the provided information this was most likely a hypoxemic/respiratory arrest. The code was documented at approximately 1500. Patient had CT scan of the head that was negative for intracranial abnormality. She does have bilateral infiltrates consistent with edema versus pneumonia versus aspiration. Patient was transferred to [facility] for further evaluation. Patient was examined and is unresponsive. No sedation has been started. Currently without gag reflex. Pupils are reactive. Patient is well outside of the timeframe for induced hypothermia. Will continue to monitor with neuro checks and hold sedation for now. Will obtain in house labs. Will consider based on renal function CT chest WO vs CTA. Update: Patient did awaken follow commands. Added Precedex and fentanyl for sedation. documented in this encounter Plan of Treatment Not on file documented as of this encounter Visit Diagnoses Not on filedocumented in this encounter
--- OUTSIDE RECORDS SUMMARY | 2024-02-15 23:04 | XMS_ITS | Encounter Summary ---
Author Organization [employer] Address [address] [place] [address] Care Team Providers Care Manager Operations Name Role Phone Unavailable Primary Care Provider Unavailabl e Encounter Details Date Type Department Care Team (Late st Contact Info) Description 01/30/2021 Transcribed Document [facility] [place] [place] Family Medicine [facility] [place] [address] ProviderDick MD [address] [place] [address] Social History Tobacco Use Types [...] Cerner Conversion Note - Historical ProviderMD - 01/30/2021 7:44 AM HUMANITIES AND LANGUAGES PROFESSOR Patient: CISCO CAZARES Age: 75 Years Sex: Female : 1945 Subjective 01/30/2021 Patient examined this morning. Patient is arousable to her name and does squeeze my hand but is still intubated. Spoke with Dr. Mclean as well as Dr. Morales about this patient. CT chest overnight showed bilateral infiltrates and was started on Abx by Pulm/CC last night. Patient also did become arousable at some point this morning. Formal consult to Cardiology was put in and patient had a COVID swab sent, since I see no record of one being done at the OSH or here. Vital Signs T: 36.9 ??C TMIN: 33.3 ??C TMAX: 36.9 ??C HR: 81(Monitored) RR: 34 BP: 114/62 BP: 120/44(Line) SpO2: 100% HT: 122.5 cm WT: 78.2 kg BMI: 52.1 Oxygen Settings (Last) Oxygen Therapy Mode: Mechanical ventilation (01/30/21 07:18:00) Oxygen Flow Rate: 60 Liter/Min (01/30/21 07:18:00) Intake & Output Totals Last 24 Hours (7a-7a) Input Total: 901.2174 mL Output Total: 400 mL Balance: 501.2174 mL Physical Exam General: Sedated and intubated, will open her eyes when her name is spoken. NAD Neurologic: Arousable to name and will squeeze hand on command. Eye: [PERRL, EOMI, normal conjunctiva, right eye with proptosis. HENT: [Normocephalic, ET tube in place, slightly dry oral mucosa. Neck: [Supple, non-tender, Central line in place Lungs:Diffuse bilateral rhonchi Heart: [Normal rate, regular rhythm, no murmur, gallop or edema]. Abdomen: [Soft, non-tender, non-distended, normal bowel sounds, no masses]. Musculoskeletal: No obvious deformities. Skin: [Skin is warm, dry and pink, no rashes or lesions]. Psychiatric: [Cooperative Assessment/Plan PEA cardiopulmonary arrest -Occurred at [facility] during a Stress Test with Dr. [...] Lovenox GI Prophylaxis:Pepcid COVID negative Full Code Dispo: Patient is post cardiac arrest. Upon arrival was unresponsive but now is more responsive. Pulmonary/critical care regarding care at this point. Cardiology consulted. Possible intervention at a later date. Patient being treated for pneumonia. Patient will likely have lengthy hospital stay. VTE Prophylaxis - Medical Enoxaparin 30 mg, SubCutaneous, Inj, [id number], Start 01/30/21 1:00:00 EST (VALENTINA BURNS) Sequential Compression Device Start: 01/29/21 22:39:00 EST, Bilateral, Length: Knee High, While patient is in bed, Continuous Order (CHRISTIANO CABEZAS) Medications dexmedeTOMIDine injection 400 mcg + NaCl 0.9% for drip 100 mL Dextrose 50% injection, 25 Gram= 50 mL, IV Push, Q15Min, PRN Dextrose 50% injection, 25 Gram= 50 mL, IV Push, Q15Min, PRN Dextrose 50% injection, 25 Gram= 50 mL, IV Push, Q15Min, PRN Dextrose 50% injection, 12.5 Gram= 25 mL, IV Push, Q15Min, PRN doxycycline + Sodium Chloride 0.9% intravenous solution 100 mL fentaNYL injection 2,000 mcg + Dextrose 5% in Water for Drip 60 mL fludrocortisone, 0.1 mg= 1 Tab, Oral, Daily glucagon, 1 mg= 1 mL, IntraMuscular, Q15Min, PRN glucose 4 g oral tablet, chewable, 16 Gram= 4 Tab, Chew, Q15Min, PRN glucose 40% oral gel, 15 Gram= 37.5 mL, Oral, Q15Min, PRN insulin regular sliding scale, Scale B, SubCutaneous, Q6H levothyroxine, 100 mcg= 1 Tab, Oral, Daily Lovenox, 30 mg= 0.3 mL, SubCutaneous, [id number] MiraLax, 17 Gram= 1 Packet, Oral, Daily, PRN NORepinephrine injection 8 mg + NaCl 0.9% for drip 250 mL Normal Saline 1,000 mL, 1000 mL, IntraVENous Normal Saline Flush, 10 mL, IV Push, Q12H Normal Saline Flush, 10 mL, IV Push, See Comment, PRN Pepcid, 20 mg= 2 mL, IV Push, Q12H SOLU-Medrol, 40 mg, IV Push, Q12H Tylenol, 650 mg= 2 Tab, Oral, Q4H, PRN vasopressin injection 20 Units [0.03 Units/min] + Dextrose 5% in Water for Drip 100 mL Zosyn + Sodium Chloride 0.9% intravenous solution 50 mL Zyvox, 600 mg= 300 mL, IV Piggyback, [id number] Diagnostic Results Radiology Results (Last 48 hours) [id number] -- 01/29/2021 22:07 CR Chest 1 Vw [...] is nopneumothorax.IMPRESSION: Endotracheal tube appropriately positioned. Bilateral near diffuse lung opacities.Images reviewed, interpreted, and dictated by [...] caliber andcourse.Basilar predominant extensive bilateral consolidative airspaceopacities. [id number] bilateral pleural effusions. Nopneumothorax.No mediastinal or axillary lymphadenopathy.No acuteAbdomen findings. Colonic diverticulosis without evidence ofdiverticulitis.IMPRESSION:1. Extensive diffuse bilateral consolidative opacities is consistent multifocal pneumonia.2. [id number] bilateral pleural effusions. Lab Results Test Name Test Result Date/Time pH Art 7.40 01/30/2021 05:57 EST pH Art 7.43 01/30/2021 00:10 EST pCO2 Art 31.5 mmHg (Low) 01/30/2021 05:57 EST pCO2 Art 24.1 mmHg (Critical) 01/30/2021 00:10 EST pO2 Art 81.4 mmHg 01/30/2021 05:57 EST pO2 Art 160.0 mmHg (High) 01/30/2021 00:10 EST HCO3 Art 19.4 mmol/L (Low) 01/30/2021 05:57 EST HCO3 Art 15.9 mmol/L (Low) 01/30/2021 00:10 EST BE Art -4.8 mmol/L (Low) 01/30/2021 05:57 EST BE Art -7.1 mmol/L (Low) 01/30/2021 00:10 EST sO2 Art 97.4 % 01/30/2021 05:57 EST sO2 Art >99.1 % 01/30/2021 00:10 EST tHb Art 8.6 Gram/dL (Low) 01/30/2021 05:57 EST tHb Art 10.0 Gram/dL (Low) 01/30/2021 00:10 EST FHHb 2.5 % 01/30/2021 05:57 EST FHHb <2.4 % 01/30/2021 00:10 EST ctO2 11.7 mmol/L 01/30/2021 05:57 EST FIO2 Art 75 01/30/2021 05:57 EST FIO2 Art 100 01/30/2021 00:10 EST Delivery Device Type Art Ventilator 01/30/2021 05:57 EST Delivery Device Type Art Ventilator 01/30/2021 00:10 EST Temperature, F Art 98.6 Deg F 01/30/2021 05:57 EST Temperature, F Art 98.6 Deg F 01/30/2021 00:10 EST Art Blood Gas (ABG) Site Arterial Line 01/30/2021 05:57 EST Art Blood Gas (ABG) Site Arterial Line 01/30/2021 00:10 EST Acceptable Davis's Test Art Acceptable 01/30/2021 05:57 EST Acceptable Davis's Test Art Non-Applicable 01/30/2021 00:10 EST Ventilator Mode Art Assist Control Ventilation 01/30/2021 05:57 EST Ventilator Mode Art AC 01/30/2021 00:10 EST Tidal Volume Set Art 400.0 mL 01/30/2021 05:57 EST Tidal Volume Set Art 400.0 mL 01/30/2021 00:10 EST Set Rate Art 16.0 01/30/2021 05:57 EST Set Rate Art 16.0 01/30/2021 00:10 EST Respiratory Rate Art 16.0 01/30/2021 05:57 EST Respiratory Rate Art 16.0 01/30/2021 00:10 EST CPAP/PEEP Art 8.0 cmH2O 01/30/2021 05:57 EST CPAP/PEEP Art 8.0 cmH2O 01/30/2021 00:10 EST Comment Art supine 01/30/2021 05:57 EST Comment Art supine 01/30/2021 00:10 EST ABG Num of Draw Attempts 1 01/30/2021 05:57 EST ABG Num of Draw Attempts 1 01/30/2021 00:10 EST PaO2/FiO2 calculated 109 01/30/2021 05:57 EST PaO2/FiO2 calculated 160 01/30/2021 00:10 EST Sodium Level 141 mmol/L 01/30/2021 03:30 EST Sodium Level 140 mmol/L 01/30/2021 00:12 EST Sodium Level 141 mmol/L 01/29/2021 22:54 EST Potassium Level 3.9 mmol/L 01/30/2021 03:30 EST Potassium Level 3.0 mmol/L (Low) 01/30/2021 00:12 EST Potassium Level 2.8 mmol/L (Critical) 01/29/2021 22:54 EST Chloride Level 109 mmol/L 01/30/2021 03:30 EST Chloride Level 107 mmol/L 01/30/2021 00:12 EST Chloride Level 107 mmol/L 01/29/2021 22:54 EST Carbon Dioxide Level 22 mmol/L 01/30/2021 03:30 EST Carbon Dioxide Level 23 mmol/L 01/30/2021 00:12 EST Carbon Dioxide Level 21 mmol/L 01/29/2021 22:54 EST Anion Gap 14 01/30/2021 03:30 EST Anion Gap 13 01/30/2021 00:12 EST Anion Gap 16 01/29/2021 22:54 EST Glucose Level 194 mg/dL (High) 01/30/2021 03:30 EST Glucose Level 234 mg/dL (High) 01/30/2021 00:12 EST Glucose Level 276 mg/dL (High) 01/29/2021 22:54 EST Blood Urea Nitrogen 30 mg/dL (High) 01/30/2021 03:30 EST Blood Urea Nitrogen 29 mg/dL (High) 01/30/2021 00:12 EST Blood Urea Nitrogen 29 mg/dL (High) 01/29/2021 22:54 EST Creatinine Level 2.30 mg/dL (High) 01/30/2021 03:30 EST Creatinine Level 2.20 mg/dL (High) 01/30/2021 00:12 EST Creatinine Level 2.30 mg/dL (High) 01/29/2021 22:54 EST eGFR 25 mL/min/1.73m2 (Low) 01/30/2021 03:30 EST eGFR 27 mL/min/1.73m2 (Low) 01/30/2021 00:12 EST eGFR 25 mL/min/1.73m2 (Low) 01/29/2021 22:54 EST eGFR NonAfrican 21 mL/min/1.73m2 (Low) 01/30/2021 03:30 EST eGFR NonAfrican 22 mL/min/1.73m2 (Low) 01/30/2021 00:12 EST eGFR NonAfrican 21 mL/min/1.73m2 (Low) 01/29/2021 22:54 EST Bun/Creatinine 13.0 01/30/2021 03:30 EST Bun/Creatinine 12.6 01/30/2021 00:12 EST Bun/Creatinine 12.6 01/29/2021 22:54 EST Calcium Level 8.3 mg/dL (Low) 01/30/2021 03:30 EST Calcium Level 8.9 mg/dL 01/30/2021 00:12 EST Calcium Level 9.0 mg/dL 01/29/2021 22:54 EST Protein Total 5.9 Gram/dL (Low) 01/30/2021 03:30 EST Albumin Level 2.8 Gram/dL (Low) 01/30/2021 03:30 EST Globulin 3.1 Gram/dL 01/30/2021 03:30 EST A/G Ratio 0.9 (Low) 01/30/2021 03:30 EST Bilirubin Total 0.6 mg/dL 01/30/2021 03:30 EST Alk Phos 64 Units/Liter 01/30/2021 03:30 EST AST 21 Units/Liter 01/30/2021 03:30 EST ALT 11 Units/Liter (Low) 01/30/2021 03:30 EST Magnesium Level 1.5 mg/dL 01/29/2021 22:54 EST Ammonia Level 23.0 uMol/L 01/30/2021 00:12 EST Device Comment 1 Notified Nurse RBV 01/30/2021 05:20 EST Glucose POC2 150 mg/dL (High) 01/30/2021 05:20 EST Lactic Acid Level 3.3 mmol/L (Critical) 01/30/2021 03:30 EST Lactic Acid Level 5.0 mmol/L (Critical) 01/29/2021 22:54 EST Calcium Ionized 1.09 mmol/L (Low) 01/30/2021 00:12 EST Troponin I Ultra 0.771 ng/mL (Critical) 01/29/2021 22:54 EST ProBNP 2987 pg/mL (High) 01/29/2021 22:54 EST WBC 7.8 K/uL 01/30/2021 00:12 EST WBC 9.7 K/uL 01/29/2021 22:54 EST RBC 3.52 Million/uL (Low) 01/30/2021 00:12 EST RBC 3.70 Million/uL (Low) 01/29/2021 22:54 EST Hgb 10.9 g/dL (Low) 01/30/2021 00:12 EST Hgb 11.7 g/dL 01/29/2021 22:54 EST Hct 33.4 % (Low) 01/30/2021 00:12 EST Hct 35.3 % 01/29/2021 22:54 EST MCV 94.9 fL (High) 01/30/2021 00:12 EST MCV 95.4 fL (High) 01/29/2021 22:54 EST MCH 31.0 pg 01/30/2021 00:12 EST MCH 31.6 pg 01/29/2021 22:54 EST MCHC 32.6 Gram/dL 01/30/2021 00:12 EST MCHC 33.1 Gram/dL 01/29/2021 22:54 EST Platelet Count 262 K/uL 01/30/2021 00:12 EST Platelet Count 290 K/uL 01/29/2021 22:54 EST MPV 10.5 fL 01/30/2021 00:12 EST MPV 10.1 fL 01/29/2021 22:54 EST RDW 15.5 % (High) 01/30/2021 00:12 EST RDW 15.5 % (High) 01/29/2021 22:54 EST Neut % 83.4 % (High) 01/30/2021 00:12 EST Neut % 79.3 % (High) 01/29/2021 22:54 EST Neut # 6.48 K/uL (High) 01/30/2021 00:12 EST Neut # 7.72 K/uL (High) 01/29/2021 22:54 EST Lymph % 9.6 % (Low) 01/30/2021 00:12 EST Lymph % 13.1 % (Low) 01/29/2021 22:54 EST Lymph # 0.75 x10(3)/uL (Low) 01/30/2021 00:12 EST Lymph # 1.27 x10(3)/uL 01/29/2021 22:54 EST Hickman % 5.9 % 01/30/2021 00:12 EST Hickman % 6.7 % 01/29/2021 22:54 EST Hickman # 0.46 K/uL 01/30/2021 00:12 EST Hickman # 0.65 K/uL 01/29/2021 22:54 EST Eos % 0.1 % 01/30/2021 00:12 EST Eos % 0.2 % 01/29/2021 22:54 EST Eos # .01 x10(3)/uL 01/30/2021 00:12 EST Eos # 0.02 x10(3)/uL 01/29/2021 22:54 EST Baso % 0.4 % 01/30/2021 00:12 EST Baso % 0.3 % 01/29/2021 22:54 EST Baso # 0.03 x10(3)/uL 01/30/2021 00:12 EST Baso # 0.03 x10(3)/uL 01/29/2021 22:54 EST nRBC 0.020 (High) 01/30/2021 00:12 EST nRBC 0.020 (High) 01/29/2021 22:54 EST RBC Morphology Abnormal 01/30/2021 00:12 EST RBC Morphology Abnormal 01/29/2021 22:54 EST Anisocytosis 1+ (Abnormal) 01/30/2021 00:12 EST Anisocytosis 1+ (Abnormal) 01/29/2021 22:54 EST Poikilocytosis 1+ (Abnormal) 01/30/2021 00:12 EST Poikilocytosis 1+ (Abnormal) 01/29/2021 22:54 EST Ovalocytes 1+ (Abnormal) 01/30/2021 00:12 EST Ovalocytes 1+ (Abnormal) 01/29/2021 22:54 EST Macrocytosis 1+ (Abnormal) 01/30/2021 00:12 EST Macrocytosis 1+ (Abnormal) 01/29/2021 22:[address] Estimate Adequate 01/30/2021 00:[address] Estimate Adequate 01/29/2021 22:54 EST Slide Review Technologist 01/30/2021 00:12 EST Slide Review Technologist 01/29/2021 22:54 EST IG# 0.05 x10(3)/uL 01/30/2021 00:12 EST IG# 0.04 x10(3)/uL 01/29/2021 22:54 EST IG% 0.60 % 01/30/2021 00:12 EST IG% 0.40 % 01/29/2021 22:54 EST PT 12.5 Second(s) (High) 01/29/2021 22:54 EST INR 1.2 01/29/2021 22:54 EST PTT 31.8 Second(s) 01/29/2021 22:54 EST Procalcitonin 8.38 ng/mL (High) 01/29/2021 22:54 EST TSH 1.910 mcInt Units/mL 01/29/2021 22:54 EST Electronically signed by Parviz, [facility] Conversion Racing Mechanic Cerner at 06/22/2022 7:28 PM CDT documented in this encounter Plan of Treatment Not on file documented as of this encounter Visit Diagnoses Not on filedocumented in this encounter
--- OUTSIDE RECORDS SUMMARY | 2024-02-15 23:04 | XMS_ITS | Encounter Summary ---
Author Organization [employer] Address [address] [place] [address] Care Team Providers Care Business Education Instructor Name Role Phone Unavailable Primary Care Provider Unavailabl e Encounter Details Date Type Department Care Team (Late st Contact Info) Description 01/30/2021 Historic Encounter [facility] [address] [place] [address] Provider, [facility] Historical Social History Tobacco [...] Procedure Name Priority Date/Time Associated Diagnosis Comments BRONCHIAL CULTURE + GRAM STAIN Routine 01/30/2021 10:46 AM EST documented in this encounter Results * Bronchial Culture + Gram Stain (01/30/2021 10:46 AM EST) Final No growth Pre No growth GS No organisms seen. Few White Blood Cells 01/30/2021 10:4 6 AM EST 01/30/2021 6:33 PM EST [facility] Historical Provider MICROBIOLOGY - GENERAL ORDERABLES Final Result [facility] [address] [place] [id number] [phone] documented in this encounter Visit Diagnoses Not on filedocumented in this encounter
--- OUTSIDE RECORDS SUMMARY | 2024-02-15 23:04 | XMS_ITS | Encounter Summary ---
Author Organization [employer] Address [address] [place] [address] Care Team Providers Care Healthcare Market Consultant Name Role Phone Unavailable Primary Care Provider Unavailabl e Encounter Details Date Type Department Care Team (Late st Contact Info) Description 01/30/2021 Historic Encounter [facility] [address] [place] [address] Provider, [facility] Historical [...] Priority Date/Time Associated Diagnosis Comments MAGNESIUM LEVEL ([facility] DATA CONV) Routine 01/30/2021 4:18 PM EST documented in this encounter Results * (ABNORMAL) MAGNESIUM LEVEL ([facility] BK DATA CONV) (01/30/2021 4:18 PM EST) Magnesium Level 1.4(L) 1.5 - 2.4 mg/dL 01/30/2021 9:42 PM EST Blood 01/30/2021 4:18 PM EST 01/30/2021 9:22 PM EST us [facility] Historical Provider LAB BLOOD ORDERABLES Fi nal Result [facility] [address] [place] [id number] [phone] documented in this encounter Visit Diagnoses Not on filedocumented in this encounter
--- OUTSIDE RECORDS SUMMARY | 2024-02-15 23:04 | XMS_ITS | Encounter Summary ---
Author Organization [employer] Address [address] [place] [address] Care Team Providers Care Supervisor Mechanic Boilermaking Name Role Phone Unavailable Primary Care Provider Unavailabl e Encounter Details Date Type Department Care Team (Late st Contact Info) Description 01/30/2021 Historic Encounter [address] [address] ProviderFredrick Historical Social History Tobacco [...] [facility] DATA CONV) Routine 01/30/2021 4:18 PM EST documented in this encounter Results * (ABNORMAL) CMP COMPREHENSIVE METABOLIC PANEL ([facility] BK DATA CONV) (01/30/2021 4:18 PM EST) Sodium Level 138 136 - 146 mmol/L 01/30/2021 11:08 PM EST Potassium Level 6.0(H) 3.5 - 5.1 mmol/L 01/30/2021 11:08 PM EST Chloride Level 111 102 - 112 mmol/L 01/30/2021 11:08 PM EST Carbon Dioxide Level 18(L) 21 - 32 mmol/L 01/30/2021 11:08 PM EST Anion Gap 15 9 - 20 01/30/2021 11:08 PM EST Calcium Level 8.4 8.4 - 10.1 mg/dL 01/30/2021 11:08 PM EST Glucose Level 222(H) 74 - 106 mg/dL 01/30/2021 11:08 PM EST Comment: [employer] has become aware of sulfasalazine and sulfapyridine [...] administration of the drug. Blood Urea Nitrogen 30(H) 7 - 22 mg/dL 01/30/2021 11:08 PM EST Creatinine Level 2.50(H) 0.55 - 1.02 mg/dL 01/30/2021 11:08 PM EST Bun/Creatinine 12.0 8.0 - 20.0 01/30/2021 11:08 PM EST Albumin Level 2.8(L) 3.4 - 5.0 Gram/dL 01/30/2021 11:08 PM EST Protein, Total 6.1(L) 6.4 - 8.2 Gram/dL 01/30/2021 11:08 PM EST A/G Ratio 0.8(L) 1.1 - 2.5 01/30/2021 11:08 PM EST Alk Phos 55 27 - 136 Units/Lit er 01/30/2021 11:08 PM EST ALT 11(L) 13 - 56 Units/Lit er 01/30/2021 11:08 PM EST Comment: [employer] has become aware of sulfasalazine and sulfapyridine [...] prior to administration of the drug. AST 29 5 - 37 Units/Lit er 01/30/2021 11:08 PM EST Comment: [employer] has become aware of sulfasalazine and sulfapyridine [...] Bilirubin, Total 0.5 0.2 - 1.2 mg/dL 01/30/2021 11:08 PM EST Comment: Total bilirubin results may be falsely elevated in patients undergoing treatment with eltrombopag (Promacta). Results should be correlated to clinical symptomology and additional laboratory testing including other markers for liver function, e.g., alanine aminotransferase, aspartate aminotransferase, alkaline phosphatase, and/or lactate dehydrogenase. Globulin 3.3 1.5 - 4.5 Gram/dL 01/30/2021 11:08 PM EST eGFR 23(L) >=60 mL/min/1. 73m2 01/30/2021 11:09 PM EST Comment: GFR <60 suggests chronic kidney disease, if found over 3 month period. GFR <15 indicates renal failure. eGFR NonAfrican 19(L) >=60 mL/min/1. 73m2 01/30/2021 11:09 PM EST Comment: GFR <60 suggests chronic kidney disease, if found over 3 month period. GFR <15 indicates renal failure. Blood 01/30/2021 4:18 PM EST 01/30/2021 10:53 PM EST [facility] Historical Provider LAB BLOOD ORDERABLES Fi nal Result [facility] [address] [place], [place] [address] [phone] documented in this encounter Visit Diagnoses Not on filedocumented in this encounter
--- OUTSIDE RECORDS SUMMARY | 2024-02-15 23:04 | XMS_ITS | Encounter Summary ---
Author Organization [employer] Address [address] [place] [address] Care Team Providers Care Linen Manager Name Role Phone Unavailable Primary Care Provider Unavailabl e Encounter Details Date Type Department Care Team (Late st Contact Info) Description 01/30/2021 Historic Encounter [address] [address] Fredrick Spivey Historical Social History [...] Procedure Name Priority Date/Time Associated Diagnosis Comments CELL COUNT BODY FLUID W/ DIFF IF IND ([facility] DATA CONV) Routine 01/30/2021 10:46 AM EST documented in this encounter Results * CELL COUNT BODY FLUID W/ DIFF IF IND ([facility] BK DATA CONV) (01/30/2021 10:46 AM EST) Body Fluid Type BAL Fl 01/30/2021 7:31 PM EST Color, BF Yellow 01/30/2021 7:31 PM EST Appearance BF Cloudy 01/30/2021 7:31 PM EST WBC BF Chamber L 605 01/30/2021 7:31 PM EST WBC BF Chamber R 608 01/30/2021 7:31 PM EST Dilution Factor WBC BF 1 01/30/2021 7:31 PM EST Num Squares Counted WBC BF 10 01/30/2021 7:31 PM EST Volume WBC BF 0.1 01/30/2021 7:31 PM EST WBC/Nucleated Cells BF 1213 0 - 79588 /uL 01/30/2021 7:31 PM EST Comment:There is normally no readily obtainable pleural, peritoneal, and pericardial fluid, hence normal elements for these potential fluids are not defined. RBC BF Chamber L 23 01/30/2021 7:31 PM EST RBC BF Chamber R 23 01/30/2021 7:31 PM EST Dilution Factor RBC BF 1 01/30/2021 7:31 PM EST Num Squares Counted RBC BF 10 01/30/2021 7:31 PM EST Volume RBC BF 0.004 01/30/2021 7:31 PM EST RBC Count BF 1150 0 - 19877 /uL 7:31 PM EST Comment: Please refer to specific RBC count body fluid reference ranges below: Pericardial Fl ??[phone] ?? Peritoneal Fl ??[phone] ? Pleural Fl ??[phone] ? Synovial Fl ??0-200 ?? Thoracentesis ??[phone] Correlate BF Correlated Correlated 01/30/2021 7:31 PM EST Comment:Hemacytometer cell c ount cellularity confirmed by correlation with cytospin result. BF Diff? Add Diff BF 01/30/2021 7:31 PM EST QC Performed and Accepted Yes 01/30/2021 7:31 PM EST 01/30/2021 10:4 6 AM EST 01/30/2021 7:15 PM EST us [facility] Historical Provider BODY FLUIDS AND STOOLS ORDERABLES Final Result [facility] [address] [place], [place] [id number] [place] [address] documented in this encounter Visit Diagnoses Not on filedocumented in this encounter
--- OUTSIDE RECORDS SUMMARY | 2024-02-15 23:04 | XMS_ITS | Encounter Summary ---
Author Organization [employer] Address [address] [place] [address] Care Team Providers Care Ballistician Name Role Phone Unavailable Primary Care Provider Unavailabl e Encounter Details Date Type Department Care Team (Late st Contact Info) Description 01/30/2021 Historic Encounter [facility] [address] [place] [address] Provider, [facility] Historical Social History Tobacco Use Types [...] Priority Date/Time Associated Diagnosis Comments CULTURE, BLOOD ([facility] DATA CONV) Routine 01/30/2021 12:14 AM EST documented in this encounter Results * CULTURE, BLOOD ([facility] DATA CONV) (01/30/2021 12:14 AM EST) Final No growth at 5 days. Final Pre No growth at 4 days. Pre Pre No growth at 3 days. Pre Pre No growth at 2 days. Pre Pre No growth at 1 day. Pre Pre Culture less than 24 Hrs old Pre Blood 01/30/2021 12:1 4 AM EST 01/30/2021 5:30 AM EST [facility] Historical Provider LAB BLOOD ORDERABLES Fi nal Result [facility] [address] [place] [address], [facility] [phone] documented in this encounter Visit Diagnoses Not on filedocumented in this encounter
--- OUTSIDE RECORDS SUMMARY | 2024-02-15 23:04 | XMS_ITS | Encounter Summary ---
Author Organization [employer] Address [address] [place] [address] Care Team Providers Care Joint Yarner Name Role Phone Unavailable Primary Care Provider Unavailabl e Encounter Details Date Type Department Care Team (Late st Contact Info) Description 01/30/2021 Transcribed Document [facility] [facility] [place] [address] ProviderDick MD [address] [place] [address] Social History Tobacco Use Types [...] Conversion Note - Historical ProviderMD - 01/30/2021 8:39 AM REGISTRATION REPRESENTATIVE Consult Phone Call Documentation Entered On: 01/30/2021 8:49 EST Performed On: 01/30/2021 8:39 EST by Arianna Jenkins [employer] Fabrication Supervisor-Health Unit Coord Phone Call for Consults Consult Reason : bassam justino kolbeffer in [facility] Arianna Jenkins, Plastics Fabrication Supervisor-Health Unit Coord - 01/30/2021 8:48 EST documented in this encounter Plan of Treatment Not on file documented as of this encounter Visit Diagnoses Not on filedocumented in this encounter
--- OUTSIDE RECORDS SUMMARY | 2024-02-15 23:04 | XMS_ITS | Encounter Summary ---
Author Organization [employer] In iatives Address [address] [place] [address] Care Team Providers Care Marketing Underwriter Name Role Phone Unavailable Primary Care Provider Unavailabl e Encounter Details Date Type Department Care Team (Late st Contact Info) Description 01/30/2021 Historic Encounter [address] [address] ProviderFredrick Historical Social History Tobacco [...] Priority Date/Time Associated Diagnosis Comments [facility] Routine 01/30/2021 12:12 AM EST documented in this encounter Results * (ABNORMAL) AUTOMATED DIFFERENTIAL ([facility] DATA CONV) (01/30/2021 12:12 AM EST) Neut% 83.4(H) 34.0 - 71.0 % 01/30/2021 5:38 AM EST Lymph% 9.6(L) 19.3 - 53.1 % 01/30/2021 5:38 AM EST Bee% 5.9 3.0 - 9.0 % 01/30/2021 5:38 AM EST Eos% 0.1 0.0 - 7.0 % 01/30/2021 5:38 AM EST Baso% 0.4 0.0 - 1.5 % 01/30/2021 5:38 AM EST IG% 0.60 0.00 - 0.60 % 01/30/2021 5:38 AM EST Neut# 6.48(H) 1.56 - 6.13 K/uL 01/30/2021 5:38 AM EST Lymph# 0.75(L) 1.00 - 3.90 x10(3)/uL 01/30/2021 5:38 AM EST Bee# 0.46 0.16 - 1.00 K/uL 01/30/2021 5:38 AM EST Eos# 0.01 0.00 - 0.80 x10(3)/uL 01/30/2021 5:38 AM EST Baso# 0.03 0.00 - 0.20 x10(3)/uL 01/30/2021 5:38 AM EST IG# 0.05 0.00 - 0.05 x10(3)/uL 01/30/2021 5:38 AM EST Blood 01/30/2021 12:1 2 AM EST 01/30/2021 5:30 AM EST Narrative [facility] - 01/30/2021 6:05 AM EST Added by Discern Expert us Sle Historical Provider LAB BLOOD ORDERABLES Fi nal Result [facility] [address] [phone] documented in this encounter Visit Diagnoses Not on filedocumented in this encounter
--- OUTSIDE RECORDS SUMMARY | 2024-02-15 23:04 | XMS_ITS | Encounter Summary ---
Author Organization [employer] i[employer] Address [address] [place] [address] Care Team Providers Care Ornamental Ironworker Name Role Phone Unavailable Primary Care Provider Unavailabl e Encounter Details Date Type Department Care Team (Late st Contact Info) Description 01/30/2021 Transcribed Document [facility] [address] [place] [address] [address] [place] [address] Bianka Birmingham MD [address] [facility] [address] [place] [address] Social History Tobacco Use Types [...] Conversion Note - Bianka Birmingham MD - 01/30/2021 2:51 PM EST Patient: CISCO CAZARES Age: 75 [...] for atrial fibrillation. Patient was transferred to [facility] for further evaluation and higher [...] significant consolidations consistent with pneumonia. Currently afebrile proceeded to FOB infusions: - levo - Precedex - fentanyl Review of Systems Constitutional Respiratory Cardiovascular Gastrointestinal Genitourinary Immunologic Musculoskeletal Neurologic Unable to obtain: Due to clinical condition, Sedated on ventilator. Health Status Allergies: Allergic Reactions (Selected) No [...] Oral, At Bedtime Lovenox: 30 mg, SubCutaneous, [id number] MiraLax: 17 Gram, Oral, Daily, PRN: Constipation [...] mg, 300 mL, 300 mL/Hr, IV Piggyback, U00NYmi dexmedeTOMIDine injection 400 mcg + NaCl 0.9% for drip 100 mL: TITRATE, IntraVENous doxycycline + Sodium Chloride 0.9% intravenous solution 100 mL: 100 mg, 50 mL/Hr, IV Piggyback, O39FGio fentaNYL injection 2,000 mcg + Dextrose 5% in Water for Drip 60 mL: TITRATE, IntraVENous fludrocortisone: 0.1 mg, Oral, Daily glucagon: 1 mg, IntraMuscular, Q15Min, PRN: Other (See Comment) glucose 4 g oral tablet, chewable: 16 Gram, 4 Tab, Chew, Q15Min, PRN: Other (See Comment) glucose 40% oral gel: 15 Gram, 37.5 mL, Oral, Q15Min, PRN: Other (See Comment) insulin regular sliding scale: Scale B, SubCutaneous, Q6H levothyroxine: 100 mcg, Oral, Daily vasopressin injection 20 Units [0.03 Units/min] + [...] oral and rectal suspension: 0 Refill(s), Medications (26) Active Scheduled: (11) #NaCl 0.9% *FLUSH* inj 10 mL 10 mL, IV Push, Q12H atorvastatin 10 mg tab 10 mg 1 Tab, Oral, At Bedtime doxycycline hyclate + NaCl 0.9% 100 mL 100 mg, IV Piggyback, L95UDmh enoxaparin 30 mg/0.3 ml inj 30 mg 0.3 mL, SubCutaneous, U91CHed famotidine 20 mg/2 mL inj 20 mg 2 mL, IV Push, Q12H fludrocortisone 0.1 mg tab 0.1 mg 1 Tab, Oral, Daily insulin regular 1 unit/0.01 mL inj 3mL Scale B, SubCutaneous, Q6H levothyroxine 100 mcg tab 100 mcg 1 Tab, Oral, Daily linezolid *PREMIX* 600 mg 300 mL, IV Piggyback, J86WQoj methylPREDNISolone SUCCinate 40 mg inj 40 mg, IV Push, Q12H piperacillin-tazobactam + NaCl 0.9% 50 mL 2.25 Gram, IV Piggyback, Q8HInt Continuous: (5) dexmedeTOMIDine 400 mcg + NaCl [...] Problem list: Medical Hypertension / SNOMED CT [id number] / Confirmed, Active Problems (1) Hypertension Physical Examination VS/Measurements Vitals Signs (last 24 hrs) Last Charted Minimum Maximum Temp H 99.9 (JAN 30 08:00) L 91.9 (JAN 29 22:30) H 99.9 (JAN 30 08:00) Mon HR 76 (JAN 30 10:45) 65 (JAN 29 22:30) 104 (JAN 29 22:15) Resp Rate H 34 (JAN 30 03:00) H 22 (JAN 29 23:00) H 44 (JAN 30 01:59) SBP H 166 (JAN 30 10:45) 99 (JAN 30 03:30) H 166 (JAN 30 10:30) DBP 70 (JAN 30 10:45) L 56 (JAN 30 01:00) 70 (JAN 30 03:45) MAP 81 (JAN 30 10:45) 34 (JAN 30 03:15) 103 (JAN 30 02:15) SpO2 100 (JAN 30 10:45) L 87 (JAN 29 22:30) 100 (JAN 29 23:30) General: On the ventilator, now sedated with Precedex, will arouse and follow commands, RASS -2. Eye: Pupils are equal, round and reactive [...] No deformity. Integumentary: Warm, Intact. Neurologic: On the ventilator, now sedated with Precedex, will arouse and follow commands, RASS -2. Review / Management JAN 30 00:12 140 107 H 29 / H 234 L 3.0 23 H 2.20 \ Results review: Labs (Last four charted values) WBC 7.8 (JAN 30) 9.7 (JAN 29) HB L 10.9 (JAN 30) 11.7 (JAN 29) HCT L 33.4 (JAN 30) 35.3 (NOV ) Plt 262 (JAN 30) 290 (NOV ) Na 141 (JAN 30) 140 (JAN 30) 141 (NOV ) K 3.9 (JAN 30) L 3.0 (JAN 30) C 2.8 (JAN 29) Cl 109 (JAN 30) 107 (JAN 30) 107 (NOV ) CO2 22 (JAN 30) 23 (NOV ) 21 (NOV ) BUN H 30 (JAN 30) H 29 (JAN 30) H 29 (JAN 29) Cr H 2.30 (JAN 30) H 2.20 (JAN 30) H 2.30 (NOV ) Glu R H 194 (JAN 30) H 234 (JAN 30) H 276 (NOV ) Ca L 8.3 (JAN 30) 8.9 (JAN 30) 9.0 (NOV ) Lactic 1.7 (JAN 30) C 3.3 (JAN 30) C 5.0 (JAN 29) PT H 12.5 (JAN 29) INR 1.2 (JAN 29) PTT 31.8 (JAN 29) AST 21 (JAN 30) ALT L 11 (JAN 30) ALK P 64 (JAN 30) T Bili 0.6 (JAN 30) PTN L 5.9 (JAN 30) ALB L 2.8 (JAN 30) Troponin C 0.771 (JAN 29) . Radiology Results (Last 48 hours) [id number] -- 01/29/2021 22:07 CR Chest 1 Vw [...] caliber andcourse.Basilar predominant extensive bilateral consolidative airspaceopacities. Mrxcs-tg-[id number] bilateral pleural effusions. Nopneumothorax.No mediastinal or axillary lymphadenopathy.No acuteAbdomen findings. Colonic diverticulosis without evidence ofdiverticulitis.IMPRESSION:1. Extensive diffuse bilateral consolidative opacities is consistentmultifocal pneumonia.2. Xzils-ei-yfugjkzm bilateral pleural effusions. CT scan of the chest done 01/30/2021 reviewed and visualized and patient has extensive bilateral opacities/consolidations very minimal pleural effusions (I disagree with the blood moderate) ET tube in appropriate place. Patient has a right internal jugular ending in SVC. COVID-19 is negative Blood cultures pending Sputum [...] aspiration Non smoker Cardiovascular PEA arrest at [facility], unknown time, brief - most [...] CT head with no acute abnormalities at [facility] 01/29 1600 Acute encephalopathy/improved patient is responding. [...] are: Patient experienced brief cardiopulmonary arrest at [facility]. I believe given the provided information this was most likely a hypoxemic/respiratory arrest. The code was documented at approximately 1500. Patient had CT scan of the head that was negative for intracranial abnormality. She does have bilateral infiltrates consistent with pneumonia probable aspiration. Patient was transferred to [facility] for further evaluation. Patient was examined and is unresponsive. No sedation has been started. Patient is well outside of the timeframe for induced hypothermia. Will extend antibiotic coverage to include Zosyn, doxycycline, Zyvox. Patient had diagnostic bronchoscopy with BAL/cultures. Vent bundle Vent settings: TV 400, rate 16, PEEP 8 Wean FiO2 for spO2>94% Hemodynamically on norepinephrine, maintain MAP greater than 65 Will add vasopressin 0.03 units/min in conjunction with norepinephrine exceeding 0.15 mcg/kg/min --Patient woke up and followed commands. Will discontinue neurology consult Sedation: Precedex and fentanyl, goal RASS -2/-1 Glycemic control: SSIq6 Start levothyroxine 100mcg daily (home dose) Prophylaxis: Pepcid/Lovenox sq Blood culture Sputum culture Obtained and reviewed CT chest: Patient has severe bilateral infiltrates with consolidation: Most probable community-acquired pneumonia Obtain pneumonia panel Antibiotics: On Zosyn initially for aspiration, will extend coverage with doxycycline 100mg IV q12 and Zyvox 600mg IV q12 Add IVF: normal saline at 75cc/hr with fluid bolus Start Solumerol 40mg IV q12 and fludrocortisone: stop Start Colace/senna Consult dietitian Place a CorPak Start tube feeding. CODE STATUS: Full Disposition: ICU cct 81 mins without bronchoscopy ( chart reviewed , discussed with hospitalist) NURSE and RT claudine documented in this encounter Plan of Treatment Not on file documented as of this encounter Visit Diagnoses Not on filedocumented in this encounter
--- OUTSIDE RECORDS SUMMARY | 2024-02-15 23:04 | XMS_ITS | Encounter Summary ---
Author Organization [employer] In [employer]atives Address [address] [place] [address] Care Team Providers Care Clay Caster Name Role Phone Unavailable Primary Care Provider Unavailabl e Encounter Details Date Type Department Care Team (Late st Contact Info) Description 01/29/2021 Historic Encounter [facility] [address] [place] [address] Provider, [facility] Historical Social History Tobacco Use [...] Procedure Name Priority Date/Time Associated Diagnosis Comments PTT ([facility] DATA CONV) Routine 01/29/2021 10:54 PM EST documented in this encounter Results * PTT ([facility] BKR DATA CONV) (01/29/2021 10:54 PM EST) PTT 31.8 22.0 - 33.0 Second(s) 01/30/2021 4:17 AM EST Blood 01/29/2021 10:5 4 PM EST 01/30/2021 4:04 AM EST [facility] Historical Provider LAB BLOOD ORDERABLES Fi nal Result [facility] [address] [place], [place] [address] [phone] documented in this encounter Visit Diagnoses Not on filedocumented in this encounter
--- OUTSIDE RECORDS SUMMARY | 2024-02-15 23:04 | XMS_ITS | Encounter Summary ---
Author Organization [employer] i[employer] Address [address] [place] [address] Care Team Providers Care Grape Picker Name Role Phone Unavailable Primary Care Provider Unavailabl e Encounter Details Date Type Department Care Team (Late st Contact Info) Description 01/30/2021 Historic Encounter [address] [address] ProviderBronwyn Historical Social History Tobacco [...] Date/Time Associated Diagnosis Comments GLUCOSE-POC Routine 01/30/2021 6:15 PM EST documented in this encounter Results * (ABNORMAL) Glucose, Point of Care (01/30/2021 6:15 PM EST) Glucose POC2 209(H) 70 - 110 mg/dL 01/30/2021 11:15 PM EST [facility] Building Trades Instructor [id number] 01/30/2021 11:15 PM EST [facility] Device SN [id number] 01/30/2021 11:15 PM EST [facility] Device Comment1 Notified Nurse RBV 01/30/2021 11:15 PM EST [facility] Blood 01/30/2021 6:15 PM EST 01/30/2021 11:16 PM EST [facility] Historical Provider POINT OF CARE TEST JEFFREY MERIDA Final Result [facility] [address] [phone] documented in this encounter Visit Diagnoses Not on filedocumented in this encounter
--- OUTSIDE RECORDS SUMMARY | 2024-02-15 23:04 | XMS_ITS | Encounter Summary ---
Author Organization [employer] In iatives Address [address] [place] [address] Care Team Providers Care Mobile Sales Assistant Name Role Phone Unavailable Primary Care Provider Unavailabl e Encounter Details Date Type Department Care Team (Late st Contact Info) Description 01/30/2021 Historic Encounter [address] [address] Provider, [facility] Historical Social History Tobacco Use [...] Date/Time Associated Diagnosis Comments GLUCOSE-POC Routine 01/30/2021 11:25 PM EST documented in this encounter Results * (ABNORMAL) Glucose, Point of Care (01/30/2021 11:25 PM EST) Glucose POC2 252(H) 70 - 110 mg/dL 01/31/2021 4:25 AM EST [facility] Corporate Recruiter [id number] 01/31/2021 4:25 AM EST [facility] Device SN [id number] 01/31/2021 4:25 AM EST [facility] Device Comment1 Notified Nurse RBV 01/31/2021 4:25 AM EST [facility] Blood 01/30/2021 11:2 5 PM EST 01/31/2021 4:26 AM EST [facility] Historical Provider POINT OF CARE TEST ORDE MAGNOLIA Final Result [facility] [address] [phone] documented in this encounter Visit Diagnoses Not on filedocumented in this encounter
--- OUTSIDE RECORDS SUMMARY | 2024-02-15 23:04 | XMS_ITS | Encounter Summary ---
Author Organization [employer] Address [address] [place] [address] Care Team Providers Care Molder Inflated Ball Name Role Phone Unavailable Primary Care Provider Unavailabl e Encounter Details Date Type Department Care Team (Late st Contact Info) Description 01/29/2021 Historic Encounter [address] [address] Fredrick Spivey Historical Social History [...] Date/Time Associated Diagnosis Comments RBC MORPHOLOGY Routine 01/29/2021 10:54 PM EST documented in this encounter Results * (ABNORMAL) Smear morphology (01/29/2021 10:54 PM EST) RBC Morphology Abnormal 01/30/2021 4:[address] Estimate Adequate Adequate 01/30/2021 4:47 AM EST Anisocytosis 1+(A) 01/30/2021 4:47 AM EST Poikilocytosis 1+(A) 01/30/2021 4:47 AM EST Ovalocytes 1+(A) 01/30/2021 4:47 AM EST Macrocytosis 1+(A) 01/30/2021 4:47 AM EST Blood 01/29/2021 10:5 4 PM EST 01/30/2021 4:04 AM EST Narrative [facility] - 01/30/2021 4:47 AM EST Ordered By Discern Expert Rule us Sleh Historical Provider LAB BLOOD ORDERABLES Fi nal Result Performing Organization Address City/State/[facility] Co de Phone Number [facility] [address] [place] [address] documented in this encounter Visit Diagnoses Not on filedocumented in this encounter
--- OUTSIDE RECORDS SUMMARY | 2024-02-15 23:04 | XMS_ITS | Encounter Summary ---
Author Organization [employer] In iatives Address [address] [place] [address] Care Team Providers Care Inlayer Name Role Phone Unavailable Primary Care Provider Unavailabl e Encounter Details Date Type Department Care Team (Late st Contact Info) Description 01/30/2021 Transcribed Document [facility] Family Medicine [facility] [place] [address] ProviderDick MD [address] [place] [address] Social History Tobacco Use Types [...] Conversion Note - Historical ProviderMD - 01/30/2021 10:[address] [facility] PT Charges Entered On: 01/30/2021 10:36 EST Performed On: 01/30/2021 10:34 EST by Shama Rose PLAY LEADER-PHYSICAL THERAPY [facility] PT Charges Physical Therapy Screen : 1 (Comment: PT has reviewed and agrees. [PRUDENCE AMARO, PT - 01/30/2021 11:44 EST] ) PRUDENCE AMARO PT - 01/30/2021 11:44 EST documented in this encounter Plan of Treatment Not on file documented as of this encounter Visit Diagnoses Not on filedocumented in this encounter
--- OUTSIDE RECORDS SUMMARY | 2024-02-15 23:04 | XMS_ITS | Encounter Summary ---
Author Organization [employer] In iatives Address [address] [place] [address] Care Team Providers Care Montessori Teacher Name Role Phone Unavailable Primary Care Provider Unavailabl e Encounter Details Date Type Department Care Team (Late st Contact Info) Description 01/30/2021 Historic Encounter [facility] [address] [place] [address] ProviderFredrick Historical Social History Tobacco Use [...] Procedure Name Priority Date/Time Associated Diagnosis Comments CORONAVIRUS 2018 NOVEL ([facility] BKR DATA CONV) Routine 01/30/2021 8:56 AM EST documented in this encounter Results * CORONAVIRUS 2019 NOVEL ([facility] BKR DATA CONV) (01/30/2021 8:56 AM EST) SARS-CoV-2 ([id number]) Negative Negative 01/30/2021 2:57 PM EST Comment: Testing was performed using RT-PCR methodology approved for use under FDA Emergency Use Authorization only. Negative results do not preclude infection with the SARS-CoV-2 virus and should not be used as the sole basis of a patient treatment or public health decisions. Negative results must be considered in the context of an individual's recent exposures, history, and presence of clinical signs/symptoms. Follow-up testing should be performed according to the current CDC recommendations. Performing Lab: [facility] Lab 3:00 PM [facility] Reason for Testing PUI Clinically Indicated 01/30/2021 1:51 PM [facility] First Test Yes 01/30/2021 1:51 PM [facility] Employed in Healthcare No 01/30/2021 1:51 PM [facility] Symptomatic as defined by CDC Yes 01/30/2021 1:51 PM [facility] Resident in congregate setting No 01/30/2021 1:51 PM [facility] No 01/30/2021 1:51 PM [facility] Hospitalized Yes 01/30/2021 1:51 PM [facility] ICU Yes 01/30/2021 1:51 PM [facility] 01/30/2021 8:56 AM EST 01/30/2021 2:05 PM EST us Sle Historical Provider BODY FLUIDS AND STOOLS ORDERABLES Final Result [facility] [address] [phone] documented in this encounter Visit Diagnoses Not on filedocumented in this encounter
--- OUTSIDE RECORDS SUMMARY | 2024-02-15 23:04 | XMS_ITS | Encounter Summary ---
Author Organization [email or web address] In [employer] Address [address] [place] [address] Care Team Providers Care Technical Information Specialist Name Role Phone Unavailable Primary Care Provider Unavailabl e Encounter Details Date Type Department Care Team (Late st Contact Info) Description 01/30/2021 Historic Encounter [address] [address] Fredrick Spivey Historical Social History [...] Procedure Name Priority Date/Time Associated Diagnosis Comments AMMONIA (NH3) Routine 01/30/2021 12:12 AM EST documented in this encounter Results * AMMONIA (NH3) (01/30/2021 12:12 AM EST) Ammonia Level 23.0 11.0 - 32.0 uMol/L 01/30/2021 6:06 AM EST Comment: [employer] has become aware of sulfasalazine and sulfapyridine [...] prior to administration of the drug. Blood 01/30/2021 12:1 2 AM EST 01/30/2021 5:30 AM EST Sle Historical Provider MICROBIOLOGY - GENERAL ORDERABLES Final Result Performing Organization Address City/State/[facility] Co de Phone Number [facility] [address] [phone] documented in this encounter Visit Diagnoses Not on filedocumented in this encounter
--- OUTSIDE RECORDS SUMMARY | 2024-02-15 23:04 | XMS_ITS | Encounter Summary ---
Author Organization [employer] In [employer]atives Address [address] [place] [address] Care Team Providers Care Tank Officer Name Role Phone Unavailable Primary Care Provider Unavailabl e Encounter Details Date Type Department Care Team (Late st Contact Info) Description 01/30/2021 Historic Encounter [facility] [address] [place] [address] Provider, [facility] [...] Procedure Name Priority Date/Time Associated Diagnosis Comments FREE T4 Routine 01/30/2021 10:53 AM EST documented in this encounter Results * (ABNORMAL) FREE T4 (01/30/2021 10:53 AM EST) FT4 1.69(H) 0.76 - 1.46 ng/dL 01/30/2021 4:26 PM EST Comment: Biotin supplements can cause clinically significant incorrect lab results. The FDA has seen an increase in the number of adverse events related to biotin interference with lab tests. Blood 01/30/2021 10:5 3 AM EST 01/30/2021 3:56 PM EST [facility] Historical Provider LAB BLOOD ORDERABLES Fi nal Result [facility] [address] [place], [place] [address] [phone] documented in this encounter Visit Diagnoses Not on filedocumented in this encounter
--- OUTSIDE RECORDS SUMMARY | 2024-02-15 23:04 | XMS_ITS | Encounter Summary ---
Author Organization [employer] [facility] Address [address] [place] [address] Care Team Providers Care Powder Mixer Name Role Phone Unavailable Primary Care Provider Unavailabl e Encounter Details Date Type Department Care Team (Late st Contact Info) Description 01/30/2021 Transcribed Document [facility] Family Medicine [facility] [place] [address] ProviderDick MD [address] [place] [address] Social History Tobacco Use Types [...] Conversion Note - Historical ProviderMD - 01/30/2021 9:11 AM KNOWLEDGE ARCHITECT [facility] Authorization Entered On: 01/30/2021 9:11 EST Performed On: 01/30/2021 9:11 EST by Rachell Castillo Rn-Utilization Review Primary Insurance Authorization Authorization and Policy Numbers : Insurance 1 Health Plan: MEDICARE Policy Number: [id number] Authorization Number: Insurance 2 Health Plan: MEDICAID QMB Policy Number: [id number] Authorization Number: Insurance Primary Name : MEDICARE Authorized Service Begin Date-Primary : 01/29/2021 EST Historical Authorization Comments-Primary : No Authorization Comments Found Rachell Castillo Rn-Utilization Review - 01/30/2021 9:11 EST Electronically signed by [facility] Conversion Hand Mold Maker Cerner at 06/22/2022 7:28 PM CDT documented in this encounter Plan of Treatment Not on file documented as of this encounter Visit Diagnoses Not on filedocumented in this encounter
--- OUTSIDE RECORDS SUMMARY | 2024-02-15 23:04 | XMS_ITS | Encounter Summary ---
Author Organization [employer] In iatives Address [address] [place] [address] Care Team Providers Care Biofuels Plant Construction Worker Name Role Phone Unavailable Primary Care Provider Unavailabl e Encounter Details Date Type Department Care Team (Late st Contact Info) Description 01/30/2021 Historic Encounter [address] [address] ProviderFredrick Historical Social History Tobacco [...] Associated Diagnosis Comments CMP COMPREHENSIVE METABOLIC PANEL ([facility] DATA CONV) Routine 01/30/2021 3:30 AM EST documented in this encounter Results * (ABNORMAL) CMP COMPREHENSIVE METABOLIC PANEL ([facility] BK DATA CONV) (01/30/2021 3:30 AM EST) Sodium Level 141 136 - 146 mmol/L 01/30/2021 9:10 AM EST Potassium Level 3.9 3.5 - 5.1 mmol/L 01/30/2021 9:10 AM EST Chloride Level 109 102 - 112 mmol/L 01/30/2021 9:10 AM EST Carbon Dioxide Level 22 21 - 32 mmol/L 01/30/2021 9:10 AM EST Anion Gap 14 9 - 20 01/30/2021 9:10 AM EST Calcium Level 8.3(L) 8.4 - 10.1 mg/dL 01/30/2021 9:10 AM EST Glucose Level 194(H) 74 - 106 mg/dL 01/30/2021 9:10 AM EST Comment: [email or web address] has become aware of sulfasalazine and sulfapyridine [...] Nitrogen 30(H) 7 - 22 mg/dL 01/30/2021 9:10 AM EST Creatinine Level 2.30(H) 0.55 - 1.02 mg/dL 01/30/2021 9:10 AM EST Bun/Creatinine 13.0 8.0 - 20.0 01/30/2021 9:10 AM EST Albumin Level 2.8(L) 3.4 - 5.0 Gram/dL 01/30/2021 9:10 AM EST Protein, Total 5.9(L) 6.4 - 8.2 Gram/dL 01/30/2021 9:10 AM EST A/G Ratio 0.9(L) 1.1 - 2.5 01/30/2021 9:10 AM EST Alk Phos 64 27 - 136 Units/Lit er 01/30/2021 9:10 AM EST ALT 11(L) 13 - 56 Units/Lit er 01/30/2021 9:10 AM EST Comment: [email or web address] has become aware of sulfasalazine and sulfapyridine [...] AST 21 5 - 37 Units/Lit er 01/30/2021 9:10 AM EST Comment: [email or web address] has become aware of sulfasalazine and sulfapyridine [...] to administration of the drug. Bilirubin, Total 0.6 0.2 - 1.2 mg/dL 01/30/2021 9:10 AM EST Comment: Total bilirubin results may be falsely elevated in patients undergoing treatment with eltrombopag (Promacta). Results should be correlated to clinical symptomology and additional laboratory testing including other markers for liver function, e.g., alanine aminotransferase, aspartate aminotransferase, alkaline phosphatase, and/or lactate dehydrogenase. Globulin 3.1 1.5 - 4.5 Gram/dL 01/30/2021 9:10 AM EST eGFR 25(L) >=60 mL/min/1. 73m2 01/30/2021 9:11 AM EST Comment: GFR <60 suggests chronic kidney disease, if found over 3 month period. GFR <15 indicates renal failure. eGFR NonAfrican 21(L) >=60 mL/min/1. 73m2 01/30/2021 9:11 AM EST Comment: GFR <60 suggests chronic kidney disease, if found over 3 month period. GFR <15 indicates renal failure. Blood 01/30/2021 3:30 AM EST 01/30/2021 8:53 AM EST [facility] Historical Provider LAB BLOOD ORDERABLES Fi nal Result [facility] [address] [phone] documented in this encounter Visit Diagnoses Not on filedocumented in this encounter
--- OUTSIDE RECORDS SUMMARY | 2024-02-15 23:04 | XMS_ITS | Encounter Summary ---
Author Organization [employer] In iatives Address [address] [place] [address] Care Team Providers Care Seismometer Operator Name Role Phone Unavailable Primary Care Provider Unavailabl e Encounter Details Date Type Department Care Team (Late st Contact Info) Description 01/30/2021 Historic Encounter [address] [address] ProviderFredrick Historical Social History Tobacco [...] Date/Time Associated Diagnosis Comments RBC MORPHOLOGY Routine 01/30/2021 12:12 AM EST documented in this encounter Results * (ABNORMAL) Smear morphology (01/30/2021 12:12 AM EST) RBC Morphology Abnormal 01/30/2021 6:[address] Estimate Adequate Adequate 01/30/2021 6:10 AM EST Anisocytosis 1+(A) 01/30/2021 6:10 AM EST Poikilocytosis 1+(A) 01/30/2021 6:10 AM EST Ovalocytes 1+(A) 01/30/2021 6:10 AM EST Macrocytosis 1+(A) 01/30/2021 6:10 AM EST Blood 01/30/2021 12:1 2 AM EST 01/30/2021 5:30 AM EST Sle Historical Provider LAB BLOOD ORDERABLES Fi nal Result [facility] [address] [phone] documented in this encounter Visit Diagnoses Not on filedocumented in this encounter
--- OUTSIDE RECORDS SUMMARY | 2024-02-15 23:04 | XMS_ITS | Encounter Summary ---
Author Organization [employer] Address [address] [place] [address] Care Team Providers Care Global Mobility Specialist Name Role Phone Unavailable Primary Care Provider Unavailabl e Encounter Details Date Type Department Care Team (Late st Contact Info) Description 01/29/2021 Historic Encounter [address] [address] Provider, Jessee Jennings MD Social [...] Procedure Name Priority Date/Time Associated Diagnosis Comments [facility] BASIC METABOLIC PANEL ([facility] BK DATA CONV) Routine 01/29/2021 10:54 PM EST documented in this encounter Results * (ABNORMAL) [facility] BASIC METABOLIC PANEL ([facility] BK DATA CONV) (01/29/2021 10:54 PM EST) Glucose Level 276(H) 74 - 106 mg/dL 01/30/2021 5:10 AM EST Comment: [employer] has become aware of sulfasalazine and sulfapyridine [...] Nitrogen 29(H) 7 - 22 mg/dL 01/30/2021 5:10 AM EST Creatinine Level 2.30(H) 0.55 - 1.02 mg/dL 01/30/2021 5:10 AM EST Sodium Level 141 136 - 146 mmol/L 01/30/2021 5:10 AM EST Potassium Level 2.8(AA) 3.5 - 5.1 mmol/L 01/30/2021 5:10 AM EST Comment: CALLED TO:WILLIE OROZCO DATE/TIME CALLED:01/30/2021 00:11:33 EST READ BACK AND VERIFIED:YES CALLED BY: Chloride Level 107 102 - 112 mmol/L 01/30/2021 5:10 AM EST Carbon Dioxide Level 21 21 - 32 mmol/L 01/30/2021 5:10 AM EST Anion Gap 16 9 - 20 01/30/2021 5:10 AM EST Calcium Level 9.0 8.4 - 10.1 mg/dL 01/30/2021 5:10 AM EST Bun/Creatinine 12.6 8.0 - 20.0 01/30/2021 5:10 AM EST eGFR NonAfrican 21(L) >=60 mL/min/1. 73m2 01/30/2021 5:12 AM EST Comment: GFR <60 suggests chronic kidney disease, if found over 3 month period. GFR <15 indicates renal failure. eGFR 25(L) >=60 mL/min/1. 73m2 01/30/2021 5:12 AM EST Comment: GFR <60 suggests chronic kidney disease, if found over 3 month period. GFR <15 indicates renal failure. Blood 01/29/2021 10:5 4 PM EST 01/30/2021 4:04 AM EST [facility] Historical Provider LAB BLOOD ORDERABLES Final Result [facility] [address] [place] [address], [facility] [phone] documented in this encounter Visit Diagnoses Not on filedocumented in this encounter
--- OUTSIDE RECORDS SUMMARY | 2024-02-15 23:04 | XMS_ITS | Encounter Summary ---
Author Organization [employer] In i[employer] Address [address] [place] [address] Care Team Providers Care Pai Gow Manager Name Role Phone Unavailable Primary Care Provider Unavailabl e Encounter Details Date Type Department Care Team (Late st Contact Info) Description 01/30/2021 Historic Encounter [address] [address] ProviderFredrick Historical Social History Tobacco [...] Procedure Name Priority Date/Time Associated Diagnosis Comments VIRAL CULTURE, REFLEXIVE, SENDOUT ([facility] DATA CONV) Routine 01/30/2021 10:46 AM EST documented in this encounter Results * VIRAL CULTURE, REFLEXIVE, SENDOUT ([facility] DATA CONV) (01/30/2021 10:46 AM EST) Specimen Source RLL 3:46 PM EST Micro Comments sero sang 01/30/2021 3:46 PM EST Viral Culture, Reflexive No virus isolated. 02/10/2021 1:08 PM EST Comment: Performed At: [facility] [id number] Lv Dobson MD Ph:[phone] BAL 01/30/2021 10:4 6 AM EST 01/31/2021 1:25 PM EST Narrative [facility] - 02/10/2021 1:08 PM EST bronchial lavage us Sle Historical Provider BODY FLUIDS AND STOOLS ORDERABLES Final Result [facility] [address] [phone] documented in this encounter Visit Diagnoses Not on filedocumented in this encounter
--- OUTSIDE RECORDS SUMMARY | 2024-02-15 23:04 | XMS_ITS | Encounter Summary ---
Author Organization [employer] In [employer] Address [address] [place] [address] Care Team Providers Care Credit Checker Name Role Phone Unavailable Primary Care Provider Unavailabl e Encounter Details Date Type Department Care Team (Late st Contact Info) Description 01/29/2021 Historic Encounter [address] [address] Provider, Jessee Jennings MD Social [...] Procedure Name Priority Date/Time Associated Diagnosis Comments TROPONIN I ULTRA ([facility] DATA CONV) Routine 01/29/2021 10:54 PM EST documented in this encounter Results * (ABNORMAL) TROPONIN I ULTRA ([facility] DATA CONV) (01/29/2021 10:54 PM EST) TroponinI Ultra 0.771(AA) 0.015 - 0.045 ng/mL 01/30/2021 5:10 AM EST Comment: CALLED TO:WILLIE OROZCO DATE/TIME CALLED:01/30/2021 00:11:33 EST READ BACK AND VERIFIED:YES CALLED BY: Clay Result (ng/ml) ?* Interpretation 0.015 ? 0.045 ?* ??Normal; less than 99th percentile of normal range >0.045 ? * Abnormal; greater than 99th percentile of normal range. ?? Test precision at 0.045 ng/ml is less than 10% Coefficient of Variation. Biotin supplements can cause clinically significant incorrect lab results. The FDA has seen an increase in the number of adverse events related to biotin interference with lab tests. Blood 01/29/2021 10:5 4 PM EST 01/30/2021 4:04 AM EST [facility] Historical Provider LAB BLOOD ORDERABLES Final Result [facility] [address] [phone] documented in this encounter Visit Diagnoses Not on filedocumented in this encounter
--- OUTSIDE RECORDS SUMMARY | 2024-02-15 23:04 | XMS_ITS | Encounter Summary ---
Author Organization [employer] In [employer] Address [address] [place] [address] Care Team Providers Care Supervisor Pig Machine Name Role Phone Unavailable Primary Care Provider Unavailabl e Encounter Details Date Type Department Care Team (Late st Contact Info) Description 01/29/2021 Historic Encounter [address] [address] ProviderFredrick Historical Social History Tobacco [...] Associated Diagnosis Comments CBC W/ AUTO DIFF ([facility] DATA CONV) Routine 01/29/2021 10:54 PM EST documented in this encounter Results * (ABNORMAL) CBC W/ AUTO DIFF ([facility] BKR DATA CONV) (01/29/2021 10:54 PM EST) WBC 9.7 4.5 - 10.5 K/uL 01/30/2021 4:06 AM EST RBC 3.70(L) 3.93 - 5.22 Million/u L 01/30/2021 4:06 AM EST Hgb 11.7 11.2 - 15.7 g/dL 01/30/2021 4:06 AM EST Hct 35.3 34.1 - 44.9 % 01/30/2021 4:06 AM EST MCV 95.4(H) 79.0 - 94.8 fL 01/30/2021 4:06 AM EST MCH 31.6 25.6 - 32.2 pg 01/30/2021 4:06 AM EST MCHC 33.1 32.2 - 36.5 Gram/dL 01/30/2021 4:06 AM EST RDW 15.5(H) 11.7 - 14.9 % 01/30/2021 4:06 AM EST Platelet Count 290 163 - 369 K/uL 01/30/2021 4:06 AM EST MPV 10.1 9.4 - 12.4 fL 01/30/2021 4:06 AM EST Slide Review Technologist 01/30/2021 4:47 AM EST nRBC 0.020(H) 0.000 - 0.012 01/30/2021 4:47 AM EST Blood 01/29/2021 10:5 4 PM EST 01/30/2021 4:04 AM EST us Sle Historical Provider LAB BLOOD ORDERABLES Fi nal Result [facility] [address] [phone] documented in this encounter Visit Diagnoses Not on filedocumented in this encounter
--- OUTSIDE RECORDS SUMMARY | 2024-02-15 23:04 | XMS_ITS | Encounter Summary ---
Author Organization [employer] In [employer] Address [address] [place] [address] Care Team Providers Care Final Inspector Truck Trailer Name Role Phone Unavailable Primary Care Provider Unavailabl e Encounter Details Date Type Department Care Team (Late st Contact Info) Description 01/29/2021 Historic Encounter [facility] [address] [place] [address] Provider, [facility] Historical Social History Tobacco Use Types [...] Procedure Name Priority Date/Time Associated Diagnosis Comments PT/INR PROTHROMBIN TIME ([facility] DATA CONV) Routine 01/29/2021 10:54 PM EST documented in this encounter Results * (ABNORMAL) PT/INR PROTHROMBIN TIME ([facility] BKR DATA CONV) (01/29/2021 10:54 PM EST) PT 12.5(H) 9.2 - 12.0 Second(s) 01/30/2021 4:17 AM EST INR 1.2 0.9 - 1.2 01/30/2021 4:17 AM EST Blood 01/29/2021 10:5 4 PM EST 01/30/2021 4:04 AM EST us [facility] Historical Provider LAB BLOOD ORDERABLES Fi nal Result [facility] 1 [place] [address], [facility] [phone] documented in this encounter Visit Diagnoses Not on filedocumented in this encounter
--- OUTSIDE RECORDS SUMMARY | 2024-02-15 23:04 | XMS_ITS | Encounter Summary ---
Author Organization [employer] In [employer] Address [address] [place] [address] Care Team Providers Care Inside Sales Supervisor Name Role Phone Unavailable Primary Care Provider Unavailabl e Encounter Details Date Type Department Care Team (Late st Contact Info) Description 01/30/2021 Historic Encounter [address] [address] Provider, [facility] Historical Social History Tobacco Use [...] Date/Time Associated Diagnosis Comments GLUCOSE-POC Routine 01/30/2021 11:42 AM EST documented in this encounter Results * (ABNORMAL) Glucose, Point of Care (01/30/2021 11:42 AM EST) Glucose POC2 204(H) 70 - 110 mg/dL 01/30/2021 4:42 PM EST [facility] Supervisor Lithar[employer] [phone] 01/30/2021 4:42 PM EST [facility] Device SN [id number] 01/30/2021 4:42 PM EST [facility] Device Comment1 Notified Nurse RBV 01/30/2021 4:42 PM EST [facility] Blood 01/30/2021 11:4 2 AM EST 01/30/2021 4:44 PM EST [facility] Historical Provider POINT OF CARE TEST ORDE MAGNOLIA Final Result [facility] [address] [phone] documented in this encounter Visit Diagnoses Not on filedocumented in this encounter
--- OUTSIDE RECORDS SUMMARY | 2024-02-15 23:04 | XMS_ITS | Encounter Summary ---
Author Organization [employer] Address [address] [place] [address] Care Team Providers Care Die Set Up Worker Name Role Phone Unavailable Primary Care Provider Unavailabl e Encounter Details Date Type Department Care Team (Late st Contact Info) Description 01/29/2021 Transcribed Document [facility] [place] [address] ProviderDick MD [facility] [place] [address] Social History Tobacco Use Types [...] Conversion Note - Historical ProviderMD - 01/29/2021 11:19 PM NUISANCE ANIMAL DAMAGE CONTROL AGENT Consult Phone Call Documentation Entered On: 01/30/2021 8:44 EST Performed On: 01/29/2021 23:19 EST by Arianna Jenkins [facility] Coord Phone Call for Consults Consult Phone Call/Page Attempt : First call Consult Reason : post cardiac arrest unresponsive Physician Requesting Consult : JAYMIE PAGAN MD-INT Physician Requested for Consult : MENDEZ ATKINS MD-SHANE Provider Service Notified Name : Neurology Consult, Additional Information : called and left voicemail with physician Arianna Jenkins, [facility] Coord - 01/30/2021 8:43 EST Electronically signed by [facility] Conversion Facs Teacher Cerner at 06/22/2022 7:15 PM CDT documented in this encounter Plan of Treatment Not on file documented as of this encounter Visit Diagnoses Not on filedocumented in this encounter
--- OUTSIDE RECORDS SUMMARY | 2024-02-15 23:04 | XMS_ITS | Encounter Summary ---
Author Organization [employer] Address [address] [place] [address] Care Team Providers Care Intelligent Systems Engineer Name Role Phone Unavailable Primary Care Provider Unavailabl e Encounter Details Date Type Department Care Team (Late st Contact Info) Description 01/29/2021 Historic Encounter [address] [address] ProviderFredrick Historical Social History Tobacco [...] Priority Date/Time Associated Diagnosis Comments AUTOMATED DIFFERENTIAL [facility]) Routine 01/29/2021 10:54 PM EST documented in this encounter Results * (ABNORMAL) AUTOMATED DIFFERENTIAL ([facility] BKR DATA CONV) (01/29/2021 10:54 PM EST) Neut% 79.3(H) 34.0 - 71.0 % 01/30/2021 4:47 AM EST Lymph% 13.1(L) 19.3 - 53.1 % 01/30/2021 4:47 AM EST Hidalgo% 6.7 3.0 - 9.0 % 01/30/2021 4:47 AM EST Eos% 0.2 0.0 - 7.0 % 01/30/2021 4:47 AM EST Baso% 0.3 0.0 - 1.5 % 01/30/2021 4:47 AM EST IG% 0.40 0.00 - 0.60 % 01/30/2021 4:47 AM EST Neut# 7.72(H) 1.56 - 6.13 K/uL 01/30/2021 4:47 AM EST Lymph# 1.27 1.00 - 3.90 x10(3)/uL 01/30/2021 4:47 AM EST Hidalgo# 0.65 0.16 - 1.00 K/uL 01/30/2021 4:47 AM EST Eos# 0.02 0.00 - 0.80 x10(3)/uL 01/30/2021 4:47 AM EST Baso# 0.03 0.00 - 0.20 x10(3)/uL 01/30/2021 4:47 AM EST IG# 0.04 0.00 - 0.05 x10(3)/uL 01/30/2021 4:47 AM EST Blood 01/29/2021 10:5 4 PM EST 01/30/2021 4:04 AM EST Narrative [facility] - 01/30/2021 4:47 AM EST Added by Discern Expert us Sle Historical Provider LAB BLOOD ORDERABLES Fi nal Result [facility] 1 [place] [address], [facility] [phone] documented in this encounter Visit Diagnoses Not on filedocumented in this encounter
--- OUTSIDE RECORDS SUMMARY | 2024-02-15 23:04 | XMS_ITS | Encounter Summary ---
Author Organization [employer] Address [address] [place] [address] Care Team Providers Care Phlebotomy Services Technician Name Role Phone Unavailable Primary Care Provider Unavailabl e Encounter Details Date Type Department Care Team (Late st Contact Info) Description 01/29/2021 Transcribed Document [facility] Pulm & Critical Care Medicine [address] [place] [address] [address] [place] [address] Leti Varela MD [address] [facility] [address] [place] [address] Social History Tobacco Use Types [...] Note - Leti Varela MD - 01/29/2021 10:00 PM EST Patient: CISCO CAZARES Age: 75 years Sex: Female : 1945 Associated Diagnoses: None Author: VALENTINA BURNS PA-C Procedure Central line insertion procedure Date/ Time: 01/31/2021 21:00:00. Confirmed: patient, procedure, side, site, safety procedures followed. Performed by: self. Informed consent: signed by family. Indication: Acute resp failure, Shock. Preparation: sterile preparation of site (in usual fashion, with 2% chlorhexidine gluconate, draped to expose affected area, with full drapes, gown, gloves and mask), vessel was identified (by palpation, ultrasound guided), position (head turned to left, supine). Anesthesia: 2% xylocaine. Sedation: none. Technique: ultrasound localization used, non-tunneled, location (right, internal jugular vein, 1 attempts), central approach used, catheter type (7 Fr, 3 lumen catheter), location confirmed via flashback, catheter flushed with saline, total catheter length 16 cm, dressing applied (catheter secured, semi-permeable transparent dressing applied), monitoring during procedure (blood pressure, cardiac, continuous pulse oximetry). Procedure tolerated: well, estimated blood loss 0 ml. Findings: location confirmed on chest x-ray, catheter tip located in the superior vena cava. Complications at the time of procedure: none. documented in this encounter Plan of Treatment Not on file documented as of this encounter Visit Diagnoses Not on filedocumented in this encounter
--- OUTSIDE RECORDS SUMMARY | 2024-02-15 23:04 | XMS_ITS | Encounter Summary ---
Author Organization [employer] Address [address] [place] [address] Care Team Providers Care Provider Service Representative Name Role Phone Unavailable Primary Care Provider Unavailabl e Encounter Details Date Type Department Care Team (Late st Contact Info) Description 01/29/2021 Historic Encounter [facility] [address] [place] [address] Provider, [facility] Historical Social History Tobacco Use Types [...] Procedure Name Priority Date/Time Associated Diagnosis Comments TSH Routine 01/29/2021 10:54 PM EST documented in this encounter Results * TSH (01/29/2021 10:54 PM EST) TSH 1.910 0.358 - 3.740 mcInt Units/mL 01/30/2021 5:12 AM EST Comment: Biotin supplements can cause clinically significant incorrect lab results. The FDA has seen an increase in the number of adverse events related to biotin interference with lab tests. Blood 01/29/2021 10:5 4 PM EST 01/30/2021 4:04 AM EST [facility] Historical Provider LAB BLOOD ORDERABLES Fi nal Result [facility] 1 [place], [place] [address] [phone] documented in this encounter Visit Diagnoses Not on filedocumented in this encounter
--- OUTSIDE RECORDS SUMMARY | 2024-02-15 23:04 | XMS_ITS | Encounter Summary ---
Author Organization [employer] Address [address] [place] [address] Care Team Providers Care Forest Fire Management Officer Name Role Phone Unavailable Primary Care Provider Unavailabl e Encounter Details Date Type Department Care Team (Late st Contact Info) Description 01/30/2021 Transcribed Document [facility] Family Medicine [facility], [facility] [place] [address] ProviderDick MD [address] [place] [address] Social History Tobacco Use Types [...] Conversion Note - Historical ProviderMD - 01/30/2021 8:[address] [facility] OT Charges Entered On: 01/30/2021 8:05 EST Performed On: 01/30/2021 8:04 EST by BENJAMÍN MEMBRENO OTR/Dieter Roa OT Charges Screen For Airconditioning Engineer : 1 BENJAMÍN MEMBRENO OTR/Dieter - 01/30/2021 8:04 EST Electronically signed by Jessee Jj Conversion Electronic Pagination System Operator Cerner at 06/22/2022 7:39 PM CDT documented in this encounter Plan of Treatment Not on file documented as of this encounter Visit Diagnoses Not on filedocumented in this encounter
--- OUTSIDE RECORDS SUMMARY | 2024-02-15 23:04 | XMS_ITS | Encounter Summary ---
Author Organization [employer] Address [address] [place] [address] Care Team Providers Care Air Chipper Name Role Phone Unavailable Primary Care Provider Unavailabl e Encounter Details Date Type Department Care Team (Late st Contact Info) Description 01/29/2021 Historic Encounter [facility] [address] [place] [address] Provider, [facility] Historical Social History Tobacco Use Types [...] Priority Date/Time Associated Diagnosis Comments MAGNESIUM LEVEL ([facility] DATA CONV) Routine 01/29/2021 10:54 PM EST documented in this encounter Results * MAGNESIUM LEVEL ([facility] DATA CONV) (01/29/2021 10:54 PM EST) Magnesium Level 1.5 1.5 - 2.4 mg/dL 01/30/2021 5:12 AM EST Blood 01/29/2021 10:5 4 PM EST 01/30/2021 4:04 AM EST [facility] Historical Provider LAB BLOOD ORDERABLES Fi nal Result [facility] 1 [place], [place] [address] [phone] documented in this encounter Visit Diagnoses Not on filedocumented in this encounter
--- OUTSIDE RECORDS SUMMARY | 2024-02-15 23:04 | XMS_ITS | Encounter Summary ---
Author Organization [employer] Address [address] [place] [address] Care Team Providers Care Fabric And Accessories Estimator Name Role Phone Unavailable Primary Care Provider Unavailabl e Encounter Details Date Type Department Care Team (Late st Contact Info) Description 01/30/2021 Historic Encounter [facility] [address] [place] [address] Provider, [facility] Historical Social History Tobacco Use [...] Date/Time Associated Diagnosis Comments LACTIC ACID LEVEL ([facility] DATA CONV) Routine 01/30/2021 9:38 AM EST documented in this encounter Results * LACTIC ACID LEVEL ([facility] DATA CONV) (01/30/2021 9:38 AM EST) Lactic Acid Level 1.7 0.4 - 2.0 mmol/L 01/30/2021 3:08 PM EST Blood 01/30/2021 9:38 AM EST 01/30/2021 2:47 PM EST [facility] Historical Provider LAB BLOOD ORDERABLES Fi nal Result [facility] 1 [place], [place] [address] [phone] documented in this encounter Visit Diagnoses Not on filedocumented in this encounter
--- OUTSIDE RECORDS SUMMARY | 2024-02-15 23:04 | XMS_ITS | Encounter Summary ---
Author Organization [employer] Address [address] [place] [address] Care Team Providers Care Process Artist Name Role Phone Unavailable Primary Care Provider Unavailabl e Encounter Details Date Type Department Care Team (Late st Contact Info) Description 01/29/2021 Historic Encounter [address] [address] Provider, genaro Jennings MD Social [...] Comments LACTIC ACID LEVEL ([facility] DATA CONV) Routine 01/29/2021 10:54 PM EST documented in this encounter Results * (ABNORMAL) LACTIC ACID LEVEL ([facility] BK DATA CONV) (01/29/2021 10:54 PM EST) Lactic Acid Level 5.0(AA) 0.4 - 2.0 mmol/L 01/30/2021 4:37 AM EST Comment: CALLED TO:MARILU RIOS DATE/TIME CALLED:01/29/2021 23:43:36 EST READ BACK AND VERIFIED:YES CALLED BY: Blood 01/29/2021 10:5 4 PM EST 01/30/2021 4:04 AM EST [facility] Historical Provider LAB BLOOD ORDERABLES Final Result [facility] [address] [phone] documented in this encounter Visit Diagnoses Not on filedocumented in this encounter
--- OUTSIDE RECORDS SUMMARY | 2024-02-15 23:04 | XMS_ITS | Encounter Summary ---
Author Organization [employer] Address [address] [place] [address] Care Team Providers Care Cad Programmer Name Role Phone Unavailable Primary Care Provider Unavailabl e Encounter Details Date Type Department Care Team (Late st Contact Info) Description 01/30/2021 Transcribed Document [facility] [place] [facility] [place] [address] ProviderDick MD [address] [place] [address] Social History Tobacco Use Types [...] - Historical ProviderMD - 01/30/2021 10:34 AM WELL SITE DRILLING ENGINEER Therapy Screen, PT Entered On: 01/30/2021 10:35 EST Performed On: 01/30/2021 10:34 EST by Shama Rose RESPIRATORY THERAPIST ASSISTANT-PHYSICAL THERAPY Therapy Screen, PT Medical Chart Reviewed : Yes Person Providing Information : Nurse Shama Rose, RESPIRATORY THERAPIST ASSISTANT-PHYSICAL THERAPY - 01/30/2021 10:34 EST Additional Therapy Screen Comment : Pt is currently intubated and sedated. PT will require reorders when medically appropriate. PT has reviewed and agrees. PRUDENCE AMARO, PT - 01/30/2021 11:43 EST Electronically signed by Parviz [facility] Conversion Telephonic Nurse Case Manager Cerner at 06/22/2022 7:28 PM CDT documented in this encounter Plan of Treatment Not on file documented as of this encounter Visit Diagnoses Not on filedocumented in this encounter
--- OUTSIDE RECORDS SUMMARY | 2024-02-15 23:04 | XMS_ITS | Encounter Summary ---
Author Organization [employer] Address [address] [place] [address] Care Team Providers Care Frame Catcher Name Role Phone Unavailable Primary Care Provider Unavailabl e Encounter Details Date Type Department Care Team (Late st Contact Info) Description 01/29/2021 Historic Encounter [facility] [address] [place] [address] Provider, [facility] [...] Name Priority Date/Time Associated Diagnosis Comments PROCALCITONIN ([facility] BK DATA CONV Routine 01/29/2021 10:54 PM EST documented in this encounter Results * (ABNORMAL) PROCALCITONIN ([facility] BKR DATA CONV (01/29/2021 10:54 PM EST) Procalcitonin 8.38(H) 0.00 - 2.00 ng/mL 01/30/2021 7:10 AM EST Blood 01/29/2021 10:5 4 PM EST 01/30/2021 4:04 AM EST [facility] Historical Provider LAB BLOOD ORDERABLES Fi nal Result [facility] [address] [place], [place] [address] [phone] documented in this encounter Visit Diagnoses Not on filedocumented in this encounter
--- OUTSIDE RECORDS SUMMARY | 2024-02-15 23:04 | XMS_ITS | Encounter Summary ---
Author Organization [employer] Address [address] [place] [address] Care Team Providers Care Kraft Digester Operator Name Role Phone Unavailable Primary Care Provider Unavailabl e Encounter Details Date Type Department Care Team (Late st Contact Info) Description 01/30/2021 Historic Encounter [address] [address] ProviderFredrick Historical Social History Tobacco [...] Associated Diagnosis Comments CBC W/ AUTO DIFF ([facility] DATA CONV) Routine 01/30/2021 12:12 AM EST documented in this encounter Results * (ABNORMAL) CBC W/ AUTO DIFF ([facility] BKR DATA CONV) (01/30/2021 12:12 AM EST) WBC 7.8 4.5 - 10.5 K/uL 01/30/2021 5:38 AM EST RBC 3.52(L) 3.93 - 5.22 Million/u L 01/30/2021 5:38 AM EST Hgb 10.9(L) 11.2 - 15.7 g/dL 01/30/2021 5:38 AM EST Hct 33.4(L) 34.1 - 44.9 % 01/30/2021 5:38 AM EST MCV 94.9(H) 79.0 - 94.8 fL 01/30/2021 5:38 AM EST MCH 31.0 25.6 - 32.2 pg 01/30/2021 5:38 AM EST MCHC 32.6 32.2 - 36.5 Gram/dL 01/30/2021 5:38 AM EST RDW 15.5(H) 11.7 - 14.9 % 01/30/2021 5:38 AM EST Platelet Count 262 163 - 369 K/uL 01/30/2021 5:38 AM EST MPV 10.5 9.4 - 12.4 fL 01/30/2021 5:38 AM EST Slide Review Technologist 01/30/2021 6:05 AM EST nRBC 0.020(H) 0.000 - 0.012 01/30/2021 5:38 AM EST Blood 01/30/2021 12:1 2 AM EST 01/30/2021 5:30 AM EST Sle Historical Provider LAB BLOOD ORDERABLES Fi nal Result [facility] [address] [phone] documented in this encounter Visit Diagnoses Not on filedocumented in this encounter
--- OUTSIDE RECORDS SUMMARY | 2024-02-15 23:04 | XMS_ITS | Encounter Summary ---
Author Organization [employer] Address [address] [place] [address] Care Team Providers Care Supplies Packer Name Role Phone Unavailable Primary Care Provider Unavailabl e Encounter Details Date Type Department Care Team (Late st Contact Info) Description 01/30/2021 Transcribed Document [facility] [place] [address] [place] [address] ProviderDick MD [address] [place] [address] Social History Tobacco Use Types [...] Cerner Conversion Note - Historical Provider, - 01/30/2021 8:04 AM SWABBER Therapy Screen, OT Entered On: 01/30/2021 8:05 EST Performed On: 01/30/2021 8:04 EST by BENJAMÍN MEMBRENO OTR/Dieter Therapy Screen, OT Medical Chart Reviewed : Yes Screen Completed : Yes Additional Therapy Screen Comment : Order placed as part of admission powerplan. Pt admitted after cardiac arrest, sedated on vent. Will await reorder from when medically appropriate . BENJAMÍN MEMBRENO OTR/L - 01/30/2021 8:04 EST documented in this encounter Plan of Treatment Not on file documented as of this encounter Visit Diagnoses Not on filedocumented in this encounter
--- OUTSIDE RECORDS SUMMARY | 2024-02-15 23:04 | XMS_ITS | Encounter Summary ---
Author Organization [employer] Address [address] [place] [address] Care Team Providers Care Preflight Mechanic Name Role Phone Unavailable Primary Care Provider Unavailabl e Encounter Details Date Type Department Care Team (Late st Contact Info) Description 01/30/2021 Historic Encounter [address] [address] Fredrick Spivey Historical Social History [...] Procedure Name Priority Date/Time Associated Diagnosis Comments DIFFERENTIAL, BODY FLUID Routine 01/30/2021 10:46 AM EST documented in this encounter Results * (ABNORMAL) DIFFERENTIAL, BODY FLUID (01/30/2021 10:46 AM EST) Neutrophils Body Fluid 95(H) 0 - 25 % 01/30/2021 8:27 PM EST [facility] Body Fluid 3(H) 0 - 0 % 8:27 PM EST Monocytes Body Fluid 2 0 - 65 % 01/30/2021 8:27 PM EST Path Review BF? Yes 8:27 PM EST 01/30/2021 10:4 6 AM EST 01/30/2021 7:15 PM EST Narrative [facility] - 01/30/2021 8:27 PM EST Ordered by Discern Expert us Sle Historical Provider BODY FLUIDS AND STOOLS ORDERABLES Final Result [facility] [address] [phone] documented in this encounter Visit Diagnoses Not on filedocumented in this encounter
--- OUTSIDE RECORDS SUMMARY | 2024-02-15 23:04 | XMS_ITS | Encounter Summary ---
Author Organization [employer] Address [address] [place] [address] Care Team Providers Care Correctional Supervisor Lieutenant Name Role Phone Unavailable Primary Care Provider Unavailabl e Encounter Details Date Type Department Care Team (Late st Contact Info) Description 01/30/2021 Transcribed Document [facility] Pulm & Critical Care Medicine [address] [place] [address] [address] [place] [address] Bianka Birmingham MD [address] [facility] [address] [place] [address] Social History Tobacco Use Types Packs/Day Years Used Date Smoking Tobacco: Never Assessed Comments Unknown Sex and Gender Information Value Date Recorded Sex Assigned at Female 09/02/2021 8:59 PM CDT Legal Sex Female 8:59 PM CDT Gender Identity Female 09/02/2021 8:59 PM CDT Sexual Orientation Not on file documented as of this encounter Miscellaneous Notes * Cerner Conversion Note - Bianka Birmingahm MD - 01/30/2021 2:51 PM EST Patient: CISCO CAZARES Age: 75 years Sex: Female : 1945 Associated Diagnoses: None Author: BIANKA BIRMINGHAM MD Procedure Bronchoscopy procedure Date/ Time: 01/30/2021 10:30:00. Confirmed: patient, procedure, side, site, safety procedures followed. Performed by: BIANKA BIRMINGHAM MD, knockdown man. Informed consent: not signed by patient. Indication: abnormal chest x-ray, pneumonia, worsening condition. Preparation: NPO, pre-medications given (moderate sedation, asa III, propofol 70 mg IV x 1 ), pre-oxygenation 1 %. Technique: type of bronchoscope flexible, route endotracheal tube, monitoring during procedure (blood pressure monitoring, quality assurance monitor final, continuous pulse oximetry). Findings: procedure done with RT - trachea : moderate mucopurulent thick secretions noted with moderate erythema, and edema - Rt bronchial tree: *no gross endo bronchial lesions noted CELINE: patent with secretions RIB : patent with secretions RUL: patent segs and sub segs, no secretions, no erythema RML: patent segs and sub segsmoderate mucopurulent thick secretions noted with moderate erythema, and edema RLL: patent segs and sub segs moderate mucopurulent thick secretions noted with moderate erythema, and edema Lt bronchial tree: *no gross endo bronchial lesions, patent LMS MARYCRUZ: patent segs and sub segs, no secretions, no erythema lingula: patent segs and sub segs, no secretions, no erythema LLL: moderate mucopurulent thick secretions noted with moderate erythema, and edema s/p therapeutic aspiration of secretions using 5 cc NS flushes for washings specimens: - BAL RLL 50 cc NS given with a return of 25 cc mucopurulent fluid. Procedure tolerated: well. Complications: none. post op dx: - severe bronchitis / pneumonia . documented in this encounter Plan of Treatment Not on file documented as of this encounter Visit Diagnoses Not on filedocumented in this encounter
--- OUTSIDE RECORDS SUMMARY | 2024-02-15 23:04 | XMS_ITS | Encounter Summary ---
Author Organization [employer] Address [address] [place] [address] Care Team Providers Care Corrections Lieutenant Name Role Phone Unavailable Primary Care Provider Unavailabl e Encounter Details Date Type Department Care Team (Late st Contact Info) Description 01/30/2021 Historic Encounter [facility] [address] [place] [address] Provider, [facility] Historical Social History Tobacco Use [...] Priority Date/Time Associated Diagnosis Comments CALCIUM IONIZED ([facility] DATA CONV) Routine 01/30/2021 12:12 AM EST documented in this encounter Results * (ABNORMAL) CALCIUM IONIZED ([facility] BK DATA CONV) (01/30/2021 12:12 AM EST) Calcium Ionized 1.09(L) 1.12 - 1.32 mmol/L 01/30/2021 6:[address] [facility] Blood 01/30/2021 12:1 2 AM EST 01/30/2021 5:30 AM EST us [facility] Historical Provider LAB BLOOD ORDERABLES Fi nal Result [facility] 1 [place], [place] [address] [phone] documented in this encounter Visit Diagnoses Not on filedocumented in this encounter
--- OUTSIDE RECORDS SUMMARY | 2024-02-15 23:04 | XMS_ITS | Encounter Summary ---
Author Organization [employer] Address [address] [place] [address] Care Team Providers Care Client Services Director Name Role Phone Unavailable Primary Care Provider Unavailabl e Encounter Details Date Type Department Care Team (Late st Contact Info) Description 01/30/2021 Historic Encounter [facility] [address] [place] [address] Provider, [place] Historical Social History Tobacco [...] Procedure Name Priority Date/Time Associated Diagnosis Comments SPUTUM CULTURE Routine 01/30/2021 3:30 AM EST documented in this encounter Results * SPUTUM CULTURE (01/30/2021 3:30 AM EST) Final Light respiratory georgina isolated No Staph aureus or MRSA isolated. Pre Light respiratory georgina isolated GS <25 Epithelial cells/LPF >25 WBC/LPF Rare Gram Positive Cocci in pairs 01/30/2021 3:30 AM EST 01/30/2021 8:54 AM EST [facility] Historical Provider PATHOLOGY/CYTOLOGY BRANDYE MAGNOLIA Final Result [facility] [address] [place], [place] [address] [phone] documented in this encounter Visit Diagnoses Not on filedocumented in this encounter
--- OUTSIDE RECORDS SUMMARY | 2024-02-15 23:04 | XMS_ITS | Encounter Summary ---
Author Organization [email or web address] Address [address] [place] [address] Care Team Providers Care Ui Ux Developer Name Role Phone Unavailable Primary Care Provider Unavailabl e Encounter Details Date Type Department Care Team (Late st Contact Info) Description 01/30/2021 Transcribed Document [facility] [place] [facility] [address] ProviderDick MD [address] [place] [address] Social History Tobacco Use Types Packs/Day [...] Conversion Note - Historical ProviderMD - 01/30/2021 8:58 AM DEMOLITION WORKER Patient: CISCO CAZARES Age: 75 years Sex: Female : 1945 Associated Diagnoses: None Author: LUIS THURMAN MD-CAR Chief Complaint Post cardiac arrest History of Present Illness Patient is intubated and sedated. Information in consult note obtained through medical records and nurse report. 75-year-old female with a past medical history of hypertension, hyperlipidemia, and diabetes. According to the patient records she underwent a stress test at an outside facility. After being laid prone she began complaining of shortness of breath and eventually became unresponsive. She was found to have PEA arrest. CPR/ACLS was initiated. Initial rhythm after ROSC was atrial fibrillation. She continued to have ineffective respirations and underwent emergent intubation. She was transferred to [facility] for higher level of care. Cardiology has been consulted to assist in management of patient care. Review of Systems Unable to obtain Health Status Allergies (1) Active Reaction No Known Allergies None Documented Home Medications (10) Active amLODIPine 2.5 mg [...] 15 g/60 mL oral and rectal suspension Allergies: Allergic Reactions (Selected) No Known Allergies, [...] IV Push, Q15Min, PRN: Other (See Comment) Lovenox: 30 mg, SubCutaneous, [id number] MiraLax: 17 Gram, Oral, Daily, PRN: Constipation [...] mg, 300 mL, 300 mL/Hr, IV Piggyback, [id number] dexmedeTOMIDine injection 400 mcg + NaCl 0.9% for drip 100 mL: TITRATE, IntraVENous doxycycline + Sodium Chloride 0.9% intravenous solution 100 mL: 100 mg, 50 mL/Hr, IV Piggyback, [id number] fentaNYL injection 2,000 mcg + Dextrose 5% [...] oral and rectal suspension: 0 Refill(s), Medications (25) Active Scheduled: (10) #NaCl 0.9% *FLUSH* inj 10 mL 10 mL, IV Push, Q12H doxycycline hyclate + NaCl 0.9% 100 mL 100 mg, IV Piggyback, M51TCcp enoxaparin 30 mg/0.3 ml inj 30 mg 0.3 mL, SubCutaneous, S94MKwy famotidine 20 mg/2 mL inj 20 mg 2 mL, IV Push, Q12H fludrocortisone 0.1 mg tab 0.1 mg 1 Tab, Oral, Daily insulin regular 1 unit/0.01 mL inj 3mL Scale B, SubCutaneous, Q6H levothyroxine 100 mcg tab 100 mcg 1 Tab, Oral, Daily linezolid *PREMIX* 600 mg 300 mL, IV Piggyback, Z19PKpo methylPREDNISolone SUCCinate 40 mg inj 40 mg, [...] Gram 1 Packet, Oral, Daily Problem list: No problem items selected or recorded., No qualifying data available Histories No education data available. Social & Psychosocial Habits No Data Available Past Medical History: Active Hypertension ([id number]), Diabetes mellitus type 2 Hypertension Family History: Unable to obtain. Procedure history: Cardiac catheterization Colonoscopy Colostomy Hysterectomy Thyroidectomy Social History Social & Psychosocial Habits No Data Available . Physical Examination VS/Measurements Vitals Signs (last 24 hrs) Last Charted Minimum Maximum Temp H 99.9 (JAN 30 08:00) L 91.9 (JAN 29 22:30) H 99.9 (JAN 30 08:00) Mon HR 72 (JAN 30 08:30) 65 (JAN 29 22:30) 104 (JAN 29 22:15) Resp Rate H 34 (JAN 30 03:00) H 22 (JAN 29 23:00) H 44 (JAN 30 01:59) SBP 121 (JAN 30 08:30) 99 (JAN 30 03:30) 134 (JAN 30 03:45) DBP L 58 (JAN 30 08:30) L 56 (JAN 30 01:00) 70 (JAN 30 03:45) MAP 84 (JAN 30 08:30) 34 (JAN 30 03:15) 103 (JAN 30 02:15) SpO2 100 (JAN 30 08:30) L 87 (JAN 29:30) 100 (JAN 29 23:30) General: Intubated and sedated. Eye: Pupils are equal, round and reactive to light. HENT: Normocephalic. Neck: Supple, No carotid bruit. Respiratory: Breath sounds are equal, Symmetrical chest wall expansion. Support: Ventilator. Cardiovascular: Normal rate, Regular rhythm. Gastrointestinal: Soft, Non-distended. Musculoskeletal: No deformity. Integumentary: Warm, Dry. Neurologic: Intubated and sedated. Psychiatric: Intubated and sedated. Review / Management JAN 30 03:30 141 109 H 30 / H 194 3.9 22 H 2.30 \ JAN 30 03:30 \ L 10.9 / 7.8 262 / L 33.4 \ Cardiac Markers (Current Encounter/Past 24 Hours) ProBNP 2987 pg/mL HI 01/30/2021 07:24 Blood Gases (Current Encounter/Past 24 Hours) pH Art 7.40 01/30/2021 06:09 pCO2 Art 31.5 LOW 01/30/2021 07:24 pO2 Art 81.4 01/30/2021 06:09 HCO3 Art 19.4 LOW 01/30/2021 07:25 BE Art -4.8 LOW 01/30/2021 07:24 sO2 Art 97.4 01/30/2021 06:09 tHb Art 8.6 LOW 01/30/2021 07:25 FHHb 2.5 NA 01/30/2021 06:09 ctO2 11.7 NA 01/30/2021 06:09 FIO2 Art 75 NA 01/30/2021 06:09 Delivery Device Type Art Ventilator 01/30/2021 05:58 Temperature, F Art 98.6 NA 01/30/2021 06:09 Art Blood Gas (ABG) Site Arterial Line 01/30/2021 05:58 Acceptable Davis's Test Art Acceptable 01/30/2021 05:58 Ventilator Mode Art Assist Control Ventilation 01/30/2021 05:58 Tidal Volume Set Art 400.0 NA 01/30/2021 05:58 Set Rate Art 16.0 NA 01/30/2021 05:58 Respiratory Rate Art 16.0 NA 01/30/2021 05:58 CPAP/PEEP Art 8.0 NA 01/30/2021 05:58 Comment Art supine NA 01/30/2021 05:58 ABG Num of Draw Attempts 1 NA 01/30/2021 05:58 PaO2/FiO2 calculated 109 NA 01/30/2021 06:09 Radiology Results (Last 48 hours) [id number] -- 01/29/2021 22:07 CR Chest 1 Vw [...] caliber andcourse.Basilar predominant extensive bilateral consolidative airspaceopacities. Fkeba-dv-urjndvyw bilateral pleural effusions. Nopneumothorax.No mediastinal or axillary lymphadenopathy.No acuteAbdomen findings. Colonic diverticulosis without evidence ofdiverticulitis.IMPRESSION:1. Extensive diffuse bilateral consolidative opacities is consistentmultifocal pneumonia.2. Jbcrz-ls-thwqbauf bilateral pleural effusions. Results review: Labs (Last four charted values) WBC 7.8 (JAN 30) 9.7 (JAN 29) HB L 10.9 (JAN 30) 11.7 (JAN 29) HCT L 33.4 (JAN 30) 35.3 (JAN 29) Plt 262 (JAN 30) 290 (JAN 29) Na 141 (JAN 30) 140 (JAN 30) 141 (JAN 29) K 3.9 (JAN 30) L 3.0 (JAN 30) C 2.8 (JAN 29) Cl 109 (JAN 30) 107 (JAN 30) 107 (JAN 29) CO2 22 (JAN 30) 23 (JAN 30) 21 (JAN 29) BUN H 30 (JAN 30) H 29 (JAN 30) H 29 (JAN 29) Cr H 2.30 (JAN 30) H 2.20 (JAN 30) H 2.30 (JAN 29) Glu R H 194 (JAN 30) H 234 (JAN 30) H 276 (JAN 29) Ca L 8.3 (JAN 30) 8.9 (JAN 30) 9.0 (JAN 29) Lactic C 3.3 (JAN 30) C 5.0 (JAN 29) PT H 12.5 (JAN 29) INR 1.2 (JAN 29) PTT 31.8 (JAN 29) AST 21 (JAN 30) ALT L 11 (JAN 30) ALK P 64 (JAN 30) T Bili 0.6 (JAN 30) PTN L 5.9 (JAN 30) ALB L 2.8 (JAN 30) Troponin C 0.771 (JAN 29) . Impression and Plan IMPRESSION: PEA cardiopulmonary arrest during stress test at [facility]. ROSC unknown (brief per report) Pressor support Initial rhythm atrial fibrillation post cardiopulmonary arrest, now SR. Amio drip Acute hypoxic respiratory failure Ventilation support Bilateral infiltrates TAYLOR PLAN; Continue supportive care. Restart/modify home meds when appropriate. Consider coronary assessment when more stable. documented in this encounter Plan of Treatment Not on file documented as of this encounter Visit Diagnoses Not on filedocumented in this encounter
--- OUTSIDE RECORDS SUMMARY | 2024-02-15 23:04 | XMS_ITS | Encounter Summary ---
Author Organization [employer] Address [address] [place] [address] Care Team Providers Care Spray Crew Name Role Phone Unavailable Primary Care Provider Unavailabl e Encounter Details Date Type Department Care Team (Late st Contact Info) Description 01/29/2021 Transcribed Document [facility] [place] Medicine [address] [place] [address] ProviderDick MD [address] [place] [address] Social History Tobacco Use Types [...] Conversion Note - Historical ProviderMD - 01/29/2021 10:38 PM SENIOR RISK ANALYST Consult Phone Call Documentation Entered On: 01/30/2021 8:41 EST Performed On: 01/29/2021 22:38 EST by Arianna Jenkins, Auto Brake Technician-Health Unit Coord Phone Call for Consults Consult Reason : already seen Arianna Jenkins, Auto Brake Technician-Health Unit Coord - 01/30/2021 8:41 EST Electronically signed by Parviz [facility] Conversion Rn Labor And Delivery Cerdev at 06/22/2022 7:14 PM CDT documented in this encounter Plan of Treatment Not on file documented as of this encounter Visit Diagnoses Not on filedocumented in this encounter
--- OUTSIDE RECORDS SUMMARY | 2024-02-15 23:04 | XMS_ITS | Encounter Summary ---
Author Organization [employer] Address [address] [place] [address] Care Team Providers Care Comsec Manager Name Role Phone Unavailable Primary Care Provider Unavailabl e Encounter Details Date Type Department Care Team (Late st Contact Info) Description 01/29/2021 Historic Encounter [facility] [address] [place] [address] Provider, [facility] Historical Social History Tobacco [...] Procedure Name Priority Date/Time Associated Diagnosis Comments PROBNP ([facility] BK DATA CONV Routine 01/29/2021 10:54 PM EST documented in this encounter Results * (ABNORMAL) PROBNP ([facility] BKR DATA CONV (01/29/2021 10:54 PM EST) ProBNP 2987(H) 0 - 125 pg/mL 01/30/2021 5:04 AM EST Blood 01/29/2021 10:5 4 PM EST 01/30/2021 4:04 AM EST [facility] Historical Provider LAB BLOOD ORDERABLES Fi nal Result [facility] [address] [place], [place] [address] [phone] documented in this encounter Visit Diagnoses Not on filedocumented in this encounter
--- OUTSIDE RECORDS SUMMARY | 2024-02-15 23:04 | XMS_ITS | Encounter Summary ---
Author Organization [employer] Address [address] [place] [address] Care Team Providers Care Technician Automatic Name Role Phone Unavailable Primary Care Provider Unavailabl e Encounter Details Date Type Department Care Team (Late st Contact Info) Description 01/30/2021 Transcribed Document [facility] [place] Family Medicine [facility] [place] [address] ProviderDick MD [address] [place] [address] Social History Tobacco Use Types [...] Conversion Note - Historical ProviderMD - 01/30/2021 10:47 AM RN HEMATOLOGY DATE OF CONSULTATION: 01/30/2021 NEUROLOGY CONSULTATION REASON FOR CONSULT: Neurologic evaluation post cardiac arrest. HISTORY OF PRESENT ILLNESS: This is a 75-year-old female with history of hypertension, who was admitted in transfer from an outside facility yesterday evening after PEA arrest. She apparently had been having a cardiac stress test and then developed shortness of breath and went into arrest. I do not know how long she was resuscitated, but ultimately was transferred here, intubated, and on no sedation. She was apparently not a candidate for hypothermia protocol. Since she has been here, she has become more alert, now following commands and shaking and nodding her head to questions. At no time have seizures been noted and she has not had any focal neurologic deficits. PAST MEDICAL HISTORY: Hypertension, hypothyroidism, hyperlipidemia, diabetes. HOME MEDICATIONS: 1. Levothyroxine. 2. Isosorbide mononitrate. 3. Pioglitazone. 4. Simvastatin. 5. Glipizide. 6. Clonidine. 7. Furosemide. 8. Amlodipine. 9. Lisinopril. SOCIAL HISTORY: Not obtainable from the patient. FAMILY HISTORY: Not obtainable. REVIEW OF SYSTEMS: As per HPI. I could not obtain any further from the patient. PHYSICAL EXAMINATION: GENERAL: The patient is intubated, on minimal amounts of sedation. She will open her eyes to voice. She was able to shake and nod her head appropriately to questions and followed all commands. VITAL SIGNS: Blood pressure 121/58, heart rate 72, temperature 99.9. CARDIAC: Currently showing normal sinus rhythm. LUNGS: She is overbreathing the ventilator. EXTREMITIES: Without clubbing, cyanosis, or edema. NEUROLOGIC: Again, speech could not be evaluated. She is ventilated, but she seems to understand questions and appropriately shakes and nods her head and follows commands. Cranial nerves are intact. Bilateral proptosis is noted. She is able to move all extremities equally with full strength. She is able to give thumbs up, wiggle toes. No focal deficits were noted. She indicates sensation is intact to light touch. No gross ataxia was noted. I did not assess deep tendon reflexes in this setting. I did not ambulate the patient due to her current status. DIAGNOSTIC STUDIES: IMAGING STUDIES: Reportedly, a head CT was performed in the outside facility, which did not show any acute abnormalities. I do not have access to those images. LABORATORY RESULTS: Blood work has been reviewed here. Her BUN is 30, creatinine 2.3. Initial troponin 0.771. White count 7.8, hemoglobin 10.9. COVID PCR negative. ASSESSMENT/PLAN: A 75-year-old female admitted after PEA arrest during a cardiac stress test. Since her transfer here, mentation has improved. She is now responding to questions and following commands with no focal neurologic deficits. At this time, I do have low concern for any acute neurologic event or anoxic brain injury. From my standpoint, there is no need for further neurologic testing at this point, and I will sign off. Please call if any questions. /[id number] MD GAVIN Ruano/SUMEET / GAVIN / AUGUSTINE /[phone] Electronically signed by Parviz, [facility] Conversion Dishwashing Machine Repairer Cerner at 06/22/2022 7:21 PM CDT documented in this encounter Plan of Treatment Not on file documented as of this encounter Visit Diagnoses Not on filedocumented in this encounter
--- OUTSIDE RECORDS SUMMARY | 2024-02-15 23:04 | XMS_ITS | Encounter Summary ---
Author Organization [employer] Address [address] [place] [address] Care Team Providers Care Dry Wall Plasterer Name Role Phone Unavailable Primary Care Provider Unavailabl e Encounter Details Date Type Department Care Team (Late st Contact Info) Description 01/29/2021 Transcribed Document [facility] [place] Family Medicine [facility] [place] [address] ProviderDick MD [facility] [address] Social History Tobacco Use Types [...] Conversion Note - Historical ProviderMD - 01/29/2021 11:23 PM PANEL WIRER Nutrition Assessment Entered On: 01/31/2021 9:23 EST Performed On: 01/31/2021 9:23 EST by Arianna Jack Dietitian Nutrition Assessment Nutrition Assessment Reason : Consult, Nutrition support, Automatic referral Arianna Jack Dietitian - 01/31/2021 9:23 EST Current Nutrition Regimen Comment : 01/31: c/s- EN recs, BMI >40. Pt [...] acute encephalopathy PMH: DM, HTN, colostomy Labs: Glu 182, BUN 32, Cr 2.6, GFR 18, Mg 1.4, FSB/252/126 Meds: docusate, abx, Pepcid, SSI, probiotic, steroid, senna Drips: Levo @ 0.1mcg/kg/min Diet; NPO GI: +BS, +OGT, LBM INSPECTOR PACKER GLASS CONTAINER Skin: No breakdown noted Ht: 5'2 Wt: 78.2kg/172# BMI: 31.5 IBW: 110#, 156% Est nutrient needs: 5618-2849 kcals (14-16 kcal/kg), 90-100g pro (1.2 g/kg ABW vs 2.0 g/kg IBW) Arianna Jack Dietitian - 01/31/2021 10:49 EST Nutrition Diagnoses Oral or Nutrition Support Intake : Inadequate oral intake Oral or Nutr Support Intake Related To : resp distress- vent Oral or Nutr Support Intake Evidenced by : NPO status Oral or Nutrition Support Intake Status : Active Arianna Jack Dietitian - 01/31/2021 10:49 EST Nutrition Interventions Meals and Snacks Other Comment : NPO Arianna Jack Dietitian - 01/31/2021 10:49 EST Monitoring/Evaluation Weight Status : Weight Maintanence Gastrointestinal Function : Bowel Function Arianna Jack Dietitian - 01/31/2021 10:49 EST Nutrition Recommendations Dietitian Recommendations : 1. If pt extubated, advance diet per MD and OIL WELL DRILLER + cardiac, 60g CHO. RD to assess for supplements Goal: tolerate PO diet advancement 2. If pt remains intubated, place a post-pyloric corpak and initiate Vital HP @ 10ml/hr. AAT to a goal rate of 55ml/hr (1210 kcals, 106g pro). FW per MD. Goal: meet est needs 3. Monitor weight 2x weekly Goal: prevent unintentional wt changes 4. Optimize Glucose level Goal: glu 100-180 High nutrition risk Arianna Jack Dietitian - 01/31/2021 10:51 EST Electronically signed by [facility], [facility] Conversion Chick Room Supervisor Cerner at 06/22/2022 7:29 PM CDT documented in this encounter Plan of Treatment Not on file documented as of this encounter Visit Diagnoses Not on filedocumented in this encounter
== END 2024-02-15 23:59 | disposition home or self-care (01) ==
LOC: LAB 10:32
PROVIDERS: PCP Family Medicine; Visit Provider Nurse Practitioner
DX: N18.4 Chronic kidney disease, stage 4 (severe) (principal)
CPT/HCPCS: 36415; 80069; 81001; 82043; 82570; 84156; 85027

== ENCOUNTER 2024-04-25 10:46 | Outpatient (CLI) | payer MEDICARE, MEDICAID, SELFPAY ==
--- NOTE | 2024-04-25 11:04 | MM_ITS ---
PROCEDURE INFORMATION: Exam: MG Bilateral Screening 3D Mammography Exam date and time: 04/25/2024 11:07 AM Age: 79 years old Clinical indication: Screening mammogram TECHNIQUE: Imaging protocol: Bilateral Screening tomosynthesis and 2D mammography including computer-aided detection (CAD) when performed. COMPARISON: 1. MG MM DIG SCREENING MAMM BI W/CAD 02/12/2023 9:50 AM 2. MG MM DIG SCREENING MAMM BI W/CAD 02/02/2022 1:18 PM 3. MG MM DIG SCREENING MAMM BI W/CAD 01/30/2020 11:02 AM 4. MG MM DIG SCREENING MAMM BI W/CAD 01/27/2019 11:14 AM FINDINGS: MAMMOGRAPHY: Breast composition: There are scattered areas of fibroglandular density. Mass: None. Architectural distortion: No new or suspicious architectural distortion. Calcifications: Stable benign-appearing calcifications are present. No new or suspicious cluster of microcalcifications have developed. Asymmetric density: No new or suspicious asymmetric density is present Skin thickening: None. Axillary adenopathy: None. IMPRESSION: No mammographic evidence of malignancy. Recommend annual screening mammography unless otherwise clinically indicated. ASSESSMENT: BI-RADS category 2: Benign.
== END 2024-04-25 23:59 | disposition home or self-care (01) ==
LOC: RAD 10:48
PROVIDERS: PCP Family Medicine; Visit Provider Family Medicine
DX: Z12.31 Encounter for screening mammogram for malignant neoplasm of breast (principal)
CPT/HCPCS: 77063; 77067

== ENCOUNTER 2024-08-25 10:16 | Outpatient (CLI) | payer MEDICARE, MEDICAID, SELFPAY ==
--- OUTSIDE RECORDS SUMMARY | 2024-08-25 10:20 | XMS_ITS | Encounter Summary ---
Author Organization [employer] Address [address] [place] [address] Care Team Providers Care Vice President Of Sales Name Role Phone Unavailable Primary Care Provider Unavailabl e Encounter Details Date Type Department Care Team (Late st Contact Info) Description 01/29/2021 Transcribed Document [facility] [place] Family Medicine [facility] [place] [address] ProviderDick MD [facility] [address] Social History Tobacco Use Types [...] - Historical ProviderMD - 01/29/2021 11:23 PM CIRCUIT DESIGNER Nutrition Assessment Entered On: 01/31/2021 9:23 EST [...] 0.1mcg/kg/min Diet; NPO GI: +BS, +OGT, LBM EXHIBITION SPECIALIST Skin: No breakdown noted Ht: 5'2 Wt: 78.2kg/172# BMI: 31.5 IBW: 110#, 156% Est nutrient needs: 5982-7961 kcals (14-16 kcal/kg), 90-100g pro (1.2 g/kg [...] and Snacks Other Comment : NPO Arianna Jcak Dietitian - 01/31/2021 10:49 EST Monitoring/Evaluation Weight Status : Weight Maintanence Gastrointestinal Function : Bowel Function Arianna Jack Dietitian - 01/31/2021 10:49 EST Nutrition Recommendations Dietitian Recommendations : 1. If pt extubated, advance diet per MD and JAVA TECHNICAL ARCHITECT + cardiac, 60g CHO. RD to assess [...] - 01/31/2021 10:51 EST Electronically signed by [facility], [facility] Conversion Applications Administrator Cerner at 06/22/2022 7:29 PM CDT documented in this encounter Plan of Treatment Not on file documented as of this encounter Visit Diagnoses Not on filedocumented in this encounter
--- OUTSIDE RECORDS SUMMARY | 2024-08-25 10:20 | XMS_ITS | Data Portability ---
Author Organization [facility] ADMIN Address [address] [place] [address] Assessment No assessment recorded. Plan of Treatment Reminders Order Date Submit Date Provider Last Modified By Organization Details Last Modified Time Details Appointments None record ed. Lab None record ed. Referral None record ed. Procedures None record ed. Surgeries None record ed. Imaging None record ed. Medication Orders None record ed. Patient TargetsNo targets recorded. Patient Instructions Encounter Date Encounter Id Patient Instructions Last Modified By Organization Details Last Modified Time 02/23/2024 [id number] Patient does hav e asymmetric sensorineural hearing loss right greater than left. She has no concerning symptoms for an acoustic neuroma with regard to significant unilateral tinnitus or vertigo. She is cleared for hearing amplification at this time. [email or web address] Not available 02/24/2024 07:30:19 Reason for Referral None Reported. Results Created Date Observation Date Name Description Value Unit Range Abnormal Flag Note LastModifiedBy Organization Detail LastModifiedTime 02/09/20 24 02/09/2024 audio gram No observ ation record ed. [email or web address] Not Available 2023 12:45:34 Result Notes None recorded. Problems Name Problem SNOMED Code Status Onset Date Resolution Date Notes Provider Name and Address Organization Details Recorded Time Sensorineural hearing loss 32656382 Active 2023 PAULINE HERNANDEZ [address] , [place], [address] , [facility] [place] 10:54:47 Asymmetrical sensorineural hearing loss 175448481 Active 2023 PAULINE HERNANDEZ [address], [place], [address] , [facility] [place] 10:57:21 Problem Notes None recorded. Procedures Surgical History Date Name Laterality Status Provider Name and Address Organization Details Recorded Time Hysterectomy completed Cynthia Ocampoence [facility] 02/23/2024 13:56:05 colonoscopy completed Cynthia HANCOCK [facility] [place] 02/23/2024 13:56:13 Imaging Results None recorded. Procedure Notes None recorded. Medical Equipment None Reported. Allergies No known drug allergies Medications Name Sig Start Date Stop Date Status Note LastModified by Organization Details LastModified Time atorvastatin 40 mg tablet active Not Available Not Available Not Available carvedilol 25 mg tablet active Not Available Not Available No t Available azithromycin 250 mg tablet 02/22 completed Not Available Not Available Not Available lisinopril 20 mg tablet active Not Available Not Available No t Available famotidine 40 mg tablet active Not Available Not Available No t Available torsemide 10 mg tablet active Not Available Not Available No t Available levothyroxine 88 mcg tablet active Not Available Not Availabl e Not Available famotidine 20 mg tablet 02/22 completed Not Available Not Available Not Available isosorbide dinitrate 20 mg tablet active Not Available Not Available No t Available hydralazine 50 mg tablet active Not Available Not Available Not Available albuterol sulfate HFA 90 mcg/actuation aerosol inhaler active Not Available Not Available Not Available metformin ER 500 mg tablet,extend ed release 24 hr active Not Available Not Available Not Available Microlet Lancet USE 1 LANCET TO CHECK BLOOD SUGAR ONCE DAILY FOR 90 DAYS active Not Available Not Available No t Available Contour Next Test Strips USE 1 STRIP TO TEST BLOOD SUGAR DAILY FOR 90 DAYS active Not Available Not Available No t Available Ferate 240 mg (27 mg iron) tablet 02/22 completed Not Available Not Available Not Available Vitals Date Recorded Body weight Body mass index (BMI) Body height Body temperature Provider Name and Address Organization Details Last Updated DateTime 02/23/2024 93643.15 g 26.8 kg/m2 152.4 cm 97.5 [degF] Cynthia HANCOCK [facility] [place] 02/23/2024 13:54:25 Social History None recorded. Functional Status None recorded. Mental Status None recorded. Family History Nothing Reported. Medical History Condition Response Acid Reflux (GERD) Y Hyperlipidemia Y Hypertension Y Gynecological HistoryNo gynecological history recorded. Obstetrics History GPAL:G 0 P 0 0 0 0 Past Encounters Encounter ID Performer Location Encounter Start Date Encounter Closed Date Diagnosis/Indication Diagnosis SNOMED-CT Code Diagnosis ICD10 Code Diagnosis Note [id number] PAULINE HERNANDEZ [facility] [id number] 02/09/2024 10:32:41 02/09/2024 10:57:41 Asymmetrical sensorineural hearing loss 830222473 H90.5 [id number] Venita Coley MD [facility] [id number] 02/23/2024 13:41:12 02/23/2024 14:17:34 Asymmetrical sensorineural hearing loss 870649738 H90.5 Sensorineu ral hearing loss of bilateral ears 790574379 H90.3 [id number] PAULINE HERNANDEZ [facility] [id number] 03/22/2024 09:42:30 03/22/2024 10:08:39 Asymmetrical sensorineural hearing loss 144827880 H90.5 Health Concerns Section Related Observation LastModified by Organization Detai ls LastModified Time None Recorded Concern Status LastModified by Organization Details LastModified Time None Recorded Advance Directives Directive None Recorded Payers Insurance Date Sequence Insurance Name Policy Number Policy Kumar Covered Member ID Kumar Member ID Guarantor Name 03/19/2024 2 [place] [facility] [place] FFS/TRADITIO NAL Carol Cazares [id number] Carol Cazares 03/19/2024 [facility] Carol Cazares [id number] Carol Cazares Notes Date Note Type Note Provider Name and Address Organization Details Recorded Time 02/09/2024 text/html Ms. Cazares was s een today for an audiologic evaluation due to long-standing hearing loss bilaterally. She reports that she hears better in the LE than the RE, however, she is unsure of how long that has been the case. She denies tinnitus, dizziness, drainage, aural fullness/pressure, and excessive noise exposure. She reports that she relies on the LE for communication. Otoscopic inspection was unremarkable bilaterally. Type A Tympanogram bilaterally Audiometric testing revealed a mild, sloping to severe, low through high freq SNHL with fair word rec scores. Findings in the RE revealed severe SNHL across all frequencies with no functional word recognition. 1-Discussed findings with Ms. Cazares. 2-Rec unilateral hearing aid for the LE, or BiCROS for a bilateral fitting following medical clearance. 3-F/u for medical clearance with Dr. Venita Coley as planned. PAULINE HERNANDEZ [address], [place], [address], [facility] [place] 02/09/2024 10:57:37 02/23/2024 text/html 02/23/24-Patient is here for medical clearance for hearing amplification. She has had very longstanding hearing loss and has actually purchased [id number]-vdu-[id number] amplification several years ago on her own. She denies any otologic history such as tympanostomy tube placement or mastoidectomy. She does report that she is occasionally off balance but denies any significant vertigo or tinnitus. She does have noise exposure in multiple occupational positions in the past. She reports as long as she can remember she has always been able to hear better out of the left ear than the right ear. There is no history of congenital hearing loss in her family. Venita Coley MD [address], [place], [address], [facility] [place] 02/24/2024 07:30:37 03/22/2024 text/html Ms. Cazares was s een today for a hearing aid trial in the LE. F/u 2-3 weeks. VIV ROWAN, PAULINE [address], [place], [address], [facility] [place] 03/22/2024 10:19:52 OBGyn Episode No OBEpisode recorded.
--- OUTSIDE RECORDS SUMMARY | 2024-08-25 10:20 | XMS_ITS | Encounter Summary ---
Author Organization [employer] Address [address] [place] [address] Care Team Providers Care Health Science Writer Name Role Phone Unavailable Primary Care Provider Unavailabl e Encounter Details Date Type Department Care Team (Late st Contact Info) Description 01/30/2021 Transcribed Document [facility] [place] Medicine [address] [place] [address] ProviderDick MD [address] [place] [address] Social History Tobacco Use Types [...] - Historical ProviderMD - 01/30/2021 10:34 AM TELEVISION SERVICER Therapy Screen, PT Entered On: 01/30/2021 10:35 EST Performed On: 01/30/2021 10:34 EST by Shama Rose BAND SPLITTER-PHYSICAL THERAPY Therapy Screen, PT Medical Chart Reviewed : Yes Person Providing Information : Nurse Shama Rose, BAND SPLITTER-PHYSICAL THERAPY - 01/30/2021 10:34 EST Additional Therapy Screen Comment : Pt is currently intubated and sedated. PT will require reorders when medically appropriate. PT has reviewed and agrees. PRUDENCE AMARO, PT - 01/30/2021 11:43 EST Electronically signed by Parviz [facility] Conversion Superintendent Renting Managing Cerner at 06/22/2022 7:28 PM CDT documented in this encounter Plan of Treatment Not on file documented as of this encounter Visit Diagnoses Not on filedocumented in this encounter
--- OUTSIDE RECORDS SUMMARY | 2024-08-25 10:20 | XMS_ITS | Encounter Summary ---
Author Organization [employer] Address [address] [place] [address] Care Team Providers Care Trapeze Performer Name Role Phone Unavailable Primary Care Provider Unavailabl e Encounter Details Date Type Department Care Team (Late st Contact Info) Description 01/30/2021 Transcribed Document [facility] [place] [facility] [place] [address] ProviderDick MD [address] [place] [address] Social History Tobacco Use Types [...] - Historical ProviderMD - 01/30/2021 8:39 AM FIELD PROJECT MANAGER Consult Phone Call Documentation Entered On: 01/30/2021 8:49 EST Performed On: 01/30/2021 8:39 EST by Arianna Jenkins Manager Study-Health Unit Coord Phone Call for Consults Consult Reason : bassam justino kolbeffer in ccu Arianna Jenkins, Manager Study-Health Unit Coord - 01/30/2021 8:48 EST documented in this encounter Plan of Treatment Not on file documented as of this encounter Visit Diagnoses Not on filedocumented in this encounter
--- OUTSIDE RECORDS SUMMARY | 2024-08-25 10:20 | XMS_ITS | Encounter Summary ---
Author Organization [employer] Address [address] [place] [address] Care Team Providers Care Ecommerce Marketing Specialist Name Role Phone Unavailable Primary Care Provider Unavailabl e Encounter Details Date Type Department Care Team (Late st Contact Info) Description 01/30/2021 Transcribed Document [facility] [place] [facility] [place] [address] ProviderDick MD [address] [place] [address] Social History Tobacco Use Types [...] - Historical ProviderMD - 01/30/2021 10:34 AM NETWORK SECURITY CONSULTANT [facility] PT Charges Entered On: 01/30/2021 10:36 EST Performed On: 01/30/2021 10:34 EST by Shama Rose MANAGER UNIX-PHYSICAL THERAPY [facility] PT Charges Physical Therapy Screen : 1 (Comment: PT has reviewed and agrees. [PRUDENCE AMARO, PT - 01/30/2021 11:44 EST] ) PRUDENCE AMARO PT - 01/30/2021 11:44 EST documented in this encounter Plan of Treatment Not on file documented as of this encounter Visit Diagnoses Not on filedocumented in this encounter
--- OUTSIDE RECORDS SUMMARY | 2024-08-25 10:20 | XMS_ITS | Encounter Summary ---
Author Organization [employer] Address [address] [place] [address] Care Team Providers Care Electroplater Helper Name Role Phone Unavailable Primary Care Provider Unavailabl e Encounter Details Date Type Department Care Team (Late st Contact Info) Description 01/30/2021 Transcribed Document [facility] [place] Family Medicine [facility] [place] [address] ProviderDick MD [address] [place] [address] Social History Tobacco Use Types [...] - Historical ProviderMD - 01/30/2021 8:04 AM DESIZING MACHINE OFFBEARER [facility] OT Charges Entered On: 01/30/2021 8:05 EST Performed On: 01/30/2021 8:04 EST by BENJAMÍN MEMBRENO OTR/Dieter Roa OT Charges Screen For Digital Associate : 1 BENJAMÍN MEMBRENO OTR/Dieter - 01/30/2021 8:04 EST documented in this encounter Plan of Treatment Not on file documented as of this encounter Visit Diagnoses Not on filedocumented in this encounter
--- OUTSIDE RECORDS SUMMARY | 2024-08-25 10:20 | XMS_ITS | Encounter Summary ---
Author Organization [employer] Address [address] [place] [address] Care Team Providers Care Insurance Agency Owner Name Role Phone Unavailable Primary Care Provider Unavailabl e Encounter Details Date Type Department Care Team (Late st Contact Info) Description 02/04/2021 Transcribed Document EM Family Medicine [facility] [place] [address] ProviderDick MD [facility] [place] [address] Social History Tobacco Use Types [...] - Dick ProviderMD - 02/04/2021 4:15 PM PRODUCTION BROACHING MACHINE OPERATOR Patient Resource Center Entered On: 02/04/2021 16:16 EST Performed On: 02/04/2021 16:15 EST by Tamica Aguilar, Lumite Injector Patient Resource Center Provider Status : EST Other Established Provider Name : ELLIE YOON Patient Phone Number : [phone] Patient Insurance Type : Medicare Source of [...] Follow Up Needed : No Tamica Aguilar, Lumite Injector - 02/04/2021 16:15 EST Electronically signed by Parviz, [facility] Conversion Cops Cerner at 06/22/2022 7:17 PM CDT documented in this encounter Plan of Treatment Not on file documented as of this encounter Visit Diagnoses Not on filedocumented in this encounter
--- OUTSIDE RECORDS SUMMARY | 2024-08-25 10:20 | XMS_ITS | Encounter Summary ---
Author Organization [employer] Address [address] [place] [address] Care Team Providers Care Foaming Machine Operator Name Role Phone Unavailable Primary Care Provider Unavailabl e Encounter Details Date Type Department Care Team (Late st Contact Info) Description 01/30/2021 Transcribed Document [facility] [place] [facility] [place] [address] ProviderDick MD [address] [place] [address] Social History Tobacco Use Types [...] - Historical ProviderMD - 01/30/2021 7:44 AM COLLEGE ADMINISTRATOR Patient: CISCO CAZARES Age: 75 Years Sex: [...] [Cooperative Assessment/Plan PEA cardiopulmonary arrest -Occurred at [facility] during a Stress Test with [...] - Medical Enoxaparin 30 mg, SubCutaneous, Inj, [id number], Start 01/30/21 1:00:00 EST (VALENTINA BURNS) Sequential [...] Daily Lovenox, 30 mg= 0.3 mL, SubCutaneous, [id number] MiraLax, 17 Gram= 1 Packet, Oral, Daily, [...] Zyvox, 600 mg= 300 mL, IV Piggyback, [id number] Diagnostic Results Radiology Results (Last 48 hours) [id number] -- 01/29/2021 22:07 CR Chest 1 Vw [...] caliber andcourse.Basilar predominant extensive bilateral consolidative airspaceopacities. Ykcna-ft-gftrnlrd bilateral pleural effusions. Nopneumothorax.No mediastinal or axillary lymphadenopathy.No acuteAbdomen findings. Colonic diverticulosis without evidence ofdiverticulitis.IMPRESSION:1. Extensive diffuse bilateral consolidative opacities is consistent multifocal pneumonia.2. Tdfzc-ek-cbrdoshn bilateral pleural effusions. Lab Results Test Name [...] Lymph # 1.27 x10(3)/uL 01/29/2021 22:54 EST Phillips % 5.9 % 01/30/2021 00:12 EST Phillips % 6.7 % 01/29/2021 22:54 EST Phillips # 0.46 K/uL 01/30/2021 00:12 EST Phillips # 0.65 K/uL 01/29/2021 22:54 EST Eos [...] 01/29/2021 22:54 EST Electronically signed by Parviz, [facility] Conversion Cement Crusher Operator Cerner at 06/22/2022 7:28 PM CDT documented in this encounter Plan of Treatment Not on file documented as of this encounter Visit Diagnoses Not on filedocumented in this encounter
--- OUTSIDE RECORDS SUMMARY | 2024-08-25 10:20 | XMS_ITS | Encounter Summary ---
Author Organization [employer] Address [address] [place] [address] Care Team Providers Care Umbrella Mender Name Role Phone Unavailable Primary Care Provider Unavailabl e Encounter Details Date Type Department Care Team (Late st Contact Info) Description 01/30/[address] [facility] [place] [facility] [place] [address] ProviderDick MD [address] [place] [address] Social History Tobacco Use Types [...] - Historical ProviderMD - 01/30/2021 9:11 AM CLAY TRANSPORTER UM Authorization Entered On: 01/30/2021 9:11 EST Performed On: 01/30/2021 9:11 EST by Rachell Castillo Rn-Utilization Review Primary Insurance Authorization Authorization and Policy Numbers : Insurance 1 Health Plan: MEDICARE Policy Number: [id number] Authorization Number: Insurance 2 Health Plan: MEDICAID QMB Policy Number: [id number] Authorization Number: Insurance Primary Name : MEDICARE Authorized Service Begin Date-Primary : 01/29/2021 EST Historical Authorization Comments-Primary : No Authorization Comments Found Rachell Castillo Rn-Utilization Review - 01/30/2021 9:11 EST Electronically signed by Parviz [facility] Conversion Pre Owned Sales Manager Cerner at 06/22/2022 7:28 PM CDT documented in this encounter Plan of Treatment Not on file documented as of this encounter Visit Diagnoses Not on filedocumented in this encounter
--- OUTSIDE RECORDS SUMMARY | 2024-08-25 10:20 | XMS_ITS | Encounter Summary ---
Author Organization [employer] Address [address] [place] [address] Care Team Providers Care Digital Computer Operator Name Role Phone Unavailable Primary Care Provider Unavailabl e Encounter Details Date Type Department Care Team (Late st Contact Info) Description 02/04/2021 Transcribed Document [facility] [place] [facility] [place] [address] ProviderDick MD [facility] [place] [address] Social History Tobacco Use [...] - Historical ProviderMD - 02/04/2021 4:12 PM BPO SPECIALIST On Going Discharge Planning Entered On: 02/04/2021 16:13 EST Performed On: 02/04/2021 16:12 EST by Wong Teague, NEWSPAPER ILLUSTRATOR NON-EXEMPT Care Management Progress Note Discharge Arrangements : Patient Post-Acute Information Patient Name: CISCO CAZARES Gender: Female : [birth year] Age: 75 Years No Post-Acute Placement(s) Listed No Post-Acute Service(s) Listed No Curaspan Referral(s) Listed Discharge Options Discussed with Patient : Acute rehabilitation, Home Health, [facility]PC Barriers to Discharge Identified : Clinical Condition of Patient Barriers to Discharge Unresolved : Clinical Condition of Patient Patient Offered Choice/Affiliations Explained : Yes Designation of Choice Signed : Yes List/Info Provided Pt/Fam/Support Person : Inpatient rehabilitation facility, prison facilities Were Referrals Sent to Post Acute Providers : Yes Is the Patient Meeting Medical Necessity : Yes Physician Agreeable to Move Forward with D/C Plan? : Yes Discharge Plan Comment : SNF vs HH Did you Attend Multidisciplinary Rounds? : Yes Wong Teague NEWSPAPER ILLUSTRATOR NON-EXEMPT - 02/04/2021 16:12 EST Narrative Progress Note Narrative Progress Note : Day 6 of 5 ELOS Moderate readmission risk Pt originally wants HH, but now considering [facility] Possible [facility] tomorrow if she accepts [facility] has presented to their MD for review [facility] wheelchair van once approved Pt & [...] chair. ST: taking po. pt resides in [facility]. she lives alone. adl independent. no dme, hh or rehab stays dcp: spoke with Ms. Cazares. discussed rehab: she is agreeable to referrals to [facility]. he ultimate goal would be home with home health. no poa/hcs. single. 1 child. Eunice, daughter, legal next of kin: [phone] spoke with lisseth Moy RN. JANET MADRID, RN-Jewelry Mold Maker - 02/03/21 09:27:16 Wong Teague NEWSPAPER ILLUSTRATOR NON-EXEMPT - 02/04/2021 16:12 EST documented in this encounter Plan of Treatment Not on file documented as of this encounter Visit Diagnoses Not on filedocumented in this encounter
--- OUTSIDE RECORDS SUMMARY | 2024-08-25 10:20 | XMS_ITS | Encounter Summary ---
Author Organization [employer] Address [address] [place] [address] Care Team Providers Care Homebound Teacher Name Role Phone Unavailable Primary Care Provider Unavailabl e Encounter Details Date Type Department Care Team (Late st Contact Info) Description 02/04/2021 Transcribed Document [facility] [place] [facility] [place] [address] ProviderDick MD [address] [place] [address] Social History Tobacco Use Types Packs/Day [...] - Historical ProviderMD - 02/04/2021 1:06 PM MARKET RISK MANAGER Patient: CISCO CAZARES Age: 75 years Sex: Female : 1945 Associated Diagnoses: None Author: WINSTON NUÑEZ MD-INF Basic Information CC: Sepsis, probable aspiration pneumonia History of Present Illness 75 yo female with h/o T2DM, HLD, hypothyroidism, and HTN who presented to [facility] on 01/29/21 by transfer from [facility] for cardiology evaluation. The patient was getting [...] creatinine of 1.9. She was transferred to [facility]. On arrival on 01/29, her Tlow was [...] 100 - 100 mg, IV Piggyback, Inj, [id number], infuse over 2 Hour(s), order duration: 7 Day(s), Routine Immunology methylPREDNISolone (methylPREDNISolone sodium succinate) - 40 mg, IV Push, Inj, Daily, Routine Anticoagulant enoxaparin (Lovenox) - 30 mg, SubCutaneous, Inj, [id number] Cardiovascular isosorbide mononitrate - 90 mg, Oral, [...] (Chloraseptic Menthol 1.4% topical spray) - 1 [place], Oral, [place], Q2H, PRN for Sore Throat, Routine Vitamins [...] No tenderness, No deformity. Integumentary: Warm, Dry, [place], No rash. Neurologic: Alert, No focal deficits, [...] Troponin C 0.771 (JAN 29) , ACC: [id number] ORDER: Culture Blood DATE: 01/29/2021 22:39 SOURCE: Blood SITE: Reports Final 02/04/2021 06:01 No growth at 5 days. Pre 02/03/2021 06:01 No growth at 4 days. Pre 02/02/2021 06:02 No growth at 3 days. Pre 02/01/2021 06:02 No growth at 2 days. Pre 01/31/2021 06:01 No growth at 1 day. Pre 01/30/2021 16:01 Culture less than 24 Hrs old == ACC: [id number] ORDER: Culture Blood DATE: 01/29/2021 22:39 SOURCE: Blood SITE: Reports Final 02/04/2021 06:01 No growth at 5 days. Pre 02/03/2021 06:01 No growth at 4 days. Pre 02/02/2021 06:02 No growth at 3 days. Pre 02/01/2021 06:02 No growth at 2 days. Pre 01/31/2021 06:01 No growth at 1 day. Pre 01/30/2021 16:01 Culture less than 24 Hrs old == ACC: [id number] ORDER: Culture MRSA Surveillance DATE: 02/01/2021 09:11 SOURCE: Nasal SITE: Reports Final 02/02/2021 12:55 No MRSA isolated For Infection Control surveillance only. == ACC: [id number] ORDER: Culture Bronch Wash and Stain DATE: 01/30/2021 10:46 SOURCE: Right Lower Lobe SITE: Reports Final 02/01/2021 09:52 No growth Pre 01/31/2021 07:02 No growth GS 01/30/2021 14:00 No organisms seen. Few White Blood Cells == ACC: [id number] ORDER: Culture Sputum and Stain DATE: 01/29/2021 23:26 SOURCE: Tracheal Aspirate SITE: Reports Final 02/01/2021 09:26 Light respiratory georgina isolated No Staph aureus or MRSA isolated. Pre 01/31/2021 06:54 Light respiratory georgina isolated GS 01/30/2021 06:17 <25 Epithelial cells/LPF >25 WBC/LPF Rare Gram Positive Cocci in pairs == ACC: [id number] ORDER: Culture AFB and Stain DATE: 01/30/2021 10:46 SOURCE: Bronchial Alveolar Lavage SITE: Lung R Reports AFB Stain Concentrate 01/31/2021 14:05 No Acid Fast Bacilli seen == ACC: [id number] ORDER: Culture Fungus DATE: 01/30/2021 10:46 SOURCE: [...]
--- OUTSIDE RECORDS SUMMARY | 2024-08-25 10:20 | XMS_ITS | Encounter Summary ---
Author Organization [employer] Address [address] [place] [address] Care Team Providers Care Benefits Counselor Name Role Phone Unavailable Primary Care Provider Unavailabl e Encounter Details Date Type Department Care Team (Late st Contact Info) Description 02/04/2021 Transcribed Document [facility] [place] Medicine [facility] [place] [address] ProviderDick MD [facility] [place] [address] Social History Tobacco Use Types [...] - Historical Provider, - 02/04/2021 4:46 PM SPRINKLER INSPECTOR Admission History, Adult Entered On: 01/29/2021 23:44 [...] Obtained From : Patient Primary Language : Cypriot Communication Barrier : None Firing Pin Gauger Needed : No Donna Boswell RN - 02/04/2021 16:45 EST Unable to Assess Patient History : Patient unresponsive Patient Arrival Date/Time : 01/29/2021 22:00 EST Legal Guardian : intelligence engineer Zakia GonzalesMacrina cloud RN - 01/29/2021 23:47 [...] Scale Risk Level : 25-45 Medium Risk [place] Fall Interventions : Adequate lighting, Assistive devices [...] Body Mass Index : 52.1 kg/m2 (>HHI) [place] Body Weight : 18 kg Eamon Gonzales [...] Donna Boswell RN - 02/04/2021 16:45 EST Glynn Suicide Severity Rating Scale (C-SSRS) CSSRS Past [...] - 02/04/2021 16:45 EST Electronically signed by [facility], [facility] Conversion Radiology Special Procedure Tech Cerner at 06/22/2022 7:20 PM CDT documented in this encounter Plan of Treatment Not on file documented as of this encounter Visit Diagnoses Not on filedocumented in this encounter
--- OUTSIDE RECORDS SUMMARY | 2024-08-25 10:20 | XMS_ITS | Encounter Summary ---
Author Organization [employer] Address [address] [place] [address] Care Team Providers Care Power Plant Engineer Name Role Phone Unavailable Primary Care Provider Unavailabl e Encounter Details Date Type Department Care Team (Late st Contact Info) Description 01/29/2021 Transcribed Document [facility] [place] [facility] [place] [address] ProviderDick MD [address] [place] [address] Social History Tobacco Use Types Packs/Day [...] - Historical ProviderMD - 01/29/2021 10:00 PM WELCOME DESK AGENT Patient: CISCO CAZARES Age: 75 years Sex: Female : 1945 Associated Diagnoses: None Author: CHRISTIAON CABEZAS, DO-INT Basic Information Source of history: [...]
--- OUTSIDE RECORDS SUMMARY | 2024-08-25 10:20 | XMS_ITS | Encounter Summary ---
Author Organization [employer] Address [address] [place] [address] Care Team Providers Care Hasher Operator Name Role Phone Unavailable Primary Care Provider Unavailabl e Encounter Details Date Type Department Care Team (Late st Contact Info) Description 02/04/2021 Transcribed Document [facility] [place] [address] [place] [address] Social History Tobacco Use Types [...] - Historical ProviderMD - 02/04/2021 10:03 AM SEMICONDUCTOR PROCESSING TECHNICIAN Patient: CISCO CAZARES Age: 75 years Sex: Female : 1945 Associated Diagnoses: None Author: JOLIE PAGAN MD-[facility] Subjective Chief complaint. 02/04/21 awake not in distress Health Status Allergies: Allergic Reactions (Selected) No Known Allergies, Allergies (1) Active Reaction No Known Allergies None Documented Current medications: (Selected) Inpatient Medications Ordered Chloraseptic Menthol 1.4% topical spray: 1 [place], Oral, Q2H, PRN: Sore Throat Core mg, [...] Oral, At Bedtime Lovenox: 30 mg, SubCutaneous, [id number] MiraLax: 17 Gram, Oral, Daily, PRN: Constipation Normal Saline Flush: 10 mL, IV Push, Q12H Normal Saline Flush: 10 mL, IV Push, See Comment, PRN: IV Use Pepcid: 20 mg, Oral, Daily SOLU-Medrol: 40 mg, IV Push, R92TEoj Senokot: 8.6 mg, Oral, BID Tylenol: 650 [...] mL: 100 mg, 50 mL/Hr, IV Piggyback, S09EPni glucagon: 1 mg, IntraMuscular, Q15Min, PRN: Other [...] 0.9% 100 mL 100 mg, IV Piggyback, A87QDxf enoxaparin 30 mg/0.3 ml inj 30 mg 0.3 mL, SubCutaneous, I39PIqj famotidine 20 mg tab 20 mg 1 Tab, Oral, Daily insulin lispro 1 unit/0.01 mL inj Scale C:, SubCutaneous, AC and at Bedtime isosorbide MONOnitrate ER 30 mg tab 90 mg 3 Tab, Oral, Daily lactobacillus acidophilus cap 1 Cap, Oral, BID levothyroxine 100 mcg tab 100 mcg 1 Tab, Oral, Daily methylPREDNISolone SUCCinate 40 mg inj 40 mg, IV Push, J02MIpq piperacillin-tazobactam + NaCl 0.9% 50 mL 2.25 [...] Push, Q4H phenol 1.4% throat spray 1 [place], Oral, Q2H polyethylene glycol 3350 pwd 17 g pkt 17 Gram 1 Packet, Oral, Daily Problem list: Medical Hypertension / SNOMED CT [id number] / Confirmed, Active Problems (1) Hypertension Objective [...] and Plan PEA cardiopulmonary arrest -Occurred at [facility] during a Stress Test with Dr. Zabala [...]
--- OUTSIDE RECORDS SUMMARY | 2024-08-25 10:20 | XMS_ITS | Encounter Summary ---
Author Organization [employer] Address [address] [place] [address] Care Team Providers Care Pattern Designer Name Role Phone Unavailable Primary Care Provider Unavailabl e Encounter Details Date Type Department Care Team (Late st Contact Info) Description 01/30/2021 Transcribed Document [facility] [place] [facility] [place] [address] ProviderDick MD [address] [place] [address] Social History Tobacco Use Types Packs/Day [...] - Historical ProviderMD - 01/30/2021 8:58 AM SPORTS PHYSICIAN Patient: CISCO CAZARES Age: 75 years [...] underwent emergent intubation. She was transferred to [facility] for higher level of care. [...] Other (See Comment) Lovenox: 30 mg, SubCutaneous, [id number] MiraLax: 17 Gram, Oral, Daily, PRN: Constipation [...] mg, 300 mL, 300 mL/Hr, IV Piggyback, Y81VIqg dexmedeTOMIDine injection 400 mcg + NaCl 0.9% for drip 100 mL: TITRATE, IntraVENous doxycycline + Sodium Chloride 0.9% intravenous solution 100 mL: 100 mg, 50 mL/Hr, IV Piggyback, I61KDqm fentaNYL injection 2,000 mcg + Dextrose 5% [...] 0.9% 100 mL 100 mg, IV Piggyback, D85PSwx enoxaparin 30 mg/0.3 ml inj 30 mg 0.3 mL, SubCutaneous, Z40FPrm famotidine 20 mg/2 mL inj 20 mg 2 mL, IV Push, Q12H fludrocortisone 0.1 mg tab 0.1 mg 1 Tab, Oral, Daily insulin regular 1 unit/0.01 mL inj 3mL Scale B, SubCutaneous, Q6H levothyroxine 100 mcg tab 100 mcg 1 Tab, Oral, Daily linezolid *PREMIX* 600 mg 300 mL, IV Piggyback, M68QUaz methylPREDNISolone SUCCinate 40 mg inj 40 mg, [...] Data Available Past Medical History: Active Hypertension ([id number]), Diabetes mellitus type 2 Hypertension Family History: [...] 01/30/2021 06:09 Radiology Results (Last 48 hours) [id number] -- 01/29/2021 22:07 CR Chest 1 Vw [...] caliber andcourse.Basilar predominant extensive bilateral consolidative airspaceopacities. Asbvq-gc-andnnutn bilateral pleural effusions. Nopneumothorax.No mediastinal or axillary lymphadenopathy.No acuteAbdomen findings. Colonic diverticulosis without evidence ofdiverticulitis.IMPRESSION:1. Extensive diffuse bilateral consolidative opacities is consistentmultifocal pneumonia.2. Cqafd-is-shdruagr bilateral pleural effusions. Results review: Labs (Last [...] PEA cardiopulmonary arrest during stress test at [facility]. ROSC unknown (brief per report) Pressor support [...]
--- OUTSIDE RECORDS SUMMARY | 2024-08-25 10:20 | XMS_ITS | Encounter Summary ---
Author Organization [employer] Address [address] [place] [address] Care Team Providers Care Clinical Rehab Specialist Name Role Phone Unavailable Primary Care Provider Unavailabl e Encounter Details Date Type Department Care Team (Late st Contact Info) Description 01/29/2021 Transcribed Document [facility] Pulm & Critical Care Medicine [address] [place] [address] [address] [place] [address] Leti Varela MD [address] [facility] [address] [place] [address] Social History Tobacco Use Types [...]
--- OUTSIDE RECORDS SUMMARY | 2024-08-25 10:20 | XMS_ITS | Encounter Summary ---
Author Organization [employer] Address [address] [place] [address] Care Team Providers Care Sheet Metal Production Worker Name Role Phone Unavailable Primary Care Provider Unavailabl e Encounter Details Date Type Department Care Team (Late st Contact Info) Description 02/04/2021 Transcribed Document [facility] [place] Family Medicine [address] [place] [address] ProviderDick MD [address] [place] [address] Social History Tobacco Use Types [...] - Historical ProviderMD - 02/04/2021 2:21 PM MULTIPLE DRUM SANDER Meds to Bed Enrollment Entered On: 02/04/2021 [...]
--- OUTSIDE RECORDS SUMMARY | 2024-08-25 10:20 | XMS_ITS | Encounter Summary ---
Author Organization [employer] Address [address] [place] [address] Care Team Providers Care Quick Technician Name Role Phone Unavailable Primary Care Provider Unavailabl e Encounter Details Date Type Department Care Team (Late st Contact Info) Description 01/29/2021 Transcribed Document [facility] [place] [facility] [place] [address] ProviderDick MD [facility] [place] [address] Social History Tobacco Use [...] - Historical ProviderMD - 01/29/2021 11:19 PM CERTIFIED ORTHOTIC FITTER Consult Phone Call Documentation Entered On: 01/30/2021 8:44 EST Performed On: 01/29/2021 23:19 EST by Arianna Jenkins [facility] Coord Phone Call for Consults Consult Phone Call/Page Attempt : First call Consult Reason : post cardiac arrest unresponsive Physician Requesting Consult : JAYMIE PAGAN MD-INT Physician Requested for Consult : MENDEZ ATKINS MD-SHANE Provider Service Notified Name : Neurology Consult, Additional Information : called and left voicemail with physician Arianna Jenkins, Critical [facility] Coord - 01/30/2021 8:43 EST Electronically signed by Parviz [facility] Conversion Wool Sampler Cerner at 06/22/2022 7:15 PM CDT documented in this encounter Plan of Treatment Not on file documented as of this encounter Visit Diagnoses Not on filedocumented in this encounter
--- OUTSIDE RECORDS SUMMARY | 2024-08-25 10:20 | XMS_ITS | Encounter Summary ---
Author Organization [employer] Address [address] [place] [address] Care Team Providers Care Optometrist Name Role Phone Unavailable Primary Care Provider Unavailabl e Encounter Details Date Type Department Care Team (Late st Contact Info) Description 02/04/2021 Transcribed Document [facility] [place] Family Medicine [address] [place] [address] ProviderDick MD [address] [place] [address] Social History Tobacco Use Types [...] - Historical ProviderMD - 02/04/2021 5:00 AM CNA Chart Check - Review Order Profile Entered [...]
--- OUTSIDE RECORDS SUMMARY | 2024-08-25 10:21 | XMS_ITS | Encounter Summary ---
Author Organization [employer] Address [address] [place] [address] Care Team Providers Care Cardroom Attendant Name Role Phone Unavailable Primary Care Provider Unavailabl e Encounter Details Date Type Department Care Team (Late st Contact Info) Description 02/03/2021 Transcribed Document [facility] [place] [facility] [place] [address] ProviderDick MD [address] [place] [address] Social History Tobacco Use Types [...] - Historical ProviderMD - 02/03/2021 9:20 AM RESEARCH CHIEF ENGINEER On Going Discharge Planning Entered On: 02/03/2021 9:27 EST Performed On: 02/03/2021 9:20 EST by JANET MADRID, RN-Adult Basic Education InstructorLaw Instructor Progress Note Discharge Arrangements : Patient Post-Acute Information Patient Name: CISCO CAZARES Gender: Female : [birth year] Age: 75 Years No Post-Acute Placement(s) Listed No Post-Acute Service(s) Listed No Curaspan Referral(s) Listed Discharge Options Discussed with Patient : Acute rehabilitation, Home Health, alf JANET MADRID, RN-Adult Basic Education Instructor - 02/03/2021 9:20 EST Narrative Progress Note Narrative Progress Note : HD# 5. elos: 5. RAR: moderate 55 pea arrest during stress test. acute hypoxic resp failure. irene. htn. diabetes. covid 19: negative 01-30 extubated 01-31. bipap 40%/02 2L nc. doxycycline/zosyn iv. solu medrol iv. PT/OT: to chair. ST: taking po. pt resides in [facility]. she lives alone. adl independent. no dme, hh or rehab stays dcp: spoke with Ms. Cazares. discussed rehab: she is agreeable to referrals to [facility]. he ultimate goal would be home with home health. no poa/hcs. single. 1 child. Eunice, daughter, legal next of kin: [phone] spoke with lisseth Moy RN. JANET MADRID, RN-Adult Basic Education Instructor - 02/03/2021 9:20 EST documented in this encounter Plan of Treatment Not on file documented as of this encounter Visit Diagnoses Not on filedocumented in this encounter
--- OUTSIDE RECORDS SUMMARY | 2024-08-25 10:21 | XMS_ITS | Encounter Summary ---
Author Organization [employer] Address [address] [place] [address] Care Team Providers Care Warehouser Name Role Phone Unavailable Primary Care Provider Unavailabl e Encounter Details Date Type Department Care Team (Late st Contact Info) Description 02/05/2021 Transcribed Document [facility] [place] [address] ProviderDick MD [address] [place] [address] Social History Tobacco Use Types [...] - Historical ProviderMD - 02/05/2021 11:27 AM SUPERVISOR PUBLICATIONS PRODUCTION Final Discharge Planning Entered On: 02/05/2021 11:29 EST Performed On: 02/05/2021 11:27 EST by Wong Teague, BRANCH ASSISTANT NON-EXEMPT Final Discharge Planning Discharge Arrangements : Patient Post-Acute Information Patient Name: CISCO CAZARES Gender: Female : [birth year] Age: 75 Years Curaspan Referral(s): Service: Organization: Business Address: Phone Number: Acute Rehab [facility] [address] [place], [address] Patient Offered Choice/Affiliations Explained : [...] : IRF -Inpatient Rehabilitation Facility-62 Wong Teague BRANCH ASSISTANT NON-EXEMPT - 02/05/2021 11:27 EST Final Narrative Note Final Narrative Note : Day 7 of 5 ELOS Moderate readmission risk DC order DC to [facility] for acute rehab [facility] wheelchair van at 1430 Admitted to MED Unit DC Summary will be sent Pt, family, & RN updated has cleared for DC Wong Teague BRANCH ASSISTANT NON-EXEMPT - 02/05/2021 11:27 EST documented in this encounter Plan of Treatment Not on file documented as of this encounter Visit Diagnoses Not on filedocumented in this encounter
--- OUTSIDE RECORDS SUMMARY | 2024-08-25 10:21 | XMS_ITS | Encounter Summary ---
Author Organization [employer] Address [address] [place] [address] Care Team Providers Care Cradle Slide Maker Name Role Phone Unavailable Primary Care Provider Unavailabl e Encounter Details Date Type Department Care Team (Late st Contact Info) Description 02/03/2021 Transcribed Document [facility] [place] Family [place] [facility] [place] [address] ProviderDick MD [address] [place] [address] Social History Tobacco Use Types [...] - Historical ProviderMD - 02/03/2021 7:14 AM PROPERTY INSURANCE CLAIMS EXAMINER Patient: CISCO CAZARES Age: 75 years Sex: Female : 1945 Associated Diagnoses: None Author: NARENDRA JACOBSON MD Subjective Resting in bed. Off nicardipine [...] 0.9% 100 mL 100 mg, IV Piggyback, Q56IOce enoxaparin 30 mg/0.3 ml inj 30 mg 0.3 mL, SubCutaneous, G31SCuc famotidine 20 mg tab 20 mg 1 Tab, Oral, Daily insulin lispro 1 unit/0.01 mL inj Scale C:, SubCutaneous, AC and at Bedtime isosorbide MONOnitrate ER 30 mg tab 90 mg 3 Tab, Oral, Daily lactobacillus acidophilus cap 1 Cap, Oral, BID levothyroxine 100 mcg tab 100 mcg 1 Tab, Oral, Daily methylPREDNISolone SUCCinate 40 mg inj 40 mg, IV Push, Z92KDwe piperacillin-tazobactam + NaCl 0.9% 50 mL 2.25 [...] Push, Q4H phenol 1.4% throat spray 1 [place], Oral, Q2H polyethylene glycol 3350 pwd 17 [...] 26.1 \ Radiology Results (Last 48 hours) [id number] -- 01/29/2021 22:07 CR Abdomen 1 Vw [...] PEA cardiopulmonary arrest during stress test at [facility] 01/29/21 ROSC unknown (brief per report) Pressor [...]
--- OUTSIDE RECORDS SUMMARY | 2024-08-25 10:21 | XMS_ITS | Encounter Summary ---
Author Organization [employer] i[employer] Address [address] [place] [address] Care Team Providers Care Blue Leather Setter Name Role Phone Unavailable Primary Care Provider Unavailabl e Encounter Details Date Type Department Care Team (Late st Contact Info) Description 02/03/2021 Transcribed Document [facility] Pulm & Critical Care Medicine [address] [place] [address] [address] [place] [address] Modesto Lui MD [address] [facility] [address] [place] [address] Social History Tobacco Use Types [...] for atrial fibrillation. Patient was transferred to [facility] for further evaluation and higher [...] Ordered Chloraseptic Menthol 1.4% topical spray: 1 [place], Oral, Q2H, PRN: Sore Throat Core mg, [...] Oral, At Bedtime Lovenox: 30 mg, SubCutaneous, Q30VMge MiraLax: 17 Gram, Oral, Daily, PRN: Constipation NORepinephrine injection 8 mg + NaCl 0.9% for drip 250 mL: TITRATE, IntraVENous Normal Saline Flush: 10 mL, IV Push, Q12H Normal Saline Flush: 10 mL, IV Push, See Comment, PRN: IV Use Pepcid: 20 mg, Oral, Daily SOLU-Medrol: 40 mg, IV Push, H90ODqs Senokot: 8.6 mg, Oral, BID Tylenol: 650 [...] mL: 100 mg, 50 mL/Hr, IV Piggyback, T20WWul glucagon: 1 mg, IntraMuscular, Q15Min, PRN: Other [...] 0.9% 100 mL 100 mg, IV Piggyback, L20KIuv enoxaparin 30 mg/0.3 ml inj 30 mg 0.3 mL, SubCutaneous, B24CTvn famotidine 20 mg tab 20 mg 1 Tab, Oral, Daily insulin lispro 1 unit/0.01 mL inj Scale C:, SubCutaneous, AC and at Bedtime isosorbide MONOnitrate ER 30 mg tab 90 mg 3 Tab, Oral, Daily lactobacillus acidophilus cap 1 Cap, Oral, BID levothyroxine 100 mcg tab 100 mcg 1 Tab, Oral, Daily methylPREDNISolone SUCCinate 40 mg inj 40 mg, IV Push, I90WYvj piperacillin-tazobactam + NaCl 0.9% 50 mL 2.25 [...] Push, Q4H phenol 1.4% throat spray 1 [place], Oral, Q2H polyethylene glycol 3350 pwd 17 g pkt 17 Gram 1 Packet, Oral, Daily Problem list: Medical Hypertension / SNOMED CT 14993052 / Confirmed, Active Problems (1) Hypertension Physical [...] 29) . Radiology Results (Last 48 hours) [id number] -- 01/29/2021 22:07 CR Abdomen 1 Vw [...] [facility] 01/29 1600 Acute encephalopathy/resolved . PLAN: Supplemental [...]
--- OUTSIDE RECORDS SUMMARY | 2024-08-25 10:21 | XMS_ITS | Encounter Summary ---
Author Organization [employer] Address [address] [place] [address] Care Team Providers Care Unishear Operator Name Role Phone Unavailable Primary Care Provider Unavailabl e Encounter Details Date Type Department Care Team (Late st Contact Info) Description 02/05/2021 Transcribed Document [facility] [place] [facility] [address] [place] [address] Social History Tobacco Use Types [...] - Historical ProviderMD - 02/05/2021 4:44 PM CERTIFIED MEDICAL BILLER Discharge Summary, PT Entered On: 02/05/2021 16:46 EST Performed On: 02/05/2021 16:44 EST by ROBERTA HILL, PT Discharge Summary Discharge Summary Provider Notified : Physical Therapy Reason for Discharge : Discharged from hospital Discharged to, Therapy : Unit, halfway Discharge Summary Comment, PT : pt last [...] ROBERTA HILL, PT - 02/05/2021 16:44 EST Licensing Worker Goals Mobility/Bed Mobility LTG PT Grid Goal [...]
--- OUTSIDE RECORDS SUMMARY | 2024-08-25 10:21 | XMS_ITS | Encounter Summary ---
Author Organization [employer] i[employer] Address [address] [place] [address] Care Team Providers Care Mail Forwarding System Markup Clerk Name Role Phone Unavailable Primary Care Provider Unavailabl e Encounter Details Date Type Department Care Team (Late st Contact Info) Description 01/31/2021 Transcribed Document [facility] Cardiology [address] [place] [address] Josue Fischer MD [address] [facility] [address] [place] [address] Social History Tobacco Use Types Packs/Day Years [...] Author: JOSUE FISCHER MD-CAR BASIC PCP: Primary Wealth Management Consultant: None Subjective NAD Health Status Allergies: Allergic [...] Oral, At Bedtime Lovenox: 30 mg, SubCutaneous, A79MWep MiraLax: 17 Gram, Oral, Daily, PRN: Constipation [...] mg, 300 mL, 300 mL/Hr, IV Piggyback, I41XNgb dexmedeTOMIDine injection 400 mcg + NaCl 0.9% for drip 100 mL: TITRATE, IntraVENous docusate sodium: 100 mg, Oral, BID doxycycline + Sodium Chloride 0.9% intravenous solution 100 mL: 100 mg, 50 mL/Hr, IV Piggyback, G08YNdt fentaNYL injection 2,000 mcg + Dextrose 5% [...] 0.9% 100 mL 100 mg, IV Piggyback, B93PYzd enoxaparin 30 mg/0.3 ml inj 30 mg 0.3 mL, SubCutaneous, I26PHaz famotidine 20 mg/2 mL inj 20 mg 2 mL, IV Push, Q12H insulin regular 1 unit/0.01 mL inj 3mL Scale B, SubCutaneous, Q6H lactobacillus acidophilus cap 1 Cap, Oral, BID levothyroxine 100 mcg tab 100 mcg 1 Tab, Oral, Daily linezolid *PREMIX* 600 mg 300 mL, IV Piggyback, O16GFwl methylPREDNISolone SUCCinate 40 mg inj 40 mg, [...] list: All Problems Hypertension / SNOMED CT [id number] / Confirmed, Active Problems (1) Hypertension Objective [...] (Current Encounter/Past 24 Hours) ProBNP 2987 pg/mL TN 01/30/2021 07:24 Radiology Results (Last 48 hours) [id number] -- 01/29/2021 22:07 CR Chest 1 Vw [...] caliber andcourse.Basilar predominant extensive bilateral consolidative airspaceopacities. Mzrky-tc-vsgrqagp bilateral pleural effusions. Nopneumothorax.No mediastinal or axillary lymphadenopathy.No acuteAbdomen findings. Colonic diverticulosis without evidence ofdiverticulitis.IMPRESSION:1. Extensive diffuse bilateral consolidative opacities is consistentmultifocal pneumonia.2. Ujzfa-fp-pbyhcvwz bilateral pleural effusions. CR Chest 1 Vw [...] PEA cardiopulmonary arrest during stress test at [facility]. ROSC unknown (brief per report) Pressor [...]
--- OUTSIDE RECORDS SUMMARY | 2024-08-25 10:21 | XMS_ITS | Encounter Summary ---
Author Organization [employer] Address [address] [place] [address] Care Team Providers Care Shot Hole Driller Name Role Phone Unavailable Primary Care Provider Unavailabl e Encounter Details Date Type Department Care Team (Late st Contact Info) Description 02/03/2021 Transcribed Document [facility] [place] [facility] [place] [address] ProviderDick MD [facility] [place] [address] Social History Tobacco Use Types [...] - Historical ProviderMD - 02/03/2021 6:36 PM PARTS ROOM CLERK Event Note Entered On: 02/03/2021 18:37 EST [...] pt earlier in shift; no changes. Miri Mosqueda RN-Resource - 02/03/2021 18:36 EST documented in this encounter Plan of Treatment Not on file documented as of this encounter Visit Diagnoses Not on filedocumented in this encounter
--- OUTSIDE RECORDS SUMMARY | 2024-08-25 10:21 | XMS_ITS | Encounter Summary ---
Author Organization [employer] Address [address] [place] [address] Care Team Providers Care Spike Machine Feeder Name Role Phone Unavailable Primary Care Provider Unavailabl e Encounter Details Date Type Department Care Team (Late st Contact Info) Description 02/03/2021 Transcribed Document [facility] [place] Medicine [facility] [place] [address] ProviderDick [place] [facility] [address] Social History Tobacco Use Types [...] Historical ProviderMD - 02/03/2021 5:54 PM MULTIMEDIA PROGRAMMER Patient: CISCO CAZARES Age: 75 years Sex: Female : 1945 Associated Diagnoses: None Author: JOLIE PAGAN MD-[facility] Subjective Chief complaint. 02/03/21 awake not in distress Health Status Allergies: Allergic Reactions (Selected) No Known Allergies, Allergies (1) Active Reaction No Known Allergies None Documented Current medications: (Selected) Inpatient Medications Ordered Chloraseptic Menthol 1.4% topical spray: 1 [place], Oral, Q2H, PRN: Sore Throat Core mg, [...] Oral, At Bedtime Lovenox: 30 mg, SubCutaneous, A46AMoi MiraLax: 17 Gram, Oral, Daily, PRN: Constipation NORepinephrine injection 8 mg + NaCl 0.9% for drip 250 mL: TITRATE, IntraVENous Normal Saline Flush: 10 mL, IV Push, Q12H Normal Saline Flush: 10 mL, IV Push, See Comment, PRN: IV Use Pepcid: 20 mg, Oral, Daily SOLU-Medrol: 40 mg, IV Push, H58PFpq Senokot: 8.6 mg, Oral, BID Tylenol: 650 [...] mL: 100 mg, 50 mL/Hr, IV Piggyback, V61ZHrh glucagon: 1 mg, IntraMuscular, Q15Min, PRN: Other [...] 0.9% 100 mL 100 mg, IV Piggyback, G85WHta enoxaparin 30 mg/0.3 ml inj 30 mg 0.3 mL, SubCutaneous, W41YAza famotidine 20 mg tab 20 mg 1 Tab, Oral, Daily insulin lispro 1 unit/0.01 mL inj Scale C:, SubCutaneous, AC and at Bedtime isosorbide MONOnitrate ER 30 mg tab 90 mg 3 Tab, Oral, Daily lactobacillus acidophilus cap 1 Cap, Oral, BID levothyroxine 100 mcg tab 100 mcg 1 Tab, Oral, Daily methylPREDNISolone SUCCinate 40 mg inj 40 mg, IV Push, H69TTcy piperacillin-tazobactam + NaCl 0.9% 50 mL 2.25 [...] Push, Q4H phenol 1.4% throat spray 1 [place], Oral, Q2H polyethylene glycol 3350 pwd 17 g pkt 17 Gram 1 Packet, Oral, Daily Problem list: Medical Hypertension / SNOMED CT [id number] / Confirmed, Active Problems (1) Hypertension Objective [...] and Plan PEA cardiopulmonary arrest -Occurred at [facility] during a Stress Test with [...] spent 28 min Electronically signed by Parviz, [facility] Conversion Plastic Maker Cerner at 06/22/2022 7:32 PM CDT documented in this encounter Plan of Treatment Not on file documented as of this encounter Visit Diagnoses Not on filedocumented in this encounter
--- OUTSIDE RECORDS SUMMARY | 2024-08-25 10:21 | XMS_ITS | Encounter Summary ---
Author Organization [employer] Address [address] [place] [address] Care Team Providers Care Reporter Anchor Name Role Phone Unavailable Primary Care Provider Unavailabl e Encounter Details Date Type Department Care Team (Late st Contact Info) Description 02/04/2021 Transcribed Document [facility] [place] [facility] [place] [address] ProviderDick MD [address] [place] [address] Social History Tobacco Use Types [...] - Historical ProviderMD - 02/04/2021 6:43 AM FRONT END UI DEVELOPER Patient: CISCO CAZARES Age: 75 years [...] 0.9% 100 mL 100 mg, IV Piggyback, C72NOmh enoxaparin 30 mg/0.3 ml inj 30 mg 0.3 mL, SubCutaneous, V22PHyq famotidine 20 mg tab 20 mg 1 Tab, Oral, Daily insulin lispro 1 unit/0.01 mL inj Scale C:, SubCutaneous, AC and at Bedtime isosorbide MONOnitrate ER 30 mg tab 90 mg 3 Tab, Oral, Daily lactobacillus acidophilus cap 1 Cap, Oral, BID levothyroxine 100 mcg tab 100 mcg 1 Tab, Oral, Daily methylPREDNISolone SUCCinate 40 mg inj 40 mg, IV Push, S61VTmz piperacillin-tazobactam + NaCl 0.9% 50 mL 2.25 [...] Push, Q4H phenol 1.4% throat spray 1 [place], Oral, Q2H polyethylene glycol 3350 pwd 17 [...] 28.5 \ Radiology Results (Last 48 hours) [id number] -- 01/29/2021 22:07 CR Chest 1 Vw [...] PEA cardiopulmonary arrest during stress test at [facility] 01/29/21 ROSC unknown (brief per [...] current cardiac medications. Eventual Ischemic evaluation with [facility] once renal function recovers. 02/03/2021 Blood pressure [...]
--- OUTSIDE RECORDS SUMMARY | 2024-08-25 10:21 | XMS_ITS | Encounter Summary ---
Author Organization [employer] Address [address] [place] [address] Care Team Providers Care Hemodialysis Lab Technician Name Role Phone Unavailable Primary Care Provider Unavailabl e Encounter Details Date Type Department Care Team (Late st Contact Info) Description 01/30/2021 Transcribed Document [facility] Pulm & Critical Care Medicine [address] [place] [address] [address] [place] [address] Bianka [place] MD [address] [facility] [address] [place] [address] Social History Tobacco Use Types [...] Oral, At Bedtime Lovenox: 30 mg, SubCutaneous, D63VVkt MiraLax: 17 Gram, Oral, Daily, PRN: Constipation [...] mg, 300 mL, 300 mL/Hr, IV Piggyback, U14NDjt dexmedeTOMIDine injection 400 mcg + NaCl 0.9% for drip 100 mL: TITRATE, IntraVENous doxycycline + Sodium Chloride 0.9% intravenous solution 100 mL: 100 mg, 50 mL/Hr, IV Piggyback, L86XUiy fentaNYL injection 2,000 mcg + Dextrose 5% [...] 0.9% 100 mL 100 mg, IV Piggyback, G79ICnz enoxaparin 30 mg/0.3 ml inj 30 mg 0.3 mL, SubCutaneous, M25OPmn famotidine 20 mg/2 mL inj 20 mg 2 mL, IV Push, Q12H fludrocortisone 0.1 mg tab 0.1 mg 1 Tab, Oral, Daily insulin regular 1 unit/0.01 mL inj 3mL Scale B, SubCutaneous, Q6H levothyroxine 100 mcg tab 100 mcg 1 Tab, Oral, Daily linezolid *PREMIX* 600 mg 300 mL, IV Piggyback, U34RIfk methylPREDNISolone SUCCinate 40 mg inj 40 mg, [...] Problem list: Medical Hypertension / SNOMED CT 29041410 / Confirmed, Active Problems (1) Hypertension Physical [...] 29) . Radiology Results (Last 48 hours) [id number] -- 01/29/2021 22:07 CR Chest 1 Vw [...] caliber andcourse.Basilar predominant extensive bilateral consolidative airspaceopacities. Bgdgz-fa-yzdhyiqp bilateral pleural effusions. Nopneumothorax.No mediastinal or axillary lymphadenopathy.No acuteAbdomen findings. Colonic diverticulosis without evidence ofdiverticulitis.IMPRESSION:1. Extensive diffuse bilateral consolidative opacities is consistentmultifocal pneumonia.2. Cawpi-py-xovylvvv bilateral pleural effusions. CT scan of the [...] aspiration Non smoker Cardiovascular PEA arrest at [facility], unknown time, brief - most probable respiratory [...] CT head with no acute abnormalities at [facility] 01/29 1600 Acute encephalopathy/improved patient is responding. [...] are: Patient experienced brief cardiopulmonary arrest at [facility]. I believe given the provided information this was most likely a hypoxemic/respiratory arrest. The code was documented at approximately 1500. Patient had CT scan of the head that was negative for intracranial abnormality. She does have bilateral infiltrates consistent with pneumonia probable aspiration. Patient was transferred to [facility] for further evaluation. Patient was examined and [...]
--- OUTSIDE RECORDS SUMMARY | 2024-08-25 10:21 | XMS_ITS | Encounter Summary ---
Author Organization [employer] Address [address] [place] [address] Care Team Providers Care Gas Transfer Operator Name Role Phone Unavailable Primary Care Provider Unavailabl e Encounter Details Date Type Department Care Team (Late st Contact Info) Description 02/05/2021 Transcribed Document [facility] [place] Family Medicine [facility] [place] [address] ProviderDick MD [address] [place] [address] Social History Tobacco Use [...] - Historical ProviderMD - 02/05/2021 1:23 PM LABOR RELATIONS SUPERVISOR Patient Education Materials Follows: Hypertension, Adult High [...] provider. This is important. Medicines ??? Take cuco-hcg-lfybglq and prescription medicines only as told by [...] provider. Document Revised: 11/02/2018 Document Reviewed: 11/02/2018 [employer] Patient Education ? 2020 [employer] Neurology Weakness Weakness is a lack [...] Consider working with a physical therapist or call center trainer who can develop an exercise plan to help you gain muscle strength. General instructions ??? Take pyis-efe-fpgyzjh and prescription medicines only as told by [...] provider. Document Revised: 09/28/2018 Document Reviewed: 09/28/2018 [employer] Patient Education ? 2020 [employer]. Pulmonary Medicine Acute Respiratory Distress Syndrome, Adult [...] these instructions at home: Medicines ??? Take rgbs-bld-oyunctn and prescription medicines only as told by [...] important. Where to find more information ??? [place] [employer]: https://www.lung.org/ ??? ARDS Foundation: https://ardsglobal.org/ [...] provider. Document Revised: 04/08/2020 Document Reviewed: 03/21/2020 [employer] Patient Education ? 2020 [employer]. Acute Respiratory Failure, Adult Acute respiratory failure [...] these instructions at home: Medicines ??? Take hstj-wed-hlxdvhe and prescription medicines only as told by [...] breathe, such as a ventilator. ??? Take uhwm-lfh-kggxbdi and prescription medicines only as told by your health care provider. ??? Contact a health care provider if your symptoms do not improve or if they get worse. This information is not intended to replace advice given to you by your health care provider. Make sure you discuss any questions you have with your health care provider. Document Revised: 02/09/2020 Document Reviewed: 02/09/2020 [employer] Patient Education ? 2020 [employer]. documented in this encounter Plan of Treatment Not on file documented as of this encounter Visit Diagnoses Not on filedocumented in this encounter
--- OUTSIDE RECORDS SUMMARY | 2024-08-25 10:21 | XMS_ITS | Encounter Summary ---
Author Organization [employer] Address [address] [place] [address] Care Team Providers Care Bulk Mail Clerk Name Role Phone Unavailable Primary Care Provider Unavailabl e Encounter Details Date Type Department Care Team (Late st Contact Info) Description 01/30/2021 Transcribed Document [facility] [place] Family Medicine [address] [place] [address] ProviderDick MD [address] [place], [place] [...] - Historical Provider, - 01/30/2021 8:04 AM GRINDING SUPERVISOR Therapy Screen, OT Entered On: 01/30/2021 8:05 [...]
--- OUTSIDE RECORDS SUMMARY | 2024-08-25 10:21 | XMS_ITS | Referral Summary ---
Author Organization [employer] Address [address] [place] [address] Care Team Providers Care Ice Skating Teacher Name Role Phone Unavailable Primary Care [...]
--- OUTSIDE RECORDS SUMMARY | 2024-08-25 10:21 | XMS_ITS | Encounter Summary ---
Author Organization [employer] iatives Address [address] [place] [address] Care Team Providers Care Color Adviser Name Role Phone Unavailable Primary Care Provider Unavailabl e Encounter Details Date Type Department Care Team (Late st Contact Info) Description 01/31/2021 Transcribed Document [facility] Pulm & Critical Care Medicine [address] [place] [address] [address] [place] [address] Bianka Chow MD [address] [facility] [address] [place] [address] Social History Tobacco Use Types [...] for atrial fibrillation. Patient was transferred to [facility] for further evaluation and higher level [...] Oral, At Bedtime Lovenox: 30 mg, SubCutaneous, L69FAzk MiraLax: 17 Gram, Oral, Daily, PRN: Constipation [...] mg, 300 mL, 300 mL/Hr, IV Piggyback, V25ZHyr dexmedeTOMIDine injection 400 mcg + NaCl 0.9% for drip 100 mL: TITRATE, IntraVENous docusate sodium: 100 mg, Oral, BID doxycycline + Sodium Chloride 0.9% intravenous solution 100 mL: 100 mg, 50 mL/Hr, IV Piggyback, K72VRdi fentaNYL injection 2,000 mcg + Dextrose 5% [...] 0.9% 100 mL 100 mg, IV Piggyback, G56NHof enoxaparin 30 mg/0.3 ml inj 30 mg 0.3 mL, SubCutaneous, Z33KBio famotidine 20 mg/2 mL inj 20 mg 2 mL, IV Push, Q12H insulin regular 1 unit/0.01 mL inj 3mL Scale B, SubCutaneous, Q6H lactobacillus acidophilus cap 1 Cap, Oral, BID levothyroxine 100 mcg tab 100 mcg 1 Tab, Oral, Daily linezolid *PREMIX* 600 mg 300 mL, IV Piggyback, N67VKkm methylPREDNISolone SUCCinate 40 mg inj 40 mg, [...] Problem list: Medical Hypertension / SNOMED CT 12101399 / Confirmed, Active Problems (1) Hypertension Physical [...] 29) . Radiology Results (Last 48 hours) [id number] -- 01/29/2021 22:07 CR Chest 1 Vw [...] caliber andcourse.Basilar predominant extensive bilateral consolidative airspaceopacities. Kmjyt-qq-cbsscrds bilateral pleural effusions. Nopneumothorax.No mediastinal or axillary lymphadenopathy.No acuteAbdomen findings. Colonic diverticulosis without evidence ofdiverticulitis.IMPRESSION:1. Extensive diffuse bilateral consolidative opacities is consistentmultifocal pneumonia.2. Sjyfs-sr-cpjekkyr bilateral pleural effusions. CR Chest 1 Vw [...] head with no acute abnormalities at [facility] 01/29 1600 Acute encephalopathy/improved patient is [...] Patient experienced brief cardiopulmonary arrest at [facility]. I believe given the provided information this was most likely a hypoxemic/respiratory arrest. The code was documented at approximately 1500. Patient had CT scan of the head that was negative for intracranial abnormality. She does have bilateral infiltrates consistent with pneumonia probable aspiration. Patient was transferred to [facility] for further evaluation. pt is following [...]
--- OUTSIDE RECORDS SUMMARY | 2024-08-25 10:21 | XMS_ITS | Encounter Summary ---
Author Organization [employer] iatives Address [address] [place] [address] Care Team Providers Care Netsuite Consultant Name Role Phone Unavailable Primary Care Provider Unavailabl e Encounter Details Date Type Department Care Team (Late st Contact Info) Description 02/04/2021 Transcribed Document [facility] [place] [address] ProviderDick MD [address] [place] [address] Social History Tobacco Use Types [...] - Historical ProviderMD - 02/04/2021 6:11 PM MICROBIOLOGY COORDINATOR Patient: CISCO CAZARES Age: 75 Years Sex: [...] hypertension. She reports that she lives in [place] and she can do outpatient nephrology clinic follow-up in [facility]. She reports good progress with physical therapy. -Recommend avoiding REJI inhibitor until her kidney function stabilizes especially with her history of hyperkalemia. -I've asked the nursing staff to coordinate outpatient nephrology follow-up with [facility] nephrology in [facility]. Or she can follow-up with me in [place]. Franck Huang MD -Nephrology Note dictated with Go800 voice recognition system Partner with Dr. Razo, Dr. Rodriguez and Dr. Shay Medications amLODIPine, 10 mg= 1 Tab, Oral, Daily Chloraseptic Menthol 1.4% topical spray, 1 [place], Oral, Q2H, PRN cloNIDine, 0.1 mg= 1 [...] Bedtime Lovenox, 30 mg= 0.3 mL, SubCutaneous, T18MDvn methylPREDNISolone sodium succinate, 40 mg= 1 mL, [...] Lymph # 1.43 x10(3)/uL 02/04/2021 05:50 EST [place] % 10.2 % (High) 02/04/2021 05:50 EST [place] # 0.96 K/uL 02/04/2021 05:50 EST Eos [...] (High) 02/04/2021 05:50 EST Electronically signed by [facility], [facility] Conversion Light Cleaner Cerner at 06/22/2022 7:35 PM CDT documented in this encounter Plan of Treatment Not on file documented as of this encounter Visit Diagnoses Not on filedocumented in this encounter
--- OUTSIDE RECORDS SUMMARY | 2024-08-25 10:21 | XMS_ITS | Encounter Summary ---
Author Organization [employer] i[employer] Address [address] [place] [address] Care Team Providers Care Line Service Supervisor Name Role Phone Unavailable Primary Care Provider Unavailabl e Encounter Details Date Type Department Care Team (Late st Contact Info) Description 01/31/2021 Transcribed Document [facility] [place] [address] ProviderDick MD [place] [address] Social History Tobacco Use Types [...] - Historical ProviderMD - 01/31/2021 10:48 AM LACING STRING CUTTER Patient: CISCO CAZARES Age: 75 years Sex: Female : 1945 Associated Diagnoses: None Author: JOLIE PAGAN MD-[facility] Subjective Chief complaint. 01/31/21 on [...] Oral, At Bedtime Lovenox: 30 mg, SubCutaneous, X76AAvu MiraLax: 17 Gram, Oral, Daily, PRN: Constipation [...] mg, 300 mL, 300 mL/Hr, IV Piggyback, S92NIqr dexmedeTOMIDine injection 400 mcg + NaCl 0.9% for drip 100 mL: TITRATE, IntraVENous docusate sodium: 100 mg, Oral, BID doxycycline + Sodium Chloride 0.9% intravenous solution 100 mL: 100 mg, 50 mL/Hr, IV Piggyback, K11DFoe fentaNYL injection 2,000 mcg + Dextrose 5% [...] 0.9% 100 mL 100 mg, IV Piggyback, R04QRjo enoxaparin 30 mg/0.3 ml inj 30 mg 0.3 mL, SubCutaneous, R06HTqz famotidine 20 mg/2 mL inj 20 mg 2 mL, IV Push, Q12H insulin regular 1 unit/0.01 mL inj 3mL Scale B, SubCutaneous, Q6H lactobacillus acidophilus cap 1 Cap, Oral, BID levothyroxine 100 mcg tab 100 mcg 1 Tab, Oral, Daily linezolid *PREMIX* 600 mg 300 mL, IV Piggyback, G41POal methylPREDNISolone SUCCinate 40 mg inj 40 mg, [...] Problem list: Medical Hypertension / SNOMED CT 19064906 / Confirmed, Active Problems (1) Hypertension Objective [...] and Plan PEA cardiopulmonary arrest -Occurred at [facility] during a Stress Test with [...]
--- OUTSIDE RECORDS SUMMARY | 2024-08-25 10:21 | XMS_ITS | Encounter Summary ---
Author Organization [employer] Address [address] [place] [address] Care Team Providers Care Tobacco Packing Machine Operator Name Role Phone Unavailable Primary Care Provider Unavailabl e Encounter Details Date Type Department Care Team (Late st Contact Info) Description 02/04/2021 Transcribed Document [facility] Family Medicine [facility] [place] [address] ProviderDick MD [facility] [place] [address] Social History Tobacco Use Types [...] - Historical ProviderMD - 02/04/2021 3:00 AM INSULATOR APPRENTICE Nutrition Assessment Entered On: 02/04/2021 11:01 EST Performed On: 02/04/2021 15:23 EST by TAYLOR HERNANDEZ RD, LD Nutrition Assessment Current Nutrition Regimen Comment : 02/04: High f/u. Spoke with pt; [facility], but [...] 31.5 IBW: 110#, 156% Est nutrient needs: [id number] kcals (14-16 kcal/kg), 90-100g pro (1.2 g/kg [...]
--- OUTSIDE RECORDS SUMMARY | 2024-08-25 10:21 | XMS_ITS | Encounter Summary ---
Author Organization [employer] iatives Address [address] [place] [address] Care Team Providers Care Video Producer Name Role Phone Unavailable Primary Care Provider Unavailabl e Encounter Details Date Type Department Care Team (Late st Contact Info) Description 02/04/2021 Transcribed Document [facility] [place] Family Medicine [facility] [place] [address] ProviderDick MD [address] [place] [address] Social History Tobacco Use Types Packs/Day [...] - Historical ProviderMD - 02/04/2021 10:37 AM IN STORE BANKER Patient: CISCO NIELSEN Age: 75 years Sex: [...] for atrial fibrillation. Patient was transferred to [facility] for further evaluation and higher level [...] Ordered Chloraseptic Menthol 1.4% topical spray: 1 [place], Oral, Q2H, PRN: Sore Throat Core mg, [...] Oral, At Bedtime Lovenox: 30 mg, SubCutaneous, Y21PBmx MiraLax: 17 Gram, Oral, Daily, PRN: Constipation Normal Saline Flush: 10 mL, IV Push, Q12H Normal Saline Flush: 10 mL, IV Push, See Comment, PRN: IV Use Pepcid: 20 mg, Oral, Daily SOLU-Medrol: 40 mg, IV Push, X35SEkz Senokot: 8.6 mg, Oral, BID Tylenol: 650 [...] mL: 100 mg, 50 mL/Hr, IV Piggyback, C52BKwt glucagon: 1 mg, IntraMuscular, Q15Min, PRN: Other [...] 0.9% 100 mL 100 mg, IV Piggyback, Y95WZwi enoxaparin 30 mg/0.3 ml inj 30 mg 0.3 mL, SubCutaneous, T60JSsv famotidine 20 mg tab 20 mg 1 Tab, Oral, Daily insulin lispro 1 unit/0.01 mL inj Scale C:, SubCutaneous, AC and at Bedtime isosorbide MONOnitrate ER 30 mg tab 90 mg 3 Tab, Oral, Daily lactobacillus acidophilus cap 1 Cap, Oral, BID levothyroxine 100 mcg tab 100 mcg 1 Tab, Oral, Daily methylPREDNISolone SUCCinate 40 mg inj 40 mg, IV Push, W70ZAip piperacillin-tazobactam + NaCl 0.9% 50 mL 2.25 [...] Push, Q4H phenol 1.4% throat spray 1 [place], Oral, Q2H polyethylene glycol 3350 pwd 17 g pkt 17 Gram 1 Packet, Oral, Daily Problem list: All Problems Hypertension / SNOMED CT 93797306 / Confirmed, Active Problems (1) Hypertension Physical [...] 29) . Radiology Results (Last 48 hours) [id number] -- 01/29/2021 22:07 CR Chest 1 Vw [...]
--- OUTSIDE RECORDS SUMMARY | 2024-08-25 10:21 | XMS_ITS | Encounter Summary ---
Author Organization [employer] Address [address] [place] [address] Care Team Providers Care Wheel And Pinion Inspector Name Role Phone Unavailable Primary Care Provider Unavailabl e Encounter Details Date Type Department Care Team (Late st Contact Info) Description 02/03/2021 Transcribed Document [facility] [place] [facility] [place] [address] ProviderDick MD [address] [place] [address] Social History Tobacco Use Types [...] - Historical ProviderMD - 02/03/2021 5:05 PM BOOKMAKER'S CLERK Patient: CISCO CAZARES Age: 75 Years Sex: [...] Rodriguez and Dr. Malin Note dictated with Real Savvy recognition system Medications amLODIPine, 10 mg= 1 Tab, Oral, Daily Chloraseptic Menthol 1.4% topical spray, 1 [place], Oral, Q2H, PRN cloNIDine, 0.1 mg= 1 [...] Bedtime Lovenox, 30 mg= 0.3 mL, SubCutaneous, Z32LIii MiraLax, 17 Gram= 1 Packet, Oral, Daily, [...] Oral, BID SOLU-Medrol, 40 mg, IV Push, Q31HDfn Tylenol, 650 mg= 2 Tab, Oral, Q4H, [...] Man 6 % (Low) 02/03/2021 02:45 EST [place] Percent Man 6 % (High) 02/03/2021 02:45 [...] 02/03/2021 03:07 EST Electronically signed by [facility] Conversion Cardiac Catheterization Technologist Cerner at 06/22/2022 7:33 PM CDT documented in this encounter Plan of Treatment Not on file documented as of this encounter Visit Diagnoses Not on filedocumented in this encounter
--- OUTSIDE RECORDS SUMMARY | 2024-08-25 10:21 | XMS_ITS | Clinical Summary ---
Author Organization [facility] Address [address] [facility] [address] [place] [address] Phone Care Team Providers Care Tractor Sweeper Driver Name Role Phone Unavailable Unavailable Conditions or Problems No information available. Medications No information available. Medications Administered No information available. Allergies, Adverse Reactions, Alerts No information available. Results No information available. Plan of Care No information available. Procedures No information available. Vital Signs No information available. Immunizations No information available. Advance Directives No information available.
--- OUTSIDE RECORDS SUMMARY | 2024-08-25 10:21 | XMS_ITS | Encounter Summary ---
Author Organization [employer] i[employer] Address [address] [place] [address] Care Team Providers Care Fabrication Machine Operator Name Role Phone Unavailable Primary Care Provider Unavailabl e Encounter Details Date Type Department Care Team (Late st Contact Info) Description 02/03/2021 Transcribed Document [facility] Family Medicine [facility] [place] [address] ProviderDick MD [address] [place] [address] Social History Tobacco Use Types Packs/Day [...] - Historical ProviderMD - 02/03/2021 9:05 AM WARP KNIT OPERATOR Patient: CISCO CAZARES Age: 75 years Sex: Female : 1945 Associated Diagnoses: None Author: WINSTON NUÑEZ MD-INF Basic Information CC: Sepsis, probable aspiration pneumonia History of Present Illness 75 yo female with h/o T2DM, HLD, hypothyroidism, and HTN who presented to [facility] on 01/29/21 by transfer from [facility] for cardiology evaluation. The patient was getting [...] creatinine of 1.9. She was transferred to [facility]. On arrival on 01/29, her Tlow was [...] 100 - 100 mg, IV Piggyback, Inj, U12YWox, infuse over 2 Hour(s), order duration: 7 Day(s), Routine Immunology methylPREDNISolone (SOLU-Medrol) - 40 mg, IV Push, Inj, X10GHix, Routine Anticoagulant enoxaparin (Lovenox) - 30 mg, SubCutaneous, Inj, M62ATqd Cardiovascular NORepinephrine 8 mg + Sodium Chloride [...] (Chloraseptic Menthol 1.4% topical spray) - 1 [place], Oral, [place], Q2H, PRN for Sore Throat, Routine Vitamins [...] No tenderness, No deformity. Integumentary: Warm, Dry, [place], No rash. Neurologic: Alert, No focal deficits, [...] 29) , Radiology Results (Last 48 hours) [id number] -- 01/29/2021 22:07 CR Abdomen 1 Vw [...] Contreras.Transcribed by Tricia Peck PA-C. , ACC: [id number] ORDER: Culture MRSA Surveillance DATE: 02/01/2021 09:11 SOURCE: Nasal SITE: Reports Final 02/02/2021 12:55 No MRSA isolated For Infection Control surveillance only. == ACC: [id number] ORDER: Culture Bronch Wash and Stain DATE: 01/30/2021 10:46 SOURCE: Right Lower Lobe SITE: Reports Final 02/01/2021 09:52 No growth Pre 01/31/2021 07:02 No growth GS 01/30/2021 14:00 No organisms seen. Few White Blood Cells == ACC: [id number] ORDER: Culture Sputum and Stain DATE: 01/29/2021 23:26 SOURCE: Tracheal Aspirate SITE: Reports Final 02/01/2021 09:26 Light respiratory georgina isolated No Staph aureus or MRSA isolated. Pre 01/31/2021 06:54 Light respiratory georgina isolated GS 01/30/2021 06:17 <25 Epithelial cells/LPF >25 WBC/LPF Rare Gram Positive Cocci in pairs == ACC: [id number] ORDER: Culture AFB and Stain DATE: 01/30/2021 10:46 SOURCE: Bronchial Alveolar Lavage SITE: Lung R Reports AFB Stain Concentrate 01/31/2021 14:05 No Acid Fast Bacilli seen == ACC: [id number] ORDER: Culture Blood DATE: 01/29/2021 22:39 SOURCE: Blood SITE: Reports Pre 02/03/2021 06:01 No growth at 4 days. Pre 02/02/2021 06:02 No growth at 3 days. Pre 02/01/2021 06:02 No growth at 2 days. Pre 01/31/2021 06:01 No growth at 1 day. Pre 01/30/2021 16:01 Culture less than 24 Hrs old == ACC: [id number] ORDER: Culture Blood DATE: 01/29/2021 22:39 SOURCE: Blood SITE: Reports Pre 02/03/2021 06:01 No growth at 4 days. Pre 02/02/2021 06:02 No growth at 3 days. Pre 02/01/2021 06:02 No growth at 2 days. Pre 01/31/2021 06:01 No growth at 1 day. Pre 01/30/2021 16:01 Culture less than 24 Hrs old == ACC: [id number] ORDER: Culture Fungus DATE: 01/30/2021 10:46 SOURCE: [...]
--- OUTSIDE RECORDS SUMMARY | 2024-08-25 10:21 | XMS_ITS | Encounter Summary ---
Author Organization [employer] Address [address] [place] [address] Care Team Providers Care Web Worker Name Role Phone Unavailable Primary Care Provider Unavailabl e Encounter Details Date Type Department Care Team (Late st Contact Info) Description 02/05/[address] [facility] [place] Family Medicine [facility] [address] ProviderDick [place] [address] Social History Tobacco Use Types [...] - Historical ProviderMD - 02/05/2021 10:22 AM ENERGY AUDITOR Patient: CISCO CAZARES Age: 75 years Sex: Female : 1945 Associated Diagnoses: None Author: JOLIE PAGAN MD-[facility] Subjective Chief complaint. 02/05/21 awake not in distress Health Status Allergies: Allergic Reactions (Selected) No Known Allergies, Allergies (1) Active Reaction No Known Allergies None Documented Current medications: (Selected) Inpatient Medications Ordered Chloraseptic Menthol 1.4% topical spray: 1 [place], Oral, Q2H, PRN: Sore Throat Core mg, [...] Oral, At Bedtime Lovenox: 30 mg, SubCutaneous, E20UFpw MiraLax: 17 Gram, Oral, Daily, PRN: Constipation [...] mL: 100 mg, 50 mL/Hr, IV Piggyback, C42WIjj glucagon: 1 mg, IntraMuscular, Q15Min, PRN: Other [...] Bedtime, 0 Refill(s) Lovenox: 30 mg, SubCutaneous, S73RKao, 0 Refill(s) Pepcid 20 mg oral tablet: [...] Lovenox 30 mg = 0.3 mL, SubCutaneous, J43LYmj Pepcid 20 mg oral tablet 20 mg [...] 0.9% 100 mL 100 mg, IV Piggyback, M48OFwp enoxaparin 30 mg/0.3 ml inj 30 mg 0.3 mL, SubCutaneous, D86ALvw famotidine 20 mg tab 20 mg 1 [...] Push, Q4H phenol 1.4% throat spray 1 [place], Oral, Q2H polyethylene glycol 3350 pwd 17 g pkt 17 Gram 1 Packet, Oral, Daily Problem list: Medical Hypertension / SNOMED CT 31059450 / Confirmed At risk for sleep apnea / IMO [id number] / Confirmed, Active Problems (2) At risk [...] and Plan PEA cardiopulmonary arrest -Occurred at [facility] during a Stress Test with [...]
--- OUTSIDE RECORDS SUMMARY | 2024-08-25 10:21 | XMS_ITS | Encounter Summary ---
Author Organization [employer] Address [address] [place] [address] Care Team Providers Care Team Sports Sales Associate Name Role Phone Unavailable Primary Care Provider Unavailabl e Encounter Details Date Type Department Care Team (Late st Contact Info) Description 02/05/2021 Transcribed Document [facility] [place] Family Medicine [facility] [place] [address] ProviderDick MD [facility] [place] [address] Social History Tobacco Use Types [...] - Historical ProviderMD - 02/05/2021 9:00 AM HIDE TANNER Patient: CISCO CAZARES Age: 75 years Sex: [...] Ordered Chloraseptic Menthol 1.4% topical spray: 1 [employer], Oral, Q2H, PRN: Sore Throat Core mg, [...] Oral, At Bedtime Lovenox: 30 mg, SubCutaneous, Y25MLox MiraLax: 17 Gram, Oral, Daily, PRN: Constipation [...] mL: 100 mg, 50 mL/Hr, IV Piggyback, S69LFoc glucagon: 1 mg, IntraMuscular, Q15Min, PRN: Other [...] Bedtime, 0 Refill(s) Lovenox: 30 mg, SubCutaneous, X59UEbm, 0 Refill(s) Pepcid 20 mg oral tablet: [...] Lovenox 30 mg = 0.3 mL, SubCutaneous, S33TQse Pepcid 20 mg oral tablet 20 mg [...] 0.9% 100 mL 100 mg, IV Piggyback, U41AOsv enoxaparin 30 mg/0.3 ml inj 30 mg 0.3 mL, SubCutaneous, V87CQlc famotidine 20 mg tab 20 mg 1 [...] Push, Q4H phenol 1.4% throat spray 1 [employer], Oral, Q2H polyethylene glycol 3350 pwd 17 g pkt 17 Gram 1 Packet, Oral, Daily Problem list: Medical At risk for sleep apnea / IMO [id number] / Confirmed Hypertension / SNOMED CT 74942340 / Confirmed, Active Problems (2) At risk [...] hypertension. She reports that she lives in [place] and she can do outpatient nephrology clinic follow-up in [facility]. She reports good progress with physical therapy. -Recommend avoiding REJI inhibitor until her kidney function stabilizes especially with her history of hyperkalemia. -I've asked the nursing staff to coordinate outpatient nephrology follow-up with [facility] nephrology in [facility]. Or she can follow-up with Dr. Huang in [place]. From the renal point of view the patient can be discharged at any time. documented in this encounter Plan of Treatment Not on file documented as of this encounter Visit Diagnoses Not on filedocumented in this encounter
--- OUTSIDE RECORDS SUMMARY | 2024-08-25 10:21 | XMS_ITS | Encounter Summary ---
Author Organization [employer] Address [address] [place] [address] Care Team Providers Care Drafter Assistant Name Role Phone Unavailable Primary Care Provider Unavailabl e Encounter Details Date Type Department Care Team (Late st Contact Info) Description 02/04/2021 Transcribed Document [facility] [place] [facility] [place] [address] ProviderDick MD [address] [place] [address] Social History Tobacco Use Types [...] - Historical ProviderMD - 02/04/2021 2:00 AM ROUGE SIFTER Dynamite Packing Machine Operator Details Entered On: 02/04/2021 3:19 EST Performed [...] 02/04/2021 3:19 EST Electronically signed by [facility] Conversion Adjunct Communications Faculty Member Cerner at 06/22/2022 7:34 PM CDT documented in this encounter Plan of Treatment Not on file documented as of this encounter Visit Diagnoses Not on filedocumented in this encounter
--- OUTSIDE RECORDS SUMMARY | 2024-08-25 10:21 | XMS_ITS | Encounter Summary ---
Author Organization [employer] Address [address] [place] [address] Care Team Providers Care Career And Transition Teacher Name Role Phone Unavailable Primary Care Provider Unavailabl e Encounter Details Date Type Department Care Team (Late st Contact Info) Description 02/04/2021 Transcribed Document [facility] [place] [facility] [place] [address] ProviderDick MD [address] [place] [id number] Social History Tobacco Use Types Packs/Day Years [...] - Historical ProviderMD - 02/04/2021 10:18 AM PACKAGE CHECKER DATE OF DISCHARGE: DISCHARGING DIAGNOSES: 1. Acute respiratory failure, status post intubation/extubation. 2. Status post pulseless electrical activity arrest. 3. Sepsis/septic shock. 4. Acute renal failure. 5. Altered mental status/acute encephalopathy. 6. Diabetes mellitus type 2. 7. Morbid obesity. 8. Weakness. DISCHARGE INSTRUCTIONS: Diet, according to [employer] [employer]. Activities, as per physical therapy recommendation. Followup appointment with primary care physician in 3 to 4 days. Followup appointment with Pulmonary in 1 to 2 weeks. Followup appointment with Cardiology in 1 to 2 weeks. DISPOSITION: snf facility. HISTORY AND HOSPITAL COURSE: This is [...] medically stable, work with the physical therapy. channel manager is working on discharge plan. Disposition, rehab soon. Plan discussed with the patient. Chart was reviewed. Time spent, 45 minutes. /[id number] MD YOUSIF Guerra/SUMEET / YOUSIF / MARIA ALEJANDRAL /[id number] Electronically signed by [facility] Conversion Inspector Crystal Cerner at 06/22/2022 7:31 PM CDT documented in this encounter Plan of Treatment Not on file documented as of this encounter Visit Diagnoses Not on filedocumented in this encounter
--- OUTSIDE RECORDS SUMMARY | 2024-08-25 10:21 | XMS_ITS | Encounter Summary ---
Author Organization [employer] Address [address] [place] [address] Care Team Providers Care Staff Attorney Name Role Phone Unavailable Primary Care Provider Unavailabl e Encounter Details Date Type Department Care Team (Late st Contact Info) Description 02/03/2021 Transcribed Document [facility] [place] [address] [place] [address] ProviderDick MD [address] [place] [address] Social History Tobacco Use Types [...] - Historical ProviderMD - 02/03/2021 5:00 AM WARD HELPER Chart Check - Review Order Profile Entered [...]
--- OUTSIDE RECORDS SUMMARY | 2024-08-25 10:21 | XMS_ITS | Encounter Summary ---
Author Organization [employer] Address [address] [place] [address] Care Team Providers Care State Comptroller Name Role Phone Unavailable Primary Care Provider Unavailabl e Encounter Details Date Type Department Care Team (Late st Contact Info) Description 01/30/2021 Transcribed Document [facility] Pulm & Critical Care Medicine [address] [place] [address] [address] [place] [address] Bianka Birmingham MD [address] [facility] [address] [place] [address] Social History Tobacco Use Types [...] procedures followed. Performed by: BIANKA BIRMINGHAM MD, applications developer. Informed consent: not signed by patient. Indication: abnormal chest x-ray, pneumonia, worsening condition. Preparation: NPO, pre-medications given (moderate sedation, asa III, propofol 70 mg IV x 1 ), pre-oxygenation 1 %. Technique: type of bronchoscope flexible, route endotracheal tube, monitoring during procedure (blood pressure monitoring, campus monitor, continuous pulse oximetry). Findings: procedure done with [...]
--- OUTSIDE RECORDS SUMMARY | 2024-08-25 10:21 | XMS_ITS | Encounter Summary ---
Author Organization [employer] Address [address] [place] [address] Care Team Providers Care Prototype Engineer Name Role Phone Unavailable Primary Care Provider Unavailabl e Encounter Details Date Type Department Care Team (Late st Contact Info) Description 02/04/2021 Transcribed Document [facility] [place] [address] [place] [address] ProviderDick MD [address] [place] [address] Social History Tobacco Use Types [...] - Historical ProviderMD - 02/04/2021 5:00 PM LAWN MOWER SHARPENER Chart Check - Review Order Profile Entered On: 02/04/2021 16:44 EST Performed On: 02/04/2021 17:00 EST by Donna Boswell RN Chart Check Powerplans Initiated/Discontinued as Appropriate : Yes All Active Orders Reviewed : Yes Donna Boswell RN - 02/04/2021 16:44 EST Electronically signed by Parviz [facility] Conversion Film Historian Cerner at 06/22/2022 7:26 PM CDT documented in this encounter Plan of Treatment Not on file documented as of this encounter Visit Diagnoses Not on filedocumented in this encounter
--- OUTSIDE RECORDS SUMMARY | 2024-08-25 10:21 | XMS_ITS | Encounter Summary ---
Author Organization [employer] acquired by [employer] iatives Address [address] [place] [address] Care Team Providers Care Investigator Fraud Name Role Phone Unavailable Primary Care Provider Unavailabl e Encounter Details Date Type Department Care Team (Late st Contact Info) Description 01/30/2021 Transcribed Document [facility] [place] [facility] [place] [address] ProviderDick MD [address] [place] [address] Social History Tobacco Use Types [...] Historical ProviderMD - 01/30/2021 10:47 AM RN LACTATION DATE OF CONSULTATION: 01/30/2021 NEUROLOGY CONSULTATION REASON [...] sign off. Please call if any questions. /[phone] MD GAVIN Ruano/SUMEET / GAVIN / AUGUSTINE /[id number] Electronically signed by Parviz, [facility] Conversion Assistant Clinical Nurse Manager Cerner at 06/22/2022 7:21 PM CDT documented in this encounter Plan of Treatment Not on file documented as of this encounter Visit Diagnoses Not on filedocumented in this encounter
--- OUTSIDE RECORDS SUMMARY | 2024-08-25 10:21 | XMS_ITS | Clinical Summary ---
Author Organization [facility] Address [address] [place] [address] Care Team Providers Care Tool Radial Drill Press Set Up Operator Name Role Phone Baljeet Hackett MD Primary Care Provider [phone] Allergies No known active allergies Medications glipiZIDE [...] diabetes mellitus without complications 0 07/06/2023 Immunizations Immunization Administration Dates Next Due Moderna COVID-19 Vaccine [...] = 0.6 oz pur e alcohol) Comments No Sex and Gender Information Value Date Recorded Sex Assigned at Not on file Legal Sex Female 8:28 PM EDT Gender Identity Not on file Sexual Orientation Not on file Last Filed Vital Signs Vital Sign Reading Time Taken Comments Blood Pressure 159/70 02/18/2024 9:45 AM EST Pulse 69 02/18/2024 9:45 AM EST Temperature 36.8 C (98.2 F) 02/18/2024 9:45 AM EST Respiratory Rate 16 02/18/2024 9:45 AM EST Oxygen Saturation 100% 02/18/2024 9:45 AM EST Inhaled Oxygen Concentration - - Weight 60.8 kg (134 lb) 02/18/2024 9:45 AM EST Height 152.4 cm (5') 02/18/2024 9:45 AM EST Body Mass Index 26.17 02/18/2024 9:45 AM EST Plan of Treatment Upcoming Encounters Date Type Department Care Team (Late st Contact Info) Description 09/01/2024 11:00 AM EDT Office Visit [facility] [address] [place] [address] Delilah Calderon, BUILDING PRESSURE WASHER [address] [facility] [address] [place] [address] Health Maintenance Due Date Last Done Comments [facility]-Bone Density Scan 1945 [facility]-Depression Screening 1945 [facility]-Hepatitis C Screening 1945 [facility]-Medicare Annual Wellness (AWV) 1945 [facility]-/Child/Adol SDOH Screenings 1945 Diabetes: Dental Exam 1957 [facility]- SDOH Screenings 1965 [facility]-Adult SDOH Screenings 1965 [facility]-Pneumococcal Vaccine: 50 + Years (1 of 2 - PCV) 1966 [facility]-Zoster Vaccines (1 of 2) 1997 [facility]-Diabetes: Hemoglobin A1C 10/02/2014 04/04/2014 [facility]-DTaP,Tdap,and Td Vaccine s (2 - Td or Tdap) 11/30/2021 12/01/2011, 10/28/2006 [facility]-RSV Vaccine: 60+ Years o r (1 - 1-dose 75+ series) 2022 [id number]-[id number]-43 Vaccine ( - season) 2023 05/21/2021, 05/15/2020, 04/17/2020 [facility]-Influenza Vaccine (Seaso n Ended) 2024 [facility]-Obesity Intervention Completed 024, 08/23/2023, 02/08/2023 HPV Vaccines Aged Out No longer eligi ble based on patient's age to complete this topic [facility]-HIB Vaccines Aged Out No longer e [...] Comment: (NOTE) Glycohemoglobin, 0 years and up: 4.7 - 6.0% . HbA1c assay performed by an ion-exchange chromatography method that is certified traceable to the DCCT. 04/04/2014 4:44 PM EST 04/04/2014 5:35 PM EST Valentin Batista MD LAB BLOOD ORDERABLES Fin al Result SUNQUEST from Last 3 Months or Most Recently Relevant to Health Maintenance Insurance [place] Care Teams Tool Radial Drill Press Set Up Operator Relationship Specialty Start Date End Date Baljeet Hackett MD [address] [place] [address] [address]1 [address] [place] [address] PCP - General 07/19/20
--- OUTSIDE RECORDS SUMMARY | 2024-08-25 10:22 | XMS_ITS | Encounter Summary ---
Author Organization [employer] Address [address] [place] [address] Care Team Providers Care Needle Loom Operator Name Role Phone Unavailable Primary Care Provider Unavailabl e Encounter Details Date Type Department Care Team (Late st Contact Info) Description 02/01/2021 Transcribed Document [facility] [place] [facility] [place] [address] ProviderDick MD [address] [place] [address] Social History Tobacco Use Types [...] - Historical ProviderMD - 02/01/2021 10:08 AM BOILER HELPER Clinical Dietitian Note Entered On: 02/01/2021 10:09 EST Performed On: 02/01/2021 10:08 EST by Arianna Jack Dietitipedro luis Clinical Dietitian Note Clinical Dietitian Note : 02/01: Check on. Discussed pt with nursing. Pt was extubated yesterday and had a PATTERN ATTENDANT eval this morning. She will remain NPO at this time. Plans for NGT placement and EN initiation per pulmonary. PATTERN ATTENDANT to re-eval tomorrow morning as they suspect a quick recovery. Est nutrient needs: 6236-2243 kcals (14-16 kcal/kg), 90-100g pro (1.2 g/kg ABW vs 2.0 g/kg IBW) Recommendations: 1. Place NGT per pulmonary and initiate Vital HP @ 10ml/hr. AAT to a goal rate of 55ml/hr (1210 kcals, 106g pro). FW per MD. Goal: meet est needs 2. Once feasible, advance diet per MD and PATTERN ATTENDANT + cardiac, 60g CHO. RD to assess [...]
--- OUTSIDE RECORDS SUMMARY | 2024-08-25 10:22 | XMS_ITS | Encounter Summary ---
Author Organization [employer] Address [address] [place] [address] Care Team Providers Care Spike Maker Name Role Phone Unavailable Primary Care Provider Unavailabl e Encounter Details Date Type Department Care Team (Late st Contact Info) Description 02/01/2021 Transcribed Document [facility] Pulm & Critical Care Medicine [address] [place] [address] [address] [place] [address] Bianka Birmingham MD [address] [facility] [address] [place] [address] Social History Tobacco Use Types [...] for atrial fibrillation. Patient was transferred to [facility] for further evaluation and higher [...] Oral, At Bedtime Lovenox: 30 mg, SubCutaneous, [id number] MiraLax: 17 Gram, Oral, Daily, PRN: Constipation [...] mg, 300 mL, 300 mL/Hr, IV Piggyback, [id number] amLODIPine: 5 mg, Oral, Daily carvedilol: 6.25 mg, Oral, BID cloNIDine: 0.1 mg, Oral, BID docusate sodium: 100 mg, Oral, BID doxycycline + Sodium Chloride 0.9% intravenous solution 100 mL: 100 mg, 50 mL/Hr, IV Piggyback, [id number] glucagon: 1 mg, IntraMuscular, Q15Min, PRN: Other [...] 0.9% 100 mL 100 mg, IV Piggyback, [id number] enoxaparin 30 mg/0.3 ml inj 30 mg 0.3 mL, SubCutaneous, [id number] famotidine 20 mg/2 mL inj 20 mg 2 mL, IV Push, Q12H insulin regular 1 unit/0.01 mL inj 3mL Scale B, SubCutaneous, Q6H isosorbide MONOnitrate ER 30 mg tab 90 mg 3 Tab, Oral, Daily lactobacillus acidophilus cap 1 Cap, Oral, BID levothyroxine 100 mcg tab 100 mcg 1 Tab, Oral, Daily linezolid *PREMIX* 600 mg 300 mL, IV Piggyback, Y18YJcg methylPREDNISolone SUCCinate 40 mg inj 40 mg, [...] Problem list: Medical Hypertension / SNOMED CT [id number] / Confirmed, Active Problems (1) Hypertension Physical [...] 29) . Radiology Results (Last 48 hours) [id number] -- 01/29/2021 22:07 CR Chest 1 Vw [...] aspiration Non smoker Cardiovascular PEA arrest at [facility], unknown time, brief - most probable respiratory [...] CT head with no acute abnormalities at [facility] 01/29 1600 Acute encephalopathy/resolved . Plan: Pulm [...] are: Patient experienced brief cardiopulmonary arrest at [facility]. I believe given the provided information this was most likely a hypoxemic/respiratory arrest. The code was documented at approximately 1500. Patient had CT scan of the head that was negative for intracranial abnormality. She does have bilateral infiltrates consistent with pneumonia probable aspiration. Patient was transferred to [facility] for further evaluation. Patient was [...]
--- OUTSIDE RECORDS SUMMARY | 2024-08-25 10:22 | XMS_ITS | Encounter Summary ---
Author Organization [employer] [employer] Address [address] [place] [address] Care Team Providers Care Duct Layer Supervisor Name Role Phone Unavailable Primary Care Provider Unavailabl e Encounter Details Date Type Department Care Team (Late st Contact Info) Description 02/01/2021 Transcribed Document [facility] [place] Medicine [facility] [place] [address] ProviderDick MD [address] [place] [address] Social History Tobacco Use Types [...] - Historical ProviderMD - 02/01/2021 8:00 AM JANITOR CUSTODIAN Swallow Evaluation Entered On: 02/01/2021 8:42 EST Performed On: 02/01/2021 8:15 EST by MADELYN COLORADO, WINDOW DRESSER General Information Visit Type, WINDOW DRESSER : Initial evaluation Patient Orders : Speech Language Pathology Additional Tx -111 Start: 02/01/21 8:34:00 EST, For Dysphagia, Continuous Order - Speech Language Pathology Swallow Evaluation and Treatment - Start: 02/01/21 8:00:00 EST, Routine, For Swallow Eval and Treat -111 CRISTINE RAMEY APRN Admission Date : Admission Date/Time: 01/29/21 22:07:00 Medical Chart Reviewed, WINDOW DRESSER : Yes Personal Devices : Personal Devices No Devices Recorded Assistive Devices : Assistive Devices No Devices Recorded Active Diagnoses : No Qualifying Diagnoses Therapy Diagnosis, WINDOW DRESSER : Overt patterns of pharyngeal dysphagia with both thin liquids and pudding. Not yet ready for PO. Suspect quick recovery. Recs: 1. Continue NPO with ice ok after oral care 2. Non-oral meds 3. ST to reeval tomorrow a.m. Previous Swallow Precautions : None in EMR Diet/Intake Prior to Current Admission : regular Diet/Intake During Current Admission : NPO Intubation Comment, WINDOW DRESSER : 01/29-01/31 less than 48 hours Vital [...] 8:34 EST General Status Patient Received Status, WINDOW DRESSER : Long sitting in bed Patient Left Status, WINDOW DRESSER : Long sitting in bed MADELYN COLORADO [...] Oral Mechanism for Daily Living : Intact WINDOW DRESSER Cough : Strong Facial Appearance: : Symmetrical [...] chips, Thin by straw, Pudding MADELYN COLORADO, WINDOW DRESSER - 02/01/2021 8:34 EST Swallow Impressions Impressions, BS Swallow : Signs/Symptoms of pharyngeal dysphagia Swallowing Outcome Measures : Functional Oral Intake Scale (FOIS) Functional Oral Intake Scale (FOIS) : Level I Bedside Swallow Overall Impressions : Patient was transferred to [facility] after PEA cardiac arrest during a [...] - 02/01/2021 8:34 EST Therapy Indication Assessment WINDOW DRESSER Indicated : Yes WINDOW DRESSER Problem List : Impaired, Swallowing Potential Barriers to WINDOW DRESSER : None evident WINDOW DRESSER Rehabilitation Potential : Good MADELYN COLORADO SLP - 02/01/2021 8:34 EST Swallow Plan/Goals Treatment Frequency, WINDOW DRESSER : 1 time per wk Treatment Plan Est w/Pt/Caregvr, Swallow : Yes Treatment Duration, WINDOW DRESSER : One day Therapy at Next Level of Care, WINDOW DRESSER : None anticipated MADELYN COLORADO SLP - 02/01/2021 8:34 EST Swallow LTG Grid WINDOW DRESSER Residential Goal #1 WINDOW DRESSER Residential Goal #2 Swallow LTG : Establish safe [...] MADELYN COLORADO SLP - 02/01/2021 8:34 EST WINDOW DRESSER Education Assessment Grid 1 Aspiration : Verbalizes understanding Dysphagia : Verbalizes understanding Dysphagia, Effects of Impairment : Verbalizes understanding Evaluation Results : Verbalizes understanding Ice Chips : Verbalizes understanding NPO : Verbalizes understanding Oral Care : Verbalizes understanding MADELYN COLORADO SLP - 02/01/2021 8:34 EST WINDOW DRESSER Education Assessment Grid 2 Treatment Plan : Verbalizes understanding MADELYN COLORADO SLP - 02/01/2021 8:[address] [facility] WINDOW DRESSER Charges Evaluation Swallowing Function : 1 MADELYN COLORADO SLP - 02/01/2021 8:34 EST Anticipated Discharge Needs, WINDOW DRESSER Anticipated Discharge to : Home, with home health Recommend Continued Therapy at Discharge : No MADELYN COLORADO SLP - 02/01/2021 8:34 EST Electronically signed by [facility], [facility] Conversion Diesel Engine Mechanic Apprentice Cerner at 06/22/2022 7:35 PM CDT documented in this encounter Plan of Treatment Not on file documented as of this encounter Visit Diagnoses Not on filedocumented in this encounter
--- OUTSIDE RECORDS SUMMARY | 2024-08-25 10:22 | XMS_ITS | Encounter Summary ---
Author Organization [employer] Address [address] [place] [address] Care Team Providers Care Sheet Rock Hanger Name Role Phone Unavailable Primary Care Provider Unavailabl e Encounter Details Date Type Department Care Team (Late st Contact Info) Description 02/05/2021 Transcribed Document [facility] [place] Family Medicine [facility] [place] [address] ProviderDick MD [facility] [place] [address] Social History Tobacco Use Types [...] - Historical ProviderMD - 02/05/2021 6:07 AM PHOTOGRAPHIC PROCESS ATTENDANT Patient: CISCO CAZARES Age: 75 years Sex: Female : 1945 Associated Diagnoses: None Author: NARENDRA JACOBSON MD Subjective Resting in bed. No complaints of chest pain or SOA. No new cardiac issues. Health Status Allergies: Allergic Reactions (Selected) No Known Allergies Current medications: (Selected) Inpatient Medications Ordered Chloraseptic Menthol 1.4% topical spray: 1 Ava, Oral, Q2H, PRN: Sore Throat Core mg, [...] Oral, At Bedtime Lovenox: 30 mg, SubCutaneous, [id number] MiraLax: 17 Gram, Oral, Daily, PRN: Constipation [...] mL: 100 mg, 50 mL/Hr, IV Piggyback, [id number] glucagon: 1 mg, IntraMuscular, Q15Min, PRN: Other [...] 0.9% 100 mL 100 mg, IV Piggyback, [id number] enoxaparin 30 mg/0.3 ml inj 30 mg 0.3 mL, SubCutaneous, D74WJej famotidine 20 mg tab 20 mg 1 [...] Push, Q4H phenol 1.4% throat spray 1 Ava, Oral, Q2H polyethylene glycol 3350 pwd 17 [...] data available Radiology Results (Last 48 hours) [id number] -- 01/29/2021 22:07 CR Chest 1 Vw [...] PEA cardiopulmonary arrest during stress test at [facility] 01/29/21 ROSC unknown (brief per report) [...] current cardiac medications. Eventual Ischemic evaluation with [facility] once renal function recovers. 02/03/2021 Blood [...]
--- OUTSIDE RECORDS SUMMARY | 2024-08-25 10:22 | XMS_ITS | Encounter Summary ---
Author Organization [employer] Address [address] [place] [address] Care Team Providers Care Tag Maker Name Role Phone Unavailable Primary Care Provider Unavailabl e Encounter Details Date Type Department Care Team (Late st Contact Info) Description 01/31/[address] [facility] [place] [facility] [place] [address] ProviderDick MD [facility] [place] [address] Social History Tobacco Use Types [...] - Historical ProviderMD - 01/31/2021 5:11 PM LOG BUYER Patient: CISCO CAZARES Age: 75 Years Sex: Female : 1945 Chief Complaint Cardiac arrest Reason for Consultation Hyperkalemia, elevated serum creatinine, acute kidney injury versus chronic kidney disease History of Present Illness Ms. Cazares is a 75-year-old -Armenian woman with a past medical history significant [...] Franck Huang MD -Nephrology Note dictated with Project 2020 recognition system Partner with Dr. Razo, Dr. [...] Bedtime Lovenox, 30 mg= 0.3 mL, SubCutaneous, [id number] MiraLax, 17 Gram= 1 Packet, Oral, Daily, [...] Zyvox, 600 mg= 300 mL, IV Piggyback, [id number] Home amLODIPine 2.5 mg oral tablet clonidine [...] # 0.60 x10(3)/uL (Low) 02/01/2021 02:40 EST Riley % 4.1 % 02/01/2021 02:40 EST Riley # 0.62 K/uL 02/01/2021 02:40 EST Eos [...] 02/01/2021 02:40 EST Electronically signed by Parviz, [facility] Conversion Airplane Navigator Cerner at 06/22/2022 7:39 PM CDT documented in this encounter Plan of Treatment Not on file documented as of this encounter Visit Diagnoses Not on filedocumented in this encounter
--- OUTSIDE RECORDS SUMMARY | 2024-08-25 10:22 | XMS_ITS | Encounter Summary ---
Author Organization [employer] Address [address] [place] [address] Care Team Providers Care Roulette Dealer Name Role Phone Unavailable Primary Care Provider Unavailabl e Encounter Details Date Type Department Care Team (Late st Contact Info) Description 02/02/[address] [facility] [place] Medicine [facility] [place] [address] ProviderDick MD [address] [place] [address] Social History Tobacco Use Types Packs/Day [...] - Historical Provider, - 02/02/2021 1:43 PM TEACHER DANCING Treatment Intervention, PT Entered On: 02/04/2021 17:13 [...] pivot to BSC, independent with self cleansing [ROBERTA HILL, PT - 02/04/2021 17:06 EST] ) [...] ROBERTA HILL, PT - 02/04/2021 17:06 EST [facility] Goals Mobility/Bed Mobility LTG PT Grid Goal [...] ROBERTA HILL, PT - 02/04/2021 17:06 EST [place] PT Charges PT Therap. Exercise 15 min : 1 PT Ther Activities Ea 15 Min : 1 ROBERTA HILL, PT - 02/04/2021 17:06 EST Electronically signed by [facility], [facility] Conversion Service Observer Cerner at 06/28/2022 1:08 PM CDT documented in this encounter Plan of Treatment Not on file documented as of this encounter Visit Diagnoses Not on filedocumented in this encounter
--- OUTSIDE RECORDS SUMMARY | 2024-08-25 10:22 | XMS_ITS | Encounter Summary ---
Author Organization [employer] Address [address] [place] [address] Care Team Providers Care Sausage Meat Trimmer Name Role Phone Unavailable Primary Care Provider Unavailabl e Encounter Details Date Type Department Care Team (Late st Contact Info) Description 02/02/2021 Transcribed Document [facility] Pulm & Critical Care Medicine [address] [place] [address] [address] [place] [address] Bianka Birmingham MD [address] [facility] [address] [place] [address] Social History Tobacco Use Types [...] for atrial fibrillation. Patient was transferred to [facility] for further evaluation and higher level of [...] Ordered Chloraseptic Menthol 1.4% topical spray: 1 [place], Oral, Q2H, PRN: Sore Throat Dextrose 50% [...] Oral, At Bedtime Lovenox: 30 mg, SubCutaneous, [id number] MiraLax: 17 Gram, Oral, Daily, PRN: Constipation NORepinephrine injection 8 mg + NaCl 0.9% for drip 250 mL: TITRATE, IntraVENous Normal Saline Flush: 10 mL, IV Push, Q12H Normal Saline Flush: 10 mL, IV Push, See Comment, PRN: IV Use Pepcid: 20 mg, Oral, Daily SOLU-Medrol: 40 mg, IV Push, [id number] Senokot: 8.6 mg, Oral, BID Tylenol: 650 [...] mL: 100 mg, 50 mL/Hr, IV Piggyback, E87LNbu glucagon: 1 mg, IntraMuscular, Q15Min, PRN: Other [...] 0.9% 100 mL 100 mg, IV Piggyback, [id number] enoxaparin 30 mg/0.3 ml inj 30 mg 0.3 mL, SubCutaneous, M83UJcl famotidine 20 mg tab 20 mg 1 Tab, Oral, Daily insulin regular 1 unit/0.01 mL inj 3mL Scale B, SubCutaneous, Q6H isosorbide MONOnitrate ER 30 mg tab 90 mg 3 Tab, Oral, Daily lactobacillus acidophilus cap 1 Cap, Oral, BID levothyroxine 100 mcg tab 100 mcg 1 Tab, Oral, Daily methylPREDNISolone SUCCinate 40 mg inj 40 mg, IV Push, B68NDml piperacillin-tazobactam + NaCl 0.9% 50 mL 2.25 [...] Push, Q4H phenol 1.4% throat spray 1 [place], Oral, Q2H polyethylene glycol 3350 pwd 17 g pkt 17 Gram 1 Packet, Oral, Daily Problem list: Medical Hypertension / SNOMED CT [id number] / Confirmed, Active Problems (1) Hypertension Physical [...] 29) . Radiology Results (Last 48 hours) [id number] -- 01/29/2021 22:07 CR Chest 1 Vw [...] aspiration Non smoker Cardiovascular PEA arrest at [facility], unknown time, brief - most probable [...] CT head with no acute abnormalities at [facility] 01/29 1600 Acute encephalopathy/resolved . Plan: [...] are: Patient experienced brief cardiopulmonary arrest at [facility]. I believe given the provided information this was most likely a hypoxemic/respiratory arrest. The code was documented at approximately 1500. Patient had CT scan of the head that was negative for intracranial abnormality. She does have bilateral infiltrates consistent with pneumonia probable aspiration. Patient was transferred to [facility] for further evaluation. Patient was extubated successfully [...]
--- OUTSIDE RECORDS SUMMARY | 2024-08-25 10:22 | XMS_ITS | Encounter Summary ---
Author Organization [employer] iatives Address [address] [place] [address] Care Team Providers Care Executive Director Of Nursing Name Role Phone Unavailable Primary Care Provider Unavailabl e Encounter Details Date Type Department Care Team (Late st Contact Info) Description 02/01/2021 Transcribed Document [facility] [place] [facility] [place] [address] ProviderDick MD [facility] [place] [address] Social History Tobacco Use Types [...] - Historical ProviderMD - 02/01/2021 9:43 AM BASKETBALL PLAYER Patient: CISCO CAZARES Age: 75 years Sex: [...] Oral, At Bedtime Lovenox: 30 mg, SubCutaneous, S79LKgs MiraLax: 17 Gram, Oral, Daily, PRN: Constipation [...] mg, 300 mL, 300 mL/Hr, IV Piggyback, S50EDod docusate sodium: 100 mg, Oral, BID doxycycline + Sodium Chloride 0.9% intravenous solution 100 mL: 100 mg, 50 mL/Hr, IV Piggyback, Z86LKdg glucagon: 1 mg, IntraMuscular, Q15Min, PRN: Other [...] 0.9% 100 mL 100 mg, IV Piggyback, U80MDep enoxaparin 30 mg/0.3 ml inj 30 mg 0.3 mL, SubCutaneous, M71RPto famotidine 20 mg/2 mL inj 20 mg 2 mL, IV Push, Q12H insulin regular 1 unit/0.01 mL inj 3mL Scale B, SubCutaneous, Q6H lactobacillus acidophilus cap 1 Cap, Oral, BID levothyroxine 100 mcg tab 100 mcg 1 Tab, Oral, Daily linezolid *PREMIX* 600 mg 300 mL, IV Piggyback, Z94FIel methylPREDNISolone SUCCinate 40 mg inj 40 mg, [...] list: All Problems Hypertension / SNOMED CT 68181618 / Confirmed, Active Problems (1) Hypertension Objective [...] 24 Hours) Radiology Results (Last 48 hours) [id number] -- 01/29/2021 22:07 CR Chest 1 Vw [...] PEA cardiopulmonary arrest during stress test at [facility]. ROSC unknown (brief per report) [...]
--- OUTSIDE RECORDS SUMMARY | 2024-08-25 10:22 | XMS_ITS | Encounter Summary ---
Author Organization [employer] i[employer] Address [address] [place] [address] Care Team Providers Care Jewel Hole Driller Name Role Phone Unavailable Primary Care Provider Unavailabl e Encounter Details Date Type Department Care Team (Late st Contact Info) Description 01/31/2021 Transcribed Document [facility] [place] [facility] [place] [address] ProviderDick MD [address] [place] [address] Social History Tobacco Use Types [...] - Historical ProviderMD - 01/31/2021 6:59 AM SECURITY PATROL DRIVER Consult Phone Call Documentation Entered On: 01/31/2021 8:57 EST Performed On: 01/31/2021 6:59 EST by Elba Dennis TELEPHONE QUOTATION CLERK-HEALTH UNIT COORD Phone Call for Consults Consult Phone Call/Page Attempt : First call Elba Dennis TELEPHONE QUOTATION CLERK-HEALTH UNIT COORD - 01/31/2021 8:57 EST documented in this encounter Plan of Treatment Not on file documented as of this encounter Visit Diagnoses Not on filedocumented in this encounter
--- OUTSIDE RECORDS SUMMARY | 2024-08-25 10:22 | XMS_ITS | Encounter Summary ---
Author Organization [employer] iatives Address [address] [place] [address] Care Team Providers Care Mri Ct Tech Name Role Phone Unavailable Primary Care Provider Unavailabl e Encounter Details Date Type Department Care Team (Late st Contact Info) Description 02/05/2021 Transcribed Document [facility] [place] [facility] [place] [address] ProviderDick MD [address] [place] [address] Social History Tobacco Use Types Packs/Day [...] - Historical ProviderMD - 02/05/2021 3:03 PM PHOTOFINISHING LABORATORY WORKER Nursing Discharge Summary Entered On: 02/05/2021 15:04 EST Performed On: 02/05/2021 15:03 EST by Donna Boswell RN Discharge Documentation Discharge Date/Time : 02/05/2021 14:15 EST Transporter Signature : Flaca Lin Patient Advertising Campaign Manager Lorenza Patient Disposition, General : Discharge Discharge To : Rehabilitation unit/facility Name of Receiving Facility/Provider : [facility] Mode Of Departure, General Discharge : Other: [facility] [place] IV Discontinued : Yes Personal Belongings With [...] : hand-off report called to Tevin at [facility] Donna Boswell RN - 02/05/2021 15:03 EST Electronically signed by Parviz, [facility] Conversion Park Worker Supervisor Cerner at 06/22/2022 7:38 PM CDT documented in this encounter Plan of Treatment Not on file documented as of this encounter Visit Diagnoses Not on filedocumented in this encounter
--- OUTSIDE RECORDS SUMMARY | 2024-08-25 10:22 | XMS_ITS | Encounter Summary ---
Author Organization [employer] Address [address] [place] [address] Care Team Providers Care Fisher Trawl Net Name Role Phone Unavailable Primary Care Provider Unavailabl e Encounter Details Date Type Department Care Team (Late st Contact Info) Description 02/02/2021 Transcribed Document [facility] [place] [facility] [place] [address] ProviderDick MD [address] [place] [address] Social History Tobacco Use Types Packs/Day [...] - Historical ProviderMD - 02/02/2021 9:51 AM SHOER Patient: CISCO CAZARES Age: 75 years Sex: Female : 1945 Associated Diagnoses: None Author: WINSTON NUÑEZ MD-INF Basic Information CC: Sepsis, probable aspiration pneumonia History of Present Illness 75 yo female with h/o T2DM, HLD, hypothyroidism, and HTN who presented to [facility] on 01/29/21 by transfer from [facility] for cardiology evaluation. The patient was [...] creatinine of 1.9. She was transferred to [facility]. On arrival on 01/29, her Tlow was [...] 100 - 100 mg, IV Piggyback, Inj, M41RIqk, infuse over 2 Hour(s), order duration: 7 Day(s), Routine Immunology methylPREDNISolone (SOLU-Medrol) - 40 mg, IV Push, Inj, O00KOrj, Routine Anticoagulant enoxaparin (Lovenox) - 30 mg, SubCutaneous, Inj, X36CEnn Cardiovascular NORepinephrine 8 mg + Sodium Chloride [...] (Chloraseptic Menthol 1.4% topical spray) - 1 Lagrange, Oral, [place], Q2H, PRN for Sore Throat, Routine Vitamins [...] No tenderness, No deformity. Integumentary: Warm, Dry, [place], No rash. Neurologic: Alert, Normal sensory, Normal [...] Troponin C 0.771 (JAN 29) , ACC: [id number] ORDER: Culture Bronch Wash and Stain DATE: 01/30/2021 10:46 SOURCE: Right Lower Lobe SITE: Reports Final 02/01/2021 09:52 No growth Pre 01/31/2021 07:02 No growth GS 01/30/2021 14:00 No organisms seen. Few White Blood Cells == ACC: [id number] ORDER: Culture Sputum and Stain DATE: 01/29/2021 23:26 SOURCE: Tracheal Aspirate SITE: Reports Final 02/01/2021 09:26 Light respiratory georgina isolated No Staph aureus or MRSA isolated. Pre 01/31/2021 06:54 Light respiratory georgina isolated GS 01/30/2021 06:17 <25 Epithelial cells/LPF >25 WBC/LPF Rare Gram Positive Cocci in pairs == ACC: [id number] ORDER: Culture AFB and Stain DATE: 01/30/2021 10:46 SOURCE: Bronchial Alveolar Lavage SITE: Lung R Reports AFB Stain Concentrate 01/31/2021 14:05 No Acid Fast Bacilli seen == ACC: [id number] ORDER: Culture Blood DATE: 01/29/2021 22:39 SOURCE: Blood SITE: Reports Pre 02/02/2021 06:02 No growth at 3 days. Pre 02/01/2021 06:02 No growth at 2 days. Pre 01/31/2021 06:01 No growth at 1 day. Pre 01/30/2021 16:01 Culture less than 24 Hrs old == ACC: [id number] ORDER: Culture Blood DATE: 01/29/2021 22:39 SOURCE: Blood SITE: Reports Pre 02/02/2021 06:02 No growth at 3 days. Pre 02/01/2021 06:02 No growth at 2 days. Pre 01/31/2021 06:01 No growth at 1 day. Pre 01/30/2021 16:01 Culture less than 24 Hrs old == ACC: [id number] ORDER: Culture Fungus DATE: 01/30/2021 10:46 SOURCE: Bronchial Alveolar Lavage SITE: Lung R Reports EMMY 01/30/2021 14:00 No Fungal elements seen == . Chest x-ray results Radiology Results (Last 48 hours) [id number] -- 01/29/2021 22:07 CR Chest 1 Vw [...] . Time > 30 min. 6-6:33 am. Electronically signed by Parviz, [place] Conversion Foreman/Pile Driving And Erection Cerner at 06/22/2022 7:17 PM CDT documented in this encounter Plan of Treatment Not on file documented as of this encounter Visit Diagnoses Not on filedocumented in this encounter
--- OUTSIDE RECORDS SUMMARY | 2024-08-25 10:22 | XMS_ITS | Encounter Summary ---
Author Organization [employer] Address [address] [place] [address] Care Team Providers Care Raw Stock Machine Loader Name Role Phone Unavailable Primary Care Provider Unavailabl e Encounter Details Date Type Department Care Team (Late st Contact Info) Description 01/31/2021 Transcribed Document [facility] [place] [facility] [place] [address] ProviderDick MD [address] [place] [address] Social History Tobacco Use Types [...] - Historical ProviderMD - 01/31/2021 9:09 AM SWAGING MACHINE OPERATOR Initial Discharge Planning Entered On: 01/31/2021 9:14 EST Performed On: 01/31/2021 9:09 EST by JANET MADRID RN-Azure Architect Initial Assessment I Previously Documented Living Environment [...] Listed? : Yes Medical Durable Power of Head Charrer Name : no Legal Guardian : No Is Guardianship Needed : No JANET MADRID RN-Azure Architect - 01/31/2021 9:09 EST Initial Assessment II Sensory and Motor Deficits : Weakness Current Home Treatments and Equipment : None Does the Patient have a Floor to SNF Benefit? : Yes JANET MADRID, RN-Azure Architect - 01/31/2021 9:09 EST Discharge Needs I Anticipated Discharge Date : 02/03/2021 EST Anticipated Discharge To, CM : Home with home health, Rehabilitation Unit, long-term facility Current Home Treatment/Equipment : Current Home Treatment/Equipment No qualifying data available. Post Acute/Home Treatments : None Documentation Status Complete : Yes JANET MADRID RN-Azure Architect - 01/31/2021 9:09 EST Discharge Needs II Professional Skilled Services : Professional Skilled Services No qualifying data available. Needs Assistance with Transportation : Maybe Discharge Options Discussed with Patient : Acute rehabilitation, Home Health, detention JANET MADRID, RN-Azure Architect - 01/31/2021 9:09 EST Narrative Note Narrative Note : HD# 2. elos: not reported. RAR: moderate 57 from [facility]. pea arrest during stress test. acute hypoxic resp failure. irene. htn. diabetes. covid 19: negative 01-30 mechancial ventilation. precedex gtt. fentanyl gtt. levophed gtt to off. doxycycline/zyvox/zosyn iv. solu medrol iv. spoke with pt's daughter, Eunice, by phone. pt resides in [facility]. she lives alone. adl independent. no dme, hh or rehab stays dcp: rehab vs hh depending on progress. no poa/hcs. single. 1 child. Eunice, daughter, legal next of kin: [phone] spoke with Bao bedside RN. JANET MADRID, RN-Azure Architect - 01/31/2021 9:09 EST Electronically signed by Parviz [facility] Conversion Blow Molding Machine Tender Cerner at 06/22/2022 7:37 PM CDT documented in this encounter Plan of Treatment Not on file documented as of this encounter Visit Diagnoses Not on filedocumented in this encounter
--- OUTSIDE RECORDS SUMMARY | 2024-08-25 10:22 | XMS_ITS | Encounter Summary ---
Author Organization [employer] Address [address] [place] [address] Care Team Providers Care Prefinish Operator Name Role Phone Unavailable Primary Care Provider Unavailabl e Encounter Details Date Type Department Care Team (Late st Contact Info) Description 02/05/2021 Transcribed Document [facility] [place] [facility] [place] [address] ProviderDick MD [facility] [place] [address] Social History Tobacco Use Types [...] - Dick ProviderMD - 02/05/2021 1:26 PM CARPENTER LABOR SUPERVISOR [facility] [place] [address] [place] CISCO ROGERS [...] [facility] Discharge Summary: MED Unit at [facility]. RN report # [phone]. Transportation: [facility] wheelchair van at 1430 Follow-Up Appointments Follow [...] provider. This is important. Medicines ??? Take phzz-jfj-mjhyqwx and prescription medicines only as told by [...] provider. Document Revised: 11/02/2018 Document Reviewed: 11/02/2018 [employer] Patient Education ?? 2020 [employer]. Acute Respiratory Distress Syndrome, Adult Acute respiratory [...] these instructions at home: Medicines ??? Take glsp-iso-vaqwunc and prescription medicines only as told by [...] important. Where to find more information ??? [place] [employer] Association: https://www.lung.org/ ??? ARDS Foundation: https://ardsglobal.org/ [...] provider. Document Revised: 04/08/2020 Document Reviewed: 03/21/2020 [employer] Patient Education ?? 2020 [employer] Weakness Weakness is a lack of [...] Consider working with a physical therapist or link trainer maintenance worker who can develop an exercise plan to help you gain muscle strength. General instructions ??? Take bwlu-xpq-qwoxulq and prescription medicines only as told by [...] provider. Document Revised: 09/28/2018 Document Reviewed: 09/28/2018 [employer] Patient Education ?? 2020 [employer]. Acute Respiratory Failure, Adult Acute respiratory [...] these instructions at home: Medicines ??? Take hdlm-yif-lhrzvri and prescription medicines only as told by [...] breathe, such as a ventilator. ??? Take mlzh-pil-ugtjmxe and prescription medicines only as told by your health care provider. ??? Contact a health care provider if your symptoms do not improve or if they get worse. This information is not intended to replace advice given to you by your health care provider. Make sure you discuss any questions you have with your health care provider. Document Revised: 02/09/2020 Document Reviewed: 02/09/2020 [employer] Patient Education ?? 2020 [employer]. Emergency Awareness and Preventative Care STROKE is [...] Assistance with quitting is available by contacting 8-746-IOWC-NOW. This is a free resource providing counseling, [...] range between ( 0.0 and 7.0 ) Mckinley #: 1.39 K/uL -- Normal range between ( 0.16 and 1.00 ) Eos #: 0.07 x10(3)/uL -- Normal range between ( 0.00 and 0.80 ) Mckinley %: 14.2 % -- Normal range between [...] 11 ) Hypochromia: 1+ RBC Morphology: Abnormal Mckinley Percent Man: 6 % -- Normal range [...] -- Normal range between ( 0 and 14551 ) RBC Count BF: 1150 /uL -- Normal range between ( 0 and 32991 ) Body Fluid Review for Pathologist: Body [...] was given the opportunity to ask questions. Patient/Cardiovascular Physician Assistant Name: Patient/Cardiovascular Physician Assistant Signature: Relationship to Patient: Clinician/Hospital Cardiovascular Physician Assistant Signature: Date: documented in this encounter Plan of Treatment Not on file documented as of this encounter Visit Diagnoses Not on filedocumented in this encounter
--- OUTSIDE RECORDS SUMMARY | 2024-08-25 10:22 | XMS_ITS | Encounter Summary ---
Author Organization [employer] Address [address] [place] [address] Care Team Providers Care Air Plant Engineer Name Role Phone Unavailable Primary Care Provider Unavailabl e Encounter Details Date Type Department Care Team (Late st Contact Info) Description 02/05/2021 Transcribed Document [facility] [place] [facility] [place] [address] ProviderDick MD [facility] [place] [address] Social History Tobacco Use Types [...] - Historical ProviderMD - 02/05/2021 10:24 AM AIRPLANE PILOT COMMERCIAL Patient: CAROL CAZARES Age: 75 Years Sex: [...] medically stable, work with the physical therapy. manager of marketing is working on discharge plan. Disposition, rehab soon. Vital Signs T: 37 ??C TMIN: 36.9 ??C TMAX: 37.4 ??C HR: 70 HR: 70 RR: 18 BP: 179/81 SpO2: 100% Oxygen Settings (Last) Oxygen Therapy Mode: Nasal cannula (02/05/21 08:17:00) Oxygen Flow Rate: 1 Liter/Min (02/05/21 08:17:00) Discharge Disposition Longterm unit/facility Discharge Follow Up Follow up with [...] Lovenox 30 mg = 0.3 mL, SubCutaneous, Q99KJfa Pepcid 20 mg oral tablet 20 mg [...] Consistency: Mechanical soft, Cardiac Diet, 60 gm carbs:6936-3868 [place] Pending Labs In Process CYTOLOGY REPORT [id number], [id number], RT - Routine, 01/30/21 10:46:00 EST Pathology Non-Project Specialist Request (Cytology Non-Project Specialist Request) [id number], [id number], 01/30/21 10:46:00 EST, Collected, RT - Routine, [...]
--- OUTSIDE RECORDS SUMMARY | 2024-08-25 10:22 | XMS_ITS | Encounter Summary ---
Author Organization [employer] Address [address] [place] [address] Care Team Providers Care Commercial Energy Auditor Name Role Phone Unavailable Primary Care Provider Unavailabl e Encounter Details Date Type Department Care Team (Late st Contact Info) Description 01/29/2021 Transcribed Document [facility] [place] [address] [place] [address] ProviderDick MD [address] [place] [address] Social History Tobacco Use Types [...] - Historical ProviderMD - 01/29/2021 10:38 PM TELEPHONE AD TAKER Consult Phone Call Documentation Entered On: 01/30/2021 8:41 EST Performed On: 01/29/2021 22:38 EST by Arianna Jenkins, Proj Engineer-Health Unit Coord Phone Call for Consults Consult Reason : already seen Arianna Jenkins, Proj Engineer-Health Unit Coord - 01/30/2021 8:41 EST Electronically signed by Parviz [facility] Conversion Fusion Operator Cerdev at 06/22/2022 7:14 PM CDT documented in this encounter Plan of Treatment Not on file documented as of this encounter Visit Diagnoses Not on filedocumented in this encounter
--- OUTSIDE RECORDS SUMMARY | 2024-08-25 10:22 | XMS_ITS | Encounter Summary ---
Author Organization [employer] Address [address] [place] [address] Care Team Providers Care Channel Sales Manager Name Role Phone Unavailable Primary Care Provider Unavailabl e Encounter Details Date Type Department Care Team (Late st Contact Info) Description 02/01/2021 Transcribed Document [facility] [place] [facility] [place] [address] ProviderDick MD [address] [place] [address] Social History Tobacco Use Types [...] - Historical ProviderMD - 02/01/2021 8:34 AM SALES FACILITATOR ELECTRIC ORGAN ASSEMBLER AND CHECKER Note Entered On: 02/02/2021 8:24 EST Performed [...] RAQUEL - 02/02/2021 8:20 EST MADELYN COLORADO, ELECTRIC ORGAN ASSEMBLER AND CHECKER - 02/02/2021 8:20 EST MADELYN COLORADO, ELECTRIC ORGAN ASSEMBLER AND CHECKER - 02/02/2021 8:20 EST Swallow Plan/Goals Swallow LTG Grid ELECTRIC ORGAN ASSEMBLER AND CHECKER Nursing Home Goal #1 ELECTRIC ORGAN ASSEMBLER AND CHECKER Nursing Home Goal #2 Swallow LTG : Establish safe oral diet without aspiration Other: Pt goal: home Status : Goal met Date Met : 02/02/2021 EST MADELYN COLORADO, ELECTRIC ORGAN ASSEMBLER AND CHECKER - 02/02/2021 8:20 EST MADELYN COLORADO, ELECTRIC ORGAN ASSEMBLER AND CHECKER - 02/02/2021 8:20 EST Swallow Goals Grid Goal #1 Swallow STG : Other: Reeval Related To : Aspiration prevention, Return to oral intake Date to Meet : 02/02/2021 EST Status : Goal met Date Met : 02/02/2021 MADELYN OSORIO, ELECTRIC ORGAN ASSEMBLER AND CHECKER - 02/02/2021 8:20 EST Subjective/Assessment/Plan ELECTRIC ORGAN ASSEMBLER AND CHECKER Patient Concern : Patient awake in bed. NG in place. Agreeable to reeval. Per RN, patient with increased O2 requirements over night. ELECTRIC ORGAN ASSEMBLER AND CHECKER Therapy/Treatment Asmt Cmnt : Patient seen for reeval. Voice and volitional cough remain strong. No overt patterns of oropharyngeal dysphagia with any consistency. She is more SOA today. Recommend initiate a regular diet with pacing, and meds per RN. ELECTRIC ORGAN ASSEMBLER AND CHECKER Plan : Regular diet. ST to sign off. MADELYN COLORADO SLP - 02/02/2021 8:20 EST Education Barriers To Learning : None evident Individuals Taught : Patient Readiness to Learn : Cooperative Readiness to Learn : Explanation MADELYN COLORADO SLP - 02/02/2021 8:20 EST ELECTRIC ORGAN ASSEMBLER AND CHECKER Education Assessment Grid 1 Diet Recommendation : Verbalizes understanding Dysphagia : Verbalizes understanding Evaluation Results : Verbalizes understanding MADELYN COLORADO SLP - 02/02/2021 8:20 EST ELECTRIC ORGAN ASSEMBLER AND CHECKER Education Assessment Grid 2 Swallowing, Strategies : Verbalizes understanding MADELYN COLORADO ELECTRIC ORGAN ASSEMBLER AND CHECKER - 02/02/2021 8:[address] [facility] ELECTRIC ORGAN ASSEMBLER AND CHECKER Charges Treatment-Swallowing : 1 MADELYN COLORADO, ELECTRIC ORGAN ASSEMBLER AND CHECKER - 02/02/2021 8:20 EST Anticipated Discharge Needs, ELECTRIC ORGAN ASSEMBLER AND CHECKER Anticipated Discharge to : Extended Care Facility, Rehab, high intensity Recommend Continued Therapy at Discharge : No MADELYN COLORADO, ELECTRIC ORGAN ASSEMBLER AND CHECKER - 02/02/2021 8:20 EST Electronically signed by Parviz, [facility] Conversion Manager Global Cerner at 06/22/2022 7:29 PM CDT documented in this encounter Plan of Treatment Not on file documented as of this encounter Visit Diagnoses Not on filedocumented in this encounter
--- OUTSIDE RECORDS SUMMARY | 2024-08-25 10:22 | XMS_ITS | Encounter Summary ---
Author Organization [employer] Address [address] [place] [address] Care Team Providers Care Safety Trainer Name Role Phone Unavailable Primary Care Provider Unavailabl e Encounter Details Date Type Department Care Team (Late st Contact Info) Description 02/05/2021 Transcribed Document [facility] [place] [address] [place] [address] ProviderDick MD [address] [place], [place] [id number] Social History Tobacco Use Types Packs/Day Years [...] - Historical ProviderMD - 02/05/2021 1:23 PM PLANNING DIVISION SUPERINTENDENT Stroke/Warfarin Instructions Entered On: 02/05/2021 13:23 EST Performed On: 02/05/2021 13:23 EST by Donna Boswell RN Stroke/Warfarin Instructions Stroke/TIA Discharge Ins : N/A Warfarin Discharge Ins : N/A Donna Boswell RN - 02/05/2021 13:23 EST Electronically signed by Parviz [facility] Conversion Unix Architect Cerner at 06/22/2022 7:35 PM CDT documented in this encounter Plan of Treatment Not on file documented as of this encounter Visit Diagnoses Not on filedocumented in this encounter
--- OUTSIDE RECORDS SUMMARY | 2024-08-25 10:22 | XMS_ITS | Encounter Summary ---
Author Organization [employer] Address [address] [place] [address] Care Team Providers Care Art Editor Name Role Phone Unavailable Primary Care Provider Unavailabl e Encounter Details Date Type Department Care Team (Late st Contact Info) Description 02/05/2021 Transcribed Document [facility] [place] Family Medicine [address] [place] [address] ProviderDick MD [address] [place] [address] Social History Tobacco Use Types [...] - Historical ProviderMD - 02/05/2021 5:00 AM HEAVY ANTIARMOR WEAPONS INFANTRYMAN Chart Check - Review Order Profile Entered [...]
--- OUTSIDE RECORDS SUMMARY | 2024-08-25 10:22 | XMS_ITS | Encounter Summary ---
Author Organization [employer] iatives Address [address] [place] [address] Care Team Providers Care Precision Dancer Name Role Phone Unavailable Primary Care Provider Unavailabl e Encounter Details Date Type Department Care Team (Late st Contact Info) Description 02/01/2021 Transcribed Document [facility] [place] [facility] [place] [address] ProviderDick MD [address] [place] [address] Social History Tobacco Use Types Packs/Day [...] - Historical ProviderMD - 02/01/2021 9:20 AM GAS PLANT WORKER Evaluation, Physical Therapy Entered On: 02/02/2021 13:43 [...] : Assist, minimal (Comment: of 2 [LUCIANO GOMZE, PT - 02/02/2021 13:35 EST] ) Walking [...] LUCIANO GOMEZ, PT - 02/02/2021 13:35 EST Intermediate Goals Mobility/Bed Mobility LTG PT Grid Goal [...] JASON LUCIANO, PT - 02/02/2021 13:35 EST documented in this encounter Plan of Treatment Not on file documented as of this encounter Visit Diagnoses Not on filedocumented in this encounter
--- OUTSIDE RECORDS SUMMARY | 2024-08-25 10:22 | XMS_ITS | Encounter Summary ---
Author Organization [employer] i[employer] Address [address] [place] [address] Care Team Providers Care Laborer Brooder Farm Name Role Phone Unavailable Primary Care Provider Unavailabl e Encounter Details Date Type Department Care Team (Late st Contact Info) Description 02/05/2021 Transcribed Document [facility] [place] [facility] [place] [address] ProviderDick MD [address] [place] [address] Social History Tobacco Use Types [...] - Historical ProviderMD - 02/05/2021 2:00 AM CAR WIPER Chemical Project Engineer Details Entered On: 02/05/2021 4:48 EST Performed [...]
--- OUTSIDE RECORDS SUMMARY | 2024-08-25 10:22 | XMS_ITS | Encounter Summary ---
Author Organization [employer] i[employer] Address [address] [place] [address] Care Team Providers Care Children'S Tutor Name Role Phone Unavailable Primary Care Provider Unavailabl e Encounter Details Date Type Department Care Team (Late st Contact Info) Description 02/01/2021 Transcribed Document [facility] [place] Medicine [facility] [place] [address] ProviderDick MD [facility] [place] [address] Social History Tobacco Use Types [...] - Historical ProviderMD - 02/01/2021 4:48 PM PAPER WRAPPING MACHINE OPERATOR Patient: CISCO CAZARES Age: 75 Years Sex: [...] Rodriguez and Dr. Malin Note dictated with Nexopia recognition system Medications amLODIPine, 2.5 mg= 1 [...] Bedtime Lovenox, 30 mg= 0.3 mL, SubCutaneous, [id number] MiraLax, 17 Gram= 1 Packet, Oral, Daily, [...] Zyvox, 600 mg= 300 mL, IV Piggyback, [id number] Lab Results Test Name Test Result Date/Time [...] # 0.60 x10(3)/uL (Low) 02/01/2021 02:40 EST [place] % 4.1 % 02/01/2021 02:40 EST [place] # 0.62 K/uL 02/01/2021 02:40 EST Eos [...] IG% 1.20 % (High) 02/01/2021 02:40 EST documented in this encounter Plan of Treatment Not on file documented as of this encounter Visit Diagnoses Not on filedocumented in this encounter
--- OUTSIDE RECORDS SUMMARY | 2024-08-25 10:22 | XMS_ITS | Encounter Summary ---
Author Organization [employer] iatives Address [address] [place] [address] Care Team Providers Care Sales Driver Name Role Phone Unavailable Primary Care Provider Unavailabl e Encounter Details Date Type Department Care Team (Late st Contact Info) Description 01/29/2021 Transcribed Document [facility] Pulm & Critical Care Medicine [address] [place] [address] [address] [place] [address] Leti Varela MD [address] [facility] [address] [place] [address] Social History Tobacco Use Types [...] for atrial fibrillation. Patient was transferred to [facility] for further evaluation and higher level of [...] aspiration Non smoker Cardiovascular PEA arrest at [facility], unknown time, brief - most probable respiratory arrest vs other History of hypertension Renal Acute kidney injury, non-oliguric Endocrinology Type 2 diabetes mellitus Hypothyroidism on levothyroxine at home GI/Nutrition Stable Hem/Onc No leukocytosis Neurology Post CP arrest. On ventilator without sedation, unresponsive CT head with no acute abnormalities at [facility] 01/29 1600 High risk for anoxic injury [...] ICU Patient experienced brief cardiopulmonary arrest at [facility]. I believe given the provided information this was most likely a hypoxemic/respiratory arrest. The code was documented at approximately 1500. Patient had CT scan of the head that was negative for intracranial abnormality. She does have bilateral infiltrates consistent with edema versus pneumonia versus aspiration. Patient was transferred to [facility] for further evaluation. Patient was examined and [...]
--- OUTSIDE RECORDS SUMMARY | 2024-08-25 10:22 | XMS_ITS | Encounter Summary ---
Author Organization [employer] i[employer] Address [address] [place] [address] Care Team Providers Care Operations Logistics Analyst Name Role Phone Unavailable Primary Care Provider Unavailabl e Encounter Details Date Type Department Care Team (Late st Contact Info) Description 02/01/2021 Transcribed Document [facility] [place] [facility] [place] [address] ProviderDick MD [facility] [place] [address] Social History Tobacco Use Types [...] - Historical ProviderMD - 02/01/2021 6:52 PM GROCERY STOCK CLERK Patient: CISCO CAZARES Age: 75 years Sex: Female : 1945 Associated Diagnoses: None Author: JOLIE PAGAN MD-[facility] Subjective Chief complaint. extubated aake not [...] Oral, At Bedtime Lovenox: 30 mg, SubCutaneous, [id number] MiraLax: 17 Gram, Oral, Daily, PRN: Constipation [...] mg, 300 mL, 300 mL/Hr, IV Piggyback, R51AYxa amLODIPine: 5 mg, Oral, Daily carvedilol: 6.25 mg, Oral, BID cloNIDine: 0.1 mg, Oral, BID docusate sodium: 100 mg, Oral, BID doxycycline + Sodium Chloride 0.9% intravenous solution 100 mL: 100 mg, 50 mL/Hr, IV Piggyback, K67KKzm glucagon: 1 mg, IntraMuscular, Q15Min, PRN: Other [...] 0.9% 100 mL 100 mg, IV Piggyback, Z98HHvc enoxaparin 30 mg/0.3 ml inj 30 mg 0.3 mL, SubCutaneous, I21IXrg famotidine 20 mg/2 mL inj 20 mg 2 mL, IV Push, Q12H insulin regular 1 unit/0.01 mL inj 3mL Scale B, SubCutaneous, Q6H isosorbide MONOnitrate ER 30 mg tab 90 mg 3 Tab, Oral, Daily lactobacillus acidophilus cap 1 Cap, Oral, BID levothyroxine 100 mcg tab 100 mcg 1 Tab, Oral, Daily linezolid *PREMIX* 600 mg 300 mL, IV Piggyback, N83ZJzf methylPREDNISolone SUCCinate 40 mg inj 40 mg, [...] Problem list: Medical Hypertension / SNOMED CT 95244882 / Confirmed, Active Problems (1) Hypertension Objective [...] and Plan PEA cardiopulmonary arrest -Occurred at [facility] during a Stress Test with [...]
--- OUTSIDE RECORDS SUMMARY | 2024-08-25 10:22 | XMS_ITS | Encounter Summary ---
Author Organization [employer] iatives Address [address] [place] [address] Care Team Providers Care Territory Sales Representative Name Role Phone Unavailable Primary Care Provider Unavailabl e Encounter Details Date Type Department Care Team (Late st Contact Info) Description 02/05/2021 Transcribed Document [facility] [place] Medicine [facility] [place] [address] ProviderDick MD [facility] [place] [address] Social History Tobacco Use Types [...] - Dick ProviderMD - 02/05/2021 1:23 PM BUSINESS SUPPORT ASSISTANT [facility] Dr. Johnson [place] [address] MORALES CISCO [...] Cardinal Marinelli Discharge Summary: MED Unit at [facility]. RN report # [phone]. Transportation: [facility] wheelchair van at 1430 Follow-Up Appointments Follow [...] provider. This is important. Medicines ??? Take fvxq-ruo-ylbssbp and prescription medicines only as told by [...] provider. Document Revised: 11/02/2018 Document Reviewed: 11/02/2018 eSNF Patient Education ?? 2020 [employer]ify. Acute Respiratory Distress Syndrome, Adult Acute respiratory [...] these instructions at home: Medicines ??? Take upby-aiw-ztruwwk and prescription medicines only as told by [...] important. Where to find more information ??? [place] [employer]: https://www.lung.org/ ??? ARDS Foundation: https://ardsglobal.org/ [...] provider. Document Revised: 04/08/2020 Document Reviewed: 03/21/2020 eSNF Patient Education ?? 2020 [employer]NF Inc. Weakness Weakness is a lack of [...] Consider working with a physical therapist or pet trainer who can develop an exercise plan to help you gain muscle strength. General instructions ??? Take sqjw-hzy-hxwhpad and prescription medicines only as told by [...] provider. Document Revised: 09/28/2018 Document Reviewed: 09/28/2018 [employer] Patient Education ?? 2020 [employer]SNF Inc. Acute Respiratory Failure, Adult Acute respiratory [...] these instructions at home: Medicines ??? Take yizr-ruv-riumkxe and prescription medicines only as told by [...] breathe, such as a ventilator. ??? Take qvvb-epx-lovorzy and prescription medicines only as told by your health care provider. ??? Contact a health care provider if your symptoms do not improve or if they get worse. This information is not intended to replace advice given to you by your health care provider. Make sure you discuss any questions you have with your health care provider. Document Revised: 02/09/2020 Document Reviewed: 02/09/2020 eSNF Patient Education ?? 2020 Em[employer]ify. Emergency Awareness and Preventative Care STROKE is [...] Assistance with quitting is available by contacting 9-971-BOAN-NOW. This is a free resource providing counseling, [...] range between ( 0.0 and 7.0 ) [place] #: 1.39 K/uL -- Normal range between ( 0.16 and 1.00 ) Eos #: 0.07 x10(3)/uL -- Normal range between ( 0.00 and 0.80 ) [place] %: 14.2 % -- Normal range between [...] 11 ) Hypochromia: 1+ RBC Morphology: Abnormal [place] Percent Man: 6 % -- Normal range [...] -- Normal range between ( 0 and 49994 ) RBC Count BF: 1150 /uL -- Normal range between ( 0 and [address]85 ) Body Fluid Review for Pathologist: Body [...] was given the opportunity to ask questions. Patient/Sap Basis Name: Patient/Sap Basis Signature: Relationship to Patient: Clinician/Hospital Sap Basis Signature: Date: documented in this encounter Plan of Treatment Not on file documented as of this encounter Visit Diagnoses Not on filedocumented in this encounter
--- OUTSIDE RECORDS SUMMARY | 2024-08-25 10:22 | XMS_ITS | Encounter Summary ---
Author Organization [employer] iatives Address [address] [place] [address] Care Team Providers Care Key Account Coordinator Name Role Phone Unavailable Primary Care Provider Unavailabl e Encounter Details Date Type Department Care Team (Late st Contact Info) Description 02/02/2021 Transcribed Document [facility] [place] [facility] [place] [address] ProviderDick MD [facility] [place] [address] Social History Tobacco Use Types [...] - Historical ProviderMD - 02/02/2021 9:22 AM SEMICONDUCTOR WAFERS ETCHER STRIPPER Patient: CISCO CAZARES Age: 75 years Sex: Female : 1945 Associated Diagnoses: None Author: NARENDRA JACOBSON MD Subjective Resting in bed Health Status Allergies: Allergic Reactions (Selected) No Known Allergies, Allergies (1) Active Reaction No Known Allergies None Documented Current medications: (Selected) Inpatient Medications Ordered Bumex: 2 mg, IV Push, 1-Time Chloraseptic Menthol 1.4% topical spray: 1 [place], Oral, Q2H, PRN: Sore Throat Dextrose 50% [...] Oral, At Bedtime Lovenox: 30 mg, SubCutaneous, F30ECbk MiraLax: 17 Gram, Oral, Daily, PRN: Constipation NORepinephrine injection 8 mg + NaCl 0.9% for drip 250 mL: TITRATE, IntraVENous Normal Saline Flush: 10 mL, IV Push, Q12H Normal Saline Flush: 10 mL, IV Push, See Comment, PRN: IV Use Pepcid: 20 mg, IV Push, Q12H SOLU-Medrol: 40 mg, IV Push, S94NCxa Tylenol: 650 mg, Oral, Q4H, PRN: Fever [...] mL: 100 mg, 50 mL/Hr, IV Piggyback, Q51KCgv glucagon: 1 mg, IntraMuscular, Q15Min, PRN: Other [...] 0.9% 100 mL 100 mg, IV Piggyback, X32LShr enoxaparin 30 mg/0.3 ml inj 30 mg 0.3 mL, SubCutaneous, N25SHtu famotidine 20 mg/2 mL inj 20 mg 2 mL, IV Push, Q12H insulin regular 1 unit/0.01 mL inj 3mL Scale B, SubCutaneous, Q6H isosorbide MONOnitrate ER 30 mg tab 90 mg 3 Tab, Oral, Daily lactobacillus acidophilus cap 1 Cap, Oral, BID levothyroxine 100 mcg tab 100 mcg 1 Tab, Oral, Daily methylPREDNISolone SUCCinate 40 mg inj 40 mg, IV Push, H91DDlu metolazone 2.5 mg tab 5 mg 2 [...] Push, Q4H phenol 1.4% throat spray 1 [place], Oral, Q2H polyethylene glycol 3350 pwd 17 g pkt 17 Gram 1 Packet, Oral, Daily Problem list: All Problems Hypertension / SNOMED CT 22878089 / Confirmed, Active Problems (1) Hypertension Objective [...] 24 Hours) Radiology Results (Last 48 hours) [id number] -- 01/29/2021 22:07 CR Chest 1 Vw [...]
--- OUTSIDE RECORDS SUMMARY | 2024-08-25 10:22 | XMS_ITS | Encounter Summary ---
Author Organization [email or web address]atives Address [address] [place] [address] Care Team Providers Care Design Cell Engineer Name Role Phone Unavailable Primary Care Provider Unavailabl e Encounter Details Date Type Department Care Team (Late st Contact Info) Description 02/01/2021 Transcribed Document [facility] [place] [facility] [place] [address] ProviderDick MD [address] [place] [address] Social History Tobacco Use Types Packs/Day [...] - Historical ProviderMD - 02/01/2021 8:25 AM FORMING PRESS OPERATOR Patient: CISCO CAZARES Age: 75 years Sex: Female : 1945 Associated Diagnoses: None Author: WINSTON MORENO MD-INF Basic Information CC: Sepsis, probable aspiration pneumonia History of Present Illness 75 yo female with h/o T2DM, HLD, hypothyroidism, and HTN who presented to [facility] on 01/29/21 by transfer from [facility] for cardiology evaluation. The patient was [...] creatinine of 1.9. She was transferred to [facility]. On arrival on 01/29, her Tlow was [...] 100 - 100 mg, IV Piggyback, Inj, U23CCha, infuse over 2 Hour(s), order duration: 7 Day(s), Routine linezolid (Zyvox) - 600 mg, IV Piggyback, Inj, O26MDzy, infuse over 1 Hour(s), order duration: 7 Day(s), Routine Immunology methylPREDNISolone (SOLU-Medrol) - 40 mg, IV Push, Inj, Q12H, Routine Anticoagulant enoxaparin (Lovenox) - 30 mg, SubCutaneous, Inj, Q43WHga Cardiovascular NORepinephrine 8 mg + Sodium Chloride [...] list: All Problems Hypertension / SNOMED CT 76985600 / Confirmed, Active Problems (1) Hypertension Histories Past Medical History: Active Hypertension (96860628), T2DM Hypothyroidism HLD Family History: Unable to obtain., Cancer, heart attack, hyperlipidemia, hypertension Procedure history: No active procedure history items have been selected or recorded., Cardiac catheterization Colonoscopy Colostomy Hysterectomy Thyroidectomy Social History Social & Psychosocial Habits No Data Available . Single, lives in [place], [place]. Denies tobacco, alcohol, or illicit drug [...] No tenderness, No deformity. Integumentary: Warm, Dry, [place], No rash. Neurologic: Alert, Normal sensory, Normal [...] Radiology results Radiology Results (Last 48 hours) [id number] -- 01/29/2021 22:07 CR Chest 1 Vw [...] dictated by ASHLEE Jenkins. Diagnostic Findings: ACC: [id number] ORDER: Culture AFB and Stain DATE: 01/30/2021 10:46 SOURCE: Bronchial Alveolar Lavage SITE: Lung R Reports AFB Stain Concentrate 01/31/2021 14:05 No Acid Fast Bacilli seen == ACC: [id number] ORDER: Culture Bronch Wash and Stain DATE: 01/30/2021 10:46 SOURCE: Right Lower Lobe SITE: Reports Pre 01/31/2021 07:02 No growth GS 01/30/2021 14:00 No organisms seen. Few White Blood Cells == ACC: [id number] ORDER: Culture Sputum and Stain DATE: 01/29/2021 23:26 SOURCE: Tracheal Aspirate SITE: Reports Pre 01/31/2021 06:54 Light respiratory georgina isolated GS 01/30/2021 06:17 <25 Epithelial cells/LPF >25 WBC/LPF Rare Gram Positive Cocci in pairs == ACC: [id number] ORDER: Culture Blood DATE: 01/29/2021 22:39 SOURCE: Blood SITE: Reports Pre 02/01/2021 06:02 No growth at 2 days. Pre 01/31/2021 06:01 No growth at 1 day. Pre 01/30/2021 16:01 Culture less than 24 Hrs old == ACC: [id number] ORDER: Culture Blood DATE: 01/29/2021 22:39 SOURCE: Blood SITE: Reports Pre 02/01/2021 06:02 No growth at 2 days. Pre 01/31/2021 06:01 No growth at 1 day. Pre 01/30/2021 16:01 Culture less than 24 Hrs old == ACC: [id number] ORDER: Culture Fungus DATE: 01/30/2021 10:46 SOURCE: Bronchial Alveolar Lavage SITE: Lung R Reports EMMY 01/30/2021 14:00 No Fungal elements seen == . Creatinine Clearance (Current Encounter/Past 24 Hours) Creatinine Level 2.30 mg/dL SD 02/01/2021 04:26 Bun/Creatinine 13.9 02/01/2021 03:27 Estimated [...]
--- OUTSIDE RECORDS SUMMARY | 2024-08-25 10:22 | XMS_ITS | Encounter Summary ---
Author Organization [employer]atives Address [address] [place] [address] Care Team Providers Care Toll Lineman Name Role Phone Unavailable Primary Care Provider Unavailabl e Encounter Details Date Type Department Care Team (Late st Contact Info) Description 02/02/2021 Transcribed Document [facility] [place] [facility] [place] [address] ProviderDick MD [address] [place] [address] Social History Tobacco Use Types [...] - Historical ProviderMD - 02/02/2021 8:24 AM MORTGAGE PROTECTION SPECIALIST Discharge Summary, CHROME POLISHER Entered On: 02/02/2021 8:25 EST Performed On: 02/02/2021 8:24 EST by MADELYN COLORADO, CHROME POLISHER Discharge Notation. CHROME POLISHER Dysphagia Treatment After Discharge : No Discharge Diet : Regular Discharge Liquids : Thin Discharge Compensatory Strategies : Slow rate Repeat Instrumental Prior To : Not applicable Discharge Summary Comment, CHROME POLISHER : Pt appears ready to initiate a regular diet. ST to sign off. MADELYN COLORADO SLP - 02/02/2021 8:24 EST Swallow Plan/Goals Swallow LTG Grid CHROME POLISHER Skein Straightener Goal #1 CHROME POLISHER Mcc Goal #2 Swallow LTG : Establish safe oral diet without aspiration Other: Pt goal: home Status : Goal met Date Met : 02/02/2021 EST MADELYN COLORADO SLP - 02/02/2021 8:24 EST MADELYN COLORADO, CHROME POLISHER - 02/02/2021 8:24 EST Swallow Goals Grid Goal #1 Swallow STG : Other: Reeval Related To : Aspiration prevention, Return to oral intake Date to Meet : 02/02/2021 EST Status : Goal met Date Met : 02/02/2021 MADELYN OSORIO, CHROME POLISHER - 02/02/2021 8:24 EST Electronically signed by [facility], [facility] Conversion Civil Engineer'S Aide Cerner at 06/22/2022 7:26 PM CDT documented in this encounter Plan of Treatment Not on file documented as of this encounter Visit Diagnoses Not on filedocumented in this encounter
--- OUTSIDE RECORDS SUMMARY | 2024-08-25 10:22 | XMS_ITS | Encounter Summary ---
Author Organization [employer] Address [address] [place] [address] Care Team Providers Care Hardscape Foreman Name Role Phone Unavailable Primary Care Provider Unavailabl e Encounter Details Date Type Department Care Team (Late st Contact Info) Description 02/05/2021 Transcribed Document [facility] [place] [facility] [place] [address] ProviderDick MD [address] [place] [address] Social History Tobacco Use Types Packs/Day [...] - Historical ProviderMD - 02/05/2021 10:08 AM BUSINESS AND MARKETING TEACHER Patient: CISCO CAZARES Age: 75 years Sex: Female : 1945 Associated Diagnoses: None Author: WINSTON NUÑEZ MD-INF Basic Information CC: Sepsis, probable aspiration pneumonia History of Present Illness 75 yo female with h/o T2DM, HLD, hypothyroidism, and HTN who presented to [facility] on 01/29/21 by transfer from [facility] for cardiology evaluation. The patient was [...] creatinine of 1.9. She was transferred to [facility]. On arrival on 01/29, [...] 100 - 100 mg, IV Piggyback, Inj, L13PLfx, infuse over 2 Hour(s), order duration: 7 Day(s), Routine Immunology predniSONE - 30 mg, Oral, Tab, Daily, order duration: 5 Day(s), Routine Anticoagulant enoxaparin (Lovenox) - 30 mg, SubCutaneous, Inj, F26TPpa Cardiovascular hydrALAZINE - 50 mg, Oral, Tab, [...] (Chloraseptic Menthol 1.4% topical spray) - 1 Crystal, Oral, Crystal, Q2H, PRN for Sore Throat, Routine Vitamins [...] No tenderness, No deformity. Integumentary: Warm, Dry, [place], No rash. Neurologic: Alert, No focal deficits, [...] Troponin C 0.771 (JAN 29) , ACC: [id number] ORDER: Culture Blood DATE: 01/29/2021 22:39 SOURCE: Blood SITE: Reports Final 02/04/2021 06:01 No growth at 5 days. Pre 02/03/2021 06:01 No growth at 4 days. Pre 02/02/2021 06:02 No growth at 3 days. Pre 02/01/2021 06:02 No growth at 2 days. Pre 01/31/2021 06:01 No growth at 1 day. Pre 01/30/2021 16:01 Culture less than 24 Hrs old == ACC: [id number] ORDER: Culture Blood DATE: 01/29/2021 22:39 SOURCE: Blood SITE: Reports Final 02/04/2021 06:01 No growth at 5 days. Pre 02/03/2021 06:01 No growth at 4 days. Pre 02/02/2021 06:02 No growth at 3 days. Pre 02/01/2021 06:02 No growth at 2 days. Pre 01/31/2021 06:01 No growth at 1 day. Pre 01/30/2021 16:01 Culture less than 24 Hrs old == ACC: [id number] ORDER: Culture MRSA Surveillance DATE: 02/01/2021 09:11 SOURCE: Nasal SITE: Reports Final 02/02/2021 12:55 No MRSA isolated For Infection Control surveillance only. == ACC: [id number] ORDER: Culture Bronch Wash and Stain DATE: 01/30/2021 10:46 SOURCE: Right Lower Lobe SITE: Reports Final 02/01/2021 09:52 No growth Pre 01/31/2021 07:02 No growth GS 01/30/2021 14:00 No organisms seen. Few White Blood Cells == ACC: [id number] ORDER: Culture Sputum and Stain DATE: 01/29/2021 23:26 SOURCE: Tracheal Aspirate SITE: Reports Final 02/01/2021 09:26 Light respiratory georgina isolated No Staph aureus or MRSA isolated. Pre 01/31/2021 06:54 Light respiratory georgina isolated GS 01/30/2021 06:17 <25 Epithelial cells/LPF >25 WBC/LPF Rare Gram Positive Cocci in pairs == ACC: [id number] ORDER: Culture AFB and Stain DATE: 01/30/2021 10:46 SOURCE: Bronchial Alveolar Lavage SITE: Lung R Reports AFB Stain Concentrate 01/31/2021 14:05 No Acid Fast Bacilli seen == ACC: [id number] ORDER: Culture Fungus DATE: 01/30/2021 10:46 SOURCE: Bronchial Alveolar Lavage SITE: Lung R Reports EMMY 01/30/2021 14:00 No Fungal elements seen == . Chest x-ray results Radiology Results (Last 48 hours) [id number] -- 01/29/2021 22:07 CR Chest 1 Vw [...] of abx and line, readmission, and . Electronically signed by Parviz, [place] Conversion Physician Assistant Psychiatry Cerner at 06/22/2022 7:18 PM CDT documented in this encounter Plan of Treatment Not on file documented as of this encounter Visit Diagnoses Not on filedocumented in this encounter
--- OUTSIDE RECORDS SUMMARY | 2024-08-25 10:22 | XMS_ITS | Encounter Summary ---
Author Organization [employer] Address [address] [place] [address] Care Team Providers Care Consignee Name Role Phone Unavailable Primary Care Provider Unavailabl e Encounter Details Date Type Department Care Team (Late st Contact Info) Description 02/02/2021 Transcribed Document [facility] [place] [facility] [place] [address] ProviderDick MD [facility] [place] [address] Social History Tobacco Use Types [...] - Historical Provider, - 02/02/2021 12:45 PM ORNAMENTAL BRICK INSTALLER Treatment Intervention, OT Entered On: 02/03/2021 15:10 [...] KYLE LAND, OTR/L - 02/03/2021 15:06 EST Drafter Geological Goals, OT Grooming LTG Grid Goal #1 [...] mobility to EOB. pt min a X2 BUILDING MAINTENANCE SUPERINTENDENT for tx to BSC. Increased needed for pt to have BM. Pt min a to stand and max a for toileting hygiene. Pt min x2 BUILDING MAINTENANCE SUPERINTENDENT for transfer to recliner. Pt educated on [...]
--- OUTSIDE RECORDS SUMMARY | 2024-08-25 10:22 | XMS_ITS | Encounter Summary ---
Author Organization [employer] Address [address] [place] [address] Care Team Providers Care Production Counter Name Role Phone Unavailable Primary Care Provider Unavailabl e Encounter Details Date Type Department Care Team (Late st Contact Info) Description 02/10/2021 Transcribed Document [facility] [place] [facility] [place] [address] ProviderDick MD [address] [place] [address] Social History Tobacco Use Types [...] - Historical ProviderMD - 02/10/2021 12:01 PM BUFFING WHEEL FORMER AUTOMATIC Please Modify Before Signing CLINICAL DOCUMENTATION CLARIFICATION [...] ml Documented in MAR Summary on 01/30/2021 CDS/Sat Act Instructor Signature: Sheila Maradiaga Phone #: [phone] EXTN: [id number] Date/Time:02/10/2021, 09:01 This is a permanent part of the Medical Record Q6 2020 On license of [facility] Reviewed: 06/2020 documented in this encounter Plan of Treatment Not on file documented as of this encounter Visit Diagnoses Not on filedocumented in this encounter
--- OUTSIDE RECORDS SUMMARY | 2024-08-25 10:22 | XMS_ITS | Encounter Summary ---
Author Organization [employer] Address [address] [place] [address] Care Team Providers Care International Logistics Analyst Name Role Phone Unavailable Primary Care Provider Unavailabl e Encounter Details Date Type Department Care Team (Late st Contact Info) Description 02/01/2021 Transcribed Document [facility] [place] [facility] [place] [address] ProviderDick MD [facility] [place] [address] Social History Tobacco Use Types [...] - Historical Provider, - 02/01/2021 9:20 AM CUPOLA MAN Evaluation, Occupational Therapy Entered On: 02/02/2021 12:45 [...] within reach RN/PCT Informed Comment : JASS Ramriez Treatment End Time : 02/02/2021 11:01 EST [...] Transfer Assist Level : Assist, moderate KYLE LNAD OTR/Dieter - 02/02/2021 12:30 EST Functional Mobility [...] KYLE LAND OTR/L - 02/02/2021 12:30 EST Turning Sander Operator Goals, OT Grooming LTG Grid Goal #1 [...] UE. MMT 4/5. Pt min a x2 NOVELTY PRINTING MACHINE OPERATOR for transfer to chair. pt left upright [...] Charges OT Eval Moderate Complexity : 1 KYLE ALND OTR/L - 02/02/2021 12:30 EST documented in this encounter Plan of Treatment Not on file documented as of this encounter Visit Diagnoses Not on filedocumented in this encounter
--- OUTSIDE RECORDS SUMMARY | 2024-08-25 10:22 | XMS_ITS | Clinical Summary ---
Author Organization [employer] Address [address] [place] [address] Care Team Providers Care Teacher Assistant Name Role Phone Unavailable Primary Care [...]
--- OUTSIDE RECORDS SUMMARY | 2024-08-25 10:22 | XMS_ITS | Encounter Summary ---
Author Organization [employer] Address [address] [place] [address] Care Team Providers Care Academic Support Director Name Role Phone Unavailable Primary Care Provider Unavailabl e Encounter Details Date Type Department Care Team (Late st Contact Info) Description 02/02/2021 Transcribed Document [facility] [place] [facility] [place] [address] ProviderDick MD [place] [address] Social History Tobacco Use Types [...] - Historical ProviderMD - 02/02/2021 3:02 PM PLASMA SPECIALIST Patient: CISCO CAZARES Age: 75 years Sex: Female : 1945 Associated Diagnoses: None Author: JOLIE PAGAN MD-[facility] Subjective Chief complaint. 02/02/21 extubated aake not in distress Health Status Allergies: Allergic Reactions (Selected) No Known Allergies, Allergies (1) Active Reaction No Known Allergies None Documented Current medications: (Selected) Inpatient Medications Ordered Chloraseptic Menthol 1.4% topical spray: 1 [place], Oral, Q2H, PRN: Sore Throat Dextrose 50% [...] Oral, At Bedtime Lovenox: 30 mg, SubCutaneous, [id number] MiraLax: 17 Gram, Oral, Daily, PRN: Constipation NORepinephrine injection 8 mg + NaCl 0.9% for drip 250 mL: TITRATE, IntraVENous Normal Saline Flush: 10 mL, IV Push, Q12H Normal Saline Flush: 10 mL, IV Push, See Comment, PRN: IV Use Pepcid: 20 mg, Oral, Daily SOLU-Medrol: 40 mg, IV Push, [id number] Senokot: 8.6 mg, Oral, BID Tylenol: 650 [...] mL: 100 mg, 50 mL/Hr, IV Piggyback, [id number] glucagon: 1 mg, IntraMuscular, Q15Min, PRN: Other [...] 0.9% 100 mL 100 mg, IV Piggyback, [id number] enoxaparin 30 mg/0.3 ml inj 30 mg 0.3 mL, SubCutaneous, X58SCfr famotidine 20 mg tab 20 mg 1 Tab, Oral, Daily insulin lispro 1 unit/0.01 mL inj Scale C:, SubCutaneous, AC and at Bedtime isosorbide MONOnitrate ER 30 mg tab 90 mg 3 Tab, Oral, Daily lactobacillus acidophilus cap 1 Cap, Oral, BID levothyroxine 100 mcg tab 100 mcg 1 Tab, Oral, Daily methylPREDNISolone SUCCinate 40 mg inj 40 mg, IV Push, U20KCot piperacillin-tazobactam + NaCl 0.9% 50 mL 2.25 [...] Push, Q4H phenol 1.4% throat spray 1 Monroe, Oral, Q2H polyethylene glycol 3350 pwd 17 g pkt 17 Gram 1 Packet, Oral, Daily Problem list: Medical Hypertension / SNOMED CT [id number] / Confirmed, Active Problems (1) Hypertension Objective [...] and Plan PEA cardiopulmonary arrest -Occurred at [facility] during a Stress Test with Dr. Zabala [...]
--- OUTSIDE RECORDS SUMMARY | 2024-08-25 10:22 | XMS_ITS | Encounter Summary ---
Author Organization [employer] iatives Address [address] [place] [address] Care Team Providers Care Service Administrator Name Role Phone Unavailable Primary Care Provider Unavailabl e Encounter Details Date Type Department Care Team (Late st Contact Info) Description 02/02/2021 Transcribed Document [facility] [place] [facility] [place] [address] ProviderDick MD [facility] [place] [address] Social History Tobacco Use Types [...] - Historical ProviderMD - 02/02/2021 10:31 PM CLINICAL PHARMACIST Patient: CISCO CAZARES Age: 75 Years Sex: [...] kidney function reaches its clinical baseline. Franck Huang MD -Nephrology Note dictated with [employer]a voice recognition system Partner with Dr. Razo, Dr. Rodriguez and Dr. Shay - Medications amLODIPine, 10 mg= 1 Tab, Oral, Daily carvedilol, 12.5 mg= 1 Tab, Oral, BID Chloraseptic Menthol 1.4% topical spray, 1 [place], Oral, Q2H, PRN cloNIDine, 0.1 mg= 1 [...] Bedtime Lovenox, 30 mg= 0.3 mL, SubCutaneous, A75SSst MiraLax, 17 Gram= 1 Packet, Oral, Daily, [...] Oral, BID SOLU-Medrol, 40 mg, IV Push, X80QOxq Tylenol, 650 mg= 2 Tab, Oral, Q4H, [...] # 0.54 x10(3)/uL (Low) 02/02/2021 03:24 EST Griggs % 3.5 % 02/02/2021 03:24 EST Griggs # 0.41 K/uL 02/02/2021 03:24 EST Eos [...] 02/02/2021 03:24 EST Electronically signed by Parviz, [facility] Conversion Corn Shredder Cerner at 06/22/2022 7:21 PM CDT documented in this encounter Plan of Treatment Not on file documented as of this encounter Visit Diagnoses Not on filedocumented in this encounter
[2024-08-25 10:30] LABS: Microscopic, Urine URINE MICROSCOPIC (MICROSCOPIC)
[2024-08-25 10:44] LABS: Hematocrit 33.7 % (37.0-47.0); Hemoglobin 11.2 g/dL (12.2-16.2); Mean Corpuscular HGB Conc 33.2 g/dL (31.8-35.4); Mean Corpuscular Hemoglobin 30.7 pg (27.0-31.2); Mean Corpuscular Volume 92.3 fl (81-99); Nucleated Red Blood Cells # 0 10^3/uL; Nucleated Red Blood Cells % 0 %; Platelet Count 252 K/mm3 (142-424); Red Blood Count 3.65 M/mm3 (4.20-5.40); Red Cell Distribution Width 15.4 % (11.5-17.5)
[2024-08-25 11:36] LABS: Albumin Level 4.1 g/dl (3.5-5.0); Anion Gap 15.9 mEq/L (5-15); Blood Urea Nitrogen 27 mg/dl (7-17); Carbon Dioxide 23 mmol/L (22.0-30.0); Chloride 103 mmol/L (98-107); Estimated Glomerular Filt Rate 31 ml/min (>60); GFR (African American) 38 ML/MIN (>60); Glucose 182 mg/dl (74-100); Phosphorous 3.7 mg/dl (2.5-4.5); Potassium 3.9 mmoL/L (3.5-5.1); Sodium 138 mmol/L (136-145)
[2024-08-25 11:47] LABS: Intact Parathyroid Hormone 154.4 pg/mL (7.5-53.5)
[2024-08-25 11:53] LABS: 25-OH Vitamin D, Total 31.2 ng/mL (30-100)
[2024-08-25 11:57] LABS: Appearance,Urine CLEAR (Clear); Bilirubin,Urine Negative (Negative); Blood, Urine Negative (Negative); Color,Urine YELLOW (Yellow); Glucose,Urine (UA) Negative (Negative); Ketones,Urine 1+ (Negative); Leukocyte Esterase,Urine Negative (Negative); Nitrate,Urine Negative (Negative); PH,Urine 5.5 (5.0-8.5); Protein,Urine Negative (Negative); Specific Gravity, Urine <= 1.005 (1.005-1.030); Urobilinogen,Urine 0.2 EU/dl (0.2)
[2024-08-25 12:10] LABS: Squamous Epithelial Cell,Urine Occasional #/hpf (0-5)
[2024-08-25 12:11] LABS: Creatinine,Urine Random 28 mg/dL (Not Estab.)
== END 2024-08-25 23:59 | disposition home or self-care (01) ==
LOC: LAB 10:18
PROVIDERS: PCP Family Medicine; Visit Provider Nurse Practitioner
DX: N18.4 Chronic kidney disease, stage 4 (severe) (principal)
CPT/HCPCS: 36415; 80069; 81001; 82306; 82570; 83970; 84156; 85027

== ENCOUNTER 2024-09-21 11:03 | Outpatient (CLI) | payer MEDICARE, MEDICAID, SELFPAY ==
--- OUTSIDE RECORDS SUMMARY | 2024-09-01 11:00 | XMS_ITS | Encounter Summary ---
Author Organization [facility] Address [address] [place] [address] Care Team Providers Care Stress Analyst Name Role Phone Baljeet Hackett MD Primary Care Provider [phone] Reason for Referral * Consultation (Routine) - Authorized Specialty Diagnoses / Procedures Referred By Contluke t Referred To Contact Diagnoses CKD (chronic kidney disease) stage 4, GFR 15-29 ml/min (CMS/HCC) Delilah Calderon APRN [address] [address] Phone: tel: fax: Referral ID Status Reason Start Date Expiration Date V isits Requested Visits Authorized [id number] Authorized 09/01/2024 03/03/2026 1 1 Reason for Visit * Reason Comments Follow-up Pt is a 79 year old female that presents to the clinic on this date for a follow up. Encounter Details Date Type Department Care Team (Late st Contact Info) Description 09/01/2024 11:00 AM EDT Office Visit [facility] [address] [place] [id number] Delilah Calderon APRN [address] [address] CKD (chronic kidney disease) stage 4, GFR 15-29 ml/min (CMS/HCC) (Primary Dx); Essential hypertension; Chronic kidney disease-mineral and bone disorder; Diabetes mellitus due to underlying condition with diabetic chronic kidney disease, unspecified CKD stage, unspecified whether meterman insulin use (CMS/[facility]) Social History Tobacco Use Types Packs/Day Years [...] Sign Reading Time Taken Comments Blood Pressure 141/88 09/01/2024 10:59 AM EDT Pulse 60 09/01/2024 10:59 AM EDT Temperature - - Respiratory Rate 16 09/01/2024 10:59 AM EDT Oxygen Saturation 96% 09/01/2024 10:59 AM EDT Inhaled Oxygen Concentration - - Weight 64 kg (141 lb) 09/01/2024 10:59 AM EDT Height 152.4 cm (5') 09/01/2024 10:59 AM EDT Body Mass Index 27.54 09/01/2024 10:59 AM EDT documented in this encounter Miscellaneous Notes * Progress Notes - Delilah Calderon APRN - 09/01/2024 11:00 AM EDT SUBJECTIVE Carol Cazares is a 79 y.o. female who presents for follow-up. Ms. Cazares ho DM2 and HTN here for follow up regarding CKD. She reports DM2 for about 10 years, no known retinopathy or neuropathy. No CAD, no PCI, h/o LHC. No CVA, no CHF. No family h/o CKD. No serious infections. No kidney stones. She rarely uses Aleve. She reports compliance using a pill box forthe week but has difficulty with understanding the [...] concerns. Appetite good, no edema OBJECTIVE Vitals: 09/01/24 1059 BP: (!) 141/88 Pulse: 60 Resp: 16 SpO2: 96% PHYSICAL EXAMINATION CONSTITUTIONAL: Conversant, well developed, NAD. EYES: No proptosis or lid-lag. EARS: Normal hearing. RESPIRATORY: Normal respiratory effort. CARDIOVASCULAR: No peripheral edema. EXTREMITIES: No edema. No cyanosis. SKIN: No rash. No lesions. No ulcers. MUSCULOSKELETAL: Normal gait and station. No digital cyanosis. NEURO: Cranial nerves II-XII grossly intact. LAB RESULTS 08/25/24 scanned in and reviewed with patient. ASSESSMENT/PLAN 1. CKD4, most recent eGFR 31, DM2/HTN,, intermittent NSAIDS all risks 2. HTN, 3. Vitd deficiency, resolved, 4. DM2 -- Patient's Bp slightly above goal today. She did take her meds, but notes it was immediately prior to coming in for appointment. BP at home at goal. BP most recent PCP office good per patient. Encouraged her to keep BP log and return to clinic with her at next visit. Risks of disease progression with uncontrolled HTN reviewed. Patient unclear of most recent A1c, but notes no concern noted from PCP. RTC 6 months, sooner if needed Would avoid metformin given renal function documented in this encounter Plan of Treatment Scheduled Orders Name Type Priority Associated Diagnoses Orde r Schedule CBC W/O Differential Lab Routine CKD (chronic kidney disease) stage 4, GFR 15-29 ml/min (CMS/HCC) Expected: 09/01/2024 (Approximate), Expires: 03/03/2026 PTH Intact Total Lab Routine CKD (chronic kidney disease) stage 4, GFR 15-29 ml/min (CMS/HCC) Expected: 09/01/2024 (Approximate), Expires: 03/03/2026 Protein, Random, Urine with Creatinine Lab Routine CKD (chronic kidney disease) stage 4, GFR 15-29 ml/min ([facility]) Expected: 09/01/2024 (Approximate), Expires: 03/03/2026 Renal Function Panel, Plasma Lab Routine CKD (chronic kidney disease) stage 4, GFR 15-29 ml/min (CMS/HCC) Expected: 09/01/2024 (Approximate), Expires: 03/03/2026 Urinalysis with reflex microscopic (Culture NOT Included) Lab Routine CKD (chronic kidney disease) stage 4, GFR 15-29 ml/min (CMS/HCC) Expected: 09/01/2024 (Approximate), Expires: 03/03/2026 Vitamin D 25 Hydroxy Lab Routine CKD (chronic kidney disease) stage 4, GFR 15-29 ml/min (CMS/HCC) Expected: 09/01/2024 (Approximate), Expires: 03/03/2026 Scheduled Referrals Name Type Priority Associated Diagnoses Order Schedule Follow Up Nephrology Outpatient Referral Routine CKD (chronic kidney disease) stage 4, GFR 15-29 ml/min (CMS/HCC) Expected: 03/03/2025 (Approximate), Expires: 10/01/2025 documented as of this encounter Visit Diagnoses Diagnosis CKD (chronic kidney disease) stage 4, GFR 15-29 ml/min (CMS/HCC)- Primary Chronic kidney disease, Stage IV (severe) Essential hypertension Unspecified essential hypertension 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, unspecified CKD stage, unspecified whether alf insulin use ([facility]) documented in this encounter Additional Health Concerns Assessment Noted Time A fall risk assessment has been complete d for the patient 02/08/2023 11:44 AM EST A Body Mass Index follow-up plan has been documented for the patient 09/01/2024 11:30 AM EDT documented as of this encounter Care Teams Stress Analyst Relationship Specialty Start Date End Date Baljeet Hackett MD [address] [place] [address] #1 #1 [place] [address] PCP - General 07/19/20 documented as of this encounter
--- OUTSIDE RECORDS SUMMARY | 2024-09-21 11:05 | XMS_ITS | Data Portability ---
Author Organization [facility] ADMIN Address [address] [place] [address] Assessment No assessment recorded. Plan of Treatment [...] By Organization Details Last Modified Time 02/23/2024 [id number] Patient does hav e asymmetric sensorineural hearing [...] audio gram No observ ation record ed. [email or web address] Not Available 2023 12:45:34 Result Notes None recorded. Problems Name Problem SNOMED Code Status Onset Date Resolution Date Notes Provider Name and Address Organization Details Recorded Time Sensorineural hearing loss 33527547 Active 2023 PAULINE HERNANDEZ [address] , [place], [address] , [facility] & [place] 4 10:54:47 Asymmetrical sensorineural hearing loss 939297281 Active 2023 PAULINE HERNANDEZ [address], [place], [address] , [facility] & [place] 4 10:57:21 Problem Notes None recorded. Procedures Surgical History Date Name Laterality Status Provider Name and Address Organization Details Recorded Time [facility] 13:56:05 colonoscopy completed Cynthia [facility] & [place] 02/23/2024 13:56:13 Imaging Results None recorded. Procedure [...] Address Organization Details Last Updated DateTime 02/23/2024 80276.15 g 26.8 kg/m2 152.4 cm 97.5 [degF] [facility] [place] 02/23/2024 13:54:25 Social History None recorded. Functional [...] SNOMED-CT Code Diagnosis ICD10 Code Diagnosis Note [id number] PAULINE HERNANDEZ [facility] [address] 02/09/2024 10:32:41 02/09/2024 10:57:41 Asymmetrical sensorineural hearing loss 121765671 H90.5 [id number] Venita Coley MD [facility] [address] 02/23/2024 13:41:12 02/23/2024 14:17:34 Asymmetrical sensorineural hearing loss 236696261 H90.5 Sensorineu ral hearing loss of bilateral ears 218101807 H90.3 [id number] PAULINE HERNANDEZ [facility] [address] 03/22/2024 09:42:30 03/22/2024 10:08:39 Asymmetrical sensorineural hearing loss 587348897 H90.5 Health Concerns Section Related Observation LastModified by Organization Detai ls LastModified Time None Recorded Concern Status LastModified by Organization Details LastModified Time None Recorded Advance Directives Directive None Recorded Payers Insurance Date Sequence Insurance Name Policy Number Policy Kumar Covered Member ID Kumar Member ID Guarantor Name 03/19/2024 2 [place] [employer] - FFS/TRADITIO NAL Carol Cazares [id number] Carol Cazares 03/19/2024 1 [place] Carol Cazares [id number] Carol Cazares Notes Date Note Type Note [...] as planned. PAULINE HERNANDEZ [address], [place], [address], [facility] & [place] 02/09/2024 10:57:37 02/23/2024 text/html 02/23/24-Patient is here for medical clearance for hearing amplification. She has had very longstanding hearing loss and has actually purchased evzt-xzk-avnzwyf amplification several years ago on her own. [...] family. Venita Coley MD [address], [place], [address], [facility] & [place] 02/24/2024 07:30:37 03/22/2024 text/html Ms. Cazares was s een today for a hearing aid trial in the LE. F/u 2-3 weeks. PAULINE HERNANDEZ [address], [place], [address], [facility] & [place] 03/22/2024 10:19:52 OBGyn Episode No OBEpisode recorded.
--- OUTSIDE RECORDS SUMMARY | 2024-09-21 11:05 | XMS_ITS | Clinical Summary ---
Author Organization [facility] Address [address] [place] [address] Care Team Providers Care Belt Sander Name Role Phone Baljeet Hackett MD Primary Care Provider [phone] Allergies No known active allergies Medications glipiZIDE [...] 2 diabetes mellitus without complications 0 07/06/2023 Encounters Date Type Department Care Team Description 09/01/2024 11:00 AM EDT Office Visit [facility] [address] [place] [address] Delilah Calderon APRN CKD (chronic kidney disease) stage 4, GFR 15-29 ml/min ([facility]) (Primary Dx); Essential hypertension; Chronic kidney disease-mineral and bone disorder; Diabetes mellitus due to underlying condition with diabetic chronic kidney disease, unspecified CKD stage, unspecified whether fdc insulin use ([facility]) 09/01/2024 Travel from Last 3 Months Immunizations Immunization Administration Dates Next Due Moderna [...] Pulse 60 09/01/2024 10:59 AM EDT Temperature 36.8 C (98.2 F) 02/18/2024 9:45 AM EST Respiratory Rate 16 09/01/2024 10:59 AM EDT Oxygen Saturation 96% 09/01/2024 10:59 AM EDT Inhaled Oxygen Concentration - - Weight 64 kg (141 lb) 09/01/2024 10:59 AM EDT Height 152.4 cm (5') 09/01/2024 10:59 AM EDT Body Mass Index 27.54 09/01/2024 10:59 AM EDT Plan of Treatment Health Maintenance Due Date Last Done Comments [facility]-Bone Density Scan 1945 [facility]-Depression Screening 1945 [facility]-Hepatitis C Screening 1945 [facility]-Medicare Annual Wellness (AWV) 1945 [facility]-Infant/Child/Adol SDOH Screenings 1945 Diabetes: Dental Exam 1957 [facility]- SDOH Screenings 1965 [facility]-Adult SDOH Screenings 1965 [facility]-Pneumococcal Vaccine: 50+ Years (1 of 2 - PCV) 1966 [facility]-Zoster Vaccines (1 of 2) 1997 [facility]-Diabetes: Hemoglobin A1C 10/02/2014 04/04/2014 [facility]-DTaP,Tdap,and Td Vaccines (2 - Td or Tdap) 11/30/2021 12/01/2011, 10/28/2006 [facility]-RSV Vaccine: 60+ Years or (1 - 1-dose 75+ series) 2022 [id number]-[id number]-[id number] Vaccine (4 - season) 2023 05/21/2021, 05/15/2020, 04/17/2020 [facility]-Influenza Vaccine (#1) 2024 [facility]-Obesity Intervention Completed 025, 02/18/2024, 08/23/2023, Additional history exists HPV Vaccines Aged Out No longer eligi [...] Health Maintenance Insurance MEDICARE [place] Care Teams Belt Sander Relationship Specialty Start Date End Date Baljeet Hackett MD [address] [place] [address] #1 #1 [place] [id number] PCP - General 07/19/20
--- OUTSIDE RECORDS SUMMARY | 2024-09-21 11:05 | XMS_ITS | Encounter Summary ---
Author Organization Healthcare Address [address] [place] [address] Care Team Providers Care Director Child Abuse Therapy Name Role Phone Baljeet Hacktet MD Primary Care Provider [phone] Encounter Details Date Type Department Care Team (Latest Contact Info) Description 09/01/2024 Travel Social History Tobacco Use Types Packs/Day [...] documented as of this encounter Care Teams Director Child Abuse Therapy Relationship Specialty Start Date End Date Baljeet Hackett MD [address] [place] [address] #1 #1 [place] [address] PCP - General 07/19/20 documented as of this encounter
--- NOTE | 2024-09-21 11:15 | CA_ITS ---
APPROVED REPORT EXAM: Comprehensive 2D, Doppler, and color-flow Echocardiogram Quality Control Tester: Katelin Maurer RT(R) Ht: 5 ft 0 in Wt: 134lbs BSA: 1.57 BP: 178/92 mmHg Indications: HFpEF, CAD, Diabetes 2D Dimensions LVEF (Blancas's) 48.60 % F: 54 - 74 LV Volume 105.80 mL F: 46 - 106 LV Volume Index 67.4 mL/m2 F: 29 - 61 LA Volume 44.00 mL LA Volume Index 28.03 mL/m2 (M/F) 16-34 EF AP4 52.10 % EF AP2 44.2 % EF BP 48.6 % GL Strain -13.1 % M-Mode Dimensions RVDd 2.60 cm (0.9-2.6) LA Diam 4.13 cm (1.9-4.0) LVDd 5.23 cm (3.5-5.7) LVDs 3.84 cm (3.5-5.7) IVSd 0.64 cm (0.6-1.1) PWd 0.82 cm (0.6-1.1) EF (Teich) 51.60% FS 26.60% EDV (Teich) 131.20 mL TAPSE 1.92 (<1.7) ESV (Teich) 63.50 mL LV Diastology E Decel Time 160 (160-240 msec) E/A Ratio 1.6 Aortic Valve HERBERTH Index 0.70 cm2/m2 AoV Peak Сергей. 287.0 (50-130 cm/s) AO Peak GR. 33.10 mmHg AO Mean GR. 16.30 (<5 mmHg) AO VTI 64.9 (18-25 cm) HERBERTH (VTI) 1.12 (2.5-4.5 cm2) Mitral Valve MV E Max Сергей. 144.0 (40-130 cm/s) MV A Velocity 91.0 (40-130 cm/s) E/A Ratio 1.57 MV PHT 47.0 ms Tricuspid Valve TR P. Velocity 393.00 cm/s Left Ventricle The left ventricle is normal size. The left ventricular systolic function is normal. The left ventricular ejection fraction is within the normal range. There is increased LV wall thickness. There is normal LV segmental wall motion. Grade 2 diastolic dysfunction is present. LVEF is 60%. Right Ventricle The right ventricle is mildly dilated. The right ventricular systolic function is normal. Atria Left atrium is moderately dilated. Right atrium is moderately dilated. There is no Doppler evidence of interatrial shunt. Aortic Valve Aortic valve is moderately thickened. Mild aortic stenosis is present. HERBERTH by continuity equation is 1.7 cm???. Peak velocity 2.8 m/s. Mean AV gradient 17 mmHg. Max AV gradient 35 mmHg. Trace aortic regurgitation. Mitral Valve Mild mitral annular calcification is present. The mitral valve leaflets are mildly thickened. No evidence of mitral valve stenosis. Mild to moderate mitral regurgitation. Tricuspid Valve Tricuspid valve is grossly normal in structure and function. Mild tricuspid regurgitation is present. Elevated RVSP 50-55 mmHg. Pulmonic Valve The pulmonary valve is normal in structure. Mild pulmonic regurgitation. Great Vessels The aortic root is normal in size. IVC is normal in size and collapses >50% with inspiration. Pericardium There is a small sized, circumferential pericardial effusion present. The largest pocket measures 0.4 cm anteriorly. No evidence of chamber collapse. No echo indications of tamponade. Other Information Study Quality: Fair Conclusion Normal biventricular systolic function. Grade 2 diastolic dysfunction is present. Mild RV dilation. Biatrial dilation. Mild (HERBERTH by continuity equation is 1.7 cm???. Peak velocity 2.8 m/s. Mean AV gradient 17 mmHg. Max AV gradient 35 mmHg.). Mild MR, mild TR, mild PI. Small sized, circumferential pericardial effusion present. The largest pocket measures 0.4 cm anteriorly. No evidence of chamber collapse. No echo indications of tamponade. Due to the presence of small-sized pericardial effusion, serial limited TTEs are suggested for evaluation of progression vs. resolution. Clinical correlation is recommended. Electronically signed by : Miranda Hoyt MD 09/26/2024 23:34:35
== END 2024-09-21 23:59 | disposition home or self-care (01) ==
LOC: RT 11:04
PROVIDERS: PCP Family Medicine; Visit Provider Nurse Practitioner Family
DX: I08.8 Other rheumatic multiple valve diseases (principal); I31.39 Other pericardial effusion (noninflammatory); I50.30 Unspecified diastolic (congestive) heart failure; I25.10 Atherosclerotic heart disease of native coronary artery without angina pectoris; R94.31 Abnormal electrocardiogram [ECG] [EKG]; R79.89 Other specified abnormal findings of blood chemistry; E11.9 Type 2 diabetes mellitus without complications
CPT/HCPCS: 93306

== ENCOUNTER 2025-01-12 10:11 | Outpatient (CLI) | payer MEDICARE, MEDICAID, SELFPAY ==
--- NOTE | 2025-01-12 10:15 | CA_ITS ---
APPROVED REPORT EXAM: Limited 2D and color flow Echocardiogram Employment Trainer: RT Santa(R) Ht: 5 ft 0 in Wt: 143lbs BSA: 1.62 BP: 147/68 mmHg Indications: Pericardial effusion on echo 09/2024. Aortic stenosis, CAD. 2D Dimensions EF AP4 57.10 % GL Strain -15.3 % Aortic Valve HERBERTH Index 0.77 cm2/m2 AoV Peak Сергей. 265.0 (50-130 cm/s) AO Peak GR. 28.10 mmHg AO Mean GR. 13.80 (<5 mmHg) AO VTI 61.0 (18-25 cm) HERBERTH (VTI) 1.28 (2.5-4.5 cm2) Conclusion This is a limited TTE to evaluate for pericardial effusion. Limited windows are obtained. There is a small-sized, circumferential pericardial effusion. The largest pocket measures 0.4 cm in diastole anteriorly. No echo indications of tamponade. Mild is present. The transaortic gradients are unchanged from prior TTE 09/21/2024. Electronically signed by : Miranda Hoyt MD 01/20/2025 00:05:06
== END 2025-01-12 23:59 | disposition home or self-care (01) ==
LOC: RT 10:12
PROVIDERS: PCP Family Medicine; Visit Provider Nurse Practitioner Family
DX: I31.39 Other pericardial effusion (noninflammatory) (principal); I35.0 Nonrheumatic aortic (valve) stenosis
CPT/HCPCS: 93308